=== PATIENT | male | born 1990 | race African-American/Black ===

== ENCOUNTER 2024-12-24 14:32 | Emergency (ER) | payer SELFPAY ==
[2024-12-24] VITALS (13 sets, daily range): BP systolic 88–130; BP diastolic 58–103; PULSE 69–94; RESP 14–25; TEMP 31.3–33.4; O2SAT 86–100; BMI 26.5
--- NOTE | 2024-12-24 14:42 | CT_ITS ---
PROCEDURE: BRAIN/HEAD WITHOUT CONTRAST 12/24/2024 REASON FOR EXAM: MENTAL STATUS CHANGE TECHNIQUE: Head CT without intravenous contrast. Coronal and Sagittal reconstruction series were provided. One or more dose reduction techniques were used (e.g., Automated exposure control, adjustment of the mA and/or kV according to patient size, use of iterative reconstruction technique. FINDINGS: Brain: Within normal limits for age CSF Spaces: Normal Sinuses/Mastoids: Clear at visualized levels Bones: Unremarkable. CT/Brain/Head without Contrast IMPRESSION: NORMAL NONCONTRAST HEAD CT. Reading Location: [id number]
--- NOTE | 2024-12-24 14:44 | EKG12_ITS ---
Test Reason : OD/POST ARREST Blood Pressure : */* mmHG Vent. Rate : 90 BPM Atrial Rate : 90 BPM P-R Int : 150 ms QRS Dur : 134 ms QT Int : 470 ms P-R-T Axes : 89 49 39 degrees QTcB Int : 574 ms Critical Test Result: Long QTc Normal sinus rhythm Non-specific intra-ventricular conduction block Abnormal ECG Baselie artifact affects QT measurement Confirmed by Jamey Porter ([id number]), assistant production editor MORIAH DAHL ([id number]) on 12/30/2024 12:59:32 PM Referred By: Confirmed By: Jamey Porter
--- NOTE | 2024-12-24 14:45 | EX.ED.CRITCA ---
HPI History of Present Illness Chief Complaint: Overdose Narrative Narrative: History and physical limited secondary to patient condition, intubation. According to EMS and to police, patient had a significant other who awoke and noticed that he was unresponsive. Police report that patient has history of heavy alcohol use, but no drug use. Upon EMS arrival, bystanders stated that he had a pulse, but when they checked he was pulseless. He was found to be in ventricular fibrillation so he was defibrillated at 120 J into asystole. EMS reports drooling IO, as well as obtaining IV access. They performed CPR for 12 minutes and 2 rounds of epinephrine were given prior to return of spontaneous circulation. They did note that he had a low blood pressure afterwards, as well as low blood sugar. They administered D10, and had intubated the patient. According to police, significant other stated that he has a history of heart problems that had not necessarily been addressed. PFSH PFSH Allergy/AdvReac Type Severity Reaction Status Date / Time barium sulfate Allergy Unknown Unknown Verified 12/24/24 14:45 Penicillins Allergy Unknown unknown Verified 12/24/24 14:45 Social History Smoking Status: Current every day smoker ROS ROS ED ROS Narrative Unable to obtain from patient secondary to patient condition. Review of Systems ROS Unobtainable: due to endotracheal tube EXAM Physical Exam Narrative Exam Narrative: GCS 3 T. Unresponsive to pain. Pupils fixed and dilated with no corneal reflex. Positive agonal respirations. Cardiovascular examination regular rate and rhythm. Palpable radial pulse. Abdomen soft and nontender without rigidity. No response to pain. Const Vital Signs: 12/24/24 14:32 12/24/24 14:34 12/24/24 14:59 Temperature 88.4 F L 89.2 F L Temperature Source Core Core Pulse Rate 69 94 Respiratory Rate 14 17 Respiratory Pattern Blood Pressure 94/58 L 98/58 L 130/103 H Blood Pressure Mean 70 71 112 Pulse Ox 100 100 Oxygen Delivery Method Mechanical Ventilator Mechanical Ventilator Fraction of Inspired Oxygen (FIO2) 12/24/24 15:05 12/24/24 15:30 12/24/24 15:30 Temperature 89.6 F L Temperature Source Core Pulse Rate 73 91 Respiratory Rate 25 H 20 H Respiratory Pattern Normal Blood Pressure 113/75 Blood Pressure Mean 87 Pulse Ox 100 86 Oxygen Delivery Method Mechanical Ventilator Fraction of Inspired Oxygen (FIO2) 100 50 12/24/24 16:00 Temperature Temperature Source Pulse Rate Respiratory Rate Respiratory Pattern Blood Pressure 94/70 Blood Pressure Mean 78 Pulse Ox 93 Oxygen Delivery Method Mechanical Ventilator Fraction of Inspired Oxygen (FIO2) MDM MDM MDM Narrative Medical decision making narrative: Concern is for cardiac arrest and brain status post arrest. Patient is hypothermic. Although he has spontaneous return of circulation, comprehensive for workup will be pursued. After IV fluid bolus, patient is maintaining his blood pressure. Patient started on Sun hugger. Warmed fluids were also administered. I reviewed his laboratory work and he has elevated white count at 13.5 with hemoglobin 13.8, hematocrit 41.6, platelet count 181. Potassium low at 2.9 which will be replaced. BUN of 23 with creatinine 3.06 consistent with acute kidney injury. ALT is elevated at 355, AST elevated at 324 with AST pending. This may be from shock liver. High-sensitivity troponin also elevated at 662 which I think is most likely from his cardiac arrest. Urine for drugs of abuse is negative. Alcohol level is negative as well. ABG was obtained and in review he has a pH of 6.87 with PCO2 of 89 and PO2 of 280. His rate was increased from 16 to [address] of the brain was obtained and results pending. On my independent review, I see no evidence of acute hemorrhage. In discussion with the patient's family, they would like him transferred to a tertiary care center. Additionally, critical care medicine is not available here currently, only through telemedicine. I discussed patient with [facility] And they currently have a waiting list. I then contacted [facility]. EKG was obtained and interpreted by myself independently as normal sinus rhythm at 90 bpm with QTc of 574. No acute ST changes. No STEMI. Patient admitted and bated in the field by EMS. On review/independent interpretation of his chest x-ray in 1 view, he has right mainstem intubation with whiteout of the left lung. His ET tube will be pulled back to 24 as respiratory therapy states that is currently at 28. Repeat chest x-ray will be performed afterwards. I discussed the patient with Dr. Ibarra with coronary care critical medicine. He would like to discuss the patient with medical ICU and Dr. Ortez with cardiology as well. There are available beds, and in discussion with the patient's family, they would like him transferred via [facility]. If air transport is available at that time, patient will be transferred in critical condition. History & Record Review Discussion w/independent historian: Family Lab Data Attestation: I reviewed the patient's lab results. Labs: Laboratory Results - last 24 hr 12/24/24 12/24/24 14:37 14:50 WBC 13.5 H RBC 4.53 L Hgb 13.8 Hct 41.6 MCV 91.8 MCH 30.5 MCHC 33.2 RDW Std Deviation 42.9 RDW Coeff of Brooks 12.8 Plt Count 181 MPV 8.8 Immature Gran % (Auto) 1.500 H Neut % (Auto) 76.3 H Lymph % (Auto) 13.9 L Freeborn % (Auto) 7.9 Eos % (Auto) 0.0 Baso % (Auto) 0.4 Absolute Neuts (auto) 10.3 H Absolute Lymphs (auto) 1.88 Nucleated RBC % 0.4 Sodium 141 Potassium 2.9 L Chloride 100 Carbon Dioxide 14.7 L Anion Gap 26 H BUN 23 H Creatinine 3.06 H Estim Creat Clear Calc 34.79 L Est GFR (MDRD) Non-Af 26 L BUN/Creatinine Ratio 7.4 L Glucose 96 Calcium 9.1 Total Bilirubin < 0.15 AST 324 H ALT 355 H Alkaline Phosphatase 58 Troponin T High Sens 662 H* Total Protein 7.1 Albumin 4.5 Globulin 2.6 Albumin/Globulin Ratio 1.7 Urine Opiates Screen NEGATIVE U Buprenorphine Qual NEGATIVE Ur Oxycodone Screen NEGATIVE Urine Methadone Screen PRESUMPTIVE POSITIVE Urine Fentanyl Screen NEGATIVE Ur Barbiturates Screen NEGATIVE Ur Phencyclidine Scrn NEGATIVE Ur Amphetamines Screen NEGATIVE U Benzodiazepines Scrn NEGATIVE Urine Cocaine Screen NEGATIVE U Cannabinoids Screen NEGATIVE Ethyl Alcohol < 10.1 ABG Data ABG results: ABG 12/24/24 15:09 Specimen Type ART Sample Site L Radial pH 6.88 L* Bicarbonate Actual 16.7 L Total CO2 19 Base Excess -17 L O2 Saturation 100 H O2 % 100.0 ABG pCO2 89.5 H* ABG pO2 281 H Junior Test Positive Respiration Rate 16 O2 Delivery Device Adult Vent Vent Mode AC Tidal Volume 450.0 POC PEEP 5 Crit Call To/Read Back Yes Blood Gas Notified Whom AR Blood Gas Notified Time 15:11:25 Radiography Chest X-Ray - ED: 1 View, Read by ED Physician, Read by Radiologist and - (Right mainstem bronchus intubation with a whiteout of left lung) Diagnostic Testing: Clinical Impression(s) from Imaging Studies Brain CT 12/24/24 14:42 IMPRESSION: NORMAL NONCONTRAST HEAD CT. Reading Location: [id number] Chest X-Ray 12/24/24 15:34 IMPRESSION: Endotracheal tube with the tip approximately 3 cm past the claire likely in the right mainstem bronchus with left lung collapse. Nasogastric tube with the tip below the diaphragm. Reading Location: [facility] Management Discussion w/another healthcare provider: Automatic Lump Making Machine Tender Critical Care Time Critical Care Time: Yes Critical care time (excluding procedures): 30-74 minutes (32), Including time spent:, Discussing w/Patient &/or Family/Nurse Practitioner Physicians Assistant, Discussing w/Consultants, Arranging Admission or Transfer and Performing Direct Patient Care at Bedside Discharge Plan Triage Chief Complaint: Overdose ED Provider: Lamine Hoffman Dx/Rx/DC Orders Clinical Impression: Cardiopulmonary arrest, Signs of return of spontaneous circulation, Respiratory failure, Hypothermia, Hypokalemia, Elevated troponin Primary Care Provider: Care Physician,No Primary Referrals: Care Physician,No Primary [Primary Care Provider] - Print Language: Guatemalan Disposition Disposition: Acute Care Hospital
[2024-12-24 14:51] LABS: Absolute Lymphocyte Count 1.88 X10^3/uL (0.83-4.51); Absolute Neutrophil Count 10.3 X10^3/uL (2.0-7.7); Basophil# 0.05 X10^3/uL; Basophil% 0.4 % (0-1); Hematocrit 41.6 % (40-54); Hemoglobin 13.8 g/dL (13.0-16.5); Lymphocyte # 1.88 X10^3/ul (0.83-4.51); Lymphocyte % 13.9 % (19-41); Mean Corp Hgb Conc 33.2 g/dL (32-36); Mean Corpuscular Hgb 30.5 pg (27.0-32.0); Mean Corpuscular Volume 91.8 fL (80-94); Mean Platelet Vol. 8.8 fl (6.2-12.0); Monocyte# 1.07 X10^3/uL; Monocyte% 7.9 % (0-10); NRBC Flagged by Analyzer 0.4 % (0-5); Neutrophil # 10.28 X10^3/uL (2.7-7.7); Neutrophil % 76.3 % (47-70); Platelet Count 181 K/mm3 (150-450); RBC Distribution Width CV 12.8 % (11.6-14.6); RBC Distribution Width SD 42.9 fl (35.1-43.9); Red Blood Count 4.53 M/mm3 (4.6-6.2); White Blood Count 13.5 K/mm3 (4.4-11.0)
[2024-12-24] MEDS: Rocuronium Bromide 50 MG/5 ML Vial IV (14:53)
[2024-12-24] MEDS: 0.9% Normal Saline (1000mL) 1,000 ML 1000 ML IV ×2 (15:00→15:49)
--- NOTE | 2024-12-24 15:07 | CPS ---
Pt was intubated by EMS on scene. Pt came to ER with 7.5 ETT, 28cm at lip and bilateral breath sounds noted.
[2024-12-24 15:08] LABS: Alcohol, Blood (Medical)-Serum < 10.1 mg/dL (<=10.0)
--- NOTE | 2024-12-24 15:11 | ED.RN ---
Per EMS they gave 4 narcans initially on scene. Pt then coded and per EMS they did CPR for 12 minutes and gave epi twice plus a push dose of epi. They intubated and gave D10 d/t blood glucose of 42. Pt arrived at ED intubated and with pulse but unresponsive. Blood Glucose on arrival was 84.
[2024-12-24 15:12] LABS: Amphetamine Urine NEGATIVE (<1000 ng/mL); Barbiturate Urine NEGATIVE (< 200 ng/mL); Benzodiazepine Urine NEGATIVE (< 200 ng/mL); Buprenorphine Urine NEGATIVE (< 200 ng/mL); Cocaine Urine NEGATIVE (< 300 ng/mL); Fentanyl, Urine NEGATIVE; Opiates Urine NEGATIVE (< 300 ng/mL); Oxycodone, Urine NEGATIVE (< 100 ng/mL); PCP Urine NEGATIVE (< 25 ng/mL); THC Urine NEGATIVE (< 50 ng/mL)
[2024-12-24 15:12] LABS: ALB/GLOB Ratio 1.7 RATIO (0.9-2.4); Alanine Aminotransfer ALT/SGPT 355 U/L (<=46); Albumin, Serum 4.5 g/dL (3.5-5.0); Alkaline Phosphatase 58 U/L (40-129); Anion Gap 26 (5-15); BUN 23 mg/dL (4-19); BUN/Creat Ratio 7.4 RATIO (10-20); Calcium,Total 9.1 mg/dL (7.6-11.0); Carbon Dioxide 14.7 mmol/L (21.0-32.0); Chloride 100 mmol/L (98-108); Creatinine, Serum 3.06 mg/dL (0.70-1.20); EST Glomerular Filtration Rate 26 (>60); Estimated Creatinine Clearance 34.79 ml/min (50-250); Globulin 2.6 g/dL (2.2-4.2); Glucose 96 mg/dL (70-99); Potassium 2.9 mmol/L (3.3-5.1); Protein, Total 7.1 g/dL (5.9-8.4); Sodium Level 141 mmol/L (133-145); Total Bilirubin < 0.15 mg/dL (0.00-1.30)
[2024-12-24 15:14] LABS: Allen Test Positive; Base Excess -17 mmol/L (-2 to +2); Bicarbonate 16.7 mmol/L (22-26); Blood Gas Specimen Type ART; Mode AC; O2 Delivery Device Adult Vent; PEEP 5; PO2 281 mmHG (75-100); RR 16; SITE L Radial; SO2 100 % (95-99); Time Given 15:11:25; Total Carbon Dioxide 19 mmol/L; pCO2 89.5 mmHg (35-45); pH 6.88 (7.35-7.45)
[2024-12-24 15:18] LABS: Troponin T High Sensitivity 662 ng/L (<=22)
[2024-12-24 15:30] LABS: Methadone Urine PRESUMPTIVE POSITIVE (< 300 ng/mL)
--- NOTE | 2024-12-24 15:34 | RAD_ITS ---
PROCEDURE: CHEST 1 VIEW (PORTABLE) 12/24/2024 REASON FOR EXAM: POSTINTUBATION BY EMS TECHNIQUE: Frontal view of the chest. FINDINGS: Hardware: Endotracheal tube with the tip 3 cm beyond the claire in the right mainstem bronchus. Nasogastric tube with the tip below the diaphragm. Heart: Cardiac and mediastinal contours are stable. Lungs: Opacification of the left hemithorax consistent with left lung collapse. Bones: The bones are unremarkable. Other: RAD/Chest 1 View (Portable) IMPRESSION: Endotracheal tube with the tip approximately 3 cm past the claire likely in the right mainstem bronchus with left lung collapse. Nasogastric tube with the tip below the diaphragm. Reading Location: [facility]
--- NOTE | 2024-12-24 15:41 | ED.RN ---
THIS QUALITY CONTROL CLERK FIRST CALLED [facility] TO TRANSFER PT, PER FAMILY REQUEST. TRANSFER WAS STARTED. [facility] CALLED BACK FOR DR AMARAL, AND ACCEPTED PT. PT IS WAITING ON AN ICU BED AT [facility]. PER [facility] WAITLIST FOR ICU BED IS TEN PTS LONG. [facility] ASKED THIS QUALITY CONTROL CLERK TO BEGIN TRANSFER TO [facility]. TRANSFER WAS STARTED AND NOW ([id number]) WAITING FOR A DR CALL BACK FROM [facility].
[2024-12-24 15:45] LABS: AST(SGOT) 324 U/L (<=37)
[2024-12-24] MEDS: KCL 40mEq in 0.9% NS 40 MEQ/1,000 ML IV.SOLN 250 MEQ IV (15:48)
--- NOTE | 2024-12-24 16:15 | RAD_ITS ---
PROCEDURE: CHEST 1 VIEW (PORTABLE) 12/24/2024 REASON FOR EXAM: ET TUBE PLACEMENT TECHNIQUE: Frontal view of the chest. COMPARISON: 12/24/2024 FINDINGS: Hardware: Interval retraction endotracheal tube, with the tip now 2.7 cm from the claire. Stable feeding tube. Heart: Heart size is mildly enlarged. Lungs: Significant interval improvement left bridger thorax aeration, with atelectasis in the lower lobe. Stable to slightly worsened airspace opacities in the right lower lobe. No pneumothorax. Bones: The bones are unremarkable. Other: RAD/Chest 1 View (Portable) IMPRESSION: See above Reading Location: [facility]
--- NOTE | 2024-12-24 17:30 | CM.ED ---
Social work Reason for referral: possible overdose with intubation This SW responded to patient's room to provide support to patient's family members present. Multiple family members and friends (about 20) were present in between patient's room and waiting room. Due to lack of other patient family needing it, the waiting room was opened up for this patient's friends and family as a private space (with warehouse freight handler permission). Over the next few hours, this SW responded to patient family needs as necessary (offering supportive presence, getting water, providing updates, actively listening, etc). Patient's toxicology screens came back negative for drugs of abuse and alcohol and this was expressed to patient's mother who was wondering. Per Dr. Hoffman's note, patient did have history of heart problems that had reportedly not necessarily been addressed. SW provided support to family and friends as needed until patient was transferred to [facility]. Karine Davidson, STEM ROLLER OR CRUSHER OPERATOR, RN CRITICAL CARE
--- NOTE | 2024-12-24 17:42 | ED.RN ---
Report called to Ernesto at [facility].
--- NOTE | 2024-12-24 17:50 | ED.RN ---
[facility] CALLED BACK WITH A BED AND THIS KNOWLEDGE ANALYST SET UP A RIDE. [facility] WAS CALLED REQUESTING A HELICOPTER FOR TRANSPORT. THEY WEREN'T FLYING. [facility] WAS CALLED AND THE ETA GIVEN WAS [phone].
[2024-12-24 18:18] LABS: Troponin T High Sens 2 HR 455 ng/L (<=22)
--- NOTE | 2024-12-24 18:19 | ED.RN ---
Critical Troponin of 455 received from lab. Landis, primary RN, and Dr. Zavaleta notified.
--- NOTE | 2024-12-24 18:26 | ED.RN ---
Care transfered to [facility].
== END 2024-12-24 18:41 | disposition short-term general hospital (02) ==
PROVIDERS: Emergency Provider Emergency Medicine; Visit Provider Emergency Medicine
DX: I46.9 Cardiac arrest, cause unspecified (principal); J96.90 Respiratory failure, unspecified, unspecified whether with hypoxia or hypercapnia; E87.6 Hypokalemia; R79.89 Other specified abnormal findings of blood chemistry; F17.200 Nicotine dependence, unspecified, uncomplicated
CPT/HCPCS: 31500; 31720; 36600; 51702; 70450; 71045; 80053; 80307; 82077; 82803; 84484; 85025; 87070; 87205; 93005; 94002; 96365; 96366; 96375; 99285; A4216

== ENCOUNTER → 2025-01-23 | Outpatient (CLI) | payer SELFPAY ==
[2025-01-23 15:27] LABS: Absolute Lymphocyte Count 2.06 X10^3/uL (0.83-4.51); Absolute Neutrophil Count 2.9 X10^3/uL (2.0-7.7); Basophil# 0.03 X10^3/uL; Basophil% 0.5 % (0-1); Eosinophil# 0.14 X10^3/uL; Eosinophils% 2.5 % (0-5); Hematocrit 36.8 % (40-54); Hemoglobin 12.8 g/dL (13.0-16.5); Lymphocyte # 2.06 X10^3/ul (0.83-4.51); Lymphocyte % 36.9 % (19-41); Mean Corp Hgb Conc 34.8 g/dL (32-36); Mean Corpuscular Hgb 30.2 pg (27.0-32.0); Mean Corpuscular Volume 86.8 fL (80-94); Monocyte# 0.45 X10^3/uL; Monocyte% 8.1 % (0-10); NRBC Flagged by Analyzer 0 % (0-5); Neutrophil # 2.87 X10^3/uL (2.7-7.7); Neutrophil % 51.3 % (47-70); Platelet Count 437 K/mm3 (150-450); RBC Distribution Width CV 13.2 % (11.6-14.6); Red Blood Count 4.24 M/mm3 (4.6-6.2); White Blood Count 5.6 K/mm3 (4.4-11.0)
[2025-01-23 15:37] LABS: ALB/GLOB Ratio 1.3 RATIO (0.9-2.4); AST(SGOT) 33 U/L (<=37); Alanine Aminotransfer ALT/SGPT 64 U/L (<=46); Albumin, Serum 4.5 g/dL (3.5-5.0); Alkaline Phosphatase 92 U/L (40-129); Anion Gap 14 (5-15); BUN 8 mg/dL (4-19); BUN/Creat Ratio 10.7 RATIO (10-20); CPK Total, Creatine Kinase 68 U/L (24-195); Calcium,Total 10.2 mg/dL (7.6-11.0); Carbon Dioxide 25.9 mmol/L (21.0-32.0); Chloride 98 mmol/L (98-108); Cholesterol 212 mg/dL (<=200); Creatinine, Serum 0.79 mg/dL (0.70-1.20); EST Glomerular Filtration Rate 118 (>60); Globulin 3.5 g/dL (2.2-4.2); Glucose 86 mg/dL (70-99); High Density Lipoprotein 45 mg/dL; Low Density Lipoprotein Calc. 145 mg/dL; Potassium 4.3 mmol/L (3.3-5.1); Sodium Level 138 mmol/L (133-145); Total Bilirubin 0.33 mg/dL (0.00-1.30); Triglycerides 111 mg/dL; Very Low Density Lipoprotein 22 mg/dL (5-40); cholesterol:hdl ratio screen 4.69
== END | disposition home or self-care (01) ==
PROVIDERS: PCP Family Medicine; Referring Provider Family Medicine; Visit Provider Family Medicine
DX: Z86.74 Personal history of sudden cardiac arrest (principal); Z87.39 Personal history of other diseases of the musculoskeletal system and connective tissue
CPT/HCPCS: 36415; 80053; 80061; 82550; 85025

== ENCOUNTER 2025-07-12 22:17 | Emergency (ER) | payer MEDICAID, SELFPAY ==
[2025-07-12 22:18] VITALS: BP 130/99; PULSE 88; RESP 18; TEMP 36.7; O2SAT 99; BMI 24.4
--- OUTSIDE RECORDS SUMMARY | 2025-07-12 22:46 | XMS RPT_ITS | CCD ---
Author Organization [facility] Care Team Providers Care Cpr Instructor Name Role Phone Vera Gagnon Attending Unavailable Vera Gagnon Consulting Unavailable Vera Gagnon Unavailable Tabitha Galaviz Unavailable Unavailable Marsha Prajapati Unavailable Unavailable Unavailable Unavailable Breanna Roman Primary Care Provider [phone] Care Physician, No Primary Primary Care Provider Unavailable Hector Amaral MD Attending Provider Hector Amaral MD Emergency Provider Dr. Roman Rubio MD Primary Care Provider [phone] Dr. Roman Rubio MD Attending Provider [phone] Roman Rubio MD Referring Provider Breanna Roman Primary Care Provider [phone] Hector Amaral Attending Unavailable Care Physician, No Primary Primary Care Unava ilable Roman Rubio Referring Unavailable Roman Rubio Attending Unavailable Roman Rubio Primary Care Unavailable LUAN WILSON Attending [facility] Primary Care Unavailable BEBO JONES Admitting Unavailable HECTOR AMARAL Referring Unavailable BREANNA ROMAN Primary Care Unavailable STEFAN STREET Referring Unavailabl e DARIAN, [place] Primary Care Unavailable RY ALTAMIRANO Attending Unavailable EVELIA, RY Referring Unavailable DARIAN, [place] Primary Care Unavailable ASSRY BELTRAN Attending Unavailable ASSAALee, RY Referring Unavailable DARIAN, [place] Primary Care Unavailable RY ALTAMIRANO Attending Unavailable DARIAN, [place] Primary Care Unavailable STEFAN STREET Referring Unavailabl e RANERIN, [place] Primary Care Unavailable MATRSTEFAN PETERSON Referring Unavailabl e Allergies Allergy Classification Reported Allergen(s) Allergy Type Date of Onset Reaction(s) Facility (1 source) Barium Sulfate Drug Allergy 12-24-2024 Unknown [facility] (1 source) Penicillins Allergy to substance 12-24-2024 unknown [facility] (1 source) Barium sulfate Drug allergy (disorder) 12-24-2024 [facility] Repository (1 source) Penicillins Drug allergy (disorder) 12-24-2024 [facility] Repository (4 sources) Barium sulfate Allergy to substance 12-24-2024 Unknown [facility] (4 sources) Penicillins Drug Allergy 12-24-2024 Unknown [facility] Medications Current Medications Medication Drug Class(es) Dates Sig (Normalized) Sig (Original) [id number] 200 actuat albuterol 0.09 mg/actuat metered dose inhaler (12 sources) beta2-Adrenergic Agonist Start: 04-10-2025 take 4 puff(s) by inhalation once 4 puff, Inhalation, Once, On Thu04/10/25 at 1215, For 1 dose, Administer using an inhaler spacer. 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 8.5 g 11 02/03/2025 02/03/2026 Active apixaban 5 mg oral tablet (20 sources) Factor Xa Inhibitor Start: 01-09-2025 End: 07-09-2025 take 1 tablet by mouth twice daily apixaban (Eliquis) 5 MG tablet Indications: Other acute pulmonary embolism without acute cor pulmonale (HCC) Take 1 tablet (5 mg) by mouth 2 times daily. Can start after starter pack finishes 312 tablet 02/03/2025 07/09/2025 Active Start: 01-09-2025 60 actuat budesonide 0.08 mg/actuat / formoterol fumarate 0.0045 mg/actuat metered dose inhaler (3 sources) Corticosteroid, beta2-Adrenergic Agonist Start: 05-26-2025 End: 11-22-2025 take 2 puff(s) by mouth twice daily budesonide-formoterol (Symbicort) 80-4.5 MCG/ACT inhaler Indications: 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 Inhale 2 puffs 2 times daily. Rinse mouth with water after use to reduce aftertaste and incidence of candidiasis. Do not swallow. 10.2 g 3 05/26/2025 11/22/2025 Active folic acid 1 mg oral tablet (17 sources) Start: 01-03-2025 End: 01-10-2026 take 1 tablet by mouth once daily in the evening folic acid (Folvite) 1 MG tablet Take 1 tablet (1 mg) by mouth daily. 30 tablet 11 01/09/2025 2:00 PM EDT 01/10/2025 01/10/2026 Active Start: 12-28-2024 End: 01-02-2025 (4 sources) Start: 01-10-2025 End: 02-08-2025 Start: 01-09-2025 End: 01-09-2025 Completed/Discontinued Medications Medication Drug Class(es) Dates Sig (Normalized) Sig (Original) acetaminophen 32 mg/ml oral solution (2 sources) Start: 12-27-2024 End: 12-28-2024 take 1000 mg by mouth every eight hours albuterol 0.833 mg/ml / ipratropium bromide 0.167 mg/ml inhalation solution (2 sources) Anticholinergic, beta2-Adrenergic Agonist Start: 12-28-2024 End: 01-09-2025 amoxicillin 875 mg / clavulanate 125 mg oral tablet (6 sources) Penicillin-class Antibacterial Start: 01-09-2025 End: 02-03-2025 take 1 tablet by mouth every twelve hours in the evening amoxicillin-clavul anate (Augmentin) 875-125 MG tablet Take 1 tablet by mouth every 12 hours for 42 doses. 42 tablet 01/09/2025 2:00 PM EDT 01/09/2025 02/03/2025 Discontinued Start: 01-08-2025 End: 01-30-2025 asenapine 5 mg sublingual ta blet (4 sources) Atypical Antipsychotic Start: 01-02-2025 End: 01-03-2025 calcium chloride 0.0014 meq/ ml / potassium chloride 0.004 meq/ml / sodium chloride 0.103 meq/ml / sodium lactate 0.028 meq/ml injectable solution (12 sources) Start: 01-02-2025 End: 01-03-2025 Start: 12-27-2024 End: 12-27-2024 Start: 12-24-2024 End: 12-26-2024 100 ml calcium gluconate 20 mg/ml injection (4 sources) Start: 12-29-2024 End: 12-30-2024 cholecalciferol 9.52 unt/ml / glucose 357 mg/ml oral gel (2 sources) Vitamin D Start: 12-25-2024 End: 01-09-2025 100 ml dexmedetomidine 0.004 mg/ml injection (6 sources) Central alpha-2 Adrenergic Agonist Start: 12-27-2024 End: 01-03-2025 docusate sodium 10 mg/ml ora l suspension (2 sources) Start: 12-31-2024 End: 01-02-2025 0.6 ml enoxaparin sodium 100 mg/ml prefilled syringe (4 sources) Low Molecular Weight Heparin Start: 2025 End: 01-08-2025 Start: 01-02-2025 End: 2025 escitalopram 10 mg oral tablet (2 sources) Serotonin Reuptake Inhibitor Start: 11-17-2018 take 1 tablet by mouth once daily at bedtime Lexapro 10 MG Oral Tablet 1 (one) Tablet qhs for 0 days Quantity: 30 {Tablet} Refills: 3 Ordered: 17-Nov-2018 Vera Gagnon DO, DO, Kathleen Start : 17-Nov-2018 Active 20 ml etomidate 2 mg/ml injection (2 sources) General Anesthetic Start: 12-28-2024 End: 12-28-2024 2 ml fentaNYL 0.05 mg/ml injection (4 sources) Opioid Agonist Start: 12-28-2024 End: 12-28-2024 Start: 12-28-2024 End: 12-28-2024 Start: 12-24-2024 End: 12-24-2024 2 ml furosemide 10 mg/ml inj ection (20 sources) Loop Diuretic Start: 01-08-2025 End: 01-08-2025 Start: 12-28-2024 End: 01-04-2025 Start: 12-27-2024 End: 12-27-2024 glucagon (rdna) 1 mg injecti on (2 sources) Antihypoglycemic Agent Start: 12-25-2024 End: 01-09-2025 50 ml glucose 50 mg/ml injec tion (2 sources) Start: 12-25-2024 End: 01-09-2025 1 ml haloperidol 5 mg/ml pre filled syringe (4 sources) Typical Antipsychotic Start: 12-30-2024 End: 01-09-2025 Start: 12-28-2024 End: 12-28-2024 Start: 12-28-2024 End: 12-28-2024 0.5 ml heparin sodium, porcine 56679 unt/ml prefilled syringe (2 sources) Unfractionated Heparin, Anti-coagulant Start: 12-24-2024 End: 01-02-2025 1 ml hydrALAZINE hydrochloride 20 mg/ml injection (2 sources) Arteriolar Vasodilator Start: 12-30-2024 End: 01-09-2025 take 20 mg intravenously every four hours as needed for hypertension hydrocortisone 10 mg oral tablet (14 sources) Corticosteroid Start: 01-03-2025 End: 01-03-2025 Start: 01-02-2025 End: 01-03-2025 Start: 12-31-2024 End: 01-02-2025 Start: 12-31-2024 End: 01-02-2025 Start: 12-25-2024 End: 12-31-2024 take 50 mg intravenously every eight hours 1 ml HYDROmorphone hydrochloride 1 mg/ml cartridge (4 sources) Opioid Agonist Start: 12-28-2024 End: 12-28-2024 insulin isophane, human 100 unt/ml injectable suspension (2 sources) Start: 12-26-2024 End: 01-02-2025 inject 5 [IU] by subcutaneous injection every twelve hours insulin, regular, human 100 unt/ml injectable solution (2 sources) Insulin Start: 12-26-2024 End: 01-04-2025 ketamine 10 mg/ml injectable solution (2 sources) General Anesthetic Start: 12-30-2024 End: 12-30-2024 1 ml ketorolac tromethamine 15 mg/ml cartridge (2 sources) Nonsteroidal Anti-inflammatory Drug, Cyclooxygenase Inhibitor Start: 12-28-2024 End: 12-28-2024 Start: 12-28-2024 End: 12-28-2024 labetalol hydrochloride 5 mg/ml injectable solution (2 sources) beta-Adrenergic Blessing Start: 12-30-2024 End: 01-09-2025 take 10 mg intravenously every four hours as needed for hypertension Lactobacillus (2 sources) Start: 01-10-2025 End: 02-08-2025 take 4 tablets by mouth once daily in the evening Lactobacillus 0.05-0.05 MG tablet Take 4 tablets by mouth daily for 29 doses. 116 tablet 01/09/2025 2:00 PM EDT 01/10/2025 02/08/2025 Start: 01-10-2025 End: 02-08-2025 take 4 tablets by mouth once daily in the evening Lactobacillus 0.05-0.05 MG tablet Take 4 tablets by mouth daily for 29 doses. 116 tablet 01/09/2025 2:00 PM EDT 01/10/2025 02/08/2025 Active lidocaine 0.04 mg/mg medicated patch (4 sources) Antiarrhythmic, Amide Local Anesthetic Start: 12-28-2024 End: 01-09-2025 1 ml LORazepam 2 mg/ml injection (8 sources) Benzodiazepine Start: 12-28-2024 End: 12-28-2024 Start: 12-28-2024 End: 12-28-2024 Start: 12-28-2024 End: 12-28-2024 Start: 12-28-2024 End: 12-29-2024 take 2 mg intravenously every six hours as needed for anxiety 100 ml magnesium sulfate 40 mg/ml injection (2 sources) Start: 12-25-2024 End: 12-25-2024 5 ml metoprolol tartrate 1 m g/ml injection (8 sources) beta-Adrenergic Blessing Start: 2025 End: 01-09-2025 Start: 2025 End: 2025 Start: 2025 End: 2025 Start: 2025 End: 2025 Start: 01-05-2025 End: 2025 2 ml midazolam 1 mg/ml injec tion (10 sources) Benzodiazepine Start: 12-28-2024 End: 01-02-2025 Start: 12-24-2024 End: 12-24-2024 Start: 12-24-2024 End: 12-27-2024 mupirocin 0.02 mg/mg topical ointment (2 sources) RNA Synthetase Inhibitor Antibacterial Start: 12-24-2024 End: 12-29-2024 1 ml naloxone hydrochloride 0.4 mg/ml injection (2 sources) Opioid Antagonist Start: 12-24-2024 End: 01-09-2025 polyethylene glycol 3350 62771 mg powder for oral solution (2 sources) Osmotic Laxative Start: 12-28-2024 End: 01-09-2025 take 17 g by mouth every twenty-four hours as needed for constipation microencapsulated potassium chloride 10 meq extended release oral tablet (20 sources) Start: 01-05-2025 End: 2025 take 40 mEq by mouth every four hours Start: 01-03-2025 End: 01-03-2025 Start: 01-01-2025 End: 01-01-2025 Start: 12-28-2024 End: 01-02-2025 potassium phosphate 155 mg / sodium phosphate, dibasic 852 mg / sodium phosphate, monobasic 130 mg oral tablet (2 sources) Start: 12-30-2024 End: 12-30-2024 100 ml propofol 10 mg/ml inj ection (6 sources) General Anesthetic Start: 12-28-2024 End: 01-02-2025 Start: 12-25-2024 End: 12-27-2024 QUEtiapine 25 mg oral tablet (12 sources) Atypical Antipsychotic Start: 01-03-2025 End: 01-09-2025 Start: 12-31-2024 End: 01-02-2025 Start: 12-31-2024 End: 01-02-2025 Start: 12-30-2024 End: 12-31-2024 Start: 12-29-2024 End: 12-30-2024 rocuronium bromide 10 mg/ml injectable solution (2 sources) Nondepolarizing Neuromuscular Blessing Start: 12-28-2024 End: 12-28-2024 sennosides, intermediate 1.76 mg/ml oral solution (2 sources) Start: 12-31-2024 End: 01-02-2025 simethicone 80 mg chewable tablet (2 sources) Start: 01-03-2025 End: 01-09-2025 10 ml sodium bicarbonate 84 mg/ml injection (2 sources) Start: 12-25-2024 End: 12-25-2024 sodium chloride 30 mg/ml inhalation solution (8 sources) Start: 01-02-2025 End: 01-09-2025 Start: 12-27-2024 End: 01-07-2025 take 5-40 mL intraluminal route every eight hours Start: 12-24-2024 End: 01-09-2025 sodium zirconium cyclosilicate 30093 mg powder for oral suspension (4 sources) Start: 12-25-2024 End: 12-25-2024 thiamine 100 mg oral tablet (6 sources) Start: 12-31-2024 End: 03-10-2025 take 1 tablet by mouth once daily in the evening thiamine (Vitamin B1) 100 MG tablet Take 1 tablet (100 mg) by mouth daily. 60 tablet 01/09/2025 2:00 PM EDT 01/09/2025 03/10/2025 varenicline 1 mg oral tablet (3 sources) Partial Cholinergic Nicotinic Agonist Start: 12-20-2018 take 1 tablet by mouth once daily Chantix Continuing Month [place] 1 MG Oral Tablet 1 (one) Tablet qd for 0 days Quantity: 1 {Package} Refills: 3 Ordered: 20-Dec-2018 Marsha Prajapati LPN Start : 20-Dec-2018 Active Start: 11-17-2018 take 1 tablet by ifrah twice daily Chantix Starting Month [place] 0.5 MG X 11 & 1 MG X 42 Oral Tablet 1 (one) Tablet bid for 0 days Quantity: 1 {Package} Refills: 0 Ordered: 17-Nov-2018 Vera Gagnon DO, DO, Kathleen Start : 17-Nov-2018 Active (20 sources) Start: 01-08-2025 End: 01-09-2025 [Order 1 Start] Name: apixab an (Eliquis) tablet 10 mg Signed Summary: 10 mg, Oral, 2 times daily, First dose on 01/08/25 at 2100, For 7 days, Anticoagulant [Order 1 End] [Order 2 Start] Name: apixaban (Eliquis) tablet 5 mg Signed Summary: 5 mg, Oral, 2 times daily, First dose on [place] 01/15/25 at 2100, Anticoagulant [Order 2 End] Start: 01-07-2025 End: 01-08-2025 take 3000 mg intravenously every six hours Start: 01-05-2025 End: 01-09-2025 take 2.5 mg by mouth every four hours as needed for pain [Order 1 Start] Name: oxyCODONE (Roxicodone) immediate release tablet 2.5 mg Signed Summary: 2.5 mg, Oral, Every 4 hours PRN, moderate pain (4-6), Starting on [facility] 01/05/25 at 1943 [Order 1 End] [Order 2 Start] Name: oxyCODONE (Roxicodone) immediate release tablet 5 mg Signed Summary: 5 mg, Oral, Every 4 hours PRN, severe pain (7-10), Starting on [facility] 01/05/25 at 1943 [Order 2 End] Start: 01-01-2025 End: 01-01-2025 Start: 01-01-2025 End: 01-01-2025 Start: 12-31-2024 End: 01-02-2025 Start: 12-31-2024 End: 01-01-2025 take 500 mg intravenously every twelve hours Start: 12-28-2024 End: 12-28-2024 Start: 12-28-2024 End: 12-28-2024 Start: 12-26-2024 End: 12-31-2024 take 4500 mg intravenously every six hours Start: 12-26-2024 End: 12-26-2024 take 2000 mg intravenously every eight hours Start: 12-26-2024 End: 12-26-2024 Start: 12-26-2024 End: 12-26-2024 Start: 12-25-2024 End: 01-09-2025 [Order 1 Start] Name: pantop razole (ProtoNix) EC tablet 40 mg Signed Summary: 40 mg, Oral, Nightly, First dose on [place] 12/25/24 at 2100, Do not crush, chew, or split. [Order 1 End] [Order 2 Start] Name: pantoprazole (ProtoNix) 40 mg in sodium chloride (PF) 0.9 % 10 mL injection Signed Summary: 40 mg, IntraVENous, Administer over 2 Minutes, Nightly, First dose on Sun 5/25 at 2100, Give only if unable to tolerate po. [Order 2 End] Start: 12-25-2024 End: 12-27-2024 Start: 12-25-2024 End: 12-25-2024 Start: 12-25-2024 End: 12-25-2024 Start: 12-24-2024 End: 12-26-2024 take 2000 mg intravenously every twelve hours Start: 12-24-2024 End: 12-27-2024 Start: 12-24-2024 End: 12-25-2024 Start: 12-24-2024 End: 01-09-2025 take 4 mg by mouth every eight hours as needed for nausea and vomiting [Order 1 Start] Name: ondansetron ODT (Zofran-ODT) disintegrating tablet 4 mg Signed Summary: 4 mg, Oral, Every 8 hours PRN, nausea, vomiting, Starting on 5/3/25 at 1956, 1st Line. If inadequate response within 60 minutes, proceed to next-line agent or contact provider if no further options ordered. Patient should allow tablet to dissolve on tongue. Do not remove from blister pack until just before administering. [Order 1 End] [Order 2 Start] Name: ondansetron (Zofran) injection 4 mg Signed Summary: 4 mg, IntraVENous, Every 6 hours PRN, nausea, vomiting, Starting on 5/3/25 at 1956, 1st Line. Give IV if patient is unable to take orally. If inadequate response within 60 minutes, proceed to next-line agent or contact provider if no further options ordered. [Order 2 End] (4 sources) Start: 2025 End: 2025 Start: 2025 End: 2025 (2 sources) Start: 2025 End: 2025 (16 sources) Start: 01-03-2025 End: 01-03-2025 Start: 01-02-2025 End: 01-02-2025 Start: 12-30-2024 End: 12-30-2024 Start: 12-29-2024 End: 12-29-2024 Start: 12-28-2024 End: 12-29-2024 Start: 12-28-2024 End: 12-28-2024 Start: 12-28-2024 End: 12-28-2024 Start: 12-27-2024 End: 12-27-2024 (10 sources) Start: 12-30-2024 End: 01-02-2025 Start: 12-28-2024 End: 12-30-2024 Start: 12-27-2024 End: 12-28-2024 Start: 12-25-2024 End: 12-27-2024 Start: 12-24-2024 End: 12-25-2024 (2 sources) Start: 12-28-2024 End: 01-03-2025 take 1000 mg intravenously every eight hours (2 sources) Start: 12-28-2024 End: 01-07-2025 (6 sources) Start: 12-26-2024 End: 12-26-2024 Start: 12-25-2024 End: 12-26-2024 Start: 12-24-2024 End: 12-24-2024 (2 sources) Start: 12-26-2024 End: 12-27-2024 (2 sources) Start: 12-25-2024 End: 01-09-2025 (2 sources) Start: 12-25-2024 End: 12-27-2024 (2 sources) Start: 12-25-2024 End: 12-27-2024 (2 sources) Start: 12-24-2024 End: 12-25-2024 Problems Active Problems Problem Classification Problem Date Documented Date Episodic/Chronic Administrative/social admission (2 sources) Counseling procedure with explicit context; Translations: [Tobacco abuse counseling] 11-17-2018 Episodic Anxiety disorders (4 sources) Anxiety; Translations: [Anxiety] 11-17-2018 Chronic Asthma (5 sources) Uncomplicated moderate persistent asthma; Translations: [Moderate persistent asthma, uncomplicated] Onset: 02-03-2025 02-03-2025 Chronic Cardiac arrest and ventricular fibrillation (20 sources) Cardiac arrest; Translations: [Cardiac arrest, cause unspecified] Onset: 12-24-2024 12-28-2024 Chronic Fluid and electrolyte disorders (1 source) Hypokalemia; Translations: [Hypokalemia] 01-01-2025 Episodic Other circulatory disease (1 source) Signs of return of spontaneous circulation; Translations: [Other specified symptoms and signs involving the circulatory and respiratory systems] 01-01-2025 Episodic Other circulatory disease (1 source) Personal history of sudden cardiac arrest; Translations: [Personal history of sudden cardiac arrest] Onset: 03-01-2025 Episodic Other injuries and conditions due to external causes (2 sources) Mucoid impaction of bronchi; Translations: [Unspecified foreign body in bronchus causing asphyxiation, initial encounter] 12-28-2024 Episodic Other injuries and conditions due to external causes (1 source) Hypothermia; Translations: [Hypothermia, initial encounter] 01-01-2025 Episodic Other liver diseases (4 sources) Enzyme level - finding; Translations: [Transaminitis] 01-09-2025 Episodic Other lower respiratory disease (4 sources) Nodule of lung; Translations: [Solitary pulmonary nodule] 05-26-2025 Episodic Pneumonia (except that caused by tuberculosis or sexually transmitted disease) (13 sources) Abscess of lung with pneumonia ; Translations: [Abscess of lung with pneumonia] Onset: 04-10-2025 02-03-2025 Episodic Pulmonary heart disease (9 sources) Acute pulmonary embolism; Translations: [Other pulmonary embolism without acute cor pulmonale] Onset: 02-03-2025 02-03-2025 Episodic Residual codes; unclassified (1 source) Body mass index (BMI) 23.0-23.9, adult; Translations: [BMI 23.0-23.9, adult] 11-17-2018 Episodic Residual codes; unclassified (2 sources) Edema of lower extremity; Translations: [Localized edema] 12-25-2024 Episodic Residual codes; unclassified (2 sources) Other specified conditions influencing health status; Translations: [Alcohol use disorder] 01-09-2025 Episodic Respiratory failure; insufficiency; arrest (adult) (1 source) Respiratory failure; Translations: [Respiratory failure, unspecified, unspecified whether with hypoxia or hypercapnia] 01-01-2025 Episodic Substance-related disorders (2 sources) Smoker; Translations: [Current smoker] 12-20-2018 Chronic Unclassified (1 source) Elevation of levels of liver transaminase levels; Translations: [Elevation of levels of liver transaminase levels] Onset: 12-24-2024 Unclassified (1 source) Alcohol use, unspecified, uncomplicated; Translations: [Alcohol use, unspecified, uncomplicated] Onset: 12-24-2024 Past or Other Problems Problem Classification Problem Date Documented Date Episodic/Chronic Other injuries and conditions due to external causes (2 sources) Unspecified foreign body in bronchus causing asphyxiation, initial encounter; Translations: [Unspecified foreign body in bronchus causing asphyxiation, initial encounter] Onset: 12-24-2024 Episodic Other screening for suspected conditions (not mental disorders or infectious disease) (7 sources) Ultrasonography of liver abnormal; Translations: [Abnormal findings on diagnostic imaging of liver and biliary tract] Onset: 12-24-2024 01-09-2025 Episodic Residual codes; unclassified (2 sources) Localized edema; Translations: [Localized edema] Onset: 12-24-2024 Episodic Unclassified (2 sources) Unclassified (4 sources) Encounter for screening for lipid disorder; Translations: [Screening status] 11-17-2018 Unclassified (2 sources) Tobacco abuse counseling Unclassified (3 sources) Current smoker Unclassified (3 sources) BMI 23.0-23.9, adult; Translations: [Body mass index 20-24 - normal] 11-17-2018 Unclassified (1 source) Elevation of levels of liver transaminase levels; Translations: [Elevation of levels of liver transaminase levels] Onset: 12-24-2024 Unclassified (1 source) Alcohol use, unspecified, uncomplicated; Translations: [Alcohol use, unspecified, uncomplicated] Onset: 12-24-2024 Results Test Name Value Interpretation Reference Range Facility 36on 04-20-2025 36 Called to RS 04/[address] Comer Normal [facility] CT CHEST WO IV CONTRASTon CT CHEST WO IV CONTRAST Normal [facility] 36on 04-11-2025 36 Normal [facility] No Panel Informationon 04-10 [facility] 37on 02-03-2025 37 Normal [facility] Progress Noteon 02-03-2025 Progress Note Normal [facility] Absolute lymphocyte countOrd ered By: Roman Rubio on 01-23-2025 Lymphocytes Auto (Unsp spec) [#/Vol] 2.06 10*3/uL 0.83-4.51 [facility] Absolute neutrophil countOrd ered By: Roman Rubio on 01-23-2025 Neutrophils (Bld) [#/Vol] 2.9 10*3/uL 2.0-7.7 [facility] Anion gap in Serum or Plasma Ordered By: Roman Rubio on 01-23-2025 Anion gap [Moles/Vol] 14 mmol/L 5-15 [facility] Automated lymphocyte count a s percentage of total leukocytesOrdered By: Roman Rubio on 01-23-2025 Lymphocytes/100 WBC Auto (Unsp spec) 36.9 % - [facility] BUN/creatinine ratioOrdered By: Roman Rubio on 01-23-2025 Urea nitrogen/Creatinine [Mass ratio] 10.7 mg/mg 10- [facility] Basophil percentageOrdered B y: Roman Rubio on 01-23-2025 Basophils/100 WBC (Bld) 0.5 % 0-1 [facility] Bilirubin, totalOrdered By: Roman Rubio on 01-23-2025 Bilirubin [Mass/Vol] 0.33 mg/dL 0.00-1.30 [facility] CBC W/Diff, Automatedon Absolute Lymph 2.06 X10 3/uL Normal 0.83-4.51 [facility] Comment on above: Performed By: #### M 100.240, #### [facility] [address] [place], [address] Absolute Neut 2.9 X10 3/uL Normal 2.0-7.7 [facility] Comment on above: Performed By: #### M 100.240, #### [facility] [address] [place], [address] Basophils/100 WBC (Bld) 0.5 % Normal 0-1 [facility] Comment on above: Performed By: #### M 100.240, #### [facility] [address] [place], [address] Eosinophils/100 WBC (Bld) 2.5 % Normal 0-5 [facility] Comment on above: Performed By: #### M 100.2400, #### [facility] [address] [place], [address] Erythrocyte distribution width (RBC) [Ratio] 13.2 % Normal 11.6-14.6 [facility] Comment on above: Performed By: #### M 100.2400, #### [facility] [address] [place], [address] Hematocrit (Bld) [Volume fraction] 36.8 % Low 40-54 [facility] Comment on above: Performed By: #### M 100.240, #### [facility] [address] [place], [address] Hemoglobin (Bld) [Mass/Vol] 12.8 g/dL Low 13.0-16.5 [facility] Comment on above: Performed By: #### .240, #### [facility] [address] [place], [address] IG% 0.700 Normal 0.0-0.9 [facility] Comment on above: Result Comment: IG% - Immature Granulocytes (promyelocytes, myelocytes and metamyelocytes) > 1% indicates that a LEFT SHIFT is Present. Performed By: #### M 100.240, #### [facility] [address] [place], [address] Lymphocytes/100 WBC (Bld) 36.9 % Normal 19-41 [facility] Comment on above: Performed By: #### M 100.2400, #### [facility] [address] [place], [address] MCH (RBC) [Entitic mass] 30.2 pg Normal 27.0-32.0 [facility] Comment on above: Performed By: #### M 100.240, #### [facility] [address] [place], [address] MCHC (RBC) [Mass/Vol] 34.8 g/dL Normal 32-36 [facility] Comment on above: Performed By: #### M 100.2400, #### [facility] [address] [place], [address] MCV (RBC) [Entitic vol] 86.8 fL Normal 80-94 [facility] Comment on above: Performed By: #### M 100.240, #### [facility] [address] [place], [address] Monocytes/100 WBC (Bld) 8.1 % Normal 0-10 [facility] Comment on above: Performed By: #### M 100.240, #### [facility] [address] [place], [address] Neutrophils/100 WBC (Bld) 51.3 % Normal 47-70 [facility] Comment on above: Performed By: #### M 100.240, #### [facility] [address] [place], [address] Nucleated RBC (Bld) [#/Vol] 0 10*3/uL Normal 0-5 [facility] Comment on above: Performed By: #### M 100.240, #### [facility] [address] [place], [address] Platelet mean volume (Bld) [Entitic vol] 9.0 fL Normal 6.2-12.0 [facility] Comment on above: Performed By: #### M 100.240, #### [facility] [address] [place], [address] Platelets (Bld) [#/Vol] 437 10*3/uL Normal 150-450 [facility] Comment on above: Performed By: #### M 100.2400, M100.1999 #### [facility] [address] [place], [address] RBC (Bld) [#/Vol] 4.24 10*6/uL Low 4.6-6.2 [facility] Comment on above: Performed By: #### M 100.2400, M100.1999 #### [facility] [address] [place], [address] RDW SD 41.0 fl Normal 35.1-43.9 [facility] Comment on above: Performed By: #### M 100.2400, M1.1999 #### [facility] [address] [place], [address] WBC (Bld) [#/Vol] 5.6 10*3/uL Normal 4.4-11.0 [facility] Comment on above: Performed By: #### M 100.2400, .1999 #### [facility] [address] [place], [address] CPK Total, Creatine Kinaseon 01-23-2025 CPK TOTAL 68 U/L Normal 24-195 [facility] Comment on above: Performed By: #### M 100.2400, M1 #### [facility] [address] [place], [address] Calculated very low density lipoprotein (VLDL) cholesterol measurementOrdered By: Roman Rubio on 01-23-2025 Calculated very low density lipoprotein (VLDL) cholesterol measurement 22 mg/dL 5-40 [facility] Carbon dioxide, total [Moles /volume] in Central venous bloodOrdered By: Roman Rubio on 01-23-2025 CO2 [Moles/Vol] 25.9 mmol/L 21.0-32.0 [facility] Chloride assayOrdered By: Sony Rubio on 01-23-2025 Chloride [Moles/Vol] 98 mmol/L 98-108 [facility] Comprehensive Metabolic Prof ilon 01-23-2025 Albumin [Mass/Vol] 4.5 g/dL Normal 3.5-5.0 [facility] Comment on above: Performed By: #### M 100.2400, #### [facility] [address] [place], [address] Albumin/Globulin [Mass ratio] 1.3 {ratio} Normal 0.9-2.4 [facility] Comment on above: Performed By: #### M 100.240, #### [facility] [address] [place], [address] ALK PHOS 92 U/L Normal 40-129 [facility] Comment on above: Performed By: #### M 100.240, #### [facility] [address] [place], [address] ALT [Catalytic activity/Vol] 64 U/L High <=46 [facility] Comment on above: Performed By: #### M 100.2400, #### [facility] [address] [place], [address] AST [Catalytic activity/Vol] 33 U/L Normal <=37 [facility] Comment on above: Performed By: #### M 100.2400, #### [facility] [address] [place], [address] Bilirubin [Mass/Vol] 0.33 mg/dL Normal 0.00-1.30 [facility] Comment on above: Performed By: #### M 100.2400, #### [facility] [address] [place], [address] BUN/CRE 10.7 RATIO Normal 10-20 [facility] Comment on above: Performed By: #### M 100.2400, #### [facility] [address] [place], [address] Calcium [Mass/Vol] 10.2 mg/dL Normal 7.6-11.0 [facility] Comment on above: Performed By: #### M 100.2400, #### [facility] [address] [place], [address] Chloride [Moles/Vol] 98 mmol/L Normal 98-108 [facility] Comment on above: Performed By: #### M 100.2400, #### [facility] [address] [place], [address] CO2 [Moles/Vol] 25.9 mmol/L Normal 21.0-32.0 [facility] Comment on above: Performed By: #### M 100.2400, #### [facility] [address] [place], [address] Creatinine [Mass/Vol] 0.79 mg/dL Normal 0.70-1.20 [facility] Comment on above: Performed By: #### M 100.2400, #### [facility] [address] [place], [address] GAP 14 Normal 5-15 [facility] Comment on above: Performed By: #### M 100.2400, #### [facility] [address] [place], [address] GFR/1.73 sq M.predicted among non-blacks MDRD (S/P/Bld) [Vol rate/Area] 118 mL/min/{1.73_m2} Normal >60 [facility] Comment on above: Result Comment: mL/m in/1.73m2 CKD-EPI Creatinine Equation (2020) Performed By: #### M 100.2400, #### [facility] [address] [place], [address] Globulin (S) [Mass/Vol] 3.5 g/dL Normal 2.2-4.2 [facility] Comment on above: Performed By: #### M 100.2400, M1.1999 #### [facility] [address] [place], [address] Glucose [Mass/Vol] 86 mg/dL Normal 70-99 [facility] Comment on above: Performed By: #### M 100.2400, .1999 #### [facility] [address] [place], [address] Potassium [Moles/Vol] 4.3 mmol/L Normal 3.3-5.1 [facility] Comment on above: Performed By: #### M 100.2400, .1999 #### [facility] [address] [place], [address] Sodium [Moles/Vol] 138 mmol/L Normal 133-145 [facility] Comment on above: Performed By: #### M 100.2400, #### [facility] [address] [place], [address] T PROT 8.0 g/dL Normal 5.9-8.4 [facility] Comment on above: Performed By: #### M 100.2400, M1 #### [facility] [address] [place], [address] Urea nitrogen [Mass/Vol] 8 mg/dL Normal 4-19 [facility] Comment on above: Performed By: #### M 100.2400, M1 #### [facility] [address] [place], [address] Eosinophil percentageOrdered By: Roman Rubio on 01-23-2025 Eosinophils/100 WBC (Bld) 2.5 % 0-5 [facility] Erythrocyte distribution wid th ratioOrdered By: Roman Rubio on 01-23-2025 Erythrocyte distribution width (RBC) [Ratio] 13.2 % 11.6-14.6 [facility] Erythrocyte distribution wid th standard deviationOrdered By: Roman Rubio on 01-23-2025 Erythrocyte distribution width (RBC) [Ratio] 41.0 fl 35.1-43.9 [facility] Glomerular filtration rate ( GFR) estimation/1.73 sq m using serum, plasma, or whole bOrdered By: Roman Rubio on 01-23-2025 GFR/1.73 sq M.predicted among non-blacks MDRD (S/P/Bld) [Vol rate/Area] 118 mL/min/{1.73_m2} >60 [facility] Comment on above: mL/min/1.73m2 CKD-EP I Creatinine Equation (2020) Hematocrit Auto (Bld) [Volum e fraction]Ordered By: Roman Rubio on 01-23-2025 Hematocrit (Bld) [Volume fraction] 36.8 % Low 40-54 [facility] Hemoglobin measurementOrdere d By: Roman Rubio on 01-23-2025 Hemoglobin (Bld) [Mass/Vol] 12.8 g/dL Low 13.0-16.5 [facility] Immature granulocytes/100 WB C Auto (Bld)Ordered By: Roman Rubio on 01-23-2025 Immature granulocytes/100 WBC (Bld) 0.700 % 0.0-0.9 [facility] Comment on above: IG% - Immature Granu locytes (promyelocytes, myelocytes and metamyelocytes) > 1% indicates that a LEFT SHIFT is Present. LDL calc ser/plasOrdered By: Roman Rubio on 01-23-2025 Cholesterol in LDL [Mass/Vol] 145 mg/dL [facility] Comment on above: Djcriappni=741-006 m g/dL & Higher Mnxb=564 mg/dL or greater Laboratory - Chemistry and C hemistry - challengeOrdered By: Roman Rubio on 01-23-2025 AST [Catalytic activity/Vol] 33 U/L <38 [facility] Lipid Profileon 01-23-2025 CHOL:HDL 4.69 Normal [facility] Comment on above: Performed By: #### M 100.2400, M100.2000 #### [facility] [address] [place], [address] Cholesterol [Mass/Vol] 212 mg/dL High <=200 [facility] Comment on above: Result Comment: Chol esterol level, Desirable <200 mg/dL Borderline high cholesterol 200-239 mg/dL High cholesterol >=240 mg/dL Recommendations of the NCEP Adult Treatment Panel for the following risk-cutoff thresholds for the [place] population. Performed By: #### M 100.2400, M100.1999 #### [facility] [address] [place], [address] Cholesterol in HDL [Mass/Vol] 45 mg/dL Normal [facility] Comment on above: Result Comment: Libra onal Cholesterol Education Program (NCEP) guidelines: <40 mg/dL: Low HDL-cholesterol (major risk factor for CHD) >= 60 mg/dL: High HDL-cholesterol (negative risk factor for CHD) HDL-cholesterol is affected by a number of factors, e.g. smoking, exercise, hormones, sex and age. Performed By: #### M 100.2400, M1 #### [facility] [address] [place], [address] Cholesterol in LDL [Mass/Vol] 145 mg/dL Normal [facility] Comment on above: Result Comment: Bord kpxbpn=766-500 mg/dL Higher Etrg=702 mg/dL or greater Performed By: #### M 100.2400, M100.1999 #### [facility] [address] [place], [address] Cholesterol in VLDL [Mass/Vol] 22 mg/dL Normal 5-40 [facility] Comment on above: Performed By: #### M 100.2400, M100 #### [facility] [address] [place], [address] Triglyceride [Mass/Vol] 111 mg/dL Normal [facility] Comment on above: Result Comment: The drugs N-Acetylcysteine and Metamizole may falsely depress this assay. Normal range: <150 mg/dL Borderline High: 150-199 mg/dL High: 200-499 mg/dL Very High: >500 mg/dL Performed By: #### M 100.2400, M100.2000 #### [facility] [address] [place], [address] MCV (mean corpuscular volume ) determinationOrdered By: Roman Rubio on 01-23-2025 MCV (RBC) [Entitic vol] 86.8 fL 80-94 [facility] Mean corpuscular hemoglobin (MCH) determinationOrdered By: Roman Rubio on 01-23-2025 MCH (RBC) [Entitic mass] 30.2 pg 27.0-32.0 [facility] Mean corpuscular hemoglobin concentration (MCHC) determinationOrdered By: Roman Rubio on 01-23-2025 MCHC (RBC) [Mass/Vol] 34.8 g/dL 32-36 [facility] Mean platelet volume determi nationOrdered By: Roman Rubio on 01-23-2025 Platelet mean volume (Bld) [Entitic vol] 9.0 fL 6.2-12.0 [facility] Monocyte percentageOrdered B y: Roman Rubio on 01-23-2025 Monocytes/100 WBC (Bld) 8.1 % 0-10 [facility] Neutrophil percentageOrdered By: Roman Rubio on 01-23-2025 Neutrophils/100 WBC (Bld) 51.3 % 47-70 [facility] Nucleated red blood cell per centageOrdered By: Roman Rubio on 01-23-2025 Nucleated RBC/100 WBC (Bld) [Ratio] 0 % 0-5 [facility] Platelet countOrdered By: Sony Rubio on 01-23-2025 Platelets (Bld) [#/Vol] 437 10*3/uL 150-450 [facility] Potassium measurement (mass/ volume)Ordered By: Roman Rubio on 01-23-2025 Potassium (Unsp spec) [Mass/Vol] 4.3 mmol/L 3.3-5.1 [facility] RBC Auto (Bld) [#/Vol]Ordere d By: Roman Rubio on 01-23-2025 RBC (Bld) [#/Vol] 4.24 10*6/uL Low 4.6-6.2 [facility] Screening total cholesterol/ high density lipoprotein (HDL) cholesterol ratioOrdered By: Roman Rubio on 01-23-2025 Cholesterol.total/Chol esterol in HDL [Mass ratio] 4.69 {ratio} [facility] Serum creatinine measurement (mass/volume)Ordered By: Roman Rubio on 01-23-2025 Creatinine [Mass/Vol] 0.79 mg/dL 0.70-1.20 [facility] Serum globulin measurementOr dered By: Roman Rubio on 01-23-2025 Globulin (S) [Mass/Vol] 3.5 g/dL 2.2-4.2 [facility] Serum glucose measurement (m ass/volume)Ordered By: Roman Rubio on 01-23-2025 Glucose [Mass/Vol] 86 mg/dL 70-99 [facility] Serum or plasma alanine nichole otransferase (ALT) measurementOrdered By: Roman Rubio on 01-23-2025 ALT [Catalytic activity/Vol] 64 U/L High <47 [facility] Serum or plasma albumin anisha urement (mass/volume)Ordered By: Roman Rubio on 01-23-2025 Albumin [Mass/Vol] 4.5 g/dL 3.5-5.0 [facility] Serum or plasma albumin/glob ulin mass ratioOrdered By: Roman Rubio on 01-23-2025 Albumin/Globulin [Mass ratio] 1.3 {ratio} 0.9-2.4 [facility] Serum or plasma alkaline tess sphatase measurementOrdered By: Roman Rubio on 01-23-2025 ALP [Catalytic activity/Vol] 92 U/L 40-129 [facility] Serum or plasma calcium anisha urement (mass/volume)Ordered By: Roman Rubio on 01-23-2025 Calcium [Mass/Vol] 10.2 mg/dL 7.6-11.0 [facility] Serum or plasma cholesterol in HDL measurement (mass/volume)Ordered By: Roman Rubio on 01-23-2025 Cholesterol in HDL [Mass/Vol] 45 mg/dL >40 [facility] Comment on above: National Cholesterol Education Program (NCEP) guidelines:<40 mg/dL: Low HDL-cholesterol (major risk factor for CHD)>= 60 mg/dL: High HDL-cholesterol (negative risk factor for CHD)HDL-cholesterol is affected by a number of factors, e.g. smoking, exercise, hormones, sex and age. Serum or plasma cholesterol measurement (mass/volume)Ordered By: Roman Rubio on 01-23-2025 Cholesterol [Mass/Vol] 212 mg/dL High <201 [facility] Comment on above: Cholesterol level, D esirable <200 mg/dLBorderline high cholesterol 200-239 mg/dLHigh cholesterol >=240 mg/dLRecommendations of the NCEP Adult Treatment Panel for the following risk-cutoff thresholds for the [place] population. Serum or plasma creatine kin ase activityOrdered By: Roman Rubio on 01-23-2025 CK [Catalytic activity/Vol] 68 U/L 24-195 [facility] Serum or plasma urea nitroge n measurement (mass/volume)Ordered By: Roman Rubio on 01-23-2025 Urea nitrogen [Mass/Vol] 8 mg/dL 4-19 [facility] Sodium levelOrdered By: Roman Rubio on 01-23-2025 Sodium [Moles/Vol] 138 mmol/L 133-145 [facility] Total proteinOrdered By: Marcelle Rubio on 01-23-2025 Protein [Mass/Vol] 8.0 g/dL 5.9-8.4 [facility] Triglycerides measurementOrd ered By: Roman Rubio on 01-23-2025 Triglyceride [Mass/Vol] 111 mg/dL <199 [facility] Comment on above: The drugs N-Acetylcy steine and Metamizole may falsely depress this assay. Normal range: <150 mg/dLBorderline High: 150-199 mg/dLHigh: 200-499 mg/dLVery High: >500 mg/dL White blood cell (WBC) count Ordered By: Roman Rubio on 01-23-2025 WBC (Bld) [#/Vol] 5.6 10*3/uL 4.4-11.0 [facility] 36on 01-11-2025 36 Patient scheduled fr o [facility] hospital follow up on 02/03 in [facility] location with Dr. Altamirano. [facility] 36 Please arrange hosp fu for this patient with any available [facility] physician at preferred location. [facility] 30on 01-09-2025 30 Normal [facility] 30 Normal [facility] [id number] 01-09-2025 [id number] Normal [facility] [id number] 01-09-2025 [id number] SW met with pt. Confirmed mom is working on getting an apt with Dr Roman for PCP. No other needs at this time. [facility] [phone] Discussed PT recommendations, with patient and family. Agreed to home care. youth liaison officer aware. [facility] [phone] Normal [facility] 36on 01-09-2025 36 Normal [facility] CBC W Auto Differential pane l (Bld)on 01-09-2025 Basophils (Bld) [#/Vol] 0.1 10*3/uL 0.0 - 0.2 10*3/uL [facility] Basophils/100 WBC (Bld) 0.7 % 0.0 - 2.0 % [facility] Eosinophils (Bld) [#/Vol] 0.1 10*3/uL 0.0 - 0.5 10*3/uL [facility] Eosinophils/100 WBC (Bld) 1.3 % 0.0 - 6.0 % [facility] Erythrocyte distribution width (RBC) [Ratio] 12.5 % 11.5 - 15.0 % [facility] Hematocrit (Bld) [Volume fraction] 36 % Low 40.0 - 52.0 % [facility] Hemoglobin (Bld) [Mass/Vol] 12.4 g/dL Low 13.0 - 18.0 g/dL [facility] Immature granulocytes (Bld) [#/Vol] 0.1 10*3/uL High NINF - 0.1 10*3/uL [facility] [employer] Immature granulocytes/100 WBC (Bld) 1.7 % 0.0 - 2.0 % [facility] Interpretation and review of laboratory results Abnormal [facility] Lymphocytes (Bld) [#/Vol] 2 10*3/uL 1.0 - 4.3 10*3/uL [facility] Lymphocytes/100 WBC (Bld) 28.3 % 15.0 - 45.0 % [facility] MCH (RBC) [Entitic mass] 30 pg 26.0 - 34.0 pg [facility] MCHC (RBC) [Mass/Vol] 34.4 % 30.5 - 36.0 % [facility] MCV (RBC) [Entitic vol] 87.2 fL 77.0 - 99.0 fL [facility] Monocytes (Bld) [#/Vol] 0.7 10*3/uL 0.0 - 0.9 10*3/uL [facility] Monocytes/100 WBC (Bld) 10.2 % 5.0 - 13.0 % [facility] Neutrophils (Bld) [#/Vol] 4.1 10*3/uL 1.8 - 7.5 10*3/uL [facility] Neutrophils/100 WBC (Bld) 57.8 % 38.0 - 82.0 % [facility] Nucleated RBC/100 WBC (Bld) [Ratio] 0 % [facility] Platelet mean volume (Bld) [Entitic vol] 9.9 fL 9.0 - 12.7 fL [facility] Platelets (Bld) [#/Vol] 577 10*3/uL High 140 - 440 10*3/uL [facility] RBC (Bld) [#/Vol] 4.13 10*6/uL Low 4.40 - 5.9 0 10*6/uL [facility] WBC (Bld) [#/Vol] 7.1 10*3/uL 3.6 - 10.7 10*3/uL [facility] CBC WITH AUTO DIFFERENTIALon 01-09-2025 Basophils (Bld) [#/Vol] 0.1 10*3/uL Normal 0.0-0.2 [facility] Comment on above: Performed By: #### L [id number] ####Director Consumer: SHAHLA WARREN ([phone])[address] Basophils/100 WBC (Bld) 0.7 % Normal 0.0-2.0 [facility] Comment on above: Performed By: #### L [id number] ####Director Consumer: SHHALA [phone])[facility])[address] [place] [address] Eosinophils (Bld) [#/Vol] 0.1 10*3/uL Normal 0.0-0.5 [facility] Comment on above: Performed By: #### L [id number] ####Director Consumer: SHAHLA WARREN ([phone])[facility])[address] [place] [address] Eosinophils/100 WBC (Bld) 1.3 % Normal 0.0-6.0 [facility] Comment on above: Performed By: #### L [id number] ####Director Consumer: SHAHLA WARREN ([phone])[address] Erythrocyte distribution width (RBC) [Ratio] 12.5 % Normal 11.5-15.0 [facility] Comment on above: Performed By: #### L [id number] ####Director Consumer: SHAHLA WARREN ([phone])[facility])[address] [place] [address] Hematocrit (Bld) [Volume fraction] 36.0 % Low 40.0-52.0 [facility] Comment on above: Performed By: #### L [id number] ####Director Consumer: SHAHLA WARREN ([phone])[address] Hemoglobin (Bld) [Mass/Vol] 12.4 g/dL Low 13.0-18.0 [facility] Comment on above: Performed By: #### L [id number] ####Director Consumer: SHAHLA WARREN ([phone])[facility])[address] [place] [address] IMMATURE GRANS % 1.7 % Normal 0.0-2.0 [facility] Comment on above: Performed By: #### L [id number] ####Director Consumer: SHAHLA WARREN ([phone])[address] IMMATURE GRANS ABSOLUTE 0.1 10*3/uL High <0.1 [facility] Comment on above: Performed By: #### L [id number] ####Director Consumer: SHAHLA WARREN ([phone])[facility])[address] [place] [address] Lymphocytes (Bld) [#/Vol] 2.0 10*3/uL Normal 1.0-4.3 [facility] Comment on above: Performed By: #### L [id number] ####Director Consumer: SHAHLA WARREN ([phone])[facility])[address] [place] [address] Lymphocytes/100 WBC (Bld) 28.3 % Normal 15.0-45.0 [facility] Comment on above: Performed By: #### L [id number] ####Director Consumer: SHAHLA WARREN ([phone])[facility])[address] [place] [address] MCH (RBC) [Entitic mass] 30.0 pg Normal 26.0-34.0 [facility] Comment on above: Performed By: #### L [id number] ####Director Consumer: SHAHLA WARREN ([phone])[facility])[address] [place] [address] MCHC 34.4 % Normal 30.5-36.0 [facility] Comment on above: Performed By: #### L [id number] ####Director Consumer: SHAHLA WARREN ([phone])[facility])[address] [place] [address] MCV (RBC) [Entitic vol] 87.2 fL Normal 77.0-99.0 [facility] Comment on above: Performed By: #### L [id number] ####Director Consumer: SHAHLA WARREN ([phone])[facility])[address] [place] [address] Monocytes (Bld) [#/Vol] 0.7 10*3/uL Normal 0.0-0.9 [facility] Comment on above: Performed By: #### L [id number] ####Director Consumer: SHAHLA WARREN ([phone])[facility] ([facility])[address] [place] [address] Monocytes/100 WBC (Bld) 10.2 % Normal 5.0-13.0 [facility] Comment on above: Performed By: #### L [id number] ####Director Consumer: SHAHLA WARREN ([phone])[facility] ([facility])[address] [place] [address] NEUTROPHILS ABSOLUTE 4.1 10*3/uL Normal 1.8-7.5 [facility] Comment on above: Performed By: #### L [id number] ####Director Consumer: SHAHLA WARREN ([phone])[facility] ([facility])[address] [place] [address] Neutrophils/100 WBC (Bld) 57.8 % Normal 38.0-82.0 [facility] Comment on above: Performed By: #### L [id number] ####Director Consumer: SHAHLA WARREN ([phone])[facility] ([facility])[address] [place] [address] NRBC 0.0 /100 WBCs Normal 0.0-2.0 [facility] Comment on above: Performed By: #### L [id number] ####Director Consumer: SHAHLA WARREN ([phone])[facility] ([facility])[address] [place] [address] Platelet mean volume (Bld) [Entitic vol] 9.9 fL Normal 9.0-12.7 [facility] Comment on above: Performed By: #### L [id number] ####Director Consumer: SHAHLA WARREN ([phone])[facility] ([facility])[address] [place] [address] [place] Platelets (Bld) [#/Vol] 577 10*3/uL High 140-440 [facility] Comment on above: Performed By: #### L [id number] ####Director Consumer: SHAHLA WARREN ([phone])[facility])[address] [place] [address] RBC (Bld) [#/Vol] 4.13 10*6/uL Low 4.40-5.90 [facility] Comment on above: Performed By: #### L [id number] ####Director Consumer: SHALHA WARREN ([phone])[facility])[address] [place] [address] WBC (Bld) [#/Vol] 7.1 10*3/uL Normal 3.6-10.7 [facility] Comment on above: Performed By: #### L [id number] ####Director Consumer: SHAHLA WARREN ([phone])[facility])[address] [place] [address] COMPREHENSIVE METABOLIC PANE Clifford 01-09-2025 Albumin [Mass/Vol] 2.9 g/dL Low 3.5-5.0 [facility] Comment on above: Performed By: #### L [id number] ####Director Consumer: SHAHLA WARREN ([phone])[facility] ([facility])[address] [place] [address] ALP [Catalytic activity/Vol] 107 U/L Normal 40-150 [facility] Comment on above: Performed By: #### L [id number] ####Director Consumer: SHAHLA WARREN ([phone])[facility])[address] [place] [address] ALT [Catalytic activity/Vol] 260 U/L High <40 [facility] Comment on above: Performed By: #### L [id number] ####Director Consumer: SHAHLA WARREN ([phone])[facility] ([facility])[address] [place] [address] Anion gap [Moles/Vol] 11 mmol/L Normal 3-13 [facility] Comment on above: Performed By: #### L [id number] ####Director Consumer: SHAHLA WARREN ([phone])[facility] ([facility])[address] [place] [address] AST [Catalytic activity/Vol] 78 U/L High <34 [facility] Comment on above: Performed By: #### L [id number] ####Director Consumer: SHAHLA WARREN ([phone])[facility])[address] [place] [address] Bilirubin [Mass/Vol] 0.4 mg/dL Normal <1.2 [facility] Comment on above: Performed By: #### L [id number] ####Director Consumer: SHAHLA WARREN ([phone])[facility])[address] [place] [address] Calcium [Mass/Vol] 9.4 mg/dL Normal 8.4-10.2 [facility] Comment on above: Performed By: #### L [id number] ####Director Consumer: SHAHLA WARREN ([phone])[facility])[address] [place] [address] Chloride [Moles/Vol] 105 mmol/L Normal 98-107 [facility] Comment on above: Performed By: #### L [id number] ####Director Consumer: SHAHLA WARREN ([phone])[facility] ([facility])[address] [place] [address] CO2 [Moles/Vol] 22 mmol/L Normal 22-29 [facility] Comment on above: Performed By: #### L [id number] ####Director Consumer: SHAHLA WARREN ([phone])[facility])[address] [place] [address] Creatinine [Mass/Vol] 0.96 mg/dL Normal 0.72-1.25 [facility] Comment on above: Performed By: #### L [id number] ####Director Consumer: SHAHLA WARREN ([phone])[facility])[address] [place] [address] GLOMERULAR FILTRATION RATE ML/MIN/1.73 SQ M.PREDICTED >90.0 Normal >60.0 [facility] Comment on above: Result Comment: Calc ulation based on the Chronic Kidney Disease Epidemiology Collaboration (CKD-EPI) equation refit without adjustment for race Performed By: #### L [id number] ####Director Consumer: SHAHLA WARREN ([phone])[facility] ([facility])[address] [place] [address] Glucose [Mass/Vol] 96 mg/dL Normal 74-100 [facility] Comment on above: Performed By: #### L [id number] ####Director Consumer: SHAHLA WARREN ([phone])[facility] ([facility])[address] [place] [address] Potassium [Moles/Vol] 3.9 mmol/L Normal 3.5-5.1 [facility] Comment on above: Result Comment: [facility] potassium values may be up to 0.5 mmol/L lower than serum values. Performed By: #### L [id number] ####Director Consumer: SHAHLA WARREN ([phone])[facility] ([facility])[address] [place] [address] Protein [Mass/Vol] 7.9 g/dL Normal 6.4-8.3 [facility] Comment on above: Performed By: #### L [id number] ####Director Consumer: SHAHLA WARREN ([phone])[facility] ([facility])[address] [place] [address] Sodium [Moles/Vol] 138 mmol/L Normal 136-145 [facility] Comment on above: Performed By: #### L [id number] ####Director Consumer: SHAHLA WARREN ([phone])[facility])[address] [place] [address] [place] Urea nitrogen [Mass/Vol] 10 mg/dL Normal 8-21 [facility] Comment on above: Performed By: #### L [id number] ####Director Consumer: SHAHLA WARREN ([phone])[facility] ([facility])[address] [place] [address] metabolic 1998 panelon 01-09-2025 Albumin [Mass/Vol] 2.9 g/dL Low 3.5 - 5.0 g/dL [facility] ALP [Catalytic activity/Vol] 107 U/L 40 - 150 U/L [facility] ALT [Catalytic activity/Vol] 260 U/L High NINF - 40 U/L [facility] Anion gap [Moles/Vol] 11 mmol/L 3 - 13 mmol/L [facility] AST [Catalytic activity/Vol] 78 U/L High [facility] - 34 U/L [facility] Bilirubin [Mass/Vol] 0.4 mg/dL NINF - 1.2 mg/dL [facility] Calcium [Mass/Vol] 9.4 mg/dL 8.4 - 10. 2 mg/dL [facility] Chloride [Moles/Vol] 105 mmol/L 98 - 10 7 mmol/L [facility] CO2 [Moles/Vol] 22 mmol/L 22 - 29 mmol/L [facility] Creatinine [Mass/Vol] 0.96 mg/dL 0.72 - 1.25 mg/dL [facility] GFR/1.73 sq M.predicted (S/P/Bld) [Vol rate/Area] - PINF [facility] Glucose [Mass/Vol] 96 mg/dL 74 - 100 mg/dL [facility] Interpretation and review of laboratory results Abnormal [facility] Potassium [Moles/Vol] 3.9 mmol/L 3.5 - 5.1 mmol/L [facility] Protein [Mass/Vol] 7.9 g/dL 6.4 - 8.3 g/dL [facility] Sodium [Moles/Vol] 138 mmol/L 136 - 145 mmol/L [facility] Urea nitrogen [Mass/Vol] 10 mg/dL 8 - 21 mg/dL [facility] - Chemistry and C hemistry - challengeon 01-09-2025 Glucose [Mass/Vol] 98 mg/dL 70 - 100 mg/dL [facility] Glucose [Mass/Vol] 97 mg/dL 70 - 100 mg/dL [facility] No Panel Informationon 01-09 [facility] RADIOLOGY SYSTEM [facility] EMERGENC[facility]PART[facility] RADIOLOGY SYSTEM [facility] Interpretation and review of laboratory results Normal [facility] Radiology Study observation (narrative) [facility] Interpretation and review of laboratory results Normal [facility] Nursing Noteon 01-09-2025 Nursing Note AVS instructions given. IV removed. Meds to beds delivered. Patient and family have no further questions or concerns at this time. Patient discharged to home via family. Normal [facility] Progress Noteon 01-09-2025 Progress Note Normal [facility] Progress Note Normal [facility] US LIVER DOPPLERon US LIVER DOPPLER Normal [facility] 30on 01-08-2025 30 Normal [facility] CBC W Auto Differential pane l (Bld)on 01-08-2025 Basophils (Bld) [#/Vol] 0.1 10*3/uL 0.0 - 0.2 10*3/uL [facility] Basophils/100 WBC (Bld) 0.6 % 0.0 - 2.0 % [facility] Eosinophils (Bld) [#/Vol] 0.1 10*3/uL 0.0 - 0.5 10*3/uL [facility] Eosinophils/100 WBC (Bld) 1.4 % 0.0 - 6.0 % [facility] Erythrocyte distribution width (RBC) [Ratio] 12.8 % 11.5 - 15.0 % [facility] Hematocrit (Bld) [Volume fraction] 32.8 % Low 40.0 - 52.0 % [facility] Hemoglobin (Bld) [Mass/Vol] 11.4 g/dL Low 13.0 - 18.0 g/dL [facility] Immature granulocytes (Bld) [#/Vol] 0.1 10*3/uL High NINF - 0.1 10*3/uL [facility] Immature granulocytes/100 WBC (Bld) 1.4 % 0.0 - 2.0 % [facility] Interpretation and review of laboratory results Abnormal [facility] Lymphocytes (Bld) [#/Vol] 1.9 10*3/uL 1.0 - 4.3 10*3/uL [facility] Lymphocytes/100 WBC (Bld) 23.5 % 15.0 - 45.0 % [facility] MCH (RBC) [Entitic mass] 30 pg 26.0 - 34.0 pg [facility] MCHC (RBC) [Mass/Vol] 34.8 % 30.5 - 36.0 % [facility] MCV (RBC) [Entitic vol] 86.3 fL 77.0 - 99.0 fL [facility] Monocytes (Bld) [#/Vol] 0.7 10*3/uL 0.0 - 0.9 10*3/uL [facility] Monocytes/100 WBC (Bld) 8.9 % 5.0 - 13.0 % [facility] Neutrophils (Bld) [#/Vol] 5.1 10*3/uL 1.8 - 7.5 10*3/uL [facility] Neutrophils/100 WBC (Bld) 64.2 % 38.0 - 82.0 % [facility] Nucleated RBC/100 WBC (Bld) [Ratio] 0 % [facility] Platelet mean volume (Bld) [Entitic vol] 10 fL 9.0 - 12.7 fL [facility] Platelets (Bld) [#/Vol] 490 10*3/uL High 140 - 440 10*3/uL [facility] RBC (Bld) [#/Vol] 3.8 10*6/uL Low 4.40 - 5.9 0 10*6/uL [facility] WBC (Bld) [#/Vol] 8 10*3/uL 3.6 - 10.7 10*3/uL [facility] CBC WITH AUTO DIFFERENTIALon 01-08-2025 Basophils (Bld) [#/Vol] 0.1 10*3/uL Normal 0.0-0.2 [facility] Comment on above: Performed By: #### L [id number] ####Director Consumer: SHAHLA WARREN ([phone])[address] Basophils/100 WBC (Bld) 0.6 % Normal 0.0-2.0 [facility] Comment on above: Performed By: #### L [id number] ####Director Consumer: SHAHLA WARREN ([phone])[facility])[address] [place] [address] Eosinophils (Bld) [#/Vol] 0.1 10*3/uL Normal 0.0-0.5 [facility] Comment on above: Performed By: #### L [id number] ####Director Consumer: SHAHLA WARREN ([phone])[facility])[address] [place] [address] Eosinophils/100 WBC (Bld) 1.4 % Normal 0.0-6.0 [facility] Comment on above: Performed By: #### L [id number] ####Director Consumer: SHAHLA WARREN ([phone])[address] Erythrocyte distribution width (RBC) [Ratio] 12.8 % Normal 11.5-15.0 [facility] Comment on above: Performed By: #### L [id number] ####Director Consumer: SHAHLA WARREN ([phone])[address] Hematocrit (Bld) [Volume fraction] 32.8 % Low 40.0-52.0 [facility] Comment on above: Performed By: #### L [id number] ####Director Consumer: SHAHLA WARREN ([phone])[address] Hemoglobin (Bld) [Mass/Vol] 11.4 g/dL Low 13.0-18.0 [facility] Comment on above: Performed By: #### L [id number] ####Director Consumer: SHAHLA WARREN ([phone])[address] IMMATURE GRANS % 1.4 % Normal 0.0-2.0 [facility] Comment on above: Performed By: #### L [id number] ####Director Consumer: SHAHLA WARREN ([phone])[address] IMMATURE GRANS ABSOLUTE 0.1 10*3/uL High <0.1 [facility] Comment on above: Performed By: #### L [id number] ####Director Consumer: SHAHLA WARREN ([phone])[address] Lymphocytes (Bld) [#/Vol] 1.9 10*3/uL Normal 1.0-4.3 [facility] Comment on above: Performed By: #### L [id number] ####Director Consumer: SHAHLA WARREN ([phone])[facility])[address] [place] [address] Lymphocytes/100 WBC (Bld) 23.5 % Normal 15.0-45.0 [facility] Comment on above: Performed By: #### L [id number] ####Director Consumer: SHAHLA WARREN ([phone])[facility])[address] [place] [address] MCH (RBC) [Entitic mass] 30.0 pg Normal 26.0-34.0 [facility] Comment on above: Performed By: #### L [id number] ####Director Consumer: SHAHLA WARREN ([phone])[facility])[address] [place] [address] MCHC 34.8 % Normal 30.5-36.0 [facility] Comment on above: Performed By: #### L [id number] ####Director Consumer: SHAHLA WARREN ([phone])[facility])[address] [place] [address] MCV (RBC) [Entitic vol] 86.3 fL Normal 77.0-99.0 [facility] Comment on above: Performed By: #### L [id number] ####Director Consumer: SHAHLA WARREN ([phone])[facility])[address] [place] [address] Monocytes (Bld) [#/Vol] 0.7 10*3/uL Normal 0.0-0.9 [facility] Comment on above: Performed By: #### L [id number] ####Director Consumer: SHAHLA WARREN ([phone])[facility])[address] [place] [address] Monocytes/100 WBC (Bld) 8.9 % Normal 5.0-13.0 [facility] Comment on above: Performed By: #### L [id number] ####Director Consumer: SHAHLA WARREN ([phone])[facility])[address] [place] [address] NEUTROPHILS ABSOLUTE 5.1 10*3/uL Normal 1.8-7.5 [facility] Comment on above: Performed By: #### L [id number] ####Director Consumer: SHAHLA WARREN ([phone])[facility] ([facility])[address] [place] [address] Neutrophils/100 WBC (Bld) 64.2 % Normal 38.0-82.0 [facility] Comment on above: Performed By: #### L [id number] ####Director Consumer: SHAHLA WARREN ([phone])[facility] ([facility])[address] [place] [address] NRBC 0.0 /100 WBCs Normal 0.0-2.0 [facility] Comment on above: Performed By: #### L [id number] ####Director Consumer: SHAHLA WARREN ([phone])[facility] ([facility])[address] [place] [address] Platelet mean volume (Bld) [Entitic vol] 10.0 fL Normal 9.0-12.7 [facility] Comment on above: Performed By: #### L [id number] ####Director Consumer: SHAHLA WARREN ([phone])[facility] ([facility])[address] [place] [address] [place] Platelets (Bld) [#/Vol] 490 10*3/uL High 140-440 [facility] Comment on above: Performed By: #### L [id number] ####Director Consumer: SHAHLA WARREN ([phone])[facility] ([facility])[address] [place] [address] [place] RBC (Bld) [#/Vol] 3.80 10*6/uL Low 4.40-5.90 [facility] Comment on above: Performed By: #### L [id number] ####Director Consumer: SHAHLA WARREN ([phone])[facility] ([facility])[address] [place] [address] [place] WBC (Bld) [#/Vol] 8.0 10*3/uL Normal 3.6-10.7 [facility] Comment on above: Performed By: #### L [id number] ####Director Consumer: SHAHLA WARREN ([phone])[facility] ([facility])[address] [place] [address] COMPREHENSIVE METABOLIC PANE Clifford 01-08-2025 Albumin [Mass/Vol] 2.8 g/dL Low 3.5-5.0 [facility] Comment on above: Performed By: #### L [id number] ####Director Consumer: SHAHLA WARREN ([phone])[facility] ([facility])[address] [place] [address] ALP [Catalytic activity/Vol] 108 U/L Normal 40-150 [facility] Comment on above: Performed By: #### L [id number] ####Director Consumer: SHAHLA AWRREN ([phone])[facility] ([facility])[address] [place] [address] ALT [Catalytic activity/Vol] 288 U/L High <40 [facility] Comment on above: Performed By: #### L [id number] ####Director Consumer: SHAHLA WARREN ([phone])[facility] ([facility])[address] [place] [address] Anion gap [Moles/Vol] 10 mmol/L Normal 3-13 [facility] Comment on above: Performed By: #### L [id number] ####Director Consumer: SHAHLA WARREN ([phone])[facility] ([facility])[address] [place] [address] AST [Catalytic activity/Vol] 105 U/L High <34 [facility] Comment on above: Result Comment: TCPo tential interference from hemolysis Performed By: #### L [id number] ####Director Consumer: SHAHLA WARREN ([phone])[facility] ([facility])[address] [place] [address] Bilirubin [Mass/Vol] 0.6 mg/dL Normal <1.2 [facility] Comment on above: Performed By: #### L [id number] ####Director Consumer: SHAHLA WARREN ([phone])[facility] ([facility])[address] [place] [address] Calcium [Mass/Vol] 9.0 mg/dL Normal 8.4-10.2 [facility] Comment on above: Performed By: #### L [id number] ####Director Consumer: SHAHLA WARREN ([phone])[facility] [place] [address] Chloride [Moles/Vol] 108 mmol/L High 98-107 [facility] Comment on above: Performed By: #### L [id number] ####Director Consumer: SHAHLA WARREN ([phone])[facility] [place] [address] CO2 [Moles/Vol] 19 mmol/L Low 22-29 [facility] Comment on above: Performed By: #### L [id number] ####Director Consumer: SHAHLA WARREN ([phone])[facility] [place] [address] Creatinine [Mass/Vol] 0.76 mg/dL Normal 0.72-1.25 [facility] Comment on above: Performed By: #### L [id number] ####Director Consumer: SHAHLA WARREN ([phone])[facility] ([facility])[address] [place] [address] GLOMERULAR FILTRATION RATE ML/MIN/1.73 SQ M.PREDICTED >90.0 Normal >60.0 [facility] Comment on above: Result Comment: Calc ulation based on the Chronic Kidney Disease Epidemiology Collaboration (CKD-EPI) equation refit without adjustment for race Performed By: #### L [id number] ####Director Consumer: SHAHLA WARREN ([phone])[facility] ([facility])[address] [place] [address] [place] Glucose [Mass/Vol] 91 mg/dL Normal 74-100 [facility] Comment on above: Performed By: #### L [id number] ####Director Consumer: SHAHLA WARREN ([phone])[facility] ([facility])[address] [place] [address] [place] Potassium [Moles/Vol] 4.2 mmol/L Normal 3.5-5.1 [facility] Comment on above: Result Comment: [facility] potassium values may be up to 0.5 mmol/L lower than serum values. Performed By: #### L [id number] ####Director Consumer: SHAHLA WARREN ([phone])[facility] ([facility])[address] [place] [address] Protein [Mass/Vol] 7.6 g/dL Normal 6.4-8.3 [facility] Comment on above: Performed By: #### L [id number] ####Director Consumer: SHAHLA WARREN ([phone])[facility] ([facility])[address] [place] [address] Sodium [Moles/Vol] 137 mmol/L Normal 136-145 [facility] Comment on above: Performed By: #### L [id number] ####Director Consumer: SHAHLA WARREN ([phone])[facility] ([facility])[address] [place] [address] Urea nitrogen [Mass/Vol] 11 mg/dL Normal 8-21 [facility] Comment on above: Performed By: #### L [id number] ####Director Consumer: SHAHLA WARREN ([phone])[facility])[address] [place] [address] Comprehensive metabolic 1998 panelon 01-08-2025 Albumin [Mass/Vol] 2.8 g/dL Low 3.5 - 5.0 g/dL [facility] ALP [Catalytic activity/Vol] 108 U/L 40 - 150 U/L [facility] ALT [Catalytic activity/Vol] 288 U/L High NINF - 40 U/L [facility] Anion gap [Moles/Vol] 10 mmol/L 3 - 13 mmol/L [facility] AST [Catalytic activity/Vol] 105 U/L High NINF - 34 U/L [facility] Bilirubin [Mass/Vol] 0.6 mg/dL NINF - 1.2 mg/dL [facility] Calcium [Mass/Vol] 9 mg/dL 8.4 - 10. 2 mg/dL [facility] Chloride [Moles/Vol] 108 mmol/L High 98 - 10 7 mmol/L [facility] CO2 [Moles/Vol] 19 mmol/L Low 22 - 29 mmol/L [facility] Creatinine [Mass/Vol] 0.76 mg/dL 0.72 - 1.25 mg/dL [facility] GFR/1.73 sq M.predicted (S/P/Bld) [Vol rate/Area] - PINF [facility] Glucose [Mass/Vol] 91 mg/dL 74 - 100 mg/dL [facility] Interpretation and review of laboratory results Abnormal [facility] Potassium [Moles/Vol] 4.2 mmol/L 3.5 - 5.1 mmol/L [facility] Protein [Mass/Vol] 7.6 g/dL 6.4 - 8.3 g/dL [facility] Sodium [Moles/Vol] 137 mmol/L 136 - 145 mmol/L [facility] Urea nitrogen [Mass/Vol] 11 mg/dL 8 - 21 mg/dL [facility] Consulton 01-08-2025 Consult Normal [facility] Progress Noteon 01-08-2025 Progress Note Normal [facility] [id number] 01-07-2025 [id number] Normal [facility] BETA HYDROXYBUTYRATEon 01-07 BETA HYDROXYBUTYRATE 0.6 mg/dL Normal <=2.8 [facility] Comment on above: Performed By: #### L [id number], [id number] ####Director Consumer: SHAHLA WARREN ([phone])[address] CBC W Auto Differential pane l (Bld)on 01-07-2025 Basophils (Bld) [#/Vol] 0.1 10*3/uL 0.0 - 0.2 10*3/uL [facility] Basophils/100 WBC (Bld) 0.6 % 0.0 - 2.0 % [facility] Eosinophils (Bld) [#/Vol] 0.1 10*3/uL 0.0 - 0.5 10*3/uL [facility] Eosinophils/100 WBC (Bld) 1.3 % 0.0 - 6.0 % [facility] Erythrocyte distribution width (RBC) [Ratio] 13.2 % 11.5 - 15.0 % [facility] Hematocrit (Bld) [Volume fraction] 37.5 % Low 40.0 - 52.0 % [facility] Hemoglobin (Bld) [Mass/Vol] 12.4 g/dL Low 13.0 - 18.0 g/dL [facility] Immature granulocytes (Bld) [#/Vol] 0.2 10*3/uL High NINF - 0.1 10*3/uL [facility] Health Immature granulocytes/100 WBC (Bld) 1.8 % 0.0 - 2.0 % [facility] Interpretation and review of laboratory results Abnormal [facility] Lymphocytes (Bld) [#/Vol] 1.8 10*3/uL 1.0 - 4.3 10*3/uL [facility] Lymphocytes/100 WBC (Bld) 19.1 % 15.0 - 45.0 % [facility] MCH (RBC) [Entitic mass] 29.7 pg 26.0 - 34.0 pg [facility] MCHC (RBC) [Mass/Vol] 33.1 % 30.5 - 36.0 % [facility] MCV (RBC) [Entitic vol] 89.7 fL 77.0 - 99.0 fL [facility] Monocytes (Bld) [#/Vol] 0.7 10*3/uL 0.0 - 0.9 10*3/uL [facility] Monocytes/100 WBC (Bld) 7 % 5.0 - 13.0 % [facility] Neutrophils (Bld) [#/Vol] 6.7 10*3/uL 1.8 - 7.5 10*3/uL [facility] Neutrophils/100 WBC (Bld) 70.2 % 38.0 - 82.0 % [facility] Nucleated RBC/100 WBC (Bld) [Ratio] 0 % [facility] Platelet mean volume (Bld) [Entitic vol] 10 fL 9.0 - 12.7 fL [facility] Platelets (Bld) [#/Vol] 474 10*3/uL High 140 - 440 10*3/uL [facility] RBC (Bld) [#/Vol] 4.18 10*6/uL Low 4.40 - 5.9 0 10*6/uL [facility] WBC (Bld) [#/Vol] 9.6 10*3/uL 3.6 - 10.7 10*3/uL [facility] CBC WITH AUTO DIFFERENTIALon 05-17-2025 Basophils (Bld) [#/Vol] 0.1 10*3/uL Normal 0.0-0.2 [facility] Comment on above: Performed By: #### L [id number] ####Director Consumer: SHAHLA WARREN ([phone])[facility])[address] [place] [address] Basophils/100 WBC (Bld) 0.6 % Normal 0.0-2.0 [facility] Comment on above: Performed By: #### L [id number] ####Director Consumer: SHAHLA WARREN ([phone])[facility])[address] [place] [address] Eosinophils (Bld) [#/Vol] 0.1 10*3/uL Normal 0.0-0.5 [facility] Comment on above: Performed By: #### L [id number] ####Director Consumer: SHAHLA WARREN ([phone])[facility])[address] [place] [address] Eosinophils/100 WBC (Bld) 1.3 % Normal 0.0-6.0 [facility] Comment on above: Performed By: #### L [id number] ####Director Consumer: SHAHLA WARREN ([phone])[facility])[address] [place] [address] Erythrocyte distribution width (RBC) [Ratio] 13.2 % Normal 11.5-15.0 [facility] Comment on above: Performed By: #### L [id number] ####Director Consumer: SHAHLA WARREN ([phone])[facility])[address] [place] [address] Hematocrit (Bld) [Volume fraction] 37.5 % Low 40.0-52.0 [facility] Comment on above: Performed By: #### L [id number] ####Director Consumer: SHAHLA WARREN ([phone])[facility])[address] [place] [address] Hemoglobin (Bld) [Mass/Vol] 12.4 g/dL Low 13.0-18.0 [facility] Comment on above: Performed By: #### L [id number] ####Director Consumer: SHAHLA WARREN ([phone])[facility])[address] [place] [address] IMMATURE GRANS % 1.8 % Normal 0.0-2.0 [facility] Comment on above: Performed By: #### L [id number] ####Director Consumer: SHAHLA WARREN ([phone])[facility])[address] [place] [address] IMMATURE GRANS ABSOLUTE 0.2 10*3/uL High <0.1 [facility] Comment on above: Performed By: #### L [id number] ####Director Consumer: SHAHLA WARREN ([phone])[address] Lymphocytes (Bld) [#/Vol] 1.8 10*3/uL Normal 1.0-4.3 [facility] Comment on above: Performed By: #### L [id number] ####Director Consumer: SHAHLA WARREN ([phone])[address] Lymphocytes/100 WBC (Bld) 19.1 % Normal 15.0-45.0 [facility] Comment on above: Performed By: #### L [id number] ####Director Consumer: SHAHLA WARREN ([phone])[facility])[address] [place] [address] MCH (RBC) [Entitic mass] 29.7 pg Normal 26.0-34.0 [facility] Comment on above: Performed By: #### L [id number] ####Director Consumer: SHAHLA WARREN ([phone])[address] MCHC 33.1 % Normal 30.5-36.0 [facility] Comment on above: Performed By: #### L [id number] ####Director Consumer: SHAHLA WARREN ([phone])[facility])[address] [place] [address] MCV (RBC) [Entitic vol] 89.7 fL Normal 77.0-99.0 [facility] Comment on above: Performed By: #### L [id number] ####Director Consumer: SHAHLA WARREN ([phone])[facility] ([facility])[address] [place] [address] Monocytes (Bld) [#/Vol] 0.7 10*3/uL Normal 0.0-0.9 [facility] Comment on above: Performed By: #### L [id number] ####Director Consumer: SHAHLA WARREN ([phone])[facility])[address] [place] [address] Monocytes/100 WBC (Bld) 7.0 % Normal 5.0-13.0 [facility] Comment on above: Performed By: #### L [id number] ####Director Consumer: SHAHLA WARREN ([phone])[facility])[address] [place] [address] NEUTROPHILS ABSOLUTE 6.7 10*3/uL Normal 1.8-7.5 [facility] Comment on above: Performed By: #### L [id number] ####Director Consumer: SHAHLA WARREN ([phone])[facility] ([facility])[address] [place] [address] [place] Neutrophils/100 WBC (Bld) 70.2 % Normal 38.0-82.0 [facility] Comment on above: Performed By: #### L [id number] ####Director Consumer: SHAHLA WARREN ([phone])[facility] ([facility])[address] [place] [address] [place] NRBC 0.0 /100 WBCs Normal 0.0-2.0 [facility] Comment on above: Performed By: #### L [id number] ####Director Consumer: SHAHLA WARREN ([phone])[facility])[address] [place] [address] Platelet mean volume (Bld) [Entitic vol] 10.0 fL Normal 9.0-12.7 [facility] Comment on above: Performed By: #### L [id number] ####Director Consumer: SHAHLA WARREN ([phone])[facility])[address] [place] [address] Platelets (Bld) [#/Vol] 474 10*3/uL High 140-440 [facility] Comment on above: Performed By: #### L [id number] ####Director Consumer: SHAHLA WARREN ([phone])[facility])[address] [place] [address] RBC (Bld) [#/Vol] 4.18 10*6/uL Low 4.40-5.90 [facility] Comment on above: Performed By: #### L [id number] ####Director Consumer: SHAHLA WARREN ([phone])[facility])[address] [place] [address] WBC (Bld) [#/Vol] 9.6 10*3/uL Normal 3.6-10.7 [facility] Comment on above: Performed By: #### L [id number] ####Director Consumer: SHAHLA WARREN ([phone])[facility] ([facility])[address] [place] [address] COMPREHENSIVE METABOLIC PANE Clifford 01-07-2025 Albumin [Mass/Vol] 2.8 g/dL Low 3.5-5.0 [facility] Comment on above: Performed By: #### L [id number] ####Director Consumer: SHAHLA WARREN ([phone])[facility])[address] [place] [address] ALP [Catalytic activity/Vol] 114 U/L Normal 40-150 [facility] Comment on above: Performed By: #### L [id number] ####Director Consumer: SHAHLA WARREN ([phone])[facility])[address] [place] [address] [place] ALT [Catalytic activity/Vol] 335 U/L High <40 [facility] Comment on above: Performed By: #### L [id number] ####Director Consumer: SHAHLA WARREN ([phone])[facility])[address] [place] [address] Anion gap [Moles/Vol] 12 mmol/L Normal 3-13 [facility] Comment on above: Performed By: #### L [id number] ####Director Consumer: SHAHLA WARREN ([phone])[facility] ([facility])[address] [place] [address] AST [Catalytic activity/Vol] 152 U/L High <34 [facility] Comment on above: Result Comment: TCPo tential interference from hemolysis Performed By: #### L [id number] ####Director Consumer: SHAHLA WARREN ([phone])[facility] ([facility])[address] [place] [address] Bilirubin [Mass/Vol] 0.4 mg/dL Normal <1.2 [facility] Comment on above: Performed By: #### L [id number] ####Director Consumer: SHAHLA WARREN ([phone])[facility])[address] [place] [address] Calcium [Mass/Vol] 9.1 mg/dL Normal 8.4-10.2 [facility] Comment on above: Performed By: #### L [id number] ####Director Consumer: SHAHLA WARREN ([phone])[facility])[address] [place] [address] [place] Chloride [Moles/Vol] 108 mmol/L High 98-107 [facility] Comment on above: Performed By: #### L [id number] ####Director Consumer: SHAHLA WARREN ([phone])[facility])[address] [place] [address] [place] CO2 [Moles/Vol] 17 mmol/L Low 22-29 [facility] Comment on above: Performed By: #### L [id number] ####Director Consumer: SHAHLA WARREN ([phone])[facility] [place] [address] Creatinine [Mass/Vol] 0.94 mg/dL Normal 0.72-1.25 [facility] Comment on above: Performed By: #### L [id number] ####Director Consumer: SHAHLA WARREN ([phone])[facility])[address] [place] [address] GLOMERULAR FILTRATION RATE ML/MIN/1.73 SQ M.PREDICTED >90.0 Normal >60.0 [facility] Comment on above: Result Comment: Calc ulation based on the Chronic Kidney Disease Epidemiology Collaboration (CKD-EPI) equation refit without adjustment for race Performed By: #### L [id number] ####Director Consumer: SHAHLA WARREN ([phone])[facility] ([facility])[address] [place] [address] Glucose [Mass/Vol] 96 mg/dL Normal 74-100 [facility] Comment on above: Performed By: #### L [id number] ####Director Consumer: SHAHLA WARREN ([phone])[facility])[address] [place] [address] Potassium [Moles/Vol] 4.5 mmol/L Normal 3.5-5.1 [facility] Comment on above: Result Comment: TCPo tential interference from hemolysis Performed By: #### L [id number] ####Director Consumer: SHAHLA WARREN ([phone])[facility])[address] [place] [address] Protein [Mass/Vol] 7.8 g/dL Normal 6.4-8.3 [facility] Comment on above: Performed By: #### L [id number] ####Director Consumer: SHAHLA WARREN ([phone])[facility])[address] [place] [address] Sodium [Moles/Vol] 137 mmol/L Normal 136-145 [facility] Comment on above: Performed By: #### L [id number] ####Director Consumer: SHAHLA [phone])[facility] ([facility])[address] [place] [address] Urea nitrogen [Mass/Vol] 15 mg/dL Normal 8-21 [facility] Comment on above: Performed By: #### L [id number] ####Director Consumer: SHAHLA WARREN ([phone])[facility] ([facility])[address] [place] [address] Comprehensive metabolic 1998 panelon 01-07-2025 Albumin [Mass/Vol] 2.8 g/dL Low 3.5 - 5.0 g/dL [facility] ALP [Catalytic activity/Vol] 114 U/L 40 - 150 U/L [facility] ALT [Catalytic activity/Vol] 335 U/L High NINF - 40 U/L [facility] Anion gap [Moles/Vol] 12 mmol/L 3 - 13 mmol/L [facility] AST [Catalytic activity/Vol] 152 U/L High NINF - 34 U/L [facility] Bilirubin [Mass/Vol] 0.4 mg/dL NINF - 1.2 mg/dL [facility] Calcium [Mass/Vol] 9.1 mg/dL 8.4 - 10. 2 mg/dL [facility] Chloride [Moles/Vol] 108 mmol/L High 98 - 10 7 mmol/L [facility] CO2 [Moles/Vol] 17 mmol/L Low 22 - 29 mmol/L [facility] Creatinine [Mass/Vol] 0.94 mg/dL 0.72 - 1.25 mg/dL [facility] GFR/1.73 sq M.predicted (S/P/Bld) [Vol rate/Area] - PINF [facility] Glucose [Mass/Vol] 96 mg/dL 74 - 100 mg/dL [facility] Interpretation and review of laboratory results Abnormal [facility] Potassium [Moles/Vol] 4.5 mmol/L 3.5 - 5.1 mmol/L [facility] Protein [Mass/Vol] 7.8 g/dL 6.4 - 8.3 g/dL [facility] Sodium [Moles/Vol] 137 mmol/L 136 - 145 mmol/L [facility] Urea nitrogen [Mass/Vol] 15 mg/dL 8 - 21 mg/dL [facility] - Chemistry and C hemistry - challengeon 01-07-2025 Glucose [Mass/Vol] 99 mg/dL 70 - 100 mg/dL [facility] Procalcitonin [Mass/Vol] 0.19 ng/mL High NINF - 0.07 ng/mL [facility] Beta hydroxybutyrate [Mass/Vol] 0.6 mg/dL NINF - 2.8 mg/dL [facility] No Panel Informationon 01-07 Interpretation and review of laboratory results Normal [facility] Interpretation and review of laboratory results Normal [facility] Nursing Noteon 01-07-2025 Nursing Note Patient is requestin g to go off the floor to cafeteria. RN stated that pt is on a heart monitor ans is not remitted to leave the floor. DR. Wilson up at the nurses station with pt and RN. Dr. Wilson stated that pt can go off the floor. Normal [facility] PROCALCITONIN TESTon 025 PROCALCITONIN 0.19 ng/mL High <0.07 [facility] Comment on above: Result Comment: DARIO Wylie COMMENTS:PCT <0.50 = Low risk of severe sepsis and/or septic shock.PCT >2.00 = High risk of severe sepsis and/or septic shock. Performed By: #### L [id number], [id number] ####Director Consumer: SHAHLA WARREN ([phone])[address] Procalcitonin [Mass/Vol]on 0 01-07-2025 Interpretation and review of laboratory results Abnormal [facility] Progress Noteon 01-07-2025 Progress Note Normal [facility] 30on 2025 30 Normal [facility] [id number] 2025 [id number] Normal [facility] [id number] Normal [facility] [id number] Normal [facility] CBC W Auto Differential pane l (Bld)on 2025 Basophils (Bld) [#/Vol] 0 10*3/uL 0.0 - 0.2 10*3/uL [facility] Basophils/100 WBC (Bld) 0.4 % 0.0 - 2.0 % [facility] Eosinophils (Bld) [#/Vol] 0.1 10*3/uL 0.0 - 0.5 10*3/uL [facility] Eosinophils/100 WBC (Bld) 1.2 % 0.0 - 6.0 % [facility] Erythrocyte distribution width (RBC) [Ratio] 13.2 % 11.5 - 15.0 % [facility] Hematocrit (Bld) [Volume fraction] 33.4 % Low 40.0 - 52.0 % [facility] Hemoglobin (Bld) [Mass/Vol] 11.3 g/dL Low 13.0 - 18.0 g/dL [facility] Immature granulocytes (Bld) [#/Vol] 0.1 10*3/uL High NINF - 0.1 10*3/uL [facility] Immature granulocytes/100 WBC (Bld) 1.2 % 0.0 - 2.0 % [facility] Interpretation and review of laboratory results Abnormal [facility] Lymphocytes (Bld) [#/Vol] 1.5 10*3/uL 1.0 - 4.3 10*3/uL [facility] Lymphocytes/100 WBC (Bld) 15 % 15.0 - 45.0 % [facility] MCH (RBC) [Entitic mass] 29.6 pg 26.0 - 34.0 pg [facility] MCHC (RBC) [Mass/Vol] 33.8 % 30.5 - 36.0 % [facility] MCV (RBC) [Entitic vol] 87.4 fL 77.0 - 99.0 fL [facility] Monocytes (Bld) [#/Vol] 0.9 10*3/uL 0.0 - 0.9 10*3/uL [facility] Monocytes/100 WBC (Bld) 8.6 % 5.0 - 13.0 % [facility] Neutrophils (Bld) [#/Vol] 7.5 10*3/uL 1.8 - 7.5 10*3/uL [facility] Neutrophils/100 WBC (Bld) 73.6 % 38.0 - 82.0 % [facility] Nucleated RBC/100 WBC (Bld) [Ratio] 0 % [facility] Platelet mean volume (Bld) [Entitic vol] 9.8 fL 9.0 - 12.7 fL [facility] Platelets (Bld) [#/Vol] 439 10*3/uL 140 - 440 10*3/uL [facility] RBC (Bld) [#/Vol] 3.82 10*6/uL Low 4.40 - 5.9 0 10*6/uL [facility] WBC (Bld) [#/Vol] 10.2 10*3/uL 3.6 - 10.7 10*3/uL [facility] CBC WITH AUTO DIFFERENTIALon 2025 Basophils (Bld) [#/Vol] 0.0 10*3/uL Normal 0.0-0.2 [facility] Comment on above: Performed By: #### L [id number] ####Director Consumer: SHAHLA WARREN ([phone])[facility])[address] [place] [address] Basophils/100 WBC (Bld) 0.4 % Normal 0.0-2.0 [facility] Comment on above: Performed By: #### L [id number] ####Director Consumer: SHAHLA WARREN ([phone])[facility])[address] [place] [address] Eosinophils (Bld) [#/Vol] 0.1 10*3/uL Normal 0.0-0.5 [facility] Comment on above: Performed By: #### L [id number] ####Director Consumer: SHAHLA WARREN ([phone])[facility])[address] [place] [address] Eosinophils/100 WBC (Bld) 1.2 % Normal 0.0-6.0 [facility] Comment on above: Performed By: #### L [id number] ####Director Consumer: SHAHLA WARREN ([phone])[facility])[address] [place] [address] Erythrocyte distribution width (RBC) [Ratio] 13.2 % Normal 11.5-15.0 [facility] Comment on above: Performed By: #### L [id number] ####Director Consumer: SHAHLA WARREN ([phone])[facility])[address] [place] [address] Hematocrit (Bld) [Volume fraction] 33.4 % Low 40.0-52.0 [facility] Comment on above: Performed By: #### L [id number] ####Director Consumer: SHAHLA WARREN ([phone])[facility])[address] [place] [address] Hemoglobin (Bld) [Mass/Vol] 11.3 g/dL Low 13.0-18.0 [facility] Comment on above: Performed By: #### L [id number] ####Director Consumer: SHAHLA WARREN ([phone])[facility])[address] [place] [address] IMMATURE GRANS % 1.2 % Normal 0.0-2.0 [facility] Comment on above: Performed By: #### L [id number] ####Director Consumer: SHAHLA WARREN ([phone])[facility])[address] [place] [address] IMMATURE GRANS ABSOLUTE 0.1 10*3/uL High <0.1 [facility] Comment on above: Performed By: #### L [id number] ####Director Consumer: SHAHLA WARREN ([phone])[facility])[address] [place] [address] Lymphocytes (Bld) [#/Vol] 1.5 10*3/uL Normal 1.0-4.3 [facility] Comment on above: Performed By: #### L [id number] ####Director Consumer: SHAHLA WARREN ([phone])[facility])[address] [place] [address] Lymphocytes/100 WBC (Bld) 15.0 % Normal 15.0-45.0 [facility] Comment on above: Performed By: #### L [id number] ####Director Consumer: SHAHLA WARREN ([phone])[facility])[address] [place] [address] MCH (RBC) [Entitic mass] 29.6 pg Normal 26.0-34.0 [facility] Comment on above: Performed By: #### L [id number] ####Director Consumer: SHAHLA WARREN ([phone])[facility])[address] [place] [address] MCHC 33.8 % Normal 30.5-36.0 [facility] Comment on above: Performed By: #### L [id number] ####Director Consumer: SHAHLA WARREN ([phone])[facility])[address] [place] [address] MCV (RBC) [Entitic vol] 87.4 fL Normal 77.0-99.0 [facility] Comment on above: Performed By: #### L [id number] ####Director Consumer: SHAHLA WARREN ([phone])[facility])[address] [place] [address] Monocytes (Bld) [#/Vol] 0.9 10*3/uL Normal 0.0-0.9 [facility] Comment on above: Performed By: #### L [id number] ####Director Consumer: SHAHLA WARREN ([phone])[facility])[address] [place] [address] Monocytes/100 WBC (Bld) 8.6 % Normal 5.0-13.0 [facility] Comment on above: Performed By: #### L [id number] ####Director Consumer: SHAHLA WARREN ([phone])[facility])[address] [place] [address] NEUTROPHILS ABSOLUTE 7.5 10*3/uL Normal 1.8-7.5 [facility] Comment on above: Performed By: #### L [id number] ####Director Consumer: SHAHLA WARREN ([phone])[facility])[address] [place] [address] Neutrophils/100 WBC (Bld) 73.6 % Normal 38.0-82.0 [facility] Comment on above: Performed By: #### L [id number] ####Director Consumer: SHAHLA WARREN ([phone])[facility])[address] [place] [address] NRBC 0.0 /100 WBCs Normal 0.0-2.0 [facility] Comment on above: Performed By: #### L [id number] ####Director Consumer: SHAHLA WARREN ([phone])[facility])[address] [place] [address] Platelet mean volume (Bld) [Entitic vol] 9.8 fL Normal 9.0-12.7 [facility] Comment on above: Performed By: #### L [id number] ####Director Consumer: SHAHLA WARREN ([phone])[facility] ([facility])[address] [place] [address] Platelets (Bld) [#/Vol] 439 10*3/uL Normal 140-440 [facility] Comment on above: Performed By: #### L [id number] ####Director Consumer: SHAHLA WARREN ([phone])[facility] ([facility])[address] [place] [address] RBC (Bld) [#/Vol] 3.82 10*6/uL Low 4.40-5.90 [facility] Comment on above: Performed By: #### L [id number] ####Director Consumer: SHAHLA WARREN ([phone])[facility])[address] [place] [address] WBC (Bld) [#/Vol] 10.2 10*3/uL Normal 3.6-10.7 [facility] Comment on above: Performed By: #### L [id number] ####Director Consumer: SHAHLA WARREN ([phone])[facility])[address] [place] [address] COMPREHENSIVE METABOLIC PANE Clifford 2025 Albumin [Mass/Vol] 2.7 g/dL Low 3.5-5.0 [facility] Comment on above: Performed By: #### L [id number] ####Director Consumer: SHAHLA WARREN ([phone])[facility])[address] [place] [address] [place] ALP [Catalytic activity/Vol] 110 U/L Normal 40-150 [facility] Comment on above: Performed By: #### L [id number] ####Director Consumer: SHAHLA WARREN ([phone])[facility] ([facility])[address] [place] [address] ALT [Catalytic activity/Vol] 358 U/L High <40 [facility] Comment on above: Performed By: #### L [id number] ####Director Consumer: SHAHLA WARREN ([phone])[facility] ([facility])[address] [place] [address] Anion gap [Moles/Vol] 8 mmol/L Normal 3-13 [facility] Comment on above: Performed By: #### L [id number] ####Director Consumer: SHAHLA WARREN ([phone])[facility] ([facility])[address] [place] [address] AST [Catalytic activity/Vol] 203 U/L High <34 [facility] Comment on above: Performed By: #### L [id number] ####Director Consumer: SHAHLA WARREN ([phone])[facility] ([facility])[address] [place] [address] Bilirubin [Mass/Vol] 0.6 mg/dL Normal <1.2 [facility] Comment on above: Performed By: #### L [id number] ####Director Consumer: SHAHLA WARREN ([phone])[facility] ([facility])[address] [place] [address] Calcium [Mass/Vol] 8.9 mg/dL Normal 8.4-10.2 [facility] Comment on above: Performed By: #### L [id number] ####Director Consumer: SHAHLA WARREN ([phone])[facility] ([facility])[address] [place] [address] Chloride [Moles/Vol] 111 mmol/L High 98-107 [facility] Comment on above: Performed By: #### L [id number] ####Director Consumer: SHAHLA WARREN ([phone])[facility])[address] [place] [address] [place] CO2 [Moles/Vol] 20 mmol/L Low 22-29 [facility] Comment on above: Performed By: #### L [id number] ####Director Consumer: SHAHLA WARREN ([phone])[facility] ([facility])[address] [place] [address] Creatinine [Mass/Vol] 0.85 mg/dL Normal 0.72-1.25 [facility] Comment on above: Performed By: #### L [id number] ####Director Consumer: SHAHLA WARREN ([phone])[facility])[address] [place] [address] GLOMERULAR FILTRATION RATE ML/MIN/1.73 SQ M.PREDICTED >90.0 Normal >60.0 [facility] Comment on above: Result Comment: Calc ulation based on the Chronic Kidney Disease Epidemiology Collaboration (CKD-EPI) equation refit without adjustment for race Performed By: #### L [id number] ####Director Consumer: SHAHLA WARREN ([phone])[facility] ([facility])[address] [place] [address] Glucose [Mass/Vol] 104 mg/dL High 74-100 [facility] Comment on above: Performed By: #### L [id number] ####Director Consumer: SHAHLA WARREN ([phone])[facility])[address] [place] [address] Potassium [Moles/Vol] 4.2 mmol/L Normal 3.5-5.1 [facility] Comment on above: Result Comment: [facility] potassium values may be up to 0.5 mmol/L lower than serum values. Performed By: #### L [id number] ####Director Consumer: SHAHLA WARREN ([phone])[facility])[address] [place] [address] Protein [Mass/Vol] 7.2 g/dL Normal 6.4-8.3 [facility] Comment on above: Performed By: #### L [id number] ####Director Consumer: SHAHLA [phone])[facility] ([facility])[address] [place] [address] Sodium [Moles/Vol] 139 mmol/L Normal 136-145 [facility] Comment on above: Performed By: #### L [id number] ####Director Consumer: SHAHLA WARREN ([phone])[facility] ([facility])[address] [place] [address] Urea nitrogen [Mass/Vol] 19 mg/dL Normal 8-21 [facility] Comment on above: Performed By: #### L [id number] ####Director Consumer: SHAHLA WARREN ([phone])[facility] [place] [address] CT CHEST ANGIOGRAM W AND/OR WO IV CONTRASTon 2025 CT CHEST ANGIOGRAM W AND/OR WO IV CONTRAST Normal [facility] CT CORONARY CTA WITH PROV FF R-CTon 2025 CT CORONARY CTA WITH PROV FFR-CT Normal [facility] CTA Chest vessels WO and W c ontrast Delia 2025 [facility] Radiology Study observation (narrative) [facility] CTA Heart and Coronary arter ies WO and W contrast Delia 2025 [facility] [place] Radiology Study observation (narrative) [facility] Comprehensive metabolic 1998 panelon 2025 Albumin [Mass/Vol] 2.7 g/dL Low 3.5 - 5.0 g/dL [facility] ALP [Catalytic activity/Vol] 110 U/L 40 - 150 U/L [facility] ALT [Catalytic activity/Vol] 358 U/L High NINF - 40 U/L [facility] Anion gap [Moles/Vol] 8 mmol/L 3 - 13 mmol/L [facility] AST [Catalytic activity/Vol] 203 U/L High NINF - 34 U/L [facility] Bilirubin [Mass/Vol] 0.6 mg/dL NINF - 1.2 mg/dL [facility] Calcium [Mass/Vol] 8.9 mg/dL 8.4 - 10. 2 mg/dL [facility] Chloride [Moles/Vol] 111 mmol/L High 98 - 10 7 mmol/L [facility] CO2 [Moles/Vol] 20 mmol/L Low 22 - 29 mmol/L [facility] Creatinine [Mass/Vol] 0.85 mg/dL 0.72 - 1.25 mg/dL [facility] GFR/1.73 sq M.predicted (S/P/Bld) [Vol rate/Area] - PINF [facility] Glucose [Mass/Vol] 104 mg/dL High 74 - 100 mg/dL [facility] Interpretation and review of laboratory results Abnormal [facility] Potassium [Moles/Vol] 4.2 mmol/L 3.5 - 5.1 mmol/L [facility] Protein [Mass/Vol] 7.2 g/dL 6.4 - 8.3 g/dL [facility] Sodium [Moles/Vol] 139 mmol/L 136 - 145 mmol/L [facility] Urea nitrogen [Mass/Vol] 19 mg/dL 8 - 21 mg/dL [facility] Consulton 2025 Consult Normal [facility] HIGH SENSITIVITY TROPONIN, S ERIAL BASELINEon 2025 TROPONIN HS SERIAL BASELINE 14 ng/L Normal <=35 [facility] Comment on above: Result Comment: In i ndividuals presenting with symptoms > 2h, a baseline troponin <= 5 ng/L suggests acutecardiac injury is unlikely and further serial testing is generally not indicated. Performed By: #### L [id number], [id number] ####Director Consumer: SHAHLA WARREN ([phone])[facility] ([address] HIGH SENSITIVITY TROPONIN, S ERIAL, SECOND TESTon 2025 2H TROPONIN HS (SERIAL 2ND TROPONIN) 13 ng/L Normal <=35 [facility] Comment on above: Result Comment: 2h t roponin (2nd troponin) samples collected between 1h 40 min and 2h and 20 min of the baseline collection time can be utilized to interpret delta troponins as per [facility] algorithms. Samples collected outside this timeframe need to be interpreted clinically.Rising or falling troponin delta below 2 ng/L as compared to baseline value suggests thatacute cardiac injury is unlikely. Performed By: #### L [id number] ####Director Consumer: SHAHLA WARREN ([phone])[facility] ([facility])[address] [place] [address] Laboratory - Coagulationon 0 2025 PT Coag (Bld) [Time] 11.4 s 9.0 - 12.0 s [facility] MR Heart WO and W contrast I Von 2025 [facility] EMERGENCY DEPARTMENT RADIOLOGY [facility] Radiology Study observation (narrative) [facility] MR Heart WO and W contrast I VOrdered By: Andrea Silveira on 2025 [facility] Work Phone: NT PRO BNPon 2025 Natriuretic peptide B (Bld) [Mass/Vol] 145 pg/mL High <125 [facility] Comment on above: Performed By: #### L [id number], [id number] ####Director Consumer: SHAHLA WARREN ([phone])[facility])[address] [place] [address] Natriuretic peptide B [Mass/ Vol]on 2025 Interpretation and review of laboratory results Abnormal [facility] Natriuretic peptide B (Bld) [Mass/Vol] 145 pg/mL High NINF - 125 pg/mL [facility] No Panel Informationon 01-06 2h Troponin HS (Serial 2nd Troponin) 13 ng/[facility] ng/L [facility] Interpretation and review of laboratory results Normal [facility] Interpretation and review of laboratory results Normal [facility] Troponin HS Serial Baseline 14 ng/L NINF - 35 ng/L [facility] Nursing Noteon 2025 Nursing Note In to draw a.m. labs , but patient refused. Said he is agreeable to having iv placed by day nurse and will allow lab draw at that time Normal [facility] PROTHROMBIN TIMEon INR Coag (PPP) [Relative time] 1.1 {INR} Normal 0.9-1.1 [facility] Comment on above: Result Comment: John mmended Anticoagulant Therapy: SEE BELOW----- INR of 2.0 - 3.0 : - Prophylaxis of Venous Thrombosis (high-risk surgery) - Treatment of Venous Thrombosis - Treatment of Pulmonary Embolism (Includes tissue heart valves, Acute Myocardial Infarction to prevent systemic embolism, Valvular Heart Disease, and Atrial Fibrillation)----- INR of 2.5 - 3.5 : - Mechanical Prosthetic Valves (high risk) - If oral anticoagulant therapy is used to prevent Myocardial Infarction Performed By: #### L [id number] ####Director Consumer: SHAHLA WARREN ([phone])[facility])[address] [place] [address] PT Coag (PPP) [Time] 11.4 s Normal 9.0-12.0 [facility] Comment on above: Performed By: #### L [id number] ####Director Consumer: SHAHLA WARREN ([phone])[facility] ([facility])[address] [place] [address] PT Coag (Bld) [Time]on 01-06 INR Coag (PPP) [Relative time] 1.1 {INR} 0.9 - 1.1 [facility] Interpretation and review of laboratory results Normal [facility] Progress Noteon 2025 Progress Note Normal [facility] Progress Note Normal [facility] Progress Note Normal [facility] Progress Note Normal [facility] 30on 01-05-2025 30 Normal [facility] [id number] 01-05-2025 [id number] Normal [facility] [id number] Normal [facility] [id number] Transfer from [facility]. Does not have insurance. Has been weaned to RA. Needs assist getting meds. SW aware. Plan is home when stable..Electronicall y signed by Denise Austin RN on 01/05/2025 at 11:15 AM Normal [facility] CALCIUM, IONIZEDon CALCIUM IONIZED 4.50 mg/dL Normal 4.30-5.20 [facility] Comment on above: Performed By: #### L [id number] ####Director Consumer: SHAHLA WARREN ([phone])[facility] ([facility])[address] [place] [address] PH, IONIZED CALCIUM 7.45 Normal 7.31-7.46 [facility] Comment on above: Performed By: #### L [id number] ####Director Consumer: SHAHLA WARREN ([phone])[facility] ([address] CBC W Auto Differential pane l (Bld)on 01-05-2025 Basophils (Bld) [#/Vol] 0 10*3/uL 0.0 - 0.2 10*3/uL [facility] Basophils/100 WBC (Bld) 0.3 % 0.0 - 2.0 % [facility] Eosinophils (Bld) [#/Vol] 0.1 10*3/uL 0.0 - 0.5 10*3/uL [facility] Eosinophils/100 WBC (Bld) 1 % 0.0 - 6.0 % [facility] Erythrocyte distribution width (RBC) [Ratio] 13.6 % 11.5 - 15.0 % [facility] Hematocrit (Bld) [Volume fraction] 38.7 % Low 40.0 - 52.0 % [facility] Hemoglobin (Bld) [Mass/Vol] 12.9 g/dL Low 13.0 - 18.0 g/dL [facility] Immature granulocytes (Bld) [#/Vol] 0.1 10*3/uL High NINF - 0.1 10*3/uL [facility] Immature granulocytes/100 WBC (Bld) 1 % 0.0 - 2.0 % [facility] Interpretation and review of laboratory results Abnormal [facility] Lymphocytes (Bld) [#/Vol] 1.4 10*3/uL 1.0 - 4.3 10*3/uL [facility] Lymphocytes/100 WBC (Bld) 13 % Low 15.0 - 45.0 % [facility] MCH (RBC) [Entitic mass] 29.4 pg 26.0 - 34.0 pg [facility] MCHC (RBC) [Mass/Vol] 33.3 % 30.5 - 36.0 % [facility] MCV (RBC) [Entitic vol] 88.2 fL 77.0 - 99.0 fL [facility] Monocytes (Bld) [#/Vol] 0.7 10*3/uL 0.0 - 0.9 10*3/uL [facility] Monocytes/100 WBC (Bld) 6.8 % 5.0 - 13.0 % [facility] Health Neutrophils (Bld) [#/Vol] 8.2 10*3/uL High 1.8 - 7.5 10*3/uL [facility] Neutrophils/100 WBC (Bld) 77.9 % 38.0 - 82.0 % [facility] Nucleated RBC/100 WBC (Bld) [Ratio] 0 % [facility] Platelet mean volume (Bld) [Entitic vol] 9.8 fL 9.0 - 12.7 fL [facility] Platelets (Bld) [#/Vol] 487 10*3/uL High 140 - 440 10*3/uL [facility] RBC (Bld) [#/Vol] 4.39 10*6/uL Low 4.40 - 5.9 0 10*6/uL [facility] WBC (Bld) [#/Vol] 10.5 10*3/uL 3.6 - 10.7 10*3/uL [facility] CBC WITH AUTO DIFFERENTIALon 01-05-2025 Basophils (Bld) [#/Vol] 0.0 10*3/uL Normal 0.0-0.2 [facility] Comment on above: Performed By: #### L [id number] ####Director Consumer: SHAHLA WARREN ([phone])[address] Basophils/100 WBC (Bld) 0.3 % Normal 0.0-2.0 [facility] Comment on above: Performed By: #### L [id number] ####Director Consumer: SHAHLA WARREN ([phone])[facility])[address] [place] [address] Eosinophils (Bld) [#/Vol] 0.1 10*3/uL Normal 0.0-0.5 [facility] Comment on above: Performed By: #### L [id number] ####Director Consumer: SHAHLA WARREN ([phone])[facility])[address] [place] [address] [place] Eosinophils/100 WBC (Bld) 1.0 % Normal 0.0-6.0 [facility] Comment on above: Performed By: #### L [id number] ####Director Consumer: SHAHLA WARREN ([phone])[facility] ([facility])[address] [place] [address] Erythrocyte distribution width (RBC) [Ratio] 13.6 % Normal 11.5-15.0 [facility] Comment on above: Performed By: #### L [id number] ####Director Consumer: SHAHLA WARREN ([phone])[facility])[address] [place] [address] Hematocrit (Bld) [Volume fraction] 38.7 % Low 40.0-52.0 [facility] Comment on above: Performed By: #### L [id number] ####Director Consumer: SHAHLA WARREN ([phone])[facility])[address] [place] [address] Hemoglobin (Bld) [Mass/Vol] 12.9 g/dL Low 13.0-18.0 [facility] Comment on above: Performed By: #### L [id number] ####Director Consumer: SHAHLA WARREN ([phone])[facility] ([facility])[address] [place] [address] IMMATURE GRANS % 1.0 % Normal 0.0-2.0 [facility] Comment on above: Performed By: #### L [id number] ####Director Consumer: SHAHLA WARREN ([phone])[facility])[address] [place] [address] IMMATURE GRANS ABSOLUTE 0.1 10*3/uL High <0.1 [facility] Comment on above: Performed By: #### L [id number] ####Director Consumer: SHAHLA WARREN ([phone])[facility])[address] [place] [address] Lymphocytes (Bld) [#/Vol] 1.4 10*3/uL Normal 1.0-4.3 [facility] Comment on above: Performed By: #### L [id number] ####Director Consumer: SHAHLA WARREN ([phone])[facility])[address] [place] [address] Lymphocytes/100 WBC (Bld) 13.0 % Low 15.0-45.0 [facility] Comment on above: Performed By: #### L [id number] ####Director Consumer: SHAHLA WARREN ([phone])[facility])[address] [place] [address] MCH (RBC) [Entitic mass] 29.4 pg Normal 26.0-34.0 [facility] Comment on above: Performed By: #### L [id number] ####Director Consumer: SHAHLA WARREN ([phone])[facility])[address] [place] [address] MCHC 33.3 % Normal 30.5-36.0 [facility] Comment on above: Performed By: #### L [id number] ####Director Consumer: SHAHLA WARREN ([phone])[facility])[address] [place] [address] MCV (RBC) [Entitic vol] 88.2 fL Normal 77.0-99.0 [facility] Comment on above: Performed By: #### L [id number] ####Director Consumer: SHAHLA WARREN ([phone])[facility])[address] [place] [address] Monocytes (Bld) [#/Vol] 0.7 10*3/uL Normal 0.0-0.9 [facility] Comment on above: Performed By: #### L [id number] ####Director Consumer: SHAHLA WARREN ([phone])[facility])[address] [place] [address] Monocytes/100 WBC (Bld) 6.8 % Normal 5.0-13.0 [facility] Comment on above: Performed By: #### L [id number] ####Director Consumer: SHAHLA WARREN ([phone])[facility])[address] [place] [address] NEUTROPHILS ABSOLUTE 8.2 10*3/uL High 1.8-7.5 [facility] Comment on above: Performed By: #### L [id number] ####Director Consumer: SHAHLA WARREN ([phone])[facility] ([facility])[address] [place] [address] Neutrophils/100 WBC (Bld) 77.9 % Normal 38.0-82.0 [facility] Comment on above: Performed By: #### L [id number] ####Director Consumer: SHAHLA WARREN ([phone])[facility] ([facility])[address] [place] [address] NRBC 0.0 /100 WBCs Normal 0.0-2.0 [facility] Comment on above: Performed By: #### L [id number] ####Director Consumer: SHAHLA AWRREN ([phone])[facility] ([facility])[address] [place] [address] Platelet mean volume (Bld) [Entitic vol] 9.8 fL Normal 9.0-12.7 [facility] Comment on above: Performed By: #### L [id number] ####Director Consumer: SHAHLA WARREN ([phone])[facility] ([facility])[address] [place] [address] Platelets (Bld) [#/Vol] 487 10*3/uL High 140-440 [facility] Comment on above: Performed By: #### L [id number] ####Director Consumer: SHAHLA WARREN ([phone])[facility] ([facility])[address] [place] [address] RBC (Bld) [#/Vol] 4.39 10*6/uL Low 4.40-5.90 [facility] Comment on above: Performed By: #### L [id number] ####Director Consumer: SHAHLA WARREN ([phone])[facility] ([facility])[address] [place] [address] WBC (Bld) [#/Vol] 10.5 10*3/uL Normal 3.6-10.7 [facility] Comment on above: Performed By: #### L [id number] ####Director Consumer: SHAHLA WARREN ([phone])[facility])[address] [place] [address] COMPREHENSIVE METABOLIC PANE Clifford 01-05-2025 Albumin [Mass/Vol] 3.0 g/dL Low 3.5-5.0 [facility] Comment on above: Performed By: #### L [id number], [id number] ####Director Consumer: SHAHLA WARREN ([phone])[facility])[address] ALP [Catalytic activity/Vol] 125 U/L Normal 40-150 [facility] Comment on above: Performed By: #### L [id number], [id number] ####Director Consumer: SHAHLA WARREN ([phone])[facility])[address] [place] [address] ALT [Catalytic activity/Vol] 294 U/L High <40 [facility] Comment on above: Performed By: #### L [id number], [id number] ####Director Consumer: SHAHLA WARREN ([phone])[facility] [place] [address] Anion gap [Moles/Vol] 11 mmol/L Normal 3-13 [facility] Comment on above: Performed By: #### L [id number], [id number] ####Director Consumer: SHAHLA WARREN ([phone])[facility])[address] [place] [address] [place] AST [Catalytic activity/Vol] 212 U/L High <34 [facility] Comment on above: Performed By: #### L [id number], [id number] ####Director Consumer: SHAHLA WARREN ([phone])[facility] ([facility])[address] [place] [address] Bilirubin [Mass/Vol] 0.7 mg/dL Normal <1.2 [facility] Comment on above: Performed By: #### L [id number], [id number] ####Director Consumer: SHAHLA WARREN ([phone])[facility] ([facility])[address] [place] [address] Calcium [Mass/Vol] 9.7 mg/dL Normal 8.4-10.2 [facility] Comment on above: Performed By: #### L [id number], [id number] ####Director Consumer: SHAHLA WARREN ([phone])[facility] ([facility])[address] [place] [address] Chloride [Moles/Vol] 110 mmol/L High 98-107 [facility] Comment on above: Performed By: #### L [id number], [id number] ####Director Consumer: SHAHLA WARREN ([phone])[facility] [place] [address] CO2 [Moles/Vol] 22 mmol/L Normal 22-29 [facility] Comment on above: Performed By: #### Prem [id number], [id number] ####Director Consumer: SHAHLA WARREN ([phone])[facility] ([facility])[address] [place] [address] Creatinine [Mass/Vol] 0.94 mg/dL Normal 0.72-1.25 [facility] Comment on above: Performed By: #### L YOEL, LAB17 ####Director Consumer: SHAHLA WARREN ([phone])[facility] ([facility])[address] [place] [address] GLOMERULAR FILTRATION RATE ML/MIN/1.73 SQ M.PREDICTED >90.0 Normal >60.0 [facility] Comment on above: Result Comment: Calc ulation based on the Chronic Kidney Disease Epidemiology Collaboration (CKD-EPI) equation refit without adjustment for race Performed By: #### L [id number], [id number] ####Director Consumer: SHAHLA WARREN ([phone])[facility] ([facility])[address] [place] [address] [place] Glucose [Mass/Vol] 135 mg/dL High 74-100 [facility] Comment on above: Performed By: #### L AB103, LAB17 ####Director Consumer: SHAHLA WARREN ([phone])[facility] ([facility])[address] [place] [address] [place] Potassium [Moles/Vol] 3.2 mmol/L Low 3.5-5.1 [facility] Comment on above: Result Comment: [facility] potassium values may be up to 0.5 mmol/L lower than serum values. Performed By: #### L AB103, LAB17 ####Director Consumer: SHAHLA WARREN ([phone])[facility])[address] [place] [address] Protein [Mass/Vol] 8.2 g/dL Normal 6.4-8.3 [facility] Comment on above: Performed By: #### L AB103, LAB17 ####Director Consumer: SHAHLA WARRNE ([phone])[facility])[address] [place] [address] Sodium [Moles/Vol] 143 mmol/L Normal 136-145 [facility] Comment on above: Performed By: #### L AB103, LAB17 ####Director Consumer: SHAHLA WARREN ([phone])[facility])[address] [place] [address] Urea nitrogen [Mass/Vol] 22 mg/dL High 8-21 [facility] Comment on above: Performed By: #### L AB103, LAB17 ####Director Consumer: SHAHLA WARREN ([phone])[facility])[address] [place] [address] Calcium.ionized [Moles/Vol]o n 01-05-2025 Calcium.ionized (Bld) [Moles/Vol] 4.5 mg/dL 4.30 - 5.20 mg/dL [facility] Interpretation and review of laboratory results Normal [facility] PH, IONIZED CALCIUM 7.45 7.31 - 7.46 [facility] Comprehensive metabolic 1998 panelon 01-05-2025 Albumin [Mass/Vol] 3 g/dL Low 3.5 - 5.0 g/dL [facility] ALP [Catalytic activity/Vol] 125 U/L 40 - 150 U/L [facility] ALT [Catalytic activity/Vol] 294 U/L High NINF - 40 U/L [facility] Anion gap [Moles/Vol] 11 mmol/L 3 - 13 mmol/L [facility] AST [Catalytic activity/Vol] 212 U/L High NINF - 34 U/L [facility] Bilirubin [Mass/Vol] 0.7 mg/dL NINF - 1.2 mg/dL [facility] Calcium [Mass/Vol] 9.7 mg/dL 8.4 - 10. 2 mg/dL [facility] Chloride [Moles/Vol] 110 mmol/L High 98 - 10 7 mmol/L [facility] CO2 [Moles/Vol] 22 mmol/L 22 - 29 mmol/L [facility] Creatinine [Mass/Vol] 0.94 mg/dL 0.72 - 1.25 mg/dL [facility] GFR/1.73 sq M.predicted (S/P/Bld) [Vol rate/Area] - PINF [facility] Glucose [Mass/Vol] 135 mg/dL High 74 - 100 mg/dL [facility] Interpretation and review of laboratory results Abnormal [facility] Potassium [Moles/Vol] 3.2 mmol/L Low 3.5 - 5.1 mmol/L [facility] Protein [Mass/Vol] 8.2 g/dL 6.4 - 8.3 g/dL [facility] Sodium [Moles/Vol] 143 mmol/L 136 - 145 mmol/L [facility] Urea nitrogen [Mass/Vol] 22 mg/dL High 8 - 21 mg/dL [facility] - Chemistry and C hemistry - challengeon 01-05-2025 Magnesium [Mass/Vol] 2.5 mg/dL 1.6 - 2 .6 mg/dL [facility] Glucose [Mass/Vol] 147 mg/dL High 70 - 100 mg/dL [facility] MAGNESIUMon 01-05-2025 Magnesium [Mass/Vol] 2.5 mg/dL Normal 1.6-2.6 [facility] Comment on above: Result Comment: ORDE R COMMENTS:Higher values can be expected in females during menses. Performed By: #### L AB103, LAB17 ####Director Consumer: SHAHLA WARREN ([phone])[facility] ([address] Magnesium [Mass/Vol]on 01-05 Interpretation and review of laboratory results Normal [facility] No Panel Informationon 01-05 Interpretation and review of laboratory results Abnormal [facility] Nursing Noteon 01-05-2025 Nursing Note Patient refusing lab s at this time. Normal [facility] Progress Noteon 01-05-2025 Progress Note Normal [facility] Progress Note Normal [facility] Laboratory - Chemistry and C hemistry - challengeon 01-04-2025 Glucose [Mass/Vol] 143 mg/dL High 70 - 100 mg/dL [facility] No Panel Informationon 01-04 Interpretation and review of laboratory results Abnormal [facility] Progress Noteon 01-04-2025 Progress Note Normal [facility] Progress Note Normal [facility] Progress Note Normal [facility] Progress Note Normal [facility] Progress Note Normal [facility] 30on 01-03-2025 30 Normal [facility] 30 Normal [facility] [id number] 01-03-2025 [id number] Normal [facility] CALCIUM, IONIZEDon CALCIUM IONIZED 4.70 mg/dL Normal 4.30-5.20 [facility] Comment on above: Performed By: #### L AB54 ####Director Consumer: SHAHLA WARREN ([phone])[address] PH, IONIZED CALCIUM 7.48 High 7.31-7.46 [facility] Comment on above: Performed By: #### L AB54 ####Director Consumer: SHAHLA WARREN ([phone])[facility] ([facility])[address] [place] [address] CBC W Auto Differential pane l (Bld)on 01-03-2025 Basophils (Bld) [#/Vol] 0 10*3/uL 0.0 - 0.2 10*3/uL [facility] Basophils/100 WBC (Bld) 0.2 % 0.0 - 2.0 % [facility] Eosinophils (Bld) [#/Vol] 0.2 10*3/uL 0.0 - 0.5 10*3/uL [facility] Eosinophils/100 WBC (Bld) 1.2 % 0.0 - 6.0 % [facility] Erythrocyte distribution width (RBC) [Ratio] 14.1 % 11.5 - 15.0 % [facility] Hematocrit (Bld) [Volume fraction] 34.6 % Low 40.0 - 52.0 % [facility] Hemoglobin (Bld) [Mass/Vol] 11.4 g/dL Low 13.0 - 18.0 g/dL [facility] Immature granulocytes (Bld) [#/Vol] 0.4 10*3/uL High NINF - 0.1 10*3/uL [facility] Immature granulocytes/100 WBC (Bld) 2.1 % High 0.0 - 2.0 % [facility] Interpretation and review of laboratory results Abnormal [facility] Lymphocytes (Bld) [#/Vol] 1.7 10*3/uL 1.0 - 4.3 10*3/uL [facility] Lymphocytes/100 WBC (Bld) 9 % Low 15.0 - 45.0 % [facility] MCH (RBC) [Entitic mass] 29.2 pg 26.0 - 34.0 pg [facility] MCHC (RBC) [Mass/Vol] 32.9 % 30.5 - 36.0 % [facility] MCV (RBC) [Entitic vol] 88.5 fL 77.0 - 99.0 fL [facility] Monocytes (Bld) [#/Vol] 0.5 10*3/uL 0.0 - 0.9 10*3/uL [facility] Monocytes/100 WBC (Bld) 2.8 % Low 5.0 - 13.0 % [facility] Neutrophils (Bld) [#/Vol] 15.7 10*3/uL High 1.8 - 7.5 10*3/uL [facility] Neutrophils/100 WBC (Bld) 84.7 % High 38.0 - 82.0 % [facility] Nucleated RBC/100 WBC (Bld) [Ratio] 0.1 % [facility] Platelet mean volume (Bld) [Entitic vol] 9.8 fL 9.0 - 12.7 fL [facility] Platelets (Bld) [#/Vol] 304 10*3/uL 140 - 440 10*3/uL [facility] RBC (Bld) [#/Vol] 3.91 10*6/uL Low 4.40 - 5.9 0 10*6/uL [facility] WBC (Bld) [#/Vol] 18.5 10*3/uL High 3.6 - 10.7 10*3/uL [facility] CBC WITH AUTO DIFFERENTIALon 01-03-2025 Basophils (Bld) [#/Vol] 0.0 10*3/uL Normal 0.0-0.2 [facility] Comment on above: Performed By: #### L [id number] ####Director Consumer: SHAHLA WARREN ([phone])[facility])[address] [place] [address] Basophils/100 WBC (Bld) 0.2 % Normal 0.0-2.0 [facility] Comment on above: Performed By: #### L [id number] ####Director Consumer: SHAHLA WARREN ([phone])[facility])[address] [place] [address] Eosinophils (Bld) [#/Vol] 0.2 10*3/uL Normal 0.0-0.5 [facility] Comment on above: Performed By: #### L [id number] ####Director Consumer: SHAHLA WARREN ([phone])[facility])[address] [place] [address] Eosinophils/100 WBC (Bld) 1.2 % Normal 0.0-6.0 [facility] Comment on above: Performed By: #### L [id number] ####Director Consumer: SHAHLA WARREN ([phone])[facility])[address] [place] [address] Erythrocyte distribution width (RBC) [Ratio] 14.1 % Normal 11.5-15.0 [facility] Comment on above: Performed By: #### L [id number] ####Director Consumer: SHAHLA WARREN ([phone])[facility])[address] [place] [address] Hematocrit (Bld) [Volume fraction] 34.6 % Low 40.0-52.0 [facility] Comment on above: Performed By: #### L [id number] ####Director Consumer: SHAHLA WARREN ([phone])[facility])[address] [place] [address] Hemoglobin (Bld) [Mass/Vol] 11.4 g/dL Low 13.0-18.0 [facility] Comment on above: Performed By: #### L [id number] ####Director Consumer: SHAHLA WARREN ([phone])[facility])[address] [place] [address] IMMATURE GRANS % 2.1 % High 0.0-2.0 [facility] Comment on above: Performed By: #### L [id number] ####Director Consumer: SHAHLA WARREN ([phone])[facility])[address] [place] [address] IMMATURE GRANS ABSOLUTE 0.4 10*3/uL High <0.1 [facility] Comment on above: Performed By: #### L [id number] ####Director Consumer: SHAHLA WARREN ([phone])[facility])[address] [place] [address] Lymphocytes (Bld) [#/Vol] 1.7 10*3/uL Normal 1.0-4.3 [facility] Comment on above: Performed By: #### L [id number] ####Director Consumer: SHAHLA WARREN ([phone])[facility])[address] [place] [address] Lymphocytes/100 WBC (Bld) 9.0 % Low 15.0-45.0 [facility] Comment on above: Performed By: #### L [id number] ####Director Consumer: SHAHLA WARREN ([phone])[facility])[address] [place] [address] MCH (RBC) [Entitic mass] 29.2 pg Normal 26.0-34.0 [facility] Comment on above: Performed By: #### L [id number] ####Director Consumer: SHAHLA WARREN ([phone])[facility] ([facility])[address] [place] [address] MCHC 32.9 % Normal 30.5-36.0 [facility] Comment on above: Performed By: #### L [id number] ####Director Consumer: SHAHLA WARREN ([phone])[facility] ([facility])[address] [place] [address] MCV (RBC) [Entitic vol] 88.5 fL Normal 77.0-99.0 [facility] Comment on above: Performed By: #### L [id number] ####Director Consumer: SAHHLA WARREN ([phone])[facility])[address] [place] [address] Monocytes (Bld) [#/Vol] 0.5 10*3/uL Normal 0.0-0.9 [facility] Comment on above: Performed By: #### L [id number] ####Director Consumer: SHAHLA WARREN ([phone])[facility] ([facility])[address] [place] [address] Monocytes/100 WBC (Bld) 2.8 % Low 5.0-13.0 [facility] Comment on above: Performed By: #### L [id number] ####Director Consumer: SHAHLA WARREN ([phone])[facility])[address] [place] [address] NEUTROPHILS ABSOLUTE 15.7 10*3/uL High 1.8-7.5 [facility] Comment on above: Performed By: #### L [id number] ####Director Consumer: SHAHLA WARREN ([phone])[facility] ([facility])[address] [place] [address] Neutrophils/100 WBC (Bld) 84.7 % High 38.0-82.0 [facility] Comment on above: Performed By: #### L [id number] ####Director Consumer: SHAHLA WARREN ([phone])[facility] ([facility])[address] [place] [address] NRBC 0.1 /100 WBCs Normal 0.0-2.0 [facility] Comment on above: Performed By: #### L [id number] ####Director Consumer: SHAHLA WARREN ([phone])[facility] ([facility])[address] [place] [address] Platelet mean volume (Bld) [Entitic vol] 9.8 fL Normal 9.0-12.7 [facility] Comment on above: Performed By: #### L [id number] ####Director Consumer: SHAHLA WARREN ([phone])[facility] ([facility])[address] [place] [address] Platelets (Bld) [#/Vol] 304 10*3/uL Normal 140-440 [facility] Comment on above: Performed By: #### L [id number] ####Director Consumer: SHAHLA WARREN ([phone])[facility] ([facility])[address] [place] [address] RBC (Bld) [#/Vol] 3.91 10*6/uL Low 4.40-5.90 [facility] Comment on above: Performed By: #### L [id number] ####Director Consumer: SHAHLA WARREN ([phone])[facility] ([facility])[address] [place] [address] WBC (Bld) [#/Vol] 18.5 10*3/uL High 3.6-10.7 [facility] Comment on above: Performed By: #### L [id number] ####Director Consumer: SHAHLA WARREN ([phone])[facility] ([facility])[address] [place] [address] COMPREHENSIVE METABOLIC PANE Clifford 01-03-2025 Albumin [Mass/Vol] 2.7 g/dL Low 3.5-5.0 [facility] Comment on above: Performed By: #### L [id number] ####Director Consumer: SHAHLA WARREN ([phone])[facility] ([facility])[address] [place] [address] ALP [Catalytic activity/Vol] 98 U/L Normal 40-150 [facility] Comment on above: Performed By: #### L [id number] ####Director Consumer: SHAHLA WARREN ([phone])[facility])[address] [place] [address] ALT [Catalytic activity/Vol] 116 U/L High <40 [facility] Comment on above: Performed By: #### L [id number] ####Director Consumer: SHAHLA WARREN ([phone])[facility] ([facility])[address] [place] [address] Anion gap [Moles/Vol] 12 mmol/L Normal 3-13 [facility] Comment on above: Performed By: #### L [id number] ####Director Consumer: SHAHLA WARREN ([phone])[facility])[address] [place] [address] AST [Catalytic activity/Vol] 65 U/L High <34 [facility] Comment on above: Performed By: #### L [id number] ####Director Consumer: SHAHLA WARREN ([phone])[facility] ([facility])[address] [place] [address] Bilirubin [Mass/Vol] 0.8 mg/dL Normal <1.2 [facility] Comment on above: Performed By: #### L [id number] ####Director Consumer: SHAHLA WARREN ([phone])[facility] ([facility])[address] [place] [address] Calcium [Mass/Vol] 9.9 mg/dL Normal 8.4-10.2 [facility] Comment on above: Performed By: #### L [id number] ####Director Consumer: SHAHLA WARREN ([phone])[facility] ([facility])[address] [place] [address] [place] Chloride [Moles/Vol] 116 mmol/L High 98-107 [facility] Comment on above: Performed By: #### L [id number] ####Director Consumer: SHAHLA WARREN ([phone])[facility] ([facility])[address] [place] [address] [place] CO2 [Moles/Vol] 19 mmol/L Low 22-29 [facility] Comment on above: Performed By: #### L [id number] ####Director Consumer: SHAHLA WARREN ([phone])[facility] ([facility])[address] [place] [address] Creatinine [Mass/Vol] 1.14 mg/dL Normal 0.72-1.25 [facility] Comment on above: Performed By: #### L [id number] ####Director Consumer: SHAHLA WARREN ([phone])[facility] ([facility])[address] [place] [address] GLOMERULAR FILTRATION RATE ML/MIN/1.73 SQ M.PREDICTED 86.0 mL/min/1.73m*2 Normal >60.0 [facility] Comment on above: Result Comment: Calc ulation based on the Chronic Kidney Disease Epidemiology Collaboration (CKD-EPI) equation refit without adjustment for race Performed By: #### L [id number] ####Director Consumer: SHAHLA WARREN ([phone])[facility] ([facility])[address] [place] [address] Glucose [Mass/Vol] 104 mg/dL High 74-100 [facility] Comment on above: Performed By: #### L [id number] ####Director Consumer: SHAHLA WARREN ([phone])[facility])[address] [place] [address] Potassium [Moles/Vol] 3.4 mmol/L Low 3.5-5.1 [facility] Comment on above: Result Comment: [facility] potassium values may be up to 0.5 mmol/L lower than serum values. Performed By: #### L [id number] ####Director Consumer: SHAHLA WARREN ([phone])[facility])[address] [place] [address] Protein [Mass/Vol] 7.5 g/dL Normal 6.4-8.3 [facility] Comment on above: Performed By: #### L [id number] ####Director Consumer: SHAHLA [phone])[facility] [place] [address] Sodium [Moles/Vol] 147 mmol/L High 136-145 [facility] Comment on above: Performed By: #### L [id number] ####Director Consumer: SHAHLA WARREN ([phone])[facility] ([facility])[address] [place] [address] Urea nitrogen [Mass/Vol] 34 mg/dL High 8-21 [facility] Comment on above: Performed By: #### L [id number] ####Director Consumer: SHAHLA WARREN ([phone])[facility] [place] [address] Calcium.ionized [Moles/Vol]o n 01-03-2025 Calcium.ionized (Bld) [Moles/Vol] 4.7 mg/dL 4.30 - 5.20 mg/dL [facility] Interpretation and review of laboratory results Abnormal [facility] PH, IONIZED CALCIUM 7.48 High 7.31 - 7.46 [facility] Comprehensive metabolic 1998 panelon 01-03-2025 Albumin [Mass/Vol] 2.7 g/dL Low 3.5 - 5.0 g/dL [facility] ALP [Catalytic activity/Vol] 98 U/L 40 - 150 U/L [facility] ALT [Catalytic activity/Vol] 116 U/L [facility]/L [facility] Anion gap [Moles/Vol] 12 mmol/L 3 - 13 mmol/L [facility] AST [Catalytic activity/Vol] 65 U/L High NINF - 34 U/L [facility] Bilirubin [Mass/Vol] 0.8 mg/dL NINF - 1.2 mg/dL [facility] Calcium [Mass/Vol] 9.9 mg/dL 8.4 - 10. 2 mg/dL [facility] Chloride [Moles/Vol] 116 mmol/L High 98 - 10 7 mmol/L [facility] CO2 [Moles/Vol] 19 mmol/L Low 22 - 29 mmol/L [facility] Creatinine [Mass/Vol] 1.14 mg/dL 0.72 - 1.25 mg/dL [facility] GFR/1.73 sq M.predicted (S/P/Bld) [Vol rate/Area] 86 mL/min - PINF [facility] Glucose [Mass/Vol] 104 mg/dL High 74 - 100 mg/dL [facility] Interpretation and review of laboratory results Abnormal [facility] Potassium [Moles/Vol] 3.4 mmol/L Low 3.5 - 5.1 mmol/L [facility] Protein [Mass/Vol] 7.5 g/dL 6.4 - 8.3 g/dL [facility] Sodium [Moles/Vol] 147 mmol/L High 136 - 145 mmol/L [facility] Urea nitrogen [Mass/Vol] 34 mg/dL High 8 - 21 mg/dL [facility] - Chemistry and C hemistry - challengeon 01-03-2025 Glucose [Mass/Vol] 118 mg/dL High 70 - 100 mg/dL [facility] Glucose [Mass/Vol] 103 mg/dL High 70 - 100 mg/dL [facility] Glucose [Mass/Vol] 111 mg/dL High 70 - 100 mg/dL [facility] Glucose [Mass/Vol] 99 mg/dL 70 - 100 mg/dL [facility] Glucose [Mass/Vol] 100 mg/dL 70 - 100 mg/dL [facility] No Panel Informationon 01-03 Interpretation and review of laboratory results Abnormal [facility] Interpretation and review of laboratory results Abnormal [facility] Interpretation and review of laboratory results Abnormal [facility] Interpretation and review of laboratory results Normal [facility] Interpretation and review of laboratory results Normal [facility] Progress Noteon 01-03-2025 Progress Note Normal [facility] Progress Note Normal [facility] XR CHEST 1 VIEWon 01-03-2025 XR CHEST 1 VIEW Normal [facility] XR Chest Single viewon 01-03 [facility] EM[facility]PART[facility] RADIOLOGY SYSTEM [facility] EMERGENC[facility]PART[facility] RADIOLOGY SYSTEM [facility] Radiology Study observation (narrative) [facility] XR Chest Single viewOrdered By: Camilo Cage on 01-03-2025 [facility] Work Phone: 30on 01-02-2025 30 Normal [facility] [id number] 01-02-2025 [id number] Normal [facility] BASIC METABOLIC PANELon 05- Anion gap [Moles/Vol] 8 mmol/L Normal 3-13 [facility] Comment on above: Performed By: #### L [id number] ####Director Consumer: SHAHLA WARREN ([phone])[facility] ([facility])[address] [place] [address] Calcium [Mass/Vol] 9.2 mg/dL Normal 8.4-10.2 [facility] Comment on above: Performed By: #### L [id number] ####Director Consumer: SHAHLA WARREN ([phone])[facility] [place] [address] Chloride [Moles/Vol] 119 mmol/L High 98-107 [facility] Comment on above: Performed By: #### L [id number] ####Director Consumer: SHAHLA WARREN ([phone])[facility] [place] [address] CO2 [Moles/Vol] 18 mmol/L Low 22-29 [facility] Comment on above: Performed By: #### L AB15 ####Director Consumer: SHAHLA WARREN ([phone])[facility] ([facility])[address] [place] [address] Creatinine [Mass/Vol] 0.84 mg/dL Normal 0.72-1.25 [facility] Comment on above: Performed By: #### L AB15 ####Director Consumer: SHAHLA WARREN ([phone])[facility] ([facility])[address] [place] [address] GLOMERULAR FILTRATION RATE ML/MIN/1.73 SQ M.PREDICTED >90.0 Normal >60.0 [facility] Comment on above: Result Comment: Calc ulation based on the Chronic Kidney Disease Epidemiology Collaboration (CKD-EPI) equation refit without adjustment for race Performed By: #### L [id number] ####Director Consumer: SHAHLA WARREN ([phone])[facility] [place] [address] Glucose [Mass/Vol] 140 mg/dL High 74-100 [facility] Comment on above: Performed By: #### L AB15 ####Director Consumer: SHAHLA WARREN ([phone])[facility])[address] [place] [address] Potassium [Moles/Vol] 3.4 mmol/L Low 3.5-5.1 [facility] Comment on above: Result Comment: [facility] potassium values may be up to 0.5 mmol/L lower than serum values. Performed By: #### L AB15 ####Director Consumer: SHAHLA WARREN ([phone])[facility] ([facility])[address] [place] [address] Sodium [Moles/Vol] 145 mmol/L Normal 136-145 [facility] Comment on above: Performed By: #### L AB15 ####Director Consumer: SHAHLA WARREN ([phone])[facility])[address] [place] [address] Urea nitrogen [Mass/Vol] 32 mg/dL High 8-21 [facility] Comment on above: Performed By: #### L AB15 ####Director Consumer: SHAHLA WARREN ([phone])[facility])[address] [place] [address] Anion gap [Moles/Vol] 11 mmol/L Normal 3-13 [facility] Comment on above: Performed By: #### L AB15 ####Director Consumer: SHAHLA WARREN ([phone])[facility])[address] [place] [address] Calcium [Mass/Vol] 9.6 mg/dL Normal 8.4-10.2 [facility] Comment on above: Performed By: #### L [id number] ####Director Consumer: SHAHLA WARREN ([phone])[facility])[address] [place] [address] [place] Chloride [Moles/Vol] 118 mmol/L High 98-107 [facility] Comment on above: Performed By: #### L [id number] ####Director Consumer: SHAHLA WARREN ([phone])[facility] ([facility])[address] [place] [address] CO2 [Moles/Vol] 19 mmol/L Low 22-29 [facility] Comment on above: Performed By: #### L AB15 ####Director Consumer: SHAHLA WARREN ([phone])[facility] ([facility])[address] [place] [address] Creatinine [Mass/Vol] 1.05 mg/dL Normal 0.72-1.25 [facility] Comment on above: Performed By: #### L AB15 ####Director Consumer: SHAHLA WARREN ([phone])[facility] ([facility])[address] [place] [address] GLOMERULAR FILTRATION RATE ML/MIN/1.73 SQ M.PREDICTED >90.0 Normal >60.0 [facility] Comment on above: Result Comment: Calc ulation based on the Chronic Kidney Disease Epidemiology Collaboration (CKD-EPI) equation refit without adjustment for race Performed By: #### L AB15 ####Director Consumer: SHAHLA WARREN ([phone])[facility])[address] [place] [address] Glucose [Mass/Vol] 127 mg/dL High 74-100 [facility] Comment on above: Performed By: #### L AB15 ####Director Consumer: SHAHLA WARREN ([phone])[facility] ([facility])[address] [place] [address] Potassium [Moles/Vol] 3.5 mmol/L Normal 3.5-5.1 [facility] Comment on above: Result Comment: [facility] potassium values may be up to 0.5 mmol/L lower than serum values. Performed By: #### L AB15 ####Director Consumer: SHAHLA WARREN ([phone])[facility] ([facility])[address] [place] [address] Sodium [Moles/Vol] 148 mmol/L High 136-145 [facility] Comment on above: Performed By: #### L AB15 ####Director Consumer: SHAHLA WARREN ([phone])[facility] ([facility])[address] [place] [address] Urea nitrogen [Mass/Vol] 29 mg/dL High 8-21 [facility] Comment on above: Performed By: #### L AB15 ####Director Consumer: SHAHLA WARREN ([phone])[facility] ([facility])[address] [place] [address] BLOOD GAS ARTERIALon 025 AMOUNT OF OXYGEN 45 Normal [facility] Comment on above: Order Comment: While on ventilator Performed By: #### L [id number] ####Director Consumer: SHAHLA WARREN ([phone])[facility] ([facility])[address] [place] [address] Base excess Calc (Bld) [Moles/Vol] -3.6000 mmol/L Low -3.0-3.0 [facility] Comment on above: Order Comment: While on ventilator Performed By: #### L [id number] ####Director Consumer: SHAHLA WARREN ([phone])[facility] ([facility])[address] [place] [address] CO2 [Moles/Vol] 20.5 mmol/L Low 23.0-27.0 [facility] Comment on above: Order Comment: While on ventilator Performed By: #### L [id number] ####Director Consumer: SHAHLA WARREN ([phone])[facility] ([facility])[address] [place] [address] HCO3 (Bld) [Moles/Vol] 19.6 mmol/L Low 21.0-25.0 [facility] Comment on above: Order Comment: While on ventilator Performed By: #### L [id number] ####Director Consumer: SHAHLA WARREN ([phone])[facility] ([facility])[address] [place] [address] Hemoglobin (Bld) [Mass/Vol] 11.5 g/dL Normal Screen only [facility] Comment on above: Order Comment: While on ventilator Performed By: #### L [id number] ####Director Consumer: SHAHLA WARREN ([phone])[facility] ([facility])[address] [place] [address] OXYGEN SATURATION (%) IN ARTERIAL BLOOD 94.2 % Low 95.0-100.0 [facility] Comment on above: Order Comment: While on ventilator Performed By: #### L [id number] ####Director Consumer: SHAHLA WARREN ([phone])[facility] ([facility])[address] [place] [address] PCO2 ARTERIAL 29.4 mm Hg Low >35.0-<45.0 [facility] Comment on above: Order Comment: While on ventilator Performed By: #### L [id number] ####Director Consumer: SHAHLA WARREN ([phone])[facility])[address] [place] [address] PH ARTERIAL 7.441 Normal 7.350-7.450 [facility] Comment on above: Order Comment: While on ventilator Performed By: #### L [id number] ####Director Consumer: SHAHLA WARREN ([phone])[facility] ([facility])[address] [place] [address] PO2 ARTERIAL 74.3 mm Hg Low 80.0-100.0 [facility] Comment on above: Order Comment: While on ventilator Performed By: #### L [id number] ####Director Consumer: SHAHLA WARREN ([phone])[facility])[address] [place] [address] SOURCE OF OXYGEN Ventilator Normal [facility] Comment on above: Order Comment: While on ventilator Performed By: #### L [id number] ####Director Consumer: SHAHLA WARREN ([phone])[facility])[address] [place] [address] [place] AMOUNT OF OXYGEN 45 Normal [facility] Comment on above: Order Comment: While on ventilator Performed By: #### L [id number] ####Director Consumer: SHAHLA WARREN ([phone])[facility] ([facility])[address] [place] [address] Base excess Calc (Bld) [Moles/Vol] -4.4000 mmol/L Low -3.0-3.0 [facility] Comment on above: Order Comment: While on ventilator Performed By: #### L [id number] ####Director Consumer: SHAHLA WARREN ([phone])[facility] ([facility])[address] [place] [address] CO2 [Moles/Vol] 20.2 mmol/L Low 23.0-27.0 [facility] Comment on above: Order Comment: While on ventilator Performed By: #### L [id number] ####Director Consumer: SHAHLA WARREN ([phone])[facility] [place] [address] HCO3 (Bld) [Moles/Vol] 19.3 mmol/L Low 21.0-25.0 [facility] Comment on above: Order Comment: While on ventilator Performed By: #### L [id number] ####Director Consumer: SHAHLA WARREN ([phone])[facility] [place] [address] Hemoglobin (Bld) [Mass/Vol] 12.7 g/dL Normal Screen only [facility] Comment on above: Order Comment: While on ventilator Performed By: #### L [id number] ####Director Consumer: SHAHLA WARREN ([phone])[facility])[address] [place] [address] OXYGEN SATURATION (%) IN ARTERIAL BLOOD 96.9 % Normal 95.0-100.0 [facility] Comment on above: Order Comment: While on ventilator Performed By: #### L [id number] ####Director Consumer: SHAHLA WARREN ([phone])[facility] [place] [address] PCO2 ARTERIAL 31.4 mm Hg Low >35.0-<45.0 [facility] Comment on above: Order Comment: While on ventilator Performed By: #### L [id number] ####Director Consumer: SHAHLA WARREN ([phone])[facility])[address] [place] [address] PH ARTERIAL 7.406 Normal 7.350-7.450 [facility] Comment on above: Order Comment: While on ventilator Performed By: #### L [id number] ####Director Consumer: SHAHLA WARREN ([phone])[facility] ([facility])[address] [place] [address] PO2 ARTERIAL 100.7 mm Hg High 80.0-100.0 [facility] Comment on above: Order Comment: While on ventilator Performed By: #### L [id number] ####Director Consumer: SHAHLA WARREN ([phone])[facility] ([facility])[address] [place] [address] SOURCE OF OXYGEN Ventilator Normal [facility] Comment on above: Order Comment: While on ventilator Performed By: #### L [id number] ####Director Consumer: SHAHLA WARREN ([phone])[facility] ([facility])[address] [place] [address] Basic metabolic 1998 panelon 01-02-2025 Anion gap [Moles/Vol] 8 mmol/L 3 - 13 mmol/L [facility] Calcium [Mass/Vol] 9.2 mg/dL 8.4 - 10. 2 mg/dL [facility] Chloride [Moles/Vol] 119 mmol/L High 98 - 10 7 mmol/L [facility] CO2 [Moles/Vol] 18 mmol/L Low 22 - 29 mmol/L [facility] Creatinine [Mass/Vol] 0.84 mg/dL 0.72 - 1.25 mg/dL [facility] GFR/1.73 sq M.predicted (S/P/Bld) [Vol rate/Area] - PINF [facility] Glucose [Mass/Vol] 140 mg/dL High 74 - 100 mg/dL [facility] Interpretation and review of laboratory results Abnormal [facility] Potassium [Moles/Vol] 3.4 mmol/L Low 3.5 - 5.1 mmol/L [facility] Sodium [Moles/Vol] 145 mmol/L 136 - 145 mmol/L [facility] Urea nitrogen [Mass/Vol] 32 mg/dL High 8 - 21 mg/dL [facility] Anion gap [Moles/Vol] 11 mmol/L 3 - 13 mmol/L [facility] Calcium [Mass/Vol] 9.6 mg/dL 8.4 - 10. 2 mg/dL [facility] Chloride [Moles/Vol] 118 mmol/L High 98 - 10 7 mmol/L [facility] CO2 [Moles/Vol] 19 mmol/L Low 22 - 29 mmol/L [facility] Creatinine [Mass/Vol] 1.05 mg/dL 0.72 - 1.25 mg/dL [facility] GFR/1.73 sq M.predicted (S/P/Bld) [Vol rate/Area] - PINF [facility] Glucose [Mass/Vol] 127 mg/dL High 74 - 100 mg/dL [facility] Interpretation and review of laboratory results Abnormal [facility] Potassium [Moles/Vol] 3.5 mmol/L 3.5 - 5.1 mmol/L [facility] Sodium [Moles/Vol] 148 mmol/L High 136 - 145 mmol/L [facility] Urea nitrogen [Mass/Vol] 29 mg/dL High 8 - 21 mg/dL [facility] CALCIUM, IONIZEDon CALCIUM IONIZED 4.80 mg/dL Normal 4.30-5.20 [facility] Comment on above: Performed By: #### L [id number] ####Director Consumer: SHAHLA WARREN ([phone])[address] PH, IONIZED CALCIUM 7.32 Normal 7.31-7.46 [facility] Comment on above: Performed By: #### L [id number] ####Director Consumer: SHAHLA WARREN ([phone])[address] CBC W Auto Differential pane l (Bld)on 01-02-2025 Erythrocyte distribution width (RBC) [Ratio] 14.7 % 11.5 - 15.0 % [facility] Hematocrit (Bld) [Volume fraction] 30.2 % Low 40.0 - 52.0 % [facility] Hemoglobin (Bld) [Mass/Vol] 9.9 g/dL Low 13.0 - 18.0 g/dL [facility] Interpretation and review of laboratory results Abnormal [facility] MCH (RBC) [Entitic mass] 29.9 pg 26.0 - 34.0 pg [facility] MCHC (RBC) [Mass/Vol] 32.8 % 30.5 - 36.0 % [facility] MCV (RBC) [Entitic vol] 91.2 fL 77.0 - 99.0 fL [facility] Platelet mean volume (Bld) [Entitic vol] 9.8 fL 9.0 - 12.7 fL [facility] Platelets (Bld) [#/Vol] 227 10*3/uL 140 - 440 10*3/uL [facility] RBC (Bld) [#/Vol] 3.31 10*6/uL Low 4.40 - 5.9 0 10*6/uL [facility] WBC (Bld) [#/Vol] 18.2 10*3/uL High 3.6 - 10.7 10*3/uL [facility] CBC WITH AUTO DIFFERENTIALon 01-02-2025 Erythrocyte distribution width (RBC) [Ratio] 14.7 % Normal 11.5-15.0 [facility] Comment on above: Performed By: #### Prem [id number], [id number] ####Director Consumer: SHAHLA WARREN ([phone])[address] Hematocrit (Bld) [Volume fraction] 30.2 % Low 40.0-52.0 [facility] Comment on above: Performed By: #### Prem [id number], [id number] ####Director Consumer: SHAHLA WARREN ([phone])[facility] ([facility])[address] [place] [address] [place] Hemoglobin (Bld) [Mass/Vol] 9.9 g/dL Low 13.0-18.0 [facility] Comment on above: Performed By: #### L [id number], [id number] ####Director Consumer: SHAHLA WARREN ([phone])[facility])[address] [place] [address] MCH (RBC) [Entitic mass] 29.9 pg Normal 26.0-34.0 [facility] Comment on above: Performed By: #### L [id number], [id number] ####Director Consumer: SHAHLA WARREN ([phone])[facility] ([facility])[address] [place] [address] MCHC 32.8 % Normal 30.5-36.0 [facility] Comment on above: Performed By: #### L [id number], [id number] ####Director Consumer: SHAHLA WARREN ([phone])[facility] ([facility])[address] [place] [address] MCV (RBC) [Entitic vol] 91.2 fL Normal 77.0-99.0 [facility] Comment on above: Performed By: #### L [id number], [id number] ####Director Consumer: SHAHLA WARREN ([phone])[facility])[address] [place] [address] Platelet mean volume (Bld) [Entitic vol] 9.8 fL Normal 9.0-12.7 [facility] Comment on above: Performed By: #### L [id number], [id number] ####Director Consumer: SHAHLA WARREN ([phone])[facility] ([facility])[address] [place] [address] Platelets (Bld) [#/Vol] 227 10*3/uL Normal 140-440 [facility] Comment on above: Performed By: #### L [id number], [id number] ####Director Consumer: SHAHLA WARREN ([phone])[facility] ([facility])[address] [place] [address] RBC (Bld) [#/Vol] 3.31 10*6/uL Low 4.40-5.90 [facility] Comment on above: Performed By: #### L [id number], [id number] ####Director Consumer: SHAHLA WARREN ([phone])[facility])[address] [place] [address] WBC (Bld) [#/Vol] 18.2 10*3/uL High 3.6-10.7 [facility] Comment on above: Performed By: #### L [id number], [id number] ####Director Consumer: SHAHLA WARREN ([phone])[facility])[address] [place] [address] Calcium.ionized [Moles/Vol]o n 01-02-2025 Calcium.ionized (Bld) [Moles/Vol] 4.8 mg/dL 4.30 - 5.20 mg/dL [facility] Interpretation and review of laboratory results Normal [facility] PH, IONIZED CALCIUM 7.32 7.31 - 7.46 [facility] HEPATIC FUNCTION PANELon Albumin [Mass/Vol] 2.6 g/dL Low 3.5-5.0 [facility] Comment on above: Performed By: #### L [id number], [id number], [id number], [id number] ####Director Consumer: SHAHLA WARREN ([phone])[facility])[address] [place] [address] ALP [Catalytic activity/Vol] 102 U/L Normal 40-150 [facility] Comment on above: Performed By: #### L [id number], [id number], [id number], [id number] ####Director Consumer: SHAHLA WARREN ([phone])[facility])[address] [place] [address] ALT [Catalytic activity/Vol] 129 U/L High <40 [facility] Comment on above: Performed By: #### L [id number], [id number], [id number], [id number] ####Director Consumer: SHAHLA WARREN ([phone])[facility])[address] [place] [address] AST [Catalytic activity/Vol] 75 U/L High <34 [facility] Comment on above: Performed By: #### L [id number], [id number], [id number], [id number] ####Director Consumer: SHAHLA WARREN ([phone])[facility])[address] [place] [address] Bilirubin [Mass/Vol] 0.5 mg/dL Normal <1.2 [facility] Comment on above: Performed By: #### L [id number], [id number], [id number], [id number] ####Director Consumer: SHAHLA WARREN ([phone])[facility])[address] [place] [address] Bilirubin.indirect [Mass/Vol] 0.2 mg/dL Normal <0.5 [facility] Comment on above: Performed By: #### L [id number], [id number], [id number], [id number] ####Director Consumer: SHAHLA WARREN ([phone])[facility])[address] [place] [address] Protein [Mass/Vol] 7.0 g/dL Normal 6.4-8.3 [facility] Comment on above: Result Comment: Seru m protein values are higher than plasma values. Samples from recumbent persons are lower by up to 0.5 g/dL as compared to ambulatory persons. After 60 years values are lower by up to 0.2 g/dL. Performed By: #### L [id number], [id number], [id number], [id number] ####Director Consumer: SHAHLA WARREN ([phone])[facility])[address] [place] [address] Hepatic function 2000 panelo n 01-02-2025 Albumin [Mass/Vol] 2.6 g/dL Low 3.5 - 5.0 g/dL [facility] ALP [Catalytic activity/Vol] 102 U/L 40 - 150 U/L [facility] ALT [Catalytic activity/Vol] 129 U/L High NINF - 40 U/L [facility] AST [Catalytic activity/Vol] 75 U/L High NINF - 34 U/L [facility] Bilirubin [Mass/Vol] 0.5 mg/dL [facility]/dL [facility] Bilirubin.conjugated [Mass/Vol] 0.2 mg/dL [facility] - 0.5 mg/dL [facility] Interpretation and review of laboratory results Abnormal [facility] Protein [Mass/Vol] 7 g/dL 6.4 - 8.3 g/dL [facility] Laboratory - Chemistry and C hemistry - challengeon 01-02-2025 Glucose [Mass/Vol] 107 mg/dL High 70 - 100 mg/dL [facility] Glucose [Mass/Vol] 115 mg/dL High 70 - 100 mg/dL [facility] Base excess Calc (Bld) [Moles/Vol] -3.6000 mmol/L Low -3.0 - 3.0 mmol/L [facility] CO2 (Bld) [Partial pressure] 29.4 mm[Hg] Low - PINF [facility] CO2 [Moles/Vol] 20.5 mmol/L Low 23.0 - 27.0 mmol/L [facility] HCO3 (Bld) [Moles/Vol] 19.6 mmol/L Low 21.0 - 25.0 mmol/L [facility] Oxygen (Bld) [Partial pressure] 74.3 mm[Hg] Low [facility] pH (Bld) 7.441 [pH] 7.350 - 7.450 [facility] Glucose [Mass/Vol] 135 mg/dL High 70 - 100 mg/dL [facility] Procalcitonin [Mass/Vol] 0.6 ng/mL High [facility] - 0.07 ng/mL [facility] Magnesium [Mass/Vol] 2.2 mg/dL 1.6 - 2 .6 mg/dL [facility] Base excess Calc (Bld) [Moles/Vol] -4.4000 mmol/L Low -3.0 - 3.0 mmol/L [facility] CO2 (Bld) [Partial pressure] 31.4 mm[Hg] Low - PINF [facility] CO2 [Moles/Vol] 20.2 mmol/L Low 23.0 - 27.0 mmol/L [facility] HCO3 (Bld) [Moles/Vol] 19.3 mmol/L Low 21.0 - 25.0 mmol/L [facility] Oxygen (Bld) [Partial pressure] 100.7 mm[Hg] High [facility] pH (Bld) 7.406 [pH] 7.350 - 7.450 [facility] [place] Glucose [Mass/Vol] 144 mg/dL High 70 - 100 mg/dL [facility] Laboratory - Hematology and Cell countson 01-02-2025 Hemoglobin (Bld) [Mass/Vol] 11.5 g/dL Screen only [facility] [place] Band form neutrophils (Bld) [#/Vol] 2.5 10*3/uL High NINF - 0.0 10*3/uL [facility] [place] Band form neutrophils/100 WBC (Bld) 14 % High NINF - 0 % [facility] [place] Lymphocytes (Bld) [#/Vol] 1.1 10*3/uL 1.0 - 4.3 10*3/uL [facility] [place] Lymphocytes/100 WBC (Bld) 6 % Low 15 - 45 % [facility] [place] Monocytes (Bld) [#/Vol] 0.5 10*3/uL 0.0 - 0.9 10*3/uL [facility] [place] Monocytes/100 WBC (Bld) 3 % Low 5 - 13 % [facility] [place] Neutrophils (Bld) [#/Vol] 16.6 10*3/uL High 1.8 - 7.5 10*3/uL [facility] [place] Poikilocytosis LM Ql (Bld) Slight Abnormal (none) [facility] [place] Polychromasia LM Ql (Bld) Slight Abnormal (none) [facility] RBC morphology finding Nom (Bld) abnormal [facility] Segmented neutrophils/100 WBC (Bld) 77 % 38 - 82 % [facility] [place] Target cells LM Ql (Bld) Slight Abnormal (none) [facility] [place] Hemoglobin (Bld) [Mass/Vol] 12.7 g/dL Screen only [facility] [place] MAGNESIUMon 01-02-2025 Magnesium [Mass/Vol] 2.2 mg/dL Normal 1.6-2.6 [facility] Comment on above: Result Comment: DARIO Wylie COMMENTS:Higher values can be expected in females during menses. Performed By: #### L [id number], [id number], [id number], [id number] ####Director Consumer: SHAHLA WARREN ([phone])[facility] ([facility])[address] [place] [address] MANUAL DIFFERENTIAL (CELLAVI ARLEEN)on 01-02-2025 BAND NEUTROPHILS TOTAL PER COUNTED LEUKOCYTES BY MANUAL COUNT 14 Normal [facility] Comment on above: Performed By: #### L [id number], [id number] ####Director Consumer: SHAHLA WARREN ([phone])[facility] ([facility])[address] [place] [address] BANDS (10*3/UL) IN BLOOD-CELLAVISION 2.5 10*3/uL High <=0.0 [facility] Comment on above: Performed By: #### L [id number], [id number] ####Director Consumer: SHAHLA WARREN ([phone])[facility] ([facility])[address] [place] [address] [place] BASOPHILS TOTAL PER COUNTED LEUKOCYTES BY MANUAL COUNT [facility] Comment on above: Performed By: #### L [id number], [id number] ####Director Consumer: SHAHLA WARREN ([phone])[facility] ([facility])[address] [place] [address] [place] BLASTS TOTAL PER COUNTED LEUKOCYTES BY MANUAL COUNT [facility] Comment on above: Performed By: #### L [id number], [id number] ####Director Consumer: SHAHLA WARREN ([phone])[facility] ([facility])[address] [place] [address] EOSINOPHILS TOTAL PER COUNTED LEUKOCYTES BY MANUAL COUNT [facility] Comment on above: Performed By: #### L [id number], [id number] ####Director Consumer: SHAHLA WARREN ([phone])[facility] ([facility])[address] [place] [address] [place] LYMPHOCYTES (10*3/UL) IN BLOOD-CELLAVISION 1.1 10*3/uL Normal 1.0-4.3 [facility] Comment on above: Performed By: #### L [id number], [id number] ####Director Consumer: SHAHLA WARREN ([phone])[facility] ([facility])[address] [place] [address] [place] LYMPHOCYTES TOTAL PER COUNTED LEUKOCYTES BY MANUAL COUNT 6 Normal [facility] Comment on above: Performed By: #### L [id number], [id number] ####Director Consumer: SHAHLA WARREN ([phone])[facility] ([facility])[address] [place] [address] [place] LYMPHOCYTES/100 LEUKOCYTES IN BLOOD-CELLAVISION 6 % Low 15-45 [facility] Comment on above: Performed By: #### L [id number], [id number] ####Director Consumer: SHAHLA WARREN ([phone])[facility] ([facility])[address] [place] [address] [place] METAMYELOCYTES TOTAL PER COUNTED LEUKOCYTES BY MANUAL COUNT Normal [facility] Comment on above: Performed By: #### L [id number], [id number] ####Director Consumer: SHAHLA WARREN ([phone])[facility] ([facility])[address] [place] [address] [place] MONOCYTES (10*3/UL) IN BLOOD-CELLAVISION 0.5 10*3/uL Normal 0.0-0.9 [facility] Comment on above: Performed By: #### L [id number], [id number] ####Director Consumer: SHAHLA WARREN ([phone])[facility] ([facility])[address] [place] [address] [place] MONOCYTES TOTAL PER COUNTED LEUKOCYTES BY MANUAL COUNT 3 Normal [facility] Comment on above: Performed By: #### L [id number], [id number] ####Director Consumer: SHAHLA WARREN ([phone])[facility] ([facility])[address] [place] [address] [place] MONOCYTES/100 LEUKOCYTES IN BLOOD-LEWIS 3 % Low 5-13 [facility] Comment on above: Performed By: #### L [id number], [id number] ####Director Consumer: SHAHLA WARREN ([phone])[facility] ([facility])[address] [place] [address] [place] MYELOCYTES COUNTED BY MANUAL COUNT Normal [facility] Comment on above: Performed By: #### L [id number], [id number] ####Director Consumer: SHAHLA WARREN ([phone])[facility] ([facility])[address] [place] [address] [place] NEUTROPHILS BAND FORM/100 LEUKOCYTES IN BLOOD-CELLAVISI 14 % High <=0 [facility] Comment on above: Performed By: #### L [id number], [id number] ####Director Consumer: SHAHLA WARREN ([phone])[facility] ([facility])[address] [place] [address] [place] NEUTROPHILS TOTAL PER COUNTED LEUKOCYTES BY MANUAL COUNT 77 Normal [facility] Comment on above: Performed By: #### L [id number], [id number] ####Director Consumer: SHAHLA WARREN ([phone])[facility] ([facility])[address] [place] [address] POIKILOCYTOSIS (PRESENCE) IN BLOOD BY LIGHT MICROSCOPY Slight Abnormal (none) [facility] Comment on above: Performed By: #### L [id number], [id number] ####Director Consumer: SHAHLA WARREN ([phone])[facility] ([facility])[address] [place] [address] POLYCHROMASIA IN BLOOD BY LIGHT MICROSCOPY Slight Abnormal (none) [facility] Comment on above: Performed By: #### L [id number], [id number] ####Director Consumer: SHAHLA WARREN ([phone])[facility] ([facility])[address] [place] [address] PROMYELOCYTES TOTAL PER COUNTED LEUKOCYTES BY MANUAL COUNT Normal [facility] Comment on above: Performed By: #### L [id number], [id number] ####Director Consumer: SHAHLA WARREN ([phone])[facility] ([facility])[address] [place] [address] RBC MORPHOLOGY IN BLOOD abnormal Normal [facility] Comment on above: Performed By: #### L [id number], [id number] ####Director Consumer: SHAHLA WARREN ([phone])[facility] ([facility])[address] [place] [address] SEGMENTED NEUTROPHILS (10*3/UL) IN BLOOD-CELLAVISION 16.6 10*3/uL High 1.8-7.5 [facility] Comment on above: Performed By: #### L [id number], [id number] ####Director Consumer: SHAHLA WARREN ([phone])[facility])[address] [place] [address] [place] SEGMENTED NEUTROPHILS/100 LEUKOCYTES-CE 77 % Normal 38-82 [facility] Comment on above: Performed By: #### L [id number], [id number] ####Director Consumer: SHAHLA WARREN ([phone])[facility] ([facility])[address] [place] [address] TARGET CELLS IN BLOOD BY LIGHT MICROSCOPY Slight Abnormal (none) [facility] Comment on above: Performed By: #### L [id number], [id number] ####Director Consumer: SHAHLA WARREN ([phone])[facility] ([facility])[address] [place] [address] UNCLASSIFIED CELLS TOTAL PER COUNTED LEUKOCYTES BY MANUAL COUNT Normal [facility] Comment on above: Performed By: #### L [id number], [id number] ####Director Consumer: SHAHLA WARREN ([phone])[facility] ([facility])[address] [place] [address] VARIANT LYMPHOCYTES TOTAL PER COUNTED LEUKOCYTES BY MANUAL COUNT Normal [facility] Comment on above: Performed By: #### L [id number], [id number] ####Director Consumer: SHAHLA WARREN ([phone])[facility] ([facility])[address] [place] [address] Magnesium [Mass/Vol]on 01-02 [facility] No Panel Informationon 01-02 Interpretation and review of laboratory results Abnormal [facility] Interpretation and review of laboratory results Abnormal [facility] Amount Of Oxygen 45 [facility] Interpretation and review of laboratory results Abnormal [facility] Source Of Oxygen Ventilator [facility] Interpretation and review of laboratory results Abnormal [facility] Interpretation and review of laboratory results Normal [facility] Bands Manual 14 [facility] Interpretation and review of laboratory results Abnormal [facility] Lymphocytes Manual 6 [facility] Monocytes Manual 3 [facility] alth Neutrophils Manual 77 [facility] Amount Of Oxygen 45 [facility] Interpretation and review of laboratory results Abnormal [facility] Source Of Oxygen Ventilator [facility] Interpretation and review of laboratory results Abnormal [facility] PHOSPHORUSon 01-02-2025 Phosphate [Mass/Vol] 3.5 mg/dL Normal 2.3-4.7 [facility] Comment on above: Performed By: #### L [id number], [id number], [id number], [id number] ####Director Consumer: SHAHLA WARREN ([phone])[facility] ([facility])[address] [place] [address] [place] PROCALCITONIN TESTon 025 PROCALCITONIN 0.60 ng/mL High <0.07 [facility] Comment on above: Result Comment: ORDE R COMMENTS:PCT <0.50 = Low risk of severe sepsis and/or septic shock.PCT >2.00 = High risk of severe sepsis and/or septic shock. Performed By: #### L [id number], [id number], [id number], [id number] ####Director Consumer: SHAHLA WARREN ([phone])[facility] ([facility])[address] [place] [address] Phosphate [Moles/Vol]on 12-22 Phosphate [Mass/Vol] 3.5 mg/dL 2.3 - 4 .7 mg/dL [facility] Procalcitonin [Mass/Vol]on 01-02-2025 Interpretation and review of laboratory results Abnormal [facility] Progress Noteon 01-02-2025 Progress Note PHYSICAL THERAPY [facility] Name/MRN: Chelsea Cole ([id number]) Date: 01/02/2025 Hold Note Pt was extubated. Per RN, pt now with increased WOB. Will hold PT, re-attempt as able. Luis Sucaldito, PT Normal [facility] Progress Note Normal [facility] Progress Note Normal [facility] XR CHEST 1 VIEWon 01-02-2025 XR CHEST 1 VIEW Normal [facility] XR Chest Single viewon 01-02 [facility] EM[facility]ENCY [facility]PART[facility] RADIOLOGY SYSTEM [facility] EMERGENCY DEPARTMENT RADIOLOGY SYSTEM [facility] Radiology Study observation (narrative) [facility] 30on 01-01-2025 30 Normal [facility] BASIC METABOLIC PANELon 12-22 Anion gap [Moles/Vol] 10 mmol/L Normal 3-13 [facility] Comment on above: Performed By: #### L [id number] ####Director Consumer: SHAHLA WARREN ([phone])[facility] ([facility])[address] [place] [address] Calcium [Mass/Vol] 8.6 mg/dL Normal 8.4-10.2 [facility] Comment on above: Performed By: #### L [id number] ####Director Consumer: SHAHLA WARREN ([phone])[facility] [place] [address] Chloride [Moles/Vol] 123 mmol/L High 98-107 [facility] Comment on above: Performed By: #### L [id number] ####Director Consumer: SHAHLA WARREN ([phone])[facility] [place] [address] CO2 [Moles/Vol] 14 mmol/L Low 22-29 [facility] Comment on above: Performed By: #### L [id number] ####Director Consumer: SHAHLA WARREN ([phone])[facility] ([facility])[address] [place] [address] Creatinine [Mass/Vol] 0.94 mg/dL Normal 0.72-1.25 [facility] Comment on above: Performed By: #### L [id number] ####Director Consumer: SHAHLA WARREN ([phone])[facility] ([facility])[address] [place] [address] GLOMERULAR FILTRATION RATE ML/MIN/1.73 SQ M.PREDICTED >90.0 Normal >60.0 [facility] Comment on above: Result Comment: Calc ulation based on the Chronic Kidney Disease Epidemiology Collaboration (CKD-EPI) equation refit without adjustment for race Performed By: #### L [id number] ####Director Consumer: SHAHLA WARREN ([phone])[facility] [place] [address] [place] Glucose [Mass/Vol] 161 mg/dL High 74-100 [facility] Comment on above: Performed By: #### L [id number] ####Director Consumer: SHAHLA WARREN ([phone])[facility] ([facility])[address] [place] [address] [place] Potassium [Moles/Vol] 4.0 mmol/L Normal 3.5-5.1 [facility] Comment on above: Result Comment: [facility] potassium values may be up to 0.5 mmol/L lower than serum values. Performed By: #### L [id number] ####Director Consumer: SHAHLA WARREN ([phone])[facility] ([facility])[address] [place] [address] Sodium [Moles/Vol] 147 mmol/L High 136-145 [facility] Comment on above: Performed By: #### L [id number] ####Director Consumer: SHAHLA WARREN ([phone])[facility] [place] [address] Urea nitrogen [Mass/Vol] 29 mg/dL High 8-21 [facility] Comment on above: Performed By: #### L [id number] ####Director Consumer: SHAHLA WARREN ([phone])[facility])[address] [place] [address] Anion gap [Moles/Vol] 12 mmol/L Normal 3-13 [facility] Comment on above: Performed By: #### L [id number], LAB15 ####Director Consumer: SHAHLA WARREN ([phone])[facility])[address] [place] [address] Calcium [Mass/Vol] 9.3 mg/dL Normal 8.4-10.2 [facility] Comment on above: Performed By: #### L AB99, LAB15 ####Director Consumer: SHAHLA WARREN ([phone])[facility] ([facility])[address] [place] [address] [place] Chloride [Moles/Vol] 121 mmol/L High 98-107 [facility] Comment on above: Performed By: #### L AB99, LAB15 ####Director Consumer: SHAHLA WARREN ([phone])[facility] ([facility])[address] [place] [address] [place] CO2 [Moles/Vol] 17 mmol/L Low 22-29 [facility] Comment on above: Performed By: #### L AB99, LAB15 ####Director Consumer: SHAHLA WARREN ([phone])[facility] ([facility])[address] [place] [address] [place] Creatinine [Mass/Vol] 1.05 mg/dL Normal 0.72-1.25 [facility] Comment on above: Performed By: #### L AB99, LAB15 ####Director Consumer: SHAHLA WARREN ([phone])[facility] ([facility])[address] [place] [address] [place] GLOMERULAR FILTRATION RATE ML/MIN/1.73 SQ M.PREDICTED >90.0 Normal >60.0 [facility] Comment on above: Result Comment: Calc ulation based on the Chronic Kidney Disease Epidemiology Collaboration (CKD-EPI) equation refit without adjustment for race Performed By: #### L AB99, LAB15 ####Director Consumer: SHAHLA WARREN ([phone])[facility] ([facility])[address] [place] [address] [place] Glucose [Mass/Vol] 134 mg/dL High 74-100 [facility] Comment on above: Performed By: #### L AB99, LAB15 ####Director Consumer: SHAHLA WARREN ([phone])[facility])[address] [place] [address] [place] Potassium [Moles/Vol] 3.5 mmol/L Normal 3.5-5.1 [facility] Comment on above: Result Comment: [facility] potassium values may be up to 0.5 mmol/L lower than serum values. Performed By: #### L AB99, LAB15 ####Director Consumer: SHAHLA WARREN ([phone])[facility] [place] [address] [place] Sodium [Moles/Vol] 150 mmol/L High 136-145 [facility] Comment on above: Performed By: #### L AB99, LAB15 ####Director Consumer: SHAHLA WARREN ([phone])[facility] [place] [address] [place] Urea nitrogen [Mass/Vol] 29 mg/dL High 8-21 [facility] Comment on above: Performed By: #### L AB99, LAB15 ####Director Consumer: SHAHLA WARREN ([phone])[facility])[address] [place] [address] Anion gap [Moles/Vol] 11 mmol/L Normal 3-13 [facility] Comment on above: Performed By: #### L AB15 ####Director Consumer: SHAHLA WARREN ([phone])[facility])[address] [place] [address] Calcium [Mass/Vol] 8.7 mg/dL Normal 8.4-10.2 [facility] Comment on above: Performed By: #### L AB15 ####Director Consumer: SHAHLA WARREN ([phone])[facility])[address] [place] [address] Chloride [Moles/Vol] 124 mmol/L High 98-107 [facility] Comment on above: Performed By: #### L AB15 ####Director Consumer: SHAHLA WARREN ([phone])[facility] ([facility])[address] [place] [address] CO2 [Moles/Vol] 18 mmol/L Low 22-29 [facility] Comment on above: Performed By: #### L AB15 ####Director Consumer: SHAHLA WARREN ([phone])[facility] ([facility])[address] [place] [address] Creatinine [Mass/Vol] 0.92 mg/dL Normal 0.72-1.25 [facility] Comment on above: Performed By: #### L AB15 ####Director Consumer: SHAHLA WARREN ([phone])[facility] ([facility])[address] [place] [address] GLOMERULAR FILTRATION RATE ML/MIN/1.73 SQ M.PREDICTED >90.0 Normal >60.0 [facility] Comment on above: Result Comment: Calc ulation based on the Chronic Kidney Disease Epidemiology Collaboration (CKD-EPI) equation refit without adjustment for race Performed By: #### L AB15 ####Director Consumer: SHAHLA WARREN ([phone])[facility] [place] [address] Glucose [Mass/Vol] 124 mg/dL High 74-100 [facility] Comment on above: Performed By: #### L AB15 ####Director Consumer: SHAHLA WARREN ([phone])[facility] ([facility])[address] [place] [address] Potassium [Moles/Vol] 3.6 mmol/L Normal 3.5-5.1 [facility] Comment on above: Result Comment: [facility] potassium values may be up to 0.5 mmol/L lower than serum values. Performed By: #### L AB15 ####Director Consumer: SHAHLA WARREN ([phone])[facility] ([facility])[address] [place] [address] Sodium [Moles/Vol] 153 mmol/L High 136-145 [facility] Comment on above: Performed By: #### L AB15 ####Director Consumer: SHAHLA WARREN ([phone])[facility] ([facility])[address] [place] [address] Urea nitrogen [Mass/Vol] 30 mg/dL High 8-21 [facility] Comment on above: Performed By: #### L AB15 ####Director Consumer: SHAHLA WARREN ([phone])[facility] ([facility])[address] [place] [address] BLOOD GAS ARTERIALon 025 AMOUNT OF OXYGEN 55 Normal [facility] Comment on above: Order Comment: While on ventilator Performed By: #### L [id number] ####Director Consumer: SHAHLA WARREN ([phone])[facility] ([facility])[address] [place] [address] Base excess Calc (Bld) [Moles/Vol] -4.8000 mmol/L Low -3.0-3.0 [facility] Comment on above: Order Comment: While on ventilator Performed By: #### L [id number] ####Director Consumer: SHAHLA WARREN ([phone])[facility] [place] [address] CO2 [Moles/Vol] 19.6 mmol/L Low 23.0-27.0 [facility] Comment on above: Order Comment: While on ventilator Performed By: #### L AB76 ####Director Consumer: SHAHLA WARREN ([phone])[facility] ([facility])[address] [place] [address] HCO3 (Bld) [Moles/Vol] 18.7 mmol/L Low 21.0-25.0 [facility] Comment on above: Order Comment: While on ventilator Performed By: #### L [id number] ####Director Consumer: SHAHLA WARREN ([phone])[facility] [place] [address] Hemoglobin (Bld) [Mass/Vol] 12.1 g/dL Normal Screen only [facility] Comment on above: Order Comment: While on ventilator Performed By: #### L AB76 ####Director Consumer: SHAHLA WARREN ([phone])[facility] ([facility])[address] [place] [address] OXYGEN SATURATION (%) IN ARTERIAL BLOOD 98.7 % Normal 95.0-100.0 [facility] Comment on above: Order Comment: While on ventilator Performed By: #### L AB76 ####Director Consumer: SHAHLA WARREN ([phone])[facility])12 [place] [address] PCO2 ARTERIAL 30.0 mm Hg Low >35.0-<45.0 [facility] Comment on above: Order Comment: While on ventilator Performed By: #### L [id number] ####Director Consumer: SHAHLA WARREN ([phone])[facility] [place] [address] PH ARTERIAL 7.412 Normal 7.350-7.450 [facility] Comment on above: Order Comment: While on ventilator Performed By: #### L [id number] ####Director Consumer: SHAHLA WARREN ([phone])[facility] ([facility])[address] [place] [address] PO2 ARTERIAL 222.8 mm Hg High 80.0-100.0 [facility] Comment on above: Order Comment: While on ventilator Performed By: #### L [id number] ####Director Consumer: SHAHLA WARREN ([phone])[facility] ([facility])[address] [place] [address] SOURCE OF OXYGEN Ventilator Normal [facility] Comment on above: Order Comment: While on ventilator Performed By: #### L [id number] ####Director Consumer: SHAHLA WARREN ([phone])[facility] [place] [address] AMOUNT OF OXYGEN 55 Normal [facility] Comment on above: Order Comment: While on ventilator Performed By: #### L [id number] ####Director Consumer: SHAHLA WARREN ([phone])[facility])[address] [place] [address] Base excess Calc (Bld) [Moles/Vol] -2.6000 mmol/L Normal -3.0-3.0 [facility] Comment on above: Order Comment: While on ventilator Performed By: #### L [id number] ####Director Consumer: SHAHLA WARREN ([phone])[facility])[address] [place] [address] CO2 [Moles/Vol] 21.3 mmol/L Low 23.0-27.0 [facility] Comment on above: Order Comment: While on ventilator Performed By: #### L [id number] ####Director Consumer: SHAHLA WARREN ([phone])[facility])[address] [place] [address] [place] HCO3 (Bld) [Moles/Vol] 20.4 mmol/L Low 21.0-25.0 [facility] Comment on above: Order Comment: While on ventilator Performed By: #### L [id number] ####Director Consumer: SHAHLA WARREN ([phone])[facility])[address] [place] [address] [place] Hemoglobin (Bld) [Mass/Vol] 11.7 g/dL Normal Screen only [facility] Comment on above: Order Comment: While on ventilator Performed By: #### L [id number] ####Director Consumer: SHAHLA WARREN ([phone])[facility] ([facility])[address] [place] [address] OXYGEN SATURATION (%) IN ARTERIAL BLOOD 96.2 % Normal 95.0-100.0 [facility] Comment on above: Order Comment: While on ventilator Performed By: #### L [id number] ####Director Consumer: SHAHLA WARREN ([phone])[facility] ([facility])[address] [place] [address] PCO2 ARTERIAL 29.8 mm Hg Low >35.0-<45.0 [facility] Comment on above: Order Comment: While on ventilator Performed By: #### L [id number] ####Director Consumer: SHAHLA WARREN ([phone])[facility] [place] [address] PH ARTERIAL 7.453 High 7.350-7.450 [facility] Comment on above: Order Comment: While on ventilator Performed By: #### L [id number] ####Director Consumer: SHAHLA WARREN ([phone])[facility] [place] [address] PO2 ARTERIAL 87.1 mm Hg Normal 80.0-100.0 [facility] Comment on above: Order Comment: While on ventilator Performed By: #### L [id number] ####Director Consumer: SHAHLA WARREN ([phone])[facility])[address] [place] [address] SOURCE OF OXYGEN Ventilator Normal [facility] Comment on above: Order Comment: While on ventilator Performed By: #### L [id number] ####Director Consumer: SHAHLA WARREN ([phone])[facility] ([facility])[address] [place] [address] AMOUNT OF OXYGEN 50 Normal [facility] Comment on above: Order Comment: While on ventilator Performed By: #### L [id number] ####Director Consumer: SHAHLA WARREN ([phone])[facility] [place] [address] Base excess Calc (Bld) [Moles/Vol] -1.3000 mmol/L Normal -3.0-3.0 [facility] Comment on above: Order Comment: While on ventilator Performed By: #### L [id number] ####Director Consumer: SHAHLA WARREN ([phone])[facility] [place] [address] CO2 [Moles/Vol] 23.2 mmol/L Normal 23.0-27.0 [facility] Comment on above: Order Comment: While on ventilator Performed By: #### L [id number] ####Director Consumer: SHAHLA WARREN ([phone])[facility])[address] [place] [address] HCO3 (Bld) [Moles/Vol] 22.2 mmol/L Normal 21.0-25.0 [facility] Comment on above: Order Comment: While on ventilator Performed By: #### L [id number] ####Director Consumer: SHAHLA WARREN ([phone])[facility])[address] [place] [address] Hemoglobin (Bld) [Mass/Vol] 10.3 g/dL Normal Screen only [facility] Comment on above: Order Comment: While on ventilator Performed By: #### L [id number] ####Director Consumer: SHAHLA WARREN ([phone])[facility])[address] [place] [address] OXYGEN SATURATION (%) IN ARTERIAL BLOOD 93.3 % Low 95.0-100.0 [facility] Comment on above: Order Comment: While on ventilator Performed By: #### L [id number] ####Director Consumer: SHAHLA WARREN ([phone])[facility])[address] [place] [address] PCO2 ARTERIAL 33.0 mm Hg Low >35.0-<45.0 [facility] Comment on above: Order Comment: While on ventilator Performed By: #### L [id number] ####Director Consumer: SHAHLA WARREN ([phone])[facility])[address] [place] [address] PH ARTERIAL 7.446 Normal 7.350-7.450 [facility] Comment on above: Order Comment: While on ventilator Performed By: #### L [id number] ####Director Consumer: SHAHLA WARREN ([phone])[facility])[address] [place] [address] PO2 ARTERIAL 72.0 mm Hg Low 80.0-100.0 [facility] Comment on above: Order Comment: While on ventilator Performed By: #### L [id number] ####Director Consumer: SHAHLA WARREN ([phone])[facility])[address] [place] [address] SOURCE OF OXYGEN Ventilator Normal [facility] Comment on above: Order Comment: While on ventilator Performed By: #### L [id number] ####Director Consumer: SHAHLA WARREN ([phone])[facility])[address] [place] [address] Basic metabolic 1998 panelon 01-01-2025 Anion gap [Moles/Vol] 10 mmol/L 3 - 13 mmol/L [facility] Calcium [Mass/Vol] 8.6 mg/dL 8.4 - 10. 2 mg/dL [facility] Chloride [Moles/Vol] 123 mmol/L High 98 - 10 7 mmol/L [facility] CO2 [Moles/Vol] 14 mmol/L Low 22 - 29 mmol/L [facility] Creatinine [Mass/Vol] 0.94 mg/dL 0.72 - 1.25 mg/dL [facility] GFR/1.73 sq M.predicted (S/P/Bld) [Vol rate/Area] - PINF [facility] Glucose [Mass/Vol] 161 mg/dL High 74 - 100 mg/dL [facility] Interpretation and review of laboratory results Abnormal [facility] Potassium [Moles/Vol] 4 mmol/L 3.5 - 5.1 mmol/L [facility] Sodium [Moles/Vol] 147 mmol/L High 136 - 145 mmol/L [facility] Urea nitrogen [Mass/Vol] 29 mg/dL High 8 - 21 mg/dL [facility] Anion gap [Moles/Vol] 12 mmol/L 3 - 13 mmol/L [facility] Calcium [Mass/Vol] 9.3 mg/dL 8.4 - 10. 2 mg/dL [facility] Chloride [Moles/Vol] 121 mmol/L High 98 - 10 7 mmol/L [facility] CO2 [Moles/Vol] 17 mmol/L Low 22 - 29 mmol/L [facility] Creatinine [Mass/Vol] 1.05 mg/dL 0.72 - 1.25 mg/dL [facility] GFR/1.73 sq M.predicted (S/P/Bld) [Vol rate/Area] - PINF [facility] Glucose [Mass/Vol] 134 mg/dL High 74 - 100 mg/dL [facility] Interpretation and review of laboratory results Abnormal [facility] Potassium [Moles/Vol] 3.5 mmol/L 3.5 - 5.1 mmol/L [facility] Sodium [Moles/Vol] 150 mmol/L High 136 - 145 mmol/L [facility] Urea nitrogen [Mass/Vol] 29 mg/dL High 8 - 21 mg/dL [facility] Anion gap [Moles/Vol] 11 mmol/L 3 - 13 mmol/L [facility] Calcium [Mass/Vol] 8.7 mg/dL 8.4 - 10. 2 mg/dL [facility] Chloride [Moles/Vol] 124 mmol/L High 98 - 10 7 mmol/L [facility] CO2 [Moles/Vol] 18 mmol/L Low 22 - 29 mmol/L [facility] Creatinine [Mass/Vol] 0.92 mg/dL 0.72 - 1.25 mg/dL [facility] GFR/1.73 sq M.predicted (S/P/Bld) [Vol rate/Area] - PINF [facility] Glucose [Mass/Vol] 124 mg/dL High 74 - 100 mg/dL [facility] Interpretation and review of laboratory results Abnormal [facility] Potassium [Moles/Vol] 3.6 mmol/L 3.5 - 5.1 mmol/L [facility] Sodium [Moles/Vol] 153 mmol/L High 136 - 145 mmol/L [facility] Urea nitrogen [Mass/Vol] 30 mg/dL High 8 - 21 mg/dL [facility] CALCIUM, IONIZEDon CALCIUM IONIZED 4.50 mg/dL Normal 4.30-5.20 [facility] Comment on above: Performed By: #### L [id number] ####Director Consumer: SHAHLA WARREN ([phone])[facility] ([facility])[address] [place] [address] PH, IONIZED CALCIUM 7.48 High 7.31-7.46 [facility] Comment on above: Performed By: #### L AB54 ####Director Consumer: SHAHLA WARREN ([phone])[facility] ([facility])[address] [place] [address] CBC W Auto Differential pane l (Bld)on 01-01-2025 Erythrocyte distribution width (RBC) [Ratio] 15.1 % High 11.5 - 15.0 % [facility] Hematocrit (Bld) [Volume fraction] 30.6 % Low 40.0 - 52.0 % [facility] Hemoglobin (Bld) [Mass/Vol] 9.8 g/dL Low 13.0 - 18.0 g/dL [facility] Interpretation and review of laboratory results Abnormal [facility] MCH (RBC) [Entitic mass] 29.8 pg 26.0 - 34.0 pg [facility] MCHC (RBC) [Mass/Vol] 32 % 30.5 - 36.0 % [facility] MCV (RBC) [Entitic vol] 93 fL 77.0 - 99.0 fL [facility] Platelet mean volume (Bld) [Entitic vol] 9.6 fL 9.0 - 12.7 fL [facility] Platelets (Bld) [#/Vol] 219 10*3/uL 140 - 440 10*3/uL [facility] RBC (Bld) [#/Vol] 3.29 10*6/uL Low 4.40 - 5.9 0 10*6/uL [facility] WBC (Bld) [#/Vol] 15 10*3/uL High 3.6 - 10.7 10*3/uL [facility] CBC WITH AUTO DIFFERENTIALon 01-01-2025 Erythrocyte distribution width (RBC) [Ratio] 15.1 % High 11.5-15.0 [facility] Comment on above: Performed By: #### L [id number], [id number] ####Director Consumer: SHAHLA WARREN ([phone])[address] Hematocrit (Bld) [Volume fraction] 30.6 % Low 40.0-52.0 [facility] Comment on above: Performed By: #### L [id number], [id number] ####Director Consumer: SHAHLA WARREN ([phone])[address] Hemoglobin (Bld) [Mass/Vol] 9.8 g/dL Low 13.0-18.0 [facility] Comment on above: Performed By: #### L [id number], [id number] ####Director Consumer: SHAHLA WARREN ([phone])[address] MCH (RBC) [Entitic mass] 29.8 pg Normal 26.0-34.0 [facility] Comment on above: Performed By: #### L [id number], [id number] ####Director Consumer: SHAHLA WARREN ([phone])[address] MCHC 32.0 % Normal 30.5-36.0 [facility] Comment on above: Performed By: #### L [id number], [id number] ####Director Consumer: SHAHLA WARREN ([phone])[address] MCV (RBC) [Entitic vol] 93.0 fL Normal 77.0-99.0 [facility] Comment on above: Performed By: #### L [id number], [id number] ####Director Consumer: SHAHLA WARREN ([phone])[address] Platelet mean volume (Bld) [Entitic vol] 9.6 fL Normal 9.0-12.7 [facility] Comment on above: Performed By: #### L [id number], [id number] ####Director Consumer: SHAHLA WARREN ([phone])[facility])[address] [place] [address] Platelets (Bld) [#/Vol] 219 10*3/uL Normal 140-440 [facility] Comment on above: Performed By: #### L [id number], [id number] ####Director Consumer: SHAHLA WARREN ([phone])[facility] ([facility])[address] [place] [address] RBC (Bld) [#/Vol] 3.29 10*6/uL Low 4.40-5.90 [facility] Comment on above: Performed By: #### L [id number], [id number] ####Director Consumer: SHAHLA WARREN ([phone])[facility])[address] [place] [address] WBC (Bld) [#/Vol] 15.0 10*3/uL High 3.6-10.7 [facility] Comment on above: Performed By: #### L [id number], [id number] ####Director Consumer: SHAHLA WARREN ([phone])[facility])[address] [place] [address] Calcium.ionized [Moles/Vol]O rdered By: Dave Barnes on 01-01-2025 Calcium.ionized (Bld) [Moles/Vol] 4.5 mg/dL 4.30 - 5.20 mg/dL [facility] Interpretation and review of laboratory results Abnormal [facility] PH, IONIZED CALCIUM 7.48 High 7.31 - 7.46 [facility] ECG 12-LEADon 01-01-2025 ECG 12-LEAD IMPRESSION: Sinus bradycardia Electronically Signed On 01-01-2025 12:18:22 EDT by Chante Robbins [facility] HEPATIC FUNCTION PANELon Albumin [Mass/Vol] 2.6 g/dL Low 3.5-5.0 [facility] Comment on above: Performed By: #### L [id number], [id number], [id number] ####Director Consumer: SHAHLA WARREN ([phone])[facility] ([facility])[address] [place] [address] ALP [Catalytic activity/Vol] 80 U/L Normal 40-150 [facility] Comment on above: Performed By: #### L AB20, [id number], [id number] ####Director Consumer: SHAHLA WARREN ([phone])[facility] ([facility])[address] [place] [address] ALT [Catalytic activity/Vol] 105 U/L High <40 [facility] Comment on above: Performed By: #### L AB20, [id number], [id number] ####Director Consumer: SHAHLA WARREN ([phone])[facility] ([facility])[address] [place] [address] AST [Catalytic activity/Vol] 87 U/L High <34 [facility] Comment on above: Performed By: #### L AB20, [id number], [id number] ####Director Consumer: SHAHLA WARREN ([phone])[facility] ([facility])[address] [place] [address] [place] Bilirubin [Mass/Vol] 0.4 mg/dL Normal <1.2 [facility] Comment on above: Performed By: #### L AB20, [id number], [id number] ####Director Consumer: SHAHLA WARREN ([phone])[facility])[address] [place] [address] [place] Bilirubin.indirect [Mass/Vol] 0.1 mg/dL Normal <0.5 [facility] Comment on above: Performed By: #### L AB20, [id number], [id number] ####Director Consumer: SHAHLA WARREN ([phone])[facility])[address] [place] [address] [place] Protein [Mass/Vol] 6.6 g/dL Normal 6.4-8.3 [facility] Comment on above: Result Comment: Seru m protein values are higher than plasma values. Samples from recumbent persons are lower by up to 0.5 g/dL as compared to ambulatory persons. After 60 years values are lower by up to 0.2 g/dL. Performed By: #### L AB20, [id number], [id number] ####Director Consumer: SHAHLA WARREN ([phone])[facility])[address] [place] [address] Hepatic function 2000 panelo n 01-01-2025 Albumin [Mass/Vol] 2.6 g/dL Low 3.5 - 5.0 g/dL [facility] ALP [Catalytic activity/Vol] 80 U/L 40 - 150 U/L [facility] ALT [Catalytic activity/Vol] 105 U/L High NINF - 40 U/L [facility] AST [Catalytic activity/Vol] 87 U/L High NINF - 34 U/L [facility] Bilirubin [Mass/Vol] 0.4 mg/[facility]/dL [facility] Bilirubin.conjugated [Mass/Vol] 0.1 mg/dL NINF - 0.5 mg/dL [facility] Protein [Mass/Vol] 6.6 g/dL 6.4 - 8.3 g/dL [facility] LIPASEon 01-01-2025 Lipase [Catalytic activity/Vol] 264 U/L High <55 [facility] Comment on above: Performed By: #### L AB99, [id number] ####Director Consumer: SHAHLA WARREN ([phone])[facility] ([facility])[address] [place] [address] Laboratory - Chemistry and C hemistry - challengeon 01-01-2025 Base excess Calc (Bld) [Moles/Vol] -4.8000 mmol/L Low -3.0 - 3.0 mmol/L [facility] CO2 (Bld) [Partial pressure] 30 mm[Hg] Low - PINF [facility] CO2 [Moles/Vol] 19.6 mmol/L Low 23.0 - 27.0 mmol/L [facility] HCO3 (Bld) [Moles/Vol] 18.7 mmol/L Low 21.0 - 25.0 mmol/L [facility] Oxygen (Bld) [Partial pressure] 222.8 mm[Hg] High [facility] pH (Bld) 7.412 [pH] 7.350 - 7.450 [facility] Glucose [Mass/Vol] 146 mg/dL High 70 - 100 mg/dL [facility] Lipase [Catalytic activity/Vol] 264 U/L High NINF - 55 U/L [facility] Glucose [Mass/Vol] 127 mg/dL High 70 - 100 mg/dL [facility] Magnesium [Mass/Vol] 2.3 mg/dL 1.6 - 2 .6 mg/dL [facility] Glucose [Mass/Vol] 115 mg/dL High 70 - 100 mg/dL [facility] Base excess Calc (Bld) [Moles/Vol] -1.3000 mmol/L -3.0 - 3.0 mmol/L [facility] CO2 (Bld) [Partial pressure] 33 mm[Hg] Low - PINF [facility] CO2 [Moles/Vol] 23.2 mmol/L 23.0 - 27.0 mmol/L [facility] HCO3 (Bld) [Moles/Vol] 22.2 mmol/L 21.0 - 25.0 mmol/L [facility] Oxygen (Bld) [Partial pressure] 72 mm[Hg] Low [facility] pH (Bld) 7.446 [pH] 7.350 - 7.450 [facility] Laboratory - Chemistry and C hemistry - challengeOrdered By: Vale Jacob on 01-01-2025 Base excess Calc (Bld) [Moles/Vol] -2.6000 mmol/L -3.0 - 3.0 mmol/L [facility] CO2 (Bld) [Partial pressure] 29.8 mm[Hg] Low - PINF [facility] CO2 [Moles/Vol] 21.3 mmol/L Low 23.0 - 27.0 mmol/L [facility] HCO3 (Bld) [Moles/Vol] 20.4 mmol/L Low 21.0 - 25.0 mmol/L [facility] Oxygen (Bld) [Partial pressure] 87.1 mm[Hg] [facility] pH (Bld) 7.453 [pH] High 7.350 - 7.450 [facility] Laboratory - Hematology and Cell countson 01-01-2025 Hemoglobin (Bld) [Mass/Vol] 12.1 g/dL Screen only [facility] Hemoglobin (Bld) [Mass/Vol] 10.3 g/dL Screen only [facility] Laboratory - Hematology and Cell countsOrdered By: Vale Jacob on 01-01-2025 Hemoglobin (Bld) [Mass/Vol] 11.7 g/dL Screen only [facility] Lipase [Catalytic activity/V ol]on 01-01-2025 Interpretation and review of laboratory results Abnormal [facility] MAGNESIUMon 01-01-2025 Magnesium [Mass/Vol] 2.3 mg/dL Normal 1.6-2.6 [facility] Comment on above: Result Comment: DARIO Wylie COMMENTS:Higher values can be expected in females during menses. Performed By: #### L AB20, [id number], [id number] ####Director Consumer: SHAHLA WARREN ([phone])[facility])[address] [place] [address] MANUAL DIFFERENTIALon 2024 BAND NEUTROPHILS TOTAL PER COUNTED LEUKOCYTES BY MANUAL COUNT 7 Normal [facility] Comment on above: Performed By: #### L [id number], [id number] ####Director Consumer: SHAHLA WARREN ([phone])[facility] ([facility])[address] [place] [address] BANDS 1.1 10*3/uL High <=0.0 [facility] Comment on above: Performed By: #### L [id number], [id number] ####Director Consumer: SHAHLA WARREN ([phone])[facility])[address] [place] [address] CELLS COUNTED TOTAL (#) IN BLOOD 100 Normal [facility] Comment on above: Performed By: #### L [id number], [id number] ####Director Consumer: SHAHLA WARREN ([phone])[facility])[address] [place] [address] DIFFERENTIAL METHOD Manual differential performed Normal [facility] Comment on above: Performed By: #### L [id number], [id number] ####Director Consumer: SHAHLA WARREN ([phone])[facility])[address] [place] [address] LEUKOCYTE MORPHOLOGY FINDING IN BLOOD Normal Normal [facility] Comment on above: Performed By: #### L [id number], [id number] ####Director Consumer: SHAHLA WARREN ([phone])[facility])[address] [place] [address] [place] LEUKOCYTES (10*3/UL) NUCLEATED ERYTHROCYTE ADJUST 15.0 10*3/uL High 3.6-10.7 [facility] Comment on above: Performed By: #### L [id number], [id number] ####Director Consumer: SAHHLA WARREN ([phone])[facility])[address] [place] [address] [place] LYMPHOCYTES (10*3/UL) IN BLOOD BY MANUAL COUNT 2.6 10*3/uL Normal 1.0-4.3 [facility] Comment on above: Performed By: #### L [id number], [id number] ####Director Consumer: SHAHLA WARREN ([phone])[facility])[address] [place] [address] LYMPHOCYTES TOTAL PER COUNTED LEUKOCYTES BY MANUAL COUNT 17 Normal [facility] Comment on above: Performed By: #### L [id number], [id number] ####Director Consumer: SHAHLA WARREN ([phone])[facility])[address] [place] [address] [place] LYMPHOCYTES/100 LEUKOCYTES IN BLOOD BY MANUAL COUNT 17 % Normal 15-45 [facility] Comment on above: Performed By: #### L [id number], [id number] ####Director Consumer: SHAHLA WARREN ([phone])[facility])[address] [place] [address] [place] METAMYELOCYTES (10*3/UL) IN BLOOD BY MANUAL COUNT 0.3 10*3/uL High <=0.0 [facility] Comment on above: Performed By: #### L [id number], [id number] ####Director Consumer: SHAHLA WARREN ([phone])[facility])[address] [place] [address] [place] METAMYELOCYTES TOTAL PER COUNTED LEUKOCYTES BY MANUAL COUNT 2 Normal [facility] Comment on above: Performed By: #### L [id number], [id number] ####Director Consumer: SHAHLA WARREN ([phone])[facility])[address] [place] [address] [place] METAMYELOCYTES/100 LEUKOCYTES IN BLOOD BY MANUAL COUNT 2 % High <=0 [facility] Comment on above: Performed By: #### L [id number], [id number] ####Director Consumer: SHAHLA WARREN ([phone])[facility])[address] [place] [address] [place] NEUTROPHILS (SEGS+BANDS) (10*3/UL) BY MANUAL COUNT 12.2 10*3/uL High 1.8-7.0 [facility] Comment on above: Performed By: #### L [id number], [id number] ####Director Consumer: SHAHLA WARREN ([phone])[facility])[address] [place] [address] NEUTROPHILS BAND FORM/100 LEUKOCYTES IN BLOOD BY MANUAL COUNT 7 % High <=0 [facility] Comment on above: Performed By: #### Prem [id number], [id number] ####Director Consumer: SHAHLA WARREN ([phone])[facility])[address] [place] [address] [place] NEUTROPHILS TOTAL PER COUNTED LEUKOCYTES BY MANUAL COUNT 74 Normal [facility] Comment on above: Performed By: #### L [id number], [id number] ####Director Consumer: SHAHLA WARREN ([phone])[facility])[address] [place] [address] [place] NUCLEATED ERYTHROCYTES/100 LEUKOCYTES IN BLOOD BY MANUAL COUNT 3 % Normal [facility] Comment on above: Performed By: #### L [id number], [id number] ####Director Consumer: SHAHLA WARREN ([phone])[facility])[address] [place] [address] OVALOCYTES PRESENCE IN BLOOD BY LIGHT MICROSCOPY Slight Abnormal (none) [facility] Comment on above: Performed By: #### L [id number], [id number] ####Director Consumer: SHAHLA WARREN ([phone])[facility] [place] [address] PLATELET MORPHOLOGY IN BLOOD Normal Normal [facility] Comment on above: Performed By: #### L [id number], [id number] ####Director Consumer: SHAHLA WARREN ([phone])[facility] ([facility])[address] [place] [address] POIKILOCYTOSIS (PRESENCE) IN BLOOD BY LIGHT MICROSCOPY Slight Abnormal (none) [facility] Comment on above: Performed By: #### L [id number], [id number] ####Director Consumer: SHAHLA WARREN ([phone])[facility])[address] [place] [address] SEGEMENTED NEUTROPHILS/100 LEUKOCYTES BY MANUAL COUNT 74 % Normal 38-82 [facility] Comment on above: Performed By: #### L [id number], [id number] ####Director Consumer: SHAHLA WARREN ([phone])[facility] ([facility])[address] [place] [address] SEGMENTED NEUTROPHILS (10*3/UL)IN BLOOD BY MANUAL COUNT 12.2 10*3/uL High 1.8-7.5 [facility] Comment on above: Performed By: #### L [id number], [id number] ####Director Consumer: SHAHLA WARREN ([phone])[facility] ([facility])[address] [place] [address] [place] Magnesium [Mass/Vol]on 01-01 Interpretation and review of laboratory results Normal [facility] Manual differential performe d Ql (Bld)on 01-01-2025 Band form neutrophils (Bld) [#/Vol] 1.1 10*3/uL High NINF - 0.0 10*3/uL [facility] Band form neutrophils/100 WBC (Bld) 7 % High NINF - 0 % [facility] Bands Manual 7 [facility] Cells Counted Total (Bld) [#] 100 {cells} [facility] Differential Method Manual differential performed [facility] Interpretation and review of laboratory results Abnormal [facility] Leukocyte morphology finding Nom (Bld) Normal [facility] Lymphocytes (Bld) [#/Vol] 2.6 10*3/uL 1.0 - 4.3 10*3/uL [facility] Lymphocytes Manual 17 [facility] Lymphocytes/100 WBC (Bld) 17 % 15 - 45 % [facility] Metamyelocytes (Bld) [#/Vol] 0.3 10*3/uL High NINF - 0.0 10*3/uL [facility] Metamyelocytes Manual 2 [facility] Metamyelocytes/100 WBC (Bld) 2 % High NINF - 0 % [facility] Neutrophils (Bld) [#/Vol] 12.2 10*3/uL High 1.8 - 7.5 10*3/uL [facility] Neutrophils Manual 74 [facility] Nucleated RBC/100 WBC (Bld) [Ratio] 3 % [facility] Ovalocytes LM Ql (Bld) Slight Abnormal (none) [facility] Platelet morphology finding Nom (Bld) Normal [facility] Poikilocytosis LM Ql (Bld) Slight Abnormal (none) [facility] Segmented neutrophils/100 WBC (Bld) 74 % 38 - 82 % [facility] WBC corrected for nucl RBC (Bld) [#/Vol] 15 10*3/uL High 3.6 - 10.7 10*3/uL [facility] No Panel Informationon 01-01 Amount Of Oxygen 55 [facility] Interpretation and review of laboratory results Abnormal [facility] Source Of Oxygen Ventilator [facility] alth [facility] Interpretation and review of laboratory results Abnormal [facility] CV EPIPHANY [facility] Interpretation and review of laboratory results Abnormal [facility] Interpretation and review of laboratory results Abnormal [facility] Interpretation and review of laboratory results Abnormal [facility] Amount Of Oxygen 50 [facility] Interpretation and review of laboratory results Abnormal [facility] Source Of Oxygen Ventilator [facility] alth [facility] No Panel InformationOrdered By: Chante Pelayo on 01-01-2025 P [place] 30 degrees [facility] Work Phone: MI Interval 138 ms [facility] Work Phone: QRS [place] 12 degrees [facility] Work Phone: QRSD Interval 92 ms [facility] Work Phone: QT Interval 451 ms [facility] [employer] Work Phone: QTC Interval 410 ms [facility] [employer] Work Phone: T Wave [place] 19 degrees [facility] [employer] Work Phone: [facility] [employer] Work Phone: No Panel InformationOrdered By: Vale Jacob on 01-01-2025 Amount Of Oxygen 55 [facility] Interpretation and review of laboratory results Abnormal [facility] Source Of Oxygen Ventilator [facility] PHOSPHORUSon 01-01-2025 Phosphate [Mass/Vol] 2.0 mg/dL Low 2.3-4.7 [facility] Comment on above: Performed By: #### L [id number], [id number], [id number] ####Director Consumer: SHAHLA WARREN ([phone])[facility] [place] [address] Phosphate [Moles/Vol]on 12-22 Phosphate [Mass/Vol] 2 mg/dL Low 2.3 - 4 .7 mg/dL [facility] Progress Noteon 01-01-2025 Progress Note Normal [facility] Progress Note Normal [facility] Progress Note Normal [facility] Vital signsOrdered By: Chante Pelayo on 01-01-2025 Heart rate 50 /min bpm [facility] [employer] Work Phone: XR CHEST 1 VIEWon 01-01-2025 XR CHEST 1 VIEW Normal [facility] XR Chest Single viewon 01-01 [facility] EM[facility] RADIOLOGY SYSTEM [facility] EMERGENC[facility]PART[facility] RADIOLOGY SYSTEM [facility] Radiology Study observation (narrative) [facility] XR Chest Single viewOrdered By: Velma Acharya on 01-01-2025 [facility] [employer] Work Phone: BASIC METABOLIC PANELon 12-22 Anion gap [Moles/Vol] 10 mmol/L Normal 3-13 [facility] Comment on above: Performed By: #### L [id number] ####Director Consumer: SHAHLA WARREN ([phone])[facility] [place] [address] Calcium [Mass/Vol] 8.5 mg/dL Normal 8.4-10.2 [facility] Comment on above: Performed By: #### L AB15 ####Director Consumer: SHAHLA WARREN ([phone])[facility] ([facility])[address] [place] [address] Chloride [Moles/Vol] 118 mmol/L High 98-107 [facility] Comment on above: Performed By: #### L AB15 ####Director Consumer: SHAHLA WARREN ([phone])[facility])[address] [place] [address] CO2 [Moles/Vol] 25 mmol/L Normal 22-29 [facility] Comment on above: Performed By: #### L AB15 ####Director Consumer: SHAHLA WARREN ([phone])[facility])[address] [place] [address] Creatinine [Mass/Vol] 0.95 mg/dL Normal 0.72-1.25 [facility] Comment on above: Performed By: #### L AB15 ####Director Consumer: SHAHLA WARREN ([phone])[facility])[address] [place] [address] GLOMERULAR FILTRATION RATE ML/MIN/1.73 SQ M.PREDICTED >90.0 Normal >60.0 [facility] Comment on above: Result Comment: Calc ulation based on the Chronic Kidney Disease Epidemiology Collaboration (CKD-EPI) equation refit without adjustment for race Performed By: #### L AB15 ####Director Consumer: SHAHLA WARREN ([phone])[facility])[address] [place] [address] [place] Glucose [Mass/Vol] 167 mg/dL High 74-100 [facility] Comment on above: Performed By: #### L AB15 ####Director Consumer: SHAHLA WARREN ([phone])[facility])[address] [place] [address] [place] Potassium [Moles/Vol] 3.1 mmol/L Low 3.5-5.1 [facility] Comment on above: Result Comment: [facility] potassium values may be up to 0.5 mmol/L lower than serum values. Performed By: #### L AB15 ####Director Consumer: SHAHLA WARREN ([phone])[facility] ([facility])[address] [place] [address] Sodium [Moles/Vol] 153 mmol/L High 136-145 [facility] Comment on above: Performed By: #### L AB15 ####Director Consumer: SHAHLA WARREN ([phone])[facility])[address] [place] [address] Urea nitrogen [Mass/Vol] 33 mg/dL High 8-21 [facility] Comment on above: Performed By: #### L AB15 ####Director Consumer: SHAHLA WARREN ([phone])[facility])[address] [place] [address] Anion gap [Moles/Vol] 9 mmol/L Normal 3-13 [facility] Comment on above: Performed By: #### L [id number], LAB62, LAB15 ####Director Consumer: SHAHLA WARREN ([phone])[facility] ([facility])[address] [place] [address] Calcium [Mass/Vol] 8.6 mg/dL Normal 8.4-10.2 [facility] Comment on above: Performed By: #### L AB134, LAB62, LAB15 ####Director Consumer: SHAHLA WARREN ([phone])[facility])[address] [place] [address] [place] Chloride [Moles/Vol] 113 mmol/L High 98-107 [facility] Comment on above: Performed By: #### L AB134, LAB62, LAB15 ####Director Consumer: SHAHLA WARREN ([phone])[facility])[address] [place] [address] [place] CO2 [Moles/Vol] 31 mmol/L High 22-29 [facility] Comment on above: Performed By: #### L AB134, LAB62, LAB15 ####Director Consumer: SHAHLA WARREN ([phone])[facility])[address] [place] [address] Creatinine [Mass/Vol] 1.02 mg/dL Normal 0.72-1.25 [facility] Comment on above: Performed By: #### L AB134, LAB62, LAB15 ####Director Consumer: SHAHLA WARREN ([phone])[facility])[address] [place] [address] GLOMERULAR FILTRATION RATE ML/MIN/1.73 SQ M.PREDICTED >90.0 Normal >60.0 [facility] Comment on above: Result Comment: Calc ulation based on the Chronic Kidney Disease Epidemiology Collaboration (CKD-EPI) equation refit without adjustment for race Performed By: #### L AB134, LAB62, LAB15 ####Director Consumer: SHAHLA WARREN ([phone])[facility])[address] [place] [address] Glucose [Mass/Vol] 179 mg/dL High 74-100 [facility] Comment on above: Performed By: #### L AB134, LAB62, LAB15 ####Director Consumer: SHAHLA WARREN ([phone])[address] Potassium [Moles/Vol] 3.1 mmol/L Low 3.5-5.1 [facility] Comment on above: Result Comment: [facility] potassium values may be up to 0.5 mmol/L lower than serum values. Performed By: #### L AB134, LAB62, LAB15 ####Director Consumer: SHAHLA WARREN ([phone])[facility])[address] [place] [address] Sodium [Moles/Vol] 153 mmol/L High 136-145 [facility] Comment on above: Performed By: #### L AB134, LAB62, LAB15 ####Director Consumer: SHAHLA WARREN ([phone])[facility])[address] [place] [address] Urea nitrogen [Mass/Vol] 35 mg/dL High 8-21 [facility] Comment on above: Performed By: #### L AB134, LAB62, LAB15 ####Director Consumer: SHAHLA WARREN ([phone])[facility] ([facility])[address] [place] [address] BLOOD GAS ARTERIALon 2 025 AMOUNT OF OXYGEN 60 Normal [facility] Comment on above: Order Comment: While on ventilator Performed By: #### L AB76 ####Director Consumer: SHAHLA WARREN ([phone])[facility])[address] [place] [address] Base excess Calc (Bld) [Moles/Vol] 4.9 mmol/L High -3.0-3.0 [facility] Comment on above: Order Comment: While on ventilator Performed By: #### L AB76 ####Director Consumer: SHAHLA WARREN ([phone])[facility])[address] [place] [address] CO2 [Moles/Vol] 30.4 mmol/L High 23.0-27.0 [facility] Comment on above: Order Comment: While on ventilator Performed By: #### L AB76 ####Director Consumer: SHAHLA WARREN ([phone])[facility] ([facility])[address] [place] [address] HCO3 (Bld) [Moles/Vol] 29.1 mmol/L High 21.0-25.0 [facility] Comment on above: Order Comment: While on ventilator Performed By: #### L AB76 ####Director Consumer: SHAHLA WARREN ([phone])[facility])[address] [place] [address] Hemoglobin (Bld) [Mass/Vol] 10.2 g/dL Normal Screen only [facility] Comment on above: Order Comment: While on ventilator Performed By: #### L AB76 ####Director Consumer: SHAHLA WARREN ([phone])[facility])[address] [place] [address] OXYGEN SATURATION (%) IN ARTERIAL BLOOD 95.1 % Normal 95.0-100.0 [facility] Comment on above: Order Comment: While on ventilator Performed By: #### L AB76 ####Director Consumer: SHAHLA WARREN ([phone])[facility] ([facility])[address] [place] [address] PCO2 ARTERIAL 41.5 mm Hg Normal >35.0-<45.0 [facility] Comment on above: Order Comment: While on ventilator Performed By: #### L AB76 ####Director Consumer: SHAHLA WARREN ([phone])[facility])[address] [place] [address] PH ARTERIAL 7.464 High 7.350-7.450 [facility] Comment on above: Order Comment: While on ventilator Performed By: #### L AB76 ####Director Consumer: SHAHLA WARREN ([phone])[facility])[address] [place] [address] PO2 ARTERIAL 80.1 mm Hg Normal 80.0-100.0 [facility] Comment on above: Order Comment: While on ventilator Performed By: #### L AB76 ####Director Consumer: SHAHLA WARREN ([phone])[facility])[address] [place] [address] SOURCE OF OXYGEN Ventilator Normal [facility] Comment on above: Order Comment: While on ventilator Performed By: #### L AB76 ####Director Consumer: SHAHLA WARREN ([phone])[facility] [place] [address] AMOUNT OF OXYGEN 60 Normal [facility] Comment on above: Order Comment: While on ventilator Performed By: #### L AB76 ####Director Consumer: SHAHLA WARREN ([phone])[facility] ([facility])[address] [place] [address] Base excess Calc (Bld) [Moles/Vol] 8.8 mmol/L High -3.0-3.0 [facility] Comment on above: Order Comment: While on ventilator Performed By: #### L AB76 ####Director Consumer: SHAHLA WARREN ([phone])[facility] ([facility])[address] CO2 [Moles/Vol] 34.7 mmol/L High 23.0-27.0 [facility] Comment on above: Order Comment: While on ventilator Performed By: #### L AB76 ####Director Consumer: SHAHLA WARREN ([phone])[facility] ([facility])[address] [place] [address] HCO3 (Bld) [Moles/Vol] 33.3 mmol/L High 21.0-25.0 [facility] Comment on above: Order Comment: While on ventilator Performed By: #### L AB76 ####Director Consumer: SHAHLA WARREN ([phone])[facility] [place] [address] Hemoglobin (Bld) [Mass/Vol] 11.1 g/dL Normal Screen only [facility] Comment on above: Order Comment: While on ventilator Performed By: #### L [id number] ####Director Consumer: SHAHLA WARREN ([phone])[facility])[address] [place] [address] OXYGEN SATURATION (%) IN ARTERIAL BLOOD 96.3 % Normal 95.0-100.0 [facility] Comment on above: Order Comment: While on ventilator Performed By: #### L [id number] ####Director Consumer: SHAHLA WARREN ([phone])[facility] ([facility])[address] [place] [address] PCO2 ARTERIAL 45.3 mm Hg High >35.0-<45.0 [facility] Comment on above: Order Comment: While on ventilator Performed By: #### L [id number] ####Director Consumer: SHAHLA WARREN ([phone])[facility] ([facility])[address] [place] [address] PH ARTERIAL 7.484 High 7.350-7.450 [facility] Comment on above: Order Comment: While on ventilator Performed By: #### L AB76 ####Director Consumer: SHAHLA WARREN ([phone])[facility] [place] [address] PO2 ARTERIAL 92.0 mm Hg Normal 80.0-100.0 [facility] Comment on above: Order Comment: While on ventilator Performed By: #### L AB76 ####Director Consumer: SHAHLA WARREN ([phone])[facility] ([facility])[address] [place] [address] SOURCE OF OXYGEN Ventilator Normal [facility] Comment on above: Order Comment: While on ventilator Performed By: #### L AB76 ####Director Consumer: SHAHLA WARREN ([phone])[facility] [place] [address] Bacteria identified Aer cx N om (Lower resp)on 12-31-2024 Gram Stain Result Many Polymorphonuclear leukocytes per low power field [facility] Gram Stain Result No epithelial cells seen [facility] Gram Stain Result No organisms seen [facility] Basic metabolic 1998 panelon 12-31-2024 Anion gap [Moles/Vol] 10 mmol/L 3 - 13 mmol/L [facility] Calcium [Mass/Vol] 8.5 mg/dL 8.4 - 10. 2 mg/dL [facility] Chloride [Moles/Vol] 118 mmol/L High 98 - 10 7 mmol/L [facility] CO2 [Moles/Vol] 25 mmol/L 22 - 29 mmol/L [facility] Creatinine [Mass/Vol] 0.95 mg/dL 0.72 - 1.25 mg/dL [facility] GFR/1.73 sq M.predicted (S/P/Bld) [Vol rate/Area] - PINF [facility] Glucose [Mass/Vol] 167 mg/dL High 74 - 100 mg/dL [facility] Interpretation and review of laboratory results Abnormal [facility] Potassium [Moles/Vol] 3.1 mmol/L Low 3.5 - 5.1 mmol/L [facility] Sodium [Moles/Vol] 153 mmol/L High 136 - 145 mmol/L [facility] Urea nitrogen [Mass/Vol] 33 mg/dL High 8 - 21 mg/dL [facility] Anion gap [Moles/Vol] 9 mmol/L 3 - 13 mmol/L [facility] Calcium [Mass/Vol] 8.6 mg/dL 8.4 - 10. 2 mg/dL [facility] Chloride [Moles/Vol] 113 mmol/L High 98 - 10 7 mmol/L [facility] CO2 [Moles/Vol] 31 mmol/L High 22 - 29 mmol/L [facility] Creatinine [Mass/Vol] 1.02 mg/dL 0.72 - 1.25 mg/dL [facility] GFR/1.73 sq M.predicted (S/P/Bld) [Vol rate/Area] - PINF [facility] Glucose [Mass/Vol] 179 mg/dL High 74 - 100 mg/dL [facility] [place] Interpretation and review of laboratory results Abnormal [facility] Potassium [Moles/Vol] 3.1 mmol/L Low 3.5 - 5.1 mmol/L [facility] Sodium [Moles/Vol] 153 mmol/L High 136 - 145 mmol/L [facility] Urea nitrogen [Mass/Vol] 35 mg/dL High 8 - 21 mg/dL [facility] Anion gap [Moles/Vol] 14 mmol/L High 3 - 13 mmol/L [facility] [place] Calcium [Mass/Vol] 9.2 mg/dL 8.4 - 10. 2 mg/dL [facility] Chloride [Moles/Vol] 110 mmol/L High 98 - 10 7 mmol/L [facility] CO2 [Moles/Vol] 30 mmol/L High 22 - 29 mmol/L [facility] Creatinine [Mass/Vol] 1.07 mg/dL 0.72 - 1.25 mg/dL [facility] GFR/1.73 sq M.predicted (S/P/Bld) [Vol rate/Area] - PINF [facility] Glucose [Mass/Vol] 184 mg/dL High 74 - 100 mg/dL [facility] [place] Interpretation and review of laboratory results Abnormal [facility] Potassium [Moles/Vol] 3.2 mmol/L Low 3.5 - 5.1 mmol/L [facility] Sodium [Moles/Vol] 154 mmol/L High 136 - 145 mmol/L [facility] Urea nitrogen [Mass/Vol] 31 mg/dL High 8 - 21 mg/dL [facility] CALCIUM, IONIZEDon CALCIUM IONIZED 4.20 mg/dL Low 4.30-5.20 [facility] Comment on above: Performed By: #### L [id number] ####Director Consumer: SHAHLA WARREN ([phone])[facility] ([facility])[address] [place] [address] PH, IONIZED CALCIUM 7.52 High 7.31-7.46 [facility] Comment on above: Performed By: #### L [id number] ####Director Consumer: SHAHLA WARREN ([phone])[facility] ([facility])[address] [place] [address] CBC W Auto Differential pane l (Bld)on 12-31-2024 Erythrocyte distribution width (RBC) [Ratio] 14.7 % 11.5 - 15.0 % [facility] Hematocrit (Bld) [Volume fraction] 29.1 % Low 40.0 - 52.0 % [facility] Hemoglobin (Bld) [Mass/Vol] 9.8 g/dL Low 13.0 - 18.0 g/dL [facility] [place] Interpretation and review of laboratory results Abnormal [facility] MCH (RBC) [Entitic mass] 30.7 pg 26.0 - 34.0 pg [facility] MCHC (RBC) [Mass/Vol] 33.7 % 30.5 - 36.0 % [facility] MCV (RBC) [Entitic vol] 91.2 fL 77.0 - 99.0 fL [facility] Platelet mean volume (Bld) [Entitic vol] 10.2 fL 9.0 - 12.7 fL [facility] Platelets (Bld) [#/Vol] 193 10*3/uL 140 - 440 10*3/uL [facility] RBC (Bld) [#/Vol] 3.19 10*6/uL Low 4.40 - 5.9 0 10*6/uL [facility] WBC (Bld) [#/Vol] 13.8 10*3/uL High 3.6 - 10.7 10*3/uL [facility] CBC WITH AUTO DIFFERENTIALon 12-31-2024 Erythrocyte distribution width (RBC) [Ratio] 14.7 % Normal 11.5-15.0 [facility] Comment on above: Performed By: #### L [id number], [id number] ####Director Consumer: SHAHLA WARREN ([phone])[address] Hematocrit (Bld) [Volume fraction] 29.1 % Low 40.0-52.0 [facility] Comment on above: Performed By: #### L [id number], [id number] ####Director Consumer: SHAHLA WARREN ([phone])[address] Hemoglobin (Bld) [Mass/Vol] 9.8 g/dL Low 13.0-18.0 [facility] Comment on above: Performed By: #### L [id number], [id number] ####Director Consumer: SHAHLA WARREN ([phone])[address] MCH (RBC) [Entitic mass] 30.7 pg Normal 26.0-34.0 [facility] Comment on above: Performed By: #### L [id number], [id number] ####Director Consumer: SHAHLA WARREN ([phone])[address] MCHC 33.7 % Normal 30.5-36.0 [facility] Comment on above: Performed By: #### L [id number], [id number] ####Director Consumer: SHAHLA WARREN ([phone])[address] MCV (RBC) [Entitic vol] 91.2 fL Normal 77.0-99.0 [facility] Comment on above: Performed By: #### L [id number], [id number] ####Director Consumer: SHAHLA WARREN ([phone])[address] Platelet mean volume (Bld) [Entitic vol] 10.2 fL Normal 9.0-12.7 [facility] Comment on above: Performed By: #### L [id number], [id number] ####Director Consumer: SHAHLA WARREN ([phone])[facility])[address] [place] [address] Platelets (Bld) [#/Vol] 193 10*3/uL Normal 140-440 [facility] Comment on above: Performed By: #### L [id number], [id number] ####Director Consumer: SHAHLA WARREN ([phone])[facility] ([facility])[address] [place] [address] RBC (Bld) [#/Vol] 3.19 10*6/uL Low 4.40-5.90 [facility] Comment on above: Performed By: #### L [id number], [id number] ####Director Consumer: SHAHLA WARREN ([phone])[facility])[address] [place] [address] WBC (Bld) [#/Vol] 13.8 10*3/uL High 3.6-10.7 [facility] Comment on above: Performed By: #### L [id number], [id number] ####Director Consumer: SHAHLA WARREN ([phone])[facility])[address] [place], [place] [address]n 12-31-2024 CK [Catalytic activity/Vol] 835 U/L High 30-185 [facility] Comment on above: Performed By: #### L [id number], LAB62, LAB15 ####Director Consumer: SHAHLA WARREN ([phone])[facility])[address] [place] [address] CK [Catalytic activity/Vol]o n 12-31-2024 Interpretation and review of laboratory results Abnormal [facility] Calcium.ionized [Moles/Vol]o n 12-31-2024 Calcium.ionized (Bld) [Moles/Vol] 4.2 mg/dL Low 4.30 - 5.20 mg/dL [facility] [place] Interpretation and review of laboratory results Abnormal [facility] PH, IONIZED CALCIUM 7.52 High 7.31 - 7.46 [facility] HEPATIC FUNCTION PANELon Albumin [Mass/Vol] 2.6 g/dL Low 3.5-5.0 [facility] Comment on above: Performed By: #### L [id number], LAB20, [id number], [id number] ####Director Consumer: SHAHLA WARREN ([phone])[facility] ([facility])[address] [place] [address] ALP [Catalytic activity/Vol] 78 U/L Normal 40-150 [facility] Comment on above: Performed By: #### L [id number], LAB20, [id number], [id number] ####Director Consumer: SHAHLA WARREN ([phone])[facility])[address] [place] [address] ALT [Catalytic activity/Vol] 106 U/L High <40 [facility] Comment on above: Performed By: #### L [id number], LAB20, [id number], [id number] ####Director Consumer: SHAHLA WARREN ([phone])[facility] ([facility])[address] [place] [address] AST [Catalytic activity/Vol] 80 U/L High <34 [facility] Comment on above: Performed By: #### L [id number], LAB20, [id number], [id number] ####Director Consumer: SHAHLA WARREN ([phone])[facility])[address] [place] [address] [place] Bilirubin [Mass/Vol] 0.6 mg/dL Normal <1.2 [facility] Comment on above: Performed By: #### L [id number], LAB20, YTL961, [id number] ####Director Consumer: SHAHLA WARREN ([phone])[facility])[address] [place] [address] [place] Bilirubin.indirect [Mass/Vol] 0.2 mg/dL Normal <0.5 [facility] Comment on above: Performed By: #### L [id number], LAB20, [id number], [id number] ####Director Consumer: SHAHLA WARREN ([phone])[facility])[address] [place] [address] Protein [Mass/Vol] 6.8 g/dL Normal 6.4-8.3 [facility] Comment on above: Result Comment: Seru m protein values are higher than plasma values. Samples from recumbent persons are lower by up to 0.5 g/dL as compared to ambulatory persons. After 60 years values are lower by up to 0.2 g/dL. Performed By: #### L [id number], LAB20, IYG586, [id number] ####Director Consumer: SHAHLA WARREN ([phone])[facility] [place] [address] Hepatic function 2000 panelo n 12-31-2024 Albumin [Mass/Vol] 2.6 g/dL Low 3.5 - 5.0 g/dL [facility] ALP [Catalytic activity/Vol] 78 U/L 40 - 150 U/L [facility] ALT [Catalytic activity/Vol] 106 U/L [facility] AST [Catalytic activity/Vol] 80 U/L High [facility] - [facility] U/L [facility] Bilirubin [Mass/Vol] 0.6 mg/dL [facility] - 1.2 mg/dL [facility] Bilirubin.conjugated [Mass/Vol] 0.2 mg/dL [facility] - 0.5 mg/dL [facility] [place] Interpretation and review of laboratory results Abnormal [facility] Protein [Mass/Vol] 6.8 g/dL 6.4 - 8.3 g/dL [facility] Laboratory - Chemistry and C hemistry - challengeon 12-31-2024 Glucose [Mass/Vol] 152 mg/dL High 70 - 100 mg/dL [facility] Base excess Calc (Bld) [Moles/Vol] 4.9 mmol/L High -3.0 - 3.0 mmol/L [facility] CO2 (Bld) [Partial pressure] 41.5 mm[Hg] - PINF [facility] CO2 [Moles/Vol] 30.4 mmol/L High 23.0 - 27.0 mmol/L [facility] HCO3 (Bld) [Moles/Vol] 29.1 mmol/L High 21.0 - 25.0 mmol/L [facility] Oxygen (Bld) [Partial pressure] 80.1 mm[Hg] [facility] pH (Bld) 7.464 [pH] High 7.350 - 7.450 [facility] Glucose [Mass/Vol] 159 mg/dL High 70 - 100 mg/dL [facility] Glucose [Mass/Vol] 164 mg/dL High 70 - 100 mg/dL [facility] Base excess Calc (Bld) [Moles/Vol] 8.8 mmol/L High -3.0 - 3.0 mmol/L [facility] CO2 (Bld) [Partial pressure] 45.3 mm[Hg] High - PINF [facility] CO2 [Moles/Vol] 34.7 mmol/L High 23.0 - 27.0 mmol/L [facility] HCO3 (Bld) [Moles/Vol] 33.3 mmol/L High 21.0 - 25.0 mmol/L [facility] Oxygen (Bld) [Partial pressure] 92 mm[Hg] [facility] pH (Bld) 7.484 [pH] High 7.350 - 7.450 [facility] Triglyceride [Mass/Vol] 806 mg/dL High NINF - 150 mg/dL [facility] CK [Catalytic activity/Vol] 835 U/L High 30 - 185 U/L [facility] Glucose [Mass/Vol] 181 mg/dL High 70 - 100 mg/dL [facility] Procalcitonin [Mass/Vol] 0.95 ng/mL High NINF - 0.07 ng/mL [facility] Magnesium [Mass/Vol] 2.3 mg/dL 1.6 - 2 .6 mg/dL [facility] Glucose [Mass/Vol] 200 mg/dL High 70 - 100 mg/dL [facility] Base excess Calc (Bld) [Moles/Vol] 11.9 mmol/L High -3.0 - 3.0 mmol/L [facility] CO2 (Bld) [Partial pressure] 43.4 mm[Hg] - PINF [facility] CO2 [Moles/Vol] 37 mmol/L High 23.0 - 27.0 mmol/L [facility] HCO3 (Bld) [Moles/Vol] 35.7 mmol/L High 21.0 - 25.0 mmol/L [facility] Oxygen (Bld) [Partial pressure] 66.5 mm[Hg] Low [facility] pH (Bld) 7.533 [pH] High 7.350 - 7.450 [facility] Laboratory - Hematology and Cell countson 12-31-2024 Hemoglobin (Bld) [Mass/Vol] 10.2 g/dL Screen only [facility] Hemoglobin (Bld) [Mass/Vol] 11.1 g/dL Screen only [facility] Hemoglobin (Bld) [Mass/Vol] 10.8 g/dL Screen only [facility] Laboratory - Microbiology an d Antimicrobial susceptibilityon 12-31-2024 Bacteria identified Aer cx Nom (Lower resp) No growth of normal respiratory samuel. [facility] MAGNESIUMon 12-31-2024 Magnesium [Mass/Vol] 2.3 mg/dL Normal 1.6-2.6 [facility] Comment on above: Result Comment: DARIO Wylie COMMENTS:Higher values can be expected in females during menses. Performed By: #### L [id number], LAB20, [id number], [id number] ####Director Consumer: SHAHLA WARREN ([phone])[address] MANUAL DIFFERENTIALon 2024 BAND NEUTROPHILS TOTAL PER COUNTED LEUKOCYTES BY MANUAL COUNT 24 Normal [facility] Comment on above: Performed By: #### L [id number], [id number] ####Director Consumer: SHAHLA WARREN ([phone])[facility])[address] [place] [address] BANDS 3.3 10*3/uL High <=0.0 [facility] Comment on above: Performed By: #### L [id number], [id number] ####Director Consumer: SHAHLA WARREN ([phone])[facility])[address] [place] [address] CELLS COUNTED TOTAL (#) IN BLOOD 100 Normal [facility] Comment on above: Performed By: #### L [id number], [id number] ####Director Consumer: SHAHLA WARREN ([phone])[facility])[address] [place] [address] DACROCYTES PRESENCE IN BLOOD BY LIGHT MICROSCOPY Rare Abnormal (none) [facility] Comment on above: Performed By: #### L [id number], [id number] ####Director Consumer: SHAHLA WARREN ([phone])[facility])[address] [place] [address] DIFFERENTIAL METHOD Manual differential performed Normal [facility] Comment on above: Performed By: #### L [id number], [id number] ####Director Consumer: SHAHLA WARREN ([phone])[facility])[address] [place] [address] LEUKOCYTE MORPHOLOGY FINDING IN BLOOD Normal Normal [facility] Comment on above: Performed By: #### L [id number], [id number] ####Director Consumer: SHAHLA WARREN ([phone])[facility])[address] [place] [address] LEUKOCYTES (10*3/UL) NUCLEATED ERYTHROCYTE ADJUST 13.8 10*3/uL High 3.6-10.7 [facility] Comment on above: Performed By: #### Prem [id number], [id number] ####Director Consumer: SHAHLA WARREN ([phone])[facility])[address] [place] [address] LYMPHOCYTES (10*3/UL) IN BLOOD BY MANUAL COUNT 0.7 10*3/uL Low 1.0-4.3 [facility] Comment on above: Performed By: #### L [id number], [id number] ####Director Consumer: SHAHLA WARREN ([phone])[facility])[address] [place] [address] [place] LYMPHOCYTES TOTAL PER COUNTED LEUKOCYTES BY MANUAL COUNT 5 Normal [facility] Comment on above: Performed By: #### L [id number], [id number] ####Director Consumer: SHAHLA WARREN ([phone])[place] [address] [place] LYMPHOCYTES/100 LEUKOCYTES IN BLOOD BY MANUAL COUNT 5 % Low 15-45 [facility] Comment on above: Performed By: #### L [id number], [id number] ####Director Consumer: SHAHLA WARREN ([phone])[facility] [place] [address] [place] METAMYELOCYTES (10*3/UL) IN BLOOD BY MANUAL COUNT 0.1 10*3/uL High <=0.0 [facility] Comment on above: Performed By: #### L [id number], [id number] ####Director Consumer: SHAHLA WARREN ([phone])[facility] ([facility])[address] [place] [address] [place] METAMYELOCYTES TOTAL PER COUNTED LEUKOCYTES BY MANUAL COUNT 1 Normal [facility] Comment on above: Performed By: #### L [id number], [id number] ####Director Consumer: SHAHLA WARREN ([phone])[facility] ([facility])[address] [place] [address] [place] METAMYELOCYTES/100 LEUKOCYTES IN BLOOD BY MANUAL COUNT 1 % High <=0 [facility] Comment on above: Performed By: #### L [id number], [id number] ####Director Consumer: SHAHLA WARREN ([phone])[facility] ([facility])[address] [place] [address] [place] MONOCYTES (10*3/UL) IN BLOOD BY MANUAL COUNT 0.3 10*3/uL Normal 0.0-0.9 [facility] Comment on above: Performed By: #### L [id number], [id number] ####Director Consumer: SHAHLA WARREN ([phone])[facility] ([facility])[address] [place] [address] [place] MONOCYTES TOTAL PER COUNTED LEUKOCYTES BY MANUAL COUNT 2 Normal [facility] Comment on above: Performed By: #### L [id number], [id number] ####Director Consumer: SHAHLA WARREN ([phone])[facility] ([facility])[address] [place] [address] [place] MONOCYTES/100 LEUKOCYTES IN BLOOD BY MANUAL COUNT 2 % Low 5-13 [facility] Comment on above: Performed By: #### L [id number], [id number] ####Director Consumer: SHAHLA WARREN ([phone])[facility] ([facility])[address] [place] [address] [place] NEUTROPHILS (SEGS+BANDS) (10*3/UL) BY MANUAL COUNT 12.7 10*3/uL High 1.8-7.0 [facility] Comment on above: Performed By: #### L [id number], [id number] ####Director Consumer: SHAHLA WARREN ([phone])[facility] ([facility])[address] [place] [address] NEUTROPHILS BAND FORM/100 LEUKOCYTES IN BLOOD BY MANUAL COUNT 24 % High <=0 [facility] Comment on above: Performed By: #### L [id number], [id number] ####Director Consumer: SHAHLA WARREN ([phone])[facility] ([facility])[address] [place] [address] NEUTROPHILS TOTAL PER COUNTED LEUKOCYTES BY MANUAL COUNT 68 Normal [facility] Comment on above: Performed By: #### Prem [id number], [id number] ####Director Consumer: SHAHLA WARREN ([phone])[facility] ([facility])[address] [place] [address] NUCLEATED ERYTHROCYTES/100 LEUKOCYTES IN BLOOD BY MANUAL COUNT 14 % Normal [facility] Comment on above: Performed By: #### Prem [id number], [id number] ####Director Consumer: SHHALA WARREN ([phone])[facility] ([facility])[address] [place] [address] PLATELET MORPHOLOGY IN BLOOD Normal Normal [facility] Comment on above: Performed By: #### L [id number], [id number] ####Director Consumer: SHAHLA WARREN ([phone])[facility] ([facility])[address] [place] [address] [place] POIKILOCYTOSIS (PRESENCE) IN BLOOD BY LIGHT MICROSCOPY Rare Abnormal (none) [facility] Comment on above: Performed By: #### L [id number], [id number] ####Director Consumer: SHAHLA WARREN ([phone])[facility])[address] [place] [address] [place] SEGEMENTED NEUTROPHILS/100 LEUKOCYTES BY MANUAL COUNT 68 % Normal 38-82 [facility] Comment on above: Performed By: #### L [id number], [id number] ####Director Consumer: SHAHLA WARREN ([phone])[facility])[address] [place] [address] SEGMENTED NEUTROPHILS (10*3/UL)IN BLOOD BY MANUAL COUNT 12.7 10*3/uL High 1.8-7.5 [facility] Comment on above: Performed By: #### L [id number], [id number] ####Director Consumer: SHAHLA WARREN ([phone])[facility])[address] [place] [address] STOMATOCYTES IN BLOOD BY LIGHT MICROSCOPY Rare Abnormal (none) [facility] Comment on above: Performed By: #### L [id number], [id number] ####Director Consumer: SHAHLA WARREN ([phone])[facility])[address] [place] [address] Magnesium [Mass/Vol]on 12-31 [facility] Manual differential performe d Ql (Bld)on 12-31-2024 Band form neutrophils (Bld) [#/Vol] 3.3 10*3/uL High NINF - 0.0 10*3/uL [facility] Band form neutrophils/100 WBC (Bld) 24 % High NINF - 0 % [facility] Bands Manual 24 [facility] Cells Counted Total (Bld) [#] 100 {cells} [facility] Dacrocytes LM Ql (Bld) Rare Abnormal (none) [facility] Differential Method Manual differential performed [facility] Interpretation and review of laboratory results Abnormal [facility] Leukocyte morphology finding Nom (Bld) Normal [facility] Lymphocytes (Bld) [#/Vol] 0.7 10*3/uL Low 1.0 - 4.3 10*3/uL [facility] Lymphocytes Manual 5 [facility] Lymphocytes/100 WBC (Bld) 5 % Low 15 - 45 % [facility] Metamyelocytes (Bld) [#/Vol] 0.1 10*3/uL High NINF - 0.0 10*3/uL [facility] Metamyelocytes Manual 1 [facility] Metamyelocytes/100 WBC (Bld) 1 % High NINF - 0 % [facility] Monocytes (Bld) [#/Vol] 0.3 10*3/uL 0.0 - 0.9 10*3/uL [facility] Monocytes Manual 2 [facility]th Monocytes/100 WBC (Bld) 2 % Low 5 - 13 % [facility] Neutrophils (Bld) [#/Vol] 12.7 10*3/uL High 1.8 - 7.5 10*3/uL [facility] Neutrophils Manual 68 [facility] Nucleated RBC/100 WBC (Bld) [Ratio] 14 % [facility] Platelet morphology finding Nom (Bld) Normal [facility] Poikilocytosis LM Ql (Bld) Rare Abnormal (none) [facility] Segmented neutrophils/100 WBC (Bld) 68 % 38 - 82 % [facility] Stomatocytes LM Ql (Bld) Rare Abnormal (none) [facility] WBC corrected for nucl RBC (Bld) [#/Vol] 13.8 10*3/uL High 3.6 - 10.7 10*3/uL [facility] No Panel Informationon 12-31 Interpretation and review of laboratory results Abnormal [facility] Amount Of Oxygen 60 [facility]th Interpretation and review of laboratory results Abnormal [facility] Source Of Oxygen Ventilator [facility] alth [facility] Interpretation and review of laboratory results Abnormal [facility] Interpretation and review of laboratory results Abnormal [facility] Amount Of Oxygen 60 [facility] Interpretation and review of laboratory results Abnormal [facility] Source Of Oxygen Ventilator [facility] alth [facility] Interpretation and review of laboratory results Abnormal [facility] Interpretation and review of laboratory results Normal [facility] Interpretation and review of laboratory results Abnormal [facility] Amount Of Oxygen 60 [facility]th Interpretation and review of laboratory results Abnormal [facility] Source Of Oxygen Ventilator [facility] alth [facility] PHOSPHORUSon 12-31-2024 Phosphate [Mass/Vol] 2.8 mg/dL Normal 2.3-4.7 [facility] Comment on above: Performed By: #### L [id number], LAB20, [id number], [id number] ####Director Consumer: SHAHLA WARREN ([phone])[facility] [address] ([address] [address] [place] PROCALCITONIN TESTon 025 PROCALCITONIN 0.95 ng/mL High <0.07 [facility] Comment on above: Result Comment: JOSEE R COMMENTS:PCT <0.50 = Low risk of severe sepsis and/or septic shock.PCT >2.00 = High risk of severe sepsis and/or septic shock. Performed By: #### L [id number], [id number], [id number], [id number] ####Director Consumer: SHAHLA WARREN ([phone])[facility] ([facility])[address] [place] [address] [place] Phosphate [Moles/Vol]on 12-22 Phosphate [Mass/Vol] 2.8 mg/dL 2.3 - 4 .7 mg/dL [facility] Procalcitonin [Mass/Vol]on 12-31-2024 Interpretation and review of laboratory results Abnormal [facility] Progress Noteon 12-31-2024 Progress Note Normal [facility] Progress Note Normal [facility] TRIGLYCERIDESon 12-31-2024 Triglyceride [Mass/Vol] 806 mg/dL High <150 [facility] Comment on above: Performed By: #### L AB134, LAB62, LAB15 ####Director Consumer: SHAHLA WARREN ([phone])[facility] ([facility])[address] [place] [address] [place] Triglyceride [Mass/Vol]on Interpretation and review of laboratory results Abnormal [facility] XR CHEST 1 VIEWon 12-31-2024 XR CHEST 1 VIEW Normal [facility] XR Chest Single viewon 12-31 [facility]PART[facility] RADIOLOGY SYSTEM [facility] EMERGENC[facility]PART[facility] RADIOLOGY SYSTEM [facility] Radiology Study observation (narrative) [facility] XR Chest Single viewOrdered By: Chin Fry on 12-31-2024 [facility] Work Phone: 30on 12-30-2024 30 Normal [facility] [id number] 12-30-2024 [id number] Normal [facility] BASIC METABOLIC PANELon Anion gap [Moles/Vol] 14 mmol/L High 3-13 [facility] Comment on above: Performed By: #### L AB15 ####Director Consumer: SHAHLA WARREN ([phone])[facility] [place] [address] Calcium [Mass/Vol] 9.2 mg/dL Normal 8.4-10.2 [facility] Comment on above: Performed By: #### L AB15 ####Director Consumer: SHAHLA WARREN ([phone])[facility] [place] [address] Chloride [Moles/Vol] 110 mmol/L High 98-107 [facility] Comment on above: Performed By: #### L AB15 ####Director Consumer: SHAHLA WARREN ([phone])[facility] [place] [address] CO2 [Moles/Vol] 30 mmol/L High 22-29 [facility] Comment on above: Performed By: #### L AB15 ####Director Consumer: SHAHLA WARREN ([phone])[facility] [place] [address] Creatinine [Mass/Vol] 1.07 mg/dL Normal 0.72-1.25 [facility] Comment on above: Performed By: #### L AB15 ####Director Consumer: SHAHLA WARREN ([phone])[facility] ([facility])[address] [place] [address] GLOMERULAR FILTRATION RATE ML/MIN/1.73 SQ M.PREDICTED >90.0 Normal >60.0 [facility] Comment on above: Result Comment: Calc ulation based on the Chronic Kidney Disease Epidemiology Collaboration (CKD-EPI) equation refit without adjustment for race Performed By: #### L AB15 ####Director Consumer: SHAHLA WARREN ([phone])[facility] [place] [address] [place] Glucose [Mass/Vol] 184 mg/dL High 74-100 [facility] Comment on above: Performed By: #### L AB15 ####Director Consumer: SHAHLA WARREN ([phone])[facility] [place] [address] Potassium [Moles/Vol] 3.2 mmol/L Low 3.5-5.1 [facility] Comment on above: Result Comment: [facility] potassium values may be up to 0.5 mmol/L lower than serum values. Performed By: #### L AB15 ####Director Consumer: SHAHLA WARREN ([phone])[facility] [place] [address] [place] Sodium [Moles/Vol] 154 mmol/L High 136-145 [facility] Comment on above: Performed By: #### L AB15 ####Director Consumer: SHAHLA WARREN ([phone])[facility] ([facility])[address] [place] [address] Urea nitrogen [Mass/Vol] 31 mg/dL High 8-21 [facility] Comment on above: Performed By: #### L AB15 ####Director Consumer: SHAHLA WARREN ([phone])[facility] [place] [address] Anion gap [Moles/Vol] 13 mmol/L Normal 3-13 [facility] Comment on above: Performed By: #### L AB15 ####Director Consumer: SHAHLA WARREN ([phone])[facility] [place] [address] [place] Calcium [Mass/Vol] 9.3 mg/dL Normal 8.4-10.2 [facility] Comment on above: Performed By: #### L AB15 ####Director Consumer: SHAHLA WARREN ([phone])[facility] ([facility])[address] [place] [address] [place] Chloride [Moles/Vol] 109 mmol/L High 98-107 [facility] Comment on above: Performed By: #### L AB15 ####Director Consumer: SHAHLA WARREN ([phone])[facility] ([facility])[address] [place] [address] CO2 [Moles/Vol] 32 mmol/L High 22-29 [facility] Comment on above: Performed By: #### L AB15 ####Director Consumer: SHAHLA WARREN ([phone])[facility] ([facility])[address] [place] [address] Creatinine [Mass/Vol] 1.11 mg/dL Normal 0.72-1.25 [facility] Comment on above: Performed By: #### L AB15 ####Director Consumer: SHAHLA WARREN ([phone])[facility] ([facility])[address] [place] [address] GLOMERULAR FILTRATION RATE ML/MIN/1.73 SQ M.PREDICTED 88.8 mL/min/1.73m*2 Normal >60.0 [facility] Comment on above: Result Comment: Calc ulation based on the Chronic Kidney Disease Epidemiology Collaboration (CKD-EPI) equation refit without adjustment for race Performed By: #### L AB15 ####Director Consumer: SHAHLA WARREN ([phone])[facility] ([facility])[address] [place] [address] [place] Glucose [Mass/Vol] 214 mg/dL High 74-100 [facility] Comment on above: Performed By: #### L AB15 ####Director Consumer: SHAHLA WARREN ([phone])[facility])[address] [place] [address] Potassium [Moles/Vol] 3.0 mmol/L Low 3.5-5.1 [facility] Comment on above: Result Comment: [facility] potassium values may be up to 0.5 mmol/L lower than serum values. Performed By: #### L AB15 ####Director Consumer: SHAHLA WARREN ([phone])[facility] ([facility])[address] [place] [address] [place] Sodium [Moles/Vol] 154 mmol/L High 136-145 [facility] Comment on above: Performed By: #### L AB15 ####Director Consumer: SHAHLA WARREN ([phone])[facility] [place] [address] [place] Urea nitrogen [Mass/Vol] 31 mg/dL High 8-21 [facility] Comment on above: Performed By: #### L AB15 ####Director Consumer: SHAHLA WARREN ([phone])[facility] ([facility])[address] [place], [place] [address] [place] [address] Anion gap [Moles/Vol] 10 mmol/L Normal 3-13 [facility] Comment on above: Performed By: #### L AB15, [id number], HBN293 ####Director Consumer: SHAHLA WARREN ([phone])[facility])[address] [place] [address] Calcium [Mass/Vol] 8.7 mg/dL Normal 8.4-10.2 [facility] Comment on above: Performed By: #### L AB15, [id number], IIG692 ####Director Consumer: SHAHLA WARREN ([phone])[facility])[address] [place] [address] [place] Chloride [Moles/Vol] 109 mmol/L High 98-107 [facility] Comment on above: Performed By: #### L AB15, [id number], LPU617 ####Director Consumer: SHAHLA WARREN ([phone])[facility] ([facility])[address] [place] [address] [place] CO2 [Moles/Vol] 34 mmol/L High 22-29 [facility] Comment on above: Performed By: #### L AB15, [id number], CEV808 ####Director Consumer: SHAHLA WARREN ([phone])[facility])[address] [place] [address] [place] Creatinine [Mass/Vol] 1.05 mg/dL Normal 0.72-1.25 [facility] Comment on above: Performed By: #### L AB15, [id number], AQE840 ####Director Consumer: SHAHLA WARREN ([phone])[facility])[address] [place] [address] [place] GLOMERULAR FILTRATION RATE ML/MIN/1.73 SQ M.PREDICTED >90.0 Normal >60.0 [facility] Comment on above: Result Comment: Calc ulation based on the Chronic Kidney Disease Epidemiology Collaboration (CKD-EPI) equation refit without adjustment for race Performed By: #### L AB15, [id number], [id number] ####Director Consumer: SHAHLA WARREN ([phone])[facility] ([facility])[address] [place] [address] Glucose [Mass/Vol] 132 mg/dL High 74-100 [facility] Comment on above: Performed By: #### L AB15, AKY977, JSA232 ####Director Consumer: SHAHLA WARREN ([phone])[facility])[address] [place] [address] Potassium [Moles/Vol] 2.8 mmol/L Low 3.5-5.1 [facility] Comment on above: Result Comment: [facility] potassium values may be up to 0.5 mmol/L lower than serum values. Performed By: #### L AB15, VJP234, TXV077 ####Director Consumer: SHAHLA WARREN ([phone])[facility] ([facility])[address] [place] [address] [place] Sodium [Moles/Vol] 153 mmol/L High 136-145 [facility] Comment on above: Performed By: #### L AB15, VMQ435, MNI713 ####Director Consumer: SHAHLA WARREN ([phone])[facility])[address] [place] [address] [place] Urea nitrogen [Mass/Vol] 27 mg/dL High 8-21 [facility] Comment on above: Performed By: #### L AB15, [id number], [id number] ####Director Consumer: SHAHLA WARREN ([phone])[facility])[address] [place] [address] Anion gap [Moles/Vol] 11 mmol/L Normal 3-13 [facility] Comment on above: Performed By: #### L AB15, GRB849, WCR623 ####Director Consumer: SHAHLA [phone])[facility] ([facility])[address] [place] [address] [place] Calcium [Mass/Vol] 8.7 mg/dL Normal 8.4-10.2 [facility] Comment on above: Performed By: #### L AB15, WFS326, VQN093 ####Director Consumer: SHAHLA WARREN ([phone])[facility])[address] [place] [address] [place] Chloride [Moles/Vol] 110 mmol/L High 98-107 [facility] Comment on above: Performed By: #### L AB15, ASX088, WHB781 ####Director Consumer: SHAHLA WARREN ([phone])[facility])[address] [place] [address] CO2 [Moles/Vol] 33 mmol/L High 22-29 [facility] Comment on above: Performed By: #### L AB15, UUZ002, QIV419 ####Director Consumer: SHAHLA WARREN ([phone])[facility] [place] [address] Creatinine [Mass/Vol] 1.16 mg/dL Normal 0.72-1.25 [facility] Comment on above: Performed By: #### L AB15, [id number], IMZ110 ####Director Consumer: SHAHLA WARREN ([phone])[facility])[address] [place] [address] [place] GLOMERULAR FILTRATION RATE ML/MIN/1.73 SQ M.PREDICTED 84.2 mL/min/1.73m*2 Normal >60.0 [facility] Comment on above: Result Comment: Calc ulation based on the Chronic Kidney Disease Epidemiology Collaboration (CKD-EPI) equation refit without adjustment for race Performed By: #### L AB15, VCB063, IIW583 ####Director Consumer: SHAHLA WARREN ([phone])[facility])[address] [place] [address] [place] Glucose [Mass/Vol] 109 mg/dL High 74-100 [facility] Comment on above: Performed By: #### L AB15, SLH283, VWQ382 ####Director Consumer: SHAHLA WARREN ([phone])[facility] ([facility])[address] [place] [address] Potassium [Moles/Vol] 3.3 mmol/L Low 3.5-5.1 [facility] Comment on above: Result Comment: [facility] potassium values may be up to 0.5 mmol/L lower than serum values. Performed By: #### L AB15, VIZ723, IAC765 ####Director Consumer: SHAHLA WARREN ([phone])[facility] ([facility])[address] [place] [address] Sodium [Moles/Vol] 154 mmol/L High 136-145 [facility] Comment on above: Performed By: #### L AB15, DBR880, QKN816 ####Director Consumer: SHAHLA WARREN ([phone])[facility])[address] [place] [address] Urea nitrogen [Mass/Vol] 25 mg/dL High 8-21 [facility] Comment on above: Performed By: #### L AB15, IQE630, [id number] ####Director Consumer: SHAHLA WARREN ([phone])[facility])[address] [place] [address] BLOOD GAS ARTERIALon 025 AMOUNT OF OXYGEN 60 Normal [facility] Comment on above: Order Comment: While on ventilator Performed By: #### L AB76 ####Director Consumer: SHAHLA WARREN ([phone])[facility])[address] [place] [address] Base excess Calc (Bld) [Moles/Vol] 11.9 mmol/L High -3.0-3.0 [facility] Comment on above: Order Comment: While on ventilator Performed By: #### L AB76 ####Director Consumer: SHAHLA WARREN ([phone])[facility] ([facility])[address] [place] [address] [place] CO2 [Moles/Vol] 37.0 mmol/L High 23.0-27.0 [facility] Comment on above: Order Comment: While on ventilator Performed By: #### L AB76 ####Director Consumer: SHAHLA WARREN ([phone])[facility])[address] [place] [address] HCO3 (Bld) [Moles/Vol] 35.7 mmol/L High 21.0-25.0 [facility] Comment on above: Order Comment: While on ventilator Performed By: #### L AB76 ####Director Consumer: SHAHLA WARREN ([phone])[facility])[address] [place] [address] Hemoglobin (Bld) [Mass/Vol] 10.8 g/dL Normal Screen only [facility] Comment on above: Order Comment: While on ventilator Performed By: #### L AB76 ####Director Consumer: SHAHLA WARREN ([phone])[facility] [place] [address] OXYGEN SATURATION (%) IN ARTERIAL BLOOD 93.1 % Low 95.0-100.0 [facility] Comment on above: Order Comment: While on ventilator Performed By: #### L AB76 ####Director Consumer: SHAHLA WARREN ([phone])[facility])[address] [place] [address] PCO2 ARTERIAL 43.4 mm Hg Normal >35.0-<45.0 [facility] Comment on above: Order Comment: While on ventilator Performed By: #### L AB76 ####Director Consumer: SHAHLA WARREN ([phone])[facility])[address] [place] [address] PH ARTERIAL 7.533 High 7.350-7.450 [facility] Comment on above: Order Comment: While on ventilator Performed By: #### L AB76 ####Director Consumer: SHAHLA WARREN ([phone])[facility])[address] [place] [address] PO2 ARTERIAL 66.5 mm Hg Low 80.0-100.0 [facility] Comment on above: Order Comment: While on ventilator Performed By: #### L AB76 ####Director Consumer: SHAHLA WARREN ([phone])[facility])[address] [place] [address] SOURCE OF OXYGEN Ventilator Normal [facility] Comment on above: Order Comment: While on ventilator Performed By: #### L AB76 ####Director Consumer: SHAHLA WARREN ([phone])[facility])[address] [place] [address] AMOUNT OF OXYGEN 50 Normal [facility] Comment on above: Order Comment: While on ventilator Performed By: #### L AB76 ####Director Consumer: SHAHLA WARREN ([phone])[facility])[address] [place] [address] Base excess Calc (Bld) [Moles/Vol] 11.9 mmol/L High -3.0-3.0 [facility] Comment on above: Order Comment: While on ventilator Performed By: #### L AB76 ####Director Consumer: SHAHLA WARREN ([phone])[facility])[address] [place] [address] CO2 [Moles/Vol] 36.4 mmol/L High 23.0-27.0 [facility] Comment on above: Order Comment: While on ventilator Performed By: #### L AB76 ####Director Consumer: SHAHLA WARREN ([phone])[facility])[address] [place] [address] HCO3 (Bld) [Moles/Vol] 35.2 mmol/L High 21.0-25.0 [facility] Comment on above: Order Comment: While on ventilator Performed By: #### L AB76 ####Director Consumer: SHAHLA WARREN ([phone])[facility])[address] [place] [address] Hemoglobin (Bld) [Mass/Vol] 10.2 g/dL Normal Screen only [facility] Comment on above: Order Comment: While on ventilator Performed By: #### L AB76 ####Director Consumer: SHAHLA WARREN ([phone])[facility])[address] [place] [address] OXYGEN SATURATION (%) IN ARTERIAL BLOOD 89.2 % Low 95.0-100.0 [facility] Comment on above: Order Comment: While on ventilator Performed By: #### L AB76 ####Director Consumer: SHAHLA WARREN ([phone])[facility])[address] [place] [address] PCO2 ARTERIAL 40.3 mm Hg Normal >35.0-<45.0 [facility] Comment on above: Order Comment: While on ventilator Performed By: #### L AB76 ####Director Consumer: SHAHLA WARREN ([phone])[facility] [place] [address] PH ARTERIAL 7.559 High 7.350-7.450 [facility] Comment on above: Order Comment: While on ventilator Performed By: #### L AB76 ####Director Consumer: SHAHLA WARREN ([phone])[facility] [place] [address] PO2 ARTERIAL 56.3 mm Hg Low 80.0-100.0 [facility] Comment on above: Order Comment: While on ventilator Performed By: #### L AB76 ####Director Consumer: SHAHLA WARREN ([phone])[facility] [place] [address] SOURCE OF OXYGEN Ventilator Normal [facility] Comment on above: Order Comment: While on ventilator Performed By: #### L AB76 ####Director Consumer: SHAHLA WARREN ([phone])[facility] [place] [address] AMOUNT OF OXYGEN 60 Normal [facility] Comment on above: Order Comment: While on ventilator Performed By: #### L AB76 ####Director Consumer: SHAHLA WARREN ([phone])[facility] [place] [address] [place] Base excess Calc (Bld) [Moles/Vol] 12.5 mmol/L High -3.0-3.0 [facility] Comment on above: Order Comment: While on ventilator Performed By: #### L AB76 ####Director Consumer: SHAHLA WARREN ([phone])[facility])[address] [place] [address] CO2 [Moles/Vol] 38.1 mmol/L High 23.0-27.0 [facility] Comment on above: Order Comment: While on ventilator Performed By: #### L AB76 ####Director Consumer: SHAHLA WARREN ([phone])[facility] [place] [address] HCO3 (Bld) [Moles/Vol] 36.7 mmol/L High 21.0-25.0 [facility] Comment on above: Order Comment: While on ventilator Performed By: #### L AB76 ####Director Consumer: SHAHLA WARREN ([phone])[facility] [place] [address] Hemoglobin (Bld) [Mass/Vol] 10.1 g/dL Normal Screen only [facility] Comment on above: Order Comment: While on ventilator Performed By: #### L AB76 ####Director Consumer: SHAHLA WARREN ([phone])[facility] [place] [address] OXYGEN SATURATION (%) IN ARTERIAL BLOOD 96.0 % Normal 95.0-100.0 [facility] Comment on above: Order Comment: While on ventilator Performed By: #### L AB76 ####Director Consumer: SHAHLA WARREN ([phone])[facility] [place] [address] [place] PCO2 ARTERIAL 45.5 mm Hg High >35.0-<45.0 [facility] Comment on above: Order Comment: While on ventilator Performed By: #### L AB76 ####Director Consumer: SHAHLA WARREN ([phone])[facility] [place] [address] PH ARTERIAL 7.524 High 7.350-7.450 [facility] Comment on above: Order Comment: While on ventilator Performed By: #### L AB76 ####Director Consumer: SHAHLA WARREN ([phone])[facility] [place] [address] PO2 ARTERIAL 89.6 mm Hg Normal 80.0-100.0 [facility] Comment on above: Order Comment: While on ventilator Performed By: #### L AB76 ####Director Consumer: SHAHLA WARREN ([phone])[facility] [place] [address] SOURCE OF OXYGEN Ventilator Normal [facility] Comment on above: Order Comment: While on ventilator Performed By: #### L AB76 ####Director Consumer: SHAHLA WARREN ([phone])[facility] [place] [address] AMOUNT OF OXYGEN 60 Normal [facility] Comment on above: Order Comment: While on ventilator Performed By: #### L [id number] ####Director Consumer: SHAHLA WARREN ([phone])[facility] ([facility])[address] [place] [address] Base excess Calc (Bld) [Moles/Vol] 12.6 mmol/L High -3.0-3.0 [facility] Comment on above: Order Comment: While on ventilator Performed By: #### L [id number] ####Director Consumer: SHAHLA WARREN ([phone])[facility])[address] [place] [address] CO2 [Moles/Vol] 37.7 mmol/L High 23.0-27.0 [facility] Comment on above: Order Comment: While on ventilator Performed By: #### L [id number] ####Director Consumer: SHAHLA WARREN ([phone])[facility] [place] [address] HCO3 (Bld) [Moles/Vol] 36.4 mmol/L High 21.0-25.0 [facility] Comment on above: Order Comment: While on ventilator Performed By: #### L [id number] ####Director Consumer: SHAHLA WARREN ([phone])[facility] ([facility])[address] [place] [address] Hemoglobin (Bld) [Mass/Vol] 10.5 g/dL Normal Screen only [facility] Comment on above: Order Comment: While on ventilator Performed By: #### L [id number] ####Director Consumer: SHAHLA WARREN ([phone])[facility] ([facility])[address] [place] [address] OXYGEN SATURATION (%) IN ARTERIAL BLOOD 90.2 % Low 95.0-100.0 [facility] Comment on above: Order Comment: While on ventilator Performed By: #### L [id number] ####Director Consumer: SHAHLA WARREN ([phone])[facility] ([facility])[address] [place] [address] PCO2 ARTERIAL 43.2 mm Hg Normal >35.0-<45.0 [facility] Comment on above: Order Comment: While on ventilator Performed By: #### L [id number] ####Director Consumer: SHAHLA WARREN ([phone])[facility] ([facility])[address] [place] [address] PH ARTERIAL 7.543 High 7.350-7.450 [facility] Comment on above: Order Comment: While on ventilator Performed By: #### L [id number] ####Director Consumer: SHAHLA WARREN ([phone])[facility] ([facility])[address] [place] [address] PO2 ARTERIAL 58.5 mm Hg Low 80.0-100.0 [facility] Comment on above: Order Comment: While on ventilator Performed By: #### L [id number] ####Director Consumer: SHAHLA WARREN ([phone])[facility] ([facility])[address] [place] [address] SOURCE OF OXYGEN Ventilator Normal [facility] Comment on above: Order Comment: While on ventilator Performed By: #### L [id number] ####Director Consumer: SHAHLA WARREN ([phone])[facility] ([facility])[address] [place] [address] AMOUNT OF OXYGEN 60 Normal [facility] Comment on above: Order Comment: While on ventilator Performed By: #### L [id number] ####Director Consumer: SHAHLA WARREN ([phone])[facility] ([facility])[address] [place] [address] Base excess Calc (Bld) [Moles/Vol] 12.4 mmol/L High -3.0-3.0 [facility] Comment on above: Order Comment: While on ventilator Performed By: #### L [id number] ####Director Consumer: SHAHLA WARREN ([phone])[facility] ([facility])[address] [place] [address] CO2 [Moles/Vol] 39.9 mmol/L High 23.0-27.0 [facility] Comment on above: Order Comment: While on ventilator Performed By: #### L [id number] ####Director Consumer: SHAHLA WARREN ([phone])[facility] ([facility])[address] [place] [address] HCO3 (Bld) [Moles/Vol] 38.3 mmol/L High 21.0-25.0 [facility] Comment on above: Order Comment: While on ventilator Performed By: #### L [id number] ####Director Consumer: SHAHLA WARREN ([phone])[facility] ([facility])[address] [place] [address] Hemoglobin (Bld) [Mass/Vol] 13.3 g/dL Normal Screen only [facility] Comment on above: Order Comment: While on ventilator Performed By: #### L [id number] ####Director Consumer: SHAHLA WARREN ([phone])[facility] ([facility])[address] [place] [address] OXYGEN SATURATION (%) IN ARTERIAL BLOOD 93.3 % Low 95.0-100.0 [facility] Comment on above: Order Comment: While on ventilator Performed By: #### L [id number] ####Director Consumer: SHAHLA WARREN ([phone])[facility] ([facility])[address] [place] [address] PCO2 ARTERIAL 54.4 mm Hg High >35.0-<45.0 [facility] Comment on above: Order Comment: While on ventilator Performed By: #### L [id number] ####Director Consumer: SHAHLA WARREN ([phone])[facility] [place] [address] PH ARTERIAL 7.465 High 7.350-7.450 [facility] Comment on above: Order Comment: While on ventilator Performed By: #### L [id number] ####Director Consumer: SHAHLA WARREN ([phone])[facility] ([facility])[address] [place] [address] PO2 ARTERIAL 70.5 mm Hg Low 80.0-100.0 [facility] Comment on above: Order Comment: While on ventilator Performed By: #### L [id number] ####Director Consumer: SHAHLA WARREN ([phone])[facility] ([facility])[address] [place] [address] SOURCE OF OXYGEN Ventilator Normal [facility] Comment on above: Order Comment: While on ventilator Performed By: #### L [id number] ####Director Consumer: SHAHLA WARREN ([phone])[facility] ([facility])[address] [place] [address] Bacteria identified Cx Nom ( Bld)on 12-30-2024 Interpretation and review of laboratory results Normal [facility] metabolic 1998 panelon 12-30-2024 Anion gap [Moles/Vol] 13 mmol/L 3 - 13 mmol/L [facility] Calcium [Mass/Vol] 9.3 mg/dL 8.4 - 10. 2 mg/dL [facility] Chloride [Moles/Vol] 109 mmol/L High 98 - 10 7 mmol/L [facility] CO2 [Moles/Vol] 32 mmol/L High 22 - 29 mmol/L [facility] Creatinine [Mass/Vol] 1.11 mg/dL 0.72 - 1.25 mg/dL [facility] GFR/1.73 sq M.predicted (S/P/Bld) [Vol rate/Area] 88.8 mL/min - PINF [facility] Glucose [Mass/Vol] 214 mg/dL High 74 - 100 mg/dL [facility] Interpretation and review of laboratory results Abnormal [facility] Potassium [Moles/Vol] 3 mmol/L Low 3.5 - 5.1 mmol/L [facility] Sodium [Moles/Vol] 154 mmol/L High 136 - 145 mmol/L [facility] Urea nitrogen [Mass/Vol] 31 mg/dL High 8 - 21 mg/dL [facility] Anion gap [Moles/Vol] 10 mmol/L 3 - 13 mmol/L [facility] Calcium [Mass/Vol] 8.7 mg/dL 8.4 - 10. 2 mg/dL [facility] Chloride [Moles/Vol] 109 mmol/L High 98 - 10 7 mmol/L [facility] CO2 [Moles/Vol] 34 mmol/L High 22 - 29 mmol/L [facility] Creatinine [Mass/Vol] 1.05 mg/dL 0.72 - 1.25 mg/dL [facility] GFR/1.73 sq M.predicted (S/P/Bld) [Vol rate/Area] - PINF [facility] Glucose [Mass/Vol] 132 mg/dL High 74 - 100 mg/dL [facility] Potassium [Moles/Vol] 2.8 mmol/L Low 3.5 - 5.1 mmol/L [facility] Sodium [Moles/Vol] 153 mmol/L High 136 - 145 mmol/L [facility] Urea nitrogen [Mass/Vol] 27 mg/dL High 8 - 21 mg/dL [facility] Anion gap [Moles/Vol] 11 mmol/L 3 - 13 mmol/L [facility] Calcium [Mass/Vol] 8.7 mg/dL 8.4 - 10. 2 mg/dL [facility] Chloride [Moles/Vol] 110 mmol/L High 98 - 10 7 mmol/L [facility] CO2 [Moles/Vol] 33 mmol/L High 22 - 29 mmol/L [facility] Creatinine [Mass/Vol] 1.16 mg/dL 0.72 - 1.25 mg/dL [facility] GFR/1.73 sq M.predicted (S/P/Bld) [Vol rate/Area] 84.2 mL/min - PINF [facility] Glucose [Mass/Vol] 109 mg/dL High 74 - 100 mg/dL [facility] Interpretation and review of laboratory results Abnormal [facility] Potassium [Moles/Vol] 3.3 mmol/L Low 3.5 - 5.1 mmol/L [facility] Sodium [Moles/Vol] 154 mmol/L High 136 - 145 mmol/L [facility] Urea nitrogen [Mass/Vol] 25 mg/dL High 8 - 21 mg/dL [facility] Bedside Glucoseon 12-30-2024 [place]ICK GLU 84 mg/dL Normal 74-106 [facility] Comment on above: Result Comment: MEMO LOPEZ OF PATIENT CARE PER NURSING PROTOCOL Performed By: #### L [id number] #### [facility] [address] [place], [place], [address] CALCIUM, IONIZEDon CALCIUM IONIZED 3.80 mg/dL Low 4.30-5.20 [facility] Comment on above: Performed By: #### L [id number] ####Director Consumer: SHAHLA WARREN ([phone])[facility] ([facility])[address] [place] [address] PH, IONIZED CALCIUM 7.64 High 7.31-7.46 [facility] Comment on above: Performed By: #### L AB54 ####Director Consumer: SHAHLA WARREN ([phone])[facility])[address] [place] [address] CBC W Auto Differential pane l (Bld)on 12-30-2024 Erythrocyte distribution width (RBC) [Ratio] 14.6 % 11.5 - 15.0 % [facility] Hematocrit (Bld) [Volume fraction] 27.3 % Low 40.0 - 52.0 % [facility] Hemoglobin (Bld) [Mass/Vol] 9.4 g/dL Low 13.0 - 18.0 g/dL [facility] Interpretation and review of laboratory results Abnormal [facility] MCH (RBC) [Entitic mass] 31.1 pg 26.0 - 34.0 pg [facility] MCHC (RBC) [Mass/Vol] 34.4 % 30.5 - 36.0 % [facility] MCV (RBC) [Entitic vol] 90.4 fL 77.0 - 99.0 fL [facility] Platelet mean volume (Bld) [Entitic vol] 10.3 fL 9.0 - 12.7 fL [facility] Platelets (Bld) [#/Vol] 168 10*3/uL 140 - 440 10*3/uL [facility] RBC (Bld) [#/Vol] 3.02 10*6/uL Low 4.40 - 5.9 0 10*6/uL [facility] WBC (Bld) [#/Vol] 13.8 10*3/uL High 3.6 - 10.7 10*3/uL [facility] CBC WITH AUTO DIFFERENTIALon 12-30-2024 Erythrocyte distribution width (RBC) [Ratio] 14.6 % Normal 11.5-15.0 [facility] Comment on above: Performed By: #### L [id number], [id number] ####Director Consumer: SHAHLA WARREN ([phone])[address] Hematocrit (Bld) [Volume fraction] 27.3 % Low 40.0-52.0 [facility] Comment on above: Performed By: #### L [id number], [id number] ####Director Consumer: SHAHLA WARREN ([phone])[address] Hemoglobin (Bld) [Mass/Vol] 9.4 g/dL Low 13.0-18.0 [facility] Comment on above: Performed By: #### L [id number], [id number] ####Director Consumer: HSAHLA WARREN ([phone])[facility])[address] [place] [address] MCH (RBC) [Entitic mass] 31.1 pg Normal 26.0-34.0 [facility] Comment on above: Performed By: #### L [id number], [id number] ####Director Consumer: SHAHLA WARREN ([phone])[facility])[address] [place] [address] MCHC 34.4 % Normal 30.5-36.0 [facility] Comment on above: Performed By: #### L [id number], [id number] ####Director Consumer: SHAHLA WARREN ([phone])[facility] ([facility])[address] [place] [address] MCV (RBC) [Entitic vol] 90.4 fL Normal 77.0-99.0 [facility] Comment on above: Performed By: #### L [id number], [id number] ####Director Consumer: SHAHLA WARREN ([phone])[facility] ([facility])[address] [place] [address] Platelet mean volume (Bld) [Entitic vol] 10.3 fL Normal 9.0-12.7 [facility] Comment on above: Performed By: #### L [id number], [id number] ####Director Consumer: SHAHLA WARREN ([phone])[facility] ([facility])[address] [place] [address] Platelets (Bld) [#/Vol] 168 10*3/uL Normal 140-440 [facility] Comment on above: Performed By: #### L [id number], [id number] ####Director Consumer: SHAHLA WARREN ([phone])[facility] ([facility])[address] [place] [address] RBC (Bld) [#/Vol] 3.02 10*6/uL Low 4.40-5.90 [facility] Comment on above: Performed By: #### L [id number], [id number] ####Director Consumer: SHAHLA WARREN ([phone])[facility] ([facility])[address] [place] [address] WBC (Bld) [#/Vol] 13.8 10*3/uL High 3.6-10.7 [facility] Comment on above: Performed By: #### L [id number], [id number] ####Director Consumer: SHAHLA WARREN ([phone])[facility] ([facility])[address] [place] [address] COMPREHENSIVE METABOLIC PANE Clifford 12-30-2024 Albumin [Mass/Vol] 2.5 g/dL Low 3.5-5.0 [facility] Comment on above: Performed By: #### Prem ABMaria Teresa, LAB17, [id number] ####Director Consumer: SHAHLA WARREN ([phone])[facility] ([facility])[address] [place] [address] ALP [Catalytic activity/Vol] 72 U/L Normal 40-150 [facility] Comment on above: Performed By: #### Prem DIALLO, LAB17, [id number] ####Director Consumer: SHAHLA WARREN ([phone])[facility] ([facility])[address] [place] [address] ALT [Catalytic activity/Vol] 118 U/L High <40 [facility] Comment on above: Performed By: #### Prem DIALLO, LAB17, [id number] ####Director Consumer: SHAHLA WARREN ([phone])[facility] ([facility])[address] [place] [address] Anion gap [Moles/Vol] 11 mmol/L Normal 3-13 [facility] Comment on above: Performed By: #### Prem DIALLO, LAB17, [id number] ####Director Consumer: SHAHLA WARREN ([phone])[facility] ([facility])[address] [place] [address] AST [Catalytic activity/Vol] 119 U/L High <34 [facility] Comment on above: Performed By: #### Prem DIALLO, LAB17, [id number] ####Director Consumer: SHAHLA WARREN ([phone])[facility] ([facility])[address] [place] [address] Bilirubin [Mass/Vol] 0.5 mg/dL Normal <1.2 [facility] Comment on above: Performed By: #### Prem ABMaria Teresa, LAB17, [id number] ####Director Consumer: SHAHLA WARREN ([phone])[facility] ([facility])[address] [place] [address] Calcium [Mass/Vol] 8.8 mg/dL Normal 8.4-10.2 [facility] Comment on above: Performed By: #### Prem DIALLO, LAB17, [id number] ####Director Consumer: SHAHLA WARREN ([phone])[facility] [place] [address] Chloride [Moles/Vol] 109 mmol/L High 98-107 [facility] Comment on above: Performed By: #### Prem DIALLO, LAB17, [id number] ####Director Consumer: SHAHLA WARREN ([phone])[facility])[address] [place] [address] CO2 [Moles/Vol] 33 mmol/L High 22-29 [facility] Comment on above: Performed By: #### Prem DIALLO, LAB17, [id number] ####Director Consumer: SHAHLA WARREN ([phone])[facility] ([facility])[address] [place] [address] Creatinine [Mass/Vol] 1.09 mg/dL Normal 0.72-1.25 [facility] Comment on above: Performed By: #### Prem DIALLO, LAB17, [id number] ####Director Consumer: SHAHLA WARREN ([phone])[facility] ([facility])[address] [place] [address] GLOMERULAR FILTRATION RATE ML/MIN/1.73 SQ M.PREDICTED >90.0 Normal >60.0 [facility] Comment on above: Result Comment: Calc ulation based on the Chronic Kidney Disease Epidemiology Collaboration (CKD-EPI) equation refit without adjustment for race Performed By: #### Prem AB103, LAB17, [id number] ####Director Consumer: SHAHLA WARREN ([phone])[facility] ([facility])[address] [place] [address] [place] Glucose [Mass/Vol] 154 mg/dL High 74-100 [facility] Comment on above: Performed By: #### Prem AB103, LAB17, [id number] ####Director Consumer: SHAHLA [phone])[facility])[address] [place] [address] [place] Potassium [Moles/Vol] 3.0 mmol/L Low 3.5-5.1 [facility] Comment on above: Result Comment: [facility] potassium values may be up to 0.5 mmol/L lower than serum values. Performed By: #### L AB103, LAB17, [id number] ####Director Consumer: SHAHLA WARREN ([phone])[facility] ([facility])[address] [place] [address] Protein [Mass/Vol] 6.7 g/dL Normal 6.4-8.3 [facility] Comment on above: Performed By: #### L AB103, LAB17, [id number] ####Director Consumer: SHAHLA WARREN ([phone])[facility] ([facility])[address] [place] [address] Sodium [Moles/Vol] 153 mmol/L High 136-145 [facility] Comment on above: Performed By: #### L AB103, LAB17, [id number] ####Director Consumer: SHAHLA WARREN ([phone])[facility] ([facility])[address] [place] [address] Urea nitrogen [Mass/Vol] 27 mg/dL High 8-21 [facility] Comment on above: Performed By: #### L AB103, LAB17, [id number] ####Director Consumer: SHAHLA WARREN ([phone])[facility])[address] [place] [address] Calcium.ionized [Moles/Vol]o n 12-30-2024 Calcium.ionized (Bld) [Moles/Vol] 3.8 mg/dL Low 4.30 - 5.20 mg/dL [facility] Interpretation and review of laboratory results Abnormal [facility] PH, IONIZED CALCIUM 7.64 High 7.31 - 7.46 [facility] Comprehensive metabolic 1998 panelon 12-30-2024 Albumin [Mass/Vol] 2.5 g/dL Low 3.5 - 5.0 g/dL [facility] ALP [Catalytic activity/Vol] 72 U/L 40 - 150 U/L [facility] ALT [Catalytic activity/Vol] 118 U/L High NINF - 40 U/L [facility] Anion gap [Moles/Vol] 11 mmol/L 3 - 13 mmol/L [facility] AST [Catalytic activity/Vol] 119 U/L High NINF - 34 U/L [facility] Bilirubin [Mass/Vol] 0.5 mg/dL NINF - 1.2 mg/dL [facility] Calcium [Mass/Vol] 8.8 mg/dL 8.4 - 10. 2 mg/dL [facility] Chloride [Moles/Vol] 109 mmol/L High 98 - 10 7 mmol/L [facility] CO2 [Moles/Vol] 33 mmol/L High 22 - 29 mmol/L [facility] Creatinine [Mass/Vol] 1.09 mg/dL 0.72 - 1.25 mg/dL [facility] GFR/1.73 sq M.predicted (S/P/Bld) [Vol rate/Area] - PINF [facility] Glucose [Mass/Vol] 154 mg/dL High 74 - 100 mg/dL [facility] Potassium [Moles/Vol] 3 mmol/L Low 3.5 - 5.1 mmol/L [facility] Protein [Mass/Vol] 6.7 g/dL 6.4 - 8.3 g/dL [facility] Sodium [Moles/Vol] 153 mmol/L High 136 - 145 mmol/L [facility] Urea nitrogen [Mass/Vol] 27 mg/dL High 8 - 21 mg/dL [facility] Laboratory - Chemistry and C hemistry - challengeon 12-30-2024 Glucose [Mass/Vol] 164 mg/dL High 70 - 100 mg/dL [facility] Base excess Calc (Bld) [Moles/Vol] 11.9 mmol/L High -3.0 - 3.0 mmol/L [facility] CO2 (Bld) [Partial pressure] 40.3 mm[Hg] - PINF [facility] CO2 [Moles/Vol] 36.4 mmol/L High 23.0 - 27.0 mmol/L [facility] HCO3 (Bld) [Moles/Vol] 35.2 mmol/L High 21.0 - 25.0 mmol/L [facility] Oxygen (Bld) [Partial pressure] 56.3 mm[Hg] Low [facility] pH (Bld) 7.559 [pH] High 7.350 - 7.450 [facility] Glucose [Mass/Vol] 218 mg/dL High 70 - 100 mg/dL [facility] Glucose [Mass/Vol] 186 mg/dL High 70 - 100 mg/dL [facility] Magnesium [Mass/Vol] 2.5 mg/dL 1.6 - 2 .6 mg/dL [facility] Base excess Calc (Bld) [Moles/Vol] 12.5 mmol/L High -3.0 - 3.0 mmol/L [facility] CO2 (Bld) [Partial pressure] 45.5 mm[Hg] High - PINF [facility] CO2 [Moles/Vol] 38.1 mmol/L High 23.0 - 27.0 mmol/L [facility] HCO3 (Bld) [Moles/Vol] 36.7 mmol/L High 21.0 - 25.0 mmol/L [facility] Oxygen (Bld) [Partial pressure] 89.6 mm[Hg] [facility] pH (Bld) 7.524 [pH] High 7.350 - 7.450 [facility] Magnesium [Mass/Vol] 2.4 mg/dL 1.6 - 2 .6 mg/dL [facility] Base excess Calc (Bld) [Moles/Vol] 12.6 mmol/L High -3.0 - 3.0 mmol/L [facility] CO2 (Bld) [Partial pressure] 43.2 mm[Hg] - PINF [facility] CO2 [Moles/Vol] 37.7 mmol/L High 23.0 - 27.0 mmol/L [facility] HCO3 (Bld) [Moles/Vol] 36.4 mmol/L High 21.0 - 25.0 mmol/L [facility] Oxygen (Bld) [Partial pressure] 58.5 mm[Hg] Low [facility] pH (Bld) 7.543 [pH] High 7.350 - 7.450 [facility] Magnesium [Mass/Vol] 2.3 mg/dL 1.6 - 2 .6 mg/dL [facility] CO2 (Bld) [Partial pressure] 54.4 mm[Hg] High - PINF [facility] [facility] CO2 [Moles/Vol] 39.9 mmol/L High 23.0 - 27.0 mmol/L [facility] HCO3 (Bld) [Moles/Vol] 38.3 mmol/L High 21.0 - 25.0 mmol/L [facility] Oxygen (Bld) [Partial pressure] 70.5 mm[Hg] Low [facility] Laboratory - Hematology and Cell countson 12-30-2024 Hemoglobin (Bld) [Mass/Vol] 10.2 g/dL Screen only [facility] Hemoglobin (Bld) [Mass/Vol] 10.1 g/dL Screen only [facility] Hemoglobin (Bld) [Mass/Vol] 10.5 g/dL Screen only [facility] Laboratory - Microbiology an d Antimicrobial susceptibilityon 12-30-2024 Bacteria identified Cx Nom (Bld) No growth at 5 days [facility] MAGNESIUMon 12-30-2024 Magnesium [Mass/Vol] 2.5 mg/dL Normal 1.6-2.6 [facility] Comment on above: Result Comment: DARIO R COMMENTS:Higher values can be expected in females during menses. Performed By: #### L AB15, [id number], [id number] ####Director Consumer: SHAHLA WARREN ([phone])[address] Magnesium [Mass/Vol] 2.4 mg/dL Normal 1.6-2.6 [facility] Comment on above: Result Comment: DARIO R COMMENTS:Higher values can be expected in females during menses. Performed By: #### L AB103, [id number], [id number] ####Director Consumer: SHAHLA WARREN ([phone])[address] Magnesium [Mass/Vol] 2.3 mg/dL Normal 1.6-2.6 [facility] Comment on above: Result Comment: DARIO R COMMENTS:Higher values can be expected in females during menses. Performed By: #### L AB15, [id number], [id number] ####Director Consumer: SHAHLA WARREN ([phone])[facility])[address] [place] [address] MANUAL DIFFERENTIALon 2024 BAND NEUTROPHILS TOTAL PER COUNTED LEUKOCYTES BY MANUAL COUNT 37 Normal [facility] Comment on above: Performed By: #### L [id number], [id number] ####Director Consumer: SHAHLA WARREN ([phone])[facility] ([facility])[address] [place] [address] [place] BANDS 5.1 10*3/uL High <=0.0 [facility] Comment on above: Performed By: #### Prem [id number], [id number] ####Director Consumer: SHAHLA WARREN ([phone])[facility])[address] [place] [address] CELLS COUNTED TOTAL (#) IN BLOOD 100 Normal [facility] Comment on above: Performed By: #### Prem PETERSON, [id number] ####Director Consumer: SHAHLA WARREN ([phone])[facility])[address] [place] [address] DIFFERENTIAL METHOD Manual differential performed Normal [facility] Comment on above: Result Comment: DARIO Wylie COMMENTS:Slide sent for pathology reviewDifferential performed on albumin slide. Performed By: #### Prem PETERSON, [id number] ####Director Consumer: SHAHLA WARREN ([phone])[facility] ([facility])[address] [place] [address] LEUKOCYTES (10*3/UL) NUCLEATED ERYTHROCYTE ADJUST 13.8 10*3/uL High 3.6-10.7 [facility] Comment on above: Performed By: #### Prem [id number], [id number] ####Director Consumer: SHAHLA WARREN ([phone])[facility])[address] [place] [address] LYMPHOCYTES (10*3/UL) IN BLOOD BY MANUAL COUNT 1.5 10*3/uL Normal 1.0-4.3 [facility] Comment on above: Performed By: #### Prem [id number], [id number] ####Director Consumer: SHAHLA WARREN ([phone])[facility])[address] [place] [address] LYMPHOCYTES TOTAL PER COUNTED LEUKOCYTES BY MANUAL COUNT 11 Normal [facility] Comment on above: Performed By: #### Prem [id number], [id number] ####Director Consumer: SHAHLA WARREN ([phone])[facility] ([facility])[address] [place] [address] [place] LYMPHOCYTES/100 LEUKOCYTES IN BLOOD BY MANUAL COUNT 11 % Low 15-45 [facility] Comment on above: Performed By: #### L [id number], [id number] ####Director Consumer: SHAHLA WARREN ([phone])[facility] [place] [address] [place] METAMYELOCYTES (10*3/UL) IN BLOOD BY MANUAL COUNT 0.4 10*3/uL High <=0.0 [facility] Comment on above: Performed By: #### L [id number], [id number] ####Director Consumer: SHAHLA WARREN ([phone])[facility])[address] [place] [address] [place] METAMYELOCYTES TOTAL PER COUNTED LEUKOCYTES BY MANUAL COUNT 3 Normal [facility] Comment on above: Performed By: #### L [id number], [id number] ####Director Consumer: SHAHLA WARREN ([phone])[facility])[address] [place] [address] [place] METAMYELOCYTES/100 LEUKOCYTES IN BLOOD BY MANUAL COUNT 3 % High <=0 [facility] Comment on above: Performed By: #### L [id number], [id number] ####Director Consumer: SHAHLA WARREN ([phone])[facility])[address] [place] [address] [place] MONOCYTES (10*3/UL) IN BLOOD BY MANUAL COUNT 0.8 10*3/uL Normal 0.0-0.9 [facility] Comment on above: Performed By: #### L [id number], [id number] ####Director Consumer: SHAHLA WARREN ([phone])[facility] ([facility])[address] [place] [address] [place] MONOCYTES TOTAL PER COUNTED LEUKOCYTES BY MANUAL COUNT 6 Normal [facility] Comment on above: Performed By: #### L [id number], [id number] ####Director Consumer: SHAHLA WARREN ([phone])[facility] ([facility])[address] [place] [address] [place] MONOCYTES/100 LEUKOCYTES IN BLOOD BY MANUAL COUNT 6 % Normal 5-13 [facility] Comment on above: Performed By: #### L [id number], [id number] ####Director Consumer: SHAHLA WARREN ([phone])[facility])[address] [place] [address] [place] MYELOCYTES (10*3/UL) IN BLOOD BY MANUAL COUNT 0.4 10*3/uL High <=0.0 [facility] Comment on above: Performed By: #### L [id number], [id number] ####Director Consumer: SHAHLA WARREN ([phone])[facility] ([facility])[address] [place] [address] [place] MYELOCYTES COUNTED BY MANUAL COUNT 3 Normal [facility] Comment on above: Performed By: #### L [id number], [id number] ####Director Consumer: SHAHLA WARREN ([phone])[facility] ([facility])[address] [place] [address] [place] MYELOCYTES/100 LEUKOCYTES IN BLOOD BY MANUAL COUNT 3 % High <=0 [facility] Comment on above: Performed By: #### L [id number], [id number] ####Director Consumer: SHAHLA WARREN ([phone])[facility])[address] [place] [address] [place] NEUTROPHILS (SEGS+BANDS) (10*3/UL) BY MANUAL COUNT 10.6 10*3/uL High 1.8-7.0 [facility] Comment on above: Performed By: #### L [id number], [id number] ####Director Consumer: SHAHLA WARREN ([phone])[facility])[address] [place] [address] [place] NEUTROPHILS BAND FORM/100 LEUKOCYTES IN BLOOD BY MANUAL COUNT 37 % High <=0 [facility] Comment on above: Performed By: #### L [id number], [id number] ####Director Consumer: SHAHLA WARREN ([phone])[facility] ([facility])[address] [place] [address] [place] NEUTROPHILS TOTAL PER COUNTED LEUKOCYTES BY MANUAL COUNT 40 Normal [facility] Comment on above: Performed By: #### L [id number], [id number] ####Director Consumer: SHAHLA WARREN ([phone])[facility] ([facility])[address] [place] [address] NUCLEATED ERYTHROCYTES/100 LEUKOCYTES IN BLOOD BY MANUAL COUNT 14 % Normal [facility] Comment on above: Performed By: #### L [id number], [id number] ####Director Consumer: SHAHLA WARREN ([phone])[facility] ([facility])[address] [place] [address] PLATELET MORPHOLOGY IN BLOOD Normal Normal [facility] Comment on above: Performed By: #### Prem [id number], [id number] ####Director Consumer: SHAHLA WARREN ([phone])[facility] ([facility])[address] [place] [address] RBC MORPHOLOGY IN BLOOD Normal Normal [facility] Comment on above: Performed By: #### Prem [id number], [id number] ####Director Consumer: SHAHLA WARREN ([phone])[facility] ([facility])[address] [place] [address] [place] SEGEMENTED NEUTROPHILS/100 LEUKOCYTES BY MANUAL COUNT 40 % Normal 38-82 [facility] Comment on above: Performed By: #### Prem [id number], [id number] ####Director Consumer: SHAHLA WARREN ([phone])[facility] ([facility])[address] [place] [address] [place] SEGMENTED NEUTROPHILS (10*3/UL)IN BLOOD BY MANUAL COUNT 10.6 10*3/uL High 1.8-7.5 [facility] Comment on above: Performed By: #### L [id number], [id number] ####Director Consumer: SHAHLA WARREN ([phone])[facility] ([facility])[address] [place] [address] [place] SMUDGE CELLS PRESENCE IN BLOOD BY LIGHT MICROSCOPY Present Abnormal (none) [facility] Comment on above: Performed By: #### L [id number], [id number] ####Director Consumer: SHAHLA [phone])[facility] ([facility])[address] [place] [address] Magnesium [Mass/Vol]on 12-30 Interpretation and review of laboratory results Normal [facility] Interpretation and review of laboratory results Normal [facility] Manual differential performe d Ql (Bld)on 12-30-2024 Band form neutrophils (Bld) [#/Vol] 5.1 10*3/uL High NINF - 0.0 10*3/uL [facility] Band form neutrophils/100 WBC (Bld) 37 % High NINF - 0 % [facility] Bands Manual 37 [facility] Cells Counted Total (Bld) [#] 100 {cells} [facility] Differential Method Manual differential performed [facility] Interpretation and review of laboratory results Abnormal [facility] Lymphocytes (Bld) [#/Vol] 1.5 10*3/uL 1.0 - 4.3 10*3/uL [facility] Lymphocytes Manual 11 [facility] Lymphocytes/100 WBC (Bld) 11 % Low 15 - 45 % [facility] Metamyelocytes (Bld) [#/Vol] 0.4 10*3/uL High NINF - 0.0 10*3/uL [facility] Metamyelocytes Manual 3 [facility] Metamyelocytes/100 WBC (Bld) 3 % High NINF - 0 % [facility] Monocytes (Bld) [#/Vol] 0.8 10*3/uL 0.0 - 0.9 10*3/uL [facility] Monocytes Manual 6 [facility] alth Monocytes/100 WBC (Bld) 6 % 5 - 13 % [facility] Myelocytes (Bld) [#/Vol] 0.4 10*3/uL High NINF - 0.0 10*3/uL [facility] Myelocytes Manual 3 [facility] ealth Myelocytes/100 WBC (Bld) 3 % High NINF - 0 % [facility] Neutrophils (Bld) [#/Vol] 10.6 10*3/uL High 1.8 - 7.5 10*3/uL [facility] Neutrophils Manual 40 [facility] Nucleated RBC/100 WBC (Bld) [Ratio] 14 % [facility] Platelet morphology finding Nom (Bld) Normal [facility] RBC morphology finding Nom (Bld) Normal [facility] Segmented neutrophils/100 WBC (Bld) 40 % 38 - 82 % [facility] Smudge cells/100 WBC (Bld) Present Abnormal (none) per 100 WBCs [facility] WBC corrected for nucl RBC (Bld) [#/Vol] 13.8 10*3/uL High 3.6 - 10.7 10*3/uL [facility] No Panel Informationon 12-30 Interpretation and review of laboratory results Abnormal [facility] Amount Of Oxygen 50 [facility] alth Interpretation and review of laboratory results Abnormal [facility] Source Of Oxygen Ventilator [facility] alth [facility] Interpretation and review of laboratory results Abnormal [facility] Interpretation and review of laboratory results Abnormal [facility] Interpretation and review of laboratory results Abnormal [facility] Amount Of Oxygen 60 [facility] Interpretation and review of laboratory results Abnormal [facility] Source Of Oxygen Ventilator [facility] alth [facility] Interpretation and review of laboratory results Abnormal [facility] Amount Of Oxygen 60 [facility] Interpretation and review of laboratory results Abnormal [facility] Source Of Oxygen Ventilator [facility] Interpretation and review of laboratory results Normal [facility] PHOSPHORUSon 12-30-2024 Phosphate [Mass/Vol] 1.6 mg/dL Low 2.3-4.7 [facility] Comment on above: Performed By: #### L AB15, [id number], [id number] ####Director Consumer: SHAHLA WARREN ([phone])[address] Phosphate [Mass/Vol] 1.6 mg/dL Low 2.3-4.7 [facility] Comment on above: Performed By: #### L AB103, LAB17, [id number] ####Director Consumer: SHAHLA WARREN ([phone])[address] Phosphate [Mass/Vol] 2.7 mg/dL Normal 2.3-4.7 [facility] Comment on above: Performed By: #### L AB15, [id number], [id number] ####Director Consumer: SHAHLA WARREN ([phone])[facility] ([facility])[address] [place] [address] [place] Phosphate [Moles/Vol]on Phosphate [Mass/Vol] 1.6 mg/dL Low 2.3 - 4 .7 mg/dL [facility] Phosphate [Mass/Vol] 1.6 mg/dL Low 2.3 - 4 .7 mg/dL [facility] Phosphate [Mass/Vol] 2.7 mg/dL 2.3 - 4 .7 mg/dL [facility] Progress Noteon 12-30-2024 Progress Note Normal [facility] Progress Note Normal [facility] Progress Note Normal [facility] Progress Note Normal [facility] Progress [facility] XR CHEST 1 VIEWon 12-30-2024 XR CHEST 1 VIEW Normal [facility] XR Chest Single viewon 12-30 [facility]PART[facility] RADIOLOGY SYSTEM [facility] EMERGENCY DEPARTMENT RADIOLOGY SYSTEM [facility] Radiology Study observation (narrative) [facility] 30on 12-29-2024 30 Normal [facility] 30 Normal [facility] BASIC METABOLIC PANELon Anion gap [Moles/Vol] 13 mmol/L Normal 3-13 [facility] Comment on above: Performed By: #### L AB15, [id number], [id number] ####Director Consumer: SHAHLA WARREN ([phone])[facility])[address] [place] [address] [place] Calcium [Mass/Vol] 9.3 mg/dL Normal 8.4-10.2 [facility] Comment on above: Performed By: #### L AB15, [id number], [id number] ####Director Consumer: SHAHLA WARREN ([phone])[facility] ([facility])[address] [place] [address] [place] Chloride [Moles/Vol] 109 mmol/L High 98-107 [facility] Comment on above: Performed By: #### L AB15, [id number], [id number] ####Director Consumer: SHAHLA WARREN ([phone])[facility])[address] [place] [address] [place] CO2 [Moles/Vol] 36 mmol/L High 22-29 [facility] Comment on above: Performed By: #### L AB15, [id number], [id number] ####Director Consumer: SHAHLA WARREN ([phone])[facility])[address] [place] [address] Creatinine [Mass/Vol] 1.37 mg/dL High 0.72-1.25 [facility] Comment on above: Performed By: #### L AB15, [id number], WKJ125 ####Director Consumer: SHAHLA WARREN ([phone])[facility])[address] [place] [address] GLOMERULAR FILTRATION RATE ML/MIN/1.73 SQ M.PREDICTED 69.0 mL/min/1.73m*2 Normal >60.0 [facility] Comment on above: Result Comment: Calc ulation based on the Chronic Kidney Disease Epidemiology Collaboration (CKD-EPI) equation refit without adjustment for race Performed By: #### L AB15, OGK205, [id number] ####Director Consumer: SHAHLA WARREN ([phone])[facility] ([facility])[address] [place] [address] Glucose [Mass/Vol] 72 mg/dL Low 74-100 [facility] Comment on above: Performed By: #### L AB15, BXC432, [id number] ####Director Consumer: SHAHLA WARREN ([phone])[facility])[address] [place] [address] Potassium [Moles/Vol] 3.4 mmol/L Low 3.5-5.1 [facility] Comment on above: Result Comment: [facility] potassium values may be up to 0.5 mmol/L lower than serum values. Performed By: #### L AB15, [id number], [id number] ####Director Consumer: SHAHLA WARREN ([phone])[facility] ([facility])[address] [place] [address] Sodium [Moles/Vol] 158 mmol/L High 136-145 [facility] Comment on above: Performed By: #### L AB15, [id number], TZK914 ####Director Consumer: SHAHLA WARREN ([phone])[facility])[address] [place] [address] Urea nitrogen [Mass/Vol] 24 mg/dL High 8-21 [facility] Comment on above: Performed By: #### L AB15, [id number], [id number] ####Director Consumer: SHAHLA WARREN ([phone])[facility] ([facility])[address] [place] [address] Anion gap [Moles/Vol] 11 mmol/L Normal 3-13 [facility] Comment on above: Performed By: #### L AB15, WXQ201, VDY016 ####Director Consumer: SHAHLA WARREN ([phone])[facility])[address] [place] [address] Calcium [Mass/Vol] 8.9 mg/dL Normal 8.4-10.2 [facility] Comment on above: Performed By: #### L AB15, ZMW129, IGU244 ####Director Consumer: SHAHLA WARREN ([phone])[facility] ([facility])[address] [place] [address] [place] Chloride [Moles/Vol] 111 mmol/L High 98-107 [facility] Comment on above: Performed By: #### L AB15, [id number], [id number] ####Director Consumer: SHAHLA WARREN ([phone])[facility] ([facility])[address] [place] [address] [place] CO2 [Moles/Vol] 33 mmol/L High 22-29 [facility] Comment on above: Performed By: #### L AB15, [id number], OXC582 ####Director Consumer: SHAHLA WARREN ([phone])[facility])[address] [place] [address] [place] Creatinine [Mass/Vol] 1.26 mg/dL High 0.72-1.25 [facility] Comment on above: Performed By: #### L AB15, XRK517, WOS753 ####Director Consumer: SHAHLA WARREN ([phone])[facility])[address] [place] [address] GLOMERULAR FILTRATION RATE ML/MIN/1.73 SQ M.PREDICTED 76.3 mL/min/1.73m*2 Normal >60.0 [facility] Comment on above: Result Comment: Calc ulation based on the Chronic Kidney Disease Epidemiology Collaboration (CKD-EPI) equation refit without adjustment for race Performed By: #### L AB15, [id number], YSG366 ####Director Consumer: SHAHLA WARREN ([phone])[facility])[address] [place] [address] Glucose [Mass/Vol] 111 mg/dL High 74-100 [facility] Comment on above: Performed By: #### L AB15, SZM348, REG105 ####Director Consumer: SHAHLA WARREN ([phone])[facility])[address] [place] [address] Potassium [Moles/Vol] 3.8 mmol/L Normal 3.5-5.1 [facility] Comment on above: Result Comment: [facility] potassium values may be up to 0.5 mmol/L lower than serum values. Performed By: #### L AB15, [id number], [id number] ####Director Consumer: SHAHLA WARREN ([phone])[facility])[address] [place] [address] Sodium [Moles/Vol] 155 mmol/L High 136-145 [facility] Comment on above: Performed By: #### L AB15, RPA443, ZXA033 ####Director Consumer: SHAHLA WARREN ([phone])[facility])[address] [place] [address] [place] Urea nitrogen [Mass/Vol] 24 mg/dL High 8-21 [facility] Comment on above: Performed By: #### L AB15, FKM153, AZN234 ####Director Consumer: SHAHLA WARREN ([phone])[facility])[address] [place] [address] [place] Anion gap [Moles/Vol] 9 mmol/L Normal 3-13 [facility] Comment on above: Performed By: #### L AB15, NOD160, FEO290 ####Director Consumer: SHAHLA WARREN ([phone])[facility])[address] [place] [address] Calcium [Mass/Vol] 9.0 mg/dL Normal 8.4-10.2 [facility] Comment on above: Performed By: #### L AB15, XDH523, AEQ457 ####Director Consumer: SHAHLA WARREN ([phone])[facility] ([facility])[address] [place] [address] Chloride [Moles/Vol] 109 mmol/L High 98-107 [facility] Comment on above: Performed By: #### Prem ABPastora, ROC653, BKV011 ####Director Consumer: SHAHLA WARREN ([phone])[facility] ([facility])[address] [place] [address] CO2 [Moles/Vol] 36 mmol/L High 22-29 [facility] Comment on above: Performed By: #### Prem ABPastora, [id number], NDN750 ####Director Consumer: SHAHLA WARREN ([phone])[facility] ([facility])[address] [place] [address] Creatinine [Mass/Vol] 1.20 mg/dL Normal 0.72-1.25 [facility] Comment on above: Performed By: #### Prem AB15, EOZ004, JAB009 ####Director Consumer: SHAHLA WARREN ([phone])[facility])[address] [place] [address] GLOMERULAR FILTRATION RATE ML/MIN/1.73 SQ M.PREDICTED 80.9 mL/min/1.73m*2 Normal >60.0 [facility] Comment on above: Result Comment: Calc ulation based on the Chronic Kidney Disease Epidemiology Collaboration (CKD-EPI) equation refit without adjustment for race Performed By: #### L AB15, LDU149, JMD535 ####Director Consumer: SHAHLA WARREN ([phone])[facility] [place] [address] Glucose [Mass/Vol] 96 mg/dL Normal 74-100 [facility] Comment on above: Performed By: #### L AB15, FJA137, GBB094 ####Director Consumer: SHAHLA WARREN ([phone])[facility] [place] [address] Potassium [Moles/Vol] 3.6 mmol/L Normal 3.5-5.1 [facility] Comment on above: Result Comment: [facility] potassium values may be up to 0.5 mmol/L lower than serum values. Performed By: #### L AB15, CNF140, [id number] ####Director Consumer: SHAHLA WARREN ([phone])[facility] [facility] [place] [address] Sodium [Moles/Vol] 154 mmol/L High 136-145 [facility] Comment on above: Performed By: #### L AB15, [id number], [id number] ####Director Consumer: SHAHLA WARREN ([phone])[facility])[address] [place] [address] [place] Urea nitrogen [Mass/Vol] 22 mg/dL High 8-21 [facility] Comment on above: Performed By: #### L AB15, [id number], [id number] ####Director Consumer: SHAHLA WARREN ([phone])[facility] [place] [address] [place] Anion gap [Moles/Vol] 9 mmol/L Normal 3-13 [facility] Comment on above: Performed By: #### L AB96, LAB15, DQL033, DEG546 ####Director Consumer: SHAHLA WARREN ([phone])[facility] ([facility])[address] [place] [address] [place] Calcium [Mass/Vol] 8.5 mg/dL Normal 8.4-10.2 [facility] Comment on above: Performed By: #### L AB96, LAB15, UVM707, BGO393 ####Director Consumer: SHAHLA WARREN ([phone])[facility] ([facility])[address] [place] [address] [place] Chloride [Moles/Vol] 113 mmol/L High 98-107 [facility] Comment on above: Performed By: #### L AB96, LAB15, [id number], OCJ756 ####Director Consumer: SHAHLA WARREN ([phone])[facility] [place] [address] [place] CO2 [Moles/Vol] 34 mmol/L High 22-29 [facility] Comment on above: Performed By: #### L AB96, LAB15, TEX629, NVR271 ####Director Consumer: SHAHLA WARREN ([phone])[facility] ([facility])[address] [place] [address] Creatinine [Mass/Vol] 1.16 mg/dL Normal 0.72-1.25 [facility] Comment on above: Performed By: #### L AB96, LAB15, UQA906, UJL445 ####Director Consumer: SHAHLA WARREN ([phone])[facility] ([facility])[address] [place] [address] GLOMERULAR FILTRATION RATE ML/MIN/1.73 SQ M.PREDICTED 84.2 mL/min/1.73m*2 Normal >60.0 [facility] Comment on above: Result Comment: Calc ulation based on the Chronic Kidney Disease Epidemiology Collaboration (CKD-EPI) equation refit without adjustment for race Performed By: #### L AB96, LAB15, PMQ919, ZGW677 ####Director Consumer: SHAHLA WARREN ([phone])[facility] [place] [address] [place] Glucose [Mass/Vol] 98 mg/dL Normal 74-100 [facility] Comment on above: Performed By: #### L AB96, LAB15, IJX775, CUC031 ####Director Consumer: SHAHLA WARREN ([phone])[facility] [place] [address] [place] Potassium [Moles/Vol] 4.0 mmol/L Normal 3.5-5.1 [facility] Comment on above: Result Comment: [facility] potassium values may be up to 0.5 mmol/L lower than serum values. Performed By: #### L AB96, LAB15, LAM183, LTQ652 ####Director Consumer: SHAHLA WARREN ([phone])[facility] ([facility])[address] [place] [address] Sodium [Moles/Vol] 156 mmol/L High 136-145 [facility] Comment on above: Performed By: #### L AB96, LAB15, GEO781, GUR245 ####Director Consumer: SHAHLA WARREN ([phone])[facility] ([facility])[address] [place] [address] Urea nitrogen [Mass/Vol] 21 mg/dL Normal 8-21 [facility] Comment on above: Performed By: #### L AB96, LAB15, ERJ416, [id number] ####Director Consumer: SHAHLA WARREN ([phone])[facility] ([facility])[address] [place] [address] Anion gap [Moles/Vol] 10 mmol/L Normal 3-13 [facility] Comment on above: Performed By: #### L AB15, IZJ550, WCX223 ####Director Consumer: SHAHLA WARREN ([phone])[facility] ([facility])[address] [place] [address] Calcium [Mass/Vol] 8.4 mg/dL Normal 8.4-10.2 [facility] Comment on above: Performed By: #### L AB15, WIG558, KIF302 ####Director Consumer: SHAHLA WARREN ([phone])[facility] ([facility])[address] [place] [address] [place] Chloride [Moles/Vol] 115 mmol/L High 98-107 [facility] Comment on above: Performed By: #### L AB15, VSJ434, QDG523 ####Director Consumer: SHAHLA WARREN ([phone])[facility] ([facility])[address] [place] [address] [place] CO2 [Moles/Vol] 31 mmol/L High 22-29 [facility] Comment on above: Performed By: #### L AB15, ORE010, JEX993 ####Director Consumer: SHAHLA WARREN ([phone])[facility] ([facility])[address] [place] [address] Creatinine [Mass/Vol] 1.02 mg/dL Normal 0.72-1.25 [facility] Comment on above: Performed By: #### L AB15, IHA853, MOL305 ####Director Consumer: SHAHLA WARREN ([phone])[facility])[address] [place] [address] GLOMERULAR FILTRATION RATE ML/MIN/1.73 SQ M.PREDICTED >90.0 Normal >60.0 [facility] Comment on above: Result Comment: Calc ulation based on the Chronic Kidney Disease Epidemiology Collaboration (CKD-EPI) equation refit without adjustment for race Performed By: #### Prem WOLFF, LBM926, TEK239 ####Director Consumer: SHAHLA WARREN ([phone])[facility] ([facility])[address] [place] [address] Glucose [Mass/Vol] 101 mg/dL High 74-100 [facility] Comment on above: Performed By: #### Prem AB15, KXF545, LQD433 ####Director Consumer: SHAHLA WARREN ([phone])[facility])[address] [place] [address] Potassium [Moles/Vol] 3.4 mmol/L Low 3.5-5.1 [facility] Comment on above: Result Comment: [facility] potassium values may be up to 0.5 mmol/L lower than serum values. Performed By: #### L AB15, YCL595, OKY018 ####Director Consumer: SHAHLA WARREN ([phone])[facility] ([facility])[address] [place] [address] [place] Sodium [Moles/Vol] 156 mmol/L High 136-145 [facility] Comment on above: Performed By: #### L AB15, FTL526, RTW149 ####Director Consumer: SHAHLA WARREN ([phone])[facility] ([facility])[address] [place] [address] Urea nitrogen [Mass/Vol] 21 mg/dL Normal 8-21 [facility] Comment on above: Performed By: #### L AB15, MXG981, HAV215 ####Director Consumer: SHAHLA WARREN ([phone])[facility] ([facility])[address] [place] [address] BLOOD GAS ARTERIALon 025 AMOUNT OF OXYGEN 60 Normal [facility] Comment on above: Order Comment: While on ventilator Performed By: #### L AB76 ####Director Consumer: SHAHLA WARREN ([phone])[facility] ([facility])[address] [place] [address] Base excess Calc (Bld) [Moles/Vol] 15.3 mmol/L High -3.0-3.0 [facility] Comment on above: Order Comment: While on ventilator Performed By: #### L AB76 ####Director Consumer: SHAHLA WARREN ([phone])[facility] ([facility])[address] [place] [address] CO2 [Moles/Vol] 42.0 mmol/L High 23.0-27.0 [facility] Comment on above: Order Comment: While on ventilator Performed By: #### L AB76 ####Director Consumer: SHAHLA WARREN ([phone])[facility] ([facility])[address] [place] [address] HCO3 (Bld) [Moles/Vol] 40.4 mmol/L High 21.0-25.0 [facility] Comment on above: Order Comment: While on ventilator Performed By: #### L AB76 ####Director Consumer: SHAHLA WARREN ([phone])[facility])[address] [place] [address] Hemoglobin (Bld) [Mass/Vol] 10.0 g/dL Normal Screen only [facility] Comment on above: Order Comment: While on ventilator Performed By: #### L AB76 ####Director Consumer: SHAHLA WARREN ([phone])[facility] ([facility])[address] [place] [address] OXYGEN SATURATION (%) IN ARTERIAL BLOOD 94.6 % Low 95.0-100.0 [facility] Comment on above: Order Comment: While on ventilator Performed By: #### L AB76 ####Director Consumer: SHAHLA WARREN ([phone])[facility] ([facility])[address] [place] [address] PCO2 ARTERIAL 53.1 mm Hg High >35.0-<45.0 [facility] Comment on above: Order Comment: While on ventilator Performed By: #### L AB76 ####Director Consumer: SHAHLA WARREN ([phone])[facility] [place] [address] PH ARTERIAL 7.499 High 7.350-7.450 [facility] Comment on above: Order Comment: While on ventilator Performed By: #### L AB76 ####Director Consumer: SHAHLA WARREN ([phone])[facility] [place] [address] PO2 ARTERIAL 74.3 mm Hg Low 80.0-100.0 [facility] Comment on above: Order Comment: While on ventilator Performed By: #### L AB76 ####Director Consumer: SHAHLA WARREN ([phone])[facility])[address] [place] [address] SOURCE OF OXYGEN Ventilator Normal [facility] Comment on above: Order Comment: While on ventilator Performed By: #### L AB76 ####Director Consumer: SHAHLA WARREN ([phone])[facility] [place] [address] AMOUNT OF OXYGEN 50 Normal [facility] Comment on above: Order Comment: While on ventilator Performed By: #### L AB76 ####Director Consumer: SHAHLA WARREN ([phone])[facility] ([facility])[address] [place] [address] Base excess Calc (Bld) [Moles/Vol] 13.6 mmol/L High -3.0-3.0 [facility] Comment on above: Order Comment: While on ventilator Performed By: #### L AB76 ####Director Consumer: SHAHLA WARREN ([phone])[facility] ([facility])[address] [place] [address] CO2 [Moles/Vol] 39.9 mmol/L High 23.0-27.0 [facility] Comment on above: Order Comment: While on ventilator Performed By: #### L AB76 ####Director Consumer: SHAHLA WARREN ([phone])[facility])[address] [place] [address] HCO3 (Bld) [Moles/Vol] 38.4 mmol/L High 21.0-25.0 [facility] Comment on above: Order Comment: While on ventilator Performed By: #### L AB76 ####Director Consumer: SHAHLA WARREN ([phone])[facility])[address] [place] [address] Hemoglobin (Bld) [Mass/Vol] 10.0 g/dL Normal Screen only [facility] Comment on above: Order Comment: While on ventilator Performed By: #### L AB76 ####Director Consumer: SHAHLA WARREN ([phone])[facility] ([facility])[address] [place] [address] OXYGEN SATURATION (%) IN ARTERIAL BLOOD 87.9 % Low 95.0-100.0 [facility] Comment on above: Order Comment: While on ventilator Performed By: #### L AB76 ####Director Consumer: SHAHLA WARREN ([phone])[facility] [place] [address] PCO2 ARTERIAL 50.0 mm Hg High >35.0-<45.0 [facility] Comment on above: Order Comment: While on ventilator Performed By: #### L AB76 ####Director Consumer: SHAHLA WARREN ([phone])[facility] [place] [address] PH ARTERIAL 7.503 High 7.350-7.450 [facility] Comment on above: Order Comment: While on ventilator Performed By: #### L AB76 ####Director Consumer: SHAHLA WARREN ([phone])[facility] [place] [address] PO2 ARTERIAL 53.3 mm Hg Low 80.0-100.0 [facility] Comment on above: Order Comment: While on ventilator Performed By: #### L AB76 ####Director Consumer: SHAHLA WARREN ([phone])[facility] [place] [address] SOURCE OF OXYGEN Ventilator Normal [facility] Comment on above: Order Comment: While on ventilator Performed By: #### L AB76 ####Director Consumer: SHAHLA WARREN ([phone])[facility])[address] [place] [address] AMOUNT OF OXYGEN 80 Normal [facility] Comment on above: Order Comment: While on ventilator Performed By: #### L AB76 ####Director Consumer: SHAHLA WARREN ([phone])[facility] ([facility])[address] [place] [address] Base excess Calc (Bld) [Moles/Vol] 12.6 mmol/L High -3.0-3.0 [facility] Comment on above: Order Comment: While on ventilator Performed By: #### L AB76 ####Director Consumer: SHAHLA WARREN ([phone])[facility])[address] [place] [address] [place] CO2 [Moles/Vol] 38.9 mmol/L High 23.0-27.0 [facility] Comment on above: Order Comment: While on ventilator Performed By: #### L AB76 ####Director Consumer: SHAHLA WARREN ([phone])[facility] [place] [address] [place] HCO3 (Bld) [Moles/Vol] 37.3 mmol/L High 21.0-25.0 [facility] Comment on above: Order Comment: While on ventilator Performed By: #### L AB76 ####Director Consumer: SHAHLA WARREN ([phone])[facility] ([facility])[address] [place] [address] Hemoglobin (Bld) [Mass/Vol] 9.3 g/dL Normal Screen only [facility] Comment on above: Order Comment: While on ventilator Performed By: #### L AB76 ####Director Consumer: SHAHLA WARREN ([phone])[facility] ([facility])[address] [place] [address] OXYGEN SATURATION (%) IN ARTERIAL BLOOD 98.2 % Normal 95.0-100.0 [facility] Comment on above: Order Comment: While on ventilator Performed By: #### L AB76 ####Director Consumer: SHAHLA WARREN ([phone])[facility])[address] [place] [address] PCO2 ARTERIAL 50.0 mm Hg High >35.0-<45.0 [facility] Comment on above: Order Comment: While on ventilator Performed By: #### L AB76 ####Director Consumer: SHAHLA WARREN ([phone])[facility] ([facility])[address] [place] [address] PH ARTERIAL 7.491 High 7.350-7.450 [facility] Comment on above: Order Comment: While on ventilator Performed By: #### L AB76 ####Director Consumer: SHAHLA WARREN ([phone])[facility] ([facility])[address] [place] [address] PO2 ARTERIAL 155.9 mm Hg High 80.0-100.0 [facility] Comment on above: Order Comment: While on ventilator Performed By: #### L AB76 ####Director Consumer: SHAHLA WARREN ([phone])[facility] ([facility])[address] [place] [address] SOURCE OF OXYGEN Ventilator Normal [facility] Comment on above: Order Comment: While on ventilator Performed By: #### L AB76 ####Director Consumer: SHAHLA WARREN ([phone])[facility] [place] [address] AMOUNT OF OXYGEN 80 Normal [facility] Comment on above: Order Comment: While on ventilator Performed By: #### L AB76 ####Director Consumer: SHAHLA WARREN ([phone])[facility] [place] [address] Base excess Calc (Bld) [Moles/Vol] 11.3 mmol/L High -3.0-3.0 [facility] Comment on above: Order Comment: While on ventilator Performed By: #### L AB76 ####Director Consumer: SHAHLA WARREN ([phone])[facility])[address] [place] [address] CO2 [Moles/Vol] 38.7 mmol/L High 23.0-27.0 [facility] Comment on above: Order Comment: While on ventilator Performed By: #### L AB76 ####Director Consumer: SHAHLA WARREN ([phone])[facility])[address] [place] [address] HCO3 (Bld) [Moles/Vol] 37.0 mmol/L High 21.0-25.0 [facility] Comment on above: Order Comment: While on ventilator Performed By: #### L AB76 ####Director Consumer: SHAHLA WARREN ([phone])[facility])[address] [place] [address] Hemoglobin (Bld) [Mass/Vol] 9.4 g/dL Normal Screen only [facility] Comment on above: Order Comment: While on ventilator Performed By: #### L AB76 ####Director Consumer: SHAHLA WARREN ([phone])[facility])[address] [place] [address] OXYGEN SATURATION (%) IN ARTERIAL BLOOD 94.8 % Low 95.0-100.0 [facility] Comment on above: Order Comment: While on ventilator Performed By: #### L AB76 ####Director Consumer: SHAHLA WARREN ([phone])[facility] [place] [address] PCO2 ARTERIAL 56.0 mm Hg High >35.0-<45.0 [facility] Comment on above: Order Comment: While on ventilator Performed By: #### L AB76 ####Director Consumer: SHAHLA WARREN ([phone])[facility])[address] [place] [address] PH ARTERIAL 7.438 Normal 7.350-7.450 [facility] Comment on above: Order Comment: While on ventilator Performed By: #### L AB76 ####Director Consumer: SHAHLA WARREN ([phone])[facility])[address] [place] [address] PO2 ARTERIAL 82.8 mm Hg Normal 80.0-100.0 [facility] Comment on above: Order Comment: While on ventilator Performed By: #### L AB76 ####Director Consumer: SHAHLA WARREN ([phone])[facility])[address] [place] [address] SOURCE OF OXYGEN Ventilator Normal [facility] Comment on above: Order Comment: While on ventilator Performed By: #### L AB76 ####Director Consumer: SHAHLA WARREN ([phone])[facility])[address] [place] [address] AMOUNT OF OXYGEN 100 Normal [facility] Comment on above: Order Comment: While on ventilator Performed By: #### L AB76 ####Director Consumer: SHAHLA WARREN ([phone])[facility] ([facility])[address] [place] [address] Base excess Calc (Bld) [Moles/Vol] 10.6 mmol/L High -3.0-3.0 [facility] Comment on above: Order Comment: While on ventilator Performed By: #### L AB76 ####Director Consumer: SHAHLA WARREN ([phone])[facility] ([facility])[address] [place] [address] [place] CO2 [Moles/Vol] 37.8 mmol/L High 23.0-27.0 [facility] Comment on above: Order Comment: While on ventilator Performed By: #### L AB76 ####Director Consumer: SHAHLA WARREN ([phone])[facility])[address] [place] [address] HCO3 (Bld) [Moles/Vol] 36.1 mmol/L High 21.0-25.0 [facility] Comment on above: Order Comment: While on ventilator Performed By: #### L AB76 ####Director Consumer: SHAHLA WARREN ([phone])[facility] ([facility])[address] [place] [address] Hemoglobin (Bld) [Mass/Vol] 9.4 g/dL Normal Screen only [facility] Comment on above: Order Comment: While on ventilator Performed By: #### L AB76 ####Director Consumer: SHAHLA WARREN ([phone])[facility] ([facility])[address] [place] [address] OXYGEN SATURATION (%) IN ARTERIAL BLOOD 96.2 % Normal 95.0-100.0 [facility] Comment on above: Order Comment: While on ventilator Performed By: #### L AB76 ####Director Consumer: SHAHLA WARREN ([phone])[facility] ([facility])[address] [place] [address] PCO2 ARTERIAL 54.0 mm Hg High >35.0-<45.0 [facility] Comment on above: Order Comment: While on ventilator Performed By: #### L AB76 ####Director Consumer: SHAHLA WARREN ([phone])[facility] ([facility])[address] [place] [address] PH ARTERIAL 7.443 Normal 7.350-7.450 [facility] Comment on above: Order Comment: While on ventilator Performed By: #### L AB76 ####Director Consumer: SHAHLA WARREN ([phone])[facility] ([facility])[address] [place] [address] PO2 ARTERIAL 88.7 mm Hg Normal 80.0-100.0 [facility] Comment on above: Order Comment: While on ventilator Performed By: #### L AB76 ####Director Consumer: SHAHLA WARREN ([phone])[facility])[address] [place] [address] SOURCE OF OXYGEN Ventilator Normal [facility] Comment on above: Order Comment: While on ventilator Performed By: #### L AB76 ####Director Consumer: SHAHLA WARREN ([phone])[facility])[address] [place] [address] AMOUNT OF OXYGEN 100 Normal [facility] Comment on above: Order Comment: While on ventilator Performed By: #### L AB76 ####Director Consumer: SHAHLA WARREN ([phone])[facility] ([facility])[address] [place] [address] Base excess Calc (Bld) [Moles/Vol] 8.5 mmol/L High -3.0-3.0 [facility] Comment on above: Order Comment: While on ventilator Performed By: #### L AB76 ####Director Consumer: SHAHLA WARREN ([phone])[facility] ([facility])[address] [place] [address] CO2 [Moles/Vol] 36.3 mmol/L High 23.0-27.0 [facility] Comment on above: Order Comment: While on ventilator Performed By: #### L AB76 ####Director Consumer: SHAHLA WARREN ([phone])[facility])[address] [place] [address] HCO3 (Bld) [Moles/Vol] 34.6 mmol/L High 21.0-25.0 [facility] Comment on above: Order Comment: While on ventilator Performed By: #### L [id number] ####Director Consumer: SHAHLA WARREN ([phone])[facility] ([facility])[address] [place] [address] Hemoglobin (Bld) [Mass/Vol] 9.1 g/dL Normal Screen only [facility] Comment on above: Order Comment: While on ventilator Performed By: #### L AB76 ####Director Consumer: SHAHLA WARREN ([phone])[facility] ([facility])[address] [place] [address] OXYGEN SATURATION (%) IN ARTERIAL BLOOD 95.4 % Normal 95.0-100.0 [facility] Comment on above: Order Comment: While on ventilator Performed By: #### L AB76 ####Director Consumer: SHAHLA WARREN ([phone])[facility] ([facility])[address] [place] [address] PCO2 ARTERIAL 56.8 mm Hg High >35.0-<45.0 [facility] Comment on above: Order Comment: While on ventilator Performed By: #### L [id number] ####Director Consumer: SHAHLA WARREN ([phone])[facility] ([facility])[address] [place] [address] PH ARTERIAL 7.402 Normal 7.350-7.450 [facility] Comment on above: Order Comment: While on ventilator Performed By: #### L [id number] ####Director Consumer: SHAHLA WARREN ([phone])[facility] ([facility])[address] [place] [address] PO2 ARTERIAL 85.2 mm Hg Normal 80.0-100.0 [facility] Comment on above: Order Comment: While on ventilator Performed By: #### L AB76 ####Director Consumer: SHAHLA WARREN ([phone])[facility] ([facility])[address] [place] [address] SOURCE OF OXYGEN Ventilator Normal [facility] Comment on above: Order Comment: While on ventilator Performed By: #### L AB76 ####Director Consumer: SHAHLA WARREN ([phone])[facility] ([facility])[address] [place] [address] CALCIUM, IONIZEDon 5 CALCIUM IONIZED 3.80 mg/dL Low 4.30-5.20 [facility] Comment on above: Performed By: #### L AB54 ####Director Consumer: SHAHLA WARREN ([phone])[facility])[address] [place] [address] PH, IONIZED CALCIUM 7.49 High 7.31-7.46 [facility] Comment on above: Performed By: #### L AB54 ####Director Consumer: SHAHLA WARREN ([phone])[facility])[address] [place] [address] CBC WITH AUTO DIFFERENTIALon 12-29-2024 Erythrocyte distribution width (RBC) [Ratio] 14.2 % Normal 11.5-15.0 [facility] Comment on above: Performed By: #### L [id number], [id number] ####Director Consumer: SHAHLA WARREN ([phone])[facility])[address] [place] [address] Hematocrit (Bld) [Volume fraction] 25.7 % Low 40.0-52.0 [facility] Comment on above: Performed By: #### L [id number], [id number] ####Director Consumer: SHAHLA WARREN ([phone])[address] Hemoglobin (Bld) [Mass/Vol] 8.8 g/dL Low 13.0-18.0 [facility] Comment on above: Performed By: #### L [id number], [id number] ####Director Consumer: SHAHLA WARREN ([phone])[facility])[address] [place] [address] MCH (RBC) [Entitic mass] 30.6 pg Normal 26.0-34.0 [facility] Comment on above: Performed By: #### L [id number], [id number] ####Director Consumer: SHAHLA WARREN ([phone])[address] MCHC 34.2 % Normal 30.5-36.0 [facility] Comment on above: Performed By: #### L [id number], [id number] ####Director Consumer: SHAHLA WARREN ([phone])[facility] ([facility])[address] [place] [address] MCV (RBC) [Entitic vol] 89.2 fL Normal 77.0-99.0 [facility] Comment on above: Performed By: #### L [id number], [id number] ####Director Consumer: SHAHLA WARREN ([phone])[facility])[address] [place] [address] Platelet mean volume (Bld) [Entitic vol] 9.9 fL Normal 9.0-12.7 [facility] Comment on above: Performed By: #### L [id number], NJQ0497 ####Director Consumer: SHAHLA WARREN ([phone])[facility])[address] [place] [address] Platelets (Bld) [#/Vol] 142 10*3/uL Normal 140-440 [facility] Comment on above: Performed By: #### L [id number], [id number] ####Director Consumer: SHAHLA WARREN ([phone])[facility])[address] [place] [address] RBC (Bld) [#/Vol] 2.88 10*6/uL Low 4.40-5.90 [facility] Comment on above: Performed By: #### L [id number], [id number] ####Director Consumer: SHAHLA WARREN ([phone])[facility])[address] [place] [address] WBC (Bld) [#/Vol] 13.9 10*3/uL High 3.6-10.7 [facility] Comment on above: Performed By: #### L [id number], [id number] ####Director Consumer: SHAHLA WARREN ([phone])[facility])[address] [place] [address] COMPREHENSIVE METABOLIC PANE Clifford 12-29-2024 Albumin [Mass/Vol] 2.5 g/dL Low 3.5-5.0 [facility] Comment on above: Performed By: #### L AB17, [id number], GCC346 ####Director Consumer: SHAHLA WARREN ([phone])[facility] ([facility])[address] [place] [address] ALP [Catalytic activity/Vol] 59 U/L Normal 40-150 [facility] Comment on above: Performed By: #### L AB17, HMC455, DFM926 ####Director Consumer: SHAHLA WARREN ([phone])[facility] ([facility])[address] [place] [address] ALT [Catalytic activity/Vol] 145 U/L High <40 [facility] Comment on above: Performed By: #### L AB17, EYZ871, GFG349 ####Director Consumer: SHAHLA WARREN ([phone])[facility] ([facility])[address] [place] [address] Anion gap [Moles/Vol] 9 mmol/L Normal 3-13 [facility] Comment on above: Performed By: #### L AB17, MHP625, MYV409 ####Director Consumer: SHAHLA WARREN ([phone])[facility] ([facility])[address] [place] [address] AST [Catalytic activity/Vol] 193 U/L High <34 [facility] Comment on above: Performed By: #### L AB17, LJA722, MFY800 ####Director Consumer: SHAHLA WARREN ([phone])[facility] ([facility])[address] [place] [address] Bilirubin [Mass/Vol] 0.4 mg/dL Normal <1.2 [facility] Comment on above: Performed By: #### L AB17, QEZ222, EIT245 ####Director Consumer: SHAHLA WARREN ([phone])[facility])[address] [place] [address] Calcium [Mass/Vol] 8.4 mg/dL Normal 8.4-10.2 [facility] Comment on above: Performed By: #### L AB17, ILG255, XZX770 ####Director Consumer: SHAHLA WARREN ([phone])[facility] ([facility])[address] [place] [address] [place] Chloride [Moles/Vol] 113 mmol/L High 98-107 [facility] Comment on above: Performed By: #### L AB17, OJW946, NEB919 ####Director Consumer: SHAHLA WARREN ([phone])[facility])[address] [place] [address] [place] CO2 [Moles/Vol] 33 mmol/L High 22-29 [facility] Comment on above: Performed By: #### L AB17, YGQ912, CUR436 ####Director Consumer: SHAHLA WARREN ([phone])[facility] ([facility])[address] [place] [address] Creatinine [Mass/Vol] 1.16 mg/dL Normal 0.72-1.25 [facility] Comment on above: Performed By: #### L AB17, NWK365, PXL475 ####Director Consumer: SHAHLA WARREN ([phone])[facility] ([facility])[address] [place] [address] [place] GLOMERULAR FILTRATION RATE ML/MIN/1.73 SQ M.PREDICTED 84.2 mL/min/1.73m*2 Normal >60.0 [facility] Comment on above: Result Comment: Calc ulation based on the Chronic Kidney Disease Epidemiology Collaboration (CKD-EPI) equation refit without adjustment for race Performed By: #### L AB17, TXL656, QXF619 ####Director Consumer: SHAHLA WARREN ([phone])[facility] ([facility])[address] [place] [address] [place] Glucose [Mass/Vol] 97 mg/dL Normal 74-100 [facility] Comment on above: Performed By: #### L AB17, TIJ057, YNI790 ####Director Consumer: SHAHLA WARREN ([phone])[facility])[address] [place] [address] [place] Potassium [Moles/Vol] 4.1 mmol/L Normal 3.5-5.1 [facility] Comment on above: Result Comment: Plas ma potassium values may be up to 0.5 mmol/L lower than serum values. Performed By: #### L AB17, URJ158, SHX279 ####Director Consumer: SHAHLA WARREN ([phone])[facility])[address] [place] [address] Protein [Mass/Vol] 6.1 g/dL Low 6.4-8.3 [facility] Comment on above: Performed By: #### L AB17, VCH275, FYE406 ####Director Consumer: SHAHLA WARREN ([phone])[facility] ([facility])[address] [place] [address] Sodium [Moles/Vol] 155 mmol/L High 136-145 [facility] Comment on above: Performed By: #### L AB17, CPZ438, IVA234 ####Director Consumer: SHAHLA WARREN ([phone])[facility])[address] [place] [address] Urea nitrogen [Mass/Vol] 20 mg/dL Normal 8- [facility] Comment on above: Performed By: #### L AB17, LFT131, SKL602 ####Director Consumer: SHAHLA WARREN ([phone])[facility])[address] [place] [address] ECG 12-LEADon 12-29-2024 ECG 12-LEAD IMPRESSION: Sinus bradycardia Electronically Signed On 12-29-2024 13:09:03 [facility] 12-LEAD IMPRESSION: Sinus bradycardia ST elev, probable normal early repol pattern Electronically Signed On 12-29-2024 12:50:09 EDT by [facility] LACTATE DEHYDROGENASEon 05 LDH [Catalytic activity/Vol] 591 U/L High 125-220 [facility] Comment on above: Performed By: #### L AB96, LAB15, KRD397, EGS973 ####Director Consumer: SHAHLA WARREN ([phone])[facility])[address] [place] [address] MAGNESIUMon 12-29-2024 Magnesium [Mass/Vol] 2.4 mg/dL Normal 1.6-2.6 [facility] Comment on above: Result Comment: ORDE R COMMENTS:Higher values can be expected in females during menses. Performed By: #### L AB15, JYG251, ZRS939 ####Director Consumer: SHAHLA WARREN ([phone])[facility])[address] [place] [address] Magnesium [Mass/Vol] 2.4 mg/dL Normal 1.6-2.6 [facility] Comment on above: Result Comment: ORDE R COMMENTS:Higher values can be expected in females during menses. Performed By: #### L AB15, HKG736, YNO508 ####Director Consumer: SHAHLA WARREN ([phone])[address] Magnesium [Mass/Vol] 2.3 mg/dL Normal 1.6-2.6 [facility] Comment on above: Result Comment: ORDE R COMMENTS:Higher values can be expected in females during menses. Performed By: #### L AB15, QGL909, UCN690 ####Director Consumer: SHAHLA WARREN ([phone])[address] Magnesium [Mass/Vol] 2.3 mg/dL Normal 1.6-2.6 [facility] Comment on above: Result Comment: ORDE R COMMENTS:Higher values can be expected in females during menses. Performed By: #### L AB96, LAB15, DRB885, CQN800 ####Director Consumer: SHAHLA WARREN ([phone])[address] Magnesium [Mass/Vol] 2.3 mg/dL Normal 1.6-2.6 [facility] Comment on above: Result Comment: ORDE R COMMENTS:Higher values can be expected in females during menses. Performed By: #### L AB17, UQA317, WIZ334 ####Director Consumer: SHAHLA WARREN ([phone])[facility])[address] [place] [address] Magnesium [Mass/Vol] 2.4 mg/dL Normal 1.6-2.6 [facility] Comment on above: Result Comment: DARIO R COMMENTS:Higher values can be expected in females during menses. Performed By: #### L AB15, ZBY808, TMC587 ####Director Consumer: SHAHLA WARREN ([phone])[facility] ([facility])[address] [place] [address] MANUAL DIFFERENTIALon 2024 BAND NEUTROPHILS TOTAL PER COUNTED LEUKOCYTES BY MANUAL COUNT 5 Normal [facility] Comment on above: Performed By: #### L [id number], FYK3753 ####Director Consumer: SHAHLA WARREN ([phone])[facility] ([facility])[address] [place] [address] BANDS 0.7 10*3/uL High <=0.0 [facility] Comment on above: Performed By: #### L [id number], SOE7251 ####Director Consumer: SHAHLA WARREN ([phone])[facility] ([facility])[address] [place] [address] CELLS COUNTED TOTAL (#) IN BLOOD 100 Normal [facility] Comment on above: Performed By: #### L IV2750, DRS4888 ####Director Consumer: SHAHLA WARREN ([phone])[facility] ([facility])[address] [place] [address] DIFFERENTIAL METHOD Manual differential performed Normal [facility] Comment on above: Performed By: #### L [id number], TBA9956 ####Director Consumer: SHAHLA WARREN ([phone])[facility])[address] [place] [address] LEUKOCYTE MORPHOLOGY FINDING IN BLOOD Normal Normal [facility] Comment on above: Performed By: #### L HU5596, [id number] ####Director Consumer: SHAHLA WARREN ([phone])[facility] ([facility])[address] [place] [address] LEUKOCYTES (10*3/UL) NUCLEATED ERYTHROCYTE ADJUST 13.9 10*3/uL High 3.6-10.7 [facility] Comment on above: Performed By: #### L [id number], [id number] ####Director Consumer: SHAHLA WARREN ([phone])[facility] ([facility])[address] [place] [address] [place] LYMPHOCYTES (10*3/UL) IN BLOOD BY MANUAL COUNT 1.1 10*3/uL Normal 1.0-4.3 [facility] Comment on above: Performed By: #### L TV2556, SJO8962 ####Director Consumer: SHAHLA WARREN ([phone])[facility] ([facility])[address] [place] [address] [place] LYMPHOCYTES TOTAL PER COUNTED LEUKOCYTES BY MANUAL COUNT 8 Normal [facility] Comment on above: Performed By: #### Prem [id number], ZBV0830 ####Director Consumer: SHAHLA WARREN ([phone])[facility] ([facility])[address] [place] [address] [place] LYMPHOCYTES/100 LEUKOCYTES IN BLOOD BY MANUAL COUNT 8 % Low 15-45 [facility] Comment on above: Performed By: #### Prem QA8956, ISX2825 ####Director Consumer: SHAHLA WARREN ([phone])[facility])[address] [place] [address] [place] METAMYELOCYTES (10*3/UL) IN BLOOD BY MANUAL COUNT 0.1 10*3/uL High <=0.0 [facility] Comment on above: Performed By: #### L [id number], [id number] ####Director Consumer: SHAHLA WARREN ([phone])[facility] ([facility])[address] [place] [address] [place] METAMYELOCYTES TOTAL PER COUNTED LEUKOCYTES BY MANUAL COUNT 1 Normal [facility] Comment on above: Performed By: #### L [id number], [id number] ####Director Consumer: SHAHLA WARREN ([phone])[facility] ([facility])[address] [place] [address] [place] METAMYELOCYTES/100 LEUKOCYTES IN BLOOD BY MANUAL COUNT 1 % High <=0 [facility] Comment on above: Performed By: #### L [id number], YQT0172 ####Director Consumer: SHAHLA WARREN ([phone])[facility] ([facility])[address] [place] [address] [place] MONOCYTES (10*3/UL) IN BLOOD BY MANUAL COUNT 0.6 10*3/uL Normal 0.0-0.9 [facility] Comment on above: Performed By: #### L [id number], OYM5444 ####Director Consumer: SHAHLA WARREN ([phone])[facility])[address] [place] [address] [place] MONOCYTES TOTAL PER COUNTED LEUKOCYTES BY MANUAL COUNT 4 Normal [facility] Comment on above: Performed By: #### L [id number], [id number] ####Director Consumer: SHAHLA WARREN ([phone])[facility] ([facility])[address] [place] [address] [place] MONOCYTES/100 LEUKOCYTES IN BLOOD BY MANUAL COUNT 4 % Low 5-13 [facility] Comment on above: Performed By: #### L [id number], [id number] ####Director Consumer: SHAHLA WARREN ([phone])[facility] ([facility])[address] [place] [address] [place] MYELOCYTES (10*3/UL) IN BLOOD BY MANUAL COUNT 0.1 10*3/uL High <=0.0 [facility] Comment on above: Performed By: #### L [id number], OWE1758 ####Director Consumer: SHAHLA WARREN ([phone])[facility] ([facility])[address] [place] [address] [place] MYELOCYTES COUNTED BY MANUAL COUNT 1 Normal [facility] Comment on above: Performed By: #### L [id number], KCE8232 ####Director Consumer: SHAHLA WARREN ([phone])[facility] ([facility])[address] [place] [address] [place] MYELOCYTES/100 LEUKOCYTES IN BLOOD BY MANUAL COUNT 1 % High <=0 [facility] Comment on above: Performed By: #### L [id number], [id number] ####Director Consumer: SHAHLA WRAREN ([phone])[facility])[address] [place] [address] [place] NEUTROPHILS (SEGS+BANDS) (10*3/UL) BY MANUAL COUNT 12.0 10*3/uL High 1.8-7.0 [facility] Comment on above: Performed By: #### L [id number], [id number] ####Director Consumer: SHAHLA WARREN ([phone])[facility])[address] [place] [address] [place] NEUTROPHILS BAND FORM/100 LEUKOCYTES IN BLOOD BY MANUAL COUNT 5 % High <=0 [facility] Comment on above: Performed By: #### L [id number], [id number] ####Director Consumer: SHAHLA WARREN ([phone])[facility] ([facility])[address] [place] [address] [place] NEUTROPHILS TOTAL PER COUNTED LEUKOCYTES BY MANUAL COUNT 81 Normal [facility] Comment on above: Performed By: #### L [id number], [id number] ####Director Consumer: SHAHLA WARREN ([phone])[facility] ([facility])[address] [place] [address] [place] NUCLEATED ERYTHROCYTES/100 LEUKOCYTES IN BLOOD BY MANUAL COUNT 3 % Normal [facility] Comment on above: Performed By: #### L [id number], OGU0436 ####Director Consumer: SHAHLA WARREN ([phone])[facility] ([facility])[address] [place] [address] [place] PLATELET MORPHOLOGY IN BLOOD Normal Normal [facility] Comment on above: Performed By: #### L GQ1214, [id number] ####Director Consumer: SHAHLA WARREN ([phone])[facility] ([facility])[address] [place] [address] [place] ROULEAUX PRESENCE IN BLOOD BY LIGHT MICROSCOPY Slight Abnormal (none) [facility] Comment on above: Performed By: #### L [id number], [id number] ####Director Consumer: SHAHLA WARREN ([phone])[facility] ([facility])[address] [place] [address] SEGEMENTED NEUTROPHILS/100 LEUKOCYTES BY MANUAL COUNT 81 % Normal 38-82 [facility] Comment on above: Performed By: #### L [id number], ZCY4514 ####Director Consumer: SHAHLA WARREN ([phone])[facility])[address] [place] [address] SEGMENTED NEUTROPHILS (10*3/UL)IN BLOOD BY MANUAL COUNT 12.0 10*3/uL High 1.8-7.5 [facility] Comment on above: Performed By: #### L [id number], [id number] ####Director Consumer: SHAHLA WARREN ([phone])[facility] ([facility])[address] [place] [address] Nursing Noteon 12-29-2024 Nursing Note Normal [facility] PHOSPHORUSon 12-29-2024 Phosphate [Mass/Vol] 2.8 mg/dL Normal 2.3-4.7 [facility] Comment on above: Performed By: #### L AB15, WHC857, TRU913 ####Director Consumer: SHAHLA WARREN ([phone])[facility] ([facility])[address] [place] [address] Phosphate [Mass/Vol] 2.8 mg/dL Normal 2.3-4.7 [facility] Comment on above: Performed By: #### L AB15, IOZ590, MPI551 ####Director Consumer: SHAHLA WARREN ([phone])[facility] ([facility])[address] [place] [address] Phosphate [Mass/Vol] 3.6 mg/dL Normal 2.3-4.7 [facility] Comment on above: Performed By: #### L AB15, NFK168, YEF023 ####Director Consumer: SHAHLA WARREN ([phone])[facility])[address] [place] [address] Phosphate [Mass/Vol] 3.3 mg/dL Normal 2.3-4.7 [facility] Comment on above: Performed By: #### L AB96, LAB15, CZW809, HJY630 ####Director Consumer: SHAHLA WARREN ([phone])[facility] ([facility])[address] [place] [address] Phosphate [Mass/Vol] 3.8 mg/dL Normal 2.3-4.7 [facility] Comment on above: Performed By: #### L AB17, PXY817, PRH681 ####Director Consumer: SHAHLA WARREN ([phone])[facility] [place] [address] Phosphate [Mass/Vol] 3.0 mg/dL Normal 2.3-4.7 [facility] Comment on above: Performed By: #### L AB15, FIO568, GOE831 ####Director Consumer: SHAHLA WARREN ([phone])[facility] ([facility])[address] [place] [address] Progress Noteon 12-29-2024 Progress Note Normal [facility] Progress Note Normal [facility] Progress Note Normal [facility] Progress Note OCCUPATIONAL THERAPY [facility] Name/MRN: Chelsea Cole ([id number]) Date: 12/29/2024 Pt currently on vent and sedated and unable to follow commands. Will hold and follow; re-attempt as appropriate. Mamie Ocampo OTR/L Normal [facility] Progress Note PHYSICAL THERAPY [facility] Name/MRN: Chelsea Cole ([id number]) Date: 12/29/2024 Screen Pt on vent and sedated. Not following commands. Will hold PT, to follow with screens. Luis Sucaldito, PT Normal [facility] Progress Note Normal [facility] XR CHEST 1 VIEWon 12-29-2024 XR CHEST 1 VIEW Normal [facility] [id number] 12-28-2024 [id number] Normal [facility] BASIC METABOLIC PANELon 05-0 Anion gap [Moles/Vol] 7 mmol/L Normal 3-13 [facility] Comment on above: Performed By: #### L [id number], [id number], [id number] ####Director Consumer: SHAHLA WARREN ([phone])[facility] [place] [address] [place] Calcium [Mass/Vol] 8.7 mg/dL Normal 8.4-10.2 [facility] Comment on above: Performed By: #### L [id number], [id number], LAB15 ####Director Consumer: SHAHLA WARREN ([phone])[facility])[address] [place] [address] [place] Chloride [Moles/Vol] 115 mmol/L High 98-107 [facility] Comment on above: Performed By: #### L [id number], [id number], LAB15 ####Director Consumer: SHAHLA WARREN ([phone])[facility])[address] [place] [address] [place] CO2 [Moles/Vol] 32 mmol/L High 22-29 [facility] Comment on above: Performed By: #### Prem AB103, [id number], LAB15 ####Director Consumer: SHAHLA WARREN ([phone])[facility])[address] [place] [address] Creatinine [Mass/Vol] 1.07 mg/dL Normal 0.72-1.25 [facility] Comment on above: Performed By: #### L AB103, [id number], LAB15 ####Director Consumer: SHAHLA WARREN ([phone])[facility] ([facility])[address] [place] [address] GLOMERULAR FILTRATION RATE ML/MIN/1.73 SQ M.PREDICTED >90.0 Normal >60.0 [facility] Comment on above: Result Comment: Calc ulation based on the Chronic Kidney Disease Epidemiology Collaboration (CKD-EPI) equation refit without adjustment for race Performed By: #### L AB103, [id number], LAB15 ####Director Consumer: SHAHLA WARREN ([phone])[facility])[address] [place] [address] [place] Glucose [Mass/Vol] 115 mg/dL High 74-100 [facility] Comment on above: Performed By: #### L AB103, [id number], LAB15 ####Director Consumer: SHAHLA WARREN ([phone])[facility])[address] [place] [address] [place] Potassium [Moles/Vol] 2.5 mmol/L Critically low 3.5-5.1 [facility] Comment on above: Result Comment: [facility] potassium values may be up to 0.5 mmol/L lower than serum values. Performed By: #### L AB103, [id number], LAB15 ####Director Consumer: SHAHLA WARREN ([phone])[facility] [place] [address] Sodium [Moles/Vol] 154 mmol/L High 136-145 [facility] Comment on above: Performed By: #### L AB103, [id number], LAB15 ####Director Consumer: SHAHLA WARREN ([phone])[facility])[address] [place] [address] Urea nitrogen [Mass/Vol] 22 mg/dL High 8-21 [facility] Comment on above: Performed By: #### L AB103, [id number], LAB15 ####Director Consumer: SHAHLA WARREN ([phone])[facility] [place] [address] Anion gap [Moles/Vol] 7 mmol/L Normal 3-13 [facility] Comment on above: Performed By: #### L AB103, LAB15, [id number] ####Director Consumer: SHAHLA WARREN ([phone])[facility] [place] [address] Calcium [Mass/Vol] 8.8 mg/dL Normal 8.4-10.2 [facility] Comment on above: Performed By: #### L AB103, LAB15, [id number] ####Director Consumer: SHAHLA WARREN ([phone])[facility] ([facility])[address] [place] [address] [place] Chloride [Moles/Vol] 115 mmol/L High 98-107 [facility] Comment on above: Performed By: #### L AB103, LAB15, [id number] ####Director Consumer: SHAHLA WARREN ([phone])[facility] ([facility])[address] [place] [address] [place] CO2 [Moles/Vol] 31 mmol/L High 22-29 [facility] Comment on above: Performed By: #### L AB103, LAB15, [id number] ####Director Consumer: SHAHLA WARREN ([phone])[facility])[address] [place] [address] Creatinine [Mass/Vol] 1.11 mg/dL Normal 0.72-1.25 [facility] Comment on above: Performed By: #### Prem AB103, LAB15, [id number] ####Director Consumer: SHAHLA WARREN ([phone])[facility])[address] [place] [address] GLOMERULAR FILTRATION RATE ML/MIN/1.73 SQ M.PREDICTED 88.8 mL/min/1.73m*2 Normal >60.0 [facility] Comment on above: Result Comment: Calc ulation based on the Chronic Kidney Disease Epidemiology Collaboration (CKD-EPI) equation refit without adjustment for race Performed By: #### Prem AB103, LAB15, [id number] ####Director Consumer: SHAHLA WARREN ([phone])[facility])[address] [place] [address] Glucose [Mass/Vol] 135 mg/dL High 74-100 [facility] Comment on above: Performed By: #### L AB103, LAB15, [id number] ####Director Consumer: SHAHLA WARREN ([phone])[facility] ([facility])[address] [place] [address] [place] Potassium [Moles/Vol] 2.3 mmol/L Critically low 3.5-5.1 [facility] Comment on above: Result Comment: [facility] potassium values may be up to 0.5 mmol/L lower than serum values. Performed By: #### L AB103, LAB15, [id number] ####Director Consumer: SHAHLA WARREN ([phone])[facility] [place] [address] Sodium [Moles/Vol] 153 mmol/L High 136-145 [facility] Comment on above: Performed By: #### L AB103, LAB15, [id number] ####Director Consumer: SHAHLA WARREN ([phone])[facility] ([facility])[address] [place] [address] Urea nitrogen [Mass/Vol] 22 mg/dL High 8-21 [facility] Comment on above: Performed By: #### L AB103, LAB15, NLH118 ####Director Consumer: SHAHLA WARREN ([phone])[facility] ([facility])[address] [place] [address] BLOOD GAS ARTERIALon 025 AMOUNT OF OXYGEN 100 Normal [facility] Comment on above: Order Comment: 30 mi n after vent changes Performed By: #### L [id number] ####Director Consumer: SHAHLA WARREN ([phone])[facility] ([facility])[address] [place] [address] Base excess Calc (Bld) [Moles/Vol] 8.0 mmol/L High -3.0-3.0 [facility] Comment on above: Order Comment: 30 mi n after vent changes Performed By: #### L AB76 ####Director Consumer: SHAHLA WARREN ([phone])[facility] ([facility])[address] [place] [address] CO2 [Moles/Vol] 36.1 mmol/L High 23.0-27.0 [facility] Comment on above: Order Comment: 30 mi n after vent changes Performed By: #### L AB76 ####Director Consumer: SHAHLA WARREN ([phone])[facility] ([facility])[address] [place] [address] HCO3 (Bld) [Moles/Vol] 34.3 mmol/L High 21.0-25.0 [facility] Comment on above: Order Comment: 30 mi n after vent changes Performed By: #### L [id number] ####Director Consumer: SHAHLA WARREN ([phone])[facility] [place] [address] Hemoglobin (Bld) [Mass/Vol] 10.3 g/dL Normal Screen only [facility] Comment on above: Order Comment: 30 mi n after vent changes Performed By: #### L AB76 ####Director Consumer: SHAHLA WARREN ([phone])[facility])[address] [place] [address] OXYGEN SATURATION (%) IN ARTERIAL BLOOD 91.9 % Low 95.0-100.0 [facility] Comment on above: Order Comment: 30 mi n after vent changes Performed By: #### L [id number] ####Director Consumer: SHAHLA WARREN ([phone])[facility])[address] [place] [address] PCO2 ARTERIAL 57.6 mm Hg High >35.0-<45.0 [facility] Comment on above: Order Comment: 30 mi n after vent changes Performed By: #### L [id number] ####Director Consumer: SHAHLA WARREN ([phone])[facility])[address] [place] [address] PH ARTERIAL 7.393 Normal 7.350-7.450 [facility] Comment on above: Order Comment: 30 mi n after vent changes Performed By: #### L AB76 ####Director Consumer: SHAHLA WARREN ([phone])[facility])[address] [place] [address] PO2 ARTERIAL 70.0 mm Hg Low 80.0-100.0 [facility] Comment on above: Order Comment: 30 mi n after vent changes Performed By: #### L [id number] ####Director Consumer: SHAHLA WARREN ([phone])[facility] ([facility])[address] [place] [address] SOURCE OF OXYGEN Ventilator Normal [facility] Comment on above: Order Comment: 30 mi n after vent changes Performed By: #### L AB76 ####Director Consumer: SHAHLA WARREN ([phone])[facility] [place] [address] AMOUNT OF OXYGEN 100 Normal [facility] Comment on above: Order Comment: While on ventilator Performed By: #### L AB76 ####Director Consumer: SHAHLA WARREN ([phone])[facility])[address] [place] [address] Base excess Calc (Bld) [Moles/Vol] 8.0 mmol/L High -3.0-3.0 [facility] Comment on above: Order Comment: While on ventilator Performed By: #### L [id number] ####Director Consumer: SHAHLA WARREN ([phone])[facility])[address] [place] [address] CO2 [Moles/Vol] 35.7 mmol/L High 23.0-27.0 [facility] Comment on above: Order Comment: While on ventilator Performed By: #### L [id number] ####Director Consumer: SHAHLA WARREN ([phone])[facility])[address] [place] [address] HCO3 (Bld) [Moles/Vol] 34.0 mmol/L High 21.0-25.0 [facility] Comment on above: Order Comment: While on ventilator Performed By: #### L [id number] ####Director Consumer: SHAHLA WARREN ([phone])[facility] ([facility])[address] [place] [address] Hemoglobin (Bld) [Mass/Vol] 9.4 g/dL Normal Screen only [facility] Comment on above: Order Comment: While on ventilator Performed By: #### L [id number] ####Director Consumer: SHAHLA WARREN ([phone])[facility])[address] [place] [address] OXYGEN SATURATION (%) IN ARTERIAL BLOOD 96.2 % Normal 95.0-100.0 [facility] Comment on above: Order Comment: While on ventilator Performed By: #### L [id number] ####Director Consumer: SHAHLA WARREN ([phone])[facility] ([facility])[address] [place] [address] PCO2 ARTERIAL 55.6 mm Hg High >35.0-<45.0 [facility] Comment on above: Order Comment: While on ventilator Performed By: #### L [id number] ####Director Consumer: SHAHLA WARREN ([phone])[facility] ([facility])[address] [place] [address] PH ARTERIAL 7.404 Normal 7.350-7.450 [facility] Comment on above: Order Comment: While on ventilator Performed By: #### L AB76 ####Director Consumer: SHAHLA WARREN ([phone])[facility] ([facility])[address] [place] [address] PO2 ARTERIAL 94.0 mm Hg Normal 80.0-100.0 [facility] Comment on above: Order Comment: While on ventilator Performed By: #### L AB76 ####Director Consumer: SHAHLA WARREN ([phone])[facility] ([facility])[address] [place] [address] SOURCE OF OXYGEN Ventilator Normal [facility] Comment on above: Order Comment: While on ventilator Performed By: #### L AB76 ####Director Consumer: SHAHLA WARREN ([phone])[facility] ([facility])[address] [place] [address] AMOUNT OF OXYGEN 80 Normal [facility] Comment on above: Performed By: #### L AB76 ####Director Consumer: SHAHLA WARREN ([phone])[facility] ([facility])[address] [place] [address] Base excess Calc (Bld) [Moles/Vol] 7.6 mmol/L High -3.0-3.0 [facility] Comment on above: Performed By: #### L AB76 ####Director Consumer: SHAHLA WARREN ([phone])[facility] ([facility])[address] [place] [address] CO2 [Moles/Vol] 35.7 mmol/L High 23.0-27.0 [facility] Comment on above: Performed By: #### L [id number] ####Director Consumer: SHAHLA WARREN ([phone])[facility])[address] [place] [address] HCO3 (Bld) [Moles/Vol] 33.9 mmol/L High 21.0-25.0 [facility] Comment on above: Performed By: #### L AB76 ####Director Consumer: SHAHLA WARREN ([phone])[facility] ([facility])[address] [place] [address] Hemoglobin (Bld) [Mass/Vol] 9.8 g/dL Normal Screen only [facility] Comment on above: Performed By: #### L [id number] ####Director Consumer: SHAHLA WARREN ([phone])[facility])[address] [place] [address] OXYGEN SATURATION (%) IN ARTERIAL BLOOD 94.5 % Low 95.0-100.0 [facility] Comment on above: Performed By: #### L [id number] ####Director Consumer: SHAHLA WARREN ([phone])[facility] ([facility])[address] [place] [address] PCO2 ARTERIAL 57.9 mm Hg High >35.0-<45.0 [facility] Comment on above: Performed By: #### L [id number] ####Director Consumer: SHAHLA WARREN ([phone])[facility] ([facility])[address] [place] [address] PH ARTERIAL 7.386 Normal 7.350-7.450 [facility] Comment on above: Performed By: #### L AB76 ####Director Consumer: SHAHLA WARREN ([phone])[facility] ([facility])[address] [place] [address] PO2 ARTERIAL 78.6 mm Hg Low 80.0-100.0 [facility] Comment on above: Performed By: #### L [id number] ####Director Consumer: SHAHLA WARREN ([phone])[facility] ([facility])[address] [place] [address] SOURCE OF OXYGEN Non-Invasive Ventilator Normal [facility] Comment on above: Performed By: #### L AB76 ####Director Consumer: SHAHLA WARREN ([phone])[facility])[address] [place] [address] AMOUNT OF OXYGEN 75 Normal [facility] Comment on above: Performed By: #### L AB76 ####Director Consumer: SHAHLA WARREN ([phone])[facility])[address] [place] [address] Base excess Calc (Bld) [Moles/Vol] 7.0 mmol/L High -3.0-3.0 [facility] Comment on above: Performed By: #### L AB76 ####Director Consumer: SHAHLA WARREN ([phone])[facility])[address] [place] [address] CO2 [Moles/Vol] 35.7 mmol/L High 23.0-27.0 [facility] Comment on above: Performed By: #### L AB76 ####Director Consumer: SHAHLA WARREN ([phone])[facility] ([facility])[address] [place] [address] HCO3 (Bld) [Moles/Vol] 33.8 mmol/L High 21.0-25.0 [facility] Comment on above: Performed By: #### L AB76 ####Director Consumer: SHAHLA WARREN ([phone])[facility])[address] [place] [address] Hemoglobin (Bld) [Mass/Vol] 10.2 g/dL Normal Screen only [facility] Comment on above: Performed By: #### L AB76 ####Director Consumer: SHAHLA WARREN ([phone])[facility])[address] [place] [address] OXYGEN SATURATION (%) IN ARTERIAL BLOOD 83.0 % Low 95.0-100.0 [facility] Comment on above: Performed By: #### L AB76 ####Director Consumer: SHAHLA [phone])[facility] [place] [address] PCO2 ARTERIAL 61.1 mm Hg High >35.0-<45.0 [facility] Comment on above: Performed By: #### L AB76 ####Director Consumer: SHAHLA WARREN ([phone])[facility])[address] [place] [address] PH ARTERIAL 7.361 Normal 7.350-7.450 [facility] Comment on above: Performed By: #### L AB76 ####Director Consumer: SHAHLA WARREN ([phone])[facility] ([facility])[address] [place] [address] PO2 ARTERIAL 53.4 mm Hg Low 80.0-100.0 [facility] Comment on above: Performed By: #### L AB76 ####Director Consumer: SHAHLA WARREN ([phone])[facility])[address] [place] [address] SOURCE OF OXYGEN High Flow Oxygen Therapy (FiO2) Normal [facility] Comment on above: Performed By: #### L AB76 ####Director Consumer: SHAHLA WARREN ([phone])[facility])[address] [place] [address] AMOUNT OF OXYGEN 35% Normal [facility] Comment on above: Performed By: #### L AB76 ####Director Consumer: SHAHLA WARREN ([phone])[facility] ([facility])[address] [place] [address] Base excess Calc (Bld) [Moles/Vol] 9.5 mmol/L High -3.0-3.0 [facility] Comment on above: Performed By: #### L AB76 ####Director Consumer: SHAHLA WARREN ([phone])[facility])[address] [place] [address] CO2 [Moles/Vol] 35.6 mmol/L High 23.0-27.0 [facility] Comment on above: Performed By: #### L [id number] ####Director Consumer: SHAHLA WARREN ([phone])[facility] ([facility])[address] [place] [address] HCO3 (Bld) [Moles/Vol] 34.1 mmol/L High 21.0-25.0 [facility] Comment on above: Performed By: #### L [id number] ####Director Consumer: SHAHLA WARREN ([phone])[facility] [place] [address] Hemoglobin (Bld) [Mass/Vol] 10.1 g/dL Normal Screen only [facility] Comment on above: Performed By: #### L [id number] ####Director Consumer: SHAHLA WARREN ([phone])[facility] ([facility])[address] [place] [address] OXYGEN SATURATION (%) IN ARTERIAL BLOOD 96.6 % Normal 95.0-100.0 [facility] Comment on above: Performed By: #### L [id number] ####Director Consumer: SHAHLA WARREN ([phone])[facility] [place] [address] PCO2 ARTERIAL 47.1 mm Hg High >35.0-<45.0 [facility] Comment on above: Performed By: #### L [id number] ####Director Consumer: SHAHLA WARREN ([phone])[facility] ([facility])[address] [place] [address] PH ARTERIAL 7.478 High 7.350-7.450 [facility] Comment on above: Performed By: #### L AB76 ####Director Consumer: SHAHLA WARREN ([phone])[facility] ([facility])[address] [place] [address] PO2 ARTERIAL 95.1 mm Hg Normal 80.0-100.0 [facility] Comment on above: Performed By: #### L AB76 ####Director Consumer: SHAHLA WARREN ([phone])[facility] ([facility])[address] [place] [address] SOURCE OF OXYGEN Ventilator Normal [facility] Comment on above: Performed By: #### L [id number] ####Director Consumer: SHAHLA WARREN ([phone])[facility] [place] [address] BODY FLUID CELL COUNT WITH R EFLEX DIFFon 12-28-2024 RBC, BODY FLUID (MANUAL) 5463 RBC/uL Normal [facility] Comment on above: Performed By: #### L [id number], [id number] ####Director Consumer: SHAHLA WARREN ([phone])[facility] [place] [address] TYPE OF BODY FLUID Other (See Comment) Normal [facility] Comment on above: Result Comment: BAL RUL Performed By: #### L [id number], [id number] ####Director Consumer: SHAHLA WARREN ([phone])[facility] [place] [address] WBC, BODY FLUID (MANUAL) 438 cells/uL High <=5 [facility] Comment on above: Performed By: #### L [id number], [id number] ####Director Consumer: SHAHLA WARREN ([phone])[facility])[address] [place] [address] BODY FLUID DIFFERENTIALon CELLS COUNTED TOTAL (#) IN BODY FLUID 200 Normal [facility] Comment on above: Performed By: #### L [id number], [id number] ####Director Consumer: SHAHLA WARREN ([phone])[facility] ([facility])[address] [place] [address] [place] LYMPHOCYTES/100 LEUKOCYTES IN BODY FLUID BY MAN CT 4 % Normal [facility] Comment on above: Performed By: #### L [id number], [id number] ####Director Consumer: SHAHLA WARREN ([phone])[facility] ([facility])[address] [place] [address] [place] MESOTHELIAL CELLS/100 LEUKOCYTES IN BODY FLUID BY MANUAL COUNT 1 % Normal [facility] Comment on above: Performed By: #### L [id number], [id number] ####Director Consumer: SHAHLA WARREN ([phone])[facility] [place] [address] [place] MONOCYTES+MACROPHAGES/ 100 WBC IN BODY FLUID BY MAN CT 10 % Normal [facility] Comment on above: Performed By: #### L [id number], [id number] ####Director Consumer: SHAHLA WARREN ([phone])[facility] ([facility])[address] [place] [address] Neutrophils/100 WBC (Bld) 75 % Normal [facility] Comment on above: Performed By: #### L [id number], [id number] ####Director Consumer: SHAHLA WARREN ([phone])[facility] ([facility])[address] [place] [address] OTHER/100 LEUKOCYTES IN BODY FLUID BY MANUAL COUNT 11 % Normal [facility] Comment on above: Result Comment: DARIO Wylie COMMENTS:Slide sent for pathology review Performed By: #### L [id number], [id number] ####Director Consumer: SHAHLA WARREN ([phone])[facility] ([facility])[address] [place] [address] CALCIUM, IONIZEDon CALCIUM IONIZED 4.60 mg/dL Normal 4.30-5.20 [facility] Comment on above: Performed By: #### L [id number] ####Director Consumer: SHAHLA WARREN ([phone])[facility] ([facility])[address] [place] [address] PH, IONIZED CALCIUM 7.47 High 7.31-7.46 [facility] Comment on above: Performed By: #### L [id number] ####Director Consumer: SHAHLA WARREN ([phone])[facility] ([facility])[address] [place] [address] CBC WITH AUTO DIFFERENTIALon 12-28-2024 Erythrocyte distribution width (RBC) [Ratio] 13.3 % Normal 11.5-15.0 [facility] Comment on above: Performed By: #### L [id number], [id number] ####Director Consumer: SHAHLA WARREN ([phone])[facility] [address] Hematocrit (Bld) [Volume fraction] 26.9 % Low 40.0-52.0 [facility] Comment on above: Performed By: #### L [id number], [id number] ####Director Consumer: SHAHLA WARREN ([phone])[address] Hemoglobin (Bld) [Mass/Vol] 9.3 g/dL Low 13.0-18.0 [facility] Comment on above: Performed By: #### L [id number], [id number] ####Director Consumer: SHAHLA WARREN ([phone])[address] MCH (RBC) [Entitic mass] 30.2 pg Normal 26.0-34.0 [facility] Comment on above: Performed By: #### L [id number], [id number] ####Director Consumer: SHAHLA WARREN ([phone])[facility] ([facility])[address] [place] [address] MCHC 34.6 % Normal 30.5-36.0 [facility] Comment on above: Performed By: #### L [id number], [id number] ####Director Consumer: SHAHLA WARREN ([phone])[address] MCV (RBC) [Entitic vol] 87.3 fL Normal 77.0-99.0 [facility] Comment on above: Performed By: #### L [id number], [id number] ####Director Consumer: SHAHLA WARREN ([phone])[address] Platelet mean volume (Bld) [Entitic vol] 10.2 fL Normal 9.0-12.7 [facility] Comment on above: Performed By: #### L [id number], [id number] ####Director Consumer: SHAHLA WARREN ([phone])[facility])[address] [place] [address] Platelets (Bld) [#/Vol] 146 10*3/uL Normal 140-440 [facility] Comment on above: Performed By: #### Prem [id number], [id number] ####Director Consumer: SHAHLA WARREN ([phone])[facility] ([facility])[address] [place] [address] RBC (Bld) [#/Vol] 3.08 10*6/uL Low 4.40-5.90 [facility] Comment on above: Performed By: #### Prem [id number], [id number] ####Director Consumer: SHAHLA WARREN ([phone])[facility] ([facility])[address] [place] [address] WBC (Bld) [#/Vol] 13.5 10*3/uL High 3.6-10.7 [facility] Comment on above: Performed By: #### Prem [id number], [id number] ####Director Consumer: SHAHLA WARREN ([phone])[facility] ([facility])[address] [place] [address] CKon 12-28-2024 CK [Catalytic activity/Vol] 4747 U/L High 30-185 [facility] Comment on above: Performed By: #### L AB17, [id number], LAB62, [id number] ####Director Consumer: SHAHLA WARREN ([phone])[facility] ([facility])[address] [place] [address] COMPREHENSIVE METABOLIC PANE Clifford 12-28-2024 Albumin [Mass/Vol] 2.4 g/dL Low 3.5-5.0 [facility] Comment on above: Performed By: #### L AB17, [id number], LAB62, JLO070 ####Director Consumer: SHAHLA WARREN ([phone])[facility])[address] [place] [address] ALP [Catalytic activity/Vol] 44 U/L Normal 40-150 [facility] Comment on above: Performed By: #### L AB17, [id number], LAB62, WHW223 ####Director Consumer: SHAHLA WARREN ([phone])[facility] ([facility])[address] [place] [address] ALT [Catalytic activity/Vol] 156 U/L High <40 [facility] Comment on above: Performed By: #### L AB17, [id number], LAB62, INH890 ####Director Consumer: SHAHLA WARREN ([phone])[facility] ([facility])[address] [place] [address] Anion gap [Moles/Vol] 9 mmol/L Normal 3-13 [facility] Comment on above: Performed By: #### L AB17, [id number], LAB62, KWF269 ####Director Consumer: SHAHLA WARREN ([phone])[facility] ([facility])[address] [place] [address] AST [Catalytic activity/Vol] 198 U/L High <34 [facility] Comment on above: Performed By: #### L AB17, [id number], LAB62, FLF561 ####Director Consumer: SHAHLA WARREN ([phone])[facility] ([facility])[address] [place] [address] Bilirubin [Mass/Vol] 0.4 mg/dL Normal <1.2 [facility] Comment on above: Performed By: #### L AB17, KVH237, LAB62, GWV108 ####Director Consumer: SHAHLA WARREN ([phone])[facility] ([facility])[address] [place] [address] Calcium [Mass/Vol] 9.0 mg/dL Normal 8.4-10.2 [facility] Comment on above: Performed By: #### L AB17, [id number], LAB62, RBZ671 ####Director Consumer: SHAHLA WARREN ([phone])[facility])[address] [place] [address] Chloride [Moles/Vol] 109 mmol/L High 98-107 [facility] Comment on above: Performed By: #### L AB17, CYX545, LAB62, AGI387 ####Director Consumer: SHAHLA WARREN ([phone])[facility])[address] [place] [address] [place] CO2 [Moles/Vol] 31 mmol/L High 22-29 [facility] Comment on above: Performed By: #### L AB17, MLC857, LAB62, PIB363 ####Director Consumer: SHAHLA WARREN ([phone])[facility])[address] [place] [address] Creatinine [Mass/Vol] 1.23 mg/dL Normal 0.72-1.25 [facility] Comment on above: Performed By: #### L AB17, VQS322, LAB62, YAG982 ####Director Consumer: SHAHLA WARREN ([phone])[facility])[address] [place] [address] [place] GLOMERULAR FILTRATION RATE ML/MIN/1.73 SQ M.PREDICTED 78.5 mL/min/1.73m*2 Normal >60.0 [facility] Comment on above: Result Comment: Calc ulation based on the Chronic Kidney Disease Epidemiology Collaboration (CKD-EPI) equation refit without adjustment for race Performed By: #### L AB17, [id number], LAB62, DRC597 ####Director Consumer: SHAHLA WARREN ([phone])[address] Glucose [Mass/Vol] 122 mg/dL High 74-100 [facility] Comment on above: Performed By: #### L AB17, CVI422, LAB62, CVQ480 ####Director Consumer: SHAHLA WARREN ([phone])[facility])[address] [place] [address] [place] Potassium [Moles/Vol] 3.1 mmol/L Low 3.5-5.1 [facility] Comment on above: Result Comment: [facility] potassium values may be up to 0.5 mmol/L lower than serum values. Performed By: #### L AB17, [id number], LAB62, ETD100 ####Director Consumer: SHAHLA WARREN ([phone])[facility])[address] [place] [address] Protein [Mass/Vol] 5.8 g/dL Low 6.4-8.3 [facility] Comment on above: Performed By: #### L AB17, FLQ789, LAB62, HUW786 ####Director Consumer: SHAHLA WARREN ([phone])[facility])[address] [place] [address] Sodium [Moles/Vol] 149 mmol/L High 136-145 [facility] Comment on above: Performed By: #### L AB17, ECS159, LAB62, ZTQ280 ####Director Consumer: SHAHLA WARREN ([phone])[facility])[address] [place] [address] Urea nitrogen [Mass/Vol] 20 mg/dL Normal 8-21 [facility] Comment on above: Performed By: #### L AB17, [id number], LAB62, OOA506 ####Director Consumer: SHAHLA WARREN ([phone])[facility])[address] [place] [address] FUNGAL CULTUREon 12-28-2024 FUNGAL CULTURE Normal [facility] Comment on above: Performed By: #### L [id number] ####Director Consumer: SHAHLA WARREN ([phone])[facility])[address] [place] [address] MAGNESIUMon 12-28-2024 Magnesium [Mass/Vol] 2.5 mg/dL Normal 1.6-2.6 [facility] Comment on above: Result Comment: DARIO R COMMENTS:Higher values can be expected in females during menses. Performed By: #### L AB103, [id number], LAB15 ####Director Consumer: SHAHLA WARREN ([phone])[facility])[address] [place] [address] Magnesium [Mass/Vol] 2.8 mg/dL High 1.6-2.6 [facility] Comment on above: Result Comment: ORDE R COMMENTS:Higher values can be expected in females during menses. Performed By: #### L AB103, LAB15, BUP099 ####Director Consumer: SHAHLA WARREN ([phone])[facility] ([facility])[address] [place] [address] Magnesium [Mass/Vol] 2.6 mg/dL Normal 1.6-2.6 [facility] Comment on above: Result Comment: ORDE R COMMENTS:Higher values can be expected in females during menses. Performed By: #### L AB17, [id number], LAB62, XMA612 ####Director Consumer: SHAHLA WARREN ([phone])[facility] [place] [address] MANUAL DIFFERENTIAL (CELLAVI ARLEEN)on 12-28-2024 BAND NEUTROPHILS TOTAL PER COUNTED LEUKOCYTES BY MANUAL COUNT 1 [facility] Comment on above: Performed By: #### L [id number], [id number] ####Director Consumer: SHAHLA WARREN ([phone])[facility] ([facility])[address] [place] [address] BANDS (10*3/UL) IN BLOOD-CELLAVISION 0.1 10*3/uL High <=0.0 [facility] Comment on above: Performed By: #### L [id number], [id number] ####Director Consumer: SHAHLA WARREN ([phone])[facility] ([facility])[address] [place] [address] BASOPHILS TOTAL PER COUNTED LEUKOCYTES BY MANUAL COUNT [facility] Comment on above: Performed By: #### L [id number], [id number] ####Director Consumer: SHAHLA WARREN ([phone])[facility] ([facility])[address] [place] [address] BLASTS TOTAL PER COUNTED LEUKOCYTES BY MANUAL COUNT [facility] Comment on above: Performed By: #### L [id number], [id number] ####Director Consumer: SHAHLA WARREN ([phone])[facility] ([facility])[address] [place] [address] EOSINOPHILS TOTAL PER COUNTED LEUKOCYTES BY MANUAL COUNT [facility] Comment on above: Performed By: #### L [id number], [id number] ####Director Consumer: SHAHLA WARREN ([phone])[facility] ([facility])[address] [place] [address] LYMPHOCYTES (10*3/UL) IN BLOOD-CELLAVISION 1.4 10*3/uL Normal 1.0-4.3 [facility] Comment on above: Performed By: #### L [id number], [id number] ####Director Consumer: SHAHLA WARREN ([phone])[facility] ([facility])[address] [place] [address] LYMPHOCYTES TOTAL PER COUNTED LEUKOCYTES BY MANUAL COUNT 10 [facility] Comment on above: Performed By: #### L [id number], [id number] ####Director Consumer: SHAHLA WARREN ([phone])[facility] ([facility])[address] [place] [address] LYMPHOCYTES/100 LEUKOCYTES IN BLOOD-CELLAVISION 10 % Low 15-45 [facility] Comment on above: Performed By: #### L [id number], [id number] ####Director Consumer: SHAHLA WARREN ([phone])[facility] ([facility])[address] [place] [address] METAMYELOCYTES TOTAL PER COUNTED LEUKOCYTES BY MANUAL COUNT [facility] Comment on above: Performed By: #### L [id number], [id number] ####Director Consumer: SHAHLA WARREN ([phone])[facility] ([facility])[address] [place] [address] MONOCYTES (10*3/UL) IN BLOOD-CELLAVISION 0.7 10*3/uL Normal 0.0-0.9 [facility] Comment on above: Performed By: #### L [id number], [id number] ####Director Consumer: SHAHLA WARREN ([phone])[facility])[address] [place] [address] MONOCYTES TOTAL PER COUNTED LEUKOCYTES BY MANUAL COUNT 5 [facility] Comment on above: Performed By: #### L [id number], [id number] ####Director Consumer: SHAHLA WARREN ([phone])[facility] ([facility])[address] [place] [address] [place] MONOCYTES/100 LEUKOCYTES IN BLOOD-LEWIS 5 % Normal 5-13 [facility] Comment on above: Performed By: #### L [id number], [id number] ####Director Consumer: SHAHLA WARREN ([phone])[facility] [place] [address] [place] MYELOCYTES (10*3/UL) IN BLOOD-CELLAVISION 0.1 10*3/uL High <=0.0 [facility] Comment on above: Performed By: #### L [id number], [id number] ####Director Consumer: SHAHLA WARREN ([phone])[facility] [place] [address] [place] MYELOCYTES COUNTED BY MANUAL COUNT 1 Normal [facility] Comment on above: Performed By: #### L [id number], [id number] ####Director Consumer: SHAHLA WARREN ([phone])[facility] [place] [address] [place] MYELOCYTES/100 LEUKOCYTES IN BLOOD-CELLAVISION 1 % High <=0 [facility] Comment on above: Performed By: #### L [id number], [id number] ####Director Consumer: SHAHLA WARREN ([phone])[facility])[address] [place] [address] [place] NEUTROPHILS BAND FORM/100 LEUKOCYTES IN BLOOD-CELLAVISI 1 % High <=0 [facility] Comment on above: Performed By: #### L [id number], [id number] ####Director Consumer: SHAHLA WARREN ([phone])[facility] ([facility])[address] [place] [address] [place] NEUTROPHILS TOTAL PER COUNTED LEUKOCYTES BY MANUAL COUNT 83 Normal [facility] Comment on above: Performed By: #### L [id number], [id number] ####Director Consumer: SHAHLA WARREN ([phone])[facility] ([facility])[address] [place] [address] [place] NUCLEATED ERYTHROCYTES/100 LEUKOCTES IN BLOOD-CELLAVISION 3 % High 0-2 [facility] Comment on above: Performed By: #### L [id number], [id number] ####Director Consumer: SHAHLA WARREN ([phone])[facility] ([facility])[address] [place] [address] [place] POIKILOCYTOSIS (PRESENCE) IN BLOOD BY LIGHT MICROSCOPY Slight Abnormal (none) [facility] Comment on above: Performed By: #### L [id number], [id number] ####Director Consumer: SHAHLA WARREN ([phone])[facility] ([facility])[address] [place] [address] [place] POLYCHROMASIA IN BLOOD BY LIGHT MICROSCOPY Slight Abnormal (none) [facility] Comment on above: Performed By: #### L [id number], [id number] ####Director Consumer: SHAHLA WARREN ([phone])[facility])[address] [place] [address] [place] PROMYELOCYTES TOTAL PER COUNTED LEUKOCYTES BY MANUAL COUNT Normal [facility] Comment on above: Performed By: #### L [id number], [id number] ####Director Consumer: SHAHLA WARREN ([phone])[facility] ([facility])[address] [place] [address] [place] RBC MORPHOLOGY IN BLOOD abnormal Normal [facility] Comment on above: Performed By: #### L [id number], [id number] ####Director Consumer: SHAHLA WARREN ([phone])[facility] [place] [address] [place] SEGMENTED NEUTROPHILS (10*3/UL) IN BLOOD-CELLAVISION 11.3 10*3/uL High 1.8-7.5 [facility] Comment on above: Performed By: #### L [id number], [id number] ####Director Consumer: SHAHLA WARREN ([phone])[facility] ([facility])[address] [place] [address] [place] SEGMENTED NEUTROPHILS/100 LEUKOCYTES-CE 83 % High 38-82 [facility] Comment on above: Performed By: #### L [id number], [id number] ####Director Consumer: SHAHLA WARREN ([phone])[facility] ([facility])[address] [place] [address] [place] STOMATOCYTES IN BLOOD BY LIGHT MICROSCOPY Slight Abnormal (none) [facility] Comment on above: Performed By: #### L [id number], [id number] ####Director Consumer: SHAHLA WARREN ([phone])[facility] ([facility])[address] [place] [address] UNCLASSIFIED CELLS TOTAL PER COUNTED LEUKOCYTES BY MANUAL COUNT Normal [facility] Comment on above: Performed By: #### L [id number], [id number] ####Director Consumer: SHAHLA WARREN ([phone])[facility] ([facility])[address] [place] [address] VARIANT LYMPHOCYTES TOTAL PER COUNTED LEUKOCYTES BY MANUAL COUNT Normal [facility] Comment on above: Performed By: #### L [id number], [id number] ####Director Consumer: SHAHLA WARREN ([phone])[facility] ([facility])[address] [place] [address] [place] PHOSPHORUSon 12-28-2024 Phosphate [Mass/Vol] 2.4 mg/dL Normal 2.3-4.7 [facility] Comment on above: Performed By: #### Prem AB103, [id number], LAB15 ####Director Consumer: SHAHLA WARREN ([phone])[facility] ([facility])[address] [place] [address] [place] Phosphate [Mass/Vol] 1.8 mg/dL Low 2.3-4.7 [facility] Comment on above: Performed By: #### L AB103, LAB15, AZR247 ####Director Consumer: SHAHLA WARREN ([phone])[facility] ([facility])[address] [place] [address] [place] Phosphate [Mass/Vol] 1.2 mg/dL Low 2.3-4.7 [facility] Comment on above: Performed By: #### L AB17, [id number], LAB62, [id number] ####Director Consumer: SHAHLA WARREN ([phone])[address] Progress Noteon 12-28-2024 Progress Note Normal [facility] Progress Note Normal [facility] Progress Note OCCUPATIONAL THERAPY [facility] Name/MRN: Chelsea Cole ([id number]) Date: 12/28/2024 OT eval orders received. Pt currently with active bedrest orders. Will follow and attempt as able. Mamie Ocampo, OTR/L Normal [facility] Progress Note Normal [facility] Progress Note Normal [facility] RESPIRATORY CULTURE AND STAI Non 12-28-2024 RESPIRATORY CULTURE AND STAIN Normal [facility] Comment on above: Performed By: #### L [id number] ####Director Consumer: SHAHLA WARREN ([phone])[address] XR CHEST 1 VIEWon 12-28-2024 XR CHEST 1 VIEW Normal [facility] XR CHEST 1 VIEW Normal [facility] XR CHEST 1 VIEW Normal [facility] XR RIBS 4 VIEWS BILATERAL WI TH POSTERANTERIOR CHESTon 12-28-2024 XR RIBS 4 VIEWS BILATERAL WITH POSTERANTERIOR CHEST Normal [facility] [id number] 12-27-2024 [id number] Normal [facility] BLOOD GAS ARTERIALon 025 AMOUNT OF OXYGEN 35%, 8 peep Normal [facility] Comment on above: Performed By: #### L AB76 ####Director Consumer: SHAHLA WARREN ([phone])[address] Base excess Calc (Bld) [Moles/Vol] 6.1 mmol/L High -3.0-3.0 [facility] Comment on above: Performed By: #### L AB76 ####Director Consumer: SHAHLA WARREN ([phone])[facility] ([facility])[address] [place] [address] [place] CO2 [Moles/Vol] 32.2 mmol/L High 23.0-27.0 [facility] Comment on above: Performed By: #### L AB76 ####Director Consumer: SHAHLA WARREN ([phone])[facility])[address] [place] [address] HCO3 (Bld) [Moles/Vol] 30.8 mmol/L High 21.0-25.0 [facility] Comment on above: Performed By: #### L AB76 ####Director Consumer: SHAHLA WARREN ([phone])[facility] [place] [address] Hemoglobin (Bld) [Mass/Vol] 9.6 g/dL Normal Screen only [facility] Comment on above: Performed By: #### L AB76 ####Director Consumer: SHAHLA WARREN ([phone])[facility] [place] [address] OXYGEN SATURATION (%) IN ARTERIAL BLOOD 96.4 % Normal 95.0-100.0 [facility] Comment on above: Performed By: #### L AB76 ####Director Consumer: SHAHLA WARREN ([phone])[facility] [place] [address] PCO2 ARTERIAL 45.3 mm Hg High >35.0-<45.0 [facility] Comment on above: Performed By: #### L AB76 ####Director Consumer: SHAHLA WARREN ([phone])[facility] [place] [address] PH ARTERIAL 7.450 Normal 7.350-7.450 [facility] Comment on above: Performed By: #### L AB76 ####Director Consumer: SHAHLA WARREN ([phone])[facility] [place] [address] [place] PO2 ARTERIAL 100.9 mm Hg High 80.0-100.0 [facility] Comment on above: Performed By: #### L AB76 ####Director Consumer: SHAHLA WARREN ([phone])[facility])[address] [place] [address] SOURCE OF OXYGEN Ventilator Normal [facility] Comment on above: Result Comment: 35%, 8 peep Performed By: #### L AB76 ####Director Consumer: SHAHLA WARREN ([phone])[facility] ([facility])[address] [place] [address] AMOUNT OF OXYGEN 40 Normal [facility] Comment on above: Performed By: #### L [id number] ####Director Consumer: SHAHLA WARREN ([phone])[facility])[address] [place] [address] Base excess Calc (Bld) [Moles/Vol] 6.8 mmol/L High -3.0-3.0 [facility] Comment on above: Performed By: #### L [id number] ####Director Consumer: SHAHLA WARREN ([phone])[facility] ([facility])[address] [place] [address] CO2 [Moles/Vol] 31.1 mmol/L High 23.0-27.0 [facility] Comment on above: Performed By: #### L [id number] ####Director Consumer: SHAHLA WARREN ([phone])[facility])[address] [place] [address] HCO3 (Bld) [Moles/Vol] 29.9 mmol/L High 21.0-25.0 [facility] Comment on above: Performed By: #### L [id number] ####Director Consumer: SHAHLA WARREN ([phone])[facility])[address] [place] [address] Hemoglobin (Bld) [Mass/Vol] 12.0 g/dL Normal Screen only [facility] Comment on above: Performed By: #### L [id number] ####Director Consumer: SHAHLA [phone])[facility])[address] [place] [address] OXYGEN SATURATION (%) IN ARTERIAL BLOOD 98.1 % Normal 95.0-100.0 [facility] Comment on above: Performed By: #### L [id number] ####Director Consumer: SHAHLA WARREN ([phone])[facility])[address] [place] [address] PCO2 ARTERIAL 37.4 mm Hg Normal >35.0-<45.0 [facility] Comment on above: Performed By: #### L [id number] ####Director Consumer: SHAHLA WARREN ([phone])[facility])[address] [place] [address] PH ARTERIAL 7.521 High 7.350-7.450 [facility] Comment on above: Performed By: #### L [id number] ####Director Consumer: SHAHLA WARREN ([phone])[facility])[address] [place] [address] PO2 ARTERIAL 144.9 mm Hg High 80.0-100.0 [facility] Comment on above: Performed By: #### L [id number] ####Director Consumer: SHAHLA WARREN ([phone])[facility])[address] [place] [address] SOURCE OF OXYGEN Ventilator Normal [facility] Comment on above: Performed By: #### L [id number] ####Director Consumer: SHAHLA WARREN ([phone])[facility])[address] [place] [address] CALCIUM, IONIZEDon 5 CALCIUM IONIZED 3.80 mg/dL Low 4.30-5.20 [facility] Comment on above: Performed By: #### L AB54 ####Director Consumer: SHAHLA WARREN ([phone])[facility])[address] [place] [address] PH, IONIZED CALCIUM 7.58 High 7.31-7.46 [facility] Comment on above: Performed By: #### L AB54 ####Director Consumer: SHAHLA [phone])[facility])[address] [place] [address] CBC WITH AUTO DIFFERENTIALon 12-27-2024 Erythrocyte distribution width (RBC) [Ratio] 13.2 % Normal 11.5-15.0 [facility] Comment on above: Performed By: #### L [id number], [id number] ####Director Consumer: SHAHLA WARREN ([phone])[facility])[address] [place] [address] Hematocrit (Bld) [Volume fraction] 26.4 % Low 40.0-52.0 [facility] Comment on above: Performed By: #### L [id number], [id number] ####Director Consumer: SHAHLA WARREN ([phone])[address] Hemoglobin (Bld) [Mass/Vol] 9.6 g/dL Low 13.0-18.0 [facility] Comment on above: Performed By: #### L [id number], [id number] ####Director Consumer: SHAHLA WARREN ([phone])[address] IPF 4 Normal [facility] Comment on above: Performed By: #### L [id number], [id number] ####Director Consumer: SHAHLA WARREN ([phone])[address] MCH (RBC) [Entitic mass] 31.2 pg Normal 26.0-34.0 [facility] Comment on above: Performed By: #### L [id number], [id number] ####Director Consumer: SHAHLA WARREN ([phone])[address] MCHC 36.4 % High 30.5-36.0 [facility] Comment on above: Performed By: #### L [id number], [id number] ####Director Consumer: SHAHLA WARREN ([phone])[facility])[address] [place] [address] MCV (RBC) [Entitic vol] 85.7 fL Normal 77.0-99.0 [facility] Comment on above: Performed By: #### L [id number], [id number] ####Director Consumer: SHAHLA WARREN ([phone])[facility])[address] [place] [address] Platelet mean volume (Bld) [Entitic vol] 10.1 fL Normal 9.0-12.7 [facility] Comment on above: Performed By: #### L [id number], [id number] ####Director Consumer: SHAHLA WARREN ([phone])[facility])[address] [place] [address] Platelets (Bld) [#/Vol] 130 10*3/uL Low 140-440 [facility] Comment on above: Performed By: #### L [id number], [id number] ####Director Consumer: SHAHLA WARREN ([phone])[facility])[address] [place] [address] RBC (Bld) [#/Vol] 3.08 10*6/uL Low 4.40-5.90 [facility] Comment on above: Performed By: #### L [id number], [id number] ####Director Consumer: SHAHLA WARREN ([phone])[facility])[address] [place] [address] WBC (Bld) [#/Vol] 10.5 10*3/uL Normal 3.6-10.7 [facility] Comment on above: Performed By: #### L [id number], [id number] ####Director Consumer: SHAHLA WARREN ([phone])[facility])[address] [place], [place] [address] 12-27-2024 CK [Catalytic activity/Vol] 5171 U/L High 30-185 [facility] Comment on above: Performed By: #### L AB62, LAB17, MVZ908, TAO572 ####Director Consumer: SHAHLA WARREN ([phone])[facility])[address] [place] [address] COMPREHENSIVE METABOLIC PANE Clifford 12-27-2024 Albumin [Mass/Vol] 2.2 g/dL Low 3.5-5.0 [facility] Comment on above: Performed By: #### L AB62, LAB17, GIP300, QYW507 ####Director Consumer: SHAHLA WARREN ([phone])[facility])[address] [place] [address] ALP [Catalytic activity/Vol] 28 U/L Low 40-150 [facility] Comment on above: Performed By: #### L AB62, LAB17, PSB707, HUN836 ####Director Consumer: SHAHLA WARREN ([phone])[facility])[address] [place] [address] ALT [Catalytic activity/Vol] 181 U/L High <40 [facility] Comment on above: Performed By: #### L AB62, LAB17, UNB779, RNV312 ####Director Consumer: SHAHLA WARREN ([phone])[facility])[address] [place] [address] Anion gap [Moles/Vol] 9 mmol/L Normal 3-13 [facility] Comment on above: Performed By: #### L AB62, LAB17, AYZ520, WZS770 ####Director Consumer: SHAHLA WARREN ([phone])[facility])[address] [place] [address] AST [Catalytic activity/Vol] 212 U/L High <34 [facility] Comment on above: Performed By: #### L AB62, LAB17, FOR079, FAE565 ####Director Consumer: SHAHLA WARREN ([phone])[facility])[address] [place] [address] Bilirubin [Mass/Vol] 0.5 mg/dL Normal <1.2 [facility] Comment on above: Performed By: #### L AB62, LAB17, SXY482, EQB920 ####Director Consumer: SHAHLA WARREN ([phone])[facility])[address] [place] [address] Calcium [Mass/Vol] 8.4 mg/dL Normal 8.4-10.2 [facility] Comment on above: Performed By: #### L AB62, LAB17, BSQ574, AAF092 ####Director Consumer: SHAHLA WARREN ([phone])[facility])[address] [place] [address] Chloride [Moles/Vol] 97 mmol/L Low 98-107 [facility] Comment on above: Performed By: #### L AB62, LAB17, HOV454, PNI251 ####Director Consumer: SHAHLA WARREN ([phone])[facility])[address] [place] [address] CO2 [Moles/Vol] 27 mmol/L Normal 22-29 [facility] Comment on above: Performed By: #### L AB62, LAB17, XWW932, XBY783 ####Director Consumer: SHAHLA WARREN ([phone])[facility])[address] [place] [address] Creatinine [Mass/Vol] 1.20 mg/dL Normal 0.72-1.25 [facility] Comment on above: Performed By: #### L AB62, LAB17, SLR843, UKG806 ####Director Consumer: SHAHLA WARREN ([phone])[facility])[address] [place] [address] GLOMERULAR FILTRATION RATE ML/MIN/1.73 SQ M.PREDICTED 80.9 mL/min/1.73m*2 Normal >60.0 [facility] Comment on above: Result Comment: Calc ulation based on the Chronic Kidney Disease Epidemiology Collaboration (CKD-EPI) equation refit without adjustment for race Performed By: #### L AB62, LAB17, OYJ982, VDS719 ####Director Consumer: SHAHLA WARREN ([phone])[facility])[address] [place] [address] Glucose [Mass/Vol] 153 mg/dL High 74-100 [facility] Comment on above: Performed By: #### L AB62, LAB17, AMZ235, PXR891 ####Director Consumer: SHAHLA WARREN ([phone])[facility])[address] [place] [address] Potassium [Moles/Vol] 3.0 mmol/L Low 3.5-5.1 [facility] Comment on above: Result Comment: [facility] potassium values may be up to 0.5 mmol/L lower than serum values. Performed By: #### L AB62, LAB17, TZK665, OWS585 ####Director Consumer: SHAHLA WARREN ([phone])[facility])[address] [place] [address] Protein [Mass/Vol] 5.3 g/dL Low 6.4-8.3 [facility] Comment on above: Performed By: #### L AB62, LAB17, WXW866, LNC466 ####Director Consumer: SHAHLA WARREN ([phone])[facility])[address] [place] [address] Sodium [Moles/Vol] 133 mmol/L Low 136-145 [facility] Comment on above: Performed By: #### L AB62, LAB17, LWB508, MTV221 ####Director Consumer: SHAHLA WARREN ([phone])[facility])[address] [place] [address] Urea nitrogen [Mass/Vol] 26 mg/dL High 8-21 [facility] Comment on above: Performed By: #### L AB62, LAB17, INZ847, UAZ787 ####Director Consumer: SHAHLA WARREN ([phone])[facility])[address] [place] [address] HEAD WO IV CONTRASTon CT HEAD WO IV CONTRAST Normal [facility] Consulton 12-27-2024 Consult Normal [facility] Consult Normal [facility] Consult Normal [facility] ECG 12-LEADon 12-27-2024 ECG 12-LEAD IMPRESSION: Sinus rhythm ST elev, probable normal early repol pattern Borderline prolonged QT interval Electronically Signed On 12-27-2024 10:24:06 EDT by Wing Welch [facility] ECG 12-LEAD IMPRESSION: Sinus rhythm ST elev, probable normal early repol pattern Electronically Signed On 12-27-2024 09:45:14 EDT by Wing Welch [facility] MAGNESIUMon 12-27-2024 Magnesium [Mass/Vol] 2.3 mg/dL Normal 1.6-2.6 [facility] Comment on above: Result Comment: DARIO Wylie COMMENTS:Higher values can be expected in females during menses. Performed By: #### L AB62, LAB17, ZTY446, FLM054 ####Director Consumer: SHAHLA WARREN ([phone])[facility])[address] [place] [address] MANUAL DIFFERENTIALon 2024 BAND NEUTROPHILS TOTAL PER COUNTED LEUKOCYTES BY MANUAL COUNT 23 Normal [facility] Comment on above: Performed By: #### L [id number], ABI0465 ####Director Consumer: SHAHLA WARREN ([phone])[facility])[address] [place] [address] BANDS 2.4 10*3/uL High <=0.0 [facility] Comment on above: Performed By: #### L [id number], QDE9336 ####Director Consumer: SHAHLA WARREN ([phone])[address] CELLS COUNTED TOTAL (#) IN BLOOD 100 Normal [facility] Comment on above: Performed By: #### L PV2654, [id number] ####Director Consumer: SHAHLA WARREN ([phone])[address] DACROCYTES PRESENCE IN BLOOD BY LIGHT MICROSCOPY Slight Abnormal (none) [facility] Comment on above: Performed By: #### L GH8841, VHH9104 ####Director Consumer: SHAHLA WARREN ([phone])[address] [place] [address] [place] DIFFERENTIAL METHOD Manual differential performed Normal [facility] Comment on above: Result Comment: DARIO R COMMENTS:Differential performed on albumin slide. Performed By: #### L [id number], [id number] ####Director Consumer: SHAHLA WARREN ([phone])[facility])[address] [place] [address] EOSINOPHILS (10*3/UL) IN BLOOD BY MANUAL COUNT 0.1 10*3/uL Normal 0.0-0.5 [facility] Comment on above: Performed By: #### L [id number], [id number] ####Director Consumer: SHAHLA WARREN ([phone])[facility])[address] [place] [address] EOSINOPHILS TOTAL PER COUNTED LEUKOCYTES BY MANUAL COUNT 1 Normal 0-1 [facility] Comment on above: Performed By: #### L [id number], [id number] ####Director Consumer: SHAHLA WARREN ([phone])[facility])[address] [place] [address] [place] EOSINOPHILS/100 LEUKOCYTES IN BLOOD BY MANUAL COUNT 1 % Normal 0-6 [facility] Comment on above: Performed By: #### L [id number], ZKK3435 ####Director Consumer: SHAHLA WARREN ([phone])[facility])[address] [place] [address] [place] LEUKOCYTES (10*3/UL) NUCLEATED ERYTHROCYTE ADJUST 10.5 10*3/uL Normal 3.6-10.7 [facility] Comment on above: Performed By: #### L [id number], ELU6309 ####Director Consumer: SHAHLA WARREN ([phone])[facility])[address] [place] [address] [place] LYMPHOCYTES (10*3/UL) IN BLOOD BY MANUAL COUNT 0.8 10*3/uL Low 1.0-4.3 [facility] Comment on above: Performed By: #### L [id number], [id number] ####Director Consumer: SHAHLA WARREN ([phone])[facility])[address] [place] [address] [place] LYMPHOCYTES TOTAL PER COUNTED LEUKOCYTES BY MANUAL COUNT 8 Normal [facility] Comment on above: Performed By: #### L [id number], [id number] ####Director Consumer: SHAHLA WARREN ([phone])[facility])[address] [place] [address] [place] LYMPHOCYTES/100 LEUKOCYTES IN BLOOD BY MANUAL COUNT 8 % Low 15-45 [facility] Comment on above: Performed By: #### L [id number], HWP8881 ####Director Consumer: SHAHLA WARREN ([phone])[facility])[address] [place] [address] [place] METAMYELOCYTES (10*3/UL) IN BLOOD BY MANUAL COUNT 0.2 10*3/uL High <=0.0 [facility] Comment on above: Performed By: #### Prem [id number], [id number] ####Director Consumer: SHAHLA WARREN ([phone])[facility])[address] [place] [address] [place] METAMYELOCYTES TOTAL PER COUNTED LEUKOCYTES BY MANUAL COUNT 2 Normal [facility] Comment on above: Performed By: #### L [id number], [id number] ####Director Consumer: SHAHLA WARREN ([phone])[facility])[address] [place] [address] [place] METAMYELOCYTES/100 LEUKOCYTES IN BLOOD BY MANUAL COUNT 2 % High <=0 [facility] Comment on above: Performed By: #### L [id number], [id number] ####Director Consumer: SHAHLA WARREN ([phone])[facility])[address] [place] [address] [place] MONOCYTES (10*3/UL) IN BLOOD BY MANUAL COUNT 0.6 10*3/uL Normal 0.0-0.9 [facility] Comment on above: Performed By: #### L [id number], [id number] ####Director Consumer: SHAHLA WARREN ([phone])[facility])[address] [place] [address] [place] MONOCYTES TOTAL PER COUNTED LEUKOCYTES BY MANUAL COUNT 6 Normal [facility] Comment on above: Performed By: #### L [id number], [id number] ####Director Consumer: SHAHLA WARREN ([phone])[facility])[address] [place] [address] [place] MONOCYTES/100 LEUKOCYTES IN BLOOD BY MANUAL COUNT 6 % Normal 5-13 [facility] Comment on above: Performed By: #### L [id number], [id number] ####Director Consumer: SHAHLA WARREN ([phone])[facility])[address] [place] [address] [place] NEUTROPHILS (SEGS+BANDS) (10*3/UL) BY MANUAL COUNT 8.7 10*3/uL High 1.8-7.0 [facility] Comment on above: Performed By: #### Prem [id number], [id number] ####Director Consumer: SHAHLA WARREN ([phone])[facility])[address] [place] [address] NEUTROPHILS BAND FORM/100 LEUKOCYTES IN BLOOD BY MANUAL COUNT 23 % High <=0 [facility] Comment on above: Performed By: #### Prem [id number], [id number] ####Director Consumer: SHAHLA WARREN ([phone])[facility])[address] [place] [address] NEUTROPHILS TOTAL PER COUNTED LEUKOCYTES BY MANUAL COUNT 60 Normal [facility] Comment on above: Performed By: #### Prem [id number], [id number] ####Director Consumer: SHAHLA WARREN ([phone])[facility])[address] [place] [address] [place] PLATELET MORPHOLOGY IN BLOOD Normal Normal [facility] Comment on above: Performed By: #### L [id number], [id number] ####Director Consumer: SHAHLA WARREN ([phone])[facility])[address] [place] [address] [place] POIKILOCYTOSIS (PRESENCE) IN BLOOD BY LIGHT MICROSCOPY Slight Abnormal (none) [facility] Comment on above: Performed By: #### L [id number], [id number] ####Director Consumer: SHAHLA WARREN ([phone])[facility])[address] [place] [address] SEGEMENTED NEUTROPHILS/100 LEUKOCYTES BY MANUAL COUNT 60 % Normal 38-82 [facility] Comment on above: Performed By: #### L [id number], [id number] ####Director Consumer: SHAHLA WARREN ([phone])[facility])[address] [place] [address] SEGMENTED NEUTROPHILS (10*3/UL)IN BLOOD BY MANUAL COUNT 8.7 10*3/uL High 1.8-7.5 [facility] Comment on above: Performed By: #### L [id number], [id number] ####Director Consumer: SHAHLA WARREN ([phone])[facility])[address] [place] [address] SMUDGE CELLS PRESENCE IN BLOOD BY LIGHT MICROSCOPY Present Abnormal (none) [facility] Comment on above: Performed By: #### L [id number], [id number] ####Director Consumer: SHAHLA WARREN ([phone])[facility])[address] [place] [address] OSMOLALITY, URINEon 12-28-19 25 OSMOLALITY, URINE 903 mOsm/kg Normal 300-1000 [facility] Comment on above: Performed By: #### L AB444, VRJ566 ####Director Consumer: SHAHLA WARREN ([phone])[facility])[address] [place] [address] PHOSPHORUSon 12-27-2024 Phosphate [Mass/Vol] 3.2 mg/dL Normal 2.3-4.7 [facility] Comment on above: Performed By: #### L AB62, LAB17, XIT413, HZZ925 ####Director Consumer: SHAHLA WARREN ([phone])[facility])[address] [place] [address] Progress Noteon 12-27-2024 Progress Note Normal [facility] Progress Note Normal [facility] Progress Note Normal [facility] Progress Note Normal [facility] Progress Note Normal [facility] Progress Note Normal [facility] SODIUM, URINE, RANDOMon CREATININE, URINE 157.1 mg/dL Normal 63.0-166.0 [facility] Comment on above: Performed By: #### L AB444, [id number] ####Director Consumer: SHAHLA WARREN ([phone])[facility])[address] [place] [address] Sodium (U) [Moles/Vol] 64 mmol/L Normal [facility] Comment on above: Performed By: #### L AB444, QCU659 ####Director Consumer: SHAHLA WARREN ([phone])[facility])[address] [place] [address] SODIUM, URINE, FRACTIONAL EXCRETION 0.4 Normal [facility] Comment on above: Performed By: #### L AB444, [id number] ####Director Consumer: SHAHLA WARREN ([phone])[facility])[address] [place] [address] SODIUM, URINE, TUBULAR REABSORPTION 1.0 Normal [facility] Comment on above: Performed By: #### L AB444, [id number] ####Director Consumer: SHAHLA WARREN ([phone])[facility])[address] [place] [address] XR CHEST 1 VIEWon 12-27-2024 XR CHEST 1 VIEW Normal [facility] [id number] 12-26-2024 [id number] Normal [facility] BLOOD GAS ARTERIALon 025 AMOUNT OF OXYGEN 40% 12 peep Normal [facility] Comment on above: Performed By: #### L AB76 ####Director Consumer: SHAHLA WARREN ([phone])[facility])[address] [place] [address] Base excess Calc (Bld) [Moles/Vol] 5.7 mmol/L High -3.0-3.0 [facility] Comment on above: Performed By: #### L AB76 ####Director Consumer: SHAHLA WARREN ([phone])[facility])[address] [place] [address] CO2 [Moles/Vol] 30.5 mmol/L High 23.0-27.0 [facility] Comment on above: Performed By: #### L AB76 ####Director Consumer: SHAHLA WARREN ([phone])[facility])[address] [place] [address] HCO3 (Bld) [Moles/Vol] 29.3 mmol/L High 21.0-25.0 [facility] Comment on above: Performed By: #### L AB76 ####Director Consumer: SHAHLA WARREN ([phone])[facility])[address] [place] [address] Hemoglobin (Bld) [Mass/Vol] 10.2 g/dL Normal Screen only [facility] Comment on above: Performed By: #### L AB76 ####Director Consumer: SHAHLA WARREN ([phone])[facility])[address] [place] [address] OXYGEN SATURATION (%) IN ARTERIAL BLOOD 97.8 % Normal 95.0-100.0 [facility] Comment on above: Performed By: #### L AB76 ####Director Consumer: SHAHLA WARREN ([phone])[facility] ([facility])[address] [place] [address] PCO2 ARTERIAL 38.7 mm Hg Normal >35.0-<45.0 [facility] Comment on above: Performed By: #### L [id number] ####Director Consumer: SHAHLA WARREN ([phone])[facility])[address] [place] [address] PH ARTERIAL 7.497 High 7.350-7.450 [facility] Comment on above: Performed By: #### L [id number] ####Director Consumer: SHAHLA WARREN ([phone])[facility])[address] [place] [address] PO2 ARTERIAL 137.8 mm Hg High 80.0-100.0 [facility] Comment on above: Performed By: #### L [id number] ####Director Consumer: SHAHLA WARREN ([phone])[facility] ([facility])[address] [place] [address] SOURCE OF OXYGEN Ventilator Normal [facility] Comment on above: Performed By: #### L [id number] ####Director Consumer: SHAHLA WARREN ([phone])[facility] ([facility])[address] [place] [address] AMOUNT OF OXYGEN 40% Normal [facility] Comment on above: Result Comment: 40% FiO2 12 PEEP Performed By: #### L [id number] ####Director Consumer: SHAHLA WARREN ([phone])[facility] [facility] [place] [address] Base excess Calc (Bld) [Moles/Vol] 3.5 mmol/L High -3.0-3.0 [facility] Comment on above: Performed By: #### L [id number] ####Director Consumer: SHAHLA WARREN ([phone])[facility] ([facility])[address] [place] [address] CO2 [Moles/Vol] 29.2 mmol/L High 23.0-27.0 [facility] Comment on above: Performed By: #### L [id number] ####Director Consumer: SHAHLA WARREN ([phone])[facility] ([facility])[address] [place] [address] [place] HCO3 (Bld) [Moles/Vol] 28.0 mmol/L High 21.0-25.0 [facility] Comment on above: Performed By: #### L [id number] ####Director Consumer: SHAHLA WARREN ([phone])[facility] ([facility])[address] [place] [address] Hemoglobin (Bld) [Mass/Vol] 11.6 g/dL Normal Screen only [facility] Comment on above: Performed By: #### L [id number] ####Director Consumer: SHAHLA WARREN ([phone])[facility] ([facility])[address] [place] [address] OXYGEN SATURATION (%) IN ARTERIAL BLOOD 95.7 % Normal 95.0-100.0 [facility] Comment on above: Performed By: #### L [id number] ####Director Consumer: SHAHLA WARREN ([phone])[facility] ([facility])[address] [place] [address] PCO2 ARTERIAL 42.0 mm Hg Normal >35.0-<45.0 [facility] Comment on above: Performed By: #### L [id number] ####Director Consumer: SHAHLA WARREN ([phone])[facility] ([facility])[address] [place] [address] PH ARTERIAL 7.441 Normal 7.350-7.450 [facility] Comment on above: Performed By: #### L AB76 ####Director Consumer: SHAHLA WARREN ([phone])[facility] ([facility])[address] [place] [address] PO2 ARTERIAL 90.7 mm Hg Normal 80.0-100.0 [facility] Comment on above: Performed By: #### L AB76 ####Director Consumer: SHAHLA WARREN ([phone])[facility])[address] [place] [address] SOURCE OF OXYGEN Ventilator Normal [facility] Comment on above: Performed By: #### L AB76 ####Director Consumer: SHAHLA WARREN ([phone])[facility] ([facility])[address] [place] [address] BLOOD GAS, VENOUSon 12-27-19 25 AMOUNT OF OXYGEN Normal [facility] Comment on above: Result Comment: DARIO Wylie COMMENTS:Assessment of oxygenation is best done with an arterial blood gas determination. Reference ranges for pO2, bicarbonate, and base excess are for mixed venous blood. Specimens drawn from a peripheral vein will often have higher values. Performed By: #### L AB79 ####Director Consumer: SHAHLA [phone])[facility] [place] [address] Base excess Calc (BldV) [Moles/Vol] 8.1 mmol/L High -3.0-3.0 [facility] Comment on above: Performed By: #### L AB79 ####Director Consumer: SHAHLA WARREN ([phone])[facility] ([facility])[address] [place] [address] [place] CO2 [Moles/Vol] 34.3 mmol/L High 24.0-28.0 [facility] Comment on above: Performed By: #### L AB79 ####Director Consumer: SHAHLA WARREN ([phone])[facility] ([facility])[address] [place] [address] HCO3 (Bld) [Moles/Vol] 32.9 mmol/L High 23.0-27.0 [facility] Comment on above: Performed By: #### L AB79 ####Director Consumer: SHAHLA WARREN ([phone])[facility] ([facility])[address] [place] [address] Hemoglobin (Bld) [Mass/Vol] 10.1 g/dL Normal Screen only [facility] Comment on above: Performed By: #### L AB79 ####Director Consumer: SHAHLA WARREN ([phone])[facility] ([facility])[address] [place] [address] OXYGEN (MM HG) IN VENOUS BLOOD 33.6 mm Hg Normal [facility] Comment on above: Performed By: #### L AB79 ####Director Consumer: SHAHLA WARREN ([phone])[facility])[address] [place] [address] OXYGEN SATURATION (%) IN VENOUS BLOOD 58.7 % Normal [facility] Comment on above: Performed By: #### L AB79 ####Director Consumer: SHAHLA WARREN ([phone])[facility] ([facility])[address] [place] [address] [place] PCO2, ANDREW 47.2 mm Hg Normal 40.0-55.0 [facility] Comment on above: Performed By: #### L AB79 ####Director Consumer: SHAHLA WARREN ([phone])[facility])[address] [place] [address] PH VENOUS 7.461 High 7.330-7.430 [facility] Comment on above: Performed By: #### L AB79 ####Director Consumer: SHAHLA WARREN ([phone])[facility])[address] [place] [address] SOURCE OF OXYGEN Ventilator Normal [facility] Comment on above: Performed By: #### L AB79 ####Director Consumer: SHAHLA WARREN ([phone])[facility])[address] [place] [address] CALCIUM, IONIZEDon CALCIUM IONIZED 3.70 mg/dL Low 4.30-5.20 [facility] Comment on above: Performed By: #### L AB54 ####Director Consumer: SHAHLA WARREN ([phone])[facility])[address] [place] [address] PH, IONIZED CALCIUM 7.52 High 7.31-7.46 [facility] Comment on above: Performed By: #### L AB54 ####Director Consumer: SHAHLA WARREN ([phone])[facility])[address] [place] [address] CBC WITH AUTO DIFFERENTIALon 12-26-2024 Erythrocyte distribution width (RBC) [Ratio] 13.0 % Normal 11.5-15.0 [facility] Comment on above: Performed By: #### L [id number], [id number] ####Director Consumer: SHAHLA WARREN ([phone])[facility])[address] [place] [address] Hematocrit (Bld) [Volume fraction] 29.8 % Low 40.0-52.0 [facility] Comment on above: Performed By: #### L [id number], [id number] ####Director Consumer: SHAHLA WARREN ([phone])[facility] ([facility])[address] [place] [address] Hemoglobin (Bld) [Mass/Vol] 11.0 g/dL Low 13.0-18.0 [facility] Comment on above: Performed By: #### L [id number], [id number] ####Director Consumer: SHAHLA WARREN ([phone])[facility] ([facility])[address] [place] [address] MCH (RBC) [Entitic mass] 30.6 pg Normal 26.0-34.0 [facility] Comment on above: Performed By: #### Prem [id number], [id number] ####Director Consumer: SHAHLA WARREN ([phone])[facility])[address] [place] [address] MCHC 36.9 % High 30.5-36.0 [facility] Comment on above: Performed By: #### Prem [id number], [id number] ####Director Consumer: SHAHLA WARREN ([phone])[facility] ([facility])[address] [place] [address] MCV (RBC) [Entitic vol] 83.0 fL Normal 77.0-99.0 [facility] Comment on above: Performed By: #### Prem [id number], [id number] ####Director Consumer: SHAHLA WARREN ([phone])[facility] ([facility])[address] [place] [address] NRBC 0.3 /100 WBCs Normal 0.0-2.0 [facility] Comment on above: Performed By: #### L [id number], [id number] ####Director Consumer: SHAHLA WARREN ([phone])[facility])[address] [place] [address] Platelet mean volume (Bld) [Entitic vol] 10.1 fL Normal 9.0-12.7 [facility] Comment on above: Performed By: #### L [id number], [id number] ####Director Consumer: SHAHLA WARREN ([phone])[facility] ([facility])[address] [place] [address] Platelets (Bld) [#/Vol] 117 10*3/uL Low 140-440 [facility] Comment on above: Performed By: #### L [id number], [id number] ####Director Consumer: SHAHLA WARREN ([phone])[facility] ([facility])[address] [place] [address] RBC (Bld) [#/Vol] 3.59 10*6/uL Low 4.40-5.90 [facility] Comment on above: Performed By: #### L [id number], [id number] ####Director Consumer: SHAHLA WARREN ([phone])[facility] ([facility])[address] [place] [address] WBC (Bld) [#/Vol] 8.8 10*3/uL Normal 3.6-10.7 [facility] Comment on above: Performed By: #### L [id number], [id number] ####Director Consumer: SHAHLA WARREN ([phone])[facility] ([facility])[address] [place], [place] [address]n 12-26-2024 CK [Catalytic activity/Vol] 7535 U/L High 30-185 [facility] Comment on above: Performed By: #### L AB62, LAB17 ####Director Consumer: SHAHLA WARREN ([phone])[facility])[address] [place] [address] CK [Catalytic activity/Vol] 9201 U/L High 30-185 [facility] Comment on above: Performed By: #### L AB62 ####Director Consumer: SHAHLA WARREN ([phone])[facility])[address] [place] [address] COMPREHENSIVE METABOLIC PANE Clifford 12-26-2024 Albumin [Mass/Vol] 2.1 g/dL Low 3.5-5.0 [facility] Comment on above: Performed By: #### L AB62, LAB17 ####Director Consumer: SHAHLA WARREN ([phone])[facility] ([facility])[address] [place] [address] [place] ALP [Catalytic activity/Vol] 27 U/L Low 40-150 [facility] Comment on above: Performed By: #### L ALYX, LAB17 ####Director Consumer: SHAHLA WARREN ([phone])[facility] ([facility])[address] [place] [address] [place] ALT [Catalytic activity/Vol] 195 U/L High <40 [facility] Comment on above: Performed By: #### L ALYX, LAB17 ####Director Consumer: SHAHLA WARREN ([phone])[facility] ([facility])[address] [place] [address] Anion gap [Moles/Vol] 12 mmol/L Normal 3-13 [facility] Comment on above: Performed By: #### Prem WISDOM, LAB17 ####Director Consumer: SHAHLA WARREN ([phone])[facility] ([facility])[address] [place] [address] [place] AST [Catalytic activity/Vol] 241 U/L High <34 [facility] Comment on above: Performed By: #### L ALYX, LAB17 ####Director Consumer: SHAHLA WARREN ([phone])[facility] ([facility])[address] [place] [address] [place] Bilirubin [Mass/Vol] 0.4 mg/dL Normal <1.2 [facility] Comment on above: Performed By: #### L ALYX, LAB17 ####Director Consumer: SHAHLA WARREN ([phone])[facility])[address] [place] [address] [place] Calcium [Mass/Vol] 8.3 mg/dL Low 8.4-10.2 [facility] Comment on above: Performed By: #### L ALYX, LAB17 ####Director Consumer: SHAHLA WARREN ([phone])[facility] ([facility])[address] [place] [address] [place] Chloride [Moles/Vol] 97 mmol/L Low 98-107 [facility] Comment on above: Performed By: #### Prem WISDOM, LAB17 ####Director Consumer: SHAHLA WARREN ([phone])[facility])[address] [place] [address] CO2 [Moles/Vol] 24 mmol/L Normal 22-29 [facility] Comment on above: Performed By: #### Prem WISDOM, LAB17 ####Director Consumer: SHAHLA WARREN ([phone])[facility])[address] [place] [address] Creatinine [Mass/Vol] 1.39 mg/dL High 0.72-1.25 [facility] Comment on above: Performed By: #### Prem WISDOM, LAB17 ####Director Consumer: SHAHLA WARREN ([phone])[facility])[address] [place] [address] GLOMERULAR FILTRATION RATE ML/MIN/1.73 SQ M.PREDICTED 67.8 mL/min/1.73m*2 Normal >60.0 [facility] Comment on above: Result Comment: Calc ulation based on the Chronic Kidney Disease Epidemiology Collaboration (CKD-EPI) equation refit without adjustment for race Performed By: #### Prem WISDOM, LAB17 ####Director Consumer: SHAHLA WARREN ([phone])[facility])[address] [place] [address] Glucose [Mass/Vol] 185 mg/dL High 74-100 [facility] Comment on above: Performed By: #### Prem WISDOM, LAB17 ####Director Consumer: SHAHLA WARREN ([phone])[facility])[address] [place] [address] Potassium [Moles/Vol] 3.7 mmol/L Normal 3.5-5.1 [facility] Comment on above: Result Comment: [facility] potassium values may be up to 0.5 mmol/L lower than serum values. Performed By: #### Prem WISDOM, LAB17 ####Director Consumer: SHAHLA WARREN ([phone])[facility] [place] [address] Protein [Mass/Vol] 4.7 g/dL Low 6.4-8.3 [facility] Comment on above: Performed By: #### L AB62, LAB17 ####Director Consumer: SHAHLA WARREN ([phone])[facility] ([facility])[address] [place] [address] Sodium [Moles/Vol] 133 mmol/L Low 136-145 [facility] Comment on above: Performed By: #### L AB62, LAB17 ####Director Consumer: SHAHLA WARREN ([phone])[facility])[address] [place] [address] Urea nitrogen [Mass/Vol] 26 mg/dL High 8-21 [facility] Comment on above: Performed By: #### L AB62, LAB17 ####Director Consumer: SHAHLA WARREN ([phone])[facility])[address] [place] [address] Albumin [Mass/Vol] 2.3 g/dL Low 3.5-5.0 [facility] Comment on above: Performed By: #### L AB17 ####Director Consumer: SHAHLA WARREN ([phone])[facility])[address] [place] [address] ALP [Catalytic activity/Vol] 25 U/L Low 40-150 [facility] Comment on above: Performed By: #### L AB17 ####Director Consumer: SHAHLA WARREN ([phone])[facility] ([facility])[address] [place] [address] [place] ALT [Catalytic activity/Vol] 211 U/L High <40 [facility] Comment on above: Performed By: #### L AB17 ####Director Consumer: SHAHLA WARREN ([phone])[facility])[address] [place] [address] Anion gap [Moles/Vol] 13 mmol/L Normal 3-13 [facility] Comment on above: Performed By: #### L AB17 ####Director Consumer: SHAHLA WARREN ([phone])[facility] ([facility])[address] [place] [address] [place] AST [Catalytic activity/Vol] 273 U/L High <34 [facility] Comment on above: Performed By: #### L AB17 ####Director Consumer: SHAHLA WARREN ([phone])[facility])[address] [place] [address] Bilirubin [Mass/Vol] 0.4 mg/dL Normal <1.2 [facility] Comment on above: Performed By: #### L AB17 ####Director Consumer: SHAHLA WARREN ([phone])[facility])[address] [place] [address] Calcium [Mass/Vol] 7.8 mg/dL Low 8.4-10.2 [facility] Comment on above: Performed By: #### L AB17 ####Director Consumer: SHAHLA WARREN ([phone])[facility] [place] [address] [place] Chloride [Moles/Vol] 96 mmol/L Low 98-107 [facility] Comment on above: Performed By: #### L AB17 ####Director Consumer: SHAHLA WARREN ([phone])[facility])[address] [place] [address] [place] CO2 [Moles/Vol] 25 mmol/L Normal 22-29 [facility] Comment on above: Performed By: #### L AB17 ####Director Consumer: SHAHLA WARREN ([phone])[facility] ([facility])[address] [place] [address] [place] Creatinine [Mass/Vol] 1.49 mg/dL High 0.72-1.25 [facility] Comment on above: Performed By: #### L AB17 ####Director Consumer: SHAHLA WARREN ([phone])[facility] ([facility])[address] [place] [address] [place] GLOMERULAR FILTRATION RATE ML/MIN/1.73 SQ M.PREDICTED 62.4 mL/min/1.73m*2 Normal >60.0 [facility] Comment on above: Result Comment: Calc ulation based on the Chronic Kidney Disease Epidemiology Collaboration (CKD-EPI) equation refit without adjustment for race Performed By: #### L AB17 ####Director Consumer: SHAHLA WARREN ([phone])[facility])[address] [place] [address] Glucose [Mass/Vol] 223 mg/dL High 74-100 [facility] Comment on above: Performed By: #### L AB17 ####Director Consumer: SHAHLA WARREN ([phone])[facility])[address] [place] [address] Potassium [Moles/Vol] 3.9 mmol/L Normal 3.5-5.1 [facility] Comment on above: Result Comment: [facility] potassium values may be up to 0.5 mmol/L lower than serum values. Performed By: #### L AB17 ####Director Consumer: SHAHLA WARREN ([phone])[facility])[address] [place] [address] Protein [Mass/Vol] 4.9 g/dL Low 6.4-8.3 [facility] Comment on above: Performed By: #### L AB17 ####Director Consumer: SHAHLA WARREN ([phone])[facility])[address] [place] [address] [place] Sodium [Moles/Vol] 134 mmol/L Low 136-145 [facility] Comment on above: Performed By: #### L AB17 ####Director Consumer: SHAHLA WARREN ([phone])[facility])[address] [place] [address] [place] Urea nitrogen [Mass/Vol] 26 mg/dL High 8-21 [facility] Comment on above: Performed By: #### L AB17 ####Director Consumer: SHAHLA WARREN ([phone])[facility])[address] [place] [address] [place] Albumin [Mass/Vol] 2.4 g/dL Low 3.5-5.0 [facility] Comment on above: Performed By: #### L AB17, [id number], [id number] ####Director Consumer: SHAHLA WARREN ([phone])[facility])[address] [place] [address] ALP [Catalytic activity/Vol] 25 U/L Low 40-150 [facility] Comment on above: Performed By: #### L AB17, [id number], [id number] ####Director Consumer: SHAHLA WARREN ([phone])[facility] ([facility])[address] [place] [address] ALT [Catalytic activity/Vol] 235 U/L High <40 [facility] Comment on above: Performed By: #### Prem AB17, [id number], [id number] ####Director Consumer: SHAHLA WARREN ([phone])[facility] ([facility])[address] [place] [address] Anion gap [Moles/Vol] 12 mmol/L Normal 3-13 [facility] Comment on above: Performed By: #### L AB17, [id number], [id number] ####Director Consumer: SHAHLA WARREN ([phone])[facility] ([facility])[address] [place] [address] AST [Catalytic activity/Vol] 319 U/L High <34 [facility] Comment on above: Performed By: #### L AB17, [id number], [id number] ####Director Consumer: SHAHLA WARREN ([phone])[facility])[address] [place] [address] Bilirubin [Mass/Vol] 0.4 mg/dL Normal <1.2 [facility] Comment on above: Performed By: #### L AB17, [id number], [id number] ####Director Consumer: SHAHLA WARREN ([phone])[facility])[address] [place] [address] Calcium [Mass/Vol] 8.0 mg/dL Low 8.4-10.2 [facility] Comment on above: Performed By: #### L AB17, [id number], [id number] ####Director Consumer: SHAHLA WARREN ([phone])[facility] ([facility])[address] [place] [address] [place] Chloride [Moles/Vol] 98 mmol/L Normal 98-107 [facility] Comment on above: Performed By: #### L AB17, [id number], [id number] ####Director Consumer: SHAHLA WARREN ([phone])[facility] [place] [address] [place] CO2 [Moles/Vol] 23 mmol/L Normal 22-29 [facility] Comment on above: Performed By: #### L AB17, [id number], [id number] ####Director Consumer: SHAHLA WARREN ([phone])[facility] ([facility])[address] [place] [address] Creatinine [Mass/Vol] 1.63 mg/dL High 0.72-1.25 [facility] Comment on above: Performed By: #### L AB17, [id number], [id number] ####Director Consumer: SHAHLA WARREN ([phone])[facility] ([facility])[address] [place] [address] GLOMERULAR FILTRATION RATE ML/MIN/1.73 SQ M.PREDICTED 56.0 mL/min/1.73m*2 Low >60.0 [facility] Comment on above: Result Comment: Calc ulation based on the Chronic Kidney Disease Epidemiology Collaboration (CKD-EPI) equation refit without adjustment for race Performed By: #### L AB17, [id number], [id number] ####Director Consumer: SHAHLA WARREN ([phone])[facility] ([facility])[address] [place] [address] [place] Glucose [Mass/Vol] 202 mg/dL High 74-100 [facility] Comment on above: Performed By: #### L AB17, [id number], [id number] ####Director Consumer: SHAHLA WARREN ([phone])[facility])[address] [place] [address] [place] Potassium [Moles/Vol] 4.3 mmol/L Normal 3.5-5.1 [facility] Comment on above: Result Comment: [facility] potassium values may be up to 0.5 mmol/L lower than serum values. Performed By: #### L AB17, [id number], [id number] ####Director Consumer: SHAHLA WARREN ([phone])[facility])[address] [place] [address] Protein [Mass/Vol] 5.0 g/dL Low 6.4-8.3 [facility] Comment on above: Performed By: #### L AB17, [id number], [id number] ####Director Consumer: SHAHLA WARREN ([phone])[address] Sodium [Moles/Vol] 133 mmol/L Low 136-145 [facility] Comment on above: Performed By: #### L AB17, [id number], [id number] ####Director Consumer: SHAHLA WARREN ([phone])[address] Urea nitrogen [Mass/Vol] 27 mg/dL High 8-21 [facility] Comment on above: Performed By: #### L AB17, [id number], [id number] ####Director Consumer: SHAHLA WARREN ([phone])[address] Consulton 12-26-2024 Consult [facility] Consult Normal [facility] ECG 12-LEADon 12-26-2024 ECG 12-LEAD IMPRESSION: Sinus rhythm Borderline T wave abnormalities Electronically Signed On 12-26-2024 16:01:37 EDT by Jamey Shah [facility] HEMOGLOBIN A1Con 12-26-2024 Glucose [Mass/Vol] 105 mg/dL Normal [facility] Comment on above: Result Comment: DARIO R COMMENTS:If not done within the last 3 [id number] values of 5.7-6.4 percent indicate an increased risk for developing diabetes mellitus. HbA1c values greater than or equal to 6.5 percent are diagnostic of diabetes mellitus. For diagnosis of diabetes in individuals without unequivocal hyperglycemia, results should be confirmed by repeat testing. Performed By: #### L [id number] ####Director Consumer: SHAHLA WARREN ([phone])[facility])[address] [place] [address] HEMOGLOBIN A1C 5.3 %HbA1C Normal <5.7 [facility] Comment on above: Result Comment: Norm al less than 5.7%Prediabetes 5.7% to 6.4%Diabetes 6.5% or higher--HgbA1C levels may not be accurate in patients who have renal disease, received recent blood transfusions, are anemic, or who have dyshemoglobinemia. Performed By: #### L [id number] ####Director Consumer: SHAHLA WRAREN ([phone])[facility])[address] [place] [address] MAGNESIUMon 12-26-2024 Magnesium [Mass/Vol] 2.3 mg/dL Normal 1.6-2.6 [facility] Comment on above: Result Comment: DARIO Wylie COMMENTS:Higher values can be expected in females during menses. Performed By: #### L [id number], [id number], [id number] ####Director Consumer: SHAHLA WARREN ([phone])[address] MANUAL DIFFERENTIALon 2024 BAND NEUTROPHILS TOTAL PER COUNTED LEUKOCYTES BY MANUAL COUNT 30 Normal [facility] Comment on above: Performed By: #### L [id number], [id number] ####Director Consumer: SHAHLA WARREN ([phone])[address] BANDS 2.6 10*3/uL High <=0.0 [facility] Comment on above: Performed By: #### L [id number], [id number] ####Director Consumer: SHAHLA WARREN ([phone])[address] CELLS COUNTED TOTAL (#) IN BLOOD 100 Normal [facility] Comment on above: Performed By: #### L [id number], [id number] ####Director Consumer: SHAHLA WARREN ([phone])[facility] ([facility])[address] [place] [address] DACROCYTES PRESENCE IN BLOOD BY LIGHT MICROSCOPY Moderate Abnormal (none) [facility] Comment on above: Performed By: #### L [id number], [id number] ####Director Consumer: SHAHLA WARREN ([phone])[facility])[address] [place] [address] DIFFERENTIAL METHOD Manual differential performed Normal [facility] Comment on above: Result Comment: DARIO Wylie COMMENTS:Differential performed on albumin slide Performed By: #### L [id number], [id number] ####Director Consumer: SHAHLA WARREN ([phone])[facility])[address] [place] [address] LEUKOCYTES (10*3/UL) NUCLEATED ERYTHROCYTE ADJUST 8.8 10*3/uL Normal 3.6-10.7 [facility] Comment on above: Performed By: #### L [id number], [id number] ####Director Consumer: SHAHLA WARREN ([phone])[facility])[address] [place] [address] LYMPHOCYTES (10*3/UL) IN BLOOD BY MANUAL COUNT 1.6 10*3/uL Normal 1.0-4.3 [facility] Comment on above: Performed By: #### L [id number], [id number] ####Director Consumer: SHAHLA WARREN ([phone])[facility])[address] [place] [address] LYMPHOCYTES TOTAL PER COUNTED LEUKOCYTES BY MANUAL COUNT 18 Normal [facility] Comment on above: Performed By: #### L [id number], [id number] ####Director Consumer: SHAHLA WARREN ([phone])[facility])[address] [place] [address] LYMPHOCYTES/100 LEUKOCYTES IN BLOOD BY MANUAL COUNT 18 % Normal 15-45 [facility] Comment on above: Performed By: #### L [id number], [id number] ####Director Consumer: SHAHLA WARREN ([phone])[facility] ([facility])[address] [place] [address] [place] METAMYELOCYTES (10*3/UL) IN BLOOD BY MANUAL COUNT 0.3 10*3/uL High <=0.0 [facility] Comment on above: Performed By: #### L [id number], [id number] ####Director Consumer: SHAHLA WARREN ([phone])[facility] ([facility])[address] [place] [address] [place] METAMYELOCYTES TOTAL PER COUNTED LEUKOCYTES BY MANUAL COUNT 3 Normal [facility] Comment on above: Performed By: #### L [id number], [id number] ####Director Consumer: SHAHLA WARREN ([phone])[facility] ([facility])[address] [place] [address] [place] METAMYELOCYTES/100 LEUKOCYTES IN BLOOD BY MANUAL COUNT 3 % High <=0 [facility] Comment on above: Performed By: #### L [id number], [id number] ####Director Consumer: SHAHLA WARREN ([phone])[facility])[address] [place] [address] [place] MONOCYTES (10*3/UL) IN BLOOD BY MANUAL COUNT 0.5 10*3/uL Normal 0.0-0.9 [facility] Comment on above: Performed By: #### L [id number], [id number] ####Director Consumer: SHAHLA WARREN ([phone])[facility])[address] [place] [address] [place] MONOCYTES TOTAL PER COUNTED LEUKOCYTES BY MANUAL COUNT 6 Normal [facility] Comment on above: Performed By: #### L [id number], [id number] ####Director Consumer: SHAHLA WARREN ([phone])[facility] ([facility])[address] [place] [address] [place] MONOCYTES/100 LEUKOCYTES IN BLOOD BY MANUAL COUNT 6 % Normal 5-13 [facility] Comment on above: Performed By: #### L [id number], [id number] ####Director Consumer: SHAHLA WARREN ([phone])[facility] ([facility])[address] [place], [place] [id number] [place] MYELOCYTES (10*3/UL) IN BLOOD BY MANUAL COUNT 0.2 10*3/uL High <=0.0 [facility] Comment on above: Performed By: #### L [id number], [id number] ####Director Consumer: SHAHLA WARREN ([phone])[facility])[address] [place] [address] [place] MYELOCYTES COUNTED BY MANUAL COUNT 2 Normal [facility] Comment on above: Performed By: #### L [id number], [id number] ####Director Consumer: SHAHLA WARREN ([phone])[facility] ([facility])[address] [place] [address] [place] MYELOCYTES/100 LEUKOCYTES IN BLOOD BY MANUAL COUNT 2 % High <=0 [facility] Comment on above: Performed By: #### Prem [id number], [id number] ####Director Consumer: SHAHLA WARREN ([phone])[facility] ([facility])[address] [place] [address] [place] NEUTROPHILS (SEGS+BANDS) (10*3/UL) BY MANUAL COUNT 6.2 10*3/uL Normal 1.8-7.0 [facility] Comment on above: Performed By: #### L [id number], [id number] ####Director Consumer: SHAHLA WARREN ([phone])[facility] ([facility])[address] [place] [address] [place] NEUTROPHILS BAND FORM/100 LEUKOCYTES IN BLOOD BY MANUAL COUNT 30 % High <=0 [facility] Comment on above: Performed By: #### L [id number], [id number] ####Director Consumer: SHAHLA WARREN ([phone])[facility] ([facility])[address] [place] [address] [place] NEUTROPHILS TOTAL PER COUNTED LEUKOCYTES BY MANUAL COUNT 41 Normal [facility] Comment on above: Performed By: #### L [id number], [id number] ####Director Consumer: SHAHLA WARREN ([phone])[facility] ([facility])[address] [place] [address] [place] PLATELET MORPHOLOGY IN BLOOD Normal Normal [facility] Comment on above: Performed By: #### L [id number], [id number] ####Director Consumer: SHAHLA WARREN ([phone])[address] POIKILOCYTOSIS (PRESENCE) IN BLOOD BY LIGHT MICROSCOPY Moderate Abnormal (none) [facility] Comment on above: Performed By: #### L [id number], [id number] ####Director Consumer: SHAHLA WARREN ([phone])[facility])[address] [place] [address] SEGEMENTED NEUTROPHILS/100 LEUKOCYTES BY MANUAL COUNT 41 % Normal 38-82 [facility] Comment on above: Performed By: #### L [id number], [id number] ####Director Consumer: SHAHLA WARREN ([phone])[address] SEGMENTED NEUTROPHILS (10*3/UL)IN BLOOD BY MANUAL COUNT 6.2 10*3/uL Normal 1.8-7.5 [facility] Comment on above: Performed By: #### L [id number], [id number] ####Director Consumer: SHAHLA WARREN ([phone])[address] SMUDGE CELLS PRESENCE IN BLOOD BY LIGHT MICROSCOPY Present Abnormal (none) [facility] Comment on above: Performed By: #### L [id number], [id number] ####Director Consumer: SHAHLA WARREN ([phone])[facility])[address] [place] [address] PHOSPHORUSon 12-26-2024 Phosphate [Mass/Vol] 4.2 mg/dL Normal 2.3-4.7 [facility] Comment on above: Performed By: #### L AB17, [id number], [id number] ####Director Consumer: SHAHLA WARREN ([phone])[facility])[address] [place] [address] Progress Noteon 12-26-2024 Progress Note Vancomycin therapy has been discontinued by Dr. Maverick Miramontes on 12/26/24. Thank you for the consult. Pharmacy signing off for vancomycin dosing. Maria Luisa Peralta PharmD Date: 12/26/24 Time: 5:45 PM Normal [facility] Progress Note Pt supined Normal [facility] Progress Note Normal [facility] Progress Note Normal [facility] Progress Note PHYSICAL THERAPY [facility] Name/MRN: Chelsea Cole ([id number]) Date: 12/26/2024 PT orders received, chart review performed. Patient currently with strict bedrest orders. Will hold PT eval and await updated activity orders. Renetta Jesus, PT Normal [facility] Progress Note Normal [facility] Progress Note Normal [facility] VANCOMYCIN, AUC TIMED DOSING on 12-26-2024 VANCOMYCIN, AUC 14.4 ug/mL Normal [facility] Comment on above: Result Comment: DARIO Wylie COMMENTS:Please draw random level at least >2 hours after the end of the last vancomycin infusion, or 30-minutes before next infusion.Toxicity is seen at concentrations >80-100 ug/mLTherapeutic (Peak) range: 20-40Therapeutic (Trough) range: 5-10 Performed By: #### L [id number] ####Director Consumer: SHAHLA WARREN ([phone])[facility] ([facility])[address] [place] [address] [place] BETA HYDROXYBUTYRATEon 12-25 BETA HYDROXYBUTYRATE 1.8 mg/dL Normal <=2.8 [facility] Comment on above: Performed By: #### L AB62, [id number], [id number] ####Director Consumer: SHAHLA WARREN ([phone])[facility] ([facility])[address] [place] [address] BLOOD CULTUREon 12-25-2024 Bacteria identified Cx Nom (Bld) Normal [facility] Comment on above: Performed By: #### L [id number] ####Director Consumer: SHAHLA WARREN ([phone])[facility])[address] [place] [address] BLOOD GAS ARTERIALon 025 AMOUNT OF OXYGEN 50% Normal [facility] Comment on above: Result Comment: FiO2 50%, PEEP 12 Performed By: #### L [id number] ####Director Consumer: SHAHLA WARREN ([phone])[facility] ([facility])[address] [place] [address] Base excess Calc (Bld) [Moles/Vol] 1.4 mmol/L Normal -3.0-3.0 [facility] Comment on above: Performed By: #### L [id number] ####Director Consumer: SHAHLA WARREN ([phone])[facility] ([facility])[address] [place] [address] CO2 [Moles/Vol] 25.7 mmol/L Normal 23.0-27.0 [facility] Comment on above: Performed By: #### L [id number] ####Director Consumer: SHAHLA WARREN ([phone])[facility] ([facility])[address] [place] [address] HCO3 (Bld) [Moles/Vol] 24.7 mmol/L Normal 21.0-25.0 [facility] Comment on above: Performed By: #### L [id number] ####Director Consumer: SHAHLA WARREN ([phone])[facility] ([facility])[address] [place] [address] Hemoglobin (Bld) [Mass/Vol] 12.2 g/dL Normal Screen only [facility] Comment on above: Performed By: #### L [id number] ####Director Consumer: SHAHLA WARREN ([phone])[facility] ([facility])[address] [place] [address] OXYGEN SATURATION (%) IN ARTERIAL BLOOD 97.8 % Normal 95.0-100.0 [facility] Comment on above: Performed By: #### L [id number] ####Director Consumer: SHAHLA WARREN ([phone])[facility] ([facility])[address] [place] [address] PCO2 ARTERIAL 34.5 mm Hg Low >35.0-<45.0 [facility] Comment on above: Performed By: #### L [id number] ####Director Consumer: SHAHLA WARREN ([phone])[facility])[address] [place] [address] PH ARTERIAL 7.472 High 7.350-7.450 [facility] Comment on above: Performed By: #### L [id number] ####Director Consumer: SHAHLA WARREN ([phone])[facility])[address] [place] [address] PO2 ARTERIAL 136.2 mm Hg High 80.0-100.0 [facility] Comment on above: Performed By: #### L [id number] ####Director Consumer: SHAHLA WARREN ([phone])[facility])[address] [place] [address] SOURCE OF OXYGEN Ventilator Normal [facility] Comment on above: Performed By: #### L [id number] ####Director Consumer: SHAHLA WARREN ([phone])[facility])[address] [place] [address] AMOUNT OF OXYGEN 80% Normal [facility] Comment on above: Result Comment: FiO2 80%, PEEP 12 Performed By: #### L [id number] ####Director Consumer: SHAHLA WARREN ([phone])[facility])[address] [place] [address] Base excess Calc (Bld) [Moles/Vol] 4.8 mmol/L High -3.0-3.0 [facility] Comment on above: Performed By: #### L [id number] ####Director Consumer: SHAHLA WARREN ([phone])[facility] ([facility])[address] [place] [address] CO2 [Moles/Vol] 27.3 mmol/L High 23.0-27.0 [facility] Comment on above: Performed By: #### L [id number] ####Director Consumer: SHAHLA WARREN ([phone])[facility])[address] [place] [address] HCO3 (Bld) [Moles/Vol] 26.4 mmol/L High 21.0-25.0 [facility] Comment on above: Performed By: #### L [id number] ####Director Consumer: SHAHLA WARREN ([phone])[facility] ([facility])[address] [place] [address] Hemoglobin (Bld) [Mass/Vol] 12.5 g/dL Normal Screen only [facility] Comment on above: Performed By: #### L [id number] ####Director Consumer: SHAHLA WARREN ([phone])[facility] ([facility])[address] [place] [address] OXYGEN SATURATION (%) IN ARTERIAL BLOOD 99.0 % Normal 95.0-100.0 [facility] Comment on above: Performed By: #### L [id number] ####Director Consumer: SHAHLA WARREN ([phone])[facility] ([facility])[address] [place] [address] PCO2 ARTERIAL 29.8 mm Hg Low >35.0-<45.0 [facility] Comment on above: Performed By: #### L [id number] ####Director Consumer: SHAHLA WARREN ([phone])[facility] ([facility])[address] [place] [address] PH ARTERIAL 7.565 High 7.350-7.450 [facility] Comment on above: Performed By: #### L [id number] ####Director Consumer: SHAHLA WARREN ([phone])[facility] ([facility])[address] [place] [address] PO2 ARTERIAL 283.2 mm Hg High 80.0-100.0 [facility] Comment on above: Performed By: #### L [id number] ####Director Consumer: SHAHLA WARREN ([phone])[facility])[address] [place] [address] SOURCE OF OXYGEN Ventilator Normal [facility] Comment on above: Performed By: #### L [id number] ####Director Consumer: SHAHLA WARREN ([phone])[facility] [place] [address] AMOUNT OF OXYGEN 80% 12 peep Normal [facility] Comment on above: Performed By: #### L [id number] ####Director Consumer: SHAHLA WARREN ([phone])[facility])[address] [place] [address] Base excess Calc (Bld) [Moles/Vol] -0.6000 mmol/L Normal -3.0-3.0 [facility] Comment on above: Performed By: #### L [id number] ####Director Consumer: SHAHLA WARREN ([phone])[facility])[address] [place] [address] CO2 [Moles/Vol] 23.3 mmol/L Normal 23.0-27.0 [facility] Comment on above: Performed By: #### L [id number] ####Director Consumer: SHAHLA WARREN ([phone])[facility])[address] [place] [address] HCO3 (Bld) [Moles/Vol] 22.4 mmol/L Normal 21.0-25.0 [facility] Comment on above: Performed By: #### L [id number] ####Director Consumer: SHAHLA WARREN ([phone])[facility])[address] [place] [address] Hemoglobin (Bld) [Mass/Vol] 12.5 g/dL Normal Screen only [facility] Comment on above: Performed By: #### L [id number] ####Director Consumer: SHAHLA WARREN ([phone])[facility])[address] [place] [address] OXYGEN SATURATION (%) IN ARTERIAL BLOOD 98.4 % Normal 95.0-100.0 [facility] Comment on above: Performed By: #### L [id number] ####Director Consumer: SHAHLA WARREN ([phone])[facility])[address] [place] [address] PCO2 ARTERIAL 31.5 mm Hg Low >35.0-<45.0 [facility] Comment on above: Performed By: #### L [id number] ####Director Consumer: SHAHLA WARREN ([phone])[facility])[address] [place] [address] PH ARTERIAL 7.469 High 7.350-7.450 [facility] Comment on above: Performed By: #### L [id number] ####Director Consumer: SHAHLA WARREN ([phone])[facility])[address] [place] [address] PO2 ARTERIAL 206.2 mm Hg High 80.0-100.0 [facility] Comment on above: Performed By: #### L [id number] ####Director Consumer: SHAHLA WARREN ([phone])[facility])[address] [place] [address] SOURCE OF OXYGEN Ventilator Normal [facility] Comment on above: Performed By: #### L [id number] ####Director Consumer: SHAHLA WARREN ([phone])[facility])[address] [place] [address] AMOUNT OF OXYGEN 80% 12 peep Normal [facility] Comment on above: Performed By: #### L [id number] ####Director Consumer: SHAHLA WARREN ([phone])[facility])[address] [place] [address] Base excess Calc (Bld) [Moles/Vol] -2.7000 mmol/L Normal -3.0-3.0 [facility] Comment on above: Performed By: #### L [id number] ####Director Consumer: SHAHLA WARREN ([phone])[facility])[address] [place] [address] CO2 [Moles/Vol] 24.7 mmol/L Normal 23.0-27.0 [facility] Comment on above: Performed By: #### L [id number] ####Director Consumer: SHAHLA WARREN ([phone])[facility])[address] [place] [address] HCO3 (Bld) [Moles/Vol] 23.3 mmol/L Normal 21.0-25.0 [facility] Comment on above: Performed By: #### L [id number] ####Director Consumer: SHAHLA WARREN ([phone])[facility])[address] [place] [address] Hemoglobin (Bld) [Mass/Vol] 12.4 g/dL Normal Screen only [facility] Comment on above: Performed By: #### L [id number] ####Director Consumer: SHAHLA WARREN ([phone])[facility])[address] [place] [address] OXYGEN SATURATION (%) IN ARTERIAL BLOOD 88.3 % Low 95.0-100.0 [facility] Comment on above: Performed By: #### L [id number] ####Director Consumer: SHAHLA WARREN ([phone])[facility])[address] [place] [address] PCO2 ARTERIAL 45.3 mm Hg High >35.0-<45.0 [facility] Comment on above: Performed By: #### L [id number] ####Director Consumer: SHAHLA WARREN ([phone])[facility])[address] [place] [address] PH ARTERIAL 7.329 Low 7.350-7.450 [facility] Comment on above: Performed By: #### L [id number] ####Director Consumer: SHAHLA WARREN ([phone])[facility])[address] [place] [address] PO2 ARTERIAL 60.7 mm Hg Low 80.0-100.0 [facility] Comment on above: Performed By: #### L [id number] ####Director Consumer: SHAHLA WARREN ([phone])[facility])[address] [place] [address] SOURCE OF OXYGEN Ventilator Normal [facility] Comment on above: Performed By: #### L [id number] ####Director Consumer: SHAHLA WARREN ([phone])[facility] [place] [address] [place] AMOUNT OF OXYGEN 80 Normal [facility] Comment on above: Performed By: #### L [id number] ####Director Consumer: SHAHLA WARREN ([phone])[facility])[address] [place] [address] Base excess Calc (Bld) [Moles/Vol] -6.5000 mmol/L Low -3.0-3.0 [facility] Comment on above: Performed By: #### L [id number] ####Director Consumer: SHAHLA WARREN ([phone])[facility])[address] [place] [address] CO2 [Moles/Vol] 21.9 mmol/L Low 23.0-27.0 [facility] Comment on above: Performed By: #### L [id number] ####Director Consumer: SHAHLA WARREN ([phone])[facility])[address] [place] [address] HCO3 (Bld) [Moles/Vol] 20.5 mmol/L Low 21.0-25.0 [facility] Comment on above: Performed By: #### L [id number] ####Director Consumer: SHAHLA WARREN ([phone])[facility])[address] [place] [address] Hemoglobin (Bld) [Mass/Vol] 13.8 g/dL Normal Screen only [facility] Comment on above: Performed By: #### L [id number] ####Director Consumer: SHAHLA WARREN ([phone])[facility] ([facility])[address] [place] [address] [place] OXYGEN SATURATION (%) IN ARTERIAL BLOOD 87.0 % Low 95.0-100.0 [facility] Comment on above: Performed By: #### L [id number] ####Director Consumer: SHAHLA WARREN ([phone])[facility] ([facility])[address] [place] [address] PCO2 ARTERIAL 46.3 mm Hg High >35.0-<45.0 [facility] Comment on above: Performed By: #### L [id number] ####Director Consumer: SHAHLA WARREN ([phone])[facility] ([facility])[address] [place] [address] PH ARTERIAL 7.264 Low 7.350-7.450 [facility] Comment on above: Performed By: #### L AB76 ####Director Consumer: SHAHLA WARREN ([phone])[facility] ([facility])[address] [place] [address] PO2 ARTERIAL 57.6 mm Hg Low 80.0-100.0 [facility] Comment on above: Performed By: #### L AB76 ####Director Consumer: SHAHLA WARREN ([phone])[facility])[address] [place] [address] SOURCE OF OXYGEN Ventilator Normal [facility] Comment on above: Performed By: #### L AB76 ####Director Consumer: SHAHLA WARREN ([phone])[facility] ([facility])[address] [place] [address] CALCIUM, IONIZEDon CALCIUM IONIZED 4.20 mg/dL Low 4.30-5.20 [facility] Comment on above: Performed By: #### L AB54 ####Director Consumer: SHAHLA WARREN ([phone])[facility])[address] [place] [address] PH, IONIZED CALCIUM 7.33 Normal 7.31-7.46 [facility] Comment on above: Performed By: #### L AB54 ####Director Consumer: SHAHLA WARREN ([phone])[facility])[address] [place] [address] CBC WITH AUTO DIFFERENTIALon 12-25-2024 Erythrocyte distribution width (RBC) [Ratio] 12.7 % Normal 11.5-15.0 [facility] Comment on above: Performed By: #### L [id number], [id number] ####Director Consumer: SHAHLA WARREN ([phone])[facility] Hematocrit (Bld) [Volume fraction] 38.0 % Low 40.0-52.0 [facility] Comment on above: Performed By: #### L [id number], [id number] ####Director Consumer: SHAHLA WARREN ([phone])[address] Hemoglobin (Bld) [Mass/Vol] 13.2 g/dL Normal 13.0-18.0 [facility] Comment on above: Performed By: #### L [id number], [id number] ####Director Consumer: SHAHLA WARREN ([phone])[address] MCH (RBC) [Entitic mass] 29.9 pg Normal 26.0-34.0 [facility] Comment on above: Performed By: #### L [id number], [id number] ####Director Consumer: SHAHLA WARREN ([phone])[address] MCHC 34.7 % Normal 30.5-36.0 [facility] Comment on above: Performed By: #### L [id number], [id number] ####Director Consumer: SHAHLA WARREN ([phone])[address] MCV (RBC) [Entitic vol] 86.2 fL Normal 77.0-99.0 [facility] Comment on above: Performed By: #### L [id number], [id number] ####Director Consumer: SHAHLA WARREN ([phone])[address] Platelet mean volume (Bld) [Entitic vol] 9.1 fL Normal 9.0-12.7 [facility] Comment on above: Performed By: #### L [id number], [id number] ####Director Consumer: SHAHLA [phone])[address] [place] [address] [place] Platelets (Bld) [#/Vol] 165 10*3/uL Normal 140-440 [facility] Comment on above: Performed By: #### L [id number], [id number] ####Director Consumer: SHAHLA WARREN ([phone])[facility] ([facility])[address] [place] [address] RBC (Bld) [#/Vol] 4.41 10*6/uL Normal 4.40-5.90 [facility] Comment on above: Performed By: #### L [id number], [id number] ####Director Consumer: SHAHLA WARRNE ([phone])[facility] ([facility])[address] [place] [address] WBC (Bld) [#/Vol] 3.3 10*3/uL Low 3.6-10.7 [facility] Comment on above: Performed By: #### L [id number], [id number] ####Director Consumer: SHAHLA WARREN ([phone])[facility] ([facility])[address] [place] [address] 12-25-2024 CK [Catalytic activity/Vol] 73447 U/L High 30-185 [facility] Comment on above: Performed By: #### L AB62, LAB17, [id number] ####Director Consumer: SHAHLA WARREN ([phone])[facility] ([facility])[address] [place] [address] CK [Catalytic activity/Vol] 65742 U/L High 30-185 [facility] Comment on above: Performed By: #### L AB17, LAB62 ####Director Consumer: SHAHLA WARREN ([phone])[facility])[address] [place] [address] CK [Catalytic activity/Vol] 54369 U/L High 30-185 [facility] Comment on above: Performed By: #### L AB103, [id number], LAB62, LAB17 ####Director Consumer: SHAHLA WARREN ([phone])[facility] ([facility])[address] [place] [address] CK [Catalytic activity/Vol] 04486 U/L High 30-185 [facility] Comment on above: Performed By: #### L AB62 ####Director Consumer: SHAHLA WARREN ([phone])[facility])[address] [place] [address] COMPLETE URINALYSIS WITH REF EMA TO CULTUREon 12-25-2024 BACTERIA (#/HPF) IN URINE Negative Normal Negative [facility] Comment on above: Performed By: #### L [id number], [id number] ####Director Consumer: SHAHLA WARREN ([phone])[facility])[address] [place] [address] BILIRUBIN, TOTAL PRESENCE IN URINE Negative Normal Negative [facility] Comment on above: Performed By: #### L [id number], [id number] ####Director Consumer: SHAHLA WARREN ([phone])[facility])[address] [place] [address] Clarity (U) Extra Turbid Abnormal Clear [facility] Comment on above: Performed By: #### L [id number], [id number] ####Director Consumer: SHAHLA WARREN ([phone])[facility])[address] [place] [address] Color (U) Yellow Normal Lt. Yellow [facility] Comment on above: Performed By: #### L [id number], [id number] ####Director Consumer: SHAHLA WARREN ([phone])[facility])[address] [place] [address] Glucose (U) [Mass/Vol] 50 mg/dL Normal Normal (<70) [facility] Comment on above: Performed By: #### L [id number], [id number] ####Director Consumer: SHAHLA WARREN ([phone])[facility])[address] [place] [address] HEMOGLOBIN PRESENCE IN URINE >1.0 Abnormal Negative [facility] Comment on above: Performed By: #### L [id number], [id number] ####Director Consumer: SHAHLA WARREN ([phone])[facility] [place] [address] HYALINE CASTS (#/LPF) IN URINE SEDIMENT BY MICROSCOPY Negative Normal Negative [facility] Comment on above: Performed By: #### L [id number], [id number] ####Director Consumer: SHAHLA WARREN ([phone])[facility])[address] [place] [address] Ketones Ql (U) Negative Normal Negative [facility] Comment on above: Performed By: #### L [id number], [id number] ####Director Consumer: SHAHLA WARREN ([phone])[facility] ([facility])[address] [place] [address] LEUKOCYTE ESTERASE PRESENCE IN URINE BY TEST STRIP Negative Normal Negative [facility] Comment on above: Performed By: #### L [id number], [id number] ####Director Consumer: SHAHLA WARREN ([phone])[facility])[address] [place] [address] [place] MUCUS (#/LPF) IN URINE SEDIMENT Few Normal Negative [facility] Comment on above: Performed By: #### L [id number], [id number] ####Director Consumer: SHAHLA WARREN ([phone])[facility] ([facility])[address] [place] [address] NITRITE PRESENCE IN URINE Negative Normal Negative [facility] Comment on above: Performed By: #### L [id number], [id number] ####Director Consumer: SHAHLA WARREN ([phone])[facility] ([facility])[address] [place] [address] pH (U) 5.5 [pH] Normal 5.0-8.0 [facility] Comment on above: Performed By: #### L [id number], [id number] ####Director Consumer: SHAHLA WARREN ([phone])[facility] ([facility])[address] [place] [address] Protein (U) [Mass/Vol] 50 mg/dL Abnormal Negative [facility] Comment on above: Performed By: #### L [id number], [id number] ####Director Consumer: SHAHLA WARREN ([phone])[facility])[address] [place] [address] RBC (#/HPF) IN URINE SEDIMENT 51-100 Abnormal 0-2 [facility] Comment on above: Performed By: #### L [id number], [id number] ####Director Consumer: SHAHLA WARREN ([phone])[facility])[address] [place] [address] Specific gravity (U) [Rel density] 1.017 Normal 1.005-1.030 [facility] Comment on above: Result Comment: DARIO Wylie COMMENTS:This specimen has been reflexed to urine culture. Performed By: #### L [id number], [id number] ####Director Consumer: SHAHLA WARREN ([phone])[facility])[address] [place] [address] SQUAMOUS EPITHELIAL CELLS (#/HPF) IN URINE SEDIMENT 3-5 Normal 3-5 [facility] Comment on above: Performed By: #### L [id number], [id number] ####Director Consumer: SHAHLA WARREN ([phone])[facility])[address] [place] [address] UROBILINOGEN (MG/DL) IN URINE Normal Normal Normal (0-1) [facility] Comment on above: Performed By: #### L [id number], [id number] ####Director Consumer: SHAHLA WARREN ([phone])[facility])[address] [place] [address] WBC (LEUKOCYTE) (#/HPF) IN URINE SEDIMENT 26-50 Abnormal 0-5 [facility] Comment on above: Performed By: #### L [id number], [id number] ####Director Consumer: SHAHLA WARREN ([phone])[facility])[address] [place] [address] COMPREHENSIVE METABOLIC PANE Clifford 12-25-2024 Albumin [Mass/Vol] 2.5 g/dL Low 3.5-5.0 [facility] Comment on above: Performed By: #### Prem WISDOM LAB17, [id number] ####Director Consumer: SHAHLA WARREN ([phone])[facility] ([facility])[address] [place] [address] ALP [Catalytic activity/Vol] 24 U/L Low 40-150 [facility] Comment on above: Performed By: #### Perm WISDOM LAB17, [id number] ####Director Consumer: SHAHLA WARREN ([phone])[facility] ([facility])[address] [place] [address] ALT [Catalytic activity/Vol] 253 U/L High <40 [facility] Comment on above: Performed By: #### Prem WISDOM LAB17, [id number] ####Director Consumer: SHAHLA WARREN ([phone])[facility] ([facility])[address] [place] [address] Anion gap [Moles/Vol] 14 mmol/L High 3-13 [facility] Comment on above: Performed By: #### Prem WISDOM LAB17, [id number] ####Director Consumer: SHAHLA WARREN ([phone])[facility] ([facility])[address] [place] [address] [place] AST [Catalytic activity/Vol] 374 U/L High <34 [facility] Comment on above: Performed By: #### Prem WISDOM LAB17, [id number] ####Director Consumer: SHAHLA WARREN ([phone])[facility] ([facility])[address] [place] [address] Bilirubin [Mass/Vol] 0.4 mg/dL Normal <1.2 [facility] Comment on above: Performed By: #### Prem WISDOM LAB17, [id number] ####Director Consumer: SHAHLA WARREN ([phone])[facility] ([facility])[address] [place] [address] Calcium [Mass/Vol] 7.9 mg/dL Low 8.4-10.2 [facility] Comment on above: Performed By: #### Prem ABAidan, LAB17, [id number] ####Director Consumer: SHAHLA WARREN ([phone])[facility])[address] [place] [address] Chloride [Moles/Vol] 98 mmol/L Normal 98-107 [facility] Comment on above: Performed By: #### Prem ABAidan, LAB17, [id number] ####Director Consumer: SHAHLA WARREN ([phone])[facility] ([facility])[address] [place] [address] CO2 [Moles/Vol] 21 mmol/L Low 22-29 [facility] Comment on above: Performed By: #### Prem WISDOM, LAB17, [id number] ####Director Consumer: SHAHLA WARREN ([phone])[facility])[address] [place] [address] Creatinine [Mass/Vol] 1.79 mg/dL High 0.72-1.25 [facility] Comment on above: Performed By: #### Prem WISDOM, LAB17, [id number] ####Director Consumer: SHAHLA WARREN ([phone])[facility])[address] [place] [address] GLOMERULAR FILTRATION RATE ML/MIN/1.73 SQ M.PREDICTED 50.1 mL/min/1.73m*2 Low >60.0 [facility] Comment on above: Result Comment: Calc ulation based on the Chronic Kidney Disease Epidemiology Collaboration (CKD-EPI) equation refit without adjustment for race Performed By: #### rPem AB62, LAB17, [id number] ####Director Consumer: SHAHLA WARREN ([phone])[facility] ([facility])[address] [place] [address] [place] Glucose [Mass/Vol] 257 mg/dL High 74-100 [facility] Comment on above: Performed By: #### Prem AB62, LAB17, [id number] ####Director Consumer: SHAHLA [phone])[facility] ([facility] Potassium [Moles/Vol] 4.7 mmol/L Normal 3.5-5.1 [facility] Comment on above: Result Comment: [facility] potassium values may be up to 0.5 mmol/L lower than serum values. Performed By: #### L AB62, LAB17, [id number] ####Director Consumer: SHAHLA WARREN ([phone])[facility])[address] [place] [address] Protein [Mass/Vol] 4.9 g/dL Low 6.4-8.3 [facility] Comment on above: Performed By: #### L AB62, LAB17, [id number] ####Director Consumer: SHAHLA WARREN ([phone])[facility])[address] [place] [address] Sodium [Moles/Vol] 133 mmol/L Low 136-145 [facility] Comment on above: Performed By: #### Prem AB62, LAB17, [id number] ####Director Consumer: SHAHLA WARREN ([phone])[facility] ([facility])[address] [place] [address] Urea nitrogen [Mass/Vol] 30 mg/dL High 8-21 [facility] Comment on above: Performed By: #### L AB62, LAB17, [id number] ####Director Consumer: SHAHLA WARREN ([phone])[facility])[address] [place] [address] Albumin [Mass/Vol] 2.6 g/dL Low 3.5-5.0 [facility] Comment on above: Performed By: #### L AB17 ####Director Consumer: SHAHLA WARREN ([phone])[facility])[address] [place] [address] ALP [Catalytic activity/Vol] 24 U/L Low 40-150 [facility] Comment on above: Performed By: #### L AB17 ####Director Consumer: SHAHLA WARREN ([phone])[facility])[address] [place] [address] [place] ALT [Catalytic activity/Vol] 261 U/L High <40 [facility] Comment on above: Performed By: #### L AB17 ####Director Consumer: SHAHLA WARREN ([phone])[facility] ([facility])[address] [place] [address] Anion gap [Moles/Vol] 14 mmol/L High 3-13 [facility] Comment on above: Performed By: #### L AB17 ####Director Consumer: SHAHLA WARREN ([phone])[facility] ([facility])[address] [place] [address] AST [Catalytic activity/Vol] 418 U/L High <34 [facility] Comment on above: Performed By: #### L AB17 ####Director Consumer: SHAHLA WARREN ([phone])[facility])[address] [place] [address] Bilirubin [Mass/Vol] 0.4 mg/dL Normal <1.2 [facility] Comment on above: Performed By: #### L AB17 ####Director Consumer: SHAHLA WARREN ([phone])[facility])[address] [place] [address] Calcium [Mass/Vol] 7.9 mg/dL Low 8.4-10.2 [facility] Comment on above: Performed By: #### L AB17 ####Director Consumer: SHAHLA WARREN ([phone])[facility])[address] [place] [address] [place] Chloride [Moles/Vol] 96 mmol/L Low 98-107 [facility] Comment on above: Performed By: #### L AB17 ####Director Consumer: SHAHLA WARREN ([phone])[facility])[address] [place] [address] [place] CO2 [Moles/Vol] 22 mmol/L Normal 22-29 [facility] Comment on above: Performed By: #### L AB17 ####Director Consumer: SHAHLA WARREN ([phone])[facility])[address] [place] [address] Creatinine [Mass/Vol] 1.89 mg/dL High 0.72-1.25 [facility] Comment on above: Performed By: #### L AB17 ####Director Consumer: SHAHLA WARREN ([phone])[facility])[address] [place] [address] [place] GLOMERULAR FILTRATION RATE ML/MIN/1.73 SQ M.PREDICTED 46.9 mL/min/1.73m*2 Low >60.0 [facility] Comment on above: Result Comment: Calc ulation based on the Chronic Kidney Disease Epidemiology Collaboration (CKD-EPI) equation refit without adjustment for race Performed By: #### L AB17 ####Director Consumer: SHAHLA WARREN ([phone])[facility])[address] [place] [address] Glucose [Mass/Vol] 282 mg/dL High 74-100 [facility] Comment on above: Performed By: #### L AB17 ####Director Consumer: SHAHLA WARREN ([phone])[facility])[address] [place] [address] Potassium [Moles/Vol] 5.1 mmol/L Normal 3.5-5.1 [facility] Comment on above: Result Comment: [facility] potassium values may be up to 0.5 mmol/L lower than serum values. Performed By: #### L AB17 ####Director Consumer: SHAHLA WARREN ([phone])[facility])[address] [place] [address] Protein [Mass/Vol] 5.0 g/dL Low 6.4-8.3 [facility] Comment on above: Performed By: #### L AB17 ####Director Consumer: SHAHLA WARREN ([phone])[facility])[address] [place] [address] Sodium [Moles/Vol] 132 mmol/L Low 136-145 [facility] Comment on above: Performed By: #### L AB17 ####Director Consumer: SHAHLA [phone])[facility] ([facility])[address] [place] [address] Urea nitrogen [Mass/Vol] 29 mg/dL High 8-21 [facility] Comment on above: Performed By: #### L AB17 ####Director Consumer: SHAHLA WARREN ([phone])[facility] ([facility])[address] [place] [address] Albumin [Mass/Vol] 2.6 g/dL Low 3.5-5.0 [facility] Comment on above: Performed By: #### L AB17, LAB62 ####Director Consumer: SHAHLA WARREN ([phone])[facility] ([facility])[address] [place] [address] ALP [Catalytic activity/Vol] 21 U/L Low 40-150 [facility] Comment on above: Performed By: #### L AB17, LAB62 ####Director Consumer: SHAHLA WARREN ([phone])[facility] ([facility])[address] [place] [address] ALT [Catalytic activity/Vol] 278 U/L High <40 [facility] Comment on above: Performed By: #### L AB17, LAB62 ####Director Consumer: SHAHLA WARREN ([phone])[facility])[address] [place] [address] Anion gap [Moles/Vol] 11 mmol/L Normal 3-13 [facility] Comment on above: Performed By: #### L AB17, LAB62 ####Director Consumer: SHAHLA WARREN ([phone])[facility] ([facility])[address] [place] [address] [place] AST [Catalytic activity/Vol] 495 U/L High <34 [facility] Comment on above: Performed By: #### L AB17, LAB62 ####Director Consumer: SHAHLA WARREN ([phone])[facility] ([facility])[address] [place] [address] Bilirubin [Mass/Vol] 0.4 mg/dL Normal <1.2 [facility] Comment on above: Performed By: #### L AB17, LAB62 ####Director Consumer: SHAHLA WARREN ([phone])[facility])[address] [place] [address] Calcium [Mass/Vol] 8.2 mg/dL Low 8.4-10.2 [facility] Comment on above: Performed By: #### L AB17, LAB62 ####Director Consumer: SHAHLA WARREN ([phone])[facility])[address] [place] [address] Chloride [Moles/Vol] 100 mmol/L Normal 98-107 [facility] Comment on above: Performed By: #### Prem WEBER17, LAB62 ####Director Consumer: SHAHLA WARREN ([phone])[facility])[address] [place] [address] CO2 [Moles/Vol] 21 mmol/L Low 22-29 [facility] Comment on above: Performed By: #### Prem WEBER17, LAB62 ####Director Consumer: SHAHLA WARREN ([phone])[facility] ([facility])[address] [place] [address] Creatinine [Mass/Vol] 1.95 mg/dL High 0.72-1.25 [facility] Comment on above: Performed By: #### L AB17, LAB62 ####Director Consumer: SHAHLA WARREN ([phone])[facility])[address] [place] [address] [place] GLOMERULAR FILTRATION RATE ML/MIN/1.73 SQ M.PREDICTED 45.2 mL/min/1.73m*2 Low >60.0 [facility] Comment on above: Result Comment: Calc ulation based on the Chronic Kidney Disease Epidemiology Collaboration (CKD-EPI) equation refit without adjustment for race Performed By: #### L AB17, LAB62 ####Director Consumer: SHAHLA WARREN ([phone])[facility])[address] [place] [address] Glucose [Mass/Vol] 271 mg/dL High 74-100 [facility] Comment on above: Performed By: #### L AB17, LAB62 ####Director Consumer: SHAHLA WARREN ([phone])[facility])[address] [place] [address] Potassium [Moles/Vol] 5.6 mmol/L High 3.5-5.1 [facility] Comment on above: Result Comment: [facility] potassium values may be up to 0.5 mmol/L lower than serum values. Performed By: #### L AB17, LAB62 ####Director Consumer: SHAHLA WARREN ([phone])[facility] ([facility])[address] [place] [address] Protein [Mass/Vol] 4.8 g/dL Low 6.4-8.3 [facility] Comment on above: Performed By: #### L AB17, LAB62 ####Director Consumer: SHAHLA WARERN ([phone])[facility])[address] [place] [address] [place] Sodium [Moles/Vol] 132 mmol/L Low 136-145 [facility] Comment on above: Performed By: #### L AB17, LAB62 ####Director Consumer: SHAHLA WARREN ([phone])[facility])[address] [place] [address] [place] Urea nitrogen [Mass/Vol] 29 mg/dL High 8-21 [facility] Comment on above: Performed By: #### L AB17, LAB62 ####Director Consumer: SHAHLA WARREN ([phone])[facility])[address] [place] [address] [place] Albumin [Mass/Vol] 2.6 g/dL Low 3.5-5.0 [facility] Comment on above: Performed By: #### L AB103, [id number], LAB62, LAB17 ####Director Consumer: SHAHLA WARREN ([phone])[facility])[address] [place] [address] [place] ALP [Catalytic activity/Vol] 19 U/L Low 40-150 [facility] Comment on above: Performed By: #### L AB103, [id number], LAB62, LAB17 ####Director Consumer: SHAHLA WARREN ([phone])[facility])[address] [place] [address] [place] [Catalytic activity/Vol] 276 U/L High <40 [facility] Comment on above: Performed By: #### L AB103, [id number], LAB62, LAB17 ####Director Consumer: SHAHLA WARREN ([phone])[facility] ([facility])[address] [place] [address] Anion gap [Moles/Vol] 11 mmol/L Normal 3-13 [facility] Comment on above: Performed By: #### L AB103, [id number], LAB62, LAB17 ####Director Consumer: SHAHLA WARREN ([phone])[facility])[address] [place] [address] AST [Catalytic activity/Vol] 582 U/L High <34 [facility] Comment on above: Performed By: #### L AB103, [id number], LAB62, LAB17 ####Director Consumer: SHAHLA WARREN ([phone])[facility] ([facility])[address] [place] [address] Bilirubin [Mass/Vol] 0.3 mg/dL Normal <1.2 [facility] Comment on above: Performed By: #### L AB103, [id number], LAB62, LAB17 ####Director Consumer: SHAHLA WARREN ([phone])[facility])[address] [place] [address] Calcium [Mass/Vol] 7.2 mg/dL Low 8.4-10.2 [facility] Comment on above: Performed By: #### L AB103, [id number], LAB62, LAB17 ####Director Consumer: SHAHLA WARREN ([phone])[facility])[address] [place] [address] Chloride [Moles/Vol] 104 mmol/L Normal 98-107 [facility] Comment on above: Performed By: #### L AB103, [id number], LAB62, LAB17 ####Director Consumer: SHHALA WARREN ([phone])[facility])[address] [place] [address] CO2 [Moles/Vol] 22 mmol/L Normal 22-29 [facility] Comment on above: Performed By: #### L AB103, [id number], LAB62, LAB17 ####Director Consumer: SHAHLA WARREN ([phone])[facility] ([facility])[address] [place] [address] Creatinine [Mass/Vol] 2.04 mg/dL High 0.72-1.25 [facility] Comment on above: Performed By: #### L AB103, VVL198, LAB62, LAB17 ####Director Consumer: SHAHLA WARREN ([phone])[facility])[address] [place] [address] GLOMERULAR FILTRATION RATE ML/MIN/1.73 SQ M.PREDICTED 42.8 mL/min/1.73m*2 Low >60.0 [facility] Comment on above: Result Comment: Calc ulation based on the Chronic Kidney Disease Epidemiology Collaboration (CKD-EPI) equation refit without adjustment for race Performed By: #### L AB103, [id number], LAB62, LAB17 ####Director Consumer: SHAHLA WARREN ([phone])[facility] ([facility])[address] [place] [address] Glucose [Mass/Vol] 221 mg/dL High 74-100 [facility] Comment on above: Performed By: #### L AB103, GEX677, LAB62, LAB17 ####Director Consumer: SHAHLA WARREN ([phone])[facility])[address] [place] [address] Potassium [Moles/Vol] 4.5 mmol/L Normal 3.5-5.1 [facility] Comment on above: Performed By: #### L AB103, [id number], LAB62, LAB17 ####Director Consumer: SHAHLA WARREN ([phone])[facility])[address] [place] [address] Protein [Mass/Vol] 4.4 g/dL Low 6.4-8.3 [facility] Comment on above: Performed By: #### L AB103, BIN905, LAB62, LAB17 ####Director Consumer: SHAHLA WARREN ([phone])[facility])[address] [place] [address] Sodium [Moles/Vol] 137 mmol/L Normal 136-145 [facility] Comment on above: Performed By: #### L AB103, [id number], LAB62, LAB17 ####Director Consumer: SHAHLA WARREN ([phone])[facility])[address] [place] [address] Urea nitrogen [Mass/Vol] 28 mg/dL High 8-21 [facility] Comment on above: Performed By: #### L AB103, [id number], LAB62, LAB17 ####Director Consumer: SHAHLA WARREN ([phone])[facility] ([facility])[address] [place] [address] Albumin [Mass/Vol] 3.0 g/dL Low 3.5-5.0 [facility] Comment on above: Performed By: #### L AB17 ####Director Consumer: SHAHLA WARREN ([phone])[facility] ([facility])[address] [place] [address] [place] ALP [Catalytic activity/Vol] 23 U/L Low 40-150 [facility] Comment on above: Performed By: #### L AB17 ####Director Consumer: SHAHLA WARREN ([phone])[facility])[address] [place] [address] [place] ALT [Catalytic activity/Vol] 325 U/L High <40 [facility] Comment on above: Performed By: #### L AB17 ####Director Consumer: SHAHLA WARREN ([phone])[facility])[address] [place] [address] [place] Anion gap [Moles/Vol] 7 mmol/L Normal 3-13 [facility] Comment on above: Performed By: #### L AB17 ####Director Consumer: SHAHLA WARREN ([phone])[facility] ([facility])[address] [place] [address] AST [Catalytic activity/Vol] 696 U/L High <34 [facility] Comment on above: Performed By: #### L AB17 ####Director Consumer: SHAHLA WARREN ([phone])[facility] ([facility])[address] [place] [address] Bilirubin [Mass/Vol] 0.3 mg/dL Normal <1.2 [facility] Comment on above: Performed By: #### L AB17 ####Director Consumer: SHAHLA WARREN ([phone])[facility] ([facility])[address] [place] [address] Calcium [Mass/Vol] 7.5 mg/dL Low 8.4-10.2 [facility] Comment on above: Performed By: #### L AB17 ####Director Consumer: SHAHLA WARREN ([phone])[facility] [place] [address] [place] Chloride [Moles/Vol] 107 mmol/L Normal 98-107 [facility] Comment on above: Performed By: #### L AB17 ####Director Consumer: SHAHLA WARREN ([phone])[facility] ([facility])[address] [place] [address] [place] CO2 [Moles/Vol] 20 mmol/L Low 22-29 [facility] Comment on above: Performed By: #### L AB17 ####Director Consumer: SHAHLA WARREN ([phone])[facility] ([facility])[address] [place] [address] [place] Creatinine [Mass/Vol] 2.12 mg/dL High 0.72-1.25 [facility] Comment on above: Performed By: #### L AB17 ####Director Consumer: SHAHLA WARREN ([phone])[facility] ([facility])[address] GLOMERULAR FILTRATION RATE ML/MIN/1.73 SQ M.PREDICTED 40.9 mL/min/1.73m*2 Low >60.0 [facility] Comment on above: Result Comment: Calc ulation based on the Chronic Kidney Disease Epidemiology Collaboration (CKD-EPI) equation refit without adjustment for race Performed By: #### L AB17 ####Director Consumer: SHAHLA WARREN ([phone])[facility])[address] [place] [address] [place] Glucose [Mass/Vol] 184 mg/dL High 74-100 [facility] Comment on above: Performed By: #### L AB17 ####Director Consumer: SHAHLA WARREN ([phone])[facility])[address] [place] [address] Potassium [Moles/Vol] 6.2 mmol/L Critically high 3.5-5.1 [facility] Comment on above: Performed By: #### L AB17 ####Director Consumer: SHAHLA WARREN ([phone])[facility])[address] [place] [address] [place] Protein [Mass/Vol] 5.1 g/dL Low 6.4-8.3 [facility] Comment on above: Performed By: #### L AB17 ####Director Consumer: SHAHLA WARREN ([phone])[facility])[address] [place] [address] [place] Sodium [Moles/Vol] 134 mmol/L Low 136-145 [facility] Comment on above: Performed By: #### L AB17 ####Director Consumer: SHAHLA AWRREN ([phone])[facility])[address] [place] [address] [place] Urea nitrogen [Mass/Vol] 28 mg/dL High 8-21 [facility] Comment on above: Performed By: #### L AB17 ####Director Consumer: SHAHLA WARREN ([phone])[facility] ([facility])[address] [place] [address] [place] Albumin [Mass/Vol] 3.0 g/dL Low 3.5-5.0 [facility] Comment on above: Performed By: #### L AB17 ####Director Consumer: SHAHLA WARREN ([phone])[facility] ([facility])[address] [place] [address] ALP [Catalytic activity/Vol] 25 U/L Low 40-150 [facility] Comment on above: Performed By: #### L AB17 ####Director Consumer: SHAHLA WARREN ([phone])[facility] ([facility])[address] [place] [address] ALT [Catalytic activity/Vol] 348 U/L High <40 [facility] Comment on above: Performed By: #### L AB17 ####Director Consumer: SHAHLA WARREN ([phone])[facility] ([facility])[address] [place] [address] Anion gap [Moles/Vol] 10 mmol/L Normal 3-13 [facility] Comment on above: Performed By: #### L AB17 ####Director Consumer: SHAHLA WARREN ([phone])[facility] ([facility])[address] [place] [address] AST [Catalytic activity/Vol] 793 U/L High <34 [facility] Comment on above: Performed By: #### L AB17 ####Director Consumer: SHAHLA WARREN ([phone])[facility] ([facility])[address] [place] [address] Bilirubin [Mass/Vol] 0.3 mg/dL Normal <1.2 [facility] Comment on above: Performed By: #### L AB17 ####Director Consumer: SHAHLA WARREN ([phone])[facility] ([facility])[address] [place] [address] Calcium [Mass/Vol] 8.1 mg/dL Low 8.4-10.2 [facility] Comment on above: Performed By: #### L AB17 ####Director Consumer: SHAHLA WARREN ([phone])[facility] ([facility])[address] [place] [address] Chloride [Moles/Vol] 109 mmol/L High 98-107 [facility] Comment on above: Performed By: #### L AB17 ####Director Consumer: SHAHLA WARREN ([phone])[facility] ([facility])[address] [place] [address] CO2 [Moles/Vol] 17 mmol/L Low 22-29 [facility] Comment on above: Performed By: #### L AB17 ####Director Consumer: SHAHLA WARREN ([phone])[facility])[address] [place] [address] Creatinine [Mass/Vol] 1.95 mg/dL High 0.72-1.25 [facility] Comment on above: Performed By: #### L AB17 ####Director Consumer: SHAHLA WARREN ([phone])[facility] ([facility])[address] [place] [address] GLOMERULAR FILTRATION RATE ML/MIN/1.73 SQ M.PREDICTED 45.2 mL/min/1.73m*2 Low >60.0 [facility] Comment on above: Result Comment: Calc ulation based on the Chronic Kidney Disease Epidemiology Collaboration (CKD-EPI) equation refit without adjustment for race Performed By: #### L AB17 ####Director Consumer: SHAHLA WARREN ([phone])[facility] ([facility])[address] [place] [address] Glucose [Mass/Vol] 126 mg/dL High 74-100 [facility] Comment on above: Performed By: #### L AB17 ####Director Consumer: SHAHLA WARREN ([phone])[facility] ([facility])[address] [place] [address] Potassium [Moles/Vol] 4.4 mmol/L Normal 3.5-5.1 [facility] Comment on above: Result Comment: [facility] potassium values may be up to 0.5 mmol/L lower than serum values. Performed By: #### L AB17 ####Director Consumer: SHAHLA [phone])[facility])[address] [place] [address] Protein [Mass/Vol] 5.0 g/dL Low 6.4-8.3 [facility] Comment on above: Performed By: #### L AB17 ####Director Consumer: SHAHLA WARREN ([phone])[facility])[address] [place] [address] Sodium [Moles/Vol] 136 mmol/L Normal 136-145 [facility] Comment on above: Performed By: #### L AB17 ####Director Consumer: SHAHLA WARREN ([phone])[facility])[address] [place] [address] Urea nitrogen [Mass/Vol] 25 mg/dL High 8-21 [facility] Comment on above: Performed By: #### L AB17 ####Director Consumer: SHAHLA WARREN ([phone])[facility])[address] [place] [address] Consulton 12-25-2024 Consult Normal [facility] ETHYL GLUCURONIDE SCREEN, UR INEon 12-25-2024 ETHYL GLUCURONIDE, URINE Positive Normal Negative [facility] Comment on above: Result Comment: DARIO Wylie COMMENTS:Ethyl Glucuronide has been screened by Immunoassay at a 500 ng/mL threshold. POSITIVE results are not confirmed by a more specific alternative method unless requested. If confirmation is needed, request confirmation under separate order.NOTE: These results are for medical treatment only. Analysis performed using non-forensic procedures.This test has not been cleared by the [place] Food and Drug Administration (FDA). The FDA has determined that such clearance or approval is not necessary. The performance characteristics have been determined by the clinical laboratories of [facility]. Performed By: #### L [id number], [id number], [id number] ####Director Consumer: SHAHLA WARREN ([phone])[facility])[address] [place] [address] LACTIC ACID WITH REFLEXon Lactate [Moles/Vol] 1.8 mmol/L Normal 0.5-2.2 [facility] Comment on above: Performed By: #### L [id number] ####Director Consumer: SHAHLA WARREN ([phone])[facility])[address] [place] [address] LEGIONELLA AND STREPTOCOCCUS URINE ANTIGENon 12-25-2024 LEGIONELLA AND STREPTOCOCCUS URINE ANTIGEN Normal [facility] Comment on above: Performed By: #### L [id number] ####Director Consumer: SHAHLA WARREN ([phone])[facility])[address] [place] [address] MAGNESIUMon 12-25-2024 Magnesium [Mass/Vol] 1.2 mg/dL Low 1.6-2.6 [facility] Comment on above: Result Comment: DARIO Wylie COMMENTS:Higher values can be expected in females during menses. Performed By: #### L [id number], [id number], LAB62, LAB17 ####Director Consumer: SHAHLA WARREN ([phone])[facility])[address] [place] [address] MANUAL DIFFERENTIALon 2024 BAND NEUTROPHILS TOTAL PER COUNTED LEUKOCYTES BY MANUAL COUNT 37 Normal [facility] Comment on above: Performed By: #### L [id number], [id number] ####Director Consumer: SHAHLA WARREN ([phone])[facility])[address] [place] [address] BANDS 1.2 10*3/uL High <=0.0 [facility] Comment on above: Performed By: #### L [id number], [id number] ####Director Consumer: SHAHLA WARREN ([phone])[facility])[address] [place] [address] CELLS COUNTED TOTAL (#) IN BLOOD 100 Normal [facility] Comment on above: Performed By: #### L [id number], [id number] ####Director Consumer: SHAHLA WARREN ([phone])[facility])[address] [place] [address] DIFFERENTIAL METHOD Manual differential performed Normal [facility] Comment on above: Performed By: #### L [id number], [id number] ####Director Consumer: SHAHLA WARREN ([phone])[facility] ([facility])[address] [place] [address] [place] LEUKOCYTE MORPHOLOGY FINDING IN BLOOD Normal Normal [facility] Comment on above: Performed By: #### L [id number], [id number] ####Director Consumer: SHAHLA WARREN ([phone])[facility])[address] [place] [address] [place] LEUKOCYTES (10*3/UL) NUCLEATED ERYTHROCYTE ADJUST 3.3 10*3/uL Low 3.6-10.7 [facility] Comment on above: Performed By: #### L [id number], [id number] ####Director Consumer: SHAHLA WARREN ([phone])[facility])[address] [place] [address] [place] LYMPHOCYTES (10*3/UL) IN BLOOD BY MANUAL COUNT 0.4 10*3/uL Low 1.0-4.3 [facility] Comment on above: Performed By: #### L [id number], [id number] ####Director Consumer: SHAHLA WARREN ([phone])[facility] ([facility])[address] [place] [address] [place] LYMPHOCYTES TOTAL PER COUNTED LEUKOCYTES BY MANUAL COUNT 11 Normal [facility] Comment on above: Performed By: #### L [id number], [id number] ####Director Consumer: SHAHLA WARREN ([phone])[facility])[address] [place] [address] [place] LYMPHOCYTES VARIANT/100 LEUKOCYTES IN BLOOD 2 % High <=0 [facility] Comment on above: Performed By: #### L [id number], [id number] ####Director Consumer: SHAHLA WARREN ([phone])[facility])[address] [place] [address] [place] LYMPHOCYTES/100 LEUKOCYTES IN BLOOD BY MANUAL COUNT 11 % Low 15-45 [facility] Comment on above: Performed By: #### L [id number], [id number] ####Director Consumer: SHAHLA WARREN ([phone])[facility])[address] [place] [address] [place] METAMYELOCYTES (10*3/UL) IN BLOOD BY MANUAL COUNT 0.1 10*3/uL High <=0.0 [facility] Comment on above: Performed By: #### L [id number], [id number] ####Director Consumer: SHAHLA WARREN ([phone])[facility] [place] [address] [place] METAMYELOCYTES TOTAL PER COUNTED LEUKOCYTES BY MANUAL COUNT 4 Normal [facility] Comment on above: Performed By: #### L [id number], [id number] ####Director Consumer: SHAHLA WARREN ([phone])[facility] ([facility])[address] [place] [address] [place] METAMYELOCYTES/100 LEUKOCYTES IN BLOOD BY MANUAL COUNT 4 % High <=0 [facility] Comment on above: Performed By: #### L [id number], [id number] ####Director Consumer: SHAHLA WARREN ([phone])[facility])[address] [place] [address] [place] MONOCYTES (10*3/UL) IN BLOOD BY MANUAL COUNT 0.3 10*3/uL Normal 0.0-0.9 [facility] Comment on above: Performed By: #### L [id number], [id number] ####Director Consumer: SHAHLA WARREN ([phone])[facility])[address] [place] [address] [place] MONOCYTES TOTAL PER COUNTED LEUKOCYTES BY MANUAL COUNT 8 Normal [facility] Comment on above: Performed By: #### L [id number], [id number] ####Director Consumer: SHAHLA WARREN ([phone])[facility] [place] [address] [place] MONOCYTES/100 LEUKOCYTES IN BLOOD BY MANUAL COUNT 8 % Normal 5-13 [facility] Comment on above: Performed By: #### L [id number], [id number] ####Director Consumer: SHAHLA WARREN ([phone])[facility])[address] [place] [address] [place] MYELOCYTES (10*3/UL) IN BLOOD BY MANUAL COUNT 0.0 10*3/uL Normal <=0.0 [facility] Comment on above: Performed By: #### L [id number], [id number] ####Director Consumer: SHAHLA WARREN ([phone])[facility] ([facility])[address] [place] [address] [place] MYELOCYTES COUNTED BY MANUAL COUNT 1 Normal [facility] Comment on above: Performed By: #### Prem [id number], [id number] ####Director Consumer: SHAHLA WARREN ([phone])[facility] ([facility])[address] [place] [address] [place] MYELOCYTES/100 LEUKOCYTES IN BLOOD BY MANUAL COUNT 1 % High <=0 [facility] Comment on above: Performed By: #### Prem [id number], [id number] ####Director Consumer: SHAHLA WARREN ([phone])[facility] ([facility])[address] [place] [address] [place] NEUTROPHILS (SEGS+BANDS) (10*3/UL) BY MANUAL COUNT 2.4 10*3/uL Normal 1.8-7.0 [facility] Comment on above: Performed By: #### Prem DOAN, [id number] ####Director Consumer: SHAHLA WARREN ([phone])[facility] ([facility])[address] [place] [address] [place] NEUTROPHILS BAND FORM/100 LEUKOCYTES IN BLOOD BY MANUAL COUNT 37 % High <=0 [facility] Comment on above: Performed By: #### Prem [id number], [id number] ####Director Consumer: SHAHLA WARREN ([phone])[facility])[address] [place] [address] [place] NEUTROPHILS TOTAL PER COUNTED LEUKOCYTES BY MANUAL COUNT 37 Normal [facility] Comment on above: Performed By: #### L [id number], [id number] ####Director Consumer: SHAHLA WARREN ([phone])[facility] ([facility])[address] [place] [address] [place] PLATELET MORPHOLOGY IN BLOOD Normal Normal [facility] Comment on above: Performed By: #### L [id number], [id number] ####Director Consumer: SHAHLA WARREN ([phone])[facility])[address] [place] [address] RBC MORPHOLOGY IN BLOOD Normal Normal [facility] Comment on above: Performed By: #### L [id number], [id number] ####Director Consumer: SHAHLA WARREN ([phone])[facility])[address] [place] [address] SEGEMENTED NEUTROPHILS/100 LEUKOCYTES BY MANUAL COUNT 37 % Low 38-82 [facility] Comment on above: Performed By: #### L [id number], [id number] ####Director Consumer: SHAHLA WARREN ([phone])[facility])[address] [place] [address] SEGMENTED NEUTROPHILS (10*3/UL)IN BLOOD BY MANUAL COUNT 2.4 10*3/uL Normal 1.8-7.5 [facility] Comment on above: Performed By: #### L [id number], [id number] ####Director Consumer: SHAHLA WARREN ([phone])[facility])[address] [place] [address] VARIANT LYMPHOCYTES (10*3/UL) IN BLOOD BY MANUAL COUNT 0.1 10*3/uL High <=0.0 [facility] Comment on above: Performed By: #### L [id number], [id number] ####Director Consumer: SHAHLA WARREN ([phone])[address] VARIANT LYMPHOCYTES TOTAL PER COUNTED LEUKOCYTES BY MANUAL COUNT 2 Normal [facility] Comment on above: Performed By: #### L [id number], [id number] ####Director Consumer: SHAHLA WARREN ([phone])[facility])[address] [place] [address] MEDICATION ASSISTED TREATMEN T PANELon 12-25-2024 Amphetamines Ql (U) Negative Normal Negative [facility] Comment on above: Performed By: #### L [id number], [id number], [id number] ####Director Consumer: SHAHLA WARREN ([phone])[facility] ([facility])[address] [place] [address] BARBITURATES Negative Normal Negative [facility] Comment on above: Performed By: #### L [id number], [id number], [id number] ####Director Consumer: SHAHLA WARREN ([phone])[facility] ([facility])[address] [place] [address] Benzodiazepines Ql (U) Positive Abnormal Negative [facility] Comment on above: Performed By: #### L [id number], [id number], [id number] ####Director Consumer: SHAHLA WARREN ([phone])[facility] ([facility])[address] [place] [address] BUPRENORPHINE SCREEN Negative Normal Negative [facility] Comment on above: Performed By: #### L [id number], [id number], [id number] ####Director Consumer: SHAHLA WARREN ([phone])[facility] ([facility])[address] [place] [address] Cocaine Ql (U) Negative Normal Negative [facility] Comment on above: Performed By: #### L [id number], [id number], [id number] ####Director Consumer: SHAHLA WARREN ([phone])[facility] ([facility])[address] [place] [address] ETHANOL-ETOHO Negative Normal Negative [facility] Comment on above: Result Comment: DARIO R COMMENTS:The expected value for the drugs listed above is Negative.The following drugs or drug groups have been screened for by Immunoassay at the following thresholds:Amphetamine class(1000ng/mL)Barbituates(200ng/mL)Benzodiazepines(200ng/mL)C ocaine(300ng/mL)Ethanol (50 ng/mL)Methadone(300ng/mL)Opiates(300ng/mL)Oxycodone(100ng/mL)PC P(25ng/mL)Buprenorphine(5ng/mL)THC(50ng/mL)Fentanyl(1ng/mL)Posi tive results are NOT confirmed by a more specific alternative method unless requested. If confirmation is needed, request confirmation under separate order.NOTE: These results are for medical treatment only. Analysis performed using non-forensic procedures. Performed By: #### L [id number], [id number], [id number] ####Director Consumer: SHAHLA WARREN ([phone])[facility] [place] [address] FENTANYL Positive Abnormal Negative [facility] Comment on above: Performed By: #### L [id number], [id number], [id number] ####Director Consumer: SHAHLA WARREN ([phone])[facility] [place] [address] Methadone Ql (U) Positive Abnormal Negative [facility] Comment on above: Performed By: #### L [id number], [id number], [id number] ####Director Consumer: SHAHLA WARREN ([phone])[facility] [place] [address] Opiates Ql (U) Negative Normal Negative [facility] Comment on above: Performed By: #### L [id number], [id number], [id number] ####Director Consumer: SHAHLA WARREN ([phone])[facility] [place] [address] OXYCODONE/OXYMORPHONE Negative Normal Negative [facility] Comment on above: Performed By: #### L [id number], [id number], [id number] ####Director Consumer: SHAHLA WARREN ([phone])[facility] [place] [address] PCP Negative Normal Negative [facility] Comment on above: Performed By: #### L [id number], [id number], [id number] ####Director Consumer: SHAHLA WARREN ([phone])[facility] ([facility])[address] [place] [address] THC-MTTHC Negative Normal Negative [facility] Comment on above: Performed By: #### L [id number], [id number], [id number] ####Director Consumer: SHAHLA WARREN ([phone])[facility])[address] [place] [address] METHADONE CONFIRMATIONon METHADONE CONFIRMATION Detected Normal Not Detected [facility] Comment on above: Performed By: #### L [id number], [id number], [id number] ####Director Consumer: SHAHLA WARREN ([phone])[facility])[address] [place] [address] REVIEWED BY Dewayne Salazar Tech I [facility] Comment on above: Result Comment: DARIO Wylie COMMENTS:Use 12/25 urineThe following were tested for in the urine specimen submitted:METHADONEUrine specimen confirmed by Gas Chromatography/Mass Spectrometry.NOTE: These results are for medical treatment only. Analysis performed using non-forensic procedures.This test has not been cleared by the [place] Food and Drug Administration (FDA). The FDA has determined that such clearance or approval is not necessary. The performance chararcteristics have been determined by the clinical laboratories of [facility]. Performed By: #### L [id number], [id number], [id number] ####Director Consumer: SHAHLA WARREN ([phone])[address] OSMOLALITY, URINEon 12-26-19 25 OSMOLALITY, URINE 486 mOsm/kg Normal 300-1000 [facility] Comment on above: Performed By: #### L [id number], [id number], [id number] ####Director Consumer: SHAHLA WARREN ([phone])[facility])[address] [place] [address] PHOSPHORUSon 12-25-2024 Phosphate [Mass/Vol] 3.8 mg/dL Normal 2.3-4.7 [facility] Comment on above: Performed By: #### L [id number], [id number], [id number], [id number] ####Director Consumer: SHAHLA WARREN ([phone])[address] Progress Noteon 12-25-2024 Progress Note Normal [facility] Progress Note Pt proned @ 17:45 Normal [facility] Progress Note Normal [facility] Progress Note Normal [facility] Progress Note Normal [facility] Progress Note Normal [facility] Respiratory Cultureon 2024 RESPC Mixed normal respiratory samuel. No Streptococcus pneumoniae, beta-hemolytic Streptococcus or Staphylococcus aureus isolated. Normal [facility] Comment on above: Performed By: #### M 100.2400, M100.1999 #### [facility] [address] [place], [place], [address] SODIUM, URINE, RANDOMon CREATININE, URINE 179.3 mg/dL High 63.0-166.0 [facility] Comment on above: Performed By: #### L [id number], [id number], [id number] ####Director Consumer: SHAHLA WARREN ([phone])[address] Result Comment: ORDE R COMMENTS:Concentration is based on a daily urine output of 1.5 L. Sodium (U) [Moles/Vol] 20 mmol/L Normal [facility] Comment on above: Performed By: #### L [id number], [id number], [id number] ####Director Consumer: SHAHLA WARREN ([phone])[address] SODIUM, URINE, FRACTIONAL EXCRETION 0.1 Normal [facility] Comment on above: Performed By: #### L [id number], [id number], [id number] ####Director Consumer: SHAHLA WARREN ([phone])[address] SODIUM, URINE, TUBULAR REABSORPTION 1.0 Normal [facility] Comment on above: Performed By: #### L [id number], [id number], [id number] ####Director Consumer: SHAHLA [phone])[facility])[address] [place] [address] URINE CULTUREon 12-25-2024 Bacteria identified Cx Nom (U) Normal [facility] Comment on above: Performed By: #### L [id number], [id number] ####Director Consumer: SHAHLA WARREN ([phone])[facility] ([facility])[address] [place] [address] US ABDOMEN COMPLETEon 2024 US ABDOMEN COMPLETE Normal [facility] VANCOMYCIN, AUC TIMED DOSING on 12-25-2024 VANCOMYCIN, AUC 17.6 ug/mL Normal [facility] Comment on above: Result Comment: ORDE R COMMENTS:Please draw random level at least >2 hours after the end of the last vancomycin infusion, or 30-minutes before next infusion.Toxicity is seen at concentrations >80-100 ug/mLTherapeutic (Peak) range: 20-40Therapeutic (Trough) range: 5-10 Performed By: #### L AB39 ####Director Consumer: SHAHLA WARREN ([phone])[facility])[address] [place] [address] XR CHEST 1 VIEWon 12-25-2024 XR CHEST 1 VIEW Normal [facility] 12 Lead EKGon 12-24-2024 12 Lead EKG [facility] Cardiovascular Services [address] [place] [address] 12 Lead EKG 12/24/24 1517 MR#: [id number] Acct: [id number] Name: VIOLETTA COLE Rep #: [id number] : 1990 34 From: Jamey Porter MD Attending Dr: Dr. Hector Amaral MD Status: DEP ER Ordering Dr: Hector Amaral MD Date: 12/24/24 Location: ED Sex: M AA Admitted: Test Reason : OD/POST ARREST Blood Pressure : */* mmHG Vent. Rate : 90 BPM Atrial Rate : 90 BPM P-R Int : 150 ms QRS Dur : 134 ms QT Int : 470 ms P-R-T Axes : 89 49 39 degrees QTcB Int : 574 ms Critical Test Result: Long QTc Normal sinus rhythm Non-specific intra-ventricular conduction block Abnormal ECG Baselie artifact affects QT measurement Confirmed by Jamey Porter ([id number]), acquisition editor OLGA DAHL ([id number]) on 12/30/2024 12:59:32 PM Referred By: Confirmed By: Jamey Porter 12/30/24 1259 Date Jamey Porter MD CC: Dr. Hector Amaral MD; No Primary Care Physician Signed Normal [facility] Absolute lymphocyte countOrd ered By: Hector Amaral on 12-24-2024 Lymphocytes Auto (Unsp spec) [#/Vol] 1.88 10*3/uL 0.83-4.51 [facility] Absolute neutrophil countOrd ered By: Hector Amaral on 12-24-2024 Neutrophils (Bld) [#/Vol] 10.3 10*3/uL High 2.0-7.7 [facility] Alcohol, Blood (Medical)-Ser umon 12-24-2024 SERUM ETOH < 10.1 Normal <=10.0 [facility] Comment on above: Result Comment: This test is for medical purposes only. The legal definition of intoxication varies according to local law. Performed By: #### L 501.9100, L505.5000, L500.4050, L100.0100 #### [facility] [address] [place] [address], [id number] Amphetamine detection with 1 000 ng/mL as cutoffOrdered By: Hector Amaral on 12-24-2024 Amphetamines Screen method >1000 ng/mL Ql (U) Negative < 200 ng/mL [facility] Anion gap in Serum or Plasma Ordered By: Hector Amaral on 12-24-2024 Anion gap [Moles/Vol] 26 mmol/L High 5-15 [facility] Assessment of wrist artery p atency prior to arterial punctureOrdered By: Hector Amaral on 12-24-2024 Arterial patency Wrist artery --pre arterial puncture Positive [facility] Automated lymphocyte count a s percentage of total leukocytesOrdered By: Hector Amaral on 12-24-2024 Lymphocytes/100 WBC Auto (Unsp spec) 13.9 % Low 19-41 [facility] BLOOD GAS ARTERIALon 025 AMOUNT OF OXYGEN 80% Normal [facility] Comment on above: Performed By: #### L [id number] ####Director Consumer: SHAHLA WARREN ([phone])[facility])[address] [place] [address] Base excess Calc (Bld) [Moles/Vol] -8.3000 mmol/L Low -3.0-3.0 [facility] Comment on above: Performed By: #### L [id number] ####Director Consumer: SHAHLA WARREN ([phone])[facility])[address] [place] [address] CO2 [Moles/Vol] 19.8 mmol/L Low 23.0-27.0 [facility] Comment on above: Performed By: #### L AB76 ####Director Consumer: SHAHLA WARREN ([phone])[facility])[address] [place] [address] HCO3 (Bld) [Moles/Vol] 18.5 mmol/L Low 21.0-25.0 [facility] Comment on above: Performed By: #### L AB76 ####Director Consumer: SHAHLA WARREN ([phone])[facility])[address] [place] [address] Hemoglobin (Bld) [Mass/Vol] 15.9 g/dL Normal Screen only [facility] Comment on above: Performed By: #### L [id number] ####Director Consumer: SHAHLA WARREN ([phone])[facility])[address] [place] [address] OXYGEN SATURATION (%) IN ARTERIAL BLOOD 87.6 % Low 95.0-100.0 [facility] Comment on above: Performed By: #### L AB76 ####Director Consumer: SHAHLA WARREN ([phone])[facility])[address] [place] [address] PCO2 ARTERIAL 42.7 mm Hg Normal >35.0-<45.0 [facility] Comment on above: Performed By: #### L AB76 ####Director Consumer: SHAHLA WARREN ([phone])[facility] ([facility])[address] [place] [address] PH ARTERIAL 7.255 Low 7.350-7.450 [facility] Comment on above: Performed By: #### L AB76 ####Director Consumer: SHAHLA WARREN ([phone])[facility] ([facility])[address] [place] [address] PO2 ARTERIAL 57.9 mm Hg Low 80.0-100.0 [facility] Comment on above: Performed By: #### L AB76 ####Director Consumer: SHAHLA WARREN ([phone])[facility])[address] [place] [address] SOURCE OF OXYGEN Ventilator Normal [facility] Comment on above: Performed By: #### L AB76 ####Director Consumer: SHAHLA WARREN ([phone])[facility])[address] [place] [address] BUN/creatinine ratioOrdered By: Hector Amaral on 12-24-2024 Urea nitrogen/Creatinine [Mass ratio] 7.4 mg/mg Low 10-20 [facility] Basophil percentageOrdered B y: Hector Amaral on 12-24-2024 Basophils/100 WBC (Bld) 0.4 % 0-1 [facility] Bilirubin, totalOrdered By: Hector Amaral on 12-24-2024 Bilirubin [Mass/Vol] mg/dL 0.00-1.30 [facility] Blood Gases by CPSon 025 LINNEA TEST Positive Normal [facility] Comment on above: Performed By: #### M 100.2400, M100.2000 #### [facility] [address] [place], [address] Base excess Calc (Bld) [Moles/Vol] -17 mmol/L Low -2 to +2 [facility] Comment on above: Performed By: #### M 100.2400, #### [facility] [address] [place], [address] Blood Gas Type ART Normal [facility] Comment on above: Performed By: #### M 100.2400, #### [facility] [address] [place], [address] CO2 [Moles/Vol] 19 mmol/L Normal [facility] Comment on above: Performed By: #### M 100.2400, #### [facility] [address] [place], [address] FI02 100.0 Normal [facility] Comment on above: Performed By: #### M 100.2400, #### [facility] [address] [place], [address] HCO3 (Bld) [Moles/Vol] 16.7 mmol/L Low 22-26 [facility] Comment on above: Performed By: #### M 100.240, #### [facility] [address] [place], [address] Mode AC Normal [facility] Comment on above: Performed By: #### M 100.2400, #### [facility] [address] [place], [address] O2 Delivery Dev Adult Vent Normal [facility] Comment on above: Performed By: #### M 100.2400, #### [facility] [address] [place], [address] pCO2 89.5 mmHg Invalid Interpretation Code 35-45 [facility] Comment on above: Performed By: #### M 100.2400, #### [facility] [address] [place], [address] PEEP 5 Normal [facility] Comment on above: Performed By: #### M 100.2400, M1.1999 #### [facility] [address] [place], [address] pH (Bld) 6.88 [pH] Invalid Interpretation Code 7.35-7.45 [facility] Comment on above: Performed By: #### M 100.2400, .1999 #### [facility] [address] [place], [address] PO2 281 mmHG High 75-100 [facility] Comment on above: Performed By: #### M 100.2400, #### [facility] [address] [place], [address] Read Back By Yes Normal [facility] Comment on above: Performed By: #### M 100.2400, #### [facility] [address] [place], [address] Results To AR Normal [facility] Comment on above: Performed By: #### M 100.2400, #### [facility] [address] [place], [address] RR 16 Normal [facility] Comment on above: Performed By: #### M 100.2400, .1999 #### [facility] [address] [place], [address] SITE L Radial Normal [facility] Comment on above: Performed By: #### M 100.2400, #### [facility] [address] [place], [address] SO2 100 High 95-99 [facility] Comment on above: Performed By: #### M 100.2400, #### [facility] [address] [place], [address] Time Given 15:11:25 Normal [facility] Comment on above: Performed By: #### M 100.2400, M100.1999 #### [facility] [address] [place], [place], [address] Vt 450.0 mL Normal [facility] Comment on above: Performed By: #### M 100.2400, M100.1999 #### [facility] [address] [place], [place], [address] Blood base excess determinat ionOrdered By: Hector Amaral on 12-24-2024 Base excess Calc (BldV) [Moles/Vol] -17 mmol/L Low -2-2 [facility] Blood bicarbonate measuremen tOrdered By: Hector Amaral on 12-24-2024 HCO3 (Bld) [Moles/Vol] 16.7 mmol/L Low 22-26 [facility] Brain/Head without Contrasto n 12-24-2024 Brain/Head without Contrast [facility] Imaging Services [address] [place], [place] [address] Brain/Head without Contrast MR#: [id number] Acct: [id number] Name: CHELSEA COLE Rep #: [id number] : 1990 M 34 From: Ricki Victor MD PCP: Care Physician,No Primary Status: REG ER Study: Brain/Head without Contrast Date of Exam: 11/15 Exam# [id number] Ordering Dr: Hector Amaral MD PROCEDURE: BRAIN/HEAD WITHOUT CONTRAST 12/24/2024 REASON FOR EXAM: MENTAL STATUS CHANGE TECHNIQUE: Head CT without intravenous contrast. Coronal and Sagittal reconstruction series were provided. One or more dose reduction techniques were used (e.g., Automated exposure control, adjustment of the mA and/or kV according to patient size, use of iterative reconstruction technique. FINDINGS: Brain: Within normal limits for age CSF Spaces: Normal Sinuses/Mastoids: Clear at visualized levels Bones: Unremarkable. CT/Brain/Head without Contrast IMPRESSION: NORMAL NONCONTRAST HEAD CT. Reading Location: [id number] CC: Dr. Hector Amaral MD; No Primary Care Physician Nca Certified Concierge: Signed Normal [facility] CALCIUM, IONIZEDon CALCIUM IONIZED 3.90 mg/dL Low 4.30-5.20 [facility] Comment on above: Performed By: #### L AB54 ####Director Consumer: SHAHLA WARREN ([phone])[facility] ([facility])[address] [place] [address] PH, IONIZED CALCIUM 7.18 Low 7.31-7.46 [facility] Comment on above: Performed By: #### L AB54 ####Director Consumer: SHAHLA WARREN ([phone])[facility] ([facility])[address] [place] [address] CBC W/Diff, Automatedon Absolute Lymph 1.88 X10 3/uL Normal 0.83-4.51 [facility] Comment on above: Performed By: #### L 501.9100, L505.5000, L500.4050, L100.0100 #### [facility] [address] [place], [address] Absolute Neut 10.3 X10 3/uL High 2.0-7.7 [facility] Comment on above: Performed By: #### L 501.9100, L505.5000, L500.4050, L100.0100 #### [facility] [address] [place], [address] Basophils/100 WBC (Bld) 0.4 % Normal 0-1 [facility] Comment on above: Performed By: #### L 501.9100, L505.5000, L500.4050, L100.0100 #### [facility] [address] [place], [address] Eosinophils/100 WBC (Bld) 0.0 % Normal 0-5 [facility] Comment on above: Performed By: #### L 501.9100, L505.5000, L500.4050, L100.0100 #### [facility] [address] [place], [address] Erythrocyte distribution width (RBC) [Ratio] 12.8 % Normal 11.6-14.6 [facility] Comment on above: Performed By: #### L 501.9100, L505.5000, L500.4050, L100.0100 #### [facility] [address] [place], [address] Hematocrit (Bld) [Volume fraction] 41.6 % Normal 40-54 [facility] Comment on above: Performed By: #### L 501.9100, L505.5000, L500.4050, L100.0100 #### [facility] [address] [place], [address] Hemoglobin (Bld) [Mass/Vol] 13.8 g/dL Normal 13.0-16.5 [facility] Comment on above: Performed By: #### L 501.9100, L505.5000, L500.4050, L100.0100 #### [facility] [address] [place], [address] IG% 1.500 High 0.0-0.9 [facility] Comment on above: Result Comment: IG% - Immature Granulocytes (promyelocytes, myelocytes and metamyelocytes) > 1% indicates that a LEFT SHIFT is Present. Performed By: #### L 501.9100, L505.5000, L500.4050, L100.0100 #### [facility] [address] [place], [address] Lymphocytes/100 WBC (Bld) 13.9 % Low 19-41 [facility] Comment on above: Performed By: #### L 501.9100, L505.5000, L500.4050, L100.0100 #### [facility] [address] [place], [address] MCH (RBC) [Entitic mass] 30.5 pg Normal 27.0-32.0 [facility] Comment on above: Performed By: #### L 501.9100, L505.5000, L500.4050, L100.0100 #### [facility] [address] [place], [address] MCHC (RBC) [Mass/Vol] 33.2 g/dL Normal 32-36 [facility] Comment on above: Performed By: #### L 501.9100, L505.5000, L500.4050, L100.0100 #### [facility] [address] [place], [address] MCV (RBC) [Entitic vol] 91.8 fL Normal 80-94 [facility] Comment on above: Performed By: #### L 501.9100, L505.5000, L500.4050, L100.0100 #### [facility] [address] [place], [address] Monocytes/100 WBC (Bld) 7.9 % Normal 0-10 [facility] Comment on above: Performed By: #### L 501.9100, L505.5000, L500.4050, L100.0100 #### [facility] [address] [place], [address] Neutrophils/100 WBC (Bld) 76.3 % High 47-70 [facility] Comment on above: Performed By: #### L 501.9100, L505.5000, L500.4050, L100.0100 #### [facility] [address] [place], [address] Nucleated RBC (Bld) [#/Vol] 0.4 10*3/uL Normal 0-5 [facility] Comment on above: Performed By: #### L 501.9100, L505.5000, L500.4050, L100.0100 #### [facility] [address] [place], [address] Platelet mean volume (Bld) [Entitic vol] 8.8 fL Normal 6.2-12.0 [facility] Comment on above: Performed By: #### L 501.9100, L505.5000, L500.4050, L100.0100 #### [facility] [address] [place], [address] Platelets (Bld) [#/Vol] 181 10*3/uL Normal 150-450 [facility] Comment on above: Performed By: #### L 501.9100, L505.5000, L500.4050, L100.0100 #### [facility] [address] [place], [address] RBC (Bld) [#/Vol] 4.53 10*6/uL Low 4.6-6.2 [facility] Comment on above: Performed By: #### L 501.9100, L505.5000, L500.4050, L100.0100 #### [facility] [address] [place], [address] RDW SD 42.9 fl Normal 35.1-43.9 [facility] Comment on above: Performed By: #### L 501.9100, L505.5000, L500.4050, L100.0100 #### [facility] [address] [place], [address] WBC (Bld) [#/Vol] 13.5 10*3/uL High 4.4-11.0 [facility] Comment on above: Performed By: #### L 501.9100, L505.5000, L500.4050, L100.0100 #### [facility] [address] [place], [address] CBC WITH AUTO DIFFERENTIALon 12-24-2024 Basophils (Bld) [#/Vol] 0.0 10*3/uL Normal 0.0-0.2 [facility] Comment on above: Performed By: #### L [id number] ####Director Consumer: SHAHLA WARREN ([phone])[facility] ([facility])[address] [place] [address] Basophils/100 WBC (Bld) 0.4 % Normal 0.0-2.0 [facility] Comment on above: Performed By: #### L [id number] ####Director Consumer: SHAHLA WARREN ([phone])[facility])[address] [place] [address] Eosinophils (Bld) [#/Vol] 0.0 10*3/uL Normal 0.0-0.5 [facility] Comment on above: Performed By: #### L [id number] ####Director Consumer: SHAHLA WARREN ([phone])[facility])[address] [place] [address] Eosinophils/100 WBC (Bld) 0.0 % Normal 0.0-6.0 [facility] Comment on above: Performed By: #### L [id number] ####Director Consumer: SHAHLA WARREN ([phone])[facility])[address] [place] [address] Erythrocyte distribution width (RBC) [Ratio] 12.7 % Normal 11.5-15.0 [facility] Comment on above: Performed By: #### L [id number] ####Director Consumer: SHAHLA WARREN ([phone])[facility])[address] [place] [address] Hematocrit (Bld) [Volume fraction] 43.9 % Normal 40.0-52.0 [facility] Comment on above: Performed By: #### L [id number] ####Director Consumer: SHAHLA WARREN ([phone])[facility])[address] [place] [address] Hemoglobin (Bld) [Mass/Vol] 15.1 g/dL Normal 13.0-18.0 [facility] Comment on above: Performed By: #### L [id number] ####Director Consumer: SHAHLA WARREN ([phone])[facility])[address] [place] [address] IMMATURE GRANS % 1.7 % Normal 0.0-2.0 [facility] Comment on above: Performed By: #### L [id number] ####Director Consumer: SHAHLA WARREN ([phone])[facility])[address] [place] [address] IMMATURE GRANS ABSOLUTE 0.0 10*3/uL Normal <0.1 [facility] Comment on above: Performed By: #### L [id number] ####Director Consumer: SHAHLA WARREN ([phone])[address] IPF 2 Normal [facility] Comment on above: Performed By: #### L [id number] ####Director Consumer: SHAHLA WARREN ([phone])[facility])[address] [place] [address] Lymphocytes (Bld) [#/Vol] 0.5 10*3/uL Low 1.0-4.3 [facility] Comment on above: Performed By: #### L [id number] ####Director Consumer: SHAHLA WARREN ([phone])[facility])[address] [place] [address] Lymphocytes/100 WBC (Bld) 21.7 % Normal 15.0-45.0 [facility] Comment on above: Performed By: #### L [id number] ####Director Consumer: SHAHLA WARREN ([phone])[address] MCH (RBC) [Entitic mass] 30.4 pg Normal 26.0-34.0 [facility] Comment on above: Performed By: #### L [id number] ####Director Consumer: SHAHLA WARREN ([phone])[facility])[address] [place] [address] MCHC 34.4 % Normal 30.5-36.0 [facility] Comment on above: Performed By: #### L [id number] ####Director Consumer: SHAHLA WARREN ([phone])[facility] ([facility])[address] [place] [address] MCV (RBC) [Entitic vol] 88.3 fL Normal 77.0-99.0 [facility] Comment on above: Performed By: #### L [id number] ####Director Consumer: SHAHLA WARREN ([phone])[facility] ([facility])[address] [place] [address] Monocytes (Bld) [#/Vol] 0.1 10*3/uL Normal 0.0-0.9 [facility] Comment on above: Performed By: #### L [id number] ####Director Consumer: SHAHLA WARREN ([phone])[facility] ([facility])[address] [place] [address] Monocytes/100 WBC (Bld) 4.2 % Low 5.0-13.0 [facility] Comment on above: Performed By: #### L [id number] ####Director Consumer: SHAHLA WARREN ([phone])[facility] ([facility])[address] [place] [address] NEUTROPHILS ABSOLUTE 1.7 10*3/uL Low 1.8-7.5 [facility] Comment on above: Performed By: #### L [id number] ####Director Consumer: SHAHLA WARREN ([phone])[facility] ([facility])[address] [place] [address] Neutrophils/100 WBC (Bld) 72.0 % Normal 38.0-82.0 [facility] Comment on above: Performed By: #### L [id number] ####Director Consumer: SHAHLA WARREN ([phone])[facility] ([facility])[address] [place] [address] NRBC 0.8 /100 WBCs Normal 0.0-2.0 [facility] Comment on above: Performed By: #### L [id number] ####Director Consumer: SHAHLA WARREN ([phone])[facility])[address] [place] [address] Platelet mean volume (Bld) [Entitic vol] 9.1 fL Normal 9.0-12.7 [facility] Comment on above: Performed By: #### L [id number] ####Director Consumer: SHAHLA WARREN ([phone])[facility] ([facility])[address] [place] [address] Platelets (Bld) [#/Vol] 229 10*3/uL Normal 140-440 [facility] Comment on above: Performed By: #### L [id number] ####Director Consumer: SHAHLA WARREN ([phone])[facility])[address] [place] [address] RBC (Bld) [#/Vol] 4.97 10*6/uL Normal 4.40-5.90 [facility] Comment on above: Performed By: #### L [id number] ####Director Consumer: SHAHLA WARREN ([phone])[facility])[address] [place] [address] WBC (Bld) [#/Vol] 2.4 10*3/uL Low 3.6-10.7 [facility] Comment on above: Performed By: #### L [id number] ####Director Consumer: SHAHLA WARREN ([phone])[facility])[address] [place] [address] CKon 12-24-2024 CK [Catalytic activity/Vol] 56186 U/L High 30-185 [facility] Comment on above: Performed By: #### L AB62, LAB18, LAB17 ####Director Consumer: SHAHLA WARREN ([phone])[facility])[address] [place] [address] COMPREHENSIVE METABOLIC PANE Clifford 12-24-2024 Albumin [Mass/Vol] 3.3 g/dL Low 3.5-5.0 [facility] Comment on above: Performed By: #### Prem WISDOM, LAB18, LAB17 ####Director Consumer: SHAHLA WARREN ([phone])[facility])[address] [place] [address] ALP [Catalytic activity/Vol] 33 U/L Low 40-150 [facility] Comment on above: Performed By: #### Prem WISDOM, LAB18, LAB17 ####Director Consumer: SHAHLA WARREN ([phone])[facility] ([facility])[address] [place] [address] ALT [Catalytic activity/Vol] 414 U/L High <40 [facility] Comment on above: Performed By: #### Prem WISDOM, LAB18, LAB17 ####Director Consumer: SHAHLA WARREN ([phone])[facility] ([facility])[address] [place] [address] Anion gap [Moles/Vol] 8 mmol/L Normal 3-13 [facility] Comment on above: Performed By: #### Prem WISDOM, LAB18, LAB17 ####Director Consumer: SHAHLA WARREN ([phone])[facility] ([facility])[address] [place] [address] AST [Catalytic activity/Vol] 659 U/L High <34 [facility] Comment on above: Performed By: #### Prem WISDOM, LAB18, LAB17 ####Director Consumer: SHAHLA WARREN ([phone])[facility] ([facility])[address] [place] [address] Bilirubin [Mass/Vol] 0.3 mg/dL Normal <1.2 [facility] Comment on above: Performed By: #### Prem WISDOM, LAB18, LAB17 ####Director Consumer: SHAHLA WARREN ([phone])[facility])[address] [place] [address] Calcium [Mass/Vol] 7.2 mg/dL Low 8.4-10.2 [facility] Comment on above: Performed By: #### L AB62, LAB18, LAB17 ####Director Consumer: SHAHLA WARREN ([phone])[facility] [place] [address] Chloride [Moles/Vol] 112 mmol/L High 98-107 [facility] Comment on above: Performed By: #### Prem ABAidan, LAB18, LAB17 ####Director Consumer: SHAHLA WARREN ([phone])[facility] [place] [address] CO2 [Moles/Vol] 16 mmol/L Low 22-29 [facility] Comment on above: Performed By: #### Prem WISDOM, LAB18, LAB17 ####Director Consumer: SHAHLA WARREN ([phone])[facility] ([facility])[address] [place] [address] Creatinine [Mass/Vol] 1.80 mg/dL High 0.72-1.25 [facility] Comment on above: Performed By: #### Prem WISDOM, LAB18, LAB17 ####Director Consumer: SHAHLA WARREN ([phone])[facility] ([facility])[address] [place] [address] GLOMERULAR FILTRATION RATE ML/MIN/1.73 SQ M.PREDICTED 49.7 mL/min/1.73m*2 Low >60.0 [facility] Comment on above: Result Comment: Calc ulation based on the Chronic Kidney Disease Epidemiology Collaboration (CKD-EPI) equation refit without adjustment for race Performed By: #### Prem WISDOM, LAB18, LAB17 ####Director Consumer: SHAHLA WARREN ([phone])[facility] ([facility])[address] [place] [address] Glucose [Mass/Vol] 82 mg/dL Normal 74-100 [facility] Comment on above: Performed By: #### Prem AB62, LAB18, LAB17 ####Director Consumer: SHAHLA WARREN ([phone])[facility])[address] [place] [address] Potassium [Moles/Vol] 5.6 mmol/L High 3.5-5.1 [facility] Comment on above: Result Comment: [facility] potassium values may be up to 0.5 mmol/L lower than serum values. Performed By: #### L AB62, LAB18, LAB17 ####Director Consumer: SHAHLA WARREN ([phone])[facility])[address] [place] [address] Protein [Mass/Vol] 5.6 g/dL Low 6.4-8.3 [facility] Comment on above: Performed By: #### L AB62, LAB18, LAB17 ####Director Consumer: SHAHLA WARREN ([phone])[facility])[address] [place] [address] Sodium [Moles/Vol] 136 mmol/L Normal 136-145 [facility] Comment on above: Performed By: #### Prem WEBER62, LAB18, LAB17 ####Director Consumer: SHAHLA WARREN ([phone])[facility] ([facility])[address] [place] [address] Urea nitrogen [Mass/Vol] 24 mg/dL High 8-21 [facility] Comment on above: Performed By: #### Prem AB62, LAB18, LAB17 ####Director Consumer: SHAHLA WARREN ([phone])[facility])[address] [place] [address] Albumin [Mass/Vol] 3.9 g/dL Normal 3.5-5.0 [facility] Comment on above: Performed By: #### L AB113, BDW688, EVA96969, GLY137, [id number], NSJ578, LAB17, LAB46 ####Director Consumer: SHAHLA WARREN ([phone])[facility])[address] [place] [address] ALP [Catalytic activity/Vol] 44 U/L Normal 40-150 [facility] Comment on above: Performed By: #### L AB113, TFG242, BHZ91641, JQD097, [id number], HMH776, LAB17, LAB46 ####Director Consumer: SHAHLA WARREN ([phone])[facility] ([facility])[address] [place] [address] ALT [Catalytic activity/Vol] 499 U/L High <40 [facility] Comment on above: Performed By: #### L AB113, YTD676, IXG85568, ZPR034, [id number], DAW910, LAB17, LAB46 ####Director Consumer: SHAHAL WARREN ([phone])[facility] ([facility])[address] [place] [address] Anion gap [Moles/Vol] 10 mmol/L Normal 3-13 [facility] Comment on above: Performed By: #### L AB113, TXE989, KRT52369, BXM822, [id number], AFR985, LAB17, LAB46 ####Director Consumer: SHAHLA WARREN ([phone])[facility])[address] [place] [address] AST [Catalytic activity/Vol] 645 U/L High <34 [facility] Comment on above: Performed By: #### L AB113, KLS918, YQQ88142, OKP581, [id number], LJI953, LAB17, LAB46 ####Director Consumer: SHAHLA WARREN ([phone])[facility] ([facility])[address] [place] [address] Bilirubin [Mass/Vol] 0.3 mg/dL Normal <1.2 [facility] Comment on above: Performed By: #### L AB113, YYJ925, TBD93391, EGH873, [id number], QLM579, LAB17, LAB46 ####Director Consumer: SHAHLA WARREN ([phone])[facility] ([facility])[address] [place] [address] Calcium [Mass/Vol] 7.8 mg/dL Low 8.4-10.2 [facility] Comment on above: Performed By: #### L AB113, APC389, DJW00549, JMV204, [id number], NHM951, LAB17, LAB46 ####Director Consumer: SHAHLA WARREN ([phone])[facility] [place] [address] [place] Chloride [Moles/Vol] 108 mmol/L High 98-107 [facility] Comment on above: Performed By: #### L AB113, JFV892, UPW35133, OWA809, [id number], DSD358, LAB17, LAB46 ####Director Consumer: SHAHLA WARREN ([phone])[facility])[address] [place] [address] CO2 [Moles/Vol] 18 mmol/L Low 22-29 [facility] Comment on above: Performed By: #### L AB113, VOQ061, DEL04138, VVX063, [id number], SRQ021, LAB17, LAB46 ####Director Consumer: SHAHLA WARREN ([phone])[facility] ([facility])[address] [place] [address] Creatinine [Mass/Vol] 2.14 mg/dL High 0.72-1.25 [facility] Comment on above: Performed By: #### L AB113, CGN957, NKG91619, UHE965, [id number], JXL257, LAB17, LAB46 ####Director Consumer: SHAHLA WARREN ([phone])[facility])[address] [place] [address] GLOMERULAR FILTRATION RATE ML/MIN/1.73 SQ M.PREDICTED 40.4 mL/min/1.73m*2 Low >60.0 [facility] Comment on above: Result Comment: Calc ulation based on the Chronic Kidney Disease Epidemiology Collaboration (CKD-EPI) equation refit without adjustment for race Performed By: #### L AB113, TKW379, TZU98770, PBX306, [id number], PUK648, LAB17, LAB46 ####Director Consumer: SHAHLA WARREN ([phone])[facility])[address] [place] [address] [place] Glucose [Mass/Vol] 73 mg/dL Low 74-100 [facility] Comment on above: Performed By: #### L AB113, ILM986, FUY83914, YPH837, [id number], IDC191, LAB17, LAB46 ####Director Consumer: SHAHLA WARREN ([phone])[facility])[address] [place] [address] Potassium [Moles/Vol] 6.5 mmol/L Critically high 3.5-5.1 [facility] Comment on above: Result Comment: [facility] potassium values may be up to 0.5 mmol/L lower than serum values. Performed By: #### L AB113, YCU035, PAH30531, XPB339, [id number], DBY308, LAB17, LAB46 ####Director Consumer: SHAHLA WARREN ([phone])[facility])[address] [place] [address] Protein [Mass/Vol] 6.7 g/dL Normal 6.4-8.3 [facility] Comment on above: Performed By: #### L AB113, MJQ838, CEL36558, ASC977, OYQ4144278, ITP770, LAB17, LAB46 ####Director Consumer: SHAHLA WARREN ([phone])[facility] ([facility])[address] [place] [address] Sodium [Moles/Vol] 136 mmol/L Normal 136-145 [facility] Comment on above: Performed By: #### L AB113, SWJ154, CSZ04620, ZRN169, [id number], BAZ629, LAB17, LAB46 ####Director Consumer: SHAHLA WARREN ([phone])[facility])[address] [place] [address] [place] Urea nitrogen [Mass/Vol] 23 mg/dL High 8-21 [facility] Comment on above: Performed By: #### L AB113, WME081, ZTH86583, YMF277, [id number], POM338, LAB17, LAB46 ####Director Consumer: SHAHLA WARREN ([phone])[facility])[address] [place] [address] Carbon dioxide, total [Moles /volume] in Central venous bloodOrdered By: Hector Amaral on 12-24-2024 CO2 [Moles/Vol] 14.7 mmol/L Low 21.0-32.0 [facility] Chest 1 View (Portable)on Chest 1 View (Portable) [facility] Imaging Services [address] [place], [place] [address] Chest 1 View (Portable) MR#: [id number] Acct: [id number] Name: CHELSEA COLE Rep #: [id number] : 1990 M 34 From: Boni spencer MD PCP: Care Physician,No Primary Status: REG ER Study: Chest 1 View (Portable) Date of Exam: 12/24/24 Exam# [id number] Ordering Dr: Hector Amaral MD PROCEDURE: CHEST 1 VIEW (PORTABLE) 12/24/2024 REASON FOR EXAM: ET TUBE PLACEMENT TECHNIQUE: Frontal view of the chest. COMPARISON: 12/24/2024 FINDINGS: Hardware: Interval retraction endotracheal tube, with the tip now 2.7 cm from the claire. Stable feeding tube. Heart: Heart size is mildly enlarged. Lungs: Significant interval improvement left bridger thorax aeration, with atelectasis in the lower lobe. Stable to slightly worsened airspace opacities in the right lower lobe. No pneumothorax. Bones: The bones are unremarkable. Other: RAD/Chest 1 View (Portable) IMPRESSION: See above Reading Location: [facility] CC: Dr. Hector Amaral MD; No Primary Care Physician Nca Certified Concierge: Signed Normal [facility] Chest 1 View (Portable) [facility] Services [address] [place], [place] [address] Chest 1 View (Portable) MR#: [id number] Acct: [id number] Name: CHELSEA COLE Rep #: [id number] : 1990 M 34 From: Ricki Victor MD PCP: Care Physician,No Primary Status: REG ER Study: Chest 1 View (Portable) Date of Exam: 12/24/24 Exam# [id number] Ordering Dr: Hector Amaral MD PROCEDURE: CHEST 1 VIEW (PORTABLE) 12/24/2024 REASON FOR EXAM: POSTINTUBATION BY EMS TECHNIQUE: Frontal view of the chest. FINDINGS: Hardware: Endotracheal tube with the tip 3 cm beyond the claire in the right mainstem bronchus. Nasogastric tube with the tip below the diaphragm. Heart: Cardiac and mediastinal contours are stable. Lungs: Opacification of the left hemithorax consistent with left lung collapse. Bones: The bones are unremarkable. Other: RAD/Chest 1 View (Portable) IMPRESSION: Endotracheal tube with the tip approximately 3 cm past the claire likely in the right mainstem bronchus with left lung collapse. Nasogastric tube with the tip below the diaphragm. Reading Location: [id number] CC: Dr. Hector Amaral MD; No Primary Care Physician Nca Certified Concierge: Signed Normal [facility] Chloride assayOrdered By: Jamel Amaral on 12-24-2024 Chloride [Moles/Vol] 100 mmol/L 98-108 [facility] Comprehensive Metabolic Prof ilon 12-24-2024 AST [Catalytic activity/Vol] 324 U/L High <=37 [facility] Comment on above: Performed By: #### L 501.9100, L505.5000, L500.4050, L100.0100 #### [facility] [address] [facility] [place], [address] ETHANOLon 12-24-2024 ETHANOL IN SER/PLAS <10 Normal <10 [facility] Comment on above: Result Comment: DARIO Wylie COMMENTS:PLASTICS REPAIRER depression is seen >100 mg/dL.NOTE: This result is for medical treatment only. Analysis performed using non-forensic procedures. Performed By: #### L AB113, FBO836, QVT36863, NVC063, [id number], TVX252, LAB17, LAB46 ####Director Consumer: SHAHLA WARREN ([phone])[facility] ([facility] Emergency Department Summary on 12-24-2024 Emergency Department Summary [facility] Medical Records Department [address] [place] [address] Emergency Department Summary 12/24/24 MR#: [id number] Acct: [id number] Name: CHELSEA COLE Rep #: [id number] : 1990 34 From: Hector Amaral MD PCP: Care Physician,No Primary Status:REG ER Location: ED HPI History of Present Illness Chief Complaint: Overdose Narrative Narrative: History and physical limited secondary to patient condition, intubation. According to EMS and to police, patient had a significant other who awoke and noticed that he was unresponsive. Police report that patient has history of heavy alcohol use, but no drug use. Upon EMS arrival, bystanders stated that he had a pulse, but when they checked he was pulseless. He was found to be in ventricular fibrillation so he was defibrillated at 120 J into asystole. EMS reports drooling IO, as well as obtaining IV access. They performed CPR for 12 minutes and 2 rounds of epinephrine were given prior to return of spontaneous circulation. They did note that he had a low blood pressure afterwards, as well as low blood sugar. They administered D10, and had intubated the patient. According to police, significant other stated that he has a history of heart problems that had not necessarily been addressed. PFSH PFSH Allergy/AdvReac Type Severity Reaction Status Date / Time barium sulfate Allergy Unknown Unknown Verified 12/24/24 14:45 Penicillins Allergy Unknown unknown Verified 12/24/24 14:45 Social History Smoking Status: Current every day smoker ROS ROS ED ROS Narrative Unable to obtain from patient secondary to patient condition. Review of Systems ROS Unobtainable: due to endotracheal tube EXAM Physical Exam Narrative Exam Narrative: GCS 3 T. Unresponsive to pain. Pupils fixed and dilated with no corneal reflex. Positive agonal respirations. Cardiovascular examination regular rate and rhythm. Palpable radial pulse. Abdomen soft and nontender without rigidity. No response to pain. Const Vital Signs: 12/24/24 14:32 12/24/24 14:34 12/24/24 14:59 Temperature 88.4 F L 89.2 F L Temperature Source Core Core Pulse Rate 69 94 Respiratory Rate 14 17 Respiratory Pattern Blood Pressure 94/58 L 98/58 L 130/103 H Blood Pressure Mean 70 71 112 Pulse Ox 100 100 Oxygen Delivery Method Mechanical Ventilator Mechanical Ventilator Fraction of Inspired Oxygen (FIO2) 12/24/24 15:05 12/24/24 15:30 12/24/24 15:30 Temperature 89.6 F L Temperature Source Core Pulse Rate 73 91 Respiratory Rate 25 H 20 H Respiratory Pattern Normal Blood Pressure 113/75 Blood Pressure Mean 87 Pulse Ox 100 86 Oxygen Delivery Method Mechanical Ventilator Fraction of Inspired Oxygen (FIO2) 100 50 12/24/24 16:00 Temperature Temperature Source Pulse Rate Respiratory Rate Respiratory Pattern Blood Pressure 94/70 Blood Pressure Mean 78 Pulse Ox 93 Oxygen Delivery Method Mechanical Ventilator Fraction of Inspired Oxygen (FIO2) MDM MDM MDM Narrative Medical decision making narrative: Concern is for cardiac arrest and brain status post arrest. Patient is hypothermic. Although he has spontaneous return of circulation, comprehensive for workup will be pursued. After IV fluid bolus, patient is maintaining his blood pressure. Patient started on Sun hugger. Warmed fluids were also administered. I reviewed his laboratory work and he has elevated white count at 13.5 with hemoglobin 13.8, hematocrit 41.6, platelet count 181. Potassium low at 2.9 which will be replaced. BUN of 23 with creatinine 3.06 consistent with acute kidney injury. ALT is elevated at 355, AST elevated at 324 with AST pending. This may be from shock liver. High-sensitivity troponin also elevated at 662 which I think is most likely from his cardiac arrest. Urine for drugs of abuse is negative. Alcohol level is negative as well. ABG was obtained and in review he has a pH of 6.87 with PCO2 of 89 and PO2 of 280. His rate was increased from 16 to [address] of the brain was obtained and results pending. On my independent review, I see no evidence of acute hemorrhage. In discussion with the patient's family, they would like him transferred to a tertiary care center. Additionally, critical care medicine is not available here currently, only through telemedicine. I discussed patient with [facility] And they currently have a waiting list. I then contacted [employer]. EKG was obtained and interpreted by myself independently as normal sinus rhythm at 90 bpm with QTc of 574. No acute ST changes. No STEMI. Patient admitted and bated in the field by EMS. On review/independent interpretation of (more content not included)... Normal [facility] Eosinophil percentageOrdered By: Hector Amaral on 12-24-2024 Eosinophils/100 WBC (Bld) 0.0 % 0-5 [facility] Erythrocyte distribution wid th ratioOrdered By: Hector Amaral on 12-24-2024 Erythrocyte distribution width (RBC) [Ratio] 12.8 % 11.6-14.6 [facility] Erythrocyte distribution wid th standard deviationOrdered By: Hector Amaral on 12-24-2024 Erythrocyte distribution width (RBC) [Ratio] 42.9 fl 35.1-43.9 [facility] Glomerular filtration rate ( GFR) estimation/1.73 sq m using serum, plasma, or whole bOrdered By: Hector Amaral on 12-24-2024 GFR/1.73 sq M.predicted among non-blacks MDRD (S/P/Bld) [Vol rate/Area] 26 mL/min/{1.73_m2} Low >60 [facility] Comment on above: mL/min/1.73m2 CKD-EP I Creatinine Equation (2020) [facility] deOrdered By: Hector Amaral on 12-24-2024 Glucose [Mass/Vol] 84 mg/dL 74-106 [facility] Comment on above: MANAGEMENT OF PATIEN T CARE PER NURSING PROTOCOL Gram stainOrdered By: Hector delgado on 12-24-2024 Microscopic observation Gram stain Nom (Unsp spec) [facility] HEPATITIS PANEL, ACUTEon HCV Ab IA Ql Not detected Normal Not Detected [facility] Comment on above: Result Comment: Bebe ents with DETECTED Hepatitis C Ab results should have a new specimen submitted for supplemental testing with a Hepatitis C Quantitative RNA assay (viral load), if clinically indicated. Performed By: #### L AB551, [id number] ####Director Consumer: SHAHLA WARREN ([phone])[facility] ([facility])[address] [place] [address] HEPATITIS A VIRUS AB, IGM Not detected Normal Not Detected [facility] Comment on above: Performed By: #### L AB551, [id number] ####Director Consumer: SHAHLA WARREN ([phone])[facility] ([facility])[address] [place] [address] HEPATITIS B VIRUS CORE IGM AB Not detected Normal Not Detected [facility] Comment on above: Performed By: #### L AB551, [id number] ####Director Consumer: SHAHLA WARREN ([phone])[facility])[address] [place] [address] HEPATITIS B VIRUS SURFACE AG Not detected Normal Not Detected [facility] Comment on above: Performed By: #### L AB551, [id number] ####Director Consumer: SHAHLA WARREN ([phone])[facility])[address] [place] [address] HIGH SENSITIVITY TROPONIN, S ERIAL BASELINEon 12-24-2024 TROPONIN HS SERIAL BASELINE 1053 ng/L Critically high <=35 [facility] Comment on above: Result Comment: In i ndividuals presenting with symptoms > 2h, a baseline troponin <= 5 ng/L suggests acutecardiac injury is unlikely and further serial testing is generally not indicated. Performed By: #### L AB113, [id number], [id number], [id number], [id number], UPZ555, LAB17, LAB46 ####Director Consumer: SHAHLA WARREN ([phone])[facility])[address] [place] [address] HIGH SENSITIVITY TROPONIN, S ERIAL, SECOND TESTon 12-24-2024 2H TROPONIN HS (SERIAL 2ND TROPONIN) 1633 ng/L Critically high <=35 [facility] Comment on above: Result Comment: Risi ng or falling troponin delta greater than 15 ng/L as compared to baseline value issignificant for acute cardiac injury. Performed By: #### L [id number] ####Director Consumer: SHAHLA WARREN ([phone])[facility])[address] [place] [address] HIV1,2 COMBO ANTIGEN-ANTIBOD Y SCREENon 12-24-2024 HIV 1,2 COMBO ANTIGEN/ANTIBODY Non-Reactive Normal Nonreactive [facility] Comment on above: Result Comment: The specimen was non-reactive for HIV-1 and HIV-2 antibodies and p24 antigen using an FDA-cleared 4th generation HIV test. Based on this non-reactive screen result, further reflexive testing was not indicated and was, therefore, not performed. Performed By: #### L AB551, [id number] ####Director Consumer: SHAHLA WARREN ([phone])[facility] ([facility] Hematocrit Auto (Bld) [Volum e fraction]Ordered By: Hector Amaral on 12-24-2024 Hematocrit (Bld) [Volume fraction] 41.6 % 40-54 [facility] Hemoglobin measurementOrdere d By: Hector Amaral on 12-24-2024 Hemoglobin (Bld) [Mass/Vol] 13.8 g/dL 13.0-16.5 [facility] Immature granulocytes/100 WB C Auto (Bld)Ordered By: Hector Amaral on 12-24-2024 Immature granulocytes/100 WBC (Bld) 1.500 % High 0.0-0.9 [facility] Comment on above: IG% - Immature Granu locytes (promyelocytes, myelocytes and metamyelocytes) > 1% indicates that a LEFT SHIFT is Present. L499.0042on 12-24-2024 Trop T High Sen 455 ng/L Invalid Interpretation Code <=22 [facility] Comment on above: Result Comment: Crit ical Result(s) Called at: 1818 by: JOHN REYES TO TIFFANY KIMBLE??Results read back by same. Performed By: #### M 100.2400, M1.1999 #### [facility] [address] [place], [address] L499.0043on 12-24-2024 Trop T High Sen Normal <=22 [facility] Comment on above: Result Comment: Canc elled via OM: Order cancelled - Patient discharged Performed By: #### M 100.2400, M100.1999 #### [facility] [address] [place], [address] L501.4021on 12-24-2024 Trop T High Sen 662 ng/L Invalid Interpretation Code <=22 [facility] Comment on above: Result Comment: Crit ical Result(s) Called at 12/24/2024-15:17 by: Thee Day to Deonna Silveira??Results read back by same. Performed By: #### M 100.2400, M100.1999 #### [facility] [place], [address] LACTIC ACID WITH REFLEXon Lactate [Moles/Vol] 3.6 mmol/L High 0.5-2.2 [facility] Comment on above: Performed By: #### L [id number] ####Director Consumer: SHAHLA WARREN ([phone])[facility] ([facility])[address] [place] [address] LIPID PANELon 12-24-2024 Cholesterol [Mass/Vol] 166 mg/dL Normal <200 [facility] Comment on above: Order Comment: If no t done in the last six months. Performed By: #### L AB62, LAB18, LAB17 ####Director Consumer: SHAHLA WARREN ([phone])[facility] ([facility])[address] [place] [address] Cholesterol in HDL [Mass/Vol] 40 mg/dL Low >=60 [facility] Comment on above: Order Comment: If no t done in the last six months. Performed By: #### L AB62, LAB18, LAB17 ####Director Consumer: SHAHLA WARREN ([phone])[facility] ([facility])[address] [place] [address] Cholesterol.total/Chol esterol in HDL [Mass ratio] 4 {ratio} Normal [facility] Comment on above: Order Comment: If no t done in the last six months. Result Comment: Ref Range:< 3 Low Risk for CHD3-6 Mod Risk for CHD> 6 High Risk for CHD Performed By: #### L AB62, LAB18, LAB17 ####Director Consumer: SHAHLA WARRNE ([phone])[facility])[address] [place] [address] LOW DENSITY LIPOPROTEIN 103 mg/dL High 0-<100 [facility] Comment on above: Order Comment: If no t done in the last six months. Performed By: #### L AB62, LAB18, LAB17 ####Director Consumer: SHAHLA WARREN ([phone])[facility])[address] [place] [address] NON-HDL CHOLESTEROL, CALCULATED 126 Normal <130 [facility] Comment on above: Order Comment: If no t done in the last six months. Performed By: #### L AB62, LAB18, LAB17 ####Director Consumer: SHAHLA WARREN ([phone])[facility])[address] [place] [address] Triglyceride [Mass/Vol] 113 mg/dL Normal <150 [facility] Comment on above: Order Comment: If no t done in the last six months. Performed By: #### L AB62, LAB18, LAB17 ####Director Consumer: SHAHLA WARREN ([phone])[facility])[address] [place] [address] VERY LOW DENSITY LIPOPROTEIN, CALCULATED 23 mg/dL Normal <=30 [facility] Comment on above: Order Comment: If no t done in the last six months. Performed By: #### L AB62, LAB18, LAB17 ####Director Consumer: SHAHLA WARREN ([phone])[facility])[address] [place] [address] Laboratory - Chemistry and C hemistry - challengeOrdered By: Hector Amaral on 12-24-2024 AST [Catalytic activity/Vol] 324 U/L High <38 [facility] MAGNESIUMon 12-24-2024 Magnesium [Mass/Vol] 2.1 mg/dL Normal 1.6-2.6 [facility] Comment on above: Result Comment: ORDE R COMMENTS:Higher values can be expected in females during menses. Performed By: #### L AB113, QBD583, [id number], DDR213, [id number], IRD348, LAB17, LAB46 ####Director Consumer: SHAHLA WARREN ([phone])[facility])[address] [place] [address] MCV (mean corpuscular volume ) determinationOrdered By: Hector Amaral on 12-24-2024 MCV (RBC) [Entitic vol] 91.8 fL 80-94 [facility] MRSA BY PCRon 12-24-2024 MRSA BY PCR Normal [facility] Comment on above: Performed By: #### L [id number] ####Director Consumer: SHAHLA WARREN ([phone])[facility])[address] [place] [address] Mean corpuscular hemoglobin (MCH) determinationOrdered By: Hector Galavizodicharpreet on 12-24-2024 MCH (RBC) [Entitic mass] 30.5 pg 27.0-32.0 [facility] Mean corpuscular hemoglobin concentration (MCHC) determinationOrdered By: Hector Reodica on 12-24-2024 MCHC (RBC) [Mass/Vol] 33.2 g/dL 32-36 [facility] Mean platelet volume determi nationOrdered By: Hector Reodica on 12-24-2024 Platelet mean volume (Bld) [Entitic vol] 8.8 fL 6.2-12.0 [facility] Measurement, pHOrdered By: A ema Dalton on 12-24-2024 pH (Unsp spec) 6.88 [pH] Low 7.35-7.45 [facility] Microbial respiratory cultur eOrdered By: Hector Galavizodica on 12-24-2024 Microorganism identified Cx Nom (Unsp spec) or Staphylococcus aureus isolated. [facility] Monocyte percentageOrdered B y: Hector Galavizodica on 12-24-2024 Monocytes/100 WBC (Bld) 7.9 % 0-10 [facility] NT PRO BNPon 12-24-2024 Natriuretic peptide B (Bld) [Mass/Vol] 466 pg/mL High <125 [facility] Comment on above: Performed By: #### L AB113, [id number], [id number], LAP988, [id number], ZWA065, LAB17, LAB46 ####Director Consumer: SHAHLA WARREN ([phone])[facility])[address] [place] [address] Neutrophil percentageOrdered By: Hector Galavizodica on 12-24-2024 Neutrophils/100 WBC (Bld) 76.3 % High 47-70 [facility] No Panel InformationOrdered By: Hector Amaral on 12-24-2024 Bedside Blood Gas PEEP 5 [facility] Bld Gas Crit Called To/Read Back By Yes [facility] Blood Gas Notified Time 15:11:25 [facility] Blood Gas Notified Whom AR [facility] Blood Gas Respiration Rate 16 [facility] Blood Gas Sample Site L Radial [facility] Blood Gas Specimen Type ART [facility] Blood Gas Tidal Volume 450.0 mL [facility] Blood Gas Vent Mode AC Woost er [facility] Oxygen Delivery Device Adult Vent [facility] Urine Buprenorphine Qualitative Negative < 200 ng/mL [facility] Urine Oxycodone Screen Negative < 100 ng/mL [facility] Nucleated red blood cell per centageOrdered By: Hector Amaral on 12-24-2024 Nucleated RBC/100 WBC (Bld) [Ratio] 0.4 % 0-5 [facility] OSMOLALITY, SERUMon 12-25-19 25 OSMOLALITY, SERUM 300 mOsm/kg Normal 280-300 [facility] Comment on above: Performed By: #### L [id number] ####Director Consumer: SHAHLA WARREN ([phone])[place] [address] [place] PHOSPHORUSon 12-24-2024 Phosphate [Mass/Vol] 3.9 mg/dL Normal 2.3-4.7 [facility] Comment on above: Performed By: #### L AB113, OQX320, [id number], GLE342, [id number], QBO103, LAB17, LAB46 ####Director Consumer: SHAHLA WARREN ([phone])[facility])[address] [place] [address] [place] PNEUMONIA PCR PANELon 2024 PNEUMONIA PCR PANEL Normal [facility] Comment on above: Performed By: #### L [id number] ####Director Consumer: SHAHLA WARREN ([phone])[facility])[address] [place] [address] PROCALCITONIN TESTon 05-03-2 025 PROCALCITONIN 3.32 ng/mL High <0.07 [facility] Comment on above: Result Comment: DARIO Wylie COMMENTS:PCT <0.50 = Low risk of severe sepsis and/or septic shock.PCT >2.00 = High risk of severe sepsis and/or septic shock. Performed By: #### L AB113, DKG817, [id number], FDA964, [id number], FKN023, LAB17, LAB46 ####Director Consumer: SHAHLA WARREN ([phone])[facility] [place] [address] PROTIME AND APTTon aPTT Coag (Bld) [Time] 22.8 s Normal 20.0-30.5 [facility] Comment on above: Performed By: #### L [id number] ####Director Consumer: SHAHLA WARREN ([phone])[facility])[address] [place] [address] INR Coag (PPP) [Relative time] 1.2 {INR} High 0.9-1.1 [facility] Comment on above: Result Comment: John mmended Anticoagulant Therapy: SEE BELOW----- INR of 2.0 - 3.0 : - Prophylaxis of Venous Thrombosis (high-risk surgery) - Treatment of Venous Thrombosis - Treatment of Pulmonary Embolism (Includes tissue heart valves, Acute Myocardial Infarction to prevent systemic embolism, Valvular Heart Disease, and Atrial Fibrillation)----- INR of 2.5 - 3.5 : - Mechanical Prosthetic Valves (high risk) - If oral anticoagulant therapy is used to prevent Myocardial Infarction Performed By: #### L [id number] ####Director Consumer: SHAHLA WARREN ([phone])[facility] ([facility])[address] [place] [address] PT Coag (PPP) [Time] 12.4 s High 9.0-12.0 [facility] Comment on above: Performed By: #### L [id number] ####Director Consumer: SHAHLA WARREN ([phone])[facility])[address] [place] [address] Platelet countOrdered By: Jamel Amaral on 12-24-2024 Platelets (Bld) [#/Vol] 181 10*3/uL 150-450 [facility] Potassium measurement (mass/ volume)Ordered By: Hector Amaral on 12-24-2024 Potassium (Unsp spec) [Mass/Vol] 2.9 mmol/L Low 3.3-5.1 [facility] Progress Noteon 12-24-2024 Progress Note Normal [facility] Normal [facility] Progress Note Normal [facility] Progress Note Normal [facility] Quantitative urine opiates m easurementOrdered By: Hector Amaral on 12-24-2024 Opiates Ql (U) Negative < 300 ng/mL [facility] RBC Auto (Bld) [#/Vol]Ordere d By: Hector Amaral on 12-24-2024 RBC (Bld) [#/Vol] 4.53 10*6/uL Low 4.6-6.2 [facility] RESPIRATORY CULTURE AND STAI Non 12-24-2024 RESPIRATORY CULTURE AND STAIN Normal [facility] Comment on above: Performed By: #### L [id number] ####Director Consumer: SHAHLA WARREN ([phone])[facility])[address] [place] [address] RESPIRATORY PATHOGENS PANEL BY PCRon 12-24-2024 RESPIRATORY PATHOGENS PANEL BY PCR Normal [facility] Comment on above: Performed By: #### L [id number] ####Director Consumer: SHAHLA WARREN ([phone])[facility])[address] [place] [address] Screening urine fentanyl kris surementOrdered By: Hector Amaral on 12-24-2024 fentaNYL Screen Ql (U) Negative [facility] Serum creatinine measurement (mass/volume)Ordered By: Hector Amaral on 12-24-2024 Creatinine [Mass/Vol] 3.06 mg/dL High 0.70-1.20 [facility] Serum globulin measurementOr dered By: Hector Amaral on 12-24-2024 Globulin (S) [Mass/Vol] 2.6 g/dL 2.2-4.2 [facility] Serum glucose measurement (m ass/volume)Ordered By: Hector Amaral on 12-24-2024 Glucose [Mass/Vol] 96 mg/dL 70-99 [facility] Serum or plasma alanine nichole otransferase (ALT) measurementOrdered By: Hector Amaral on 12-24-2024 ALT [Catalytic activity/Vol] 355 U/L High <47 [facility] Serum or plasma albumin anisha urement (mass/volume)Ordered By: Hector Amaral on 12-24-2024 Albumin [Mass/Vol] 4.5 g/dL 3.5-5.0 [facility] Serum or plasma albumin/glob ulin mass ratioOrdered By: Hector Amaral on 12-24-2024 Albumin/Globulin [Mass ratio] 1.7 {ratio} 0.9-2.4 [facility] Serum or plasma alkaline tess sphatase measurementOrdered By: Hector Amaral on 12-24-2024 ALP [Catalytic activity/Vol] 58 U/L 40-129 [facility] Serum or plasma calcium anisha urement (mass/volume)Ordered By: Hector Amaral on 12-24-2024 Calcium [Mass/Vol] 9.1 mg/dL 7.6-11.0 [facility] Serum or plasma ethanol anisha urement (mass/volume)Ordered By: Hector Amaral on 12-24-2024 Ethanol [Mass/Vol] mg/dL <10.1 [facility] Comment on above: This test is for med ical purposes only. The legal definition of intoxication varies according to local law. Serum or plasma urea nitroge n measurement (mass/volume)Ordered By: Hector Amaral on 12-24-2024 Urea nitrogen [Mass/Vol] 23 mg/dL High 4-19 [facility] Sodium levelOrdered By: Hector Amaral on 12-24-2024 Sodium [Moles/Vol] 141 mmol/L 133-145 [facility] THYROID STIMULATING HORMONEo n 12-24-2024 THYROID STIMULATING HORMONE 1.89 uIU/mL Normal 0.35-4.94 [facility] Comment on above: Performed By: #### L AB113, QGR370, [id number], UXU900, [id number], QKM214, LAB17, LAB46 ####Director Consumer: SHAHLA WARREN ([phone])[address] Total carbon dioxide measure mentOrdered By: Hector Amaral on 12-24-2024 CO2 [Moles/Vol] 19 mmol/L [facility] Total proteinOrdered By: Rissa Amaral on 12-24-2024 Protein [Mass/Vol] 7.1 g/dL 5.9-8.4 [facility] Troponin T.cardiac [Mass/vol ume] in Serum or Plasma by High sensitivity methodOrdered By: Hector Amaral on 12-24-2024 Troponin T.cardiac High sensitivity method [Mass/Vol] 455 ng/L High <22 [facility] Comment on above: Critical Result(s) C alled at: 1818 by: JOHN KIMBLE Results read back by same. Troponin T.cardiac High sensitivity method [Mass/Vol] 662 ng/L High < [facility] Comment on above: Critical Result(s) C alled at 12/24/2024-15:17 by: Thee Day to Deonna Silveira Results read back by same. Urine Drug Screen (VISTA)on 12-24-2024 METHADONE Positive Normal < 300 ng/mL [facility] Comment on above: Result Comment: If c onfirmation testing is needed, a separate order will be required to send out testing to the reference laboratory. Performed By: #### L 501.9100, L505.5000, L500.4050, L100.0100 #### [facility] [address] [place], [address] Urine benzodiazepine levelOr dered By: Hector Amaral on 12-24-2024 Benzodiazepines Ql (U) Negative < 200 ng/mL [facility] Urine cocaine levelOrdered B y: Hector Amaral on 12-24-2024 Cocaine Ql (U) Negative < 300 ng/mL [facility] Urine iicph-3-zyzyzvktyqbefg abinol (THC) measurementOrdered By: Hector Amaral on 12-24-2024 Cannabinoids Screen Ql (U) Negative < 50 ng/mL [facility] Urine phencyclidine (PCP) de tectionOrdered By: Hector Amaral on 12-24-2024 Phencyclidine Ql (U) Negative < 25 ng/mL [facility] White blood cell (WBC) count Ordered By: Hector Amaral on 12-24-2024 WBC (Bld) [#/Vol] 13.5 10*3/uL High 4.4-11.0 [facility] XR CHEST 1 VIEWon 12-24-2024 XR CHEST 1 VIEW Normal [facility] LIPID PANEL ([id number])Ordered B y: Hoop Punch Operator Helper on 12-20-2018 Cholesterol in HDL mass conc 72 mg/dL Normal [facility] Work Phone: Comment on above: PATIENT WAS FASTINGP ERFORMED BY: [facility] [id number] Cholesterol in LDL mass conc 94 mg/dL Normal 0-99 [facility] Work Phone: Comment on above: PATIENT WAS FASTINGP ERFORMED BY: [facility] [id number] Cholesterol in LDL/Cholesterol in HDL mass ratio 1.3 {ratio} Normal 0.0-3.6 [facility] Work Phone: Comment on above: LDL/HDL Ratio Men Wo men 1/2 Avg.Risk 1.0 1.5 Avg.Risk 3.6 3.2 2X Avg.Risk 6.2 5.0 3X Avg.Risk 8.0 6.1 PATIENT WAS FASTINGP ERFORMED BY: [facility] [id number] Cholesterol in VLDL mass conc 26 mg/dL Normal 5-40 [facility] Work Phone: Comment on above: PATIENT WAS FASTINGP ERFORMED BY: [facility] [id number] Cholesterol mass conc 192 mg/dL Normal 100-199 [facility] Work Phone: Comment on above: PATIENT WAS FASTINGP ERFORMED BY: ARELI [place] [id number] Triglyceride mass conc 132 mg/dL Normal 0-149 [facility] Work Phone: Comment on above: PATIENT WAS FASTINGP ERFORMED BY: ARELI [facility]CoR[facility] [id number] [facility] [id number] TSH ([id number])Ordered By: Tuan m Television Anchor on 12-20-2018 Thyrotropin Qn 1.270 {uIU/mL} Normal 0.450-4.500 [facility] Comment on above: PATIENT WAS FASTINGP ERFORMED BY: [facility] [employer] [id number] [place] [facility] [id number] Vital Signs Date Time Vital Sign Value Performing Clinician [facility] 05-26-2025 13:29-0400 Body height 170.2 cm Enio Comer MD Work Phone: [facility] 05-26-2025 13:29-0400 Body mass index (BMI) [Ratio] 23.46 kg/m2 Enio Comer MD Work Phone: [employer] [facility] 05-26-2025 13:29-0400 Body weight 67.95 kg Enio Comer MD Work Phone: [facility] 05-26-2025 13:29-0400 Diastolic blood pressure 83 mm[Hg] Eino Comer MD Work Phone: [facility] 05-26-2025 13:29-0400 Heart rate 70 /min Enio Comer MD Work Phone: [employer] 05-26-2025 13:29-0400 Respiratory rate 14 /min Enio Comer MD Work Phone: [facility] 05-26-2025 13:29-0400 SaO2% (BldA) [Mass fraction] 96 % Enio Comer MD Work Phone: [facility] Comment on above: 05-26-2025 13:29-0400 Systolic blood pressure 124 mm[Hg] Enio Comer MD Work Phone: [employer] 02-03-2025 10:57-0400 Body height 167.6 cm Ry Altamirano MD Work Phone: [facility] 02-03-2025 10:57-0400 Body mass index (BMI) [Ratio] 23.73 kg/m2 Ry Altamirano MD Work Phone: [facility] 02-03-2025 10:57-0400 Body weight 66.68 kg Ry Altamirano MD Work Phone: [facility] 02-03-2025 10:57-0400 Diastolic blood pressure 85 mm[Hg] Ry Altamirano MD Work Phone: [facility] 02-03-2025 10:57-0400 Heart rate 88 /min Ry Altamirano MD Work Phone: [facility] 02-03-2025 10:57-0400 Respiratory rate 14 /min Ry Altamirano MD Work Phone: [facility] 02-03-2025 10:57-0400 SaO2% (BldA) [Mass fraction] 98 % Ry Altamirano MD Work Phone: [facility] Comment on above: 02-03-2025 10:57-0400 Systolic blood pressure 128 mm[Hg] Ry Altamirano MD Work Phone: [facility] 01-09-2025 11:54-0400 Body temperature 97.2 [degF] Bebo Jones MD Work Phone: [facility] 01-09-2025 11:54-0400 Diastolic blood pressure 90 mm[Hg] Bebo Jones MD Work Phone: [facility] 01-09-2025 11:54-0400 Heart rate 96 /min Bebo Jones MD Work Phone: [facility] 01-09-2025 11:54-0400 Respiratory rate 18 /min Bebo Jones MD Work Phone: [facility] 01-09-2025 11:54-0400 SaO2% (BldA) [Mass fraction] 97 % Bebo Jones MD Work Phone: [facility] 01-09-2025 11:54-0400 Systolic blood pressure 110 mm[Hg] Bebo Jones MD Work Phone: [facility] 01-09-2025 03:37-0400 Body mass index (BMI) [Ratio] 21.89 kg/m2 Bebo Jones MD Work Phone: [facility] 01-09-2025 03:37-0400 Body weight 61.51 kg Bebo Jones MD Work Phone: [facility] 01-04-2025 10:57-0400 Body height 167.6 cm Bebo Jones MD Work Phone: [facility] 01-02-2025 08:07-0400 SaO2% (BldA) [Mass fraction] 94.2 % Bebo Jones MD Work Phone: [facility] 01-02-2025 04:33-0400 SaO2% (BldA) [Mass fraction] 96.9 % Bebo Jones MD Work Phone: [facility] 01-01-2025 15:50-0400 SaO2% (BldA) [Mass fraction] 98.7 % Bebo Jones MD Work Phone: [facility] 01-01-2025 09:13-0400 SaO2% (BldA) [Mass fraction] 96.2 % Bebo Jones MD Work Phone: [facility] 01-01-2025 00:39-0400 SaO2% (BldA) [Mass fraction] 93.3 % Bebo Jones MD Work Phone: [facility] 12-31-2024 17:08-0400 SaO2% (BldA) [Mass fraction] 95.1 % Bebo Jones MD Work Phone: [facility] 12-31-2024 10:35-0400 SaO2% (BldA) [Mass fraction] 96.3 % Bebo Jones MD Work Phone: [facility] 12-31-2024 00:19-0400 SaO2% (BldA) [Mass fraction] 93.1 % Bebo Jones MD Work Phone: [facility] 12-30-2024 16:29-0400 SaO2% (BldA) [Mass fraction] 89.2 % Bebo Jones MD Work Phone: [facility] 12-30-2024 08:57-0400 SaO2% (BldA) [Mass fraction] 96 % Bebo Jones MD Work Phone: [facility] 12-30-2024 05:08-0400 SaO2% (BldA) [Mass fraction] 90.2 % Bebo Jones MD Work Phone: [facility] 12-24-2024 18:40-0400 Body temperature 92.1 [degF] No Primary Care Physician [facility] 12-24-2024 18:40-0400 Diastolic blood pressure 83 mm[Hg] No Primary Care Physician [facility] 12-24-2024 18:40-0400 Heart rate 86 /min No Primary Care Physician [facility] 12-24-2024 18:40-0400 Respiratory rate 20 /min No Primary Care Physician [facility] 12-24-2024 18:40-0400 SaO2% (BldA) [Mass fraction] 90 % No Primary Care Physician [facility] 12-24-2024 18:40-0400 Systolic blood pressure 117 mm[Hg] No Primary Care Physician [facility] 12-24-2024 17:13-0400 Inhaled oxygen concentration 100 % No Primary Care Physician [facility] 12-24-2024 14:34-0400 Body height 177.8 cm No Primary Care Physician [facility] 12-24-2024 14:34-0400 Body mass index (BMI) [Ratio] 26.5 kg/m2 No Primary Care Physician [facility] 12-24-2024 14:34-0400 Body weight 83.8 kg No Primary Care Physician [facility] 11-17-2018 15:53-0400 BMI (Body Mass Index) 23.02 kg/m2 Vera wang [facility] Work Phone: 11-17-2018 15:53-0400 Body Temperature 96.9 [degF] [facility] Work Phone: Comment on above: Method: Temporal 11-17-2018 15:53-0400 Body weight 66.68 kg Vera Sapmson [facility] Work Phone: 11-17-2018 15:53-0400 BP Diastolic 80 mm[Hg] [facility] Work Phone: Comment on above: Patient Position: Sitting; Cuff Location : Left Arm; Cuff Size: Standard 11-17-2018 15:53-0400 BP Systolic 110 mm[Hg] [facility] Work Phone: Comment on above: Patient Position: Sitting; Cuff Location : Left Arm; Cuff Size: Standard 11-17-2018 15:53-0400 BSA (Body Surface Area) 1.77 m2 [facility] Work Phone: 11-17-2018 15:53-0400 Height 170.18 cm [facility] Work Phone: 11-17-2018 15:53-0400 Pulse (Heart Rate) 72 /min [facility] Work Phone: Comment on above: Pattern: Regular 11-17-2018 15:53-0400 Pulse Oximetry 95 % [facility] Work Phone: Comment on above: Room air 11-17-2018 15:53-0400 Respiratory Rate 16 /min [facility] Work Phone: Comment on above: Pattern: Unlabored 11-17-2018 15:53-0400 Weight 66.68 kg [facility] Work Phone: Encounters Encounter Date Encounter Type Care Provider Facility Start: 05-26-2025 End: 05-26-2025 Telephone encounter Enio Comer MD Work Phone: [facility] [place] Start: 05-26-2025 End: 05-26-2025 Office outpatient visit 25 minutes Enio Comer MD Work Phone: [facility] Comment on above: Lung nodule seen on imaging study (Primary Dx); 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; Cardiac arrest (HCC); Other pulmonary embolism without acute cor pulmonale, unspecified chronicity (HCC); Other acute pulmonary embolism without acute cor pulmonale (HCC) Start: 04-20-2025 End: 04-20-2025 Telephone encounter Enio Comer MD Work Phone: [facility] Comment on above: Reschedule Start: 04-11-2025 End: 06-11-2025 Follow-up encounter Ry Altamirano MD Work Phone: [facility] Comment on above: Complete PFT pre and post bronchodilator, CT chest wo IV contrast Start: 04-10-2025 End: 04-10-2025 ambulatory [facility] Start: 04-10-2025 End: 04-10-2025 Subsequent hospital visit by physician Ry Altamirano MD Work Phone: 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 Roman Rubio MD -[facility] Work Phone: Start: 01-23-2025 End: 01-23-2025 ambulatory Roman Rubio Facility:[facility] Start: 01-09-2025 End: 04-18-2025 Telephone encounter Amarilis Danielle RN [facility] [place] Comment on above: Care Coordination (N uance Search for Lung Nodule /) Start: 12-28-2024 End: 12-28-2024 ambulatory [facility] [address] [facility] Start: 12-27-2024 End: 12-27-2024 ambulatory [facility] Start: 12-26-2024 End: 12-26-2024 ambulatory [facility] Start: 12-24-2024 End: 01-09-2025 Evaluation and management of inpatient Bebo Jones MD Work Phone: [facility] Cardiac Progressive Care Unit PCU 5W Start: 12-24-2024 End: 12-24-2024 Emergency department patient visit Dr. Hector Amaral MD -Emergency Department Work Phone: Start: 12-20-2018 End: 12-20-2018 Phone Encounter [facility] [employer] [facility] Start: 11-17-2018 Patient encounter procedure [facility] Start: 11-17-2018 End: 11-17-2018 Office outpatient new 20 minutes [facility] Procedures Date Procedure Procedure Detail Performing Clinician Start: 04-10-2025 Brncdilat rspse spmt ry pre&post-brncdilat admn Ry Altamirano MD Work Phone: Start: 02-03-2025 Follow-up visit LUAN BEE Start: 01-09-2025 Glucose quantitative blood xcpt reagent strip Luan Wilson MD Work Phone: Start: 01-09-2025 Dup-scan artl arely abdl/pel/scrot&/rpr orgn lmt Luan Wilson MD Work Phone: Start: 01-09-2025 Glucose quantitative blood xcpt reagent strip Luan Wilson MD Work Phone: Start: 01-09-2025 Comprehensive metabo lic panel Maverick Miramontes MD Work Phone: Start: 01-08-2025 Comprehensive metabo lic panel Maverick Miramontes MD Work Phone: Start: 01-07-2025 Glucose quantitative blood xcpt reagent strip Luan Wilson MD Work Phone: Start: 01-07-2025 Procalcitonin (pct) Chiqui Dinero MD Work Phone: Start: 01-07-2025 Comprehensive metabo lic panel Maverick Miramontes MD Work Phone: Start: 2025 Assay of troponin quantitative Inez Brooks Jaharpreet [employer] Work Phone: Start: 2025 Ct angiography chest w/contrast/noncontrast Enio Comer MD Work Phone: Start: 2025 Natriuretic peptide Dale Wislon MD Work Phone: Start: 2025 Cta hrt cornry art/b ypass grfts contrst 3d post Fritz Fiore MD Work Phone: Start: 2025 Cardiac mri w/wo con trast & further seq Fritz Fiore MD Work Phone: Start: 2025 Comprehensive metabo lic panel Maverick Miramontes MD Work Phone: Start: 01-05-2025 Glucose quantitative blood xcpt reagent strip Luan Wilson MD Work Phone: Start: 01-05-2025 Comprehensive metabo lic panel Maverick Miramontes MD Work Phone: Start: 01-04-2025 Glucose quantitative blood xcpt reagent strip Marquez Melo MD Work Phone: Start: 01-03-2025 Glucose quantitative blood xcpt reagent strip Marquez Melo MD Work Phone: Start: 01-03-2025 Glucose quantitative blood xcpt reagent strip Marquez Melo MD Work Phone: Start: 01-03-2025 Radiologic exam ches t single view Maverick Miramontes MD Work Phone: Start: 01-03-2025 Glucose quantitative blood xcpt reagent strip Marquez Melo MD Work Phone: Start: 01-03-2025 End: 01-03-2025 Comprehensive metabolic panel Maverick Miramontes MD Work Phone: Start: 01-03-2025 Glucose quantitative blood xcpt reagent strip Marquez Melo MD Work Phone: Start: 01-02-2025 Glucose quantitative blood xcpt reagent strip Marquez Melo MD Work Phone: Start: 01-02-2025 OXYGEN THERAPY Maverick Miramontes MD Work Phone: Start: 01-02-2025 Glucose quantitative blood xcpt reagent strip Marquez Melo MD Work Phone: Start: 01-02-2025 OXYGEN THERAPY Maverick Miramontes MD Work Phone: Start: 01-02-2025 EXTUBATION Maverick Miramontes MD Work Phone: Start: 01-02-2025 End: 01-02-2025 Basic metabolic panel calcium total Aryan [employer] Work Phone: Start: 01-02-2025 Blood gases any comb ination ph pco2 po2 co2 hco3 Aryan [employer] Work Phone: Start: 01-02-2025 Radiologic exam ches t single view Aryan [employer] Work Phone: Start: 01-02-2025 Blood gases any comb ination ph pco2 po2 co2 hco3 Aryan [employer] Work Phone: Start: 01-02-2025 End: 01-02-2025 Bilirubin direct Aryan Wilkinson [employer] Work Phone: Start: 01-02-2025 Manual Differential panel - Blood Devi Hutson MD Work Phone: Start: 01-02-2025 Comprehensive metabo lic panel Aryan [employer] Work Phone: Start: 01-01-2025 Basic metabolic pane l calcium total Aryan Wilkinson DO Work Phone: Start: 01-01-2025 Blood gases any comb ination ph pco2 po2 co2 hco3 Aryan Wilkinson DO Work Phone: Start: 01-01-2025 Glucose quantitative blood xcpt reagent strip Jamey Ellis MD Work Phone: Start: 01-01-2025 End: 01-01-2025 Basic metabolic panel calcium total Aryan Wilkinson DO Work Phone: Start: 01-01-2025 Blood gases any comb ination ph pco2 po2 co2 hco3 Aryan Wilkinson DO Work Phone: Start: 01-01-2025 Radiologic exam ches t single view Aryan Wilkinson DO Work Phone: Start: 01-01-2025 End: 01-01-2025 Bilirubin direct Aryan Wilkinson DO Work Phone: Start: 01-01-2025 Manual differential performed [Presence] in Blood Devi Hutson MD Work Phone: Start: 01-01-2025 Blood gases any comb ination ph pco2 po2 co2 hco3 Aryan Wilkinson DO Work Phone: Start: 01-01-2025 Comprehensive metabo lic panel Aryan Wilkinson DO Work Phone: Start: 12-31-2024 Glucose quantitative blood xcpt reagent strip Jamey Ellis MD Work Phone: Start: 12-31-2024 Blood gases any comb ination ph pco2 po2 co2 hco3 Aryan Wilkinson DO Work Phone: Start: 12-31-2024 Glucose quantitative blood xcpt reagent strip Jamey Ellis MD Work Phone: Start: 12-31-2024 Glucose quantitative blood xcpt reagent strip Jamey Ellis MD Work Phone: Start: 12-31-2024 Blood gases any comb ination ph pco2 po2 co2 hco3 Aryan Wilkinson DO Work Phone: Start: 1 End: 12-31-2024 Basic metabolic panel calcium total Aryan Wilkinson DO Work Phone: Start: 12-31-2024 Radiologic exam ches t single view Aryan Wilkinson DO Work Phone: Start: 12-31-2024 End: 12-31-2024 Bilirubin direct Aryan Wilkinson DO Work Phone: Start: 12-31-2024 Manual differential performed [Presence] in Blood Devi Hutson MD Work Phone: Start: 12-30-2024 Basic metabolic pane l calcium total Aryan Wilkinson DO Work Phone: Start: 12-30-2024 Blood gases any comb ination ph pco2 po2 co2 hco3 Aryan Wilkinson DO Work Phone: Start: 12-30-2024 Glucose quantitative blood xcpt reagent strip Jamey Ellis MD Work Phone: Start: 12-30-2024 End: 12-30-2024 Basic metabolic panel calcium total Aryan Wilkinson DO Work Phone: Start: 12-30-2024 Blood gases any comb ination ph pco2 po2 co2 hco3 Aryan Wilkinson DO Work Phone: Start: 12-30-2024 Ecg routine ecg w/le ast 12 lds trcg only w/o i&r Maverick Miramontes MD Work Phone: Start: 12-30-2024 Glucose quantitative blood xcpt reagent strip Jamey Ellis MD Work Phone: Start: 12-30-2024 Blood gases any comb ination ph pco2 po2 co2 hco3 Adama Nash DO Work Phone: Start: 12-30-2024 Basic metabolic pane l calcium total Adama Nash DO Work Phone: Start: 12-30-2024 Radiologic exam ches t single view Aryan Wilkinson DO Work Phone: Start: 12-30-2024 Basic metabolic pane l calcium total Aryan Wilkinson DO Work Phone: Start: 12-30-2024 Blood gases any comb ination ph pco2 po2 co2 hco3 Travis Anaya MD Work Phone: Start: 12-30-2024 Manual differential performed [Presence] in Blood Devi Hutson MD Work Phone: Start: 12-30-2024 Blood gases any comb ination ph pco2 po2 co2 hco3 Travis Anaya MD Work Phone: Start: 12-30-2024 Comprehensive metabo lic panel Travis Anaya MD Work Phone: Start: 12-29-2024 Basic metabolic pane l calcium total Travis Anaya MD Work Phone: Start: 12-29-2024 Blood gases any comb ination ph pco2 po2 co2 hco3 Travis Anaya MD Work Phone: Start: 12-29-2024 Basic metabolic pane l calcium total Travis Anaya MD Work Phone: Start: 12-29-2024 Blood gases any comb ination ph pco2 po2 co2 hco3 Travis Anaya MD Work Phone: Start: 12-29-2024 Basic metabolic pane l calcium total Travis Anaya MD Work Phone: Start: 12-29-2024 Blood gases any comb ination ph pco2 po2 co2 hco3 Travis Anaya MD Work Phone: Start: 12-29-2024 Basic metabolic pane l calcium total Traivs Anaya MD Work Phone: Start: 12-29-2024 Blood gases any comb ination ph pco2 po2 co2 hco3 Travis Anaya MD Work Phone: Start: 12-29-2024 Radiologic exam ches t single view [facility] DO Work Phone: Start: 12-29-2024 Basic metabolic pane l calcium total [facility] DO Work Phone: Start: 12-29-2024 Blood gases any comb ination ph pco2 po2 co2 hco3 Travis Anaya MD Work Phone: Start: 12-29-2024 Manual differential performed [Presence] in Blood Devi Hutson MD Work Phone: Start: 12-29-2024 Blood gases any comb ination ph pco2 po2 co2 hco3 Travis Anaya MD Work Phone: Start: 12-29-2024 Comprehensive metabo lic panel Travis Anaya MD Work Phone: Start: 12-28-2024 Brnchsc w/brncl alve olar lavage Travis Anaya MD Work Phone: Start: 12-28-2024 End: 12-28-2024 Smr prim src gram/giemsa stain bct fungi/cell Travis Anaya MD Work Phone: Start: 12-28-2024 BODY FLUID DIFFERENTIAL Travis Anaya MD Work Phone: Start: 12-28-2024 Cell count misc body fluids w/differential count Travis Anaya MD Work Phone: Start: 12-28-2024 Cytp slctv cell enha ncement interpj xcpt c/v Travis Anaya MD Work Phone: Start: 12-28-2024 Blood gases any comb ination ph pco2 po2 co2 hco3 Attgita Miramontes MD Work Phone: Start: 12-28-2024 Ecg routine ecg w/le ast 12 lds trcg only w/o i&r Travis Anaya MD Work Phone: Start: 12-28-2024 End: 12-28-2024 Basic metabolic panel calcium total Marsha Negritattmann DO Work Phone: Start: 12-28-2024 Radiologic exam ches t single view Travis Anaya MD Work Phone: Start: 12-28-2024 Blood gases any comb ination ph pco2 po2 co2 hco3 Attgita Miramontes MD Work Phone: Start: 12-28-2024 Radiologic exam ches t single view Aryan Wilkinson DO Work Phone: Start: 12-28-2024 Intubation endotrach eal emergency procedure Atteh Lucio Kulwinder MD Work Phone: Start: 12-28-2024 End: 12-28-2024 Basic metabolic panel calcium total Aryan Wilkinson DO Work Phone: Start: 12-28-2024 Blood gases any comb ination ph pco2 po2 co2 hco3 Jamey Ellis MD Work Phone: Start: 12-28-2024 Ecg routine ecg w/le ast 12 lds trcg only w/o i&r Aryan Wilkinson DO Work Phone: Start: 12-28-2024 Radex ribs bi w/post eroant ch minimum 4 views Aryan Wilkinson DO Work Phone: Start: 12-28-2024 Blood gases any comb ination ph pco2 po2 co2 hco3 Jamey Ellis MD Work Phone: Start: 12-28-2024 Echo transthorc r-t 2d w/wo m-mode rec f-up/lmtd Elzbieta B Puliafico [employer] Work Phone: Start: 12-28-2024 Glucose quantitative blood xcpt reagent strip Jamey Ellis MD Work Phone: Start: 12-28-2024 OXYGEN THERAPY Maverick Miramontes MD Work Phone: Start: 12-28-2024 EXTUBATION Maverick Miramontes MD Work Phone: Start: 12-28-2024 Radiologic exam ches t single view Aryan Wilkinson DO Work Phone: Start: 12-28-2024 Glucose quantitative blood xcpt reagent strip Jamey Ellis MD Work Phone: Start: 12-28-2024 Blood gases any comb ination ph pco2 po2 co2 hco3 Aryan Wilkinson DO Work Phone: Start: 12-28-2024 Comprehensive metabo lic panel rAyan Wilkinson DO Work Phone: Start: 12-28-2024 Manual Differential panel - Blood Devi Hutson MD Work Phone: Start: 12-27-2024 Glucose quantitative blood xcpt reagent strip Jamey Ellis MD Work Phone: Start: 12-27-2024 Blood gases any comb ination ph pco2 po2 co2 hco3 Jamey Ellis MD Work Phone: Start: 12-27-2024 Ct head/brain w/o co ntrast material Jazmine Lal [employer] Work Phone: Start: 12-27-2024 Radiologic exam ches t single view Aryan Wilkinson DO Work Phone: Start: 12-27-2024 Glucose quantitative blood xcpt reagent strip Jamey Ellis MD Work Phone: Start: 12-27-2024 Assay of osmolality urine Travis Anaya MD Work Phone: Start: 12-27-2024 End: 12-27-2024 Comprehensive metabolic panel [facility] DO Work Phone: Start: 12-27-2024 Manual differential performed [Presence] in Blood Devi Hutson MD Work Phone: Start: 12-27-2024 Blood gases any comb ination ph pco2 po2 co2 hco3 Aryan [facility] DO Work Phone: Start: 12-26-2024 Blood gases any comb ination ph pco2 po2 co2 hco3 Aryan [facility] DO Work Phone: Start: 12-26-2024 Glucose quantitative blood xcpt reagent strip Jamey Ellis MD Work Phone: Start: 12-26-2024 Ecg routine ecg w/le ast 12 lds trcg only w/o i&r Harjeet Schwab MD Work Phone: Start: 12-26-2024 Blood gases any comb ination ph pco2 po2 co2 hco3 [address] MD Work Phone: Start: 12-26-2024 Comprehensive metabo lic panel Radha Myers DO Work Phone: Start: 12-26-2024 Dup-scan xtr veins c omplete bilateral study Adamaloco Nash DO Work Phone: Start: 12-26-2024 Ecg routine ecg w/le ast 12 lds trcg only w/o i&r Chante Pelayo MD Work Phone: Start: 12-26-2024 End: 12-26-2024 Comprehensive metabolic panel Jodi Riggs DO Work Phone: Start: 12-26-2024 Blood gases any comb ination ph pco2 po2 co2 hco3 [address] MD Work Phone: Start: 12-26-2024 Creatine kinase total A naomy Riggs DO Work Phone: Start: 12-26-2024 Drug screen quantita tive vancomycin Jodi Riggs DO Work Phone: Start: 12-26-2024 End: 12-26-2024 Comprehensive metabolic panel Devi Hutson MD Work Phone: Start: 12-26-2024 Manual differential performed [Presence] in Blood Devi Hutson MD Work Phone: Start: 12-25-2024 Blood gases any comb ination ph pco2 po2 co2 hco3 Stefan Street MD Work Phone: Start: 12-25-2024 Comprehensive metabo lic panel Devi Hutson MD Work Phone: Start: 12-25-2024 EEG CONTINUOUS MONITORING Stefan Street MD Work Phone: Start: 12-25-2024 Blood gases any comb ination ph pco2 po2 co2 hco3 Stefan [address] MD Work Phone: Start: 12-25-2024 Comprehensive metabo lic panel Devi Hutson MD Work Phone: Start: 12-25-2024 Blood gases any comb ination ph pco2 po2 co2 hco3 [address] MD Work Phone: Start: 12-25-2024 Comprehensive metabo lic panel Devi Hutson MD Work Phone: Start: 12-25-2024 Echo tthrc r-t 2d w/wom-mode compl spec&colr d Jodi Riggs DO Work Phone: Start: 12-25-2024 Blood gases any comb ination ph pco2 po2 co2 hco3 Stefan Street MD Work Phone: Start: 12-25-2024 End: 12-25-2024 Comprehensive metabolic panel Devi Hutson MD Work Phone: Start: 12-25-2024 ETHYL GLUCURONIDE SC REEN, URINE Jodi Riggs DO Work Phone: Start: 12-25-2024 MEDICATION ASSISTED TREATMENT PANEL Jodi Riggs DO Work Phone: Start: 12-25-2024 METHADONE CONFIRMATION Aryan Wilkinson DO Work Phone: Start: 12-25-2024 Comprehensive metabo lic panel Devi Hutsno MD Work Phone: Start: 12-25-2024 Us abdominal real ti me w/image documentation Jodi Riggs DO Work Phone: Start: 12-25-2024 Glucose quantitative blood xcpt reagent strip Bebo Jones MD Work Phone: Start: 12-25-2024 Calcium ionized Atteh C seng Miramontes MD Work Phone: Start: 12-25-2024 Drug screen quantita tive vancomycin Jodi Riggs DO Work Phone: Start: 12-25-2024 Comprehensive metabo lic panel Devi Hutson MD Work Phone: Start: 12-25-2024 Manual differential performed [Presence] in Blood Devi Hutson MD Work Phone: Start: 12-25-2024 Blood gases any comb ination ph pco2 po2 co2 hco3 Rex Ellis MD Work Phone: Start: 12-25-2024 End: 12-25-2024 Creatinine other source Jodi Riggs DO Work Phone: Start: 12-25-2024 Culture bacterial quanttative colony count urine Jodi Riggs DO Work Phone: Start: 12-25-2024 LEGIONELLA AND STREPTOCOCCUS URINE ANTIGEN, ORDERABLE Jodi Riggs DO Work Phone: Start: 12-25-2024 URINE HOLD CUP Jodi Riggs DO Work Phone: Start: 12-25-2024 Radiologic exam ches t single view Jenifer Fernandez MD Work Phone: Start: 12-25-2024 Bacteria identified in Blood by Culture Jodi Riggs DO Work Phone: Start: 12-25-2024 Insj non-tunneled ce ntral venous cath age 5 yr/> Jenifer Fernandez MD Work Phone: Start: 12-24-2024 End: 12-24-2024 Comprehensive metabolic panel Devi Hutson MD Work Phone: Start: 12-24-2024 Lipid panel Devi zepeda MD Work Phone: Start: 12-24-2024 Artl cathj/cannulj mntr/transfusion spx prq Javi Waldrop DO Work Phone: Start: 12-24-2024 Radiologic exam ches t single view Jodi Riggs DO Work Phone: Start: 12-24-2024 Respiratory pathogen s DNA and RNA panel - Lower respiratory specimen by KARIME with non-probe detection Jodi Riggs DO Work Phone: Start: 12-24-2024 Respiratory pathogen s DNA and RNA panel - Nasopharynx by KARIME with non-probe detection Jodi Riggs DO Work Phone: Start: 12-24-2024 End: 12-24-2024 Smr prim src gram/giemsa stain bct fungi/cell Jodi Riggs DO Work Phone: Start: 12-24-2024 Ecg routine ecg w/le ast 12 lds trcg only w/o i&r Jodi Rgigs DO Work Phone: Start: 12-24-2024 Blood gases any comb ination ph pco2 po2 co2 hco3 Jodi Riggs DO Work Phone: Start: 12-24-2024 Comprehensive metabo lic panel Jodi Riggs DO Work Phone: Start: 12-24-2024 Drug test def 1-7 classes Jodi Riggs DO Work Phone: Start: 12-24-2024 End: 12-24-2024 Plain chest X-ray No Primary Care Physician Start: 12-24-2024 Carbon dioxide measu rement, partial pressure No Primary Care Physician Start: 12-24-2024 Gases blood o2 satur ation only direct anisha No Primary Care Physician Start: 12-24-2024 Measurement of parti al pressure of oxygen in blood No Primary Care Physician Start: 12-24-2024 Oxygen measurement No P rimary Care Physician Start: 12-24-2024 Methadone measuremen t, urine No Primary Care Physician Comment on above: If confirmation test ing is needed, a separate order will be required to send out testing to the reference laboratory. Start: 12-24-2024 CT of head without contrast No Primary Care Physician Start: 12-24-2024 Estimated creatinine clearance No Primary Care Physician Start: 12-24-2024 Gram stain microscopy N o Primary Care Physician Start: 12-24-2024 Respiratory microbia l culture No Primary Care Physician Start: 12-24-2024 Lipid 1996 panel - S tyler or Plasma Ry Altamirano MD Work Phone: Tonsillectomy Tabitha Galaviz Comment on above: and removal of adnoi ds 12years ago aprox. Plan of Treatment Date Care Activity Detail Author Start: 01-07-2064 RSV Immunization for Adults (1 - 1-dose 75+ series) RSV Immunization for Adults (1 - 1-dose 75+ series) [facility] Start: 01-07-2064 [facility] Start: 2039 Zoster Vaccines (1 o f 2) Zoster Vaccines (1 of 2) [facility] Start: 2039 [facility] Start: 01-09-2026 [facility] Start: 12-26-2025 Hemoglobin A1c measurement [facility] Start: 12-24-2025 Lipid panel [facility] Start: 07-11-2025 End: 05-26-2026 CT Chest WO contrast CT chest wo IV contrast Imaging Routine Lung nodule seen on imaging study Expected: 07/11/2025, Expires: 05/26/2026 [facility] Work Phone: Comment on above: Expected: 07/11/2025 , Expires: 05/26/2026 Start: 05-26-2025 End: 05-26-2025 Patient encounter procedure 05/26/2025 1:30 PM EDT Office Visit [facility] Lung Nodule [facility] [place] [address] [place] [address] [phone] Enio Comer MD [address] [place] [address] [facility] Lung Nodule [facility] Start: 04-24-2025 COVID-19 Vaccine ( season) COVID-19 Vaccine ( season) [facility] Start: 04-24-2025 Influenza vaccination [facility] Start: 04-24-2025 [facility] Start: 04-14-2025 End: 04-14-2025 Patient encounter procedure 04/14/2025 1:30 PM EDT Office Visit [facility] Lung Nodule [facility] [address] [place] [address] [phone] Enio Comer MD [address] [place] [address] [facility] Lung Nodule [facility] Start: 04-10-2025 End: 04-10-2025 Patient encounter procedure 04/10/2025 1:30 PM EDT Appointment [facility] CT Imaging [address] [place] [phone] Ry Altamirano MD [address] [place] [phone] [facility] CT Imaging Start: 04-10-2025 End: 04-10-2025 Patient encounter procedure 04/10/2025 12:15 PM EDT Appointment [facility] Pulm Function Test [address] [place] [phone] Ry Altamirano MD [address] [place] [phone] [facility] Pulm Function Test Start: 03-08-2025 End: 02-03-[address] CT Chest WO contrast CT chest wo IV contrast Imaging Routine Abscess of lower lobe of left lung with pneumonia (HCC) Expected: 03/08/2025 (Approximate), Expires: 02/03/2026 [facility] Work Phone: Comment on above: Expected: 03/08/2025 (Approximate), Expires: 02/03/2026 Start: 02-03-2025 End: 02-03-2026 Complete PFT pre and post bronchodilator Complete PFT pre and post bronchodilator PFT Routine Abscess of lower lobe of left lung with pneumonia (HCC) Expected: 02/03/2025 (Approximate), Expires: 02/03/2026 [facility] Comment on above: Expected: 02/03/2025 (Approximate), Expires: 02/03/2026 Start: 12-24-2024 Airway suction technique [facility] Start: 12-24-2024 [facility] Start: 12-24-2024 [facility] Start: 04-24-2024 COVID-19 Vaccine ( season) COVID-19 Vaccine ( season) [facility] Start: 04-24-2024 [facility] Start: 11-17-2018 TSH Qn TSH (42228) [facility] Work Phone: Start: 11-17-2018 Lipid panel LIPID PANEL (31633) [facility] Work Phone: Start: 11-17-2018 Procedure Education Eprescribe d prescriptions (G8553) [facility] Work Phone: Start: 11-17-2018 Provider Instruction s for Treatment [facility] Work Phone: Start: 01-07-2008 DTaP/Tdap/Td Vaccine s (1 - Tdap) DTaP/Tdap/Td Vaccines (1 - Tdap) [facility] Start: 01-07-2008 Hepatitis B Vaccines (1 of 3 - 19+ 3-dose series) Hepatitis B Vaccines (1 of 3 - 19+ 3-dose series) [facility] Start: 01-07-2008 Pneumococcal Vaccine : Pediatrics (0 to 5 Years) and At-Risk Patients (6 to 49 Years) (1 of 2 - PCV) Pneumococcal Vaccine: Pediatrics (0 to 5 Years) and At-Risk Patients (6 to 49 Years) (1 of 2 - PCV) [facility] Start: 01-07-2008 [facility] Start: 2007 [facility] Start: 2002 Varicella vaccination [facility] Start: 2001 Depression Screening Depression Scre ening [facility] Start: 2001 [facility] Start: 1999 Diabetic foot examination [facility] Start: 1999 Glaucoma screening [facility] Start: 1999 Preventive dental service [facility] Start: 1990 MMR Vaccines (1 of 1 - Standard series) MMR Vaccines (1 of 1 - Standard series) [facility] Start: 1990 [facility] End: 04-10-2025 CT Chest WO contrast [facility] Work Phone: Comment on above: Once for 1 Occurrenc es starting 04/10/2025 until 04/10/2025 EEG continuous monitoring [facility] Work Phone: EEG continuous monitoring [facility] Fungus identified in Unspecified specimen by Culture [facility] End: 12-29-2024 Pathology Review [facility] Work Phone: End: 12-30-2024 Pathology Review [facility] Work Phone: Pathology Review [facility] Work Phone: [facility] Work Phone: [facility] Work Phone: Current smoker : Eprescribed prescriptions (G8553) [facility] Work Phone: Payers Date Payer Category Payer Self-pay 2023 [employer] [facility] Care - [facility] [id number] 2023 Unknown [id number] 2018 Unknown [id number] 1990 Unknown [id number] Unknown [facility] [place] [facility] [place] Unknown ANTHEM [id number] Unknown [employer] [place] [id number] Unknown [id number] Unknown [id number] Social History Date Type Detail Facility Start: 02-03-2025 End: 05-26-2025 Alcohol Use Tobacco smoking consumption unknown [facility] Work Phone: Comment on above: 2 packs per week Start: 1990 Sex assigned at [facility] Start: 12-24-2024 Sex Male (finding) [facility] Start: 12-24-2024 Tobacco smoking status WIIS Smokes tobacco daily (finding) [facility] Start: 1990 Sex Assigned At Male [facility] Start: 02-03-2025 Tobacco smoking status WIIS Ex-smoker [facility] Start: 03-04-2023 History of tobacco use Current smoker [facility] Start: 03-04-2023 History of tobacco use Cigarette Smoker [facility] Start: 02-03-2025 End: 05-26-2025 Tobacco use and exposure Former smokeless tobacco user [facility] Start: 02-03-2025 End: 05-26-2025 Alcoholic beverage intake Current drinker of alcohol (finding) [facility] Start: 02-03-2025 End: 05-26-2025 Tobacco use panel [facility] Start: 02-03-2025 Tobacco Comment Vape [facility] ealt Tobacco smoking status WIIS Tobacco smoking consumption unknown [facility] Start: 03-04-2023 Tobacco smoking status NHIS Occasional tobacco smoker [facility] Clinical Notes 12-24-2024 to 05-29-2025 Telephone Encounter - Erik Morillo RN - 05/29/2025 1:06 PM EDTTelephone Encounter - Erik Morillo RN - 05/29/2025 1:06 PM EDTTelephone Encounter - Erik Morillo RN - 05/26/2025 2:57 PM EDT Note Date & Type Note Facility 05-29-2025 Telephone encounter Note Eliquis application approved, fax received and scanned into patient chart. [facility] 05-29-2025 Miscellaneous Notes Eliquis application approved, fax received and scanned into patient chart. [employer] financial assistance application signed and filled out during office visit. Faxed to [employer]. documented in this encounter [facility] 05-26-2025 Telephone encounter Note [employer] financial assistance application signed and filled out during office visit. Faxed to [employer]. [facility] 05-26-2025 History of Presen t illness Narrative [facility]- PUL[facility]ARY AND SLEEP MEDICINE ESTABLISHED PATIENT VISIT CHIEF COMPLAINT/REASON FOR REFERRAL: Chief Complaint Patient presents with Follow-up Assessment and Plan: 1. Lung nodule seen on imaging study (Primary) - previous multifocal infiltrates on CT chest, all but 12mm nodule in LLL resolved - discussed screening/follow up recommendations for 12mm nodule in low-risk patient, will pursue 3-month follow up CT chest and plan further evaluation from there if nodule is growing and not resolving - CT chest wo IV contrast; Future 2. 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 - patient reports childhood history of asthma, has not had asthmatic symptoms in some time - PFTs with mid-expiratory flow limitation, suggesting some component of reactive airways disease - has albuterol inhaler that was provided on hospital discharge, uses infrequently - will provide moderate dose budesonide-formoterol inhaler for PRN use (SMART therapy) 3. Cardiac arrest (HCC) - out of hospital, VT vs PEA, has family history of sudden cardiac - was recommended for OP ischemic evaluation +/- ICD placement, has yet to follow up with cardiology - placed referral at office visit today, recommended close follow up wit cardiology - Ambulatory referral to Cardiology; Future 4. Other pulmonary embolism without acute cor pulmonale, unspecified chronicity (HCC) - presence of modifiable risk factor for PE unclear; treating provisionally as unprovoked event - no known personal or family history of VTE, BLLE US was negative during admission - completed [employer] patient assistance program paperwork for patient to receive apixaban now that insurance has lapsed and he is without a job - recommend indefinite anticoagulation at this point, unclear circumstances around PE and recent cardiac arrest - recommended patient establish care with hematology office to further investigate possible hypercoagulable state and assist with long-term planning for anticoagulation, if indicated - [facility] Oncology Consult; Future Enio Comer MD Fellow, Pulmonary and Critical Care Medicine 05/26/25 1:37 PM History of Present Illness: Chelsea Cole is a 35yo male with PMH including prior tobacco and vape product use, childhood asthma, aspiration leading to ARDS and lung abscess, and a PE (currently on apixaban) who presents to pulmonology office today for interval follow up and review of PFTs and recent CT Chest. Today, Chelsea reports he is feeling generally well, but has some persistent chest wall discomfort and intermittent GERD-type pain. We discussed his recent testing, as below, and also his recent hospital stay. He said he has been BID compliant with apixaban, but recently lost his job and health insurance, and therefore ran out of his blood thinner in the last couple days. Discussed with office staff, and completed [employer] patient assistance program application for apixaban. He denies personal or family history of VTE, but did have a grandfather who of a heart attack in his 40s. The presence of PE and cardiac arrest (PEA vs VT, documentation unclear) raises concern of unprovoked event which may require indefinite anticoagulation. Also discussed hematology referral for hypercoagulable testing and further AC recommendations, which the patient accepts. Placed referral to cardiology as well, it was recommended on discharge from hospital but the patient has yet to see cardiology for ischemic evaluation and possible ICD for secondary prevention. PFTs show mild restriction without bronchodilator response and moderate decrease in DLCO. CT Chest revealed resolved multifocal consolidation, but a residual 12mm nodule at the base of the left lung. The radiologist interpretation suggests possible resolving airspace disease, but given size, would err on the side of caution and complete 3-month short follow up CT to evaluate if continuing to resolve vs needs further investigation. Vape sometimes, previously used tobacco but quit ~5 years ago. Menthol cigarettes, ~1 pack per week AIRQ Score AIRQ Score: 0 AIRQ Score: 0 In the past 2 weeks has coughing, wheezing, shortness of breath, or chest tightness: Bothered you during the day on more than 4 days?: 0 No Woke you up from sleep more than 1 time?: 0 No Limited the activities you want to do everyday?: 0 No Caused you to use your rescue inhaler or nebulizer everyday?: 0 No In the past 2 weeks: Did you have to limit your social activities (such as visiting with friends/relatives or playing with pets/children) because of your asthma?: 0 No Did coughing, wheezing, shortness of breath, or chest tightness limit your ability to exercise?: 0 No Did you feel that it was difficult to control your asthma?: 0 No In the past 12 months has coughing, wheezing, shortness of breath, or chest tightness: Caused you to take steroid pills or shots, such as prednisone or Medrol?: 0 No Caused you to go to the emergency room or have unplanned visits to a health care provider?: 0 No Caused you to stay in the hospital overnight?: 0 No PFT's & Sleep studies: PFT (04/10/2025) Absolute Value % Predicted Z-score FEV1/FVC 78% -0.66 FEV1 2.90 74 -2.08 FVC 3.70 77 -1.89 TLC 4.51 70 -2.59 RV/TLC 15 (ULN 32) 68 DLCO 16.40 56 -3.64 My personal interpretation: No obstruction or significant bronchodilator response. Mild restriction suggested by spirometry and volumes by nitrogen washout. Moderate limitation of diffusing capacity. PastMedical History Medical History[1] Past Surgical History Surgical History[2] Allergies Allergies[3] Medications Current Medications[4] Social History Social History Socioeconomic History Marital status: Single Spouse name: Not on file Number of children: Not on file Years of education: Not on file Highest education level: Not on file Occupational History Not on file Tobacco Use Smoking status: Some Days Current packs/day: 1.50 Average packs/day: 1.5 packs/day for 2.2 years (3.3 ttl pk-yrs) Types: Cigarettes Start date: 03/04/2023 Smokeless tobacco: Former Tobacco comments: Vape Substance and Sexual Activity Alcohol use: Yes Drug use: Never Sexual activity: Not on file Other Topics Concern Not on file Social History Narrative Not on file Social Drivers of Health Financial Resource Strain: Not on file Food Insecurity: Not on file Transportation Needs: Not on file Physical Activity: Not on file Stress: Not on file Social Connections: Not on file Intimate Partner Violence: Not on file Housing Stability: Not on file FamilyHistory Family History[5] Review of Systems Review of Systems Constitutional: Negative for activity change, chills, diaphoresis, fatigue and fever. HENT: Negative. Respiratory: Negative for cough, chest tightness, shortness of breath and wheezing. Cardiovascular: Positive for chest pain (chest wall discomfort, sounds MSK in nature). Negative for palpitations and leg swelling. Gastrointestinal: Negative. Musculoskeletal: Negative for arthralgias and myalgias. Neurological: Negative for dizziness, syncope, speech difficulty and light-headedness. Physical Exam Vitals: 05/26/25 1329 BP: 124/83 BP Location: Left arm Patient Position: Sitting BP Cuff Size: Adult Pulse: 70 Resp: 14 SpO2: 96% Weight: 149 lb 12.8 oz (67.9 kg) Height: 5' 7" (1.702 m) Physical Exam Vitals reviewed. Constitutional: General: He is not in acute distress. Appearance: Normal appearance. He is not ill-appearing. HENT: Mouth/Throat: Mouth: Mucous membranes are moist. Eyes: Extraocular Movements: Extraocular movements intact. Cardiovascular: Rate and Rhythm: Normal rate. Pulses: Normal pulses. Pulmonary: Effort: No respiratory distress. Breath sounds: No stridor. No wheezing, rhonchi or rales. Abdominal: General: There is no distension. Palpations: Abdomen is soft. Musculoskeletal: Right lower leg: No edema. Left lower leg: No edema. Skin: General: Skin is warm and dry. Capillary Refill: Capillary refill takes less than 2 seconds. Neurological: General: No focal deficit present. Mental Status: He is alert and oriented to person, place, and time. LABS and Studies: Available studies were personally reviewed. Salient findings summarized in HPI & A/P Imaging: CXR portable: Results for orders placed during the hospital encounter of 12/24/24 XR chest 1 view Narrative Patient Name: CHELSEA COLE : 1990 Exam Date/Time: 01/03/2025 07:45 Procedure: XR CHEST 1 VIEW Ordering Provider: MELO CALEB Reason For Exam: pulmonary edema AP CHEST X-RAY CLINICAL INDICATION: pulmonary edema TECHNIQUE: AP portable x-ray of the chest. COMPARISON: 01/02/2025 FINDINGS: Limitations: None. Support devices: Interval extubation Heart/Mediastinum: Within normal limits Lungs: Lung volumes are reduced. Diffuse airspace opacity with air bronchograms is similar to the prior study when allowing for differences in lung volumes. No substantial pleural effusion. No pneumothorax. Bones: Unremarkable Impression Interval extubation. Diffuse pulmonary edema is similar to the prior study when allowing for reduced lung volumes. Report Dictated on Electronically Signed By: Camilo Cage MD Electronically Signed Date/Time: 01/03/2025 8:31 AM EDT CXR (2V): No results found for this or any previous visit. CT Chest: Results for orders placed during the hospital encounter of 04/10/25 CT chest wo IV contrast Narrative Patient Name: CHELSEA COLE : 1990 Exam Date/Time: 04/10/2025 13:09 Procedure: CT CHEST WO IV CONTRAST Ordering Provider: ALTAMIRANO MANSUR Reason For Exam: Pneumonia, complication suspected, xray done; short term follow-up ARDS, pneumonia, lung abscess EXAMINATION: CT CHEST WO IV CONTRAST CLINICAL HISTORY: Pneumonia, complication suspected, xray done; short term follow-up ARDS, pneumonia, lung abscess COMPARISON: 2025 TECHNIQUE: Contiguous axial images of the chest without contrast were obtained from above the lung apices through the level of the adrenal glands. Dose reduction was employed with automated exposure control. FINDINGS: Cardiovasculature: Heart and aorta appear normal. No evidence of coronary artery calcification. Mediastinum/Pericardium: Unremarkable Lymph Nodes: No thoracic lymphadenopathy is evident. Pleura: Unremarkable Central Airways: No endobronchial nodules. Mild bronchiectasis bilaterally. Lungs: Multifocal lung consolidation has resolved and there are now mild irregular linear subpleural opacities throughout. A 1.2 cm juxtapleural nodular opacity posteriorly in the left lower lobe (3:225) corresponds to the prior area of peripheral consolidation which previously measured 4.6 cm. The previously noted cavitary lesion in the left lower lobe has resolved. Nodules: No nodules are present that require follow up. Included images of the upper abdomen: Unremarkable Visualized musculoskeletal structures: No acute fracture or destructive osseous lesion is identified. Impression 1. Multifocal lung consolidation has resolved except for a 12 mm nodular area of resolving airspace disease in the posterior aspect of the left lower lobe. 2. Mild bronchiectasis and mild linear fibrotic opacities bilaterally. Report Dictated on Electronically Signed By: Camilo Cage MD Electronically Signed Date/Time: 04/13/2025 10:38 AM EDT CTA Chest: Results for orders placed during the hospital encounter of 12/24/24 CT chest angiogram w and/or wo IV contrast Narrative Patient Name: CHELSEA COLE : 1990 [facility]#: [id number] Exam Date/Time: 2025 15:49 Procedure: CT CHEST ANGIOGRAM W AND/OR WO IV CONTRAST Ordering Provider: WILSON DENI Reason For Exam: RML PE, LLL cavitary lesion CTA CHEST WITH CONTRAST CLINICAL INDICATION: Right middle lobe pulmonary nodules, left lower lobe cavitary lesion, cardiac arrest Serial axial CT images were obtained from the lung apices through the upper abdomen after a bolus tracked intravenous contrast injection over the pulmonary arteries. 75 cc of Isovue 370 contrast was given intravenously. Dose reduction was employed with automated exposure control. Three-dimensional and surface-shaded reconstructions were performed by myself on a separate workstation at the time of dictation. COMPARISON: Coronary CTA performed earlier the same day. FINDINGS: Images are limited by respiratory motion artifact. There is a segmental filling defect within a branch of the right middle lobe pulmonary artery, as seen on the coronary CTA performed earlier the same day. There are also a couple of smaller filling defects within branches of the left upper lobe pulmonary artery. Thick-walled cavitary lesion is present within the left lung base measuring up to 3.8 cm in greatest diameter. Several smaller cavitary areas are present within dense consolidation within the superior segment of the right lower lobe. Coarse reticular and groundglass infiltrate is present within the lungs in a predominantly central distribution. A small area of streaky consolidation is present within the medial aspect of the right middle lobe. No pleural effusion or pneumothorax is seen. No axillary lymphadenopathy is identified. There is a borderline enlarged aorticopulmonary window lymph node and borderline enlarged left lower paratracheal and subcarinal lymph nodes. Heart size is within normal limits. There is no pericardial effusion. The thoracic aorta is normal in caliber. The visualized portion of the upper abdomen is unremarkable. Impression Limited examination due to motion artifact. Right middle lobe and left upper lobe pulmonary emboli. RV/LV ratio is 1.2, which is mildly abnormal. 3.7 cm cavitary area within the posterior aspect of the left lower lobe. Dense consolidation within the superior segment of the right lower lobe also demonstrates multiple smaller cystic or cavitary areas. Coarse reticular and groundglass infiltrates within the lungs bilaterally in a predominantly central distribution, nonspecific in appearance. Report Dictated on Electronically Signed By: Fabrizio Winkler MD Electronically Signed Date/Time: 2025 4:25 PM EDT Other Studies: Reviewed and as per electronic record. CxR/CT images personally reviewed by me when available; salient findings summarized in A/P. [1] Past Medical History: Diagnosis Date Pneumonia 12/24/24 Pulmonary embolism (HCC) 12/24/24 [2] Past Surgical History: Procedure Laterality Date IMGHX FOOT EXAM PERFORMED [3] Allergies Allergen Reactions Barium Sulfate Unknown Penicillins Unknown [4] Current Outpatient Medications: albuterol (ProAir HFA) 108 (90 Base) MCG/ACT inhaler, Inhale 2 puffs every 6 hours as needed for wheezing or shortness of breath., Disp: 8.5 g, Rfl: 11 apixaban (Eliquis) 5 MG tablet, Take 1 tablet (5 mg) by mouth 2 times daily. Can start after starter pack finishes, Disp: 312 tablet, Rfl: 0 Apixaban Starter Pack (Eliquis DVT/PE Starter Pack) 5 MG tablet therapy pack, Take by mouth 2 times daily. Take 10mg (2 tablets) twice daily for 6 days then 5 mg (1 tablet) twice daily., Disp: 74 each, Rfl: 0 folic acid (Folvite) 1 MG tablet, Take 1 tablet (1 mg) by mouth daily. (Patient not taking: Reported on 05/26/2025), Disp: 30 tablet, Rfl: 11 [5] No family history on file. Cosigned by Deepa Kaminski DO at 05/26/2025 5:14 PM EDT Associated attestation - Deepa Kaminski DO - 05/26/2025 5:14 PM EDT I saw and evaluated the patient, participating in the pérez portions of the service. I reviewed the resident s note. I agree with the resident s findings and plan. 35 yo with recent diffuse pneumonia, pulmonary nodule. , vfib arrest. Pw evaluation follow up Pfts moderate restriction on spirometry with diffusion limitation. Family hx of cad in grandfather in his 40's Pneumonia, resolving infiltreats. On room air . Clear. Residual: Pulmonary nodule 12mm lll . Resolving. Repeat CT 3 months to ensure improvement Asthma since childhood. Prn symbicort. Pfts with rvd, diffusion impr, mid expiratory ovd Hx of Vfib arrest. ? Pe provocation/pneumonia/ lung abscess. Cardiology follow up and risk stratificaiton recommended PE with RV strain, with complicated arrest. Unclear initial event but high risk pe with arrest/- favor lifelong AC. Will refer to hematology. Recnetly lost insurance . Rx benefit eval assistance. Short term fup Deepa Kaminski DO I saw and evaluated the patient, participating in the pérez portions of the service. I reviewed the resident s note. I agree with the resident s findings and plan. 35 yo with recent diffuse pneumonia, pulmonary nodule. , vfib arrest. Pw evaluation follow up Pfts moderate restriction on spirometry with diffusion limitation. Family hx of cad in grandfather in his 40's Pneumonia, resolving Pulmonary nodule 12mm lll . Resolving. Repeat CT 3 months to ensure improvement Asthma since childhood. Prn symbicort Hx of Vfib arrest. ? Pe provocation/pneumonia/ lung abscess. Cardiology follow up and risk stratificaiton recommended PE with RV strain, with complicated arrest. Unclear initial event but high risk pe with arrest/- favor lifelong AC. Will refer to hematology. Recnetly lost insurance . Rx benefit eval assistance. Deepa Kaminski DO documented in this encounter [facility] 05-26-2025 Instructions Leah Coffman MA - 05/26/2025 1:30 PM EDT YOUR APPOINTMENT TODAY WAS WITH THE [email or web address] LUNG NODULE CLINIC, COPD CLINIC, PULMONARY AND SLEEP MEDICINE OFFICE. PLEASE CALL OUR OFFICE AT [phone] IF YOU HAVE NOT RECEIVED YOUR TEST RESULTS 7 DAYS AFTER TESTING IS COMPLETED. PLEASE REMEMBER TO REQUEST REFILLS AT YOUR OFFICE VISITS. PHONE/FAX REQUESTS REQUIRE 48-72 HOURS FOR RESPONSE. A FRIENDLY REMINDER COPAYS ARE DUE AT TIME OF SERVICE. THANK YOU. Our Patients Are Important! We want to improve and you can help. After your visit we want you to feel: Listened to, Respected and have your health care explained. You may receive a survey asking you about your visit. Please complete the survey. We will use your feedback to make improvements. COVID-19 VACCINATION INFORMATION: PH. [phone] [email or web address] [facility] Central Scheduling [phone] [facility] Sleep Scheduling [phone] documented in this encounter [facility] 04-20-2025 Telephone encounter Note Called LM to RS 04/[address] Comer [facility] 04-20-2025 Miscellaneous Notes Called LM to RS 04/[address] Comer documented in this encounter [facility] 04-11-2025 Telephone encounter Note PFT (04/10/25) Absolute Value % Predicted Z-score FEV1/FVC 83% FEV1 3.02 77 -1.84 FVC 3.64 76 -1.99 TLC 4.51 70 -2.59 RV/TLC 15 (ULN 32) 68 DLCO 16.40 56 -3.64 My personal interpretation: Spirometry shows no overt airflow obstruction. Lung volumes show moderate restriction. Gas transfer is moderately reduced. No evidence of obstructive lung disease. Restriction and reduction in DLCO consistent with small areas of residual scar seen on corresponding CT chest, which overall appears significantly improved compared to prior imaging. Follow-up is scheduled to discuss. [facility] 04-11-2025 Miscellaneous Notes PFT (04/10/25) Absolute Value % Predicted Z-score FEV1/FVC 83% FEV1 3.02 77 -1.84 FVC 3.64 76 -1.99 TLC 4.51 70 -2.59 RV/TLC 15 (ULN 32) 68 DLCO 16.40 56 -3.64 My personal interpretation: Spirometry shows no overt airflow obstruction. Lung volumes show moderate restriction. Gas transfer is moderately reduced. No evidence of obstructive lung disease. Restriction and reduction in DLCO consistent with small areas of residual scar seen on corresponding CT chest, which overall appears significantly improved compared to prior imaging. Follow-up is scheduled to discuss. documented in this encounter [facility] 02-03-2025 History of Presen t illness Narrative Images from the original note were not included. [facility] Pulmonary Medicine Lung Nodule Clinic [address] [place] [address] Name: Chelsea Cole : 1990 Age: 35 y.o. Visit Date: 02/03/25 Reason for Visit: hospital follow-up ARDS, lung abscess History of Present Illness: Chelsea Cole is a 35 y.o. male presenting for evaluation for hospital follow-up. 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 He has a history of childhood asthma, was on albuterol at one point but states he "grew out of it" as he got older. He was recently admitted to [facility] from 12/24/24-01/09/25 for out of hospital vfib arrest likely related to aspiration pneumonia leading to ARDS. The night of the event, patient's significant other found him on the cough with vomit on his shirt, was reportedly drinking alcohol and smoking marijuana that night but did have some chest pain/palpitations earlier that day. He received about 12 minutes of ACLS, initially taken to [facility] then subsequently transferred to [facility] ICU for further management. Sputum pneumonia PCR was positive for MSSA, Streptococcus pneumoniae, Haemophilus influenzae. TTE showed mildly reduced LVEF which eventually recovered to normal 67% on follow-up TTE. Cardiac MRI showed no significant findings. CTA coronary showed no concerning atherosclerotic changes but did show an incidental RML PE. Subsequent dedicated CTA chest confirmed RML and CHARMAINE pulmonary emboli but also showed bilateral cavitary consolidations in RLL and LLL along with patchy bilateral ground-glass consolidations. Pulmonary was consulted, he was started on Eliquis for anticoagulation, antibiotics switched to Augmentin, which he completed (overall received close to 6 weeks of antibiotics). Patient presents with mother today. He feels notably improved overall. He has notable amnesia regarding his stay in ICU. He endorses persistent cough since discharge, mainly dry/non-productive. He has notable dyspnea with exertion (getting mail, using stairs) that improves with rest. He denies fever, chills, chest pain, wheezing, orthopnea, hemoptysis, abdominal pain, nausea, vomiting, diarrhea, constipation, lightheadedness, dizziness, dysuria, hematuria, melena, hematochezia, leg pain, leg swelling. He is tolerating the Eliquis without issue. He is hemodynamically stable and in no acute distress. 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 Social History: reports that he has quit smoking. His smoking use included cigarettes. He started smoking about 23 months ago. He has a 2.9 pack-year smoking history. He has quit using smokeless tobacco. He reports current alcohol use. He reports that he does not use drugs. Current Outpatient Medications Medication Instructions albuterol (ProAir HFA) 108 (90 Base) MCG/ACT inhaler 2 puffs, Inhalation, Every 6 hours PRN apixaban (ELIQUIS) 5 mg, Oral, 2 times daily, Can start after starter pack finishes Apixaban Starter Pack (Eliquis DVT/PE Starter Pack) 5 MG tablet therapy pack Oral, 2 times daily, Take 10mg (2 tablets) twice daily for 6 days then 5 mg (1 tablet) twice daily. folic acid (FOLVITE) 1 mg, Oral, Daily Lactobacillus 0.05-0.05 MG tablet 4 tablets, Oral, Daily thiamine (VITAMIN B-1) 100 mg, Oral, Daily Allergies[4] Physical Exam: Vitals: Blood pressure 128/85, pulse 88, resp. rate 14, height 5' 6" (1.676 m), weight 147 lb (66.7 kg), SpO2 98%. General: AAOx3, NAD, pt is comfortable HEENT: normocephalic, no obvious trauma, moist oral and nasal mucosa, conjunctivae/corneas clear RESPIRATORY: clear to auscultation bilaterally, no wheezing, no crackles CARDIOVASCULAR: +S1/S2, RRR, no murmurs, no rubs, no gallops, no obvious JVD, peripheral pulses palpable in UE and LE GASTROINTESTINAL: soft, nondistended, nontender, normal bowel sounds MUSCULOSKELETAL: no obvious deformities noted, no edema in b/l LE SKIN: warm and dry, intact, without obvious lesions NEUROLOGICAL: no gross motor deficits PSYCHIATRIC: appropriate to circumstances LYMPHATIC: no palpable lymphadenopathy Data Review: Labs No results for input(s): "WBC", "HGB", "HCT" in the last 72 hours. No lab exists for component: PLAT No results for input(s): "NA", "K", "CL", "CO2", "GLUCOSE", "BUN", "CREATININE", "EGFR", "CALCIUM", "ALBUMIN", "ALK", "AST", "ALT", "PTT", "INR" in the last 72 hours. No lab exists for component: "TP", "TBILI" No PFT on file CTA chest (01/06/25) IMPRESSION: Limited examination due to motion artifact. Right middle lobe and left upper lobe pulmonary emboli. RV/LV ratio is 1.2, which is mildly abnormal. 3.7 cm cavitary area within the posterior aspect of the left lower lobe. Dense consolidation within the superior segment of the right lower lobe also demonstrates multiple smaller cystic or cavitary areas. Coarse reticular and groundglass infiltrates within the lungs bilaterally in a predominantly central distribution, nonspecific in appearance. I have personally reviewed all pertinent labs and imaging. Assessment & Plan: Hospital follow-up: Vifb arrest Polymicrobial pneumonia ARDS Lung abscess PE, ?unprovoked Childhood asthma - patient was admitted to [facility] from 12/24/24-01/09/25 for out of hospital vfib arrest likely related to aspiration pneumonia leading to ARDS - the night of the event, patient's significant other found him on the cough with vomit on his shirt, was reportedly drinking alcohol and smoking marijuana that night but did have some chest pain/palpitations earlier that day - he received about 12 minutes of ACLS, initially taken to [facility] then subsequently transferred to [facility] ICU for further management - sputum pneumonia PCR was positive for MSSA, Streptococcus pneumoniae, Haemophilus influenzae, he was started on appropriate antibiotics on admission - TTE showed mildly reduced LVEF which eventually recovered to normal 67% on follow-up TTE, cardiac MRI showed no significant findings, CTA coronary showed no concerning atherosclerotic changes but did show an incidental RML PE - subsequent dedicated CTA chest confirmed RML and CHARMAINE pulmonary emboli but also showed bilateral cavitary consolidations in RLL and LLL along with patchy bilateral ground-glass consolidations - inpatient pulmonary service was consulted, patient was started on Eliquis for anticoagulation - patient feels notably improved since discharge but still has dyspnea with exertion and chronic cough, which is not surprising given extent of initial insult - cavitary consolidations in both lower lobes likely represent abscess formation, patient completed an appropriate course of antibiotics (roughly 6 weeks total) - for now, I recommend obtaining a short-term follow-up CT chest in February, order placed - suspect his respiratory symptoms will slowly improve as his lungs recover, obtain PFT's to evaluate for new/worsening airflow obstruction, prescribed PRN albuterol, counseled on proper inhaler technique, encouraged patient to use and make note if it helps symptoms (or doesn't help symptoms) - with regards to the PE, suspect this developed as a result of the cardiac arrest and pneumonia, suspect initial event was largely due to aspiration pneumonia; recommend at least 3 months of treatment but would be reasonable to extend treatment duration to 6 months given the uncertainty surrounding the events leading to this; discussed risks/benefits of extended duration of anticoagulation, patient agreeable, additional Eliquis prescription provided, plan to complete Eliquis around 07/09/25, patient expressed understanding - follow-up after PFT and CT chest to review results and symptoms Ry Altamirano MD Pulmonary & Critical Care Medicine [facility] Lung Nodule [facility] [1] No past medical history on file. [2] Past Surgical History: Procedure Laterality Date IMGHX FOOT EXAM PERFORMED [3] No family history on file. [4] No Known Allergies documented in this encounter [facility] 02-03-2025 Instructions Florinda Al MA - 02/03/2025 11:00 AM EDT YOUR APPOINTMENT TODAY WAS WITH THE [facility] [[email or web address]] LUNG NODULE CLINIC, COPD CLINIC, PULMONARY AND SLEEP MEDICINE OFFICE. PLEASE CALL OUR OFFICE AT [phone] IF YOU HAVE NOT RECEIVED YOUR TEST RESULTS 7 DAYS AFTER TESTING IS COMPLETED. PLEASE REMEMBER TO REQUEST REFILLS AT YOUR OFFICE VISITS. PHONE/FAX REQUESTS REQUIRE 48-72 HOURS FOR RESPONSE. A FRIENDLY REMINDER COPAYS ARE DUE AT TIME OF SERVICE. THANK YOU. Our Patients Are Important! We want to improve and you can help. After your visit we want you to feel: Listened to, Respected and have your health care explained. You may receive a survey asking you about your visit. Please complete the survey. We will use your feedback to make improvements. COVID-19 VACCINATION INFORMATION: PH. [phone] [email or web address] [facility] Central Scheduling [phone] [facility] Sleep Scheduling [phone] documented in this encounter [facility] 01-11-2025 Telephone encounter Note Patient scheduled [facility] follow up on 02/03 in [facility] location with Dr. Altamirano. [facility] 01-11-2025 Miscellaneous Notes Patient scheduled [facility] follow up on 02/03 in [facility] location with Dr. Altamirano. Please arrange hosp fu for this patient with any available [facility] physician at preferred location. Pt appeared on [employer] search for Lung nodules after CTA chest 01/06/25; revealed the following: IMPRESSION: Limited examination due to motion artifact. Right middle lobe and left upper lobe pulmonary emboli. RV/LV ratio is 1.2, which is mildly abnormal. 3.7 cm cavitary area within the posterior aspect of the left lower lobe. Dense consolidation within the superior segment of the right lower lobe also demonstrates multiple smaller cystic or cavitary areas. Coarse reticular and groundglass infiltrates within the lungs bilaterally in a predominantly central distribution, nonspecific in appearance. Referral: pulm; cards [facility] imaging: na Pt is documented as: former smoker Additional Risk Factors: cardiac arrest, ARDS, + pathogens, MSSA, strep PNA, H Flu, Pulm consulted for LLL cavitary mass. Planning extended course of Atb and Ct chest in 4-6 weeks. Lung Navigators to follow. Respiratory consult for lung nodule also received. Same as above. documented in this encounter [facility] 01-11-2025 Telephone encounter Note Please arrange hosp fu for this patient with any available [facility] physician at preferred location. [facility] 01-09-2025 Miscellaneous Notes Notified this AM by [facility] that pt was interested in home care. Pt is not appropriate for home care services at this time, message left to update pt and contact info given if patient has any questions. Problem: Knowledge Deficit Goal: Patient/family/caregiver demonstrates understanding of disease process, treatment plan, medications, and discharge instructions 01/09/2025 1407 by Jazlyn Rogers RN Outcome: Progressing 01/09/2025 1030 by Jazlyn Rogers RN Outcome: Progressing Problem: Potential for Compromised Skin Integrity Goal: Skin Integrity is Maintained or Improved 01/09/2025 1407 by Jazlyn Rogers RN Outcome: Progressing 01/09/2025 1030 by Jazlyn Rogers RN Outcome: Progressing Goal: Nutritional status is improving 01/09/2025 1407 by Jazlyn Rogers RN Outcome: Progressing 01/09/2025 1030 by Jazlyn Rogers RN Outcome: Progressing Problem: Urinary Incontinence Goal: Perineal skin integrity is maintained or improved 01/09/2025 1407 by Jazlyn Rogers RN Outcome: Progressing 01/09/2025 1030 by Jazlyn Rogers RN Outcome: Progressing Problem: Problem Interventions Goal: Assess Nutritional Intake 01/09/2025 1407 by Jazlyn Rogers RN Outcome: Progressing 01/09/2025 1030 by Jazlyn Rogers RN Outcome: Progressing Problem: Inadequate Airway Clearance Goal: Patient will maintain patent airway 01/09/2025 1407 by Jazlyn Rogers RN Outcome: Progressing 01/09/2025 1030 by Jazlyn Rogers RN Outcome: Progressing Goal: Patient will achieve/maintain normal respiratory rate/effort 01/09/2025 1407 by Jazlyn Rogers RN Outcome: Progressing 01/09/2025 1030 by Jazlyn Rogers RN Outcome: Progressing Problem: Inadequate Breathing Pattern Goal: Patient will maintain effective ventilation 01/09/2025 1407 by Jazlyn Rogers RN Outcome: Progressing 01/09/2025 1030 by Jazlyn Rogers RN Outcome: Progressing Problem: Excessive Fluid Volume Goal: Fluid and electrolyte balance are achieved/maintained 01/09/2025 1407 by Jazlyn Rogers RN Outcome: Progressing 01/09/2025 1030 by Jazlyn Rogers RN Outcome: Progressing Problem: Safety - Non-violent/Interference with Medical Treatment Restraint Goal: Remains free of injury from restraints (Restraint for Interference with [facility]) 01/09/2025 1407 by Jazlyn Rogers RN Outcome: Progressing 01/09/2025 1030 by Jazlyn Rogers RN Outcome: Progressing Goal: Free from restraint(s) (Restraint for Interference with [facility]) 01/09/2025 1407 by Jazlyn Rogers RN Outcome: Progressing 01/09/2025 1030 by Jazlyn Rogers RN Outcome: Progressing SW met with pt. Confirmed mom is working on getting an apt with Dr Roman for PCP. No other needs at this time. Problem: Knowledge Deficit Goal: Patient/family/caregiver demonstrates understanding of disease process, treatment plan, medications, and discharge instructions Outcome: Progressing Problem: Potential for Compromised Skin Integrity Goal: Skin Integrity is Maintained or Improved Outcome: Progressing Goal: Nutritional status is improving Outcome: Progressing Problem: Urinary Incontinence Goal: Perineal skin integrity is maintained or improved Outcome: Progressing Problem: Problem Interventions Goal: Assess Nutritional Intake Outcome: Progressing Problem: Inadequate Airway Clearance Goal: Patient will maintain patent airway Outcome: Progressing Goal: Patient will achieve/maintain normal respiratory rate/effort Outcome: Progressing Problem: Inadequate Breathing Pattern Goal: Patient will maintain effective ventilation Outcome: Progressing Problem: Excessive Fluid Volume Goal: Fluid and electrolyte balance are achieved/maintained Outcome: Progressing Problem: Safety - Non-violent/Interference with Medical Treatment Restraint Goal: Remains free of injury from restraints (Restraint for Interference with [facility]) Outcome: Progressing Goal: Free from restraint(s) (Restraint for Interference with [facility]) Outcome: Progressing Discussed PT recommendations, with patient and family. Agreed to home care. youth liaison officer aware. Care Management Progress Note Pulmonology, addiction med, and Cardiology following. 2 liters NC. PO antibiotics.US Liver ordered. PT recommends home with assist. Plan to go home when medically stable. Length of Stay (Days): 16 GMLOS: 12.8 Problem: Knowledge Deficit Goal: Patient/family/caregiver demonstrates understanding of disease process, treatment plan, medications, and discharge instructions Outcome: Progressing Flowsheets (Taken 01/08/2025 0606) Patient/family/caregiver demonstrates understanding of disease process, treatment plan, medications, and discharge instructions: Complete learning assessment and assess knowledge base Provide teaching via preferred learning methods Provide teaching at level of understanding Problem: Potential for Compromised Skin Integrity Goal: Skin Integrity is Maintained or Improved Outcome: Progressing Flowsheets (Taken 01/08/2025 0606) Skin integrity is maintained or improved: Assess and monitor skin integrity Turn patient Avoid shearing Identify patients at risk for skin breakdown on admission and per policy Attempted to evaluate patient today, but he was off the floor. Reviewed chart and CT images. Findings are concerning for lung abscess with additional evidence of resolving ARDS. Polymicrobial infection noted previously. No longer on antibiotics. Communicated with primary service- but would consider long course of antibiotics (IV vs PO depending on clinical stability). Probably will need 2-4 weeks of antibiotics. If stable, could use Augmentin. Will need repeat CT in 4-6 weeks. Problem: Knowledge Deficit Goal: Patient/family/caregiver demonstrates understanding of disease process, treatment plan, medications, and discharge instructions Outcome: Progressing Problem: Potential for Compromised Skin Integrity Goal: Skin Integrity is Maintained or Improved Outcome: Progressing Goal: Nutritional status is improving Outcome: Progressing Problem: Urinary Incontinence Goal: Perineal skin integrity is maintained or improved Outcome: Progressing Pulmonary Quick Note Pulmonary consult acknowledged, discussed with Dr. Dinero. Noted new LLL ?cavitary lesion on coronary CTA, as well as incidental RML PE. Will obtain dedicated CTA imaging of chest to assess extent of pulmonary embolic disease and lung parenchyma. Full consult note to follow. Enio Comer MD Fellow, Pulmonary and Critical Care Medicine 01/06/25 2:34 PM Images from the original note were not included. PE Response Team Triage Brief HPI: 35M PMH recent cardiac arrest. Underwent coranary CT today and noted to have incidental RML segmental PE. PERT team contacted. Hemodynamic instability: No Notable vital signs: None noted RV Strain: No Positive troponin: Yes (hs-cTn ref. range: Males>35, Females>14) Troponin HS Serial Baseline Date Value Ref Range Status 12/24/2024 1,053 (HH) <=35 ng/L Final Comment: In individuals presenting with symptoms > 2h, a baseline troponin <= 5 ng/L suggests acute cardiac injury is unlikely and further serial testing is generally not indicated. 2h Troponin HS (Serial 2nd Troponin) Date Value Ref Range Status 12/24/2024 1,633 (HH) <=35 ng/L Final Comment: Rising or falling troponin delta greater than 15 ng/L as compared to baseline value is significant for acute cardiac injury. Risk Factors No [] Saddle embolism or occlusive main PA emboli [] High flow oxygen need or respiratory distress [] Syncope [] Altered mental status (disorientation, lethargy, stupor, coma) Notable Comorbidities No [] Cancer (previous or active) [] Heart failure [] Chronic lung disease [] Concomitant DVT [] Recurrent VTE [] VTE already on anticoagulation Contraindication to Anticoagulation (AC) Contraindication to Thrombolytics No apparent contraindications noted No apparent contraindications noted [] Active, clinically significant bleeding [] Severe uncontrolled hypertension [] Anticipated or recent neuraxial anesthesia [] Invasive procedure or OB delivery Consult Neurocritical Care on-call attending before initiating anticoagulation if: [] Ischemic stroke or intracranial hemorrhage within 30 days *If ischemic stroke or ICH within 30 days, will need baseline CTH prior to starting anticoagulation* [] Structural cerebrovascular lesion or intracranial neoplasm Relative contraindications for anticoagulation -- if any of the below, consult on-call Trauma attending prior to initiating anticoagulation: [] Traumatic brain injury, including head trauma with facial fractures and negative head CT [] Spinal fractures and/or spinal cord injury [] Solid organ injuries [] Trauma-induced coagulopathy [] Geriatric trauma [] Hemothorax [] Cardiac injuries [] Pelvic fracture(s) [] Multiple extremity fractures [] Active bleeding (excluding menses) [] Severe uncontrolled hypertension [] Significant head injury or facial trauma within the last 3 months [] Recent intracranial or spinal surgery [] Possible aortic dissection Consult Neurocritical Care on-call attending before initiating thrombolysis if: [] Ischemic stroke within 3 months [] Recent intracranial hemorrhage [] Structural cerebrovascular lesion or intracranial neoplasm considerations: [] Patient is , tenecteplase is contraindicated Assessment/Recommendation: Low-Intermediate Risk PE Anticoagulation Recommendations: Eliquis 10mg BID x 7 days followed by 5mg BID Some discussion about possible procedure by cards or pulm - could utilize lovenox until then. Care Plan Recommendations: LOW-INTERMEDIATE RISK PE: Systemic anticoagulation with specialist consult Disposition Recommendations: Hospitalization for further management with Pulmonary consult - pulm already following. PE protocol orders placed by PERT [x] Serial hs-cTn q2h x 2 [x] STAT BNP and again in AM [] Formal 2D Echo [] Lower extremity duplex -- symptomatic DVT only [] Interventional Cardiology consult [] Pulmonary consult [] Consider Pulmonary consult for unrelated to PE (I.e., lung nodule, acute respiratory failure, etc) [] PE Clinic Referral -- follow-up appointment on AVS This consultation was completed remotely. The above information is based on the HPI and information provided by the primary service. Recommendations for PE treatment reflect this information and final treatment decisions and disposition are deferred to the clinical judgment of the primary service. Care Management Progress Note Needs CTA of coronary arteries. MR of heart needed. Possible home 02 eval. Cardiology following. Anticipate home when stable.. Length of Stay (Days): 13 GMLOS: 12.8 Problem: Knowledge Deficit Goal: Patient/family/caregiver demonstrates understanding of disease process, treatment plan, medications, and discharge instructions Outcome: Progressing Problem: Potential for Compromised Skin Integrity Goal: Skin Integrity is Maintained or Improved Outcome: Progressing Goal: Nutritional status is improving Outcome: Progressing Problem: Urinary Incontinence Goal: Perineal skin integrity is maintained or improved Outcome: Progressing Problem: Safety - Non-violent/Interference with Medical Treatment Restraint Goal: Remains free of injury from restraints (Restraint for Interference with Him Specialists) Outcome: Progressing Goal: Free from restraint(s) (Restraint for Interference with Him Specialists) Outcome: Progressing Problem: Problem Interventions Goal: Assess Nutritional Intake Outcome: Progressing Problem: Inadequate Airway Clearance Goal: Patient will maintain patent airway Outcome: Progressing Goal: Patient will achieve/maintain normal respiratory rate/effort Outcome: Progressing Problem: Inadequate Breathing Pattern Goal: Patient will maintain effective ventilation Outcome: Progressing Problem: Excessive Fluid Volume Goal: Fluid and electrolyte balance are achieved/maintained Outcome: Progressing SW met with pt and family. Family had photo of insurance on her phone. It appears pt has blue cross- credence. [id number] group [id number] Pt denies any current needs form [employer] at this time. SW provided info to [facility] and financial counselors about insurance. Pt transferred to . SW reviewed chart. Pt listed as self pay. SW sent email to [facility]. Per [facility], she has spoken with family. Family believes pt has insurance. Family gave [facility] info for insurance which is not medical. Per family, brother works at same company and maybe they brother can say who the insurance is thru. SW will follow. Transfer from 2. Does not have insurance. Has been weaned to RA. Needs assist getting meds. SW aware. Plan is home when stable.. Problem: Knowledge Deficit Goal: Patient/family/caregiver demonstrates understanding of disease process, treatment plan, medications, and discharge instructions Outcome: Progressing Problem: Potential for Compromised Skin Integrity Goal: Skin Integrity is Maintained or Improved Outcome: Progressing Goal: Nutritional status is improving Outcome: Progressing Problem: Urinary Incontinence Goal: Perineal skin integrity is maintained or improved Outcome: Progressing Problem: Problem Interventions Goal: Assess Nutritional Intake Outcome: Progressing Problem: Inadequate Airway Clearance Goal: Patient will maintain patent airway Outcome: Progressing Goal: Patient will achieve/maintain normal respiratory rate/effort Outcome: Progressing Problem: Inadequate Breathing Pattern Goal: Patient will maintain effective ventilation Outcome: Progressing Intervention: Oxygen therapy Recent Flowsheet Documentation Taken 01/03/2025 1000 by Javan Villa RN SpO2: 89 % ! Taken 01/03/2025 0900 by Javan Villa RN SpO2: 89 % ! Taken 01/03/2025 0800 by Javan Villa RN SpO2: 96 % Oxygen Therapy: Supplemental oxygen O2 Delivery Method: Heated high flow nasal cannula Taken 01/03/2025 0700 by Javan Villa RN SpO2: 95 % Taken 01/03/2025 0600 by Javan Villa RN SpO2: 97 % Problem: Excessive Fluid Volume Goal: Fluid and electrolyte balance are achieved/maintained Outcome: Progressing Problem: Safety - Non-violent/Interference with Medical Treatment Restraint Goal: Remains free of injury from restraints (Restraint for Interference with Him Specialists) Outcome: Progressing Goal: Free from restraint(s) (Restraint for Interference with Him Specialists) Outcome: Progressing ICU TRANSFER CHECKLIST Transfer Med Reconciliation (resume home meds if able, convert to PO if able) Complete Antibiotics (name, indication, duration, convert to PO if able) None Steroid (indication, duration, convert to PO if able) Yes, addressed in today's progress note Anticipated [place] Medications (ICU initiated) or Dose Changes and Indication No Permanently Discontinued Home Medications and Reason for medication contraindication No Alfaro Catheter (please remove if able) No Central Line (please remove if able) No Transfer Discussed with: Dr. Slade Fitzgerald If additional questions for ICU team within 24 hours of ICU transfer, page Maverick Miramontes MD for clarifications. Problem: Knowledge Deficit Goal: Patient/family/caregiver demonstrates understanding of disease process, treatment plan, medications, and discharge instructions Outcome: Progressing Problem: Potential for Compromised Skin Integrity Goal: Skin Integrity is Maintained or Improved Outcome: Progressing Goal: Nutritional status is improving Outcome: Progressing Problem: Potential for Compromised Skin Integrity Goal: Nutritional status is improving Outcome: Progressing Problem: Urinary Incontinence Goal: Perineal skin integrity is maintained or improved Outcome: Progressing Problem: Problem Interventions Goal: Assess Nutritional Intake Outcome: Progressing Problem: Inadequate Airway Clearance Goal: Patient will maintain patent airway Outcome: Progressing Goal: Patient will achieve/maintain normal respiratory rate/effort Outcome: Progressing Problem: Inadequate Breathing Pattern Goal: Patient will maintain effective ventilation Outcome: Progressing Intervention: Oxygen therapy Recent Flowsheet Documentation Taken 01/03/2025 0400 by Yisel Mendoza RN SpO2: 97 % Oxygen Therapy: Supplemental oxygen O2 Delivery Method: Heated high flow nasal cannula Taken 01/03/2025 0300 by Yisel Mendoza RN SpO2: 96 % Taken 01/03/2025 0200 by Yisel Mendoza RN SpO2: 97 % Taken 01/03/2025 0100 by Yisel Mendoza RN SpO2: 97 % Taken 01/03/2025 0000 by Yisel Mendoza RN SpO2: 95 % Oxygen Therapy: Supplemental oxygen O2 Delivery Method: Heated high flow nasal cannula Taken 01/02/2025 2300 by Yisel Mendoza RN SpO2: 96 % Taken 01/02/2025 2000 by Yisel Mendoza RN Oxygen Therapy: Supplemental oxygen O2 Delivery Method: Heated high flow nasal cannula Problem: Excessive Fluid Volume Goal: Fluid and electrolyte balance are achieved/maintained Outcome: Progressing 01/02/25 1044 Rapid Rounds Attendance Spinning Frame Cleaner Planned Discharge Disposition (TBD) Today we still await Administering IV medications;Clinical stability;Symptomatic control;Post-discharge arrangement completion (comment);Bus Escort recommendations (comment) Extubated this AM. O2 via HFNC 50% 50L. Precedex drip, IV lasix and IV steroids ongoing. PT/OT/Speech therapy evals pending. Patient does not have insurance. Referral to for possible Medicaid application. DC plan TBD. CM will continue to follow. Problem: Knowledge Deficit Goal: Patient/family/caregiver demonstrates understanding of disease process, treatment plan, medications, and discharge instructions Outcome: Progressing Problem: Potential for Compromised Skin Integrity Goal: Skin Integrity is Maintained or Improved Outcome: Progressing Goal: Nutritional status is improving Outcome: Progressing Problem: Urinary Incontinence Goal: Perineal skin integrity is maintained or improved Outcome: Progressing Problem: Safety - Non-violent/Interference with Medical Treatment Restraint Goal: Remains free of injury from restraints (Restraint for Interference with Him Specialists) Outcome: Progressing Goal: Free from restraint(s) (Restraint for Interference with Him Specialists) Outcome: Progressing Problem: Knowledge Deficit Goal: Patient/family/caregiver demonstrates understanding of disease process, treatment plan, medications, and discharge instructions Outcome: Progressing Problem: Potential for Compromised Skin Integrity Goal: Skin Integrity is Maintained or Improved Outcome: Progressing Goal: Nutritional status is improving Outcome: Progressing Problem: Urinary Incontinence Goal: Perineal skin integrity is maintained or improved Outcome: Progressing Problem: Problem Interventions Goal: Assess Nutritional Intake Outcome: Progressing Problem: Inadequate Airway Clearance Goal: Patient will maintain patent airway Outcome: Progressing Goal: Patient will achieve/maintain normal respiratory rate/effort Outcome: Progressing Problem: Inadequate Breathing Pattern Goal: Patient will maintain effective ventilation Outcome: Progressing Intervention: Oxygen therapy Recent Flowsheet Documentation Taken 01/01/2025 0000 by Darline Figueredo RN SpO2: 93 % Oxygen Therapy: Supplemental oxygen O2 Delivery Method: Ventilator Taken 12/31/2024 2300 by Darline Figueredo RN SpO2: 92 % Taken 12/31/20242199 by Darline Figueredo RN SpO2: 96 % Taken 12/31/20242099 by Darline Figueredo RN SpO2: 100 % Taken 12/31/20241999 by Darline Figueredo RN SpO2: 92 % Oxygen Therapy: Supplemental oxygen O2 Delivery Method: Ventilator Problem: Excessive Fluid Volume Goal: Fluid and electrolyte balance are achieved/maintained Outcome: Progressing Problem: Safety - Non-violent/Interference with Medical Treatment Restraint Goal: Remains free of injury from restraints (Restraint for Interference with Him Specialists) Outcome: Progressing Flowsheets (Taken 12/31/20241999) Remains free of injury from restraints (restraint for interference with medical dosimetrist): Every 2 hours: Monitor safety, psychosocial status, comfort, nutrition and hydration Goal: Free from restraint(s) (Restraint for Interference with Him Specialists) Outcome: Progressing Flowsheets (Taken 12/31/20241999) Free from restraint(s) (restraint for interference with medical dosimetrist): Assess and document the continuing need for restraints Palliative Care Interdisciplinary Team Note: Diagnosis: Principal Problem: Cardiac arrest (HCC) Chief Complaint: Chelsea Cole is a 34 y.o. 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 Patient S/P cardiac arrest. Extubated 12/28 but required reintubation later that day. This AM patient remains intubated/sedated. IV lasix. IVAB. IV steroids. CM met with visitors at bedside. They provided PW before discussion. CM introduced self and role. Contact information updated in EMR. DC plan TBD. CM will continue to follow. Problem: Knowledge Deficit Goal: Patient/family/caregiver demonstrates understanding of disease process, treatment plan, medications, and discharge instructions 12/30/2024 0516 by Chiqui Kirkland RN Outcome: Progressing 12/30/2024 0513 by Chiqui Kirkland RN Outcome: Progressing Problem: Potential for Compromised Skin Integrity Goal: Skin Integrity is Maintained or Improved 12/30/2024 05 by Chiqui Kirkland RN Outcome: Progressing 12/30/2024 05 by Chiqui Kirkland RN Outcome: Progressing Goal: Nutritional status is improving 12/30/2024 0516 by Chiqui Kirkland RN Outcome: Progressing 12/30/2024 05 by Chiqui Kirkland RN Outcome: Progressing Problem: Urinary Incontinence Goal: Perineal skin integrity is maintained or improved 12/30/2024 0516 by Chiqui Kirkalnd RN Outcome: Progressing 12/30/2024 05 by Chiqui Kirkland RN Outcome: Progressing Problem: Problem Interventions Goal: Assess Nutritional Intake 12/30/2024 0516 by Chiqui Kirkland RN Outcome: Progressing 12/30/2024 05 by Chiqui Kirkland RN Outcome: Progressing Problem: Inadequate Airway Clearance Goal: Patient will maintain patent airway Outcome: Progressing Goal: Patient will achieve/maintain normal respiratory rate/effort Outcome: Progressing Problem: Inadequate Breathing Pattern Goal: Patient will maintain effective ventilation Outcome: Progressing Intervention: Oxygen therapy Recent Flowsheet Documentation Taken 12/29/20242199 by Chiqui Kirkland RN SpO2: 93 % Taken 12/29/20242099 by Chiqui Kirkland RN SpO2: 93 % Taken 12/29/20241999 by Chiqui Kirkland RN SpO2: 94 % Oxygen Therapy: Supplemental oxygen Problem: Excessive Fluid Volume Goal: Fluid and electrolyte balance are achieved/maintained Outcome: Progressing Problem: Knowledge Deficit Goal: Patient/family/caregiver demonstrates understanding of disease process, treatment plan, medications, and discharge instructions Outcome: Progressing Problem: Potential for Compromised Skin Integrity Goal: Skin Integrity is Maintained or Improved Outcome: Progressing Goal: Nutritional status is improving Outcome: Progressing Problem: Urinary Incontinence Goal: Perineal skin integrity is maintained or improved Outcome: Progressing Problem: Problem Interventions Goal: Assess Nutritional Intake Outcome: Progressing Problem: Knowledge Deficit Goal: Patient/family/caregiver demonstrates understanding of disease process, treatment plan, medications, and discharge instructions Outcome: Progressing Problem: Potential for Compromised Skin Integrity Goal: Skin Integrity is Maintained or Improved Outcome: Progressing Goal: Nutritional status is improving Outcome: Progressing Problem: Urinary Incontinence Goal: Perineal skin integrity is maintained or improved Outcome: Progressing Problem: Problem Interventions Goal: Assess Nutritional Intake Outcome: Progressing Care Management Progress Note Extubated this morning. Speech eval pending. IV Solucortef 50mg Q8 and Zosyn 4,5gm Q6, Precedex gtt. EEG continuous. Echo completed with results pending. CXR showed Diffuse bilateral infiltrate or edema worse on the right. There is mildly worsening aeration within the right mid and upper lung when compared to the study from the day prior. CK continuing to trend down, 4747 today. EP following for need for ICD. MRI brain cancelled to increased responsiveness since extubated. Length of Stay (Days): 4 GMLOS: 4.9 Palliative Care Interdisciplinary Team Note: Diagnosis: Principal Problem: Cardiac arrest (HCC) Chief Complaint: Chelsea Cole is a 34 y.o. male with chief complaint of: cardiac arrest Reason Palliative Following:Goals of Care and Support Plan:Ongoing Goals of Care Discussions Code Status: Full Code Medications: Palliative Care Not Managing Any Medications Nursing: Symptom Monitoring Social Work: No Unmet Needs Spiritual Care: Community Clergy [facility] [place] requested Pharmacy: No Unmet Needs Psychology/Psychiatry: No Unmet Needs Images from the original note were not included. [facility] Palliative Care Transitions of Care Note Patient clinically improving, goals of care established. Palliative care signing off at this time, please call with questions Chelsea Cole has been seen in consultation by [facility] Palliative [facility] during their admission to [facility]. They currently have established goals of care and we have signed off of their case. The patient has established follow-up with PCP. Susu Ren MD Care Management Progress Note Patient admitted to [facility] from [facility], V-Fib arrest, sedated/intubated, Levophed/Vasopressing gtts, IV Abx and IV steroids. Discharge plan TBD. Length of Stay (Days): 2 GMLOS: No GMLOS Documented documented in this encounter [facility] 01-09-2025 Nurse Note AVS instructions given. IV removed. Meds to beds delivered. Patient and family have no further questions or concerns at this time. Patient discharged to home via family. Patient is requesting to go off the floor to cafeteria. RN stated that pt is on a heart monitor ans is not remitted to leave the floor. DR. Wilson up at the nurses station with pt and RN. Dr. Wilson stated that pt can go off the floor. In to draw a.m. labs, but patient refused. Said he is agreeable to having iv placed by day nurse and will allow lab draw at that time MRI screening form reviewed with patient, patient agreeable to IV insertion tomorrow morning before procedure. Patient agreeable to metoprolol for procedure. Patient refusing labs at this time. Wound Care consulted for Pressure Injury Prevention. Pt's Steve score= 10 on 12/29 Pt's pressure points assessed. Pt intubated and sedated. Pt's Heels, Buttocks/coccyx, Back, Elbows, Occiput and ears all intact. Prevention Measures in place, including: [place] sheet with pillows/wedges, Foam heel protectors (in place), Heels elevated off bed on pillows, Sacral foam (in place), Zinc/Moisture Barrier ointment, Waffle chair cushion (obtained for pt). Skin Care precaution order set in place. Dietitian consult in place. PT/OT consult in place. D/W nursing staff. Will continue to follow pt. Please Voicera for any questions or concerns. Padmini Wyatt RN, BSN, CWCN documented in this encounter [facility] 01-09-2025 History of Presen t illness Narrative [id number][[id number]] Respiratory Therapy Home O2 Progress Note O2 saturation at rest on room air: 99% If saturation is 88% or less O2 saturation on O2 at NA LPM while at rest: NA O2 saturation on exertion must be checked if patient is able regardless of O2 saturation at rest O2 saturation with exertion on room air: 95% (NA if patient needs O2 at rest) O2 saturation on O2 at 3 LPM with exertion: 100% Patient meets criteria for home O2 Y/N = N Patient mobile at home Y/N = Y DME Notified N Images from the original note were not included. PHYSICAL THERAPY [facility] Treatment Note Name/MRN: Chelsea Cole ([id number]) Date of : 1990 Age: 35 y.o. Room/Bed: [facility] Discharge Recommendation: Home with assist PRN (pt would benefit from outpatient cardio/pulmonary rehab for endurance) Equipment Needed: No Other: tbd Assessment The pt met his goals and has no additional acute care therapy needs at this time. Home with assist as needed and outpatient/cardiac therapy is recommended at discharge. No LOB or unsafe behavior was observed this date. SOB was reported post stair ascent and the pt reported that his legs felt heavy. Subjective Pt in bed and agreed to PT. Overall improvement is reported. Pain: Pt denies any current pain. Medical Precautions: No active isolations Proper PPE donned/doffed in accordance with facility standards. Fall Risk: Hassan Fall Risk Score: 0 (Low Risk) Precautions/Restrictions: Lines/Drains/Airways: O2 Overall Cognitive Status: WFL Overall Orientation Status: Oriented x4 Family/Caregiver Present: significant other Objective Bed Mobility Supine to sit: Modified Independent Sit to supine: Modified Independent Scooting: Modified Independent Use of bed rail(s) Transfers/Mobility Sit to stand: Independent Stand to sit: Independent From EOB Device(s) used: None Ambulation Ambulation 1 Assistive device(s) used: None Assist level: Independent Distance (ft): 200 Quality of gait: reciprocal stepping Stairs Stairs 1 Assistive device(s) used: None Assist level: Supervision # of steps: 8 Rails: right Additional factors: reciprocal going up, reciprocal going down, pt did have one episode of unsteadiness when he did not step high enough to clear the step but self corrected. No LOB. SOB reported on steps and standing breaks needed. Plan Discharge pt from acute PT. Safety/Education Safety Safety Devices in place: call light within reach, left in bed, and no alarms engaged upon entry Restraints: No Education Education Given To: patient Education Provided: PT Role, Plan of Care, and Discharge Recommendations Education Method: Verbal Barriers to Learning: None Education Outcome: Verbalized Understanding Outcome Measures AM-PAC AM-PAC Inpatient Mobility Raw Score : 24 AM-PAC Inpatient Mobility Raw Score (No Stairs) : 20 JH-HLM JH-HLM Score: Walked 25 ft or more (i.e. walked outside of room) Goals Patient Stated Goal: to get stronger Encounter Problems Encounter Problems (Active) Balance Patient will maintain dynamic standing balance for 3 minutes with modified independence in order to demonstrate decreased risk of falling. (Adequate for Discharge) Start: 01/04/25 Expected End: 02/01/25 Mobility Patient will ambulate 250 feet with modified independence and no assistive device in order to improve safety and independence with mobility. (Adequate for Discharge) Start: 01/04/25 Expected End: 02/01/25 Patient will ascend and descend 1 flight stairs with one railing and supervision in order to safely negotiate home. (Adequate for Discharge) Start: 01/04/25 Expected End: 02/01/25 Encounter Problems (Resolved) Transfers Patient will perform bed mobility with modified independence in order to improve independence and prepare for out of bed mobility. (Completed) Start: 01/04/25 Expected End: 02/01/25 Resolved: 01/09/25 Patient will complete functional transfer with no assistive device with modified independence in order to prepare for ambulation. (Completed) Start: 01/04/25 Expected End: 02/01/25 Resolved: 01/09/25 Therapy Time Individual Co-treatment Time In 1012 Time Out 1020 Minutes 8 Timed Code Treatment Minutes: 8 Minutes (one FA) Jamey Reyes PT Hospitalist Progress Note - [facility] - [employer] ([facility]) 01/08/2025 9:24 AM [phone]: Please page me for patient care issues. [phone]: Please page [facility] Hospitalist - [facility] [place] for any issues. Subjective and Objective: Admit Date: 12/24/2024 PCP: Breanna Roman No chief complaint on file. Hospital course: ICU course per note 01/04: "34 yo M presented as tx from [place] in vfib cardiac arrest. Received 12 minutes of CPR and intubated prior to tx. Initially admitted under CCU and tx to MICU as patient also with severe PNA, ARDS. Proned 12/25-12/27, stabilized, and extubated 12/28. Unfortunately re-intubated same day d/t severe delirium (though neurologically intact.. following all commands, verbal, etc) and worsened noncardiogenic edema from ARDS. Extubated to [facility]." Pt transferred to [facility] 01/05. Cardiology following, completed CMR and CT coronary, significant for lung abscess and PE. Without evidence of ischemia or myocardial scarring, per cardiology notes "will defer secondary prevention ICD at this time as his initial arrest was likely pulmonary given the findings on his CT scan, lack of scarring on cMRI, initial RV dysfunction on his presentation ECHO, and lack of EKG changes or abnormalities on his telemetry" Suspect initial arrest was Likely PEA and hypoxia given finding of large PE and RV dysfunction noted on admission ECHO" Pulmonary embolism team consulted for incidental RML PE. Dedicated CTPE 01/06 redemonstrated segmental PE in RML, but also revealed some smaller filling defects within branches of CHARMAINE. Pt clinically stable with pBNP 145 (improved since admission), normal HST. Started and therapeutic lovenox and transitioned to PO eliquis on discharge. Pulmonology consulted for incidental findings of LLL cavitary lesion. CT chest w/ contrast revealed "a 3.7 cm cavitary area within the posterior aspect of the left lower lobe. Dense consolidation within the superior segment of the right lower lobe also demonstrates multiple smaller cystic or cavitary areas. Coarse reticular and groundglass infiltrates within the lungs bilaterally in a predominantly central distribution, nonspecific in appearance." Per pulm, findings consistent with focal lung abscess and resolving ARDS. Recommend minimum of 3 additional weeks of antibiotics with repeat CT chest in 4-6 weeks as outpatient. Discharged with 3 week course augmentin. Pt discharged with home O2. Seen by addiction medicine for alcohol use disorder and sequale including ultrasound findings with coarsened liver appearance suggesting possible cirrhosis. Pt referred to GI on discharge. Interval Updates (addendum): 01/08/25 -Per pulm, findings consistent with focal lung abscess and resolving ARDS. Recommend minimum of 3 additional weeks of antibiotics with repeat CT chest in 4-6 weeks as outpatient. Discharged with 3 week course augmentin. Pt discharged with home O2. -Transition to eliquis tonight -Transition to augmentin tonight -Liver doppler tomorrow AM r/o debra sndyer NPO midnight Adult diet Regular Dietary Orders (From admission, onward) Start Ordered 01/03/25 1013 Adult diet Regular Diet effective now Question: Diet type Answer: Regular 01/03/25 1013 No intake/output data recorded. @[email or web address]@ @[email or web address]@ Medications: Continuous Meds[1] Scheduled Meds[2] Recent Labs 01/06/25 0753 01/07/25 0613 01/08/25 0246 WBC 10.2 9.6 8.0 HGB 11.3* 12.4* 11.4* PLT 439 474* 490* Recent Labs 01/06/25 0753 01/07/25 0613 01/08/25 0246 NA 139 137 137 K 4.2 4.5 4.2 CL 111* 108* 108* CO2 20* 17* 19* BUN 19 15 11 CREATININE 0.85 0.94 0.76 GLUCOSE 104* 96 91 Recent Labs 01/06/25 0753 01/07/25 0613 01/08/25 0246 AST 203* 152* 105* ALT 358* 335* 288* BILITOT 0.6 0.4 0.6 ALKPHOS 110 114 108 No results found for: "TRIG", "HDL", "LDLCALC", "CHOL" No results found for: "PHART", "PO2ART", "YUR0RGG" Recent Labs 01/06/25 0753 INR 1.1 No results for input(s): "CKTOTAL", "CKMB", "TROPONINI" in the last 72 hours. No results for input(s): "DDIMER" in the last 72 hours. No results found for: "HGBA1C" No results found for: "TSH" Urine Culture: Results for orders placed or performed during the hospital encounter of 12/24/24 Urine culture Collection Time: 12/25/24 1:18 AM Specimen: Urine, Clean Catch Result Value Ref Range Urine Culture No growth (<1,000 CFU/mL) Objective: Vitals: BP 121/87 (BP Location: Right arm, Patient Position: Lying) Pulse 94 Temp 36.6 C (97.8 F) (Temporal) Resp 22 Ht 5' 6" (1.676 m) Wt 136 lb 1.6 oz (61.7 kg) SpO2 98% BMI 21.97 kg/m Pulse Ox: SpO2 Av % Min: 94 % Max: 98 % Physical Exam Vitals reviewed. HENT: Mouth/Throat: Mouth: Mucous membranes are moist. Eyes: Extraocular Movements: Extraocular movements intact. Cardiovascular: Rate and Rhythm: Normal rate. Pulses: Normal pulses. Pulmonary: Effort: No respiratory distress. Breath sounds: No stridor. Rhonchi present. No wheezing or rales. Abdominal: General: There is no distension. Palpations: Abdomen is soft. Musculoskeletal: Right lower leg: No edema. Left lower leg: No edema. Skin: General: Skin is warm and dry. Neurological: Mental Status: He is alert. Psychiatric: Mood and Affect: Affect is flat. ANATOMY/TUBES/LINES: N/A Running Summary, Assessment, and Plan Acute, acute on chronic, unstable/uncontrolled chronic problems/diagnoses: Acute hypoxic respiratory failure requiring intubation 2/2 ARDS, Bilateral strep pneumo, H. Flu CAP, pulmonary edema, improved Concern for LLL lung abscess- tx 2-4 week abx, started unasyn with plan to transition to augmentin on discharge, follow up OP and reimage in 4-6 weeks Septic shock, resolved V fib arrest, suspect PEA Potential methadone and alcohol withdrawal Tobacco abuse Delirium (resolved) Hypernatremia - resolved ABRIL - resolved Rhabdomyolysis, resolved Transaminitis Abd US 12/25: 1. Gallbladder wall thickening. No cholelithiasis. Correlate clinically. 2. Coarsened appearance the liver, which may suggest cirrhosis. Correlate clinically. 3. Decreased flow within the splenic vein on color Doppler evaluation, which may be technical. There is flow noted on spectral Doppler evaluation. Dedicated duplex ultrasound of the liver could be performed for further evaluation. 4. Heterogeneous appearance of the pancreas, which is nonspecific. -Refer for GI follow up on discharge -liver doppler ordered Hyperglycemia Hypokalemia AUD - 8 beers daily "for a long time" - addiction medicine consulted, appreciated recs Pulmonary embolism - unclear if provoked, started on AC (therapeutic lovenox, transition to eliquis) Stable chronic problems affecting care, new non-acute diagnoses: N/a As a result of the above findings & factors, the following mgmt was pursued: - Appreciated pulm recs: min 3 week augmentin + 4-6 week repeat imaging, outpatient follow up. Rec outpatient follow up to determine length of treatment as unclear if provoked or unprovoked. Min 3 month tx. -DC Am seroquel, cont nightly on d/c -Glucose stable, stopped monitoring -Folate and thiamine supplementation - am labs, replace lytes prn - PT/OT/CM/SW as appropriate - delirium precautions: limit night-time awakening - DVT prophylaxis: lovenox Complexity: Acute illness or injury posing a threat to life or body function (HIGH). Risk: Admission to hospital-level care was considered or occurred (HIGH). Anticipated Discharge - Date - likely 01/09 - Location - home - Pending the following - walking Pox, chang check eliquis Total time spent (which include face to face and non face to face encounters) in minutes: 51 Extended Emergency Contact Information Primary Emergency Contact: Olga Gibbons Mobile Relation: Significant Other Preferred language: Turkmen Secondary Emergency Contact: Maria L Novoa Mobile Relation: Mother Preferred language: Turkmen Luan Wilson MD Division of Hospitalist Medicine Inpatient Medical Services/[facility] [1] [2] [START ON 01/09/2025] amoxicillin-clavulanate, 875 mg, Oral, 2 times per day ampicillin-sulbactam, 3,000 mg, IntraVENous, q6h enoxaparin, 1 mg/kg, SubCUTAneous, q12h folic acid, 1 mg, Oral, Daily Lidocaine, 1 patch, TransDERmal, Daily Lidocaine, 1 patch, TransDERmal, Daily pantoprazole, 40 mg, Oral, Nightly Or pantoprazole (ProtoNix) 40 mg in sodium chloride (PF) 0.9 % 10 mL injection, 40 mg, IntraVENous, Nightly QUEtiapine, 100 mg, Oral, Nightly QUEtiapine, 50 mg, Oral, q AM thiamine, 100 mg, Oral, Daily Hospitalist Progress Note - [facility] - [employer] ([facility]) 01/07/2025 11:22 AM [phone]: Please page me for patient care issues. [phone]: Please page [facility] Hospitalist - [facility] for any issues. Subjective and Objective: Admit Date: 12/24/2024 PCP: Breanna Roman No chief complaint on file. Hospital course: ICU course per note 01/04: "34 yo M presented as tx from [place] in vfib cardiac arrest. Received 12 minutes of CPR and intubated prior to tx. Initially admitted under CCU and tx to MICU as patient also with severe PNA, ARDS. Proned 12/25-12/27, stabilized, and extubated 12/28. Unfortunately re-intubated same day d/t severe delirium (though neurologically intact.. following all commands, verbal, etc) and worsened noncardiogenic edema from ARDS. Extubated to [facility]." Pt transferred to [facility] 01/05. Interval Updates (addendum): 01/07/25 -Labs relatively stable, bicarb 17 (20) with borderline gap, BHB added. Leuks ok. -Still on 4L NC, work on weaning as tolerated. Tachypneic per chart review, borderline tachycardic. Cont aggressive BPH. -Discussed case with pulm (pt not in room when they stopped by) - recommended starting abx tx for suspected lung abscess, follow up repeat imaging in 4-6 weeks. Pt started on iv unasyn with plan to transition to PO augmentin for anticipated discharge Thursday. -Needs transition to DOAC prior to dc, consider tomorrow if remains clinically stable and no intervention planned Adult diet Regular Dietary Orders (From admission, onward) Start Ordered 01/03/25 1013 Adult diet Regular Diet effective now Question: Diet type Answer: Regular 01/03/25 1013 I/O last 3 completed shifts: In: 1200 (19.1 mL/kg) [P.O.:1200] Out: 0 (0 mL/kg) Weight: 62.9 kg @IODETAILS@ @[email or web address]@ Medications: Continuous Meds[1] Scheduled Meds[2] Recent Labs 01/05/25 12501/06/25 07501/07/25 0613 WBC 10.5 10.2 9.6 HGB 12.9* 11.3* 12.4* PLT 487* 439 474* Recent Labs 01/05/25 12501/06/25 0753 01/07/25 0613 NA 143 139 137 K 3.2* 4.2 4.5 CL 110* 111* 108* CO2 22 20* 17* BUN 22* 19 15 CREATININE 0.94 0.85 0.94 GLUCOSE 135* 104* 96 Recent Labs 01/05/25 12501/06/2575201/07/25 0613 AST 212* 203* 152* ALT 294* 358* 335* BILITOT 0.7 0.6 0.4 ALKPHOS 125 110 114 No results found for: "TRIG", "HDL", "LDLCALC", "CHOL" No results found for: "PHART", "PO2ART", "TPT0XLC" Recent Labs 01/06/25 0753 INR 1.1 No results for input(s): "CKTOTAL", "CKMB", "TROPONINI" in the last 72 hours. No results for input(s): "DDIMER" in the last 72 hours. No results found for: "HGBA1C" No results found for: "TSH" Urine Culture: Results for orders placed or performed during the hospital encounter of 12/24/24 Urine culture Collection Time: 12/25/24 1:18 AM Specimen: Urine, Clean Catch Result Value Ref Range Urine Culture No growth (<1,000 CFU/mL) Objective: Vitals: BP 130/83 (BP Location: Left arm, Patient Position: Lying) Pulse 100 Temp 36.2 C (97.2 F) (Temporal) Resp 24 Ht 5' 6" (1.676 m) Wt 138 lb 9.6 oz (62.9 kg) SpO2 96% BMI 22.37 kg/m Pulse Ox: SpO2 Av.8 % Min: 93 % Max: 98 % Physical Exam Vitals reviewed. HENT: Mouth/Throat: Mouth: Mucous membranes are moist. Eyes: Extraocular Movements: Extraocular movements intact. Cardiovascular: Rate and Rhythm: Normal rate. Pulses: Normal pulses. Pulmonary: Effort: No respiratory distress. Breath sounds: No stridor. Rales present. No wheezing or rhonchi. Abdominal: General: There is no distension. Palpations: Abdomen is soft. Musculoskeletal: Right lower leg: No edema. Left lower leg: No edema. Skin: General: Skin is warm and dry. Neurological: Mental Status: He is alert. Psychiatric: Mood and Affect: Affect is flat. ANATOMY/TUBES/LINES: N/A Running Summary, Assessment, and Plan Acute, acute on chronic, unstable/uncontrolled chronic problems/diagnoses: Acute hypoxic respiratory failure requiring intubation 2/2 ARDS, Bilateral strep pneumo, H. Flu CAP, pulmonary edema, improved Concern for LLL lung abscess- tx 2-4 week abx, started unasyn with plan to transition to augmentin on discharge, follow up OP and reimage in 4-6 weeks Septic shock, resolved V fib arrest, suspect PEA Potential methadone and alcohol withdrawal Tobacco abuse Delirium (resolved) Hypernatremia - resolved ABRIL Rhabdomyolysis, resolved Transaminitis Abd US 12/25: 1. Gallbladder wall thickening. No cholelithiasis. Correlate clinically. 2. Coarsened appearance the liver, which may suggest cirrhosis. Correlate clinically. 3. Decreased flow within the splenic vein on color Doppler evaluation, which may be technical. There is flow noted on spectral Doppler evaluation. Dedicated duplex ultrasound of the liver could be performed for further evaluation. 4. Heterogeneous appearance of the pancreas, which is nonspecific. -Refer for GI follow up on discharge Hyperglycemia Hypokalemia AUD - 8 beers daily "for a long time" - addiction medicine consulted, appreciated recs Pulmonary embolism - started on AC (therapeutic lovenox, transition to eliquis) Stable chronic problems affecting care, new non-acute diagnoses: N/a As a result of the above findings & factors, the following mgmt was pursued: - Wean oxygen as tolerated. Educated on IS. Home O2 eval prior to discharge. -Pending CT coronary and CMR for ICD need without evidence of ischemia or myocardial scarring, will defer ICD placement. "will defer secondary prevention ICD at this time as his initial arrest was likely pulmonary given the findings on his CT scan, lack of scarring on cMRI, initial RV dysfunction on his presentation ECHO, and lack of EKG changes or abnormalities on his telemetry" Suspect initial arrest was Likely PEA and hypoxia given finding of large PE and RV dysfunction noted on admission ECHO" Incidental findings of LLL cavitary lesion -> pulm consulted, appreciated prelim recs, follow up formal. Incidental findings of RML PE, PERT consulted and agree with medical mgmt with OAC given clinical stability (pBNP 145, improved; HST wnl). Started on therapeutic lovenox for now. Dedicated CTPE 01/06 redemonstrated segmental PE in RML, but also revealed some smaller filling defects within branches of CHARMAINE. CT chest w/ contrast also revealed "a 3.7 cm cavitary area within the posterior aspect of the left lower lobe. Dense consolidation within the superior segment of the right lower lobe also demonstrates multiple smaller cystic or cavitary areas. Coarse reticular and groundglass infiltrates within the lungs bilaterally in a predominantly central distribution, nonspecific in appearance." -Addiction medicine consult for tomorrow for AUD Seen by addiction 01/06, reported pt minimizing consumption and declined pharm or social support. -Aggressive pulmonary hygiene -Diuresis discontinued, monitor volume status -Continue seroquel 50 mg qAM, 100 mg at bedtime. Haldol PRN -Glucose stable, stopped monitoring -Folate and thiamine supplementation - am labs, replace lytes prn - PT/OT/CM/SW as appropriate - delirium precautions: limit night-time awakening - DVT prophylaxis: lovenox Complexity: Acute illness or injury posing a threat to life or body function (HIGH). Risk: Admission to hospital-level care was considered or occurred (HIGH). Anticipated Discharge - Date - likely 01/09 - Location - home - Pending the following - wean O2, transition to DOAC Total time spent (which include face to face and non face to face encounters) in minutes: 51 Extended Emergency Contact Information Primary Emergency Contact: Olga Gibbons Mobile Relation: Significant Other Preferred language: Turkmen Secondary Emergency Contact: Maria L Novoa Mobile Relation: Mother Preferred language: Turkmen Luan Wilson MD Division of Hospitalist Medicine Inpatient Medical Services/[facility] [1] [2] chlorhexidine, , Topical, Daily enoxaparin, 1 mg/kg, SubCUTAneous, q12h folic acid, 1 mg, Oral, Daily Lidocaine, 1 patch, TransDERmal, Daily Lidocaine, 1 patch, TransDERmal, Daily pantoprazole, 40 mg, Oral, Nightly Or pantoprazole (ProtoNix) 40 mg in sodium chloride (PF) 0.9 % 10 mL injection, 40 mg, IntraVENous, Nightly QUEtiapine, 100 mg, Oral, Nightly QUEtiapine, 50 mg, Oral, q AM sodium chloride 0.9%, 5-40 mL, IntraCATHeter, q8h thiamine, 100 mg, Oral, Daily Images from the original note were not included. PHYSICAL THERAPY [facility] Treatment Note Name/MRN: Chelsea Cole ([id number]) Date of : 1990 Age: 35 y.o. Room[facility]: [facility] Discharge Recommendation: Home with assist PRN (pt may benefit from cardiac rehab) Other: tbd Assessment The pt is making good progress towards his goals and will continue to benefit from therapy for the listed impairments and to improve his overall functional capacity. Home with assist as needed and cardiac therapy is recommended at discharge. No LOB or unsafe behavior was observed this date. Minimal dizziness and SOB was reported with activity. Overall endurance remains below baseline. Subjective Pt in bed and agreed to PT. Pt does feel like he is making progress. Pain: Pt denies any current pain. Medical Precautions: No active isolations Proper PPE donned/doffed in accordance with facility standards. Fall Risk: Hassan Fall Risk Score: 35 (Medium Risk) Precautions/Restrictions: Lines/Drains/Airways: O2 Overall Cognitive Status: WFL Overall Orientation Status: Oriented x4 Family/Caregiver Present: friend Objective Bed Mobility Supine to sit: Supervision Sit to supine: Supervision HOB Elevated Use of bed rail(s) Transfers/Mobility Sit to stand: Supervision Stand to sit: Supervision From EOB Device(s) used: None Ambulation Ambulation 1 Assistive device(s) used: O2 tank roller Assist level: Supervision Distance (ft): 310 Quality of gait: reciprocal with decreased velocity, Balance During Session: Posture: good Sitting - Static: Independent Sitting - Dynamic: Supervision Standing - Static: Supervision Standing - Dynamic: Supervision Pt able to stand at commode and void with distant supervision and wash hands at the sink with distant supervision. Plan Continue acute PT per plan of care. Safety/Education Safety Safety Devices in place: call light within reach, left in bed, and no alarms engaged upon entry Restraints: No Education Education Given To: patient Education Provided: PT Role and Plan of Care Education Method: Verbal Barriers to Learning: None Education Outcome: Verbalized Understanding Outcome Measures AM-PAC AM-PAC Inpatient Mobility Raw Score (No Stairs) : 18 JH-HLM JH-HLM Score: Walked 250 ft or more (i.e. several laps on unit) Goals Patient Stated Goal: to get stronger Encounter Problems Encounter Problems (Active) Balance Patient will maintain dynamic standing balance for 3 minutes with modified independence in order to demonstrate decreased risk of falling. (Progressing) Start: 01/04/25 Expected End: 02/01/25 Mobility Patient will ambulate 250 feet with modified independence and no assistive device in order to improve safety and independence with mobility. (Progressing) Start: 01/04/25 Expected End: 02/01/25 Patient will ascend and descend 1 flight stairs with one railing and supervision in order to safely negotiate home. (Not Addressed) Start: 01/04/25 Expected End: 02/01/25 Transfers Patient will perform bed mobility with modified independence in order to improve independence and prepare for out of bed mobility. (Progressing) Start: 01/04/25 Expected End: 02/01/25 Patient will complete functional transfer with no assistive device with modified independence in order to prepare for ambulation. (Progressing) Start: 01/04/25 Expected End: 02/01/25 Therapy Time Individual Co-treatment Time In 1153 Time Out 1201 Minutes 8 Timed Code Treatment Minutes: 8 Minutes (one gait) Jamey Reyes PT Hospitalist Progress Note - [facility] - [employer] ([facility] [place] [facility]) 2025 11:35 AM [phone]: Please page me for patient care issues. [phone]: Please page [facility] Hospitalist - [facility] for any issues. Subjective and Objective: Admit Date: 12/24/2024 PCP: Breanna Roman No chief complaint on file. Hospital course: ICU course per note 01/04: "34 yo M presented as tx from [place] in vfib cardiac arrest. Received 12 minutes of CPR and intubated prior to tx. Initially admitted under CCU and tx to MICU as patient also with severe PNA, ARDS. Proned 12/25-12/27, stabilized, and extubated 12/28. Unfortunately re-intubated same day d/t severe delirium (though neurologically intact.. following all commands, verbal, etc) and worsened noncardiogenic edema from ARDS. Extubated to [facility]." Pt transferred to [facility] 01/05. Interval Updates: 01/06/25 (addendum) -Toprol increased to 100mg last night. Pt with relatively stable labs, vitals today. Was feeling SOB when seen, discussed IS use - pt said he'll start using it today. Transaminitis stable, discussed recent image findings concerning for cirrhosis and need for OP follow up. -Pending CT coronary and CMR, follow up cards recs -> without evidence of ischemia or myocardial scarring, will defer ICD placement. "will defer secondary prevention ICD at this time as his initial arrest was likely pulmonary given the findings on his CT scan, lack of scarring on cMRI, initial RV dysfunction on his presentation ECHO, and lack of EKG changes or abnormalities on his telemetry" Suspect initial arrest was Likely PEA and hypoxia given finding of large PE and RV dysfunction noted on admission ECHO" Incidental findings of LLL cavitary lesion -> pulm consulted, appreciated prelim recs, follow up formal. Incidental findings of RML PE, PERT consulted and agree with medical mgmt with OAC given clinical stability (pBNP 145, improved; HST wnl). Started on therapeutic lovenox for now. Dedicated CTPE 01/06 redemonstrated segmental PE in RML, but also revealed some smaller filling defects within branches of CHARMAINE. CT chest w/ contrast also revealed "a 3.7 cm cavitary area within the posterior aspect of the left lower lobe. Dense consolidation within the superior segment of the right lower lobe also demonstrates multiple smaller cystic or cavitary areas. Coarse reticular and groundglass infiltrates within the lungs bilaterally in a predominantly central distribution, nonspecific in appearance." Seen by addiction, reported pt minimizing consumption and declined pharm or social support. 01/05 -No labs discussed with pt and nursing, pt refused again - will obtain, follow up later today ->K+ 3.2, repleted 80meq PO. Transaminitis without obstructive pattern, trend for now. Metop ordered for planned CTA and MRI tomorrow. -Pt reports still with some SOB, educated on IS use. Wean O2 as tolerated. No new sx including chest pain, palpitations, cough, syncope/presyncope. -Appreciated cards recs: cardiac MRI to assess for ICD need, tele ordered Adult diet Regular Dietary Orders (From admission, onward) Start Ordered 01/03/25 1013 Adult diet Regular Diet effective now Question: Diet type Answer: Regular 01/03/25 1013 I/O last 3 completed shifts: In: 1380 (22 mL/kg) [P.O.:1380] Out: 0 (0 mL/kg) Weight: 62.8 kg @IODETAILS@ @[id number]@ Medications: Continuous Meds[1] Scheduled Meds[2] Recent Labs 01/05/25 1251 01/06/25 0753 WBC 10.5 10.2 HGB 12.9* 11.3* PLT 487* 439 Recent Labs 01/05/25 1251 01/06/25 0753 NA 143 139 K 3.2* 4.2 CL 110* 111* CO2 22 20* BUN 22* 19 CREATININE 0.94 0.85 GLUCOSE 135* 104* Recent Labs 01/05/25 1251 01/06/25 0753 AST 212* 203* ALT 294* 358* BILITOT 0.7 0.6 ALKPHOS 125 110 No results found for: "TRIG", "HDL", "LDLCALC", "CHOL" No results found for: "PHART", "PO2ART", "[id number]" Recent Labs 01/06/25 0753 INR 1.1 No results for input(s): "CKTOTAL", "CKMB", "TROPONINI" in the last 72 hours. No results for input(s): "DDIMER" in the last 72 hours. No results found for: "HGBA1C" No results found for: "TSH" Urine Culture: Results for orders placed or performed during the hospital encounter of 12/24/24 Urine culture Collection Time: 12/25/24 1:18 AM Specimen: Urine, Clean Catch Result Value Ref Range Urine Culture No growth (<1,000 CFU/mL) Objective: Vitals: BP 107/66 Pulse 72 Temp 36.6 C (97.8 F) (Temporal) Resp 18 Ht 5' 6" (1.676 m) Wt 138 lb 6.4 oz (62.8 kg) SpO2 94% BMI 22.34 kg/m Pulse Ox: SpO2 Av % Min: 93 % Max: 96 % Physical Exam Vitals reviewed. HENT: Mouth/Throat: Mouth: Mucous membranes are moist. Eyes: Extraocular Movements: Extraocular movements intact. Cardiovascular: Rate and Rhythm: Normal rate. Pulses: Normal pulses. Pulmonary: Effort: No respiratory distress. Breath sounds: No stridor. Rales present. No wheezing or rhonchi. Abdominal: General: There is no distension. Palpations: Abdomen is soft. Musculoskeletal: Right lower leg: No edema. Left lower leg: No edema. Skin: General: Skin is warm and dry. Neurological: Mental Status: He is alert. Psychiatric: Mood and Affect: Affect is flat. ANATOMY/TUBES/LINES: N/A Running Summary, Assessment, and Plan Acute, acute on chronic, unstable/uncontrolled chronic problems/diagnoses: Acute hypoxic respiratory failure requiring intubation 2/2 ARDS, Bilateral strep pneumo, H. Flu CAP, pulmonary edema, improved Septic shock, resolved V fib arrest Potential methadone and alcohol withdrawal Tobacco abuse Delirium Hypernatremia - resolved ABRIL Rhabdomyolysis, resolved Transaminitis Abd US 12/25: 1. Gallbladder wall thickening. No cholelithiasis. Correlate clinically. 2. Coarsened appearance the liver, which may suggest cirrhosis. Correlate clinically. 3. Decreased flow within the splenic vein on color Doppler evaluation, which may be technical. There is flow noted on spectral Doppler evaluation. Dedicated duplex ultrasound of the liver could be performed for further evaluation. 4. Heterogeneous appearance of the pancreas, which is nonspecific. Hyperglycemia Hypokalemia AUD - 8 beers daily "for a long time" - addiction medicine consulted Stable chronic problems affecting care, new non-acute diagnoses: N/a As a result of the above findings & factors, the following mgmt was pursued: - Wean oxygen as tolerated. Educated on IS. Home O2 eval prior to discharge. -Pending CT coronary and CMR for ICD need -Addiction medicine consult for tomorrow for AUD -Aggressive pulmonary hygiene -Diuresis discontinued, monitor volume status -Continue seroquel 50 mg qAM, 100 mg at bedtime. Haldol PRN -Glucose stable, stopped monitoring -Folate and thiamine supplementation - am labs, replace lytes prn - PT/OT/CM/SW as appropriate - delirium precautions: limit night-time awakening - DVT prophylaxis: lovenox Complexity: Acute illness or injury posing a threat to life or body function (HIGH). Risk: Admission to hospital-level care was considered or occurred (HIGH). Anticipated Discharge - Date - tbd 01/07+ - Location - home - Pending the following - ICD assessment, addiction recs, wean o2 Total time spent (which include face to face and non face to face encounters) in minutes: 51 Extended Emergency Contact Information Primary Emergency Contact: Olga Gibbons Mobile Relation: Significant Other Preferred language: Turkmen Secondary Emergency Contact: Maria L Novoa Mobile Relation: Mother Preferred language: Turkmen Luan Wilson MD Division of Hospitalist Medicine Inpatient Medical Services/[facility] [place] [1] [2] chlorhexidine, , Topical, Daily enoxaparin, 40 mg, SubCUTAneous, q24h folic acid, 1 mg, Oral, Daily Lidocaine, 1 patch, TransDERmal, Daily Lidocaine, 1 patch, TransDERmal, Daily pantoprazole, 40 mg, Oral, Nightly Or pantoprazole (ProtoNix) 40 mg in sodium chloride (PF) 0.9 % 10 mL injection, 40 mg, IntraVENous, Nightly QUEtiapine, 100 mg, Oral, Nightly QUEtiapine, 50 mg, Oral, q AM sodium chloride 0.9%, 5-40 mL, IntraCATHeter, q8h thiamine, 100 mg, Oral, Daily Images from the original note were not included. OCCUPATIONAL THERAPY [facility] Initial Evaluation Name/MRN: Chelsea Cole ([id number]) Evaluation Date: 2025 Date of : 1990 Admission Date: 12/24/2024 4:30 PM Age: 35 y.o. Room[facility]: [facility] Discharge Recommendation: IP Rehab (May progress to home with acute therapy) Assessment IMPRESSION: Pt presented after being found unresponsive- cardiac arrest. 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 Pt currently moving well but extremely limited by SOB and limited endurance. Unsafe to return at this time, OT recommending IPR- may progress to home with acute therapy. Admitting Diagnosis: cardiac arrest Performance Deficits /Impairments: Decreased Endurance Prognosis: Good Decision Making: Low Complexity Subjective Pt supine in bed, pleasant and agreeable to OT eval. SO present and it is pt birthday. Pain: Yost-Rodriguez Pain Ratin = Hurts little more Pain Location: soreness in low back Past Medical History: Medical History[1] Past Surgical History: Surgical History[2] Admission Diagnosis: Patient Active Problem List Diagnosis Date Noted Cardiac arrest (HCC) 12/24/2024 Medical Precautions: No active isolations Proper PPE donned/doffed in accordance with facility standards. Fall Risk: Hassan Fall Risk Score: 35 (Medium Risk) Precautions/Restrictions: Lines/Drains/Airways: O2 Family/Caregiver Present: significant other Overall Cognitive Status: WNL Overall Orientation Status: Oriented x4 Social/Functional History Patient admitted from home. 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 Unable to ambulate to bathroom d/t fatigue and low endurance. Device(s) used: None AM-PAC AM-PAC Inpatient Daily Activity Raw Score: 22 ADL Inpatient CMS G-Code Modifier: CJ Plan Pt would benefit from skilled acute OT services to address Endurance Training. Frequency: 4x/week for 4 weeks Barriers: Decreased endurance Safety/Education Safety Safety Devices in place: All fall risk precautions in place, call light within reach, and left in bed Restraints: No Education Education Given To: patient Education Provided: OT Role, Plan of Care, and Discharge Recommendations Education Method: Verbal Barriers to Learning: Education Outcome: Goals Patient Stated Goal: rehab to get stronger and better endurance Encounter Problems Encounter Problems (Active) Balance Patient will maintain static standing balance for 3 minutes with independence in order to demonstrate decreased risk of falling. Start: 01/06/25 Expected End: 02/03/25 Dressings Lower Extremities Patient will dress lower body independently Start: 01/06/25 Expected End: 02/03/25 Mobility Patient will demonstrate functional ambulation independently Start: 01/06/25 Expected End: 02/03/25 Toileting Patient will complete toileting tasks at standard toilet with independence. Start: 01/06/25 Expected End: 02/03/25 Transfers Patient will complete functional transfer with no assistive device with independence in order to prepare for ambulation. Start: 01/06/25 Expected End: 02/03/25 Patient will perform bed mobility with independence in order to improve independence and prepare for out of bed mobility. Start: 01/06/25 Expected End: 02/03/25 Therapy Time Individual Co-Treatment Co-Evaluation Time In 0826 Time Out 0835 Minutes 9 Arabella Elkins OT Patient's Occupational Therapy Plan of Care supervision is transferred to a [facility] Therapy Services Occupational Therapist. Goals and/or treatment plan was established in collaboration with patient/family/other representatives. [1] No past medical history on file. [2] No past surgical history on file. [facility] [place] [facility] Cardiology /Electrophysiology Progress Note HPI / Interval History: Patient underwent coronary CTA and cardiac MRI today. Cornary CTA showed a right middle lobe PE and LLL cavitary lesion. MRI did not have any signs of scarring or fibrosis, but showed decreased RV function. Seen at bedside this afternoon. Spoke with patient regarding findings and with these, it is unlikely that he had a VF arrest to initiate his prolonged course. Telemetry has showing sinus rhythm without ventricular ectopy. Assessment/Plan 1. Cardiac Arrest: Although the circumstances around the event are unclear, it is most likely that his event was initially a PEA arrest related to aspiration/hypoxia from vomiting and intoxication. It is also possible that he may have had a pulmonary embolus to initiate the event based on the chest CT results from today (though the PE could have developed while in the hospital) I do not believe he needs a secondary prevention ICD, as his arrest was likely bradycardic rather than related to ventricular fibrillation. He has no risk factors for that and no family history, and his LV is normal by MRI. 2. Pulmonary embolus: Management per primary team and pulmonary. He will need oral anticoagulation for 3 to 6 months at least 3. Left lower lobe cavitary lesion: This may be an abscess related to his aspiration. Management per primary team and pulmonary. We will sign off. Please call with further questions Medications: Scheduled Meds[1] Infusion Medications: Continuous Meds[2] Physical Examination: Vitals: 01/05/25 2247 01/06/25 0309 01/06/25 0405 01/06/25 0740 BP: 118/83 109/75 120/78 BP Location: Right arm Right arm Right arm Patient Position: Lying Lying Lying Pulse: 80 87 84 Resp: 18 20 18 Temp: 36.4 C (97.5 F) 36.8 C (98.3 F) 36.6 C (97.8 F) TempSrc: Temporal Temporal Temporal SpO2: 96% 93% 94% Weight: 138 lb 6.4 oz (62.8 kg) Height: Intake/Output Summary (Last 24 hours) at 2025 0835 Last data filed at 2025 0421 Gross per 24 hour Intake 1080 ml Output 0 ml Net 1080 ml Patient Vitals for the past 168 hrs: Weight Weight Method 01/06/25 0405 138 lb 6.4 oz (62.8 kg) Standing scale 01/05/25 0459 134 lb 12.8 oz (61.1 kg) Standing scale 01/04/25 0539 158 lb 15.2 oz (72.1 kg) -- 01/03/25 0500 158 lb 11.7 oz (72 kg) Bed scale 12/31/24 0500 172 lb 13.5 oz (78.4 kg) Bed scale Physical Exam Constitutional: NAD Psychiatric: Alert. Medical insight intact Neck: No JVD Respiratory: Lungs are clear Heart: regular ; Nl S1 and S2, no murmur, norub, gallop Abdomen: NABS; soft, non-tender, non-distended Extremities: no LE edema Skin: Warm to touch and well perfused Laboratory Tests: TROPONIN I, CONVENTIONAL SENSITIVITY CK Date Value Ref Range Status 12/31/2024 835 (H) 30 - 185 U/L Final 12/28/2024 4,747 (H) 30 - 185 U/L Final 12/27/2024 5,171 (H) 30 - 185 U/L Final 12/26/2024 7,535 (H) 30 - 185 U/L Final 12/26/2024 9,201 (H) 30 - 185 U/L Final TROPONIN I, HIGH SENSITIVITY Troponin HS Serial Baseline Date Value Ref Range Status 12/24/2024 1,053 (HH) <=35 ng/L Final Comment: In individuals presenting with symptoms > 2h, a baseline troponin <= 5 ng/L suggests acute cardiac injury is unlikely and further serial testing is generally not indicated. 2h Troponin HS (Serial 2nd Troponin) Date Value Ref Range Status 12/24/2024 1,633 (HH) <=35 ng/L Final Comment: Rising or falling troponin delta greater than 15 ng/L as compared to baseline value is significant for acute cardiac injury. Recent Labs 01/05/25 1251 01/06/25 0753 NA 143 139 K 3.2* 4.2 CL 110* 111* CO2 22 20* BUN 22* 19 CREATININE 0.94 0.85 Recent Labs 01/05/25 1251 01/06/25 0753 WBC 10.5 10.2 HGB 12.9* 11.3* HCT 38.7* 33.4* MCV 88.2 87.4 PLT 487* 439 Lab Results Component Value Date TSH 1.89 12/24/2024 EF BP Date Value Ref Range Status 12/28/2024 67 55 - 100 % Final 12/24/24 TRANSTHORACIC ECHOCARDIOGRAM (TTE) LIMITED (CONTRAST/BUBBLE/3D PRN) 12/28/2024 3:08 PM (Final) Interpretation Summary Left Ventricle: Left ventricle size is normal. Normal wall thickness. Normal left ventricular systolic function. EF by 2D Simpsons Biplane is 67%. Global longitudinal strain is normal with a value of -19.2%. Normal wall motion. Diastolic function not assessed. Right Ventricle: Right ventricle size is normal. Normal systolic function. Signed by: Willy Mtz MD on 12/28/2024 3:08 PM Cardiac Tests: ECG: sinus bradycardia Tracing reviewed. Telemetry findings reviewed: n/a EF BP Date Value Ref Range Status 12/28/2024 67 55 - 100 % Final Fritz Fiore MD Date Of Service 2025 I, Rani Allan MD, saw and evaluated the patient. I personally obtained the pérez and critical portions of the history and physical exam. I reviewed the chart, the fellow's documentation, and discussed the patient with the fellow. I agree with the fellow's medical decision making and have edited the note to reflect my clinical findings and my assessment and plan. Rani Allan MD No edited on 01/08 for DOS 2025 [1] chlorhexidine, , Topical, Daily enoxaparin, 40 mg, SubCUTAneous, q24h folic acid, 1 mg, Oral, Daily Lidocaine, 1 patch, TransDERmal, Daily Lidocaine, 1 patch, TransDERmal, Daily pantoprazole, 40 mg, Oral, Nightly Or pantoprazole (ProtoNix) 40 mg in sodium chloride (PF) 0.9 % 10 mL injection, 40 mg, IntraVENous, Nightly QUEtiapine, 100 mg, Oral, Nightly QUEtiapine, 50 mg, Oral, q AM sodium chloride 0.9%, 5-40 mL, IntraCATHeter, q8h thiamine, 100 mg, Oral, Daily [2] Hospitalist Progress Note - [facility] [employer] ([facility] [place]) 01/05/2025 10:43 AM [id number]: Please page me for patient care issues. [phone]: Please page [facility] Hospitalist - [facility] [place] [facility] for any issues. Subjective and Objective: Admit Date: 12/24/2024 PCP: Breanna Roman No chief complaint on file. Hospital course: ICU course per note 01/04: "34 yo M presented as tx from [place] in vfib cardiac arrest. Received 12 minutes of CPR and intubated prior to tx. Initially admitted under CCU and tx to MICU as patient also with severe PNA, ARDS. Proned 12/25-12/27, stabilized, and extubated 12/28. Unfortunately re-intubated same day d/t severe delirium (though neurologically intact.. following all commands, verbal, etc) and worsened noncardiogenic edema from ARDS. Extubated to [facility]." Pt transferred to [facility] 01/05. Interval Updates: 01/05/25 (addendum) -No labs discussed with pt and nursing, pt refused again - will obtain, follow up later today ->K+ 3.2, repleted 80meq PO. Transaminitis without obstructive pattern, trend for now. Metop ordered for planned CTA and MRI tomorrow. -Pt reports still with some SOB, educated on IS use. Wean O2 as tolerated. No new sx including chest pain, palpitations, cough, syncope/presyncope. -Appreciated cards recs: cardiac MRI to assess for ICD need, tele ordered Adult diet Regular Dietary Orders (From admission, onward) Start Ordered 01/03/25 1013 Adult diet Regular Diet effective now Question: Diet type Answer: Regular 01/03/25 1013 I/O last 3 completed shifts: In: 450 (7.4 mL/kg) [P.O.:450] Out: 301 (4.9 mL/kg) [Urine:300 (0.1 mL/kg/hr); Stool:1] Weight: 61.1 kg @IODETAILS@ @[id number]@ Medications: Continuous Meds[1] Scheduled Meds[2] Recent Labs 01/03/25 0331 WBC 18.5* HGB 11.4* PLT 304 Recent Labs 01/03/25 0331 NA 147* K 3.4* CL 116* CO2 19* BUN 34* CREATININE 1.14 GLUCOSE 104* Recent Labs 01/03/25 0331 AST 65* ALT 116* BILITOT 0.8 ALKPHOS 98 No results found for: "TRIG", "HDL", "LDLCALC", "CHOL" No results found for: "PHART", "PO2ART", "[id number]" No results for input(s): "INR" in the last 72 hours. No results for input(s): "CKTOTAL", "CKMB", "TROPONINI" in the last 72 hours. No results for input(s): "DDIMER" in the last 72 hours. No results found for: "HGBA1C" No results found for: "TSH" Urine Culture: Results for orders placed or performed during the hospital encounter of 12/24/24 Urine culture Collection Time: 12/25/24 1:18 AM Specimen: Urine, Clean Catch Result Value Ref Range Urine Culture No growth (<1,000 CFU/mL) Objective: Vitals: BP 128/88 (BP Location: Left arm, Patient Position: Lying) Pulse 99 Temp 36.8 C (98.3 F) (Temporal) Resp 18 Ht 5' 6" (1.676 m) Wt 134 lb 12.8 oz (61.1 kg) SpO2 93% BMI 21.76 kg/m Pulse Ox: SpO2 Av.8 % Min: 72 % Max: 99 % Physical Exam Vitals reviewed. HENT: Mouth/Throat: Mouth: Mucous membranes are moist. Eyes: Extraocular Movements: Extraocular movements intact. Cardiovascular: Rate and Rhythm: Normal rate. Pulses: Normal pulses. Pulmonary: Effort: No respiratory distress. Breath sounds: No stridor. Rales present. No wheezing or rhonchi. Abdominal: General: There is no distension. Palpations: Abdomen is soft. Musculoskeletal: Right lower leg: No edema. Left lower leg: No edema. Skin: General: Skin is warm and dry. Neurological: Mental Status: He is alert. Psychiatric: Mood and Affect: Affect is flat. ANATOMY/TUBES/LINES: N/A Running Summary, Assessment, and Plan Acute, acute on chronic, unstable/uncontrolled chronic problems/diagnoses: Acute hypoxic respiratory failure requiring intubation 2/2 ARDS, Bilateral strep pneumo, H. Flu CAP, pulmonary edema, improved Septic shock, resolved V fib arrest Potential methadone and alcohol withdrawal Tobacco abuse Delirium Hypernatremia - resolved ABRIL Rhabdomyolysis, resolved Transaminitis Abd US 12/25: 1. Gallbladder wall thickening. No cholelithiasis. Correlate clinically. 2. Coarsened appearance the liver, which may suggest cirrhosis. Correlate clinically. 3. Decreased flow within the splenic vein on color Doppler evaluation, which may be technical. There is flow noted on spectral Doppler evaluation. Dedicated duplex ultrasound of the liver could be performed for further evaluation. 4. Heterogeneous appearance of the pancreas, which is nonspecific. Hyperglycemia Hypokalemia Stable chronic problems affecting care, new non-acute diagnoses: N/a As a result of the above findings & factors, the following mgmt was pursued: - Wean oxygen as tolerated. Educated on IS. Home O2 eval prior to discharge. -Pending CMR for ICD need -> metop tonight for imaging tomorrow -Aggressive pulmonary hygiene -Diuresis discontinued, monitor volume status -Continue seroquel 50 mg qAM, 100 mg at bedtime. Haldol PRN -Glucose stable, stopped monitoring -Folate and thiamine supplementation - am labs, replace lytes prn - PT/OT/CM/SW as appropriate - delirium precautions: limit night-time awakening - DVT prophylaxis: lovenox Complexity: Acute illness or injury posing a threat to life or body function (HIGH). Risk: Admission to hospital-level care was considered or occurred (HIGH). Anticipated Discharge - Date - tbd, possibly 01/06 - Location - home - Pending the following - ICD assessment, labs Total time spent (which include face to face and non face to face encounters) in minutes: 51 Extended Emergency Contact Information Primary Emergency Contact: Olga Gibbons Mobile Relation: Significant Other Preferred language: Turkmen Secondary Emergency Contact: Maria L Novoa Mobile Relation: Mother Preferred language: Turkmen Luan Wilson MD Division of Hospitalist Medicine Inpatient Medical Services/[facility] [place] [1] [2] chlorhexidine, , Topical, Daily enoxaparin, 40 mg, SubCUTAneous, q24h folic acid, 1 mg, Oral, Daily Lidocaine, 1 patch, TransDERmal, Daily Lidocaine, 1 patch, TransDERmal, Daily pantoprazole, 40 mg, Oral, Nightly Or pantoprazole (ProtoNix) 40 mg in sodium chloride (PF) 0.9 % 10 mL injection, 40 mg, IntraVENous, Nightly QUEtiapine, 100 mg, Oral, Nightly QUEtiapine, 50 mg, Oral, q AM sodium chloride 0.9%, 5-40 mL, IntraCATHeter, q8h thiamine, 100 mg, Oral, Daily [facility] and [facility] Cardiology /Electrophysiology Progress Note HPI / Interval History: Patient initially presented for out of hospital arrest on 12/24 at OSH transfer. Unclear exactly what transpired but was found with vomit on his chest and pulseless. EMS was called and had both PEA and VT per chart (no records available for viewing). He has had a prolonged course while here including ARDS and altered mental status. He was transferred from the ICU yesterday. Patient reports that the last thing he remembers was the day around noon before his arrest. He was battling a "double PNA". He now feels significantly better, but still very weak. He denies chest pain, shortness of breath, palpitation, dizziness, or syncope prior to the event. He is fairly active. 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 His mother was at bedside and reports no sudden cardiac at young ages. His maternal grandfather passed aware suddenly from a large AL. His ECHO on 12/28 shows normal ejection fraction and no significant abnormalities. It was mildly reduced upon admission, likely in the setting of his recent arrest. His tele over the past two weeks has been unremarkable, although he is currently not on telemetry. EKG since arrival have shown sinus bradycardia with rates in the 50s. Assessment/Plan Cardiac Arrest Unclear if patient was intially PEA or VF Plan: -a cardiac MRI would help delineate any late gadolinium enhancement and scar. If there is no uptake his arrest was more likely a PEA arrest in the setting of acute hypoxic respiratory failure from vomiting. If positive would recommend a subcutaneous device given his age. -coronary CTA for coronary assessment -would recommend telemetry monitoring while in the hospital Medications: Scheduled Meds[1] Infusion Medications: Continuous Meds[2] Physical Examination: Vitals: 01/04/25 1714 01/05/25 0229 01/05/25 0459 01/05/25 0739 BP: 127/75 127/87 128/88 BP Location: Left arm Patient Position: Lying Pulse: 102 107 99 Resp: 17 18 Temp: 37.2 C (98.9 F) 37.3 C (99.1 F) 36.8 C (98.3 F) TempSrc: Temporal Temporal SpO2: 96% 92% 93% Weight: 134 lb 12.8 oz (61.1 kg) Height: Intake/Output Summary (Last 24 hours) at 01/05/2025 1102 Last data filed at 01/05/2025 0624 Gross per 24 hour Intake 450 ml Output -- Net 450 ml Patient Vitals for the past 168 hrs: Weight Weight Method 01/05/25 0459 134 lb 12.8 oz (61.1 kg) Standing scale 01/04/25 0539 158 lb 15.2 oz (72.1 kg) -- 01/03/25 0500 158 lb 11.7 oz (72 kg) Bed scale 12/31/24 0500 172 lb 13.5 oz (78.4 kg) Bed scale 12/30/24 0615 177 lb 14.6 oz (80.7 kg) Bed scale Physical Exam Constitutional: NAD Psychiatric: Alert. Medical insight intact Neck: No JVD Respiratory: Lungs are clear Heart: regular ; Nl S1 and S2, no murmur, norub, gallop Abdomen: NABS; soft, non-tender, non-distended Extremities: no LE edema Skin: Warm to touch and well perfused Laboratory Tests: TROPONIN I, CONVENTIONAL SENSITIVITY CK Date Value Ref Range Status 12/31/2024 835 (H) 30 - 185 U/L Final 12/28/2024 4,747 (H) 30 - 185 U/L Final 12/27/2024 5,171 (H) 30 - 185 U/L Final 12/26/2024 7,535 (H) 30 - 185 U/L Final 12/26/2024 9,201 (H) 30 - 185 U/L Final TROPONIN I, HIGH SENSITIVITY Troponin HS Serial Baseline Date Value Ref Range Status 12/24/2024 1,053 (HH) <=35 ng/L Final Comment: In individuals presenting with symptoms > 2h, a baseline troponin <= 5 ng/L suggests acute cardiac injury is unlikely and further serial testing is generally not indicated. 2h Troponin HS (Serial 2nd Troponin) Date Value Ref Range Status 12/24/2024 1,633 (HH) <=35 ng/L Final Comment: Rising or falling troponin delta greater than 15 ng/L as compared to baseline value is significant for acute cardiac injury. Recent Labs 01/03/25 0331 NA 147* K 3.4* CL 116* CO2 19* BUN 34* CREATININE 1.14 Recent Labs 01/03/25 0331 WBC 18.5* HGB 11.4* HCT 34.6* MCV 88.5 PLT 304 Lab Results Component Value Date TSH 1.89 12/24/2024 EF BP Date Value Ref Range Status 12/28/2024 67 55 - 100 % Final 12/24/24 TRANSTHORACIC ECHOCARDIOGRAM (TTE) LIMITED (CONTRAST/BUBBLE/3D PRN) 12/28/2024 3:08 PM (Final) Interpretation Summary Left Ventricle: Left ventricle size is normal. Normal wall thickness. Normal left ventricular systolic function. EF by 2D [employer]ons Biplane is 67%. Global longitudinal strain is normal with a value of -19.2%. Normal wall motion. Diastolic function not assessed. Right Ventricle: Right ventricle size is normal. Normal systolic function. Signed by: Willy Mtz MD on 12/28/2024 3:08 PM Cardiac Tests: ECG: sinus bradycardia Tracing reviewed. Telemetry findings reviewed: n/a EF BP Date Value Ref Range Status 12/28/2024 67 55 - 100 % Final Fritz Fiore MD Date Of Service 01/05/2025 I, Rani Allan MD, saw and evaluated the patient. I personally obtained the pérez and critical portions of the history and physical exam. I reviewed the chart, the fellow's documentation, and discussed the patient with the fellow. I agree with the fellow's medical decision making and have edited the note to reflect my clinical findings and my assessment and plan. Rani Allan MD [1] chlorhexidine, , Topical, Daily enoxaparin, 40 mg, SubCUTAneous, q24h folic acid, 1 mg, Oral, Daily Lidocaine, 1 patch, TransDERmal, Daily Lidocaine, 1 patch, TransDERmal, Daily pantoprazole, 40 mg, Oral, Nightly Or pantoprazole (ProtoNix) 40 mg in sodium chloride (PF) 0.9 % 10 mL injection, 40 mg, IntraVENous, Nightly QUEtiapine, 100 mg, Oral, Nightly QUEtiapine, 50 mg, Oral, q AM sodium chloride 0.9%, 5-40 mL, IntraCATHeter, q8h thiamine, 100 mg, Oral, Daily [2] Nutrition Assessment Type and Reason for Visit: Reassess Nutrition Recommendations/Plan: Pt is currently ordered a Regular Diet which is appropriate. Will continue to monitor PO intake for adequacy as better established, pt with complaints of ongoing poor appetite, refused lunch/dinner yesterday and reluctantly accepting of cheerios with milk with OIL WELL LOGGER this AM for assessment. Pt declined ONS offer before RD could even finish explaining options. Will continue to monitor weight changes, labs and overall nutrition status Pt and multiple family members at bedside decline having questions/concerns for RD at this time. 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) Context: Acute Illness Findings of the 6 clinical characteristics of malnutrition: Energy Intake: Mild decrease in energy intake (Comment) (NPO 12/24, Vital 1.5 @ goal rate of 20mls/hr 12/26, changed to Vital HP @ 50mls/hr 12/27, NPO 12/28, 12/29 Vital HP @ 50mls/hr resumed which ran until 01/02 when pt was extubated, when intubated received propofol, Regular Diet 01/03- poor appetite/PO, refusing ONS) Weight Loss: No significant weight loss (CBW 158# no method on 01/04, was 153# bedscale on 12/24 presentation, there is no recent weights in chart to assess, pt subjectively declines weight changes PRECISION ASSEMBLER BENCH) Body Fat Loss: No significant body fat loss Muscle Mass Loss: No significant muscle mass loss Fluid Accumulation: No significant fluid accumulation (per flowsheets) (generalized, BLE and facial non-pitting, BUE mild) Procurement Clerk Strength: Not Performed Nutrition Assessment: pt with previously reviewed PMH who remains admitted to the ICU after he presented directly to [facility] on 12/24/24 from [facility] as an out of hospital arrest, pt was in VFib and defibrillated at 120 J into asystole, CPR x 12 minutes, 2 rounds or epinephrine with return of spontaneous circulation, pt was subsequently intubated, family members reported that pt was drinking alcohol and smoking marijuana the evening before, pt was noted to have vomit on his shirt and was not waking up so EMS was called, family also stated that he had complained of palpitations and chest pain the day prior, pt transferred to [facility] for further management, pt found to have bilateral pneumonia, strep pneumonia & haemophilus, due to ARDS pt was paralyzed/proned 12/25-12/27, NCC was following however MRI brain was cancelled as deemed not needed due to improvement in neurological exam and NCC signed off 12/28, Cardiology/EP following- noted 12/25 echo with EF 45% mild global hypokinesis, noted will likely need an ischemic eval once clinically improved, EP also consulted to determine need for ICD- plans to reach out to EP today for ischemic eval and/or ICD eval, pt was successfully extubated morning of 12/28 however re-intubated in the evening for airway protection and respiratory failure and severe delirium, bronch completed following re-intubation which showed diffiusely irritated airways with CHARMAINE significantly worse that right side, pink, thin frotty secretions diffusely, pt was then successfully extubated to [facility] on 01/02, OIL WELL LOGGER worked with pt yesterday with regular/thin liquids recs and worked with pt again this AM- pt stated that he is not hungry- did not eat dinner yesterday and did not order breakfast this AM, pt was willing to eat Cheerios in milk for OIL WELL LOGGER evaluation this AM, RN offered ONS and pt declined, OIL WELL LOGGER signed off with recs for continuation of regular diet/thin liquids. At time of RD presentation to room pt is resting in bed, family members at bedside, pt minimally conversant, in terms of nutrition throughout admit NPO /, Vital 1.5 @ goal rate of 20mls/hr 12/26, changed to Vital HP @ 50mls/hr 12/27, NPO 12/28, 12/29 Vital HP @ 50mls/hr resumed which ran until 01/02 when pt was extubated, Regular Diet initiated 01/03 and remains ordered, pt states that his appetite is poor, pt states that he didnt eat yesterday, RD began to state 'would you like me to send...' and before RD could finish statement pt states 'no', RD clarified that pt was stating he did not want to receive ONS and pt confirms he does not wish to receive, pt CBW 158# no method on 01/04, was 153# bedscale on 12/24 presentation, there is no recently documented weights per chart review- pt declines weight changes PRECISION ASSEMBLER BENCH, denies having questions/concerns for RD at this time, will continue to monitor clinical course. Nutrition Related Findings: Pt is from home with family PRECISION ASSEMBLER BENCH Orientation Level: Oriented to place, Oriented to time, Oriented to situation, Disoriented to person, Cognition: Appropriate judgement, Follows commands, Best Verbal Response: Confused, Patient Behaviors/Mood: Anxious, Cooperative Teeth: Intact Swallow: Able to swallow solids and liquids without difficulty Steve Scale Score: 16. Wound Type: None Net IO Since Admission: 7,446.91 mL [01/04/25 1201] Gastrointestinal (WDL): Exceptions to WDL Bowel Sounds (All Quadrants): Active Abdomen Inspection: Soft, Nondistended Last BM Date: 01/03/25, Stool Appearance: Watery, Loose, Stool Color: Brown, Yellow Edema: Generalized Edema: Non-pitting, RUE Edema: None, LUE Edema: None, RLE Edema: None, LLE Edema: None Oxygen Therapy: Supplemental oxygen, O2 Delivery Method: Nasal cannula, O2 Flow Rate (L/min): 3 L/min Labs and meds reviewed: Scheduled: Scheduled Meds[1] Continuous: Continuous Meds[2] Current Nutrition Therapies: Adult diet Regular Current Oral Intake Average Meal Intake: 0%, Refusing to eat Average Supplements Intake: None Ordered, Refusing to take Additional Calorie Sources Additional Calorie Sources: Propofol at 20.9 ml/hr = 552 kcal/day Anthropometric Measures: Height: 167.6 cm (5' 6") Current Body Weight: 71.7 kg (158 lb) (no method 01/04) Weight Source: Not Specified Admission Body Weight: 69.4 kg (153 lb) ([facility] Usual Body Weight: (no recent docuemnted weights) [place] Body Weight (lbs) (Calculated): 142 lbs [place] Body Weight (Kg) (Calculated): 65 kg % [place] Body Weight (Calculated): 111.3 % BMI (kg/m2) (Calculated): 25.5 Weight Adjustment For: No Adjustment BMI Categories: Overweight (BMI 25.0-29.9) Nutrition Interventions: Nutrition Education/Counseling: No recommendation at this time Coordination of Nutrition Care: Continue to monitor while inpatient Plan of Care discussed with: pt and multiple family members at bedside Goals: Previous Goal Met: No Progress toward Goal(s) Goals: PO intake 75% or greater, by next RD assessment Nutrition Monitoring and Evaluation: Behavioral-Environmental Outcomes: None Identified Food/Nutrient Intake Outcomes: Food and Nutrient Intake Physical Signs/Symptoms Outcomes: Biochemical Data, GI Status, Fluid Status or Edema, Hemodynamic Status, Meal Time Behavior, Weight, Nutrition Focused Physical Findings, Skin Discharge Planning: Too soon to determine Sherie Marte RD Contact: available via [employer] or *[phone] [1] chlorhexidine, , Topical, Daily enoxaparin, 40 mg, SubCUTAneous, q24h folic acid, 1 mg, Oral, Daily Lidocaine, 1 patch, TransDERmal, Daily pantoprazole, 40 mg, Oral, Nightly Or pantoprazole (ProtoNix) 40 mg in sodium chloride (PF) 0.9 % 10 mL injection, 40 mg, IntraVENous, Nightly QUEtiapine, 100 mg, Oral, Nightly QUEtiapine, 50 mg, Oral, q AM sodium chloride 0.9%, 5-40 mL, IntraCATHeter, q8h thiamine, 100 mg, Oral, Daily [2] [facility] Respiratory Care Department Progress Note As part of the Respiratory Assessment Program (RAP), the following Respiratory Therapist evaluation has been completed, including a chart review and clinical/physical assessment. Respiratory Therapist RAP Evaluation Guideline Points 0 1 2 3 4 Points Strongly Consider History Factor No Pulmonary conditions Stable Pulmonary condition(s) Surgery or Intervention that may impact Pulmonary system (at risk) Surgery or Intervention that is impacting Pulmonary system Active Exacerbation of Pulmonary Condition 0 Respiratory Pattern Regular, RR= 12-18 CHASE or Increased RR= 19-24 Irregular, or RR= 25-30 SOB, talk in short sentences, or RR= 31-35 Severe SOB, accessory muscle use, one word answers, or RR>35 0 Aerosol Med(s), High Flow O2 Breath Sounds Clear Diminished in 1 lobe Diminished in <= 2 lobes Adventitious breath sounds Coarse crackles, Wheezes, or Diminished in >2 lobes 0 Aerosol Med(s), Bronchial Hygiene, Hyperinflation Cough & Sputum Strong cough, no secretion retention or production Weak cough, no secretion retention or production Weak cough, w/ production (less often than Q2hr), or secretion retention No cough, w/ secretion retention or production (less often than Q2hr) Significant secretion production (more often than Q2hr) or mucus plug 0 Aerosol Med(s), Bronchial Hygiene, Hyperinflation Level of Activity Ambulatory Ambulatory with Assist Up in chair or edge of bed (dangle) Non-ambulatory, bedridden with active ROM Completely paralyzed or without active ROM 0 Triage 5 0-2 Triage 4 3-5 Triage 3 6-10 Triage 2 11-14 Triage 1 >=15 Total 0 Triage Score = 5 TRIAGE SCORING - SUGGESTED FREQUENCIES Aerosol Therapy Bronchial Hygiene Hyperinflation Triage Score Q4h & PRN 1 Q4hWA (QID) & PRN 2 TID & PRN 3 BID & PRN 4 PRN 5 Therapy(s) Indicated Yes/No Aerosol Medication no Hyperinflation no Bronchial Hygiene no High Flow Oxygen no Based on this RAP evaluation the following therapy is being initiated: Hts At the following frequency: prn Comments: Thank you for involving Respiratory in the care of this patient, Images from the original note were not included. Speech-Language Pathology SPEECH LANGUAGE PATHOLOGY [facility] Dysphagia Treatment Note Patient Name: Chelsea Cole Evaluation Date: 01/04/2025 Date of : 1990 Admission Date: 12/24/2024 4:30 PM Age: 34 y.o. Room/Bed: T3319/[facility] A Subjective Patient alert and cooperative. Seen upright in bedside chair. Answers all basic questions with clear vocal quality. Follows most basic commands. No visitors at bedside. Spoke with RN who cleared pt for treatment and is present. Current Diet: Dietary Orders (From admission, onward) Start Ordered 01/03/25 1013 Adult diet Regular Diet effective now Question: Diet type Answer: Regular 01/03/25 1013 Aspiration Precautions: - Upright positioning for all PO intake - Slow rate of intake Oxygen: now on 7 liters Oxygen Therapy: Supplemental oxygen O2 Delivery Method: High flow nasal cannula O2 Flow Rate (L/min): 11 L/min Pain: Pt denies any current pain. PPE Worn: gloves Objective & Assessment Dysphagia Treatment # of Activities: 1 Dysphagia Activity 1: Assess tolerance of current diet Patient states that he is not hungry - did not eat supper and did not order breakfast this AM. Patient is willing to eat Cheerios in milk. Patient requires assistance with feeding. Mastication, bolus formation and AP transit are prompt and complete. There is no oral residue. Hyolaryngeal excursion remains intact. Patient able to drink water via large bore straw. There is no audible quality to the swallow. There is no wet vocal quality or cough. SpO2 remains at 94% throughout. Encouraged more PO intake. RN offered nutritional supplements - patient declined. Plan & Recommendations Plan: Recommend Regular solids and Thin liquids and meds as tolerated and the following precautions: - Upright positioning for all PO intake - Assist with feeding Patient has achieved all acute care OIL WELL LOGGER goals. Speech therapy to sign off at this time. D/C Recommendations: No follow up therapy recommended post discharge Education Education Given: role of therapy, swallowing strategies Given To: patient and RN Response: verbalizes understanding Goals Patient Stated Goal: "I'm just waiting on my girl to arrive." Encounter Problems Encounter Problems (Resolved) Swallowing Patient will tolerate the least restrictive diet consistency to allow for safe consumption of daily meals (Completed) Start: 01/03/25 Expected End: 01/10/25 Resolved: 01/04/25 Therapy Time OIL WELL LOGGER Individual Minutes Time In: 914 Time Out: 924 Minutes: 10 MONICA Varela Images from the original note were not included. PHYSICAL THERAPY [facility] Initial Evaluation Name/MRN: Chelsea Cole ([id number]) Evaluation Date: 01/04/2025 Date of : 1990 Admission Date: 12/24/2024 4:30 PM Age: 34 y.o. Room/Bed: T3-319/T3-319 A Discharge Recommendation: Home with assist PRN, Continue to assess pending progress Other: tbd Assessment IMPRESSION: Pt presents with impaired mobility. Noted generalized weakness and decreased activity tolerance. Impaired balance during standing and gait. Ambulated short distance with mod assist. SpO2 <88%, recovers after 2-3 minute rest on 7 L/min HFNC. Pt currently requires assist with all functional mobility. Anticipate pt will continue to progress as pt progresses medically. Encourage pt to increase out of bed activity. Anticipate discharge to home with assist as needed. Admitting Diagnosis: Cardiac Arrest Prognosis: fair Performance Deficits /Impairments: Decreased Functional Mobility, Decreased ADL status, Decreased Strength, Decreased Safety Awareness, Decreased Endurance, and Decreased Balance Decision Making: Medium Complexity Subjective Pt in bed. Agree with PT treatment. RN cleared for PT. Pain: Yost-Rodriguez Pain Ratin = Hurts little more Pain Location: right post rib cage Past Medical History: Medical History[1] Past Surgical History: Surgical History[2] Admission Diagnosis: Patient Active Problem List Diagnosis Date Noted Cardiac arrest (HCC) 12/24/2024 Medical Precautions: No active isolations Proper PPE donned/doffed in accordance with facility standards. Fall Risk: Hassan Fall Risk Score: 30 (Medium Risk) Precautions/Restrictions: Lines/Drains/Airways: tele, 7 L/min HFNC Fall Precautions Family/Caregiver Present: none Overall Cognitive Status: Exceptions - Initiation: requires cues for some - Sequencing: requires cues for some Overall Orientation Status: Oriented to Place and Oriented to Person Vision: Not Assessed Hearing: normal Social/Functional History Patient admitted from home. 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: N/A Prior Level of Function Prior Level of ADL Function: Independent Prior Level of Mobility: Independent; Device: None Prior Level of Transfers: Independent Objective Lower Extremity Assessment AROM: WFL PROM: WFL Strength: Lower Extremity Strength Right Left Hip Flexion 4- 4- Hip Abduction Hip Extension Hip External Rotation (ER) Hip Internal Rotation (IR) Knee Extension 4 4 Knee Flexion Ankle Dorsiflexion (DF) Ankle Plantarflexion (PF) 3+ 3+ Inversion Eversion Sensation: WFL Balance: Balance During Session: Posture: fair Sitting - Static: SBA Sitting - Dynamic: Contact Guard Standing - Static: Min Assist Standing - Dynamic: Min Assist Bed Mobility: Supine to sit: Min Assist Scooting: SBA Transfers Sit to stand: Min Assist Stand to sit: Min Assist Stand pivot: Min Assist Ambulation Ambulation 1 Assistive device(s) used: Used therapist for support Assist level: Min Assist Distance (ft): 3, 12 Quality of gait: step to pattern, uneven step length, wide KEVEN, slow rocio, postural sway, path deviations, instability through all phases, LOB-min assist to correct Ambulation 2 Assistive device(s) used: Front wheeled walker Assist level: Min Assist Distance (ft): 12 Quality of gait: uneven step length, wide KEVEN, slow rocio, postural sway, path deviations, instability through all phases, assist with managing fww Sitting at EOB x 5 minutes, close supervision for safety, reported minimal dizziness. Functional reaching. Standing with hand held assist, cues to improve posture. Weight shifting for pre-gait. Cues to to improve posture. Sit to stand from EOB, from chair 2x. IS x 5 < 500ml Outcome Measures AM-PAC How much HELP from another person do you currently need Turning from your back to your side while in a flat bed without using bedrails?: A Little Moving from lying on your back to sitting on the side of a flat bed without using bedrails?: A Little Standing up from a chair using your arms (wheelchair or bedside chair)?: A Little Walking in a hospital room?: A Lot Stair climbing assessed?: No JH-HLM JH-HLM Score: Walked 10 steps or more (i.e. walked to restroom) Plan Pt would benefit from skilled acute PT services to address Strengthening, Gait Training, Balance Training, Functional Mobility Training, Endurance Training, and Stair Training. Frequency: 3x/week for 4 weeks Barriers: Pain, Impaired balance, Lower extremity weakness, Upper extremity weakness, Decreased endurance, and Stairs at home Safety/Education Safety Safety Devices in place: call light within reach, left in chair, nurse notified, no alarms engaged upon entry, and HFNC Restraints: No Education Education Given To: patient Education Provided: PT Role, PT Goals, and Plan of Care Education Method: Verbal Barriers to Learning: Education Outcome: Verbalized Understanding and Continued Education Needed Goals Patient Stated Goal: To go home. Encounter Problems Encounter Problems (Active) Balance Patient will maintain dynamic standing balance for 3 minutes with modified independence in order to demonstrate decreased risk of falling. Start: 01/04/25 Expected End: 02/01/25 Mobility Patient will ambulate 250 feet with modified independence and no assistive device in order to improve safety and independence with mobility. Start: 01/04/25 Expected End: 02/01/25 Patient will ascend and descend 1 flight stairs with one railing and supervision in order to safely negotiate home. Start: 01/04/25 Expected End: 02/01/25 Transfers Patient will perform bed mobility with modified independence in order to improve independence and prepare for out of bed mobility. Start: 01/04/25 Expected End: 02/01/25 Patient will complete functional transfer with no assistive device with modified independence in order to prepare for ambulation. Start: 01/04/25 Expected End: 02/01/25 Therapy Time Individual Co-Treatment Co-Evaluation Time In 0825 Time Out 0848 Minutes 23 Timed Code Treatment Minutes: 8 Minutes (FA) Luis Geronimo PT Patient's Physical Therapy Plan of Care supervision is transferred to a [facility] Services Physical Therapist. Goals and/or treatment plan was established in collaboration with patient/family/other representatives. [1] No past medical history on file. [2] No past surgical history on file. ICU Progress Note Name: Chelsea Cole : 1990(34 y.o.) Date: 01/04/25 Team: MICU Attending: Irineo Subjective: Hospital Summary: 34 yo M presented as tx from [place] in vfib cardiac arrest. Received 12 minutes of CPR and intubated prior to tx. Initially admitted under CCU and tx to MICU as patient also with severe PNA, ARDS. Proned 12/25-12/27, stabilized, and extubated 12/28. Unfortunately re-intubated same day d/t severe delirium (though neurologically intact.. following all commands, verbal, etc) and worsened noncardiogenic edema from ARDS. Extubated to HFNC. Interval Events: Mentation improved yesterday afternoon. HHFNC weaned down to salter with flow 6 L this morning. Tolerating diet No concerns this morning Denies even knowing what methadone is and does not know how it got in his system Wants to leave to be home to take care of his kids. Refusing blood draw Scheduled Meds:Scheduled Meds[1] Continuous Infusions:Continuous Meds[2] Objective: Last Vitals: BP MAP 128/79 (01/03/252099) 93 (01/03/252099) Arterial BP MAP 127/115 (01/02/25799) 121 mmHg (01/02/25799) Temp 36.7 C (98.1 F) (01/03/252099) Pulse (!) 122 (01/04/25333) Resp 20 (01/04/25333) SpO2 96 % (01/04/25333) Weight 72.1 kg (158 lb 15.2 oz) (01/04/25538) BMI Body mass index is 25.66 kg/m . I/O: 01/03 07 - 01/04 659 In: - Out: 250 [Urine:250] Ventilator: Resp Rate (Set): 8 Vt (Set, mL): 360 mL IP Set (cm H2O): 12 cm H2O FiO2 (%): 50 % PEEP/CPAP (cm H2O): 8 cm H20 Inspiratory Time (sec): 0.9 sec Oxygen Delivery: O2 Flow Rate (L/min): 11 L/min Invasive Lines / Tubes / Drains: Peripheral IV 12/27/24 Anterior;Distal;Right;Upper Arm (Active) Number of days: 7 Central Line Indication: NA - patient does not have a central line Alfaro Indications: NA - patient does not have a Alfaro catheter Restraints: Restraints Non-Violent Or Non-Self Destructive December 28, 2024 5:35 Pm Edt NA - patient is not restrained. Wounds: Constitutional: General Appearance [x]WDWN []Obese []Cachectic []Thin []Ill Eyes: Inspection of Pupils/Irises Pupils round and react: [x]Yes []No Sclera: []Icteric [x]Non-Icteric Inspection of Conjunctiva/Lids Conjunctiva: []Injected [x]Non-Injected Lids: [x]Intact []Lesion Present ENT/Mouth: External Inspection of ears/nose [x] Normal [] Scar/Lesion/Mass Inspection of teeth/lips/gums Dentition: [x][place] Teeth []Dentures Lips/Gums: [x]Intact []Lesion Present Mucosa: [x][place] [x]Moist []Dry Neck: External Appearance Overall Appearance: [x]Normal []Lesion/Mass/Crepitus Present Trachea midline: [x]Yes []No Thyroid [x]Normal []Enlarged []Tender []Mass []Absent Respiratory: Respiratory effort []Labored [x]Non-Labored [] Mechanically-Ventilated Auscultation [x]Clear []Crackles []Wheezes []Rhonchi Cardiovascular: Auscultation Rate: [x]Regular []Irregular []Tachycardia []Bradycardia Rhythm: [x]Regular []Irregular Murmur: []Present [x]Absent Extremities Peripheral Edema: []Present [x]Absent Varicosities: []Present [x]Absent Gastrointestinal: Abdomen Palpation: [x]Soft []Firm []Tender [x]Non-Tender []Distended [x]Non-distended Mass: []Present [x]Absent Bowel Sounds: []Present []Absent Hernia: []Present [x]Absent Liver/Spleen: []Hepatosplenomegaly [x]Organomegaly Absent Musculoskeletal: Inspection of Digits and Nails Cyanosis: []Present [x]Absent Clubbing: []Present [x]Absent Ischemia: []Present [x]Absent Infection: []Present [x]Absent Extremities MILLS Equally: Except ([]RUE []RLE []LUE []LLE) Strength/Tone: Intact and Normal ([]RUE []RLE []LUE []LLE) Skin: Inspection [x]Normal []Rash []Lesion []Ulcer Palpation [x]Warm []Cool [x]Dry []Clammy []Nodules []Induration []Skin-tightening Cap-Refill: [] <3 sec [] >3 seconds (delayed) Neurologic: GCS EYE: 4 - Opens spontaneously GCS MOTOR: 6 - Obeys commands for movement GCS VERBAL: 5 - Oriented to person, place, time Total GCS: 15 [x] Sensation grossly intact Psych: Mental Status Alert: [x]Yes [] No Oriented: []x0 []X1 []X2 [x]x3 Mood/Affect [x]Normal []Flat []Agitated []Depressed []Anxious [x]Calm []Sedated [x]NAD Select Labs within last 24 hours- BMP: Recent Labs 01/02/25 00401/02/25 04001/02/25 0747 01/03/25 0331 NA 148* -- 145 147* K 3.5 -- 3.4* 3.4* CL 118* -- 119* 116* CO2 19* -- 18* 19* BUN 29* -- 32* 34* CREATININE 1.05 -- 0.84 1.14 CALCIUM 9.6 -- 9.2 9.9 MG -- 2.2 -- -- PHOS -- 3.5 -- -- LFTs: Recent Labs 01/01/25 0901/02/25 0409 01/03/25 0331 AST -- 75* 65* ALT -- 129* 116* PROT -- 7.0 7.5 ALBUMIN -- 2.6* 2.7* BILITOT -- 0.5 0.8 ALKPHOS -- 102 98 LIPASE 264* -- -- Glucose: Recent Labs 01/01/25 0905 01/01/25 1533 01/01/25 1704 01/02/25 0047 01/02/25 0404 01/02/25 0747 01/02/25 0753 01/02/25 1623 01/02/25 2037 01/03/25 0046 01/03/25 0325 01/03/25 0331 01/03/25 0808 01/03/25 1517 01/03/25205701/04/25 0412 GLUCOSE 134* -- 161* 127* -- 140* -- -- -- -- -- 104* -- -- -- -- POCGLU -- < > -- -- < > -- < > 115* 107* 100 99 -- 111* 103* 118* 143* < > = values in this interval not displayed. Procal: Recent Labs 01/02/25 040 PROCAL 0.60* CBC: Recent Labs 01/02/25 0409 01/02/25 0410 01/02/25 0747 01/03/25 0331 WBC 18.2* -- -- 18.5* HGB 9.9* 12.7 11.5 11.4* HCT 30.2* -- -- 34.6* PLT 227 -- -- 304 MCV 91.2 -- -- 88.5 RDW 14.7 -- -- 14.1 ABGs: Recent Labs 01/01/25 1536 01/02/250 01/02/25 0747 PHART 7.412 7.406 7.441 [id number] 30.0* 31.4* 29.4* PO2ART 222.8* 100.7* 74.3* [id number] 18.7* 19.3* 19.6* [id number] Ventilator Ventilator Ventilator Lactic Acid: No results for input(s): "LACTATE" in the last 72 hours. INR: No results for input(s): "INR" in the last 72 hours. Cardiac Injury Profile: No results for input(s): "CKTOTAL", "CKMB", "TROPONINI" in the last 72 hours. Labs in Last 3 months: Lab Results Component Value Date TSH 1.89 12/24/2024 INR 1.2 (H) 12/24/2024 Microbiology- Urine Cx: Lab Results Component Value Date URINECX No growth (<1,000 CFU/mL) 12/25/2024 Blood Cx: Lab Results Component Value Date BLOODCX No growth at 5 days 12/25/2024 BLOODCX No growth at 5 days 12/25/2024 Sputum Cx: Lab Results Component Value Date RESPCULT No growth of normal respiratory samuel. 12/28/2024 Gram Stain: Lab Results Component Value Date LABGRAM 12/28/2024 Many Polymorphonuclear leukocytes per low power field LABGRAM No epithelial cells seen 12/28/2024 LABGRAM No organisms seen 12/28/2024 PNA PCR: Lab Results Component Value Date HUMANMETAPNE Not Detected 12/24/2024 HUMANMETAPNE Not Detected 12/24/2024 COVID19: No results found for: COVID19 Legionella Ag: Lab Results Component Value Date LEGIONELLAPN Not Detected 12/24/2024 Strep Ag: No results for input(s): "STREPPNEUMO" in the last 72 hours. Imaging- No new imaging Assessment and Plan: Principal Problem: Cardiac arrest (HCC) Assessment: Acute hypoxic respiratory failure requiring intubation 2/2 ARDS, Bilateral strep pneumo, H. Flu CAP, pulmonary edema, improved Septic shock, resolved V fib arrest Potential methadone and alcohol withdrawal Tobacco abuse Delirium Hypernatremia ABRIL Rhabdomyolysis, resolved Transaminitis, improving Hyperglycemia Hypokalemia Plan: Wean oxygen as tolerated. Will need oxygen to go home with if plans to leave today Reach out to cardiology about ischemic eval and/or ICD eval Aggressive pulmonary hygiene Discontinue Lasix BID. Replete electrolytes as needed Continue seroquel 50 mg qAM, 100 mg at bedtime. Haldol PRN Monitor sugars on SSI Folate and thiamine supplementation GI Prophylaxis: Pantoprazole PO DVT Prophylaxis: Lovenox 40 q 24hr - creatinine clearance >30 Disposition: Transfer to [facility] [1] chlorhexidine, , Topical, Daily enoxaparin, 40 mg, SubCUTAneous, q24h folic acid, 1 mg, Oral, Daily furosemide, 40 mg, IntraVENous, BID insulin regular, 0-12 Units, SubCUTAneous, q6h Lidocaine, 1 patch, TransDERmal, Daily pantoprazole, 40 mg, Oral, Nightly Or pantoprazole (ProtoNix) 40 mg in sodium chloride (PF) 0.9 % 10 mL injection, 40 mg, IntraVENous, Nightly QUEtiapine, 100 mg, Oral, Nightly QUEtiapine, 50 mg, Oral, q AM sodium chloride 0.9%, 5-40 mL, IntraCATHeter, q8h sodium chloride, 4 mL, Nebulization, BID thiamine, 100 mg, Oral, Daily [2] Cosigned by Tristan Cabello DO at 01/04/2025 5:55 PM EDT Associated attestation - Tristan Cabello DO - 01/04/2025 5:55 PM EDT I have personally performed a [id number] diagnostic evaluation on this patient on date of service 01/04/25. History, labs, imaging studies, and electronic medical record have been reviewed by me. This note documented by the [x]greenhouse manager []JORGE reflects my history, exam, and medical decision making. I have reviewed and agree with the care plan. Changes were made in the orders as necessary. ROS documentation was reviewed and negative unless otherwise stated in HPI. Additional pertinent interval history, ROS, and physical exam findings: No complaints this AM but remains confused, off precedex. Downtitrated to 40% 40LPM HFNC, tolerating well with sats above 90% and no respiratory distress. Assessment: HyperNa ICU delirium ARDS Post cardiac arrest Plan: ARDS improving, remains on nasal O2 but no respiratory distress at rest Asking to go home, but is amenable to staying tonight as he is in need of O2 to maintain sats. EPS eval for potential AICD OK for transfer to floors pending bed Images from the original note were not included. Speech-Language Pathology SPEECH LANGUAGE PATHOLOGY [facility] Bedside Swallow Evaluation Patient Name: Chelsea Cole Evaluation Date: 01/03/2025 Date of : 1990 Admission Date: 12/24/2024 4:30 PM Age: 34 y.o. Room/Bed: T3-319/T3-319 A IMPRESSION: No s/s oropharyngeal dysphagia. No overt clinical s/s pulmonary compromise with PO. Risk factors for aspiration include recent extubation and current oxygen requirements. RECOMMENDATION: Recommend Regular solids and Thin liquids and meds as tolerated and the following precautions: - Upright positioning for all PO intake - Slow rate of intake Dysphagia NOMS: Level 6: Swallowing is safe, and individual eats and drinks independently and requires no more than minimal cueing. Individual usually self-cues when difficulty occurs. May need to avoid specific food items (e.g., popcorn) or require additional time (due to difficulty with mastication). Pt would benefit from skilled acute OIL WELL LOGGER services to ensure patient tolerance of the recommended diet. Frequency: 2 days/wk for 1 week Barriers: None Prognosis: excellent D/C Recommendations: to be determined Subjective Patient alert and cooperative. Seen upright in bed. Answers all basic questions with strong vocal quality. Follows all basic commands. Visitors at bedside - spouse. Spoke with MIRANDA Edouard who cleared pt to be evaluated. Dysphagia History: No history of OIL WELL LOGGER services in EMR with retrospective chart review Baseline Diet: Regular Current Diet: Dietary Orders (From admission, onward) Start Ordered 01/02/25 0834 NPO diet without enteral medications Diet effective now Question: Medications? Answer: without enteral medications 01/02/25 0846 Tube Feeding: no Tracheostomy: no Recent Chest Xray/CT of Chest: XR chest 1 view 01/03/2025 Impression Interval extubation. Diffuse pulmonary edema is similar to the prior study when allowing for reduced lung volumes. Report Dictated on Electronically Signed By: Camilo Cage MD Electronically Signed Date/Time: 01/03/2025 8:31 AM EDT Oxygen: Oxygen Therapy: Supplemental oxygen O2 Delivery Method: Heated high flow nasal cannula O2 Flow Rate (L/min): 50 L/min Past Medical History: Medical History[1] Past Surgical History: Surgical History[2] Admission Diagnosis: Patient Active Problem List Diagnosis Date Noted Cardiac arrest (HCC) 12/24/2024 History of Present Illness: Hospital Summary: 34 yo M presented as tx from [place] in vfib cardiac arrest. Received 12 minutes of CPR and intubated prior to tx. Initially admitted under CCU and tx to MICU as patient also with severe PNA, ARDS. Proned 12/25-12/27, stabilized, and extubated 12/28. Unfortunately re-intubated same day d/t severe delirium (though neurologically intact.. following all commands, verbal, etc) and worsened noncardiogenic edema from ARDS. Principal Problem: Cardiac arrest (HCC) Assessment: Acute hypoxic respiratory failure requiring intubation 2/2 ARDS, Bilateral strep pneumo, H. Flu CAP, pulmonary edema Septic shock, resolved V fib arrest Potential methadone and alcohol withdrawal Tobacco abuse Delirium Hypernatremia ABRIL, resolved Rhabdomyolysis, resolved Transaminitis, improving Hyperglycemia Hypokalemia Patient Complaint: None Pain: Pt denies any current pain. PPE Worn: gloves Objective Bedside swallow eval completed. Oral Motor Mechanism Patient has natural dentition. The oral cavity is dry and there is mild dried secretions coating the posterior pharyngeal wall. There is full lingual and labial ROM / strength. Swallowing Examination PO Trials - thin liquid, (straw pipette, straw, sequential swallows) - puree, (teaspoon) - easy to chew solids - regular solids - lemon ice Oral Phase Patient presents with adequate oral receipt of each bolus. There is no anterior bolus loss. There is appropriate bolus containment for each tested texture in the oral cavity. Mastication appeared complete, organized, and timely. Oral transit time appears WFL. There is mild oral residue after the cracker boli for which the patient is aware and clears with a lemon ice chaser bolus. Pharyngeal Phase Hyolaryngeal excursion clinically appears adequate and timely per palpation. 1-2 swallows palpated per bolus, likely indicative of adequate pharyngeal clearance. No overt clinical s/s airway penetration as evidenced by no cough, no throat clear, and no change in vocal quality. Patient swallow is not audible. Patient denies any pharyngeal globus. SpO2 does drop to 85% and RR jumps briefly to 40 x1. Patient and spouse were instructed to use a slow rate of consumption to accommodate current respiratory status. Education Education Given: swallowing strategies, diet recommendations Given To: patient, spouse, and RN Response: verbalizes understanding Goals Patient Stated Goal: To resume a PO menu Encounter Problems Encounter Problems (Active) Swallowing Patient will tolerate the least restrictive diet consistency to allow for safe consumption of daily meals Start: 01/03/25 Expected End: 01/10/25 Therapy Time OIL WELL LOGGER Individual Minutes Time In: 904 Time Out: 924 Minutes: 20 MONICA Varela [1] No past medical history on file. [2] No past surgical history on file. ICU Progress Note Name: Chelsea Cole : 1990(34 y.o.) Date: 01/03/25 Team: MICU Attending: Irineo Subjective: Hospital Summary: 34 yo M presented as tx from [place] in vfib cardiac arrest. Received 12 minutes of CPR and intubated prior to tx. Initially admitted under CCU and tx to MICU as patient also with severe PNA, ARDS. Proned 12/25-12/27, stabilized, and extubated 12/28. Unfortunately re-intubated same day d/t severe delirium (though neurologically intact.. following all commands, verbal, etc) and worsened noncardiogenic edema from ARDS. Interval Events: Successfully extubated to [facility] yesterday morning. Mentation waxed and waned and patient did not sleep overnight despite saphris Continues to complain about wanting water, but denies other complaints, though tachypneic Scheduled Meds:Scheduled Meds[1] Continuous Infusions:Continuous Meds[2] Objective: Last Vitals: BP MAP 133/90 (01/03/25 0800) 103 (01/03/25 08) Arterial BP MAP 127/115 (01/02/25 0800) 121 mmHg (01/02/25 08) Temp 36.7 C (98 F) (01/03/25 08) Pulse 61 (01/03/25 08) Resp (!) 28 (01/03/25 08) SpO2 96 % (01/03/25 08) Weight 72 kg (158 lb 11.7 oz) (01/03/25 0500) BMI Body mass index is 25.62 kg/m . I/O: 01/02 700 - 01/03 659 In: 2433 [I.V.:2433] Out: 2350 [Urine:2350] Ventilator: Resp Rate (Set): 8 Vt (Set, mL): 360 mL IP Set (cm H2O): 12 cm H2O FiO2 (%): 60 % PEEP/CPAP (cm H2O): 8 cm H20 Inspiratory Time (sec): 0.9 sec Oxygen Delivery: O2 Flow Rate (L/min): 60 L/min Invasive Lines / Tubes / Drains: Peripheral IV 12/27/24 Anterior;Distal;Right;Upper Arm (Active) Number of days: 6 Peripheral IV 12/28/24 Anterior;Left Forearm (Active) Number of days: 5 External Urinary Catheter (Active) Number of days: 0 Central Line Indication: NA - patient does not have a central line Alfaro Indications: NA - patient does not have a Alfaro catheter Restraints: Restraints Non-Violent Or Non-Self Destructive December 28, 2024 5:35 Pm Edt NA - patient is not restrained. Wounds: Constitutional: General Appearance [x]WDWN []Obese []Cachectic []Thin []Ill Eyes: Inspection of Pupils/Irises Pupils round and react: [x]Yes []No Sclera: []Icteric [x]Non-Icteric Inspection of Conjunctiva/Lids Conjunctiva: []Injected [x]Non-Injected Lids: [x]Intact []Lesion Present ENT/Mouth: External Inspection of ears/nose [x] Normal [] Scar/Lesion/Mass Inspection of teeth/lips/gums Dentition: [x][place] Teeth []Dentures Lips/Gums: [x]Intact []Lesion Present Mucosa: [x][place] [x]Moist []Dry Neck: External Appearance Overall Appearance: [x]Normal []Lesion/Mass/Crepitus Present Trachea midline: [x]Yes []No Thyroid [x]Normal []Enlarged []Tender []Mass []Absent Respiratory: Respiratory effort []Labored [x]Non-Labored [] Mechanically-Ventilated Auscultation [x]Clear []Crackles []Wheezes []Rhonchi Cardiovascular: Auscultation Rate: [x]Regular []Irregular []Tachycardia []Bradycardia Rhythm: [x]Regular []Irregular Murmur: []Present [x]Absent Extremities Peripheral Edema: []Present []Absent Varicosities: []Present []Absent Gastrointestinal: Abdomen Palpation: [x]Soft []Firm []Tender [x]Non-Tender []Distended [x]Non-distended Mass: []Present [x]Absent Bowel Sounds: []Present []Absent Hernia: []Present [x]Absent Liver/Spleen: []Hepatosplenomegaly [x]Organomegaly Absent Musculoskeletal: Inspection of Digits and Nails Cyanosis: []Present [x]Absent Clubbing: []Present [x]Absent Ischemia: []Present [x]Absent Infection: []Present [x]Absent Extremities MILLS Equally: Except ([]RUE []RLE []LUE []LLE) Strength/Tone: Intact and Normal ([]RUE []RLE []LUE []LLE) Skin: Inspection [x]Normal []Rash []Lesion []Ulcer Palpation [x]Warm []Cool [x]Dry []Clammy []Nodules []Induration []Skin-tightening Cap-Refill: [x] <3 sec [] >3 seconds (delayed) Neurologic: GCS EYE: 4 - Opens spontaneously GCS MOTOR: 6 - Obeys commands for movement GCS VERBAL: 4 - Confused Total GCS: 14 [x] Sensation grossly intact Psych: Mental Status Alert: [x]Yes [] No Oriented: []x0 []X1 [x]X2 []x3 Mood/Affect []Normal []Flat []Agitated []Depressed [x]Anxious []Calm []Sedated []NAD Select Labs within last 24 hours- BMP: Recent Labs 01/01/2530501/01/2590401/02/25 0047 01/02/2540801/02/25 0747 01/03/25330 NA -- < > 148* -- 145 147* K -- < > 3.5 -- 3.4* 3.4* CL -- < > 118* -- 119* 116* CO2 -- < > 19* -- 18* 19* BUN -- < > 29* -- 32* 34* CREATININE -- < > 1.05 -- 0.84 1.14 CALCIUM -- < > 9.6 -- 9.2 9.9 MG 2.3 -- -- 2.2 -- -- PHOS 2.0* -- -- 3.5 -- -- < > = values in this interval not displayed. LFTs: Recent Labs 01/01/2530501/01/2590401/02/2540801/03/25 033 AST 87* -- 75* 65* ALT 105* -- 129* 116* PROT 6.6 -- 7.0 7.5 ALBUMIN 2.6* -- 2.6* 2.7* BILITOT 0.4 -- 0.5 0.8 ALKPHOS 80 -- 102 98 LIPASE -- 264* -- -- Glucose: Recent Labs 12/31/24 0826 12/31/24 0829 12/31/24 1600 12/31/24 1605 01/01/25 0012 01/01/25 0310 01/01/25 0905 01/01/25 1533 01/01/25 1704 01/02/25 0047 01/02/25 0404 01/02/25 0747 01/02/25 0753 01/02/25 1623 01/02/25 2037 01/03/25 0046 01/03/25 0325 01/03/25 0331 01/03/25 0808 GLUCOSE 179* -- 167* -- 124* -- 134* -- 161* 127* -- 140* -- -- -- -- -- 104* -- POCGLU -- < > -- < > -- < > -- 146* -- -- 144* -- 135* 115* 107* 100 99 -- 111* < > = values in this interval not displayed. Procal: Recent Labs 01/02/25408 PROCAL 0.60* CBC: Recent Labs 01/01/25 0306 01/01/25 0901/02/25 0409 01/02/25 0410 01/02/2547 01/03/25 0331 WBC 15.0* -- 18.2* -- -- 18.5* HGB 9.8* < > 9.9* 12.7 11.5 11.4* HCT 30.6* -- 30.2* -- -- 34.6* PLT 219 -- 227 -- -- 304 MCV 93.0 -- 91.2 -- -- 88.5 RDW 15.1* -- 14.7 -- -- 14.1 < > = values in this interval not displayed. ABGs: Recent Labs 01/01/25 1536 01/02/25 0410 01/02/25 0747 PHART 7.412 7.406 7.441 [id number] 30.0* 31.4* 29.4* PO2ART 222.8* 100.7* 74.3* [id number] 18.7* 19.3* 19.6* [id number] Ventilator Ventilator Ventilator Lactic Acid: No results for input(s): "LACTATE" in the last 72 hours. INR: No results for input(s): "INR" in the last 72 hours. Cardiac Injury Profile: Recent Labs 12/31/24 0826 CKTOTAL 835* Labs in Last 3 months: Lab Results Component Value Date TSH 1.89 12/24/2024 INR 1.2 (H) 12/24/2024 Microbiology- Urine Cx: Lab Results Component Value Date URINECX No growth (<1,000 CFU/mL) 12/25/2024 Blood Cx: Lab Results Component Value Date BLOODCX No growth at 5 days 12/25/2024 BLOODCX No growth at 5 days 12/25/2024 Sputum Cx: Lab Results Component Value Date RESPCULT No growth of normal respiratory samuel. 12/28/2024 Gram Stain: Lab Results Component Value Date LABGRAM 12/28/2024 Many Polymorphonuclear leukocytes per low power field LABGRAM No epithelial cells seen 12/28/2024 LABGRAM No organisms seen 12/28/2024 PNA PCR: Lab Results Component Value Date HUMANMETAPNE Not Detected 12/24/2024 HUMANMETAPNE Not Detected 12/24/2024 COVID19: No results found for: COVID19 Legionella Ag: Lab Results Component Value Date LEGIONELLAPN Not Detected 12/24/2024 Strep Ag: No results for input(s): "STREPPNEUMO" in the last 72 hours. Imaging- pending Assessment and Plan: Principal Problem: Cardiac arrest (HCC) Assessment: Acute hypoxic respiratory failure requiring intubation 2/2 ARDS, Bilateral strep pneumo, H. Flu CAP, pulmonary edema, improved Septic shock, resolved V fib arrest Potential methadone and alcohol withdrawal Tobacco abuse Delirium Hypernatremia ABRIL Rhabdomyolysis, resolved Transaminitis, improving Hyperglycemia Hypokalemia Plan: Wean HFNC as tolerated Aggressive pulmonary hygiene Finish steroid course today Replete electrolytes as needed Hold seroquel 50 mg qAM, 100 mg at bedtime while NPO. Precedex and Haldol PRN. Wean off Saphris x1 this morning Monitor sugars on SSI Folate and thiamine supplementation GI Prophylaxis: Pantoprazole IV DVT Prophylaxis: Lovenox 40 q 24hr - creatinine clearance >30 Disposition: Transfer to [facility] [1] acetaminophen, 1,000 mg, IntraVENous, q8h asenapine, 5 mg, SubLINGual, Once chlorhexidine, , Topical, Daily enoxaparin, 40 mg, SubCUTAneous, q24h folic acid, 1 mg, Oral, Daily furosemide, 40 mg, IntraVENous, BID Hydrocortisone Sod Suc (PF), 16 mg, IntraVENous, Daily insulin regular, 0-12 Units, SubCUTAneous, q6h Lidocaine, 1 patch, TransDERmal, Daily pantoprazole, 40 mg, Oral, Nightly Or pantoprazole (ProtoNix) 40 mg in sodium chloride (PF) 0.9 % 10 mL injection, 40 mg, IntraVENous, Nightly potassium chloride, 40 mEq, IntraVENous, Once QUEtiapine, 100 mg, Oral, Nightly QUEtiapine, 50 mg, Oral, q AM sodium chloride 0.9%, 5-40 mL, IntraCATHeter, q8h sodium chloride, 4 mL, Nebulization, BID thiamine, 100 mg, Oral, Daily [2] dexmedeTOMIDine, 0.1-1.5 mcg/kg/hr, Last Rate: 1.5 mcg/kg/hr (01/03/25 0700) Cosigned by Tristan Cabello DO at 01/03/2025 10:52 AM EDT Associated attestation - Tristan Cabello DO - 01/03/2025 10:52 AM EDT I have personally performed a [id number] diagnostic evaluation on this patient on date of service 01/03/25. History, labs, imaging studies, and electronic medical record have been reviewed by me. This note documented by the [x]greenhouse manager []JORGE reflects my history, exam, and medical decision making. I have reviewed and agree with the care plan. Changes were made in the orders as necessary. ROS documentation was reviewed and negative unless otherwise stated in HPI. Additional pertinent interval history, ROS, and physical exam findings: No complaints this AM but remains confused, off precedex. Downtitrated to 40% 40LPM HFNC, tolerating well with sats above 90% and no respiratory distress. Assessment: HyperNa ICU delirium ARDS Plan: HyperNa is mild, now able to take PO water should correct but will repeat BMP tomorrow Delirium improving, off precedex. Maintain delirium precautions, add melatonin at night, remove lines/tubes as much as able and encourage ambulation as tolerated ARDS improving, now 40/40 HFNC and stable for transfer out of ICU Images from the original note were not included. PHYSICAL THERAPY [facility] Name/MRN: Chelsea Cole ([id number]) Date: 01/02/2025 Hold Note Pt was extubated. Per RN, pt now with increased WOB. Will hold PT, re-attempt as able. Luis Geronimo PT ICU Progress Note Name: Chelsea Cole : 1990(34 y.o.) Date: 01/02/25 Team: MICU Attending: Lorie Subjective: Hospital Summary: 34 yo M presented as tx from [place] in vfib cardiac arrest. Received 12 minutes of CPR and intubated prior to tx. Initially admitted under CCU and tx to MICU as patient also with severe PNA, ARDS. Proned 12/25-12/27, stabilized, and extubated 12/28. Unfortunately re-intubated same day d/t severe delirium (though neurologically intact.. following all commands, verbal, etc) and worsened noncardiogenic edema from ARDS. Interval Events: Diuresed well over the weekend. NAEON Awake and following commands off sedation and on spontaneous trial since around 0600. Intermittently tachypneic but redirectable Scheduled Meds:acetaminophen, 1,000 mg, IntraVENous, q8h cefTRIAXone, 2,000 mg, IntraVENous, q24h chlorhexidine, , Topical, Daily [START ON 01/03/2025] folic acid, 1 mg, Oral, Daily furosemide, 40 mg, IntraVENous, BID heparin, 5,000 Units, SubCUTAneous, 2 times per day Hydrocortisone Sod Suc (PF), 16 mg, IntraVENous, Daily insulin regular, 0-12 Units, SubCUTAneous, q6h Lidocaine, 1 patch, TransDERmal, Daily pantoprazole, 40 mg, Oral, Nightly Or pantoprazole (ProtoNix) 40 mg in sodium chloride (PF) 0.9 % 10 mL injection, 40 mg, IntraVENous, Nightly potassium chloride, 40 mEq, IntraVENous, Once QUEtiapine, 100 mg, Oral, Nightly [START ON 01/03/2025] QUEtiapine, 50 mg, Oral, q AM sodium chloride 0.9%, 5-40 mL, IntraCATHeter, q8h thiamine, 100 mg, Oral, Daily Continuous Infusions:dexmedeTOMIDine, 0.1-1.5 mcg/kg/hr, Last Rate: 1.5 mcg/kg/hr (01/02/25 0503) lactated Ringer's, 75 mL/hr Objective: Last Vitals: BP MAP (!) 136/111 (01/02/25 09) 120 (01/02/25899) Arterial BP MAP 127/115 (01/02/25 0800) 121 mmHg (01/02/25 08) Temp 37.4 C (99.3 F) (01/02/25899) Pulse 68 (01/02/25899) Resp (!) 32 (01/02/25899) SpO2 91 % (01/02/25899) Weight 78.4 kg (172 lb 13.5 oz) (12/31/24 0500) BMI Body mass index is 27.9 kg/m . I/O: 01/01 700 - 01/02 659 In: 8634.9 [I.V.:4846.9] Out: 7575 [Urine:7575] Ventilator: Resp Rate (Set): 8 Vt (Set, mL): 360 mL IP Set (cm H2O): 12 cm H2O FiO2 (%): 50 % PEEP/CPAP (cm H2O): 8 cm H20 Inspiratory Time (sec): 0.9 sec Oxygen Delivery: O2 Flow Rate (L/min): 60 L/min Invasive Lines / Tubes / Drains: Peripheral IV 12/24/24 Left Antecubital (Active) Number of days: 9 Peripheral IV 12/27/24 Anterior;Distal;Right;Upper Arm (Active) Number of days: 5 Peripheral IV 12/28/24 Anterior;Left Forearm (Active) Number of days: 4 External Urinary Catheter (Active) Number of days: 0 Arterial Line 12/24/24 Right Radial (Active) Number of days: 8 Central Line Indication: NA - patient does not have a central line Alfaro Indications: Patient no longer meets indications for a Alfaro catheter. Will place order to discontinue. Restraints: Restraints Non-Violent Or Non-Self Destructive December 28, 2024 5:35 Pm Edt Restraint order already placed. Order is valid for duration of episode. Wounds: Constitutional: General Appearance [x]WDWN []Obese []Cachectic []Thin []Ill Eyes: Inspection of Pupils/Irises Pupils round and react: [x]Yes []No Sclera: []Icteric [x]Non-Icteric Inspection of Conjunctiva/Lids Conjunctiva: []Injected [x]Non-Injected Lids: [x]Intact []Lesion Present ENT/Mouth: External Inspection of ears/nose [x] Normal [] Scar/Lesion/Mass Inspection of teeth/lips/gums Dentition: [x][place] Teeth []Dentures Lips/Gums: [x]Intact []Lesion Present Mucosa: [x][place] [x]Moist []Dry Neck: External Appearance Overall Appearance: [x]Normal []Lesion/Mass/Crepitus Present Trachea midline: [x]Yes []No Thyroid [x]Normal []Enlarged []Tender []Mass []Absent Respiratory: Respiratory effort []Labored [x]Non-Labored [x] Mechanically-Ventilated Auscultation [x]Clear []Crackles []Wheezes []Rhonchi Cardiovascular: Auscultation Rate: [x]Regular []Irregular []Tachycardia []Bradycardia Rhythm: [x]Regular []Irregular Murmur: []Present [x]Absent Extremities Peripheral Edema: []Present [x]Absent Varicosities: []Present [x]Absent Gastrointestinal: Abdomen Palpation: [x]Soft []Firm []Tender [x]Non-Tender []Distended [x]Non-distended Mass: []Present [x]Absent Bowel Sounds: []Present []Absent Hernia: []Present [x]Absent Liver/Spleen: []Hepatosplenomegaly []Organomegaly Absent Musculoskeletal: Inspection of Digits and Nails Cyanosis: []Present [x]Absent Clubbing: []Present [x]Absent Ischemia: []Present [x]Absent Infection: []Present [x]Absent Extremities MILLS Equally: Except ([]RUE []RLE []LUE []LLE) Strength/Tone: Intact and Normal ([]RUE []RLE []LUE []LLE) Skin: Inspection [x]Normal []Rash []Lesion []Ulcer Palpation [x]Warm []Cool [x]Dry []Clammy []Nodules []Induration []Skin-tightening Cap-Refill: [x] <3 sec [] >3 seconds (delayed) Neurologic: GCS EYE: 4 - Opens spontaneously GCS MOTOR: 6 - Obeys commands for movement GCS VERBAL: 4 - Confused Total GCS: 14 [x] Sensation grossly intact Psych: Mental Status Alert: [x]Yes [] No Oriented: []x0 []X1 [x]X2 []x3 Mood/Affect [x]Normal []Flat []Agitated []Depressed []Anxious [x]Calm []Sedated []NAD Select Labs within last 24 hours- BMP: Recent Labs 12/31/24 0342 12/31/24 0826 01/01/25 0306 01/01/25 0905 01/01/25 1704 01/02/25 0047 01/02/25 0409 01/02/25 0747 NA -- < > -- < > 147* 148* -- 145 K -- < > -- < > 4.0 3.5 -- 3.4* CL -- < > -- < > 123* 118* -- 119* CO2 -- < > -- < > 14* 19* -- 18* BUN -- < > -- < > 29* 29* -- 32* CREATININE -- < > -- < > 0.94 1.05 -- 0.84 CALCIUM -- < > -- < > 8.6 9.6 -- 9.2 MG 2.3 -- 2.3 -- -- -- 2.2 -- PHOS 2.8 -- 2.0* -- -- -- 3.5 -- < > = values in this interval not displayed. LFTs: Recent Labs 12/31/2434101/01/2530501/01/25 0901/02/25 040 AST 80* 87* -- 75* ALT 106* 105* -- 129* PROT 6.8 6.6 -- 7.0 ALBUMIN 2.6* 2.6* -- 2.6* BILITOT 0.6 0.4 -- 0.5 ALKPHOS 78 80 -- 102 LIPASE -- -- 264* -- Glucose: Recent Labs 12/30/24 2355 12/31/24 0323 12/31/24 0826 12/31/24 0829 12/31/24 1351 12/31/24 1600 12/31/24 1605 12/31/24 2050 01/01/25 0012 01/01/25 0310 01/01/25 0904 01/01/25 0905 01/01/25 1533 01/01/25 1704 01/02/25 0047 01/02/25 0404 01/02/25 0747 01/02/25 0753 GLUCOSE 184* -- 179* -- -- 167* -- -- 124* -- -- 134* -- 161* 127* -- 140* -- POCGLU -- < > -- < > 164* -- 159* 152* -- 115* 127* -- 146* -- -- 144* -- 135* < > = values in this interval not displayed. Procal: Recent Labs 12/31/2434101/02/25408 PROCAL 0.95* 0.60* CBC: Recent Labs 12/31/2434112/31/24 1020 01/01/25 0306 01/01/25 0905 01/02/25 0409 01/02/25 0410 01/02/25 0747 WBC 13.8* -- 15.0* -- 18.2* -- -- HGB 9.8* < > 9.8* < > 9.9* 12.7 11.5 HCT 29.1* -- 30.6* -- 30.2* -- -- PLT 193 -- 219 -- 227 -- -- MCV 91.2 -- 93.0 -- 91.2 -- -- RDW 14.7 -- 15.1* -- 14.7 -- -- < > = values in this interval not displayed. ABGs: Recent Labs 01/01/25 1536 01/02/25 0410 01/02/25 0747 PHART 7.412 7.406 7.441 [id number] 30.0* 31.4* 29.4* PO2ART 222.8* 100.7* 74.3* [id number] 18.7* 19.3* 19.6* [id number] Ventilator Ventilator Ventilator Lactic Acid: No results for input(s): "LACTATE" in the last 72 hours. INR: No results for input(s): "INR" in the last 72 hours. Cardiac Injury Profile: Recent Labs 12/31/24 0826 CKTOTAL 835* Labs in Last 3 months: Lab Results Component Value Date TSH 1.89 12/24/2024 INR 1.2 (H) 12/24/2024 Microbiology- Urine Cx: Lab Results Component Value Date URINECX No growth (<1,000 CFU/mL) 12/25/2024 Blood Cx: Lab Results Component Value Date BLOODCX No growth at 5 days 12/25/2024 BLOODCX No growth at 5 days 12/25/2024 Sputum Cx: Lab Results Component Value Date RESPCULT No growth of normal respiratory samuel. 12/28/2024 Gram Stain: Lab Results Component Value Date LABGRAM 12/28/2024 Many Polymorphonuclear leukocytes per low power field LABGRAM No epithelial cells seen 12/28/2024 LABGRAM No organisms seen 12/28/2024 PNA PCR: Lab Results Component Value Date HUMANMETAPNE Not Detected 12/24/2024 HUMANMETAPNE Not Detected 12/24/2024 COVID19: No results found for: COVID19 Legionella Ag: Lab Results Component Value Date LEGIONELLAPN Not Detected 12/24/2024 Strep Ag: No results for input(s): "STREPPNEUMO" in the last 72 hours. Imaging- improved from prior studies Assessment and Plan: Principal Problem: Cardiac arrest (HCC) Assessment: Acute hypoxic respiratory failure requiring intubation 2/2 ARDS, Bilateral strep pneumo, H. Flu CAP, pulmonary edema Septic shock, resolved V fib arrest Potential methadone and alcohol withdrawal Tobacco abuse Delirium Hypernatremia ABRIL, resolved Rhabdomyolysis, resolved Transaminitis, improving Hyperglycemia Hypokalemia Plan: Extubate and keep NPO until OIL WELL LOGGER eval tomorrow Finish rocephin for 10 day course today Transition cortisone back to hydrocortisone for now. Continue to wean. Likely dc tomorrow Replete electrolytes as needed Hold seroquel 50 mg qAM, 100 mg at bedtime while NPO. Precedex and Haldol PRN. Consider saphris LR maintenance. Discontinue NPH and monitor sugars on SSI Folate and thiamine supplementation GI Prophylaxis: Pantoprazole IV DVT Prophylaxis: Lovenox 40 q 24hr - creatinine clearance >30 Disposition: Remain in ICU Status Cosigned by Marquez Melo MD at 01/02/2025 8:14 PM EDT Associated attestation - Marquez Melo MD - 01/02/2025 8:14 PM EDT I have personally seen the patient and examined along with the JORGE/resident team. I personally obtained the pérez and relevent portions of the history and performed physical exam. I reviewed the chart including MAR , labs and radiology and discussed the patient's plan of action with the resident/JORGE. This note reflects my plan of care as I have edited the note to reflect my findings and my assessment and plan. Date of service: 01/02/25 Discussed with: [x]Residents [x]Patient/Family [x]RN [x]Consultants []SW/TCC []Other []JORGE Personally Reviewed: [x]Epic notes [x]Radiology studies [x]Labs []EKG []Other In addition to resident/JORGE documentation pertinent History, ROS, and/or Physical Exam findings include: No acute events overnight. Extubated without issue this morning. Delirious, but redirectable. Assessment: -OHCA - VF/VT, likely hypoxemic driven . -ARDS 2/2 massive aspiration -Septic shock - resolved -ICU delirium -Hypernatremia -Hypokalemia -ABRIL -Hypertransaminasemia - improved Plan: -Initiate aggressive pulmonary hygiene measures, IS, Acapella, hypertonic nebs -Continue precedex, especially nocturnally. Trial nightly Saphris -ICU delirium bundle, lights on/OOB daily, limit nightly disturbances -Continue abx -Wean stress dose steroids, likely stop tomorrow -Replete potassium -Continue celeste diuresis through today, approaching euvolemia -NPO pending OIL WELL LOGGER eval tomorrow am -Family updated at bedside -Remainder as per resident documentation Excluding procedures, the total critical care time invested in the care of this patient with life threatening/unstable organ failure today is at least 35 minutes. This includes direct patient contact, review of medical record, management of life support systems, review of data including imaging and labs, discussions with other team members, patient's family and physicians. [facility] Respiratory Care Department Progress Note Spontaneous Awakening Trial Safety Screen Spontaneous Awakening Trial (SAT - RN) : Current RASS greater than +2 (01/01/25 0500) Wean Screen SpO2>/=88%: Yes (01/02/25236) FiO2</=50%: Yes (01/02/25236) PEEP </=8cmH2O: Yes (01/02/25236) HR <140 BPM: Yes (01/02/25236) RR </= 35 breaths/min: Yes (01/02/25236) MAP >/= 65mmHg: Yes (01/02/25236) Arterial pH >7.30: Yes (01/02/25236) Safety Screen Spontaneous Breathing Trial (SBT - RT) : Proceed with SBT - No exclusion criteria met (01/02/25236) Spontaneous Breathing Trial Weaning Start Time: 0640 (01/02/25819) Weaning Tidal Volume: 380 mL (01/02/25819) Weaning Respiratory Rate: 26 (01/02/25819) Spontaneous Minute Volume (MV): 13 (01/02/25819) Total RSBI: 68 (01/02/25819) Weaning Tolerance: Good (01/02/25819) Weaning Stop Time: 0820 (01/02/25819) Weaning Duration (min): 80 (01/02/25819) Spontaneous Breathing Trial (SBT - RT) Outcome: SBT Passed (01/02/25819) Vent Settings Vent Mode: Spontaneous (01/02/25819) Mandatory Type: Pressure Control (01/02/25 0500) Resp Rate (Set): 8 (01/01/251530) Vt (Set, mL): 360 mL (12/26/24 1625) IP Set (cm H2O): 12 cm H2O (01/01/251530) FiO2 (%): 50 % (01/02/25 1000) PEEP/CPAP (cm H2O): 8 cm H20 (01/02/25819) Inspiratory Time (sec): 0.9 sec (01/01/251530) Vitals MAP (mmHg): 112 (01/02/25 1000) Heart Rate: 80 (01/02/25 1000) Resp: 21 (01/02/25 1000) SpO2: 94 % (01/02/25 1000) Suctioning/Secretions Secretion Amount: Small (01/01/251530) Secretion Color: White, Yellow (01/01/251530) Secretion Consistency: Thick (01/01/251530) ABG results Recent Labs 01/01/25 1536 01/02/25 0410 01/02/25 0747 PHART 7.412 7.406 7.441 [id number] 30.0* 31.4* 29.4* PO2ART 222.8* 100.7* 74.3* [id number] 18.7* 19.3* 19.6* [id number] Ventilator Ventilator Ventilator Does this patient meet criteria for termination of mechanical ventilation Yes- Notified physician below Name of physician notified via secure chat or in person : Dr. Miramontes (NA if patient did not meet criteria) Comments: Extubated to HHFNC 50% 50lpm Thank you for involving Respiratory in the care of this patient, [facility] Respiratory Care Department Progress Note Spontaneous Awakening Trial Safety Screen Spontaneous Awakening Trial (SAT - RN) : Current RASS greater than +2 (01/01/25 0500) Wean Screen SpO2>/=88%: Yes (01/01/25600) FiO2</=50%: Yes (01/01/25600) PEEP </=8cmH2O: Yes (01/01/25600) HR <140 BPM: Yes (01/01/25600) RR </= 35 breaths/min: Yes (01/01/25600) MAP >/= 65mmHg: Yes (01/01/25600) Arterial pH >7.30: Yes (01/01/25600) Safety Screen Spontaneous Breathing Trial (SBT - RT) : Proceed with SBT - No exclusion criteria met (01/01/25600) Spontaneous Breathing Trial Weaning Start Time: 1350 (01/01/251354) Weaning Tidal Volume: 338 mL (01/01/251354) Weaning Respiratory Rate: 38 (01/01/251354) Spontaneous Minute Volume (MV): 11.8 (01/01/251354) Total RSBI: 112 (01/01/251354) Weaning Tolerance: Poor (01/01/251354) Weaning Stop Time: 1355 (01/01/251354) Weaning Duration (min): 5 (01/01/251354) Spontaneous Breathing Trial (SBT - RT) Outcome: RSBI>105 - SBT failure (RR 35-40) (01/01/251354) Vent Settings Vent Mode: Assist control (01/01/251354) Mandatory Type: Pressure Control (01/01/251354) Resp Rate (Set): 8 (01/01/251354) Vt (Set, mL): 360 mL (12/26/241624) IP Set (cm H2O): 12 cm H2O (01/01/251354) FiO2 (%): 55 % (01/01/251354) PEEP/CPAP (cm H2O): 8 cm H20 (01/01/251354) Inspiratory Time (sec): 0.9 sec (01/01/251354) Vitals MAP (mmHg): 114 (12/30/24 1245) Heart Rate: 56 (01/01/25 1355) Resp: (!) 27 (01/01/25 1355) SpO2: 99 % (01/01/25 1355) Suctioning/Secretions Secretion Amount: Small (01/01/25 1222) Secretion Color: White, Yellow (01/01/25 1222) Secretion Consistency: Thick (01/01/25 1222) ABG results Recent Labs 12/31/24 1624 01/01/25 0012 01/01/25 0905 PHART 7.464* 7.446 7.453* [id number] 41.5 33.0* 29.8* PO2ART 80.1 72.0* 87.1 [id number] 29.1* 22.2 20.4* [id number] Ventilator Ventilator Ventilator Does this patient meet criteria for termination of mechanical ventilation No - Failed SBT Name of physician notified via secure chat or in person : NA (NA if patient did not meet criteria) Comments: Thank you for involving Respiratory in the care of this patient, ICU Progress Note Name: Chelsea Cole : 1990(34 y.o.) Date: 01/01/25 Team: MICU Attending: Spencer Ellis Subjective: Hospital Summary: 34 yo M presented as tx from [place] in vfib cardiac arrest. Received 12 minutes of CPR and intubated prior to tx. Initially admitted under CCU and tx to MICU as patient also with severe PNA, ARDS. Proned 12/25-12/27, stabilized, and extubated 12/28. Unfortunately re-intubated same day d/t severe delirium (though neurologically intact.. following all commands, verbal, etc) and worsened noncardiogenic edema from ARDS. Interval Events: P/F 93 --> 111 --> 158 -->exam and CXR markedly improved Seroquel helpful, precedex too but bradycardia -->much less restless. Still purposeful, follows commands Fever this AM -->lipase added (TG has been high from prop) -->procal down-trending yesterday, repeat ordered for Thursday Scheduled Meds :acetaminophen, 1,000 mg, IntraVENous, q8h acetaZOLAMIDE (Diamox) 500 mg in sterile water (PF) 5 mL injection, 500 mg, IntraVENous, q12h cefTRIAXone, 2,000 mg, IntraVENous, q24h chlorhexidine, , Topical, Daily docusate, 50 mg, Per NG/OG Tube, Daily folic acid, 1 mg, Per NG/OG Tube, Daily heparin, 5,000 Units, SubCUTAneous, 2 times per day hydrocortisone, 10 mg, Oral, q24h hydrocortisone, 20 mg, Oral, q AM insulin NPH, 5 Units, SubCUTAneous, q12h insulin regular, 0-12 Units, SubCUTAneous, q6h Lidocaine, 1 patch, TransDERmal, Daily pantoprazole, 40 mg, Oral, Nightly Or pantoprazole (ProtoNix) 40 mg in sodium chloride (PF) 0.9 % 10 mL injection, 40 mg, IntraVENous, Nightly potassium chloride, 40 mEq, Oral, BID QUEtiapine, 100 mg, Per NG/OG Tube, Nightly QUEtiapine, 50 mg, Per NG/OG Tube, q AM Senna, 5 mL, Per NG/OG Tube, Nightly sodium chloride 0.9%, 5-40 mL, IntraCATHeter, q8h thiamine, 100 mg, Oral, Daily Continuous Infusions:dexmedeTOMIDine, 0.1-1.5 mcg/kg/hr, Last Rate: 0.8 mcg/kg/hr (01/01/25 0743) fentaNYL, 25-200 mcg/hr, Last Rate: 150 mcg/hr (01/01/25799) propofol, 5-50 mcg/kg/min, Last Rate: 30 mcg/kg/min (01/01/25 07) Objective: Last Vitals: BP MAP 148/99 (12/30/24 1245) 114 (12/30/24 1245) Arterial BP MAP 142/93 (01/01/25899) 110 mmHg (01/01/25899) Temp (!) 38.4 C (101.1 F) (01/01/25899) Pulse 73 (01/01/25899) Resp (!) 37 (01/01/25899) SpO2 95 % (01/01/25 09) Weight 78.4 kg (172 lb 13.5 oz) (12/31/24 0500) BMI Body mass index is 27.9 kg/m . I/O: 12/31 07 - 01/01 659 In: 2339 [I.V.:1139] Out: 3350 [Urine:3350] Ventilator: Resp Rate (Set): 8 Vt (Set, mL): 360 mL IP Set (cm H2O): 12 cm H2O FiO2 (%): 55 % PEEP/CPAP (cm H2O): 8 cm H20 Inspiratory Time (sec): 0.9 sec Oxygen Delivery: O2 Flow Rate (L/min): 60 L/min Invasive Lines / Tubes / Drains: Peripheral IV 12/24/24 Left Antecubital (Active) Number of days: 7 Peripheral IV 12/27/24 Anterior;Distal;Right;Upper Arm (Active) Number of days: 3 Peripheral IV 12/27/24 Anterior;Proximal;Right Forearm (Active) Number of days: 3 Peripheral IV 12/28/24 Anterior;Left Forearm (Active) Number of days: 2 NG/OG Tube Orogastric Center mouth (Active) Number of days: 2 Urethral Catheter Temperature probe (Active) Number of days: 7 ETT 7.5 mm (Active) Number of days: 2 Arterial Line 12/24/24 Right Radial (Active) Number of days: 6 Central Line Indication: Vesicant infusions/medications at high risk of causing extravasation Alfaro Indications: Hourly I&Os (Critical Care ONLY) Restraints: Restraints Non-Violent Or Non-Self Destructive December 28, 2024 5:35 Pm Edt Restraint order already placed. Order is valid for duration of episode. Wounds: Constitutional: General Appearance [x]WDWN []Obese []Cachectic []Thin []Ill Eyes: Inspection of Pupils/Irises Pupils round and react: [x]Yes []No Sclera: []Icteric [x]Non-Icteric Inspection of Conjunctiva/Lids Conjunctiva: []Injected [x]Non-Injected Lids: []Intact []Lesion Present ENT/Mouth: External Inspection of ears/nose [x] Normal [] Scar/Lesion/Mass Inspection of teeth/lips/gums Dentition: [x][place] Teeth []Dentures Lips/Gums: []Intact []Lesion Present Mucosa: [][place] [x]Moist []Dry Neck: External Appearance Overall Appearance: [x]Normal []Lesion/Mass/Crepitus Present Trachea midline: [x]Yes []No Thyroid [x]Normal []Enlarged []Tender []Mass []Absent Respiratory: Respiratory effort []Labored [x]Non-Labored [] Mechanically-Ventilated Auscultation []Clear [x]Crackles (much reduced) []Wheezes []Rhonchi Cardiovascular: Auscultation Rate: [x]Regular []Irregular []Tachycardia []Bradycardia Rhythm: [x]Regular []Irregular Murmur: []Present []Absent Extremities Peripheral Edema: []Present [x]Absent Varicosities: []Present []Absent Gastrointestinal: Abdomen Palpation: [x]Soft []Firm []Tender [x]Non-Tender []Distended [x]Non-distended Mass: []Present []Absent Bowel Sounds: []Present []Absent Hernia: []Present []Absent Liver/Spleen: []Hepatosplenomegaly []Organomegaly Absent Musculoskeletal: Inspection of Digits and Nails Cyanosis: []Present [x]Absent Clubbing: []Present []Absent Ischemia: []Present []Absent Infection: []Present []Absent Extremities MILLS Equally: Except ([]RUE []RLE []LUE []LLE) Strength/Tone: Intact and Normal ([x]RUE [x]RLE [x]LUE [x]LLE) Skin: Inspection [x]Normal []Rash []Lesion []Ulcer Palpation [x]Warm []Cool []Dry []Clammy []Nodules []Induration []Skin-tightening Cap-Refill: [x] <3 sec [] >3 seconds (delayed) Neurologic: GCS EYE: 4 - Opens spontaneously GCS MOTOR: 4 - Withdraws from pain GCS VERBAL: 1 - No response Total GCS: 9T (on sedation) [x] Sensation grossly intact Psych: Mental Status Alert: []Yes [x] No Oriented: [x]x0 []X1 []X2 []x3 Mood/Affect []Normal []Flat []Agitated []Depressed []Anxious []Calm [x]Sedated [x]NAD Select Labs within last 24 hours- BMP: Recent Labs 12/30/24 0812/30/24 16112/31/24 03412/31/24 0812/31/24 1600 01/01/25 0012 01/01/25 0306 01/01/25 0905 NA 153* < > -- < > 153* 153* -- 150* K 2.8* < > -- < > 3.1* 3.6 -- 3.5 CL 109* < > -- < > 118* 124* -- 121* CO2 34* < > -- < > 25 18* -- 17* BUN 27* < > -- < > 33* 30* -- 29* CREATININE 1.05 < > -- < > 0.95 0.92 -- 1.05 CALCIUM 8.7 < > -- < > 8.5 8.7 -- 9.3 MG 2.5 -- 2.3 -- -- -- 2.3 -- PHOS 1.6* -- 2.8 -- -- -- 2.0* -- < > = values in this interval not displayed. LFTs: Recent Labs 12/30/2443712/31/2434101/01/25 0306 AST 119* 80* 87* ALT 118* 106* 105* PROT 6.7 6.8 6.6 ALBUMIN 2.5* 2.6* 2.6* BILITOT 0.5 0.6 0.4 ALKPHOS 72 78 80 Glucose: Recent Labs 12/30/24 0438 12/30/24 0828 12/30/24 1005 12/30/24 1615 12/30/24 2125 12/30/24 2355 12/31/24 0323 12/31/24 0826 12/31/24 0829 12/31/24 1351 12/31/24 1600 12/31/24 1605 12/31/24 2050 01/01/25 0012 01/01/25 0310 01/01/25 0904 01/01/25 0905 GLUCOSE 154* 132* -- 214* -- 184* -- 179* -- -- 167* -- -- 124* -- -- 134* POCGLU -- -- < > -- 164* -- 200* -- 181* 164* -- 159* 152* -- 115* 127* -- < > = values in this interval not displayed. Procal: Recent Labs 12/31/24 034 PROCAL 0.95* CBC: Recent Labs 12/30/24 0438 12/30/24 0829 12/31/24 0342 12/31/24 1020 01/01/25 0012 01/01/25 0306 01/01/25 0905 WBC 13.8* -- 13.8* -- -- 15.0* -- HGB 10.5 9.4* < > 9.8* < > 10.3 9.8* 11.7 HCT 27.3* -- 29.1* -- -- 30.6* -- PLT 168 -- 193 -- -- 219 -- MCV 90.4 -- 91.2 -- -- 93.0 -- RDW 14.6 -- 14.7 -- -- 15.1* -- < > = values in this interval not displayed. ABGs: Recent Labs 12/31/24 1624 01/01/25 0012 01/01/25 0905 PHART 7.464* 7.446 7.453* [id number] 41.5 33.0* 29.8* PO2ART 80.1 72.0* 87.1 [id number] 29.1* 22.2 20.4* [id number] Ventilator Ventilator Ventilator Lactic Acid: No results for input(s): "LACTATE" in the last 72 hours. INR: No results for input(s): "INR" in the last 72 hours. Cardiac Injury Profile: Recent Labs 12/31/24 0826 CKTOTAL 835* Labs in Last 3 months: Lab Results Component Value Date TSH 1.89 12/24/2024 INR 1.2 (H) 12/24/2024 Microbiology- Urine Cx: Lab Results Component Value Date URINECX No growth (<1,000 CFU/mL) 12/25/2024 Blood Cx: Lab Results Component Value Date BLOODCX No growth at 5 days 12/25/2024 BLOODCX No growth at 5 days 12/25/2024 Sputum Cx: Lab Results Component Value Date RESPCULT No growth of normal respiratory samuel. 12/28/2024 Gram Stain: Lab Results Component Value Date LABGRAM 12/28/2024 Many Polymorphonuclear leukocytes per low power field LABGRAM No epithelial cells seen 12/28/2024 LABGRAM No organisms seen 12/28/2024 PNA PCR: Lab Results Component Value Date HUMANMETAPNE Not Detected 12/24/2024 HUMANMETAPNE Not Detected 12/24/2024 COVID19: No results found for: COVID19 Legionella Ag: Lab Results Component Value Date LEGIONELLAPN Not Detected 12/24/2024 Strep Ag: No results for input(s): "STREPPNEUMO" in the last 72 hours. Imaging- Tubes OK, ARDS edema markedly reduced Assessment and Plan: Acute hypoxic respiratory failure ARDS d/t severe CAP (S pneumo, H flu) Septic shock (resolved) VFA (w/ neurologic recovery) Methadone abuse, mild alcohol withdrawal ICU delirium Hypernatremia ABRIL (including rhabdo) Transaminitis (resolving) Electrolyte dyscrasias Forward progress -->P/F 93 --> 111 --> 158 -->exam and CXR improved -->extubation possible at >150, probable at >200 -->has a real shot of extubation to [facility] this afternoon Rotated zosyn to [facility] yesterday.. No cx results/ suscep yet... -->don't need PSA coverage -->Procal still bit elevated but decreasing -->though ABRIL -->bandemia downtrending -->of note, 5/7 BAL NGTD Contraction alkalosis resolved w/ diamox, resume lasix Continue potassium supplementation Hydrocort (for severe CAP) to po -->minimizing iv meds Seroquel very helpful -->risperdal or zyprexa dissolve tabs if extubate Increase enteral free H2O helping sodium Updated family at bedside Overall, improving -->anticipate successful extubation soon.. maybe today -->statistically extubate by Thursday but think will edge that out Critical care time spent reviewing labs/films, examining patient, collaborating with other physicians but excluding procedures for life threatening organ failure is 33 minutes. [facility] Respiratory Care Department Progress Note Spontaneous Awakening Trial Safety Screen Spontaneous Awakening Trial (SAT - RN) : Current RASS greater than +2 (increased need of sedation) (12/30/24499) Wean Screen SpO2>/=88%: Yes (01/01/25232) FiO2</=50%: No (01/01/25232) PEEP </=8cmH2O: Yes (01/01/25232) HR <140 BPM: Yes (01/01/25232) RR </= 35 breaths/min: Yes (01/01/25232) MAP >/= 65mmHg: Yes (01/01/25232) Arterial pH >7.30: Yes (01/01/25232) Safety Screen Spontaneous Breathing Trial (SBT - RT) : FiO2 is greater than 50% (01/01/25232) Spontaneous Breathing Trial Weaning Start Time: 075 (12/28/24829) Weaning Tidal Volume: 470 mL (12/28/24829) Weaning Respiratory Rate: 17 (12/28/24829) Spontaneous Minute Volume (MV): 10.1 (12/28/24829) Total RSBI: 36 (12/28/24829) Weaning Tolerance: Good (12/28/24829) Weaning Stop Time: 08 (12/28/24829) Weaning Duration (min): 30 (12/28/24829) Spontaneous Breathing Trial (SBT - RT) Outcome: SBT Passed (12/28/24829) Vent Settings Vent Mode: Assist control (01/01/25) Mandatory Type: Pressure Control (01/01/25) Resp Rate (Set): 12 (12/31/241534) Vt (Set, mL): 360 mL (12/26/241624) IP Set (cm H2O): 12 cm H2O (12/31/241534) FiO2 (%): 50 % (01/01/25) PEEP/CPAP (cm H2O): 8 cm H20 (12/31/241534) Inspiratory Time (sec): 0.9 sec (05/10/25 1535) Vitals MAP (mmHg): 114 (12/30/24 1245) Heart Rate: 51 (01/01/25 0000) Resp: 22 (01/01/25 0000) SpO2: 93 % (01/01/25 0000) Suctioning/Secretions Secretion Amount: Small (12/31/24 1535) Secretion Color: White, Yellow (12/31/24 1535) Secretion Consistency: Thick (12/31/24 153) ABG results Recent Labs 12/31/24 1020 12/31/24 1624 01/01/25 0012 PHART 7.484* 7.464* 7.446 [id number] 45.3* 41.5 33.0* PO2ART 92.0 80.1 72.0* [id number] 33.3* 29.1* 22.2 [id number] Ventilator Ventilator Ventilator Does this patient meet criteria for termination of mechanical ventilation No - Failed SBT Name of physician notified via secure chat or in person : na (NA if patient did not meet criteria) Comments: Respiratory rate in the upper 30s despite going up on pressure support Thank you for involving Respiratory in the care of this patient, ICU Progress Note Name: Chelsea Cole : 1990(34 y.o.) Date: 12/31/24 Team: MICU Attending: Spencer Ellis Subjective: Hospital Summary: 34 yo M presented as tx from [place] in vfib cardiac arrest. Received 12 minutes of CPR and intubated prior to tx. Initially admitted under CCU and tx to MICU as patient also with severe PNA, ARDS. Proned 12/25-12/27, stabilized, and extubated 12/28. Unfortunately re-intubated same day d/t severe delirium (though neurologically intact.. following all commands, verbal, etc) and worsened noncardiogenic edema from ARDS. Interval Events: Aggressive potassium supplementation to get K to 3.2 -->supplementation continues Diuresis per FACCT Seroquel helpful w/ restlessness and agitation Scheduled Meds :acetaminophen, 1,000 mg, IntraVENous, q8h acetaZOLAMIDE (Diamox) 500 mg in sterile water (PF) 5 mL injection, 500 mg, IntraVENous, q12h chlorhexidine, , Topical, Daily folic acid, 1 mg, Per NG/OG Tube, Daily furosemide, 40 mg, IntraVENous, Once heparin, 5,000 Units, SubCUTAneous, 2 times per day Hydrocortisone Sod Suc (PF), 100 mg, IntraVENous, q8h insulin NPH, 5 Units, SubCUTAneous, q12h insulin regular, 0-12 Units, SubCUTAneous, q6h Lidocaine, 1 patch, TransDERmal, Daily pantoprazole, 40 mg, Oral, Nightly Or pantoprazole (ProtoNix) 40 mg in sodium chloride (PF) 0.9 % 10 mL injection, 40 mg, IntraVENous, Nightly piperacillin-tazobactam, 4,500 mg, IntraVENous, q6h potassium chloride, 40 mEq, Oral, BID potassium chloride, 80 mEq, Oral, Once QUEtiapine, 100 mg, Per NG/OG Tube, Nightly QUEtiapine, 50 mg, Per NG/OG Tube, q AM sodium chloride 0.9%, 5-40 mL, IntraCATHeter, q8h thiamine, 100 mg, Oral, Daily Continuous Infusions:dexmedeTOMIDine, 0.1-1.5 mcg/kg/hr, Last Rate: 0.2 mcg/kg/hr (12/31/24 0630) fentaNYL, 25-200 mcg/hr, Last Rate: 200 mcg/hr (12/31/24 0432) propofol, 5-50 mcg/kg/min, Last Rate: 50 mcg/kg/min (12/31/24 0211) Objective: Last Vitals: BP MAP 148/99 (12/30/24 1245) 114 (12/30/24 1245) Arterial BP MAP 162/87 (12/31/24 07) 111 mmHg (12/31/24699) Temp 37.3 C (99.1 F) (12/31/24699) Pulse 59 (12/31/24699) Resp 21 (12/31/24699) SpO2 93 % (12/31/24699) Weight 78.4 kg (172 lb 13.5 oz) (12/31/24 0500) BMI Body mass index is 27.9 kg/m . I/O: 12/30 07 - 12/31 0559 In: 4591 [I.V.:2795] Out: 4825 [Urine:4825] Ventilator: Resp Rate (Set): 12 Vt (Set, mL): 360 mL IP Set (cm H2O): 12 cm H2O FiO2 (%): 60 % PEEP/CPAP (cm H2O): 8 cm H20 Inspiratory Time (sec): 0.9 sec Oxygen Delivery: O2 Flow Rate (L/min): 60 L/min Invasive Lines / Tubes / Drains: Peripheral IV 12/24/24 Left Antecubital (Active) Number of days: 7 Peripheral IV 12/27/24 Anterior;Distal;Right;Upper Arm (Active) Number of days: 3 Peripheral IV 12/27/24 Anterior;Proximal;Right Forearm (Active) Number of days: 3 Peripheral IV 12/28/24 Anterior;Left Forearm (Active) Number of days: 2 NG/OG Tube Orogastric Center mouth (Active) Number of days: 2 Urethral Catheter Temperature probe (Active) Number of days: 7 ETT 7.5 mm (Active) Number of days: 2 Arterial Line 12/24/24 Right Radial (Active) Number of days: 6 Central Line Indication: Vesicant infusions/medications at high risk of causing extravasation Alfaro Indications: Hourly I&Os (Critical Care ONLY) Restraints: Restraints Non-Violent Or Non-Self Destructive December 28, 2024 5:35 Pm Edt Restraint order already placed. Order is valid for duration of episode. Wounds: Constitutional: General Appearance [x]WDWN []Obese []Cachectic []Thin []Ill Eyes: Inspection of Pupils/Irises Pupils round and react: [x]Yes []No Sclera: []Icteric [x]Non-Icteric Inspection of Conjunctiva/Lids Conjunctiva: []Injected [x]Non-Injected Lids: []Intact []Lesion Present ENT/Mouth: External Inspection of ears/nose [x] Normal [] Scar/Lesion/Mass Inspection of teeth/lips/gums Dentition: [x][place] Teeth []Dentures Lips/Gums: []Intact []Lesion Present Mucosa: [][place] [x]Moist []Dry Neck: External Appearance Overall Appearance: [x]Normal []Lesion/Mass/Crepitus Present Trachea midline: [x]Yes []No Thyroid [x]Normal []Enlarged []Tender []Mass []Absent Respiratory: Respiratory effort []Labored [x]Non-Labored [] Mechanically-Ventilated Auscultation []Clear [x]Crackles []Wheezes []Rhonchi Cardiovascular: Auscultation Rate: [x]Regular []Irregular []Tachycardia []Bradycardia Rhythm: [x]Regular []Irregular Murmur: []Present []Absent Extremities Peripheral Edema: []Present [x]Absent Varicosities: []Present []Absent Gastrointestinal: Abdomen Palpation: [x]Soft []Firm []Tender [x]Non-Tender []Distended [x]Non-distended Mass: []Present []Absent Bowel Sounds: []Present []Absent Hernia: []Present []Absent Liver/Spleen: []Hepatosplenomegaly []Organomegaly Absent Musculoskeletal: Inspection of Digits and Nails Cyanosis: []Present [x]Absent Clubbing: []Present []Absent Ischemia: []Present []Absent Infection: []Present []Absent Extremities MILLS Equally: Except ([]RUE []RLE []LUE []LLE) Strength/Tone: Intact and Normal ([x]RUE [x]RLE [x]LUE [x]LLE) Skin: Inspection [x]Normal []Rash []Lesion []Ulcer Palpation [x]Warm []Cool []Dry []Clammy []Nodules []Induration []Skin-tightening Cap-Refill: [x] <3 sec [] >3 seconds (delayed) Neurologic: GCS EYE: 4 - Opens spontaneously GCS MOTOR: 4 - Withdraws from pain GCS VERBAL: 1 - No response Total GCS: 9T (on sedation) [x] Sensation grossly intact Psych: Mental Status Alert: []Yes [x] No Oriented: [x]x0 []X1 []X2 []x3 Mood/Affect []Normal []Flat []Agitated []Depressed []Anxious []Calm [x]Sedated [x]NAD Select Labs within last 24 hours- BMP: Recent Labs 12/30/24 04312/30/24 0828 12/30/24 16112/30/24235412/31/24 0342 NA 153* 153* 154* 154* -- K 3.0* 2.8* 3.0* 3.2* -- CL 109* 109* 109* 110* -- CO2 33* 34* 32* 30* -- BUN 27* 27* 31* 31* -- CREATININE 1.09 1.05 1.11 1.07 -- CALCIUM 8.8 8.7 9.3 9.2 -- MG 2.4 2.5 -- -- 2.3 PHOS 1.6* 1.6* -- -- 2.8 LFTs: Recent Labs 12/29/2440012/30/2443712/31/24341 AST 193* 119* 80* ALT 145* 118* 106* PROT 6.1* 6.7 6.8 ALBUMIN 2.5* 2.5* 2.6* BILITOT 0.4 0.5 0.6 ALKPHOS 59 72 78 Glucose: Recent Labs 12/28/24 0845 12/28/24 1435 12/28/24 1438 12/28/24200912/28/24 21012/29/24 0028 12/29/24 1123 12/29/24 1552 12/29/24203712/30/24 0006 12/30/24 0438 12/30/2428 12/30/24 1005 12/30/24 1608 12/30/24 16112/30/24212412/30/24235412/31/24 0323 GLUCOSE -- < > -- < > -- < > 96 111* 72* 109* 154* 132* -- -- 214* -- 184* -- POCGLU 199* -- 138* -- 110* -- -- -- -- -- -- -- 186* 218* -- 164* -- 200* < > = values in this interval not displayed. Procal: Recent Labs 12/31/24341 PROCAL 0.95* CBC: Recent Labs 12/29/24 04012/29/24 0829 12/30/24 04312/30/24 0829 12/30/24 16112/30/24235412/31/24 0342 WBC 13.9* -- 13.8* -- -- -- 13.8* HGB 9.4 8.8* < > 10.5 9.4* < > 10.2 10.8 9.8* HCT 25.7* -- 27.3* -- -- -- 29.1* PLT 142 -- 168 -- -- -- 193 MCV 89.2 -- 90.4 -- -- -- 91.2 RDW 14.2 -- 14.6 -- -- -- 14.7 < > = values in this interval not displayed. ABGs: Recent Labs 12/30/24 0812/30/24161412/30/242354 PHART 7.524* 7.559* 7.533* [id number] 45.5* 40.3 43.4 PO2ART 89.6 56.3* 66.5* [id number] 36.7* 35.2* 35.7* [id number] Ventilator Ventilator Ventilator Lactic Acid: No results for input(s): "LACTATE" in the last 72 hours. INR: No results for input(s): "INR" in the last 72 hours. Cardiac Injury Profile: No results for input(s): "CKTOTAL", "CKMB", "TROPONINI" in the last 72 hours. Labs in Last 3 months: Lab Results Component Value Date TSH 1.89 12/24/2024 INR 1.2 (H) 12/24/2024 Microbiology- Urine Cx: Lab Results Component Value Date URINECX No growth (<1,000 CFU/mL) 12/25/2024 Blood Cx: Lab Results Component Value Date BLOODCX No growth at 5 days 12/25/2024 BLOODCX No growth at 5 days 12/25/2024 Sputum Cx: Lab Results Component Value Date RESPCULT No growth of normal respiratory samuel. 12/28/2024 Gram Stain: Lab Results Component Value Date LABGRAM 12/28/2024 Many Polymorphonuclear leukocytes per low power field LABGRAM No epithelial cells seen 12/28/2024 LABGRAM No organisms seen 12/28/2024 PNA PCR: Lab Results Component Value Date HUMANMETAPNE Not Detected 12/24/2024 HUMANMETAPNE Not Detected 12/24/2024 COVID19: No results found for: COVID19 Legionella Ag: Lab Results Component Value Date LEGIONELLAPN Not Detected 12/24/2024 Strep Ag: No results for input(s): "STREPPNEUMO" in the last 72 hours. Imaging- Devices OK, ARDS decreased though still mod-severe Assessment and Plan: Acute hypoxic respiratory failure ARDS d/t severe CAP (S pneumo, H flu) Septic shock (resolved) VFA (w/ neurologic recovery) Methadone abuse, mild alcohol withdrawal ICU delirium Hypernatremia ABRIL (including rhabdo) Transaminitis (resolving) Electrolyte dyscrasias Some forward progress w/ P/F: 93--> 111 -->extubation possible at >150, probable at >200 Rotate zosyn to ceftriax ?resist hflu? No cx results/ suscep yet... -->don't need PSA coverage -->Procal still bit elevated but decreasing -->though ABRIL -->monitor bandemia -->of note, 5/7 BAL NGTD Contraction alkalosis -->however needs ongoing diuresis -->sub diamox for lasix Continue potassium supplementation w/ Hydrocort (for severe CAP) to po -->minimizing iv meds Increase at bedtime seroquel -->qtc OK Increase enteral free H2O Repeat CK Check TG Updated family at bedside Overall, improving -->anticipate successful extubation soon -->statistically extubate by Thursday but think will edge that out Critical care time spent reviewing labs/films, examining patient, collaborating with other physicians but excluding procedures for life threatening organ failure is 33 minutes. [facility] Respiratory Care Department Progress Note Spontaneous Awakening Trial Safety Screen Spontaneous Awakening Trial (SAT - RN) : Current RASS greater than +2 (increased need of sedation) (12/30/24 0500) Wean Screen SpO2>/=88%: Yes (12/31/24330) FiO2</=50%: No (12/31/24330) PEEP </=8cmH2O: Yes (12/31/24330) HR <140 BPM: Yes (12/31/24330) RR </= 35 breaths/min: Yes (12/31/24330) MAP >/= 65mmHg: Yes (12/31/24330) Arterial pH >7.30: Yes (12/31/24330) Safety Screen Spontaneous Breathing Trial (SBT - RT) : FiO2 is greater than 50% (12/31/24330) Spontaneous Breathing Trial Weaning Start Time: 758 (12/28/24829) Weaning Tidal Volume: 470 mL (12/28/24829) Weaning Respiratory Rate: 17 (12/28/24829) Spontaneous Minute Volume (MV): 10.1 (12/28/24829) Total RSBI: 36 (12/28/24829) Weaning Tolerance: Good (12/28/24829) Weaning Stop Time: 829 (12/28/24829) Weaning Duration (min): 30 (12/28/24829) Spontaneous Breathing Trial (SBT - RT) Outcome: SBT Passed (12/28/24829) Vent Settings Vent Mode: Assist control (12/30/242299) Mandatory Type: Pressure Control (12/30/242299) Resp Rate (Set): 12 (12/30/241547) Vt (Set, mL): 360 mL (12/26/24 1625) IP Set (cm H2O): 12 cm H2O (12/30/241547) FiO2 (%): 60 % (12/30/242299) PEEP/CPAP (cm H2O): 8 cm H20 (12/30/241547) Inspiratory Time (sec): 0.9 sec (12/30/241547) Vitals MAP (mmHg): 114 (12/30/24 1245) Heart Rate: 68 (12/30/242299) Resp: 22 (12/30/242299) SpO2: (!) 89 % (12/30/242299) Suctioning/Secretions Secretion Amount: Scant (12/30/24 154) Secretion Color: Unable to assess (12/30/24 1122) Secretion Consistency: Thick (12/30/24 0246) ABG results Recent Labs 12/30/24 0829 12/30/24 1615 12/30/24 2355 PHART 7.524* 7.559* 7.533* [id number] 45.5* 40.3 43.4 PO2ART 89.6 56.3* 66.5* [id number] 36.7* 35.2* 35.7* [id number] Ventilator Ventilator Ventilator Does this patient meet criteria for termination of mechanical ventilation No - Failed Wean Screen Name of physician notified via secure chat or in person : na (NA if patient did not meet criteria) Comments: FIO2 60%. Thank you for involving Respiratory in the care of this patient, Spiritual Care Note [facility] Palliative Care Patient Name:Chelsea Cole Chief Complaint: No chief complaint on file. Reason for visit: Follow Up Services Provided To:patient Background and visit note: Follow up visit of prayer. Patient opened his eyes when I called his name but is still intubated. Prayed a prayer of comfort. Will follow up. Is there spiritual distress? NO Comment: Interventions: Prayer and spiritual support provided. Care Plan: build trust. Follow Up: PRN and when patient is able. 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 Cori Gandhi 12/30/24 Images from the original note were not included. OCCUPATIONAL THERAPY [facility] Name/MRN: Buddytj Cole ([id number]) Date: 12/30/2024 OT eval orders received. Per nursing, pt continues to be inappropriate for therapy and is heavily sedated. Will sign off at this time, please re-consult OT when pt status changes and is appropriate for therapy. Mamie Ocampo OTR/L ICU Progress Note Name: Chelsea Cole : 1990(34 y.o.) Date: 12/30/24 Team: MICU Attending: Spencer Ellis Subjective: Hospital Summary: 34 yo M presented as tx from [place] in vfib cardiac arrest. Received 12 minutes of CPR and intubated prior to tx. Initially admitted under CCU and tx to MICU as patient also with severe PNA, ARDS. Proned 12/25-12/27, stabilized, and extubated 12/28. Unfortunately re-intubated same day with ARDS and pulmonary edema. Interval Events: Able to be weaned to 50% and 10 of PEEP yesterday, but whenever he wakes up and moves, patient desaturates and derecruits. Received bolus of ketamine this morning. Increased sedation with fent 250, prop 50, dex 0.4 Reported that liquid methadone may have been on hands of someone who rolled a joint he smoked Scheduled Meds:acetaminophen, 1,000 mg, IntraVENous, q8h calcium gluconate, 2,000 mg, IntraVENous, Once chlorhexidine, , Topical, Daily folic acid, 1 mg, Per NG/OG Tube, Daily furosemide, 40 mg, IntraVENous, BID heparin, 5,000 Units, SubCUTAneous, 2 times per day Hydrocortisone Sod Suc (PF), 100 mg, IntraVENous, q8h insulin NPH, 5 Units, SubCUTAneous, q12h insulin regular, 0-12 Units, SubCUTAneous, q6h Lidocaine, 1 patch, TransDERmal, Daily pantoprazole, 40 mg, Oral, Nightly Or pantoprazole (ProtoNix) 40 mg in sodium chloride (PF) 0.9 % 10 mL injection, 40 mg, IntraVENous, Nightly phosphorus, 500 mg, Per NG/OG Tube, Once piperacillin-tazobactam, 4,500 mg, IntraVENous, q6h potassium chloride, 40 mEq, Oral, Once QUEtiapine, 25 mg, Oral, Nightly sodium chloride 0.9%, 5-40 mL, IntraCATHeter, q8h thiamine (Vitamin B1) 250 mg in sodium chloride 0.9 % 100 mL IVPB, 250 mg, IntraVENous, q24h Followed by [START ON 12/31/2024] thiamine, 100 mg, Oral, Daily Continuous Infusions:dexmedeTOMIDine, 0.1-1.5 mcg/kg/hr, Last Rate: 0.4 mcg/kg/hr (12/30/24439) fentaNYL, 25-200 mcg/hr, Last Rate: 50 mcg/hr (12/30/24448) propofol, 5-50 mcg/kg/min, Last Rate: 50 mcg/kg/min (12/30/24220) Objective: Last Vitals: BP MAP 147/88 (12/30/24499) 105 (12/30/24499) Arterial BP MAP 160/91 (12/30/24536) 113 mmHg (12/30/24536) Temp 37.6 C (99.7 F) (12/30/24536) Pulse 72 (12/30/24536) Resp 17 (12/30/24536) SpO2 91 % (12/30/24536) Weight 80.7 kg (177 lb 14.6 oz) (12/30/24614) BMI Body mass index is 28.72 kg/m . I/O: 12/29 699 - 12/30 658 In: 2742 [I.V.:1909] Out: 3850 [Urine:3850] Ventilator: Resp Rate (Set): 12 Vt (Set, mL): 360 mL IP Set (cm H2O): 15 cm H2O FiO2 (%): 60 % PEEP/CPAP (cm H2O): 10 cm H20 Inspiratory Time (sec): 0.9 sec Oxygen Delivery: O2 Flow Rate (L/min): 60 L/min Invasive Lines / Tubes / Drains: Peripheral IV 12/24/24 Left Antecubital (Active) Number of days: 6 Peripheral IV 12/27/24 Anterior;Distal;Right;Upper Arm (Active) Number of days: 2 Peripheral IV 12/27/24 Anterior;Proximal;Right Forearm (Active) Number of days: 2 Peripheral IV 12/28/24 Anterior;Left Forearm (Active) Number of days: 1 NG/OG Tube Orogastric Center mouth (Active) Number of days: 1 Urethral Catheter Temperature probe (Active) Number of days: 6 ETT 7.5 mm (Active) Number of days: 1 Arterial Line 12/24/24 Right Radial (Active) Number of days: 5 Central Line Indication: NA - patient does not have a central line Alfaro Indications: Hourly I&Os (Critical Care ONLY) Restraints: Restraints Non-Violent Or Non-Self Destructive December 28, 2024 5:35 Pm Edt Restraint order already placed. Order is valid for duration of episode. Wounds: Constitutional: General Appearance [x]WDWN []Obese []Cachectic []Thin [x]Ill Eyes: Inspection of Pupils/Irises Pupils round and react: []Yes [x]No Sclera: []Icteric [x]Non-Icteric Inspection of Conjunctiva/Lids Conjunctiva: [x]Injected []Non-Injected Lids: [x]Intact []Lesion Present ENT/Mouth: External Inspection of ears/nose [x] Normal [] Scar/Lesion/Mass Inspection of teeth/lips/gums Dentition: [x][place] Teeth []Dentures Lips/Gums: [x]Intact []Lesion Present Mucosa: [x][place] [x]Moist []Dry Neck: External Appearance Overall Appearance: [x]Normal []Lesion/Mass/Crepitus Present Trachea midline: [x]Yes []No Thyroid [x]Normal []Enlarged []Tender []Mass []Absent Respiratory: Respiratory effort []Labored [x]Non-Labored [x] Mechanically-Ventilated Auscultation []Clear [x]Crackles []Wheezes []Rhonchi Cardiovascular: Auscultation Rate: [x]Regular []Irregular []Tachycardia []Bradycardia Rhythm: []Regular []Irregular Murmur: []Present []Absent Extremities Peripheral Edema: []Present [x]Absent Varicosities: []Present [x]Absent Gastrointestinal: Abdomen Palpation: [x]Soft []Firm []Tender []Non-Tender []Distended [x]Non-distended Mass: []Present [x]Absent Bowel Sounds: []Present []Absent Hernia: []Present [x]Absent Liver/Spleen: []Hepatosplenomegaly [x]Organomegaly Absent Musculoskeletal: Inspection of Digits and Nails Cyanosis: []Present [x]Absent Clubbing: []Present [x]Absent Ischemia: []Present [x]Absent Infection: []Present [x]Absent Extremities MILLS Equally: Except ([]RUE []RLE []LUE []LLE) Strength/Tone: Intact and Normal ([]RUE []RLE []LUE []LLE) Skin: Inspection [x]Normal []Rash []Lesion []Ulcer Palpation [x]Warm []Cool [x]Dry []Clammy []Nodules []Induration []Skin-tightening Cap-Refill: [x] <3 sec [] >3 seconds (delayed) Neurologic: GCS EYE: 2 - Opens to pain GCS MOTOR: 4 - Withdraws from pain GCS VERBAL: 1 - No response Total GCS: 7 [x] Sensation grossly intact Psych: Mental Status Alert: []Yes [x] No Oriented: []x0 []X1 []X2 []x3 Mood/Affect []Normal []Flat []Agitated []Depressed []Anxious []Calm [x]Sedated []NAD Select Labs within last 24 hours- BMP: Recent Labs 12/29/24203712/30/24512/30/24 0438 NA 158* 154* 153* K 3.4* 3.3* 3.0* CL 109* 110* 109* CO2 36* 33* 33* BUN 24* 25* 27* CREATININE 1.37* 1.16 1.09 CALCIUM 9.3 8.7 8.8 MG 2.4 2.3 2.4 PHOS 2.8 2.7 1.6* LFTs: Recent Labs 12/28/24612/29/2440012/30/24 0438 AST 198* 193* 119* ALT 156* 145* 118* PROT 5.8* 6.1* 6.7 ALBUMIN 2.4* 2.5* 2.5* BILITOT 0.4 0.4 0.5 ALKPHOS 44 59 72 Glucose: Recent Labs 12/27/24 0943 12/27/24 1500 12/27/24 2111 12/28/24 0007 12/28/24 0242 12/28/24 0845 12/28/24 1435 12/28/24 1438 12/28/24200912/28/24 21012/29/24 0028 12/29/24 0401 12/29/24 0829 12/29/24 1123 12/29/24 1552 12/29/24203712/30/24 0006 12/30/24 0438 GLUCOSE -- -- -- < > -- -- < > -- < > -- 101* 97 98 96 111* 72* 109* 154* POCGLU 143* 162* 135* -- 175* 199* -- 138* -- 110* -- -- -- -- -- -- -- -- < > = values in this interval not displayed. Procal: No results for input(s): "PROCAL" in the last 72 hours. CBC: Recent Labs 12/28/24612/28/245 12/29/24 0401 12/29/24 0829 12/30/24 0006 12/30/24 0438 WBC 13.5* -- 13.9* -- -- 13.8* HGB 9.3* < > 9.4 8.8* < > 13.3 10.5 9.4* HCT 26.9* -- 25.7* -- -- 27.3* PLT 146 -- 142 -- -- 168 MCV 87.3 -- 89.2 -- -- 90.4 RDW 13.3 -- 14.2 -- -- 14.6 < > = values in this interval not displayed. ABGs: Recent Labs 12/29/24203712/30/24 0006 12/30/24437 PHART 7.499* 7.465* 7.543* [id number] 53.1* 54.4* 43.2 PO2ART 74.3* 70.5* 58.5* [id number] 40.4* 38.3* 36.4* [id number] Ventilator Ventilator Ventilator Lactic Acid: No results for input(s): "LACTATE" in the last 72 hours. INR: No results for input(s): "INR" in the last 72 hours. Cardiac Injury Profile: Recent Labs 12/28/246 CKTOTAL 4,747* Labs in Last 3 months: Lab Results Component Value Date TSH 1.89 12/24/2024 INR 1.2 (H) 12/24/2024 Microbiology- Urine Cx: Lab Results Component Value Date URINECX No growth (<1,000 CFU/mL) 12/25/2024 Blood Cx: Lab Results Component Value Date BLOODCX No growth at 5 days 12/25/2024 BLOODCX No growth at 5 days 12/25/2024 Sputum Cx: Lab Results Component Value Date RESPCULT Culture in progress 12/28/2024 Gram Stain: Lab Results Component Value Date LABGRAM 12/28/2024 Many Polymorphonuclear leukocytes per low power field LABGRAM No epithelial cells seen 12/28/2024 LABGRAM No organisms seen 12/28/2024 PNA PCR: Lab Results Component Value Date HUMANMETAPNE Not Detected 12/24/2024 HUMANMETAPNE Not Detected 12/24/2024 COVID19: No results found for: COVID19 Legionella Ag: Lab Results Component Value Date LEGIONELLAPN Not Detected 12/24/2024 Strep Ag: No results for input(s): "STREPPNEUMO" in the last 72 hours. Imaging- no significant change from prior studies Assessment and Plan: Principal Problem: Cardiac arrest (HCC) Assessment: Acute hypoxic respiratory failure requiring intubation 2/2 ARDS, Bilateral strep pneumo, H. Flu CAP, pulmonary edema Septic shock, resolved V fib arrest Potential methadone and alcohol withdrawal Tobacco abuse Delirium Hypernatremia ABRIL Rhabdomyolysis, resolved Transaminitis, improving Hyperglycemia Hypokalemia Hypophosphatemia Hypocalcemia Plan: Continue mechanical ventilation. Wean per ARDSnet for goal sats 88-95% Continue Zosyn. EOT 01/02 Continue hydrocortisone until ICU discharge Lasix BID. Scheduled potassium Replete electrolytes as needed Increase seroquel to 25 mg BID. Check Qtc this afternoon and consider increased dose at night Wean precedex, propofol, fentanyl as tolerated Haldol PRN TF at goal. NPH and SSI Folate and thiamine supplementation Follow cx, methadone GI Prophylaxis: Pantoprazole IV DVT Prophylaxis: Heparin subcutaneous Disposition: Remain in ICU Status Cosigned by Jamey Ellis MD at 12/30/2024 5:55 PM EDT Associated attestation - Jamey Ellis MD - 12/30/2024 5:55 PM EDT I have personally performed a [id number] diagnostic evaluation on this patient on date of service 12/30/24. History, labs, imaging studies, and electronic medical record have been reviewed by me. This note documented by the [x]greenhouse manager []JORGE reflects my history, exam, and medical decision making. I have reviewed and agree with the care plan. Changes were made in the orders as necessary. ROS documentation was reviewed and negative unless otherwise stated in HPI. Assessment: S/p VFA, on TTM Acute hypox resp fail d/t severe CAP, ARDS, shock ABRIL, rhabdo DM2 w/ hypergly Concern for mild ETOH +/- ?methadone w/d Likely ICU delirium Plan: Continue ARDSnet vent wean Augment KCl Augment diuresis Otw per resident note Critical care time spent reviewing labs/films, examining patient, collaborating with other physicians but excluding procedures for life threatening organ failure is 35 minutes. [facility] Respiratory Care Department Progress Note Spontaneous Awakening Trial Safety Screen Spontaneous Awakening Trial (SAT - RN) : Current RASS greater than +2 (increased need of sedation) (12/30/24 0500) Wean Screen SpO2>/=88%: Yes (12/30/24245) FiO2</=50%: No (12/30/24245) PEEP </=8cmH2O: No (12/30/24245) HR <140 BPM: Yes (12/30/24245) RR </= 35 breaths/min: Yes (12/30/24245) MAP >/= 65mmHg: Yes (12/30/24245) Arterial pH >7.30: Yes (12/30/24245) Safety Screen Spontaneous Breathing Trial (SBT - RT) : FiO2 is greater than 50% (12/30/24245) Spontaneous Breathing Trial Weaning Start Time: 0759 (12/28/24829) Weaning Tidal Volume: 470 mL (12/28/24829) Weaning Respiratory Rate: 17 (12/28/24829) Spontaneous Minute Volume (MV): 10.1 (12/28/24829) Total RSBI: 36 (12/28/24829) Weaning Tolerance: Good (12/28/24829) Weaning Stop Time: 829 (12/28/24829) Weaning Duration (min): 30 (12/28/24829) Spontaneous Breathing Trial (SBT - RT) Outcome: SBT Passed (12/28/24829) Vent Settings Vent Mode: Assist control (12/30/24537) Mandatory Type: Pressure Control (12/30/24537) Resp Rate (Set): 12 (12/30/24245) Vt (Set, mL): 360 mL (12/26/241624) IP Set (cm H2O): 15 cm H2O (12/30/24245) FiO2 (%): 60 % (12/30/24537) PEEP/CPAP (cm H2O): 10 cm H20 (12/30/24245) Inspiratory Time (sec): 0.9 sec (12/30/24245) Vitals MAP (mmHg): 105 (12/30/24 0500) Heart Rate: 72 (12/30/24536) Resp: 17 (12/30/24536) SpO2: 91 % (12/30/24536) Suctioning/Secretions Secretion Amount: Scant (12/30/24245) Secretion Color: [place] tinged (12/30/24245) Secretion Consistency: Thick (12/30/24245) ABG results Recent Labs 12/29/24203712/30/24 0006 12/30/24 0438 PHART 7.499* 7.465* 7.543* [id number] 53.1* 54.4* 43.2 PO2ART 74.3* 70.5* 58.5* [id number] 40.4* 38.3* 36.4* [id number] Ventilator Ventilator Ventilator Does this patient meet criteria for termination of mechanical ventilation No - Failed Wean Screen Name of physician notified via secure chat or in person : (NA if patient did not meet criteria) Comments: Thank you for involving Respiratory in the care of this patient, Nutrition Assessment Type and Reason for Visit: Reassess Nutrition Recommendations/Plan: Pt was extubated yesterday, however required re-intubation yesterday evening. Pt is currently sedated with fentanyl and propofol observed @ 14.9mls/hr = 393 lipid kcals. EN was resumed today- Vital HP @ 20mls/hr so far at time of RD assessment. --> current order once goal rate is achieved: Vital HP @ goal rate of 50mls/hr will provide 1200kcals + 393 lipid kcals via propofol (@14.9mls/hr), 105gm protein, 1003mL free fluid (25kcals/kg, 1.6gm/kg IBW) --> if propofol is discontinued, recommend modification in EN regimen to Vital 1.5 @ goal rate of 50mls/hr to provide 1800kcals, 81gm protein, 917mL free fluid (28kcals/kg, 1.3gm/kg IBW). 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, currently re-intubated yesterday, sedated with fent and prop @ 14.9mls/hr, NPO 12/24, Vital 1.5 @ goal rate of 20mls/hr 12/26, changed to Vital HP @ 50mls/hr 12/27, NPO 12/28, today EN resumed and Vital HP @ 20mls/hr so far) Weight Loss: Unable to assess (CBW 181# bedscale on 12/29, was 153# bedscale on 12/24 presentation, there is no recent weights in chart to assess, pt appears to be closer to ~153# not ~181#, will monitor trends) Body Fat Loss: (deferred, unknown pt baseline) Muscle Mass Loss: (deferred, unknown pt baseline) Fluid Accumulation: Mild (generalized, BLE and facial non-pitting, BUE mild) Procurement Clerk Strength: Not Performed Nutrition Assessment: pt with previously reviewed PMH significant for alcohol, tobacco and cocaine use who presented directly to [facility] from [facility] as an out of hospital arrest, pt was in VFib and defibrillated at 120 J into asystole, CPR x 12 minutes, 2 rounds or epinephrine with return of spontaneous circulation, pt was subsequently intubated, family members reported that pt was drinking alcohol and smoking marijuana the evening before, pt was noted to have vomit on his shirt and was not waking up so EMS was called, family also stated that he had complained of palpitations and chest pain the day prior, pt transferred to [facility] for further management, pt found to have bilateral pneumonia, strep pneumonia & haemophilus, due to ARDS pt was paralyzed/proned 12/25-12/27, Cardiology/EP following- noted 12/25 echo with EF 45% mild global hypokinesis, noted will likely need an ischemic eval once clinically improved, EP also consulted to determine need for ICD- plans to await neurologic recovery and clearance from infection, NCC was following- yesterday MRI brain cancelled as not needed due to improvement in neurological exam and NCC signed off 12/28, pt was successfully extubated yesterday morning however re-intubated yesterday evening for airway protection and respiratory failure, bronch completed following re-intubation which showed diffiusely irritated airways with CHARMAINE significantly worse that right side, pink, thin frotty secretions diffusely, Palliative Care remains following- Full Code remains in place at this time, wound care following- today pressure points assessed and all noted to be intact. At time of assessment today pt remains intubated/sedated (fentanyl and propofol observed @ 14.9mls/hr = 393 lipid kcals), in terms of nutrition throughout admit NPO 12/24, Vital 1.5 @ goal rate of 20mls/hr 12/26, changed to Vital HP @ 50mls/hr 12/27, NPO 12/28, today EN resumed and Vital HP @ 20mls/hr so far, pt CBW 181# bedscale on 12/29, was 153# bedscale on 12/24 presentation, there is no recent weights in chart to assess, will continue to monitor tolerance of EN as advanced back to goal and remainder of clinical course. Nutrition Related Findings: Orientation Level: Unable to Assess, Cognition: Poor judgement, Poor safety awareness, Poor attention/concentration, Impulsive, Unable to follow commands, Best Verbal Response: None, Patient Behaviors/Mood: Unable to assess Teeth: Intact Steve Scale Score: 10. Wound Type: None Net IO Since Admission: 7,207 mL [12/29/24 1350] Gastrointestinal (WDL): Exceptions to WDL (OG) Bowel Sounds (All Quadrants): Active Abdomen Inspection: Soft Last BM Date: 12/29/24, Stool Appearance: Watery, Stool Color: Brown Edema: Generalized Edema: Non-pitting, RUE Edema: Mild, LUE Edema: Mild, RLE Edema: Non-pitting, LLE Edema: Non-pitting Oxygen Therapy: Supplemental oxygen, O2 Delivery Method: Ventilator Labs and meds reviewed: Scheduled: acetaminophen, 1,000 mg, IntraVENous, q8h chlorhexidine, , Topical, Daily folic acid, 1 mg, Per NG/OG Tube, Daily furosemide, 40 mg, IntraVENous, BID heparin, 5,000 Units, SubCUTAneous, 2 times per day Hydrocortisone Sod Suc (PF), 100 mg, IntraVENous, q8h insulin NPH, 5 Units, SubCUTAneous, q12h insulin regular, 0-12 Units, SubCUTAneous, q6h Lidocaine, 1 patch, TransDERmal, Daily pantoprazole, 40 mg, Oral, Nightly Or pantoprazole (ProtoNix) 40 mg in sodium chloride (PF) 0.9 % 10 mL injection, 40 mg, IntraVENous, Nightly piperacillin-tazobactam, 4,500 mg, IntraVENous, q6h [Held by provider] potassium chloride, 40 mEq, Oral, TID sodium chloride 0.9%, 5-40 mL, IntraCATHeter, q8h thiamine (Vitamin B1) 250 mg in sodium chloride 0.9 % 100 mL IVPB, 250 mg, IntraVENous, q24h Followed by [START ON 12/31/2024] thiamine, 100 mg, Oral, Daily Continuous: fentaNYL, 25-200 mcg/hr, Last Rate: 125 mcg/hr (12/29/24 1253) propofol, 5-50 mcg/kg/min, Last Rate: 50 mcg/kg/min (12/29/24 1340) Current Nutrition Therapies: Diet, tube feeding no tray Orogastric; Vital High Protein; Continuous; Yes; 20; Q 6 Hours; 20; 50 Current Oral Intake Average Meal Intake: NPO Average Supplements Intake: NPO Additional Calorie Sources Additional Calorie Sources: Propofol at 20.9 ml/hr = 552 kcal/day Enteral Nutrition Feeding Route: Orogastric EN Formula: Vital High Protein EN Schedule: Continuous EN Feeding Regimen: 50mls/hr goal rate Additives/Modulars: None Water Flushes: 50mL q4 hours per order Current EN & Flush Order Provides: Vital HP @ 20mlshr so far, resumed today s/p re-intubation yesterday Goal EN & Flush Order Provides: Vital HP @ goal rate of 50mls/hr will provide 1200kcals + 393 lipid kcals via propofol (@14.9mls/hr), 105gm protein, 1003mL free fluid (25kcals/kg, 1.6gm/kg IBW) Anthropometric Measures: Height: 167.6 cm (5' 6") Current Body Weight: 82.1 kg (181 lb) (bedscale 5/8) Weight Source: Bed Scale Admission Body Weight: 69.4 kg (153 lb) (bedscale 5/3) Usual Body Weight: (no recent docuemnted weights) [place] Body Weight (lbs) (Calculated): 142 lbs [place] Body Weight (Kg) (Calculated): 65 kg % [place] Body Weight (Calculated): 127.5 % BMI (kg/m2) (Calculated): 29.2 Weight Adjustment For: No Adjustment BMI Categories: Overweight (BMI 25.0-29.9) Nutrition Interventions: Nutrition Education/Counseling: No recommendation at this time Coordination of Nutrition Care: Continue to monitor while inpatient Plan of Care discussed with: RN Goals: Previous Goal Met: Progressing toward Goal(s) Goals: Tolerate nutrition support at goal rate, by next RD assessment Nutrition Monitoring and Evaluation: Behavioral-Environmental Outcomes: None Identified Food/Nutrient Intake Outcomes: Enteral Nutrition Intake/Tolerance Physical Signs/Symptoms Outcomes: Biochemical Data, GI Status, Fluid Status or Edema, Weight, Skin, Nutrition Focused Physical Findings, Hemodynamic Status Discharge Planning: Too soon to determine Sherie Marte RD Contact: available via [employer] or *[id number] ICU Progress Note Name: Chelsea Cole : 1990(34 y.o.) Date: 12/29/24 Team: MICU Attending: Dr. Jamey Ellis Subjective: Hospital Summary: No significant PMH Admitted 12/24/2024 by CCU. Significant other woke up to find patient unresponsive, covered in vomit after prior night of drinking Upon EMS evaluation in cardiac arrest. In Vfib CPR x12 minutes, 2 rounds of Epi. ROSC obtained Tx from [place] to [facility] Found to have severe pneumonia,ARDS. Proned 12/25-12/27. CK elevated to 15,000, improving TTE showing EF 45% EP consulted, recommend ischemic evaluation when stabilized Successful extubation 12/28/2024, then subsequent reintubation Interval Events: Patient extubated yesterday morning and subsequently reintubated in the afternoon for persistent agitation, lack of enteral access for hypokalemia, and continued desaturations on HFNC. Bronchoscopy overnight showed pulmonary edema Bedside POCUS this morning showed small right sided pleural effusion and bilateral pulmonary edema Scheduled Meds:acetaminophen, 1,000 mg, IntraVENous, q8h chlorhexidine, , Topical, Daily folic acid, 1 mg, Per NG/OG Tube, Daily furosemide, 40 mg, IntraVENous, BID heparin, 5,000 Units, SubCUTAneous, 2 times per day Hydrocortisone Sod Suc (PF), 100 mg, IntraVENous, q8h insulin NPH, 5 Units, SubCUTAneous, q12h insulin regular, 0-12 Units, SubCUTAneous, q6h Lidocaine, 1 patch, TransDERmal, Daily pantoprazole, 40 mg, Oral, Nightly Or pantoprazole (ProtoNix) 40 mg in sodium chloride (PF) 0.9 % 10 mL injection, 40 mg, IntraVENous, Nightly piperacillin-tazobactam, 4,500 mg, IntraVENous, q6h [Held by provider] potassium chloride, 40 mEq, Oral, TID sodium chloride 0.9%, 5-40 mL, IntraCATHeter, q8h thiamine (Vitamin B1) 250 mg in sodium chloride 0.9 % 100 mL IVPB, 250 mg, IntraVENous, q24h Followed by [START ON 12/31/2024] thiamine, 100 mg, Oral, Daily Continuous Infusions:fentaNYL, 25-200 mcg/hr, Last Rate: 100 mcg/hr (12/29/24 1217) propofol, 5-50 mcg/kg/min, Last Rate: 30 mcg/kg/min (12/29/24 1252) Objective: Last Vitals: BP MAP 119/82 (12/28/24 2300) 92 (12/28/24 2300) Arterial BP MAP 159/95 (12/29/24 1200) 119 mmHg (12/29/24 1200) Temp 37.3 C (99.1 F) (12/29/24 1200) Pulse 52 (12/29/24 1200) Resp 12 (12/29/24 1200) SpO2 99 % (12/29/241199) Weight 82.3 kg (181 lb 7 oz) (12/29/24 05) BMI Body mass index is 29.28 kg/m . I/O: 12/28 699 - 12/29 658 In: 2358 [P.O.:113; I.V.:2145] Out: 4290 [Urine:4290] Ventilator: Resp Rate (Set): 12 Vt (Set, mL): 360 mL IP Set (cm H2O): 15 cm H2O FiO2 (%): 70 % PEEP/CPAP (cm H2O): 14 cm H20 Inspiratory Time (sec): 0.9 sec Oxygen Delivery: O2 Flow Rate (L/min): 60 L/min Invasive Lines / Tubes / Drains: Peripheral IV 12/24/24 Left Antecubital (Active) Number of days: 4 Peripheral IV 12/27/24 Anterior;Distal;Right;Upper Arm (Active) Number of days: 0 Peripheral IV 12/27/24 Anterior;Proximal;Right Forearm (Active) Number of days: 0 NG/OG Tube Orogastric Center mouth (Active) Number of days: 4 Urethral Catheter Temperature probe (Active) Number of days: 4 ETT 7.5 mm (Active) Number of days: 4 Arterial Line 12/24/24 Right Radial (Active) Number of days: 3 Constitutional: General Appearance []WDWN []Obese []Cachectic []Thin [x]Ill Eyes: Inspection of Pupils/Irises Pupils round and react: [x]Yes []No Sclera: []Icteric [x]Non-Icteric Inspection of Conjunctiva/Lids Conjunctiva: []Injected [x]Non-Injected Lids: [x]Intact []Lesion Present ENT/Mouth: External Inspection of ears/nose [x] Normal [] Scar/Lesion/Mass Inspection of teeth/lips/gums Dentition: [x][place] Teeth []Dentures Lips/Gums: [x]Intact []Lesion Present Mucosa: [][place] [x]Moist []Dry Neck: External Appearance Overall Appearance: [x]Normal []Lesion/Mass/Crepitus Present Trachea midline: [x]Yes []No Thyroid [x]Normal []Enlarged []Tender []Mass []Absent Respiratory: Respiratory effort []Labored [x]Non-Labored [x] Mechanically-Ventilated Auscultation []Clear [x]Crackles []Wheezes [][place] Cardiovascular: Auscultation Rate: [x]Regular []Irregular []Tachycardia []Bradycardia Rhythm: [x]Regular []Irregular Murmur: []Present [x]Absent Extremities Peripheral Edema: []Present [x]Absent Varicosities: []Present [x]Absent Gastrointestinal: Abdomen Palpation: [x]Soft []Firm []Tender [x]Non-Tender []Distended [x]Non-distended Mass: []Present [x]Absent Bowel Sounds: [x]Present []Absent Hernia: []Present [x]Absent Liver/Spleen: []Hepatosplenomegaly [x]Organomegaly Absent Musculoskeletal: Inspection of Digits and Nails Cyanosis: []Present [x]Absent Clubbing: []Present [x]Absent Ischemia: []Present [x]Absent Infection: []Present [x]Absent Skin: Inspection [x]Normal []Rash []Lesion []Ulcer Palpation [x]Warm []Cool []Dry []Clammy []Nodules []Induration []Skin-tightening Cap-Refill: [] <3 sec [] >3 seconds (delayed) Neurologic: GCS EYE: 1 - No eye opening GCS MOTOR: 1 - No motor response GCS VERBAL: 1 - No response Total GCS: 3 [] Sensation grossly intact Psych: Mental Status Alert: []Yes [x] No Mood/Affect []Normal []Flat []Agitated []Depressed []Anxious []Calm [x]Sedated []NAD [facility] within last 24 hours- BMP: Recent Labs 12/29/24 0401 12/29/24 0829 12/29/24 1123 NA 155* 156* 154* K 4.1 4.0 3.6 CL 113* 113* 109* CO2 33* 34* 36* BUN 20 21 22* CREATININE 1.16 1.16 1.20 CALCIUM 8.4 8.5 9.0 MG 2.3 2.3 2.3 PHOS 3.8 3.3 3.6 LFTs: Recent Labs 12/27/24 0320 12/28/24 0007 12/29/24 0401 AST 212* 198* 193* ALT 181* 156* 145* PROT 5.3* 5.8* 6.1* ALBUMIN 2.2* 2.4* 2.5* BILITOT 0.5 0.4 0.4 ALKPHOS 28* 44 59 Glucose: Recent Labs 12/27/24 0320 12/27/24 0322 12/27/24 0943 12/27/24 1500 12/27/24 2111 12/28/24 0007 12/28/24 0242 12/28/24 0845 12/28/24 1435 12/28/24 1438 12/28/24 2010 12/28/24 2101 12/29/24 0028 12/29/24 0401 12/29/24 0829 12/29/24 1123 GLUCOSE 153* -- -- -- -- 122* -- -- 135* -- 115* -- 101* 97 98 96 POCGLU -- 165* 143* 162* 135* -- 175* 199* -- 138* -- 110* -- -- -- -- Lab Results Component Value Date BLOODCX No growth at 4 days 12/25/2024 BLOODCX No growth at 4 days 12/25/2024 Assessment and Plan: Principal Problem: Cardiac arrest (HCC) Acute hypoxic respiratory failure requiring intubation ARDS Bilateral pneumonia, strep pneumonia & haemophilus Bilateral pulmonary opacities Pulmonary edema Septic shock, resolved S/p proning & paralyzing 12/25-12/27 Overall improving, extubated and reintubated 12/28 Continue zosyn for for 10 day course, last dose 01/02/2025 Increase hydrocortisone from to 100 Q8 Continue mechanical ventilation. Utilize ARDSnet lower PEEP for goal sats 88-95% Bedside US with small right sided effusion and bilateral pulmonary edema Follow bronchoscopy cx Lasix BID Propofol and fentanyl for sedation Daily CXR, q4h ABG Cardiac arrest/ Vfib arrest EP consulted; recommend ischemic evaluation following recovery as well as primary prevention ICD prior to discharge Palliative following Neurology s/o Tobacco abuse Alcohol use Delirium significant other Olga who reports patient has no illicit drug hx, daily Etoh use of 3 beers per day, sometimes more. Drug screen benzo, methadone, fentanyl pos Ethanol<10 On folic acid, thiamine Follow methadone confirmatory testing Consider nightly seroquel Hypernatremia Continue to monitor. May worsen with aggressive diuresis Acute kidney injury Improving Monitor I/Os NAGMA, resolved Rhabdomyolysis Transaminitis Improving CK's discontinued T2DM with hyperglycemia At goal Insulin reg in place Tobacco abuse Alcohol use Drug screen benzo, methadone, fentanyl pos Ethanol<10 On folic acid, thiamine Thrombocytopenia, resolved FEN: TF to goal DVT prophylaxis: heparin SQ GI prophylaxis: pantoprazole Cosigned by Jamey Ellis MD at 12/29/2024 5:40 PM EDT Associated attestation - Jamey Ellis MD - 12/29/2024 5:40 PM EDT I have personally performed a [id number] diagnostic evaluation on this patient on date of service 12/29/2024. History, labs, imaging studies, and electronic medical record have been reviewed by me. This note documented by the [x]greenhouse manager []JORGE reflects my history, exam, and medical decision making. I have reviewed and agree with the care plan. Changes were made in the orders as necessary. ROS documentation was reviewed and negative unless otherwise stated in HPI. Assessment: S/p VFA, risk HIE, on TTM Acute hypox resp fail d/t severe CAP, ARDS, shock ABRIL, rhabdo DM2 w/ hypergly Polysubst abuse Plan: Weaning vent per ARDSnet -->down to 50%,PEEP 10 K repleted If improves this rate -->potential for re-attempt extubation tomorrow -->no jessica however, improving quicker than anticipated Critical care time spent reviewing labs/films, examining patient, collaborating with other physicians but excluding procedures for life threatening organ failure is 34 minutes. [facility] Cardiology /Electrophysiology Progress Note HPI / Interval History: Mr. Cole is a 34 year old male with PMH of alcohol, tobacco, cocaine use. He presented from [facility] as an out of hospital arrest. He was in Vfib and defibrillated at 120 J into asystole. CPR x 12 minutes, 2 rounds or epinephrine with return of spontaneous circulation. He was intubated. Per family members, he was drinking alcohol and smoking marijuana the evening before. He was noted to have vomit on his shirt and not waking up. EMS was called. Family also stated that he had complained of palpitations and chest pain the day prior. He does not have a cardiac history and does not take any medications. 12/25/24: Echo with EF 45% mild global hypokinesis. He is now extubated, on high flow oxygen. Re-intubated 12/28 pm. 12/28- limited echo with EF 67%, normal wall motion. He is currently intubated and sedated. On propofol and fentanyl drips. Opened eyes to tactile stimuli. No family at bedside. Unable to obtain ROS. Telemetry SB 50s. Reintubated electively yesterday to protect airway with agitation. No arrhtyhmias noted Assessment/Plan HF NYHA Class [] I [] II [] III [] IV []Unable to assess [] N/A VF arrest treated with CPR, narcan - Stable. Unclear etiology/ circumstances. In SR/SB.. Repeat limited echo with normal wall motion and normal EF 67%. Will likely need an ischemic eval once clinically improved. EP also consulted to determine need for ICD. Await neurologic recovery and clearance from infection. LVEF improved. LVEF 45% on admission due to VF and arrest. Nothing to suggest ischemic event. Sepsis/ Aspiration pneumonia/ ARDS - Per critical care. Hx tobacco/ alcohol/ THC/ cocaine use - When appropriate, consult addiction medicine. Hypokalemia - Keep K+ > 4. Acute hypoxic respiratory failure - Re-intubated, per critical care. Discussed with Dr. Jones. Medications: acetaminophen, 1,000 mg, IntraVENous, q8h calcium gluconate, 2,000 mg, IntraVENous, Once chlorhexidine, , Topical, Daily folic acid, 1 mg, Per NG/OG Tube, Daily furosemide, 40 mg, IntraVENous, BID heparin, 5,000 Units, SubCUTAneous, 2 times per day Hydrocortisone Sod Suc (PF), 100 mg, IntraVENous, q8h insulin NPH, 5 Units, SubCUTAneous, q12h insulin regular, 0-12 Units, SubCUTAneous, q6h Lidocaine, 1 patch, TransDERmal, Daily mupirocin, 1 Application, Nasal, BID pantoprazole, 40 mg, Oral, Nightly Or pantoprazole (ProtoNix) 40 mg in sodium chloride (PF) 0.9 % 10 mL injection, 40 mg, IntraVENous, Nightly piperacillin-tazobactam, 4,500 mg, IntraVENous, q6h [Held by provider] potassium chloride, 40 mEq, Oral, TID sodium chloride 0.9%, 5-40 mL, IntraCATHeter, q8h thiamine (Vitamin B1) 250 mg in sodium chloride 0.9 % 100 mL IVPB, 250 mg, IntraVENous, q24h Followed by [START ON 12/31/2024] thiamine, 100 mg, Oral, Daily Infusion Medications: fentaNYL, 25-200 mcg/hr, Last Rate: 175 mcg/hr (12/29/24 0818) propofol, 5-50 mcg/kg/min, Last Rate: 40 mcg/kg/min (12/29/24 0639) Physical Examination: Vitals: 12/29/24 0600 12/29/24 0700 12/29/24 0752 12/29/24 0758 BP: BP Location: Patient Position: Pulse: 64 64 62 78 Resp: 13 12 14 Temp: 37.1 C (98.8 F) 37.1 C (98.8 F) TempSrc: SpO2: 94% 96% 95% 97% Weight: Height: Intake/Output Summary (Last 24 hours) at 12/29/2024 0834 Last data filed at 12/29/2024 0530 Gross per 24 hour Intake 2245 ml Output 4165 ml Net -1920 ml Patient Vitals for the past 168 hrs: Weight Weight Method 12/29/24 0533 181 lb 7 oz (82.3 kg) Bed scale 12/28/24 1146 183 lb (83 kg) -- 12/28/24 0115 183 lb 13.8 oz (83.4 kg) -- 12/27/24 0600 182 lb 1.6 oz (82.6 kg) -- 12/25/24 1217 153 lb (69.4 kg) -- 12/24/241953 153 lb 3.5 oz (69.5 kg) -- 12/24/24 193 153 lb 3.5 oz (69.5 kg) Bed scale Physical Exam Vitals reviewed. Constitutional: General: He is not in acute distress. Appearance: Normal appearance. He is ill-appearing. He is not diaphoretic. Interventions: He is sedated and intubated. HENT: Head: Normocephalic. Mouth/Throat: Comments: ETT/OG Cardiovascular: Rate and Rhythm: Regular rhythm. Bradycardia present. Pulses: Normal pulses. Heart sounds: Normal heart sounds. No murmur heard. No gallop. Pulmonary: Effort: Pulmonary effort is normal. No respiratory distress. He is intubated. Abdominal: General: Bowel sounds are decreased. There is no distension. Palpations: Abdomen is soft. Tenderness: There is no abdominal tenderness. Genitourinary: Comments: Alfaro with yellow urine. Musculoskeletal: General: Normal range of motion. Cervical back: Normal range of motion and neck supple. Right lower le+ Edema present. Left lower le+ Edema present. Skin: General: Skin is warm and dry. Capillary Refill: Capillary refill takes less than 2 seconds. Neurological: Comments: Sedated and intubated Psychiatric: Speech: He is noncommunicative (sedated/intubated). Laboratory Tests: TROPONIN I, CONVENTIONAL SENSITIVITY CK Date Value Ref Range Status 12/28/2024 4,747 (H) 30 - 185 U/L Final 12/27/2024 5,171 (H) 30 - 185 U/L Final 12/26/2024 7,535 (H) 30 - 185 U/L Final 12/26/2024 9,201 (H) 30 - 185 U/L Final 12/25/2024 11,279 (H) 30 - 185 U/L Final TROPONIN I, HIGH SENSITIVITY Troponin HS Serial Baseline Date Value Ref Range Status 12/24/2024 1,053 (HH) <=35 ng/L Final Comment: In individuals presenting with symptoms > 2h, a baseline troponin <= 5 ng/L suggests acute cardiac injury is unlikely and further serial testing is generally not indicated. 2h Troponin HS (Serial 2nd Troponin) Date Value Ref Range Status 12/24/2024 1,633 (HH) <=35 ng/L Final Comment: Rising or falling troponin delta greater than 15 ng/L as compared to baseline value is significant for acute cardiac injury. No results found for: TROPDELTBASE No results found for: "TROPHS3" No results found for: TROPDELTSEC Recent Labs 12/28/24 0007 12/28/24 1435 12/28/24200912/29/24 0028 12/29/24 0401 NA 149* 153* 154* 156* 155* K 3.1* 2.3* 2.5* 3.4* 4.1 CL 109* 115* 115* 115* 113* CO2 31* 31* 32* 31* 33* BUN 20 22* 22* 21 20 CREATININE 1.23 1.11 1.07 1.02 1.16 Recent Labs 12/27/24 0320 12/27/24 1401 12/28/24 0007 12/28/24 0105 12/28/24 1827 12/28/24 2209 12/29/24 0028 12/29/24 0401 WBC 10.5 -- 13.5* -- -- -- -- 13.9* HGB 9.6* < > 9.3* < > 9.4 10.3 9.1 9.4 8.8* HCT 26.4* -- 26.9* -- -- -- -- 25.7* MCV 85.7 -- 87.3 -- -- -- -- 89.2 PLT 130* -- 146 -- -- -- -- 142 < > = values in this interval not displayed. No results for input(s): "BNP" in the last 72 hours. No results for input(s): "TRIG", "HDL", "LDLCALC", "CHOL" in the last 72 hours. No results found for: LDLCHOLESTER Lab Results Component Value Date TSH 1.89 12/24/2024 EF BP Date Value Ref Range Status 12/28/2024 67 55 - 100 % Final 12/24/24 TRANSTHORACIC ECHOCARDIOGRAM (TTE) LIMITED (CONTRAST/BUBBLE/3D PRN) 12/28/2024 3:08 PM (Final) Interpretation Summary Left Ventricle: Left ventricle size is normal. Normal wall thickness. Normal left ventricular systolic function. EF by 2D Simpsons Biplane is 67%. Global longitudinal strain is normal with a value of -19.2%. Normal wall motion. Diastolic function not assessed. Right Ventricle: Right ventricle size is normal. Normal systolic function. Signed by: Willy Mtz MD on 12/28/2024 3:08 PM Chest X-ray 12/29/24: IMPRESSION: No significant interval change compared to previous exam. Represent extensive pulmonary edema or multifocal pneumonia. Other reports reviewed: Cardiac Tests: ECG: IMPRESSION: Sinus bradycardia ST elev, probable normal early repol pattern Telemetry findings reviewed: SB 50s EF BP Date Value Ref Range Status 12/28/2024 67 55 - 100 % Final Tenisha Mccloud APRN - VAIBHAV Date Of Service 12/29/2024 When patient is extubated, alert, oriented and cooperative, recommend re-calling EP consult for discussion if ICD is needed for primary prevention of VF. Most likely event was secondary to vomiting and aspiration. Good LV function and VF arrest. Recommend adding BBL when able to tolerate po's. Will sign off. Please call for any questions. I, Dr. Bebo Jones, saw and evaluated the patient on 12/29/2024. I personally obtained the pérez and critical portions of the history and physical exam. I reviewed the labs, imaging studies, and electronic medical record. I reviewed the JORGE's documentation, and discussed the patient with the JORGE. I agree with the JORGE's medical decision making and have edited the note to reflect my clinical findings and my assessment and plan. I performed a substantive portion of the care of this patient. Images from the original note were not included. OCCUPATIONAL THERAPY [facility] Name/MRN: Chelsea Cole ([id number]) Date: 12/29/2024 Pt currently on vent and sedated and unable to follow commands. Will hold and follow; re-attempt as appropriate. DANIEL Cordova/Prem Images from the original note were not included. PHYSICAL THERAPY [facility] Name/MRN: Chelsea Cole ([id number]) Date: 12/29/2024 Screen Pt on vent and sedated. Not following commands. Will hold PT, to follow with screens. Luis Geronimo PT Speech-Language Pathology Received orders for a speech evaluation and treat. Patient is currently intubated and unable to participate. "Completed" orders and await re-consult 12- 24 hours post-extubation. [facility] Respiratory Care Department Progress Note Spontaneous Awakening Trial Wean Screen SpO2>/=88%: Yes (12/29/24420) FiO2</=50%: No (12/29/24420) PEEP </=8cmH2O: No (12/29/24420) HR <140 BPM: Yes (12/29/24420) RR </= 35 breaths/min: Yes (12/29/24420) MAP >/= 65mmHg: Yes (12/29/24420) Arterial pH >7.30: Yes (12/29/24420) Safety Screen Spontaneous Breathing Trial (SBT - RT) : FiO2 is greater than 50% (12/29/24420) Spontaneous Breathing Trial Weaning Start Time: 0759 (12/28/24829) Weaning Tidal Volume: 470 mL (12/28/24829) Weaning Respiratory Rate: 17 (12/28/24829) Spontaneous Minute Volume (MV): 10.1 (12/28/24829) Total RSBI: 36 (12/28/24829) Weaning Tolerance: Good (12/28/24829) Weaning Stop Time: 829 (12/28/24829) Weaning Duration (min): 30 (12/28/24829) Spontaneous Breathing Trial (SBT - RT) Outcome: SBT Passed (12/28/24829) Vent Settings Vent Mode: Assist control (12/29/24149) Mandatory Type: Pressure Control (12/29/24149) Resp Rate (Set): 12 (12/28/242049) Vt (Set, mL): 360 mL (12/26/241624) IP Set (cm H2O): 15 cm H2O (12/28/242049) FiO2 (%): 100 % (12/29/24149) PEEP/CPAP (cm H2O): 14 cm H20 (12/28/242049) Inspiratory Time (sec): 0.9 sec (12/28/242049) Vitals MAP (mmHg): 92 (12/28/242299) Heart Rate: 62 (12/29/24149) Resp: 12 (12/29/24149) SpO2: 95 % (12/29/24149) Suctioning/Secretions Secretion Amount: None (12/28/242049) Secretion Color: White, Trevino (12/28/242049) Secretion Consistency: Thick (12/28/242049) ABG results Recent Labs 12/28/24 2209 12/29/24 0028 12/29/24 0401 PHART 7.393 7.402 7.443 [id number] 57.6* 56.8* 54.0* PO2ART 70.0* 85.2 88.7 [id number] 34.3* 34.6* 36.1* [id number] Ventilator Ventilator Ventilator Does this patient meet criteria for termination of mechanical ventilation No - Failed Wean Screen Name of physician notified via secure chat or in person : (NA if patient did not meet criteria) Comments: Thank you for involving Respiratory in the care of this patient, [facility] Respiratory Care Department Progress Note Spontaneous Awakening Trial Wean Screen SpO2>/=88%: Yes (12/28/24220) FiO2</=50%: Yes (12/28/24220) PEEP </=8cmH2O: Yes (12/28/24220) HR <140 BPM: Yes (12/28/24220) RR </= 35 breaths/min: Yes (12/28/24220) MAP >/= 65mmHg: Yes (12/28/24220) Arterial pH >7.30: Yes (12/28/24220) Safety Screen Spontaneous Breathing Trial (SBT - RT) : Proceed with SBT - No exclusion criteria met (12/28/24220) Spontaneous Breathing Trial Weaning Start Time: 758 (12/28/24829) Weaning Tidal Volume: 470 mL (12/28/24829) Weaning Respiratory Rate: 17 (12/28/24829) Spontaneous Minute Volume (MV): 10.1 (12/28/24829) Total RSBI: 36 (12/28/24829) Weaning Tolerance: Good (12/28/24829) Weaning Stop Time: 829 (12/28/24829) Weaning Duration (min): 30 (12/28/24829) Spontaneous Breathing Trial (SBT - RT) Outcome: SBT Passed (12/28/24829) Vent Settings Vent Mode: Spontaneous (12/28/24 1617) Mandatory Type: Pressure Control (12/28/24 1330) Resp Rate (Set): 18 (12/26/24 1625) Vt (Set, mL): 360 mL (12/26/24 162) FiO2 (%): 90 % (12/28/24 1648) PEEP/CPAP (cm H2O): 12 cm H20 (12/26/24 1625) Inspiratory Time (sec): 0.8 sec (12/26/24 162) Vitals MAP (mmHg): 113 (12/28/24 1600) Heart Rate: 86 (12/28/24 1650) Resp: 18 (12/28/24 1650) SpO2: 91 % (12/28/24 1650) Suctioning/Secretions Secretion Amount: None (12/28/24 1000) Secretion Color: White, Trevino (12/28/24 0800) Secretion Consistency: Thick (12/28/24 0800) ABG results Recent Labs 12/28/24 0105 12/28/24 1224 12/28/24 1435 PHART 7.478* 7.361 7.386 [id number] 47.1* 61.1* 57.9* PO2ART 95.1 53.4* 78.6* [id number] 34.1* 33.8* 33.9* [id number] Ventilator High Flow Oxygen Therapy (FiO2) Non-Invasive Ventilator Does this patient meet criteria for termination of mechanical ventilation Yes- Notified physician below Name of physician notified via secure chat or in person : Caleb (NA if patient did not meet criteria) Comments: MD at bedside ready for extubation. Thank you for involving Respiratory in the care of this patient, [facility] Cardiology /Electrophysiology Progress Note HPI / Interval History: Mr. Cole is a 34 year old male with PMH of alcohol, tobacco, cocaine use. He presented from [facility] as an out of hospital arrest. He was in Vfib and defibrillated at 120 J into asystole. CPR x 12 minutes, 2 rounds or epinephrine with return of spontaneous circulation. He was intubated. Per family members, he was drinking alcohol and smoking marijuana the evening before. He was noted to have vomit on his shirt and not waking up. EMS was called. Family also stated that he had complained of palpitations and chest pain the day prior. He does not have a cardiac history and does not take any medications. 12/25/24: Echo with EF 45% mild global hypokinesis. He is now extubated, on high flow oxygen. Today, he is agitated, restless. On precedex drip. Family members/ mother at bedside. He nods head no to pain. Limited echo today completed, final results pending, but prelim EF is 67% with normal wall motion. Chart, labs, vitals reviewed. Telemetry SR. Neurology following. Extubated. Agitated but does respond to some questions. No pain or SOB. Assessment/Plan HF NYHA Class [] I [] II [] III [] IV []Unable to assess [] N/A VF arrest treated with CPR, narcan - Stable. In SR. Final results of limited echo today pending, but preliminary read is EF 67% with normal wall motion. Will likely need an ischemic eval once clinically improved. EP also consulted to determine need for ICD. Await neurologic recovery and clearance from infection. Precipitating event is unclear. LV function improved. Initial LVEF 45% likely immediately post-arrest. Will likely need diagnostic cath and EP consult for ICD once mental status recovers. Sepsis/ Aspiration pneumonia/ ARDS - Now extubated, per critical care. Please see CCM notes. Hx tobacco/ alcohol/ THC/ cocaine use - When appropriate, consult addiction medicine. Hypokalemia - Keep K+ > 4. Acute hypoxic respiratory failure - Extubated, requiring high flow oxygen, per critical care. Will discuss with Dr. Jnoes. Medications: acetaminophen, 1,000 mg, IntraVENous, q8h chlorhexidine, , Topical, Daily folic acid, 1 mg, Per NG/OG Tube, Daily heparin, 5,000 Units, SubCUTAneous, 2 times per day Hydrocortisone Sod Suc (PF), 50 mg, IntraVENous, q8h insulin NPH, 5 Units, SubCUTAneous, q12h insulin regular, 0-12 Units, SubCUTAneous, q6h Lidocaine, 1 patch, TransDERmal, Daily mupirocin, 1 Application, Nasal, BID pantoprazole, 40 mg, Oral, Nightly Or pantoprazole (ProtoNix) 40 mg in sodium chloride (PF) 0.9 % 10 mL injection, 40 mg, IntraVENous, Nightly piperacillin-tazobactam, 4,500 mg, IntraVENous, q6h sodium chloride 0.9%, 5-40 mL, IntraCATHeter, q8h thiamine (Vitamin B1) 250 mg in sodium chloride 0.9 % 100 mL IVPB, 250 mg, IntraVENous, q24h Followed by [START ON 12/31/2024] thiamine, 100 mg, Oral, Daily Infusion Medications: dexmedeTOMIDine, 0.1-1.5 mcg/kg/hr, Last Rate: Stopped (12/28/24 1256) Physical Examination: Vitals: 12/28/24 1026 12/28/24 1030 12/28/24 1146 12/28/24 1200 BP: (!) 136/101 BP Location: Patient Position: Pulse: 68 63 59 82 Resp: 18 17 20 22 Temp: 36.8 C (98.2 F) TempSrc: Core SpO2: 90% 90% 93% 91% Weight: 183 lb (83 kg) Height: 5' 6" (1.676 m) Intake/Output Summary (Last 24 hours) at 12/28/2024 1315 Last data filed at 12/28/2024 1200 Gross per 24 hour Intake 2952 ml Output 4645 ml Net -1693 ml Patient Vitals for the past 168 hrs: Weight Weight Method 12/28/24 1146 183 lb (83 kg) -- 12/28/24 0115 183 lb 13.8 oz (83.4 kg) -- 12/27/24 0600 182 lb 1.6 oz (82.6 kg) -- 12/25/24 1217 153 lb (69.4 kg) -- 12/24/24 195 153 lb 3.5 oz (69.5 kg) -- 12/24/24 193 153 lb 3.5 oz (69.5 kg) Bed scale Physical Exam Vitals reviewed. Constitutional: General: He is not in acute distress. Appearance: Normal appearance. He is ill-appearing. He is not diaphoretic. Interventions: Nasal cannula in place. Comments: Agitated. HENT: Head: Normocephalic. Mouth/Throat: Pharynx: No oropharyngeal exudate. Eyes: General: Right eye: No discharge. Left eye: No discharge. Extraocular Movements: Extraocular movements intact. Cardiovascular: Rate and Rhythm: Normal rate and regular rhythm. Pulses: Normal pulses. Heart sounds: Normal heart sounds. No murmur heard. No gallop. Pulmonary: Effort: Pulmonary effort is normal. No respiratory distress. Breath sounds: Rhonchi present. Abdominal: General: Bowel sounds are decreased. There is no distension. Palpations: Abdomen is soft. Tenderness: There is no abdominal tenderness. Genitourinary: Comments: Alfaro with yellow urine. Musculoskeletal: General: Normal range of motion. Cervical back: Normal range of motion and neck supple. Right lower leg: No edema. Left lower leg: No edema. Skin: General: Skin is warm and dry. Capillary Refill: Capillary refill takes less than 2 seconds. Neurological: Mental Status: He is alert. He is confused. Cranial Nerves: No cranial nerve deficit. Comments: Agitated/ restless Psychiatric: Behavior: Behavior is agitated. Laboratory Tests: TROPONIN I, CONVENTIONAL SENSITIVITY CK Date Value Ref Range Status 12/28/2024 4,747 (H) 30 - 185 U/L Final 12/27/2024 5,171 (H) 30 - 185 U/L Final 12/26/2024 7,535 (H) 30 - 185 U/L Final 12/26/2024 9,201 (H) 30 - 185 U/L Final 12/25/2024 11,279 (H) 30 - 185 U/L Final TROPONIN I, HIGH SENSITIVITY Troponin HS Serial Baseline Date Value Ref Range Status 12/24/2024 1,053 (HH) <=35 ng/L Final Comment: In individuals presenting with symptoms > 2h, a baseline troponin <= 5 ng/L suggests acute cardiac injury is unlikely and further serial testing is generally not indicated. 2h Troponin HS (Serial 2nd Troponin) Date Value Ref Range Status 12/24/2024 1,633 (HH) <=35 ng/L Final Comment: Rising or falling troponin delta greater than 15 ng/L as compared to baseline value is significant for acute cardiac injury. No results found for: TROPDELTBASE No results found for: "TROPHS3" No results found for: TROPDELTSEC Recent Labs 12/26/24 0406 12/26/24 0753 12/26/24 1203 12/27/24 0320 12/28/24 0007 NA 133* 134* 133* 133* 149* K 4.3 3.9 3.7 3.0* 3.1* CL 98 96* 97* 97* 109* CO2 23 25 24 27 31* BUN 27* 26* 26* 26* 20 CREATININE 1.63* 1.49* 1.39* 1.20 1.23 Recent Labs 12/26/24 0406 12/26/24 0557 12/27/24 0320 12/27/24 1401 12/28/24 0007 12/28/24 0105 12/28/24 1224 WBC 8.8 -- 10.5 -- 13.5* -- -- HGB 11.0* < > 9.6* 9.6 9.3* 10.1 10.2 HCT 29.8* -- 26.4* -- 26.9* -- -- MCV 83.0 -- 85.7 -- 87.3 -- -- PLT 117* -- 130* -- 146 -- -- < > = values in this interval not displayed. No results for input(s): "BNP" in the last 72 hours. No results for input(s): "TRIG", "HDL", "LDLCALC", "CHOL" in the last 72 hours. No results found for: LDLCHOLESTER Lab Results Component Value Date TSH 1.89 12/24/2024 EF BP Date Value Ref Range Status 12/28/2024 67 55 - 100 % 12/24/24 TRANSTHORACIC ECHOCARDIOGRAM (TTE) COMPLETE (CONTRAST/BUBBLE/3D PRN) 12/25/2024 1:40 PM (Final) Interpretation Summary Left Ventricle: Left ventricle is smaller than normal. Normal wall thickness. Mildly reduced left ventricular systolic function. EF by 2D Simpsons Biplane is 45%. Mild global hypokinesis present. Right Ventricle: Right ventricle size is normal. Moderately reduced systolic function. No significant valvular abnormalities. Signed by: Rory Virk MD on 12/25/2024 1:40 PM Chest X-ray 12/28/24: Impression: Lines and tubes unchanged. Diffuse bilateral infiltrate or edema worse on the right. There is mildly worsening aeration within the right mid and upper lung when compared to the study from the day prior. Other reports reviewed: Cardiac Tests: ECG: not done today Tracing reviewed. Telemetry findings reviewed: SR 60-90s EF BP Date Value Ref Range Status 12/28/2024 67 55 - 100 % Tenisha Mccloud, [facility] [employer] - [employer] JUSTICE Date Of Service 12/28/2024 I, Dr. Bebo Jones, saw and evaluated the patient on 12/28/2024. I personally obtained the pérez and critical portions of the history and physical exam. I reviewed the labs, imaging studies, and electronic medical record. I reviewed the JORGE's documentation, and discussed the patient with the JORGE. I agree with the JORGE's medical decision making and have edited the note to reflect my clinical findings and my assessment and plan. I performed a substantive portion of the care of this patient. Images from the original note were not included. OCCUPATIONAL THERAPY [facility] Name/MRN: Chelsea Cole ([id number]) Date: 12/28/2024 OT eval orders received. Pt currently with active bedrest orders. Will follow and attempt as able. Mamie Ocampo OTR/L ICU Progress Note Name: Chelsea Cole : 1990(34 y.o.) Date: 12/28/24 Team: MICU Attending: Dr. Jamey Ellis Subjective: Hospital Summary: No significant PMH Admitted 12/24/2024 by CCU. Significant other woke up to find patient unresponsive, covered in vomit after prior night of drinking Upon EMS evaluation in cardiac arrest. In Vfib CPR x12 minutes, 2 rounds of Epi. ROSC obtained Tx from [facility] to [facility] Found to have severe pneumonia,ARDS. Proned 12/25-12/27. CK elevated to 15,000, improving TTE showing EF 45% EP consulted, recommend ischemic evaluation when stabilized Successful extubation 12/28/2024 Interval Events: Successfully extubated this morning Restless/ delirious following extubation. Controlled by precedex, though limited by bradycardia Spoke with significant other Olga who reports patient has no illicit drug hx, though daily Etoh use of 3 beers per day, sometimes more. Scheduled Meds:acetaminophen, 1,000 mg, Oral, q8h chlorhexidine, , Topical, Daily folic acid, 1 mg, Per NG/OG Tube, Daily heparin, 5,000 Units, SubCUTAneous, 2 times per day Hydrocortisone Sod Suc (PF), 100 mg, IntraVENous, q8h insulin NPH, 5 Units, SubCUTAneous, q12h insulin regular, 0-12 Units, SubCUTAneous, q6h mupirocin, 1 Application, Nasal, BID pantoprazole, 40 mg, Oral, Nightly Or pantoprazole (ProtoNix) 40 mg in sodium chloride (PF) 0.9 % 10 mL injection, 40 mg, IntraVENous, Nightly piperacillin-tazobactam, 4,500 mg, IntraVENous, q6h potassium chloride, 40 mEq, IntraVENous, Once sodium chloride 0.9%, 5-40 mL, IntraCATHeter, q8h sodium phosphate in D5, 20 mmol, IntraVENous, Once thiamine (Vitamin B1) 250 mg in sodium chloride 0.9 % 100 mL IVPB, 250 mg, IntraVENous, q24h Followed by [START ON 12/31/2024] thiamine, 100 mg, Oral, Daily Continuous Infusions:dexmedeTOMIDine, 0.1-1.5 mcg/kg/hr, Last Rate: 0.6 mcg/kg/hr (12/28/24 050) fentaNYL, 25-200 mcg/hr, Last Rate: 150 mcg/hr (12/28/24605) norepinephrine in sodium chloride 0.9 %, 0.01-3.3 mcg/kg/min Objective: Last Vitals: BP MAP 148/84 (12/28/24 0400) 106 (12/28/24 040) Arterial BP MAP 179/103 (12/28/2445) 130 mmHg (12/28/24644) Temp 37.2 C (99 F) (12/28/24 040) Pulse 93 (12/28/2445) Resp 13 (12/28/24644) SpO2 96 % (12/28/24644) Weight 183 lb 13.8 oz (83.4 kg) (12/28/24 0115) BMI Body mass index is 29.68 kg/m . I/O: 12/27 699 - 12/28 658 In: 2839 [I.V.:2033] Out: 4530 [Urine:4530] Ventilator: Resp Rate (Set): 8 Vt (Set, mL): 360 mL IP Set (cm H2O): 15 cm H2O FiO2 (%): 45 % PEEP/CPAP (cm H2O): 8 cm H20 Inspiratory Time (sec): 0.9 sec Oxygen Delivery: Invasive Lines / Tubes / Drains: Peripheral IV 12/24/24 Left Antecubital (Active) Number of days: 4 Peripheral IV 12/27/24 Anterior;Distal;Right;Upper Arm (Active) Number of days: 0 Peripheral IV 12/27/24 Anterior;Proximal;Right Forearm (Active) Number of days: 0 NG/OG Tube Orogastric Center mouth (Active) Number of days: 4 Urethral Catheter Temperature probe (Active) Number of days: 4 ETT 7.5 mm (Active) Number of days: 4 Arterial Line 12/24/24 Right Radial (Active) Number of days: 3 Constitutional: General Appearance []WDWN []Obese []Cachectic []Thin [x]Ill Eyes: Inspection of Pupils/Irises Pupils round and react: [x]Yes []No Sclera: []Icteric [x]Non-Icteric Inspection of Conjunctiva/Lids Conjunctiva: []Injected [x]Non-Injected Lids: [x]Intact []Lesion Present ENT/Mouth: External Inspection of ears/nose [x] Normal [] Scar/Lesion/Mass Inspection of teeth/lips/gums Dentition: [x][place] Teeth []Dentures Lips/Gums: [x]Intact []Lesion Present Mucosa: [][place] [x]Moist []Dry Neck: External Appearance Overall Appearance: [x]Normal []Lesion/Mass/Crepitus Present Trachea midline: [x]Yes []No Thyroid [x]Normal []Enlarged []Tender []Mass []Absent Respiratory: Respiratory effort []Labored [x]Non-Labored [] Mechanically-Ventilated Auscultation [x]Clear []Crackles []Wheezes []Rhonchi Cardiovascular: Auscultation Rate: [x]Regular []Irregular []Tachycardia []Bradycardia Rhythm: [x]Regular []Irregular Murmur: []Present [x]Absent Extremities Peripheral Edema: []Present [x]Absent Varicosities: []Present [x]Absent Gastrointestinal: Abdomen Palpation: [x]Soft []Firm []Tender [x]Non-Tender []Distended [x]Non-distended Mass: []Present [x]Absent Bowel Sounds: [x]Present []Absent Hernia: []Present [x]Absent Liver/Spleen: []Hepatosplenomegaly [x]Organomegaly Absent Musculoskeletal: Inspection of Digits and Nails Cyanosis: []Present [x]Absent Clubbing: []Present [x]Absent Ischemia: []Present [x]Absent Infection: []Present [x]Absent Skin: Inspection [x]Normal []Rash []Lesion []Ulcer Palpation [x]Warm []Cool []Dry []Clammy []Nodules []Induration []Skin-tightening Cap-Refill: [] <3 sec [] >3 seconds (delayed) Neurologic: GCS EYE: 4 - Opens spontaneously GCS MOTOR: 6 - Obeys commands for movement GCS VERBAL: 4 - Confused Total GCS: 14 [x] Sensation grossly intact Psych: Mental Status Alert: [x]Yes [] No Mood/Affect []Normal []Flat []Agitated []Depressed [x]Anxious []Calm []Sedated []NAD [facility] within last 24 hours- BMP: Recent Labs 12/26/24 0406 12/26/24 0753 12/26/24 1203 12/27/24 0320 12/28/24 0007 NA 133* < > 133* 133* 149* K 4.3 < > 3.7 3.0* 3.1* CL 98 < > 97* 97* 109* CO2 23 < > 24 27 31* BUN 27* < > 26* 26* 20 CREATININE 1.63* < > 1.39* 1.20 1.23 CALCIUM 8.0* < > 8.3* 8.4 9.0 MG 2.3 -- -- 2.3 2.6 PHOS 4.2 -- -- 3.2 1.2* < > = values in this interval not displayed. LFTs: Recent Labs 12/26/24 1203 12/27/24 0320 12/28/24 0007 AST 241* 212* 198* ALT 195* 181* 156* PROT 4.7* 5.3* 5.8* ALBUMIN 2.1* 2.2* 2.4* BILITOT 0.4 0.5 0.4 ALKPHOS 27* 28* 44 Glucose: Recent Labs 12/25/24 1634 12/25/24 2036 12/25/24 2352 12/26/24 0341 12/26/24 0406 12/26/24 0753 12/26/24 0848 12/26/24 1203 12/26/24 1539 12/26/24 2100 12/27/24 0320 12/27/24 0322 12/27/24 0943 12/27/24 1500 12/27/24 2111 12/28/24 0007 12/28/24 0242 GLUCOSE 271* 282* 257* -- 202* 223* -- 185* -- -- 153* -- -- -- -- 122* -- POCGLU -- -- -- < > -- -- 196* -- 174* 157* -- 165* 143* 162* 135* -- 175* BHYDRXBUT -- -- 1.8 -- -- -- -- -- -- -- -- -- -- -- -- -- -- < > = values in this interval not displayed. Lab Results Component Value Date BLOODCX No growth at 72 hours 12/25/2024 BLOODCX No growth at 72 hours 12/25/2024 Assessment and Plan: Principal Problem: Cardiac arrest (HCC) Acute hypoxic respiratory failure ARDS Bilateral pneumonia, strep pneumonia & haemophilus Bilateral pulmonary opacities Septic shock S/p proning & paralyzing 12/25-12/27 Overall improving, extubated 12/28 Continue zosyn for for 7 day course, last dose 12/30/2024 De-escalate hydrocortisone from 100 to 50 Q8 Now weaned off vasopressors Bedside US with no significant effusion, hepatization of RLL Cardiac arrest/ Vfib arrest EP consulted; recommend ischemic evaluation following recovery as well as primary prevention ICD prior to discharge Palliative following Neurology following=> MRI head canceled today Tobacco abuse Alcohol use Delirium significant other Olga who reports patient has no illicit drug hx, daily Etoh use of 3 beers per day, sometimes more. Drug screen benzo, methadone, fentanyl pos Ethanol<10 On folic acid, thiamine Plan to reach out to toxicology lab to investigate positive methadone test, per Dr. 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 Cosigned by aJmey Ellis MD at 12/28/2024 7:20 PM EDT Associated attestation - Jamey Ellis MD - 12/28/2024 7:20 PM EDT I have personally performed a qtbg-of-ucgd diagnostic evaluation on this patient on date of service 12/28/24. History, labs, imaging studies, and electronic medical record have been reviewed by me. This note documented by the [x]greenhouse manager []JORGE reflects my history, exam, and medical decision making. I have reviewed and agree with the care plan. Changes were made in the orders as necessary. ROS documentation was reviewed and negative unless otherwise stated in HPI. Assessment: S/p VFA, risk HIE, on TTM Acute hypox resp fail d/t severe CAP, ARDS, shock ABRIL, rhabdo DM2 w/ hypergly Polysubst abuse Plan: This AM, passed SBT and extubated to HFNC Alert, follows commands, moves all extremities, OK voice However, restless through day -->precedex w/ carisa -->haldol helpful Increase pulm edema prompted more lasix Challenges replacing K w/ no enteral or central access Ultimately re-LOUIS electively d/t all thee above Overall, however, prognosis good Critical care time spent reviewing labs/films, examining patient, collaborating with other physicians but excluding procedures for life threatening organ failure is 35 minutes. PROGRESS NOTE. NEUROCRITICAL CARE Patient Name:Chelsea Cole Patient : 1990 Acct: [id number] Date of Admission: 12/24/2024 Room/Bed: T1-115/T1-115 A PCP: Breanna Roman Patient location ICU Remains in the hospital due to persistent unresolved acute issues, Chief complaint: cardiac arrest New Complain: No documented events overnight. SBP have been 130-160's. Low grade temps 99. Off paralytics. Currently on fentanyl and precedex. MRI pending for today. According to nursing documentation it seems he is responding to voice and following commands. Upon seeing him this morning, he was awake and alert. Slightly delirious but following commands. Sedation:none Diet/TF:NPO Alfaro: Yes VTE prophylaxis: YES SQ heparin q8h Activity: PT/OT Disposition: TBD Current Hospital Medications: Current Facility-Administered Medications: Acetaminophen (Tylenol) 650 MG/20.3ML solution 650 mg, 650 mg, Oral, q4h PRN OR acetaminophen (Tylenol) suppository 650 mg, 650 mg, Rectal, q4h PRN, Travis Anaya MD acetaminophen (Tylenol) solution 1,000 mg, 1,000 mg, Oral, q8h, Maverick Miramontes MD, 1,000 mg at 12/28/24 0246 chlorhexidine (Hibiclens) 4 % solution, , Topical, Daily, Maverick Miramontes MD dexmedeTOMIDine in NS (Precedex) 400 mcg in 100 mL (4 mcg/mL) infusion, 0.1-1.5 mcg/kg/hr, IntraVENous, Continuous, Jamey Ellis MD, Last Rate: 12.39 mL/hr at 12/28/24 0502, 0.6 mcg/kg/hr at 12/28/24 0502 dextrose 5 % infusion, 100 mL/hr, IntraVENous, PRN, Radha Myers DO dextrose 50 % solution 12.5 g, 12.5 g, IntraVENous, PRN, Radha Myers DO fentaNYL (Sublimaze) 1000 mcg in sodium chloride 0.9 % 100 mL 10 mcg/mL infusion, 25-200 mcg/hr, IntraVENous, Continuous, Aryan Wilkinson DO, Last Rate: 15 mL/hr at 12/28/24 0606, 150 mcg/hr at 12/28/24 0606 folic acid (Folvite) tablet 1 mg, 1 mg, Per NG/OG Tube, Daily, Aryan Wilkinson DO glucagon (human recombinant) injection 1 mg, 1 mg, IntraMUSCular, PRN, Radha Myers DO glucose oral gel 15 g, 15 g, Oral, PRN, Radha Myers DO heparin injection 5,000 Units, 5,000 Units, SubCUTAneous, 2 times per day, Devi Hutson MD, 5,000 Units at 12/27/242000 Hydrocortisone Sod Suc (PF) (Solu-CORTEF) injection 100 mg, 100 mg, IntraVENous, q8h, Rex Ellis MD, 100 mg at 12/28/248 insulin NPH (Isophane) (HumuLIN N,NovoLIN N) injection 5 Units, 5 Units, SubCUTAneous, q12h, Rex Ellis MD, 5 Units at 12/28/24246 insulin regular (HumuLIN R,NovoLIN R) injection 0-12 Units, 0-12 Units, SubCUTAneous, q6h, Rex Ellis MD, 2 Units at 12/28/247 mupirocin (Bactroban) 2 % ointment 1 Application, 1 Application, Nasal, BID, Jodi Riggs DO, 1 Application at 12/27/242000 naloxone (Narcan) injection 0.4 mg, 0.4 mg, IntraVENous, q5 min PRN, Jodi Riggs DO norepinephrine (Levophed) 4 mg in 0.9% sodium chloride 250 mL infusion (weight based) (premix), 0.01-3.3 mcg/kg/min, IntraVENous, Continuous, Jamey Ellis MD ondansetron ODT (Zofran-ODT) disintegrating tablet 4 mg, 4 mg, Oral, q8h PRN OR ondansetron (Zofran) injection 4 mg, 4 mg, IntraVENous, q6h PRN, Jodi Riggs DO pantoprazole (ProtoNix) EC tablet 40 mg, 40 mg, Oral, Nightly OR pantoprazole (ProtoNix) 40 mg in sodium chloride (PF) 0.9 % 10 mL injection, 40 mg, IntraVENous, Nightly, Radha Myers DO, 40 mg at 12/27/242000 piperacillin-tazobactam (Zosyn) 4,500 mg in sodium chloride 0.9 % 100 mL IVPB Mini-Bag Plus, 4,500 mg, IntraVENous, q6h, Maverick Miramontes MD, Stopped at 12/28/24 0544 potassium chloride 40 mEq in NS 500 mL IVPB (premix), 40 mEq, IntraVENous, Once, Jamey Ellis MD sodium chloride 0.9 % infusion, 5-250 mL/hr, IntraVENous, PRN, Jodi Riggs DO sodium chloride 0.9% (NS) flush 5-40 mL, 5-40 mL, IntraCATHeter, q8h, Maverick Miramontes MD, 10 mL at 12/27/24 0924 sodium chloride 0.9% (NS) flush 5-40 mL, 5-40 mL, IntraVENous, PRN, Maverick Miramontes MD sodium phosphates 20 mmol in dextrose 5 % 250 mL IVPB, 20 mmol, IntraVENous, Once, Jamey Ellis MD, Last Rate: 83.3 mL/hr at 12/28/24 0711, 20 mmol at 12/28/24 0711 [COMPLETED] thiamine (Vitamin B1) 500 mg in sodium chloride 0.9 % 100 mL IVPB, 500 mg, IntraVENous, q8h, Stopped at 12/26/24 1445 FOLLOWED BY thiamine (Vitamin B1) 250 mg in sodium chloride 0.9 % 100 mL IVPB, 250 mg, IntraVENous, q24h, Stopped at 12/27/24 2155 FOLLOWED BY [START ON 12/31/2024] thiamine (Vitamin B1) tablet 100 mg, 100 mg, Oral, Daily, Jodi Riggs DO Continuous Infusions: dexmedeTOMIDine, 0.1-1.5 mcg/kg/hr, Last Rate: 0.6 mcg/kg/hr (12/28/24 0502) fentaNYL, 25-200 mcg/hr, Last Rate: 150 mcg/hr (12/28/24 0606) norepinephrine in sodium chloride 0.9 %, 0.01-3.3 mcg/kg/min Allergies: Patient has no allergy information on record. Review of Systems Unable to perform ROS: Acuity of condition Objective: Telemetry: Arrhythmia:No Physical Examination: Patient Vitals for the past 8 hrs: BP Temp Temp src Pulse Resp SpO2 Weight 12/28/2445 -- -- -- 93 13 96 % -- 12/28/24 0638 -- -- -- 94 12 98 % -- 12/28/2430 -- -- -- 91 (!) 10 92 % -- 12/28/2415 -- -- -- 76 17 95 % -- 12/28/24 0600 -- -- -- 60 16 97 % -- 12/28/2445 -- -- -- 51 16 99 % -- 12/28/24529 -- -- -- (!) 46 16 99 % -- 12/28/24514 -- -- -- (!) 48 16 98 % -- 12/28/2412 -- -- -- 57 16 98 % -- 12/28/24 0500 -- -- -- 55 16 97 % -- 12/28/245 -- -- -- 60 16 96 % -- 12/28/240 -- -- -- 65 16 95 % -- 12/28/245 -- -- -- 68 16 93 % -- 12/28/24 0400 148/84 37.2 C (99 F) Esophageal 71 16 94 % -- 12/28/245 -- -- -- 81 16 92 % -- 12/28/24 0330 -- -- -- 103 18 99 % -- 12/28/24 0315 -- -- -- 90 16 (!) 89 % -- 12/28/24 0300 -- -- -- 82 16 94 % -- 12/28/24 0245 -- -- -- 85 16 90 % -- 12/28/24 0230 -- -- -- 79 16 95 % -- 12/28/24 0221 -- -- -- 76 16 96 % -- 12/28/24 0215 -- -- -- 75 16 96 % -- 12/28/24 0200 -- -- -- 77 16 96 % -- 12/28/24 0145 -- -- -- 67 16 98 % -- 12/28/24 0130 -- -- -- 67 16 98 % -- 12/28/24 0115 -- -- -- 68 16 97 % 83.4 kg (183 lb 13.8 oz) 12/28/24 0100 -- -- -- 69 16 98 % -- 12/28/24 0045 -- -- -- 66 16 98 % -- 12/28/24 0030 -- -- -- 66 16 98 % -- 12/28/24 0015 -- -- -- 67 16 97 % -- 12/28/24 0000 135/80 37 C (98.6 F) Esophageal 72 16 96 % -- 12/27/24 2345 -- -- -- 74 16 98 % -- 12/27/24 2330 -- -- -- 85 15 99 % -- I/O last 3 completed shifts: In: 4707 (56.4 mL/kg) [I.V.:3676 (44.1 mL/kg); NG/GT:1031] Out: 5003 (60 mL/kg) [Urine:5003 (1.7 mL/kg/hr)] Weight: 83.4 kg General Physical Examination: General:young black male HEENT:Normocephalic, atraumaticl CV: S1+S2, RRR, no MRG. Pulm:CTA b/l, unlabored high flow O2 Abdomen: Soft NT/ND. BS + Skin: Intact without ulcers, breakdowns or discoloration Extremities: normal with no edema or cyanosis Orthopedic limitation; N/A Pulses: Intact peripherally Carotid auscultation :No bruits Neurological Examination: Higher Functions: Mental Status Exam: Level of Alertness:Awake Orientation: Limited by level of consciousness Memory: Limited by level of consciousness Fund of Knowledge: Limited by level of consciousness Language: Normal Dysarthria Slightly dysarthric sounding while on high flow Cranial Nerves: -II Visual acuity: abnormal, limited due to patient unable to perform exam -II Visualfields: poor reliability due to patient level of consciousness or structural limitation---blinking to threat bilaterally but unable to stay still to participate -III Pupils (~ 2 mm OD, 2 mm OU) equal, round, reactive to light -III-IV- Extraocular Movements: intact -Nystagmus not present -Saccades and pursuits normal -V Facial sensation: intact Corneal's Intact bilateral -VII Facial strength:intact -VIII Hearing: intact -IX-X - Gag reflex present -X Palate: intact -XI Shoulder shrug: intact -XII Tongue movement: not participant MotorExamination: Tone after evaluation of 4 limbs, the following findings applied: Normal -Bulk: normal -Muscle Stretch afterevaluation of all limbs, and axial musculature the following findings applied: Drift: absent -Reflexes: after evaluation of 4 limbs, the following findings applied ; normal all limbs -Plantar responce: Flexor bilaterally Sensory appears normal butlimited reliability, Coordination: Arms limited reliability of exam/ poor participation Legs limited reliability of exam/ poor participation Tremors not present Gait abnormal, patient unable to walk due to acute circumstances / bed rest / safety concerns ANCILLARY Last 24hrs Recent Results (from the past 24 hours) POCT glucose meter Collection Time: 12/27/24 9:43 AM Result Value Ref Range Glucose 143 (H) 70 - 100 mg/dL Blood Gas, Arterial Collection Time: 12/27/24 2:01 PM Result Value Ref Range pH, Arterial 7.450 7.350 - 7.450 pCO2, Arterial 45.3 (H) >35.0 - <45.0 mm Hg pO2, Arterial 100.9 (H) 80.0 - 100.0 mm Hg HCO3, Arterial 30.8 (H) 21.0 - 25.0 mmol/L O2 Sat, Arterial 96.4 95.0 - 100.0 % Base Excess, Arterial 6.1 (H) -3.0 - 3.0 mmol/L CO2 Total 32.2 (H) 23.0 - 27.0 mmol/L Hgb, blood gas 9.6 Screen only g/dl Source Of Oxygen Ventilator Amount Of Oxygen 35%, 8 peep POCT glucose meter Collection Time: 12/27/24 3:00 PM Result Value Ref Range Glucose 162 (H) 70 - 100 mg/dL POCT glucose meter Collection Time: 12/27/24 9:11 PM Result Value Ref Range Glucose 135 (H) 70 - 100 mg/dL CBC auto differential Collection Time: 12/28/24 12:07 AM Result Value Ref Range Auto WBC 13.5 (H) 3.6 - 10.7 10*3/uL RBC 3.08 (L) 4.40 - 5.90 10*6/uL Hemoglobin 9.3 (L) 13.0 - 18.0 g/dL Hematocrit 26.9 (L) 40.0 - 52.0 % MCV 87.3 77.0 - 99.0 fL MCH 30.2 26.0 - 34.0 pg MCHC 34.6 30.5 - 36.0 % RDW 13.3 11.5 - 15.0 % Platelets 146 140 - 440 10*3/uL MPV 10.2 9.0 - 12.7 fL Calcium, ionized Collection Time: 12/28/24 12:07 AM Result Value Ref Range Calcium, Ion 4.60 4.30 - 5.20 mg/dL PH, IONIZED CALCIUM 7.47 (H) 7.31 - 7.46 Phosphorus Collection Time: 12/28/24 12:07 AM Result Value Ref Range PHOSPHORUS 1.2 (L) 2.3 - 4.7 mg/dL Magnesium Collection Time: 12/28/24 12:07 AM Result Value Ref Range MAGNESIUM 2.6 1.6 - 2.6 mg/dL CK Collection Time: 12/28/24 12:07 AM Result Value Ref Range CK 4,747 (H) 30 - 185 U/L Comprehensive metabolic panel Collection Time: 12/28/24 12:07 AM Result Value Ref Range SODIUM 149 (H) 136 - 145 mmol/L POTASSIUM 3.1 (L) 3.5 - 5.1 mmol/L CHLORIDE 109 (H) 98 - 107 mmol/L CARBON DIOXIDE 31 (H) 22 - 29 mmol/L ANION GAP 9 3 - 13 mmol/L UREA NITROGEN 20 8 - 21 mg/dL CREATININE 1.23 0.72 - 1.25 mg/dL GLUCOSE 122 (H) 74 - 100 mg/dL CALCIUM 9.0 8.4 - 10.2 mg/dL AST (SGOT) 198 (H) <34 U/L ALT 156 (H) <40 U/L ALKALINE PHOSPHATASE 44 40 - 150 U/L ALBUMIN 2.4 (L) 3.5 - 5.0 g/dL BILIRUBIN, TOTAL 0.4 <1.2 mg/dL TOTAL PROTEIN 5.8 (L) 6.4 - 8.3 g/dL eGFR 78.5 >60.0 mL/min/1.73m*2 MANUAL DIFFERENTIAL (CELLAVISION) Collection Time: 12/28/24 12:07 AM Result Value Ref Range RBC Morphology abnormal Poikilocytes Slight (A) (none) Polychromasia Slight (A) (none) Stomatocytes Slight (A) (none) Neutrophils % 83 (H) 38 - 82 % Bands % 1 (H) <=0 % Lymphocytes % 10 (L) 15 - 45 % Monocytes % 5 5 - 13 % Myelocytes % 1 (H) <=0 % Absolute Neutrophil Count 11.3 (H) 1.8 - 7.5 10*3/uL Bands Absolute 0.1 (H) <=0.0 10*3/uL Lymphocytes Absolute 1.4 1.0 - 4.3 10*3/uL Monocytes Absolute 0.7 0.0 - 0.9 10*3/uL Myelocytes Absolute 0.1 (H) <=0.0 10*3/uL Neutrophils Manual 83 Lymphocytes Manual 10 Monocytes Manual 5 Eosinophils Manual Basophils Manual Bands Manual 1 Metamyelocytes Manual Myelocytes Manual 1 Promyelocytes Manual Blasts Manual Atypical Lymphocytes Manual Unclassified Cells, Manual Manual nRBC per 100 Cells 3 (H) 0 - 2 % Blood Gas, Arterial Collection Time: 12/28/24 1:05 AM Result Value Ref Range pH, Arterial 7.478 (H) 7.350 - 7.450 pCO2, Arterial 47.1 (H) >35.0 - <45.0 mm Hg pO2, Arterial 95.1 80.0 - 100.0 mm Hg HCO3, Arterial 34.1 (H) 21.0 - 25.0 mmol/L O2 Sat, Arterial 96.6 95.0 - 100.0 % Base Excess, Arterial 9.5 (H) -3.0 - 3.0 mmol/L CO2 Total 35.6 (H) 23.0 - 27.0 mmol/L Hgb, blood gas 10.1 Screen only g/dl Source Of Oxygen Ventilator Amount Of Oxygen 35% POCT glucose meter Collection Time: 12/28/24 2:42 AM Result Value Ref Range Glucose 175 (H) 70 - 100 mg/dL Radiology Personal review: CTH 12/27/24:1. No acute intracranial abnormality is identified. 2. Mild diffuse cortical volume loss. MRI brain 12/28/24: pending ASSESSMENT / PLAN/RECOMMENDATIONS: Concern for anoxic injury -CTH without significance -neurologically improved off sedation OSH cardiac arrest Acute hypoxic respiratory failure Pneumonia Septic shock ABRIL (resolved) Transaminites Rhabdomyolosis ETOH use Marijuana use Polysubstance abuse/Cocaine Current vape use 3 Decreased EF PLAN: -MRI brain not needed due to improvement in neurological exam -wean sedation as able -maintain euvolemic -Maintain euthermic -continue Q4H neurochecks with pupillometer -continuous EEG to be discontinued -no need for antiepileptic drugs -okay for seizure precautions Mother and Aunt updated at the bedside. No need for further neuro critical care suggestions at this time. We will sign off. Please reconsult if needed. I spent a total of 35 minutes of critical care time for this neurocritically ill patient who is at high risk for both clinical and neurological decline due to further brain injury, which can occur unpredictably and rapidly cause multi-organ dysfunction. In that time I reviewed the chart including MAR, labs, neuroimaging, other imaging studies and discussed my diagnostic impression and patient's plan of care with the consulting team and patient's family members/surrogate decision makers (in cases where the patient is incapacitated and unable to participate in their own care). [facility] Respiratory Care Department Progress Note Spontaneous Awakening Trial Wean Screen SpO2>/=88%: Yes (12/27/24303) FiO2</=50%: Yes (12/27/24303) PEEP </=8cmH2O: No (12/27/24303) HR <140 BPM: Yes (12/27/24303) RR </= 35 breaths/min: Yes (12/27/24303) MAP >/= 65mmHg: Yes (12/27/24303) Arterial pH >7.30: No (12/25/24412) Safety Screen Spontaneous Breathing Trial (SBT - RT) : Proceed with SBT - No exclusion criteria met (12/27/241638) Spontaneous Breathing Trial Weaning Start Time: 1630 (12/27/24 163) Weaning Tidal Volume: 249 mL (12/27/241638) Weaning Respiratory Rate: 4 (12/27/241638) Spontaneous Minute Volume (MV): 1.41 (12/27/24 163) Weaning Tolerance: Poor (12/27/241638) Weaning Stop Time: 1640 (12/27/241638) Weaning Duration (min): 10 (12/27/241638) Spontaneous Breathing Trial (SBT - RT) Outcome: Respiratory rate less than 8/min - SBT Failure (12/27/241638) Vent Settings Vent Mode: Assist control (12/27/241614) Mandatory Type: VC+ (12/27/241614) Resp Rate (Set): 18 (12/26/241624) Vt (Set, mL): 360 mL (12/26/241624) FiO2 (%): 35 % (12/27/241614) PEEP/CPAP (cm H2O): 12 cm H20 (12/26/241624) Inspiratory Time (sec): 0.8 sec (12/26/241624) Vitals MAP (mmHg): 81 (12/27/24 0400) Heart Rate: 77 (12/27/241614) Resp: 16 (12/27/241614) SpO2: 95 % (12/27/241614) Suctioning/Secretions Secretion Amount: Moderate (12/27/24 1600) Secretion Color: [place] tinged, Trevino (12/27/24 1600) Secretion Consistency: Thick (12/27/24 1600) ABG results Recent Labs 12/26/24 1203 12/26/24 1548 12/27/24 0319 12/27/24 1401 PHART 7.497* -- 7.521* 7.450 [id number] 38.7 -- 37.4 45.3* PO2ART 137.8* -- 144.9* 100.9* [id number] 29.3* -- 29.9* 30.8* [id number] Ventilator Ventilator Ventilator Ventilator Does this patient meet criteria for termination of mechanical ventilation No - Failed SBT Name of physician notified via secure chat or in person : Jamey Ellis (NA if patient did not meet criteria) Comments: Peep weaned to 8 this afternoon. SBT attempted but pt was still to sleepy to breath consistently on own. Attempted on PSV 8/8/35%. Pt also desats easily to 80s while on trial. Thank you for involving Respiratory in the care of this patient, Spiritual Care Note [facility] Palliative Care Patient Name:Chelsea Cole Chief Complaint: No chief complaint on file. Reason for visit: Ethics Officer Consult Services Provided To:patient and family Background and visit note: Introduced myself and pastoral care to patient's family. His mom,brother,girlfriend and grandmother were sitting in the lounge. They were doing ok. His mom shared she knows The Lord. She has prayed over him They told me he is not sabianist but grew up growing to latter-day. Prayed over patient for presence,comfort and healing. Will follow up. Is there spiritual distress? YES Comment: Interventions: Establish rapport, spiritual support provided, empathetic listening, validated feelings, partnership building, and respect for patients values. Care Plan: spiritual integration, spiritual reflection, and connect to higher power. Follow Up: PRN and when patient is able. 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 Cori Gandhi 12/28/24 [facility] [place] [facility] Cardiology /Electrophysiology Progress Note HPI / Interval History: Chelsea Cole is a 34 y.o. male with PMH of alcohol use, tobacco use, and cocaine use. Patient presented from [facility], reviewed information from chart: He was at his apartment drinking alcohol and smoking marijuana the evening of his presentation. Per family he had had some chest pain and palpitations earlier in the day. His girlfriend woke up and noted that he was sitting on the couch unresponsive with vomit on his shirt. She then called EMS who found him pulseless with rhythm VF. He was shocked with 120 J with next rhythm asystole. CPR lasted 12 minutes. They did note that he had a low blood pressure afterwards, as well as low blood sugar. They administered D10, and had intubated the patient. Normal CT head. Per EMS they gave 4 Narcan's initially on scene. Family noted he c/o CP and palpitations earlier that day. Pt has FMH CAD (maternal grandfather AL age 52 and AL in paternal grandmother). Found to have elevated creat, acute liver injury, and hyperkalemia. There was concern for possible aspiration, severe pneumonia/ARDS and CCM consulted. Bedside echo showed low normal LV function without focal WMA. Echocardiogram shows mild global biventricular systolic dysfunction. RSR prime noted on initial EKG. EP consulted who stated no evidence of Brugada and recommended ischemic eval when appropriate and possible primary prevention ICD but awaiting neuro recovery. Today, pt remains mechanically ventilated, sedated. Currently prone position. Girlfriend at bedside. Prone. Unresponsive. On vent. Chief Complaint: VF/arrest Assessment/Plan VF arrest treated with CPR, narcan - Labs on admit showed hypokalemia and then hyperkalemia. Echo showed mild global biv systolic dysfunction. Etiology possibly electrolyte abnormality vs. Aspiration pneumonia/sepsis vs. Substance use vs. Arrhythmia. Has FMH CAD and per family pt had CP/palps earlier in the day. Being treated for resp failure/ARDS/sepsis per [facility]. Remains intubated/sedated and in prone position. Recommend ischemic eval when clinically improved. EP also following and awaiting neuro recovery for possible primary prevention ICD. Repeat limited echo to see if reduced LV function (global) was brittany-arrest and if function has returned. If LVFx still depressed, will need GDMT for HFrEF. Awaiting neuro recovery prior to EP consult for ICD evaluation. Sepsis/Aspiration pneumonia/ARDS - Strep urine ag positive. PNA PCR positive for staph aureus (mec A negative), strep pneumo, H. Flu. Per CCM. Will update Dr. Jones Medications: [START ON 12/28/2024] chlorhexidine, , Topical, Daily [START ON 12/28/2024] folic acid, 1 mg, Per NG/OG Tube, Daily heparin, 5,000 Units, SubCUTAneous, 2 times per day Hydrocortisone Sod Suc (PF), 100 mg, IntraVENous, q8h insulin NPH, 5 Units, SubCUTAneous, q12h insulin regular, 0-12 Units, SubCUTAneous, q6h mupirocin, 1 Application, Nasal, BID pantoprazole, 40 mg, Oral, Nightly Or pantoprazole (ProtoNix) 40 mg in sodium chloride (PF) 0.9 % 10 mL injection, 40 mg, IntraVENous, Nightly piperacillin-tazobactam, 4,500 mg, IntraVENous, q6h sodium chloride 0.9%, 5-40 mL, IntraCATHeter, q8h thiamine (Vitamin B1) 250 mg in sodium chloride 0.9 % 100 mL IVPB, 250 mg, IntraVENous, q24h Followed by [START ON 12/31/2024] thiamine, 100 mg, Oral, Daily Infusion Medications: fentaNYL, 25-200 mcg/hr, Last Rate: 200 mcg/hr (12/27/24 0513) midazolam, 1-10 mg/hr, Last Rate: Stopped (12/27/24 1100) propofol, 5-50 mcg/kg/min, Last Rate: 50 mcg/kg/min (12/27/24 0923) vasopressin in D5W, 0.01-0.03 Units/min, Last Rate: 0.02 Units/min (12/27/24 0158) Physical Examination: Vitals: 12/27/24 0915 12/27/24 0930 12/27/24 0945 12/27/24 1000 BP: BP Location: Patient Position: Pulse: 77 76 75 72 Resp: 16 16 16 16 Temp: TempSrc: SpO2: 95% 96% 96% 97% Weight: Height: Intake/Output Summary (Last 24 hours) at 12/27/2024 1124 Last data filed at 12/27/2024 0800 Gross per 24 hour Intake 5014 ml Output 1123 ml Net 3891 ml Patient Vitals for the past 168 hrs: Weight Weight Method 12/27/24 0600 182 lb 1.6 oz (82.6 kg) -- 12/25/24 1217 153 lb (69.4 kg) -- 12/24/241953 153 lb 3.5 oz (69.5 kg) -- 12/24/241930 153 lb 3.5 oz (69.5 kg) Bed scale Physical Exam Constitutional: Appearance: He is ill-appearing. Interventions: He is sedated and intubated. Comments: Prone position HENT: Head: Normocephalic and atraumatic. Right Ear: External ear normal. Left Ear: External ear normal. Mouth/Throat: Comments: Orally intubated Cardiovascular: Rate and Rhythm: Normal rate and regular rhythm. Pulses: Normal pulses. Heart sounds: Normal heart sounds. Pulmonary: Effort: He is intubated. Breath sounds: Normal breath sounds. Abdominal: General: Bowel sounds are normal. Palpations: Abdomen is soft. Skin: General: Skin is warm and dry. Limited exam due to prone position Laboratory Tests: TROPONIN I, CONVENTIONAL SENSITIVITY CK Date Value Ref Range Status 12/27/2024 5,171 (H) 30 - 185 U/L Final 12/26/2024 7,535 (H) 30 - 185 U/L Final 12/26/2024 9,201 (H) 30 - 185 U/L Final 12/25/2024 11,279 (H) 30 - 185 U/L Final 12/25/2024 13,981 (H) 30 - 185 U/L Final TROPONIN I, HIGH SENSITIVITY Troponin HS Serial Baseline Date Value Ref Range Status 12/24/2024 1,053 (HH) <=35 ng/L Final Comment: In individuals presenting with symptoms > 2h, a baseline troponin <= 5 ng/L suggests acute cardiac injury is unlikely and further serial testing is generally not indicated. 2h Troponin HS (Serial 2nd Troponin) Date Value Ref Range Status 12/24/2024 1,633 (HH) <=35 ng/L Final Comment: Rising or falling troponin delta greater than 15 ng/L as compared to baseline value is significant for acute cardiac injury. Recent Labs 12/25/24 2352 12/26/24 0406 12/26/24 0753 12/26/24 1203 12/27/24 0320 NA 133* 133* 134* 133* 133* K 4.7 4.3 3.9 3.7 3.0* CL 98 98 96* 97* 97* CO2 21* 23 25 24 27 BUN 30* 27* 26* 26* 26* CREATININE 1.79* 1.63* 1.49* 1.39* 1.20 Recent Labs 12/24/24 2034 12/25/24 0147 12/25/24 0359 12/25/24 1120 12/26/24 0406 12/26/24 0557 12/26/24 1203 12/26/24 1548 12/27/24 0319 12/27/24 0320 WBC 2.4* -- 3.3* -- 8.8 -- -- -- -- 10.5 HGB 15.9 15.1 < > 13.2 < > 11.0* 11.6 10.2 10.1 12.0 9.6* HCT 43.9 -- 38.0* -- 29.8* -- -- -- -- 26.4* MCV 88.3 -- 86.2 -- 83.0 -- -- -- -- 85.7 PLT 229 -- 165 -- 117* -- -- -- -- 130* < > = values in this interval not displayed. Recent Labs 12/24/242033 BNP 466* Recent Labs 12/24/24 2239 TRIG 113 HDL 40* LDLCALC 103* CHOL 166 Lab Results Component Value Date TSH 1.89 12/24/2024 EF BP Date Value Ref Range Status 12/25/2024 45 (A) 55 - 100 % Final TRANSTHORACIC ECHOCARDIOGRAM (TTE) COMPLETE 12/25/2024 Left Ventricle: Left ventricle is smaller than normal. Normal wall thickness. Mildly reduced left ventricular systolic function. EF by 2D Simpsons Biplane is 45%. Mild global hypokinesis present. Right Ventricle: Right ventricle size is normal. Moderately reduced systolic function. No significant valvular abnormalities. Other reports reviewed: Lower ext duplex 12/26/24: No evidence of deep vein or superficial vein thrombosis in the right lower extremity. Vessels demonstrate normal compressibility, color filling, and phasic and spontaneous flow. No evidence of deep vein or superficial vein thrombosis in the left lower extremity. Vessels demonstrate normal compressibility, color filling, and phasic and spontaneous flow. CT Head 12/27/24: Pending Cardiac Tests: ECG: IMPRESSION: Sinus rhythm ST elev, probable normal early repol pattern Telemetry findings reviewed: SR 60-70s EF BP Date Value Ref Range Status 12/25/2024 45 (A) 55 - 100 % Final Elzbieta Vick, EJ - ADMINISTRATIVE COURT JUSTICE Date Of Service 12/27/2024 I, Dr. Bebo Jones, saw and evaluated the patient on 12/27/2024. I personally obtained the pérez and critical portions of the history and physical exam. I reviewed the labs, imaging studies, and electronic medical record. I reviewed the JORGE's documentation, and discussed the patient with the JORGE. I agree with the JORGE's medical decision making and have edited the note to reflect my clinical findings and my assessment and plan. I performed a substantive portion of the care of this patient. ICU Progress Note Name: Chelsea Cole : 1990(34 y.o.) Date: 12/27/24 Team: MICU Attending: Dr. Jamey Ellis Subjective: Hospital Summary: H knowledge deficit Admitted 12/24/2024 by CCU. Significant other woke up to find patient unresponsive, covered in vomit after night of drinking Upon EMS evaluation in cardiac arrest. In Vfib CPR x12 minutes, 2 rounds of Epi. ROSC obtained Tx from [place] to [facility] Found to have severe pneumonia,ARDS. Proning initiated CK elevated to 15,000 TTE showing EF 45% Interval Events: Patient still proned and heavily sedated at bedside. Only vaso running, now off levo. Plan for neuro/ palliative eval, as well as finishing proning and weaning sedation. Scheduled Meds:Acetaminophen, 650 mg, Per G Tube, q6h Or acetaminophen, 650 mg, Rectal, q6h folic acid 1 mg in dextrose 5 % 50 mL IVPB, 1 mg, IntraVENous, Daily heparin, 5,000 Units, SubCUTAneous, 2 times per day Hydrocortisone Sod Suc (PF), 100 mg, IntraVENous, q8h insulin NPH, 5 Units, SubCUTAneous, q12h insulin regular, 0-12 Units, SubCUTAneous, q6h mupirocin, 1 Application, Nasal, BID pantoprazole, 40 mg, Oral, Nightly Or pantoprazole (ProtoNix) 40 mg in sodium chloride (PF) 0.9 % 10 mL injection, 40 mg, IntraVENous, Nightly piperacillin-tazobactam, 4,500 mg, IntraVENous, q6h potassium chloride, 40 mEq, IntraVENous, Once thiamine (Vitamin B1) 250 mg in sodium chloride 0.9 % 100 mL IVPB, 250 mg, IntraVENous, q24h Followed by [START ON 12/31/2024] thiamine, 100 mg, Oral, Daily Continuous Infusions:fentaNYL, 25-200 mcg/hr, Last Rate: 200 mcg/hr (12/27/24512) midazolam, 1-10 mg/hr, Last Rate: 2 mg/hr (12/26/241946) norepinephrine, 0.01-3.3 mcg/kg/min, Last Rate: Stopped (12/26/242339) propofol, 5-50 mcg/kg/min, Last Rate: 50 mcg/kg/min (12/27/24329) vasopressin in D5W, 0.01-0.03 Units/min, Last Rate: 0.02 Units/min (12/27/24157) Objective: Last Vitals: BP MAP 100/69 (12/27/24399) 81 (12/27/24399) Arterial BP MAP 96/63 (12/27/24729) 72 mmHg (12/27/24729) Temp (!) 35.6 C (96.1 F) (12/27/24399) Pulse 71 (12/27/24729) Resp 16 (12/27/24729) SpO2 98 % (12/27/24729) Weight 182 lb 1.6 oz (82.6 kg) (12/27/24599) BMI Body mass index is 29.39 kg/m . Oxygen Delivery: Invasive Lines / Tubes / Drains: CVC Triple Lumen 12/25/24 Non-tunneled Left Subclavian (Active) Number of days: 2 Peripheral IV 12/24/24 Left Antecubital (Active) Number of days: 3 Peripheral IV 12/24/24 Anterior;Left;Proximal Forearm (Active) Number of days: 3 NG/OG Tube Orogastric Center mouth (Active) Number of days: 3 Urethral Catheter Temperature probe (Active) Number of days: 3 ETT 7.5 mm (Active) Number of days: 3 Arterial Line 12/24/24 Right Radial (Active) Number of days: 2 Constitutional: General Appearance []WDWN []Obese []Cachectic []Thin [x]Ill Eyes: Inspection of Pupils/Irises Pupils round and react: [x]Yes- ~3mm b/l and reactive []No Sclera: []Icteric [x]Non-Icteric Inspection of Conjunctiva/Lids Conjunctiva: []Injected [x]Non-Injected Lids: [x]Intact []Lesion Present ENT/Mouth: External Inspection of ears/nose [x] Normal [] Scar/Lesion/Mass Inspection of teeth/lips/gums Dentition: [x][place] Teeth []Dentures Lips/Gums: [x]Intact []Lesion Present Mucosa: [][place] [x]Moist []Dry Neck: External Appearance Overall Appearance: [x]Normal []Lesion/Mass/Crepitus Present Trachea midline: [x]Yes []No Thyroid [x]Normal []Enlarged []Tender []Mass []Absent Respiratory: Respiratory effort []Labored []Non-Labored [x] Mechanically-Ventilated Auscultation [x]Clear []Crackles []Wheezes []Rhonchi Cardiovascular: Auscultation Rate: [x]Regular []Irregular []Tachycardia []Bradycardia Rhythm: [x]Regular []Irregular Murmur: []Present [x]Absent Extremities Peripheral Edema: []Present [x]Absent Varicosities: []Present [x]Absent Gastrointestinal: Abdomen Palpation: [x]Soft []Firm []Tender [x]Non-Tender []Distended [x]Non-distended Mass: []Present [x]Absent Bowel Sounds: [x]Present []Absent Hernia: []Present [x]Absent Liver/Spleen: []Hepatosplenomegaly [x]Organomegaly Absent Musculoskeletal: Inspection of Digits and Nails Cyanosis: []Present [x]Absent Clubbing: []Present [x]Absent Ischemia: []Present [x]Absent Infection: []Present [x]Absent Skin: Inspection [x]Normal []Rash []Lesion []Ulcer Palpation [x]Warm []Cool []Dry []Clammy []Nodules []Induration []Skin-tightening Cap-Refill: [] <3 sec [] >3 seconds (delayed) Neurologic: Intubated & sedated [] Sensation grossly intact Psych: Mental Status Alert: [x]Yes [] No Oriented: []x0 []X1 []X2 [x]x3 Mood/Affect [x]Normal []Flat []Agitated []Depressed []Anxious []Calm []Sedated []NAD [facility] within last 24 hours- BMP: Recent Labs 12/25/24 1120 12/25/24 1634 12/26/24 0406 12/26/24 0753 12/26/24 1203 12/27/24 0320 NA 137 < > 133* 134* 133* 133* K 4.5 < > 4.3 3.9 3.7 3.0* CL 104 < > 98 96* 97* 97* CO2 22 < > 23 25 24 27 BUN 28* < > 27* 26* 26* 26* CREATININE 2.04* < > 1.63* 1.49* 1.39* 1.20 CALCIUM 7.2* < > 8.0* 7.8* 8.3* 8.4 MG 1.2* -- 2.3 -- -- 2.3 PHOS 3.8 -- 4.2 -- -- 3.2 < > = values in this interval not displayed. LFTs: Recent Labs 12/25/24 0118 12/25/24 0359 12/26/24 0753 12/26/24 1203 12/27/24 0320 AST -- < > 273* 241* 212* ALT -- < > 211* 195* 181* PROT -- < > 4.9* 4.7* 5.3* ALBUMIN -- < > 2.3* 2.1* 2.2* BILITOT -- < > 0.4 0.4 0.5 BILIRUBINU Negative -- -- -- -- ALKPHOS -- < > 25* 27* 28* < > = values in this interval not displayed. Glucose: Recent Labs 12/25/24 0110 12/25/24 0359 12/25/24 0658 12/25/24 0826 12/25/24 1026 12/25/24 1120 12/25/24 1634 12/25/24 2036 12/25/24 2352 12/26/24 0341 12/26/24 0406 12/26/24 0753 12/26/24 0848 12/26/24 1203 12/26/24 1539 12/26/24 2100 12/27/24 0320 12/27/24 0322 GLUCOSE -- < > -- < > -- 221* 271* 282* 257* -- 202* 223* -- 185* -- -- 153* -- POCGLU 87 -- 162* -- 250* -- -- -- -- 223* -- -- 196* -- 174* 157* -- 165* BHYDRXBUT -- -- -- -- -- -- -- -- 1.8 -- -- -- -- -- -- -- -- -- < > = values in this interval not displayed. Assessment and Plan: Principal Problem: Cardiac arrest (HCC) A&P: Acute hypoxic respiratory failure ARDS Bilateral pneumonia, strep pneumonia & haemophilus Bilateral pulmonary opacities Septic shock S/p proning & paralyzing 12/25-12/27 Overall improving Increasing effusions- will give one dose lasix. De-escalating drips. Avoid further IVF. Continue zosyn for now. continue hydrocortisone stress dose Continue Lung protective ventilation Fully off pressors this afternoon- if patient requires will add levophed Cardiac arrest/ Vfib arrest EP consulted; recommend ischemic evaluation following recovery as well as primary prevention ICD prior to discharge Continue targeted temperature management Hold further sedation as able and monitor neurologic recovery Palliative consulted Neurology consulted- CT head negative today [place] Criteria=> Mild ARDS, positive prognostic value Acute kidney injury Improving Will give one dose furosemide today given fluid overload state NAGMA, resolved Rhabdomyolysis Transaminitis Improving Tylenol discontinued T2DM with hyperglycemia Insulin reg in place Tobacco abuse Alcohol use Drug screen benzo, methadone, fentanyl pos Ethanol<10 On folic acid, thiamine Thrombocytopenia Maintain heparin SQ for now, low 4T score FEN: tube feeds to goal DVT prophylaxis: heparin SQ GI prophylaxis: pantoprazole Critical Care Time: Total critical care time caring for this patient with life threatening, unstable organ failure, including direct patient contact, management of life support systems, review of data including imaging and labs, discussions with other team members and physicians, excluding procedures. Cosigned by Jamey Ellis MD at 12/27/2024 2:28 PM EDT Associated attestation - Jamey Ellis MD - 12/27/2024 2:28 PM EDT I have personally performed a [id number]-[id number] diagnostic evaluation on this patient on date of service 12/27/24. History, labs, imaging studies, and electronic medical record have been reviewed by me. This note documented by the [x]greenhouse manager []JORGE reflects my history, exam, and medical decision making. I have reviewed and agree with the care plan. Changes were made in the orders as necessary. ROS documentation was reviewed and negative unless otherwise stated in HPI. Assessment: S/p VFA, risk HIE, on TTM Acute hypox resp fail d/t severe CAP, ARDS, shock ABRIL, rhabdo DM2 w/ hypergly Polysubst abuse Plan: Marked improvement -->s/p prone, vent parameters weaned aggressively -->off pressors Appreciate palliative and neuroCC input -->minimize sedation, allow awake -->euthermia If agitation leading to vent issues -->OK w/ precedex Critical care time spent reviewing labs/films, examining patient, collaborating with other physicians but excluding procedures for life threatening organ failure is 32 minutes. [facility] Respiratory Care Department Progress Note Spontaneous Awakening Trial Wean Screen SpO2>/=88%: Yes (12/27/24303) FiO2</=50%: Yes (12/27/24303) PEEP </=8cmH2O: No (12/27/24303) HR <140 BPM: Yes (12/27/24303) RR </= 35 breaths/min: Yes (12/27/24303) MAP >/= 65mmHg: Yes (12/27/24303) Arterial pH >7.30: No (12/25/24412) Safety Screen Spontaneous Breathing Trial (SBT - RT) : PEEP is greater than 8 cmH2O (PRONED) (12/27/24303) Spontaneous Breathing Trial Vent Settings Vent Mode: Assist control (12/27/24214) Mandatory Type: VC+ (12/27/24214) Resp Rate (Set): 18 (12/26/241624) Vt (Set, mL): 360 mL (12/26/241624) FiO2 (%): 40 % (12/27/24214) PEEP/CPAP (cm H2O): 12 cm H20 (12/26/241624) Inspiratory Time (sec): 0.8 sec (12/26/241624) Vitals MAP (mmHg): 79 (12/27/24 0000) Heart Rate: 66 (12/27/24214) Resp: 14 (12/27/24 0200) SpO2: 99 % (12/27/24214) Suctioning/Secretions Secretion Amount: Small (12/25/241999) ABG results Recent Labs 12/25/24 2353 12/26/24 0557 12/26/24 1203 12/26/24 1548 PHART 7.472* 7.441 7.497* -- CIF1DLW 34.5* 42.0 38.7 -- PO2ART 136.2* 90.7 137.8* -- QPB1BNA 24.7 28.0* 29.3* -- [id number] Ventilator Ventilator Ventilator Ventilator Does this patient meet criteria for termination of mechanical ventilation No - Failed Wean Screen Comments: Thank you for involving Respiratory in the care of this patient, Vancomycin therapy has been discontinued by Dr. Maverick Miramontes on 12/26/24. Thank you for the consult. Pharmacy signing off for vancomycin dosing. Maria Luisa Peralta PharmD Date: 12/26/24 Time: 5:45 PM Pt supined ICU Progress Note Name: Chelsea Cole : 12/27/1989(34 y.o.) Date: 12/26/24 Team: MICU Attending: Dr. Jamey Ellis Subjective: Hospital Summary: H knowledge deficit Admitted 12/24/2024 by CCU. Significant other woke up to find patient unresponsive, covered in vomit after night of drinking Upon EMS evaluation in cardiac arrest. In Vfib CPR x12 minutes, 2 rounds of Epi. ROSC obtained Tx from [place] to [facility] Found to have severe pneumonia,ARDS. Proning initiated CK elevated to 15,000 TTE showing EF 45% Interval Events: Patient paralyzed, proned and sedated at bedside. Vasopressin @ 0.03, levo @ 0.02 Scheduled Meds:Acetaminophen, 650 mg, Per G Tube, q6h Or acetaminophen, 650 mg, Rectal, q6h calcium gluconate, 4,000 mg, IntraVENous, Once cefepime, 2,000 mg, IntraVENous, q8h folic acid 1 mg in dextrose 5 % 50 mL IVPB, 1 mg, IntraVENous, Daily heparin, 5,000 Units, SubCUTAneous, 2 times per day Hydrocortisone Sod Suc (PF), 100 mg, IntraVENous, q8h insulin NPH, 5 Units, SubCUTAneous, q12h insulin regular, 0-12 Units, SubCUTAneous, q6h mupirocin, 1 Application, Nasal, BID pantoprazole, 40 mg, Oral, Nightly Or pantoprazole (ProtoNix) 40 mg in sodium chloride (PF) 0.9 % 10 mL injection, 40 mg, IntraVENous, Nightly thiamine (Vitamin B1) 500 mg in sodium chloride 0.9 % 100 mL IVPB, 500 mg, IntraVENous, q8h Followed by thiamine (Vitamin B1) 250 mg in sodium chloride 0.9 % 100 mL IVPB, 250 mg, IntraVENous, q24h Followed by [START ON 12/31/2024] thiamine, 100 mg, Oral, Daily vancomycin, 1,750 mg, IntraVENous, q24h Objective: Last Vitals: BP MAP 100/68 (12/26/24 0800) 79 (12/26/24 0800) Arterial BP MAP 95/64 (12/26/24 0700) 75 mmHg (12/26/24 0700) Temp (!) 35.8 C (96.4 F) (12/26/24 0400) Pulse 70 (12/26/24 0700) Resp 18 (12/26/24 07) SpO2 96 % (12/26/24699) Weight 153 lb (69.4 kg) (12/25/24 1217) BMI Body mass index is 24.69 kg/m . I/O: 12/25 699 - 12/26 658 In: 6873 [I.V.:6873] Out: 810 [Urine:810] Ventilator: Resp Rate (Set): 18 Vt (Set, mL): 360 mL FiO2 (%): 40 % PEEP/CPAP (cm H2O): 12 cm H20 Inspiratory Time (sec): 0.8 sec Oxygen Delivery: Invasive Lines / Tubes / Drains: CVC Triple Lumen 12/25/24 Non-tunneled Left Subclavian (Active) Number of days: 1 Peripheral IV 12/24/24 Left Antecubital (Active) Number of days: 2 Peripheral IV 12/24/24 Anterior;Left;Proximal Forearm (Active) Number of days: 2 NG/OG Tube Orogastric Center mouth (Active) Number of days: 2 Urethral Catheter Temperature probe (Active) Number of days: 2 ETT 7.5 mm (Active) Number of days: 2 Arterial Line 12/24/24 Right Radial (Active) Number of days: 1 Constitutional: General Appearance []WDWN []Obese []Cachectic []Thin [x]Ill ENT/Mouth: External Inspection of ears/nose [x] Normal [] Scar/Lesion/Mass Neck: External Appearance Overall Appearance: [x]Normal []Lesion/Mass/Crepitus Present Trachea midline: [x]Yes []No Thyroid [x]Normal []Enlarged []Tender []Mass []Absent Respiratory: Respiratory effort []Labored []Non-Labored [x] Mechanically-Ventilated Auscultation [x]Clear- posteriorly []Crackles []Wheezes []Rhonchi Cardiovascular: Auscultation Rate: [x]Regular []Irregular []Tachycardia []Bradycardia Rhythm: [x]Regular []Irregular Murmur: []Present [x]Absent Extremities Peripheral Edema: []Present [x]Absent Varicosities: []Present [x]Absent Gastrointestinal: Abdomen Deferred due to proned status Musculoskeletal: Inspection of Digits and Nails Cyanosis: []Present [x]Absent Clubbing: []Present [x]Absent Ischemia: []Present [x]Absent Infection: []Present [x]Absent Skin: Inspection [x]Normal []Rash []Lesion []Ulcer Palpation [x]Warm []Cool []Dry []Clammy []Nodules []Induration []Skin-tightening Cap-Refill: [] <3 sec [] >3 seconds (delayed) Neurologic: Proned, paralyzed & sedated Psych: Mood/Affect []Normal []Flat []Agitated []Depressed []Anxious []Calm [x]Sedated []NAD [facility] within last 24 hours- BMP: Recent Labs 12/24/24203312/24/24223812/25/24 1120 12/25/24 1634 12/25/24 2352 12/26/24 0406 12/26/24 0753 NA 136 < > 137 < > 133* 133* 134* K 6.5* < > 4.5 < > 4.7 4.3 3.9 CL 108* < > 104 < > 98 98 96* CO2 18* < > 22 < > 21* 23 25 BUN 23* < > 28* < > 30* 27* 26* CREATININE 2.14* < > 2.04* < > 1.79* 1.63* 1.49* CALCIUM 7.8* < > 7.2* < > 7.9* 8.0* 7.8* MG 2.1 -- 1.2* -- -- 2.3 -- PHOS 3.9 -- 3.8 -- -- 4.2 -- < > = values in this interval not displayed. Procal: Recent Labs 12/24/242033 PROCAL 3.32* Assessment and Plan: Principal Problem: Cardiac arrest (HCC) A&P: Acute hypoxic respiratory failure ARDS Bilateral pneumonia, strep pneumonia & haemophilus Bilateral pulmonary opacities Septic shock Continue proning per protocol & paralyzing. Initiated 12/25/2024 @ 1800. Will complete 36 hours 12/27 @0600 Consider narrowing abx in future, continue broad spectrum for now Agree with hydrocortisone stress dose Lung protective ventilation Will run patient fluid even for now, diuresis limited by high pressor support Wean levo as able, maintain vaso until levo is off Sepsis core measure documentation per admitting team Cardiac arrest/ Vfib arrest Cardiology following- recommend EP consult and cardiac CTA once patient is medically stable CT head 12/24 @1400 negative, will consider further imaging as clinically indiated Continue EEG continuous monitoring Continue targeted temperature management Plan to hold sedation & paralysis / Palliative consulted [place] Criteria=> Mild ARDS, positive prognostic value Acute kidney injury Stable, though poor urine output. Suspect ATN Continue to run even, close monitoring I/Os. Consider diuretics going forward NAGMA, resolved Stop bicarb gtt Rhabdomyolysis Transaminitis Perhaps daily Cks for now Has received significant in's run even for now T2DM with hyperglycemia Insulin reg in place Tobacco abuse Alcohol use Drug screen benzo, methadone, fentanyl pos Ethanol<10 On folic acid, thiamine Thrombocytopenia Maintain heparin SQ for now, low 4T score FEN: start trickle feeds goal 20cc/hr DVT prophylaxis: heparin SQ GI prophylaxis: pantoprazole Critical Care Time: Total critical care time caring for this patient with life threatening, unstable organ failure, including direct patient contact, management of life support systems, review of data including imaging and labs, discussions with other team members and physicians, excluding procedures. Cosigned by Jamey Ellis MD at 12/26/2024 7:23 PM EDT Associated attestation - Jamey Ellis MD - 12/26/2024 7:23 PM EDT I have personally performed a cuat-vp-lyir diagnostic evaluation on this patient on date of service 12/26/24. History, labs, imaging studies, and electronic medical record have been reviewed by me. This note documented by the [x]greenhouse manager []JORGE reflects my history, exam, and medical decision making. I have reviewed and agree with the care plan. Changes were made in the orders as necessary. ROS documentation was reviewed and negative unless otherwise stated in HPI. Assessment: S/p VFA, risk HIE, on TTM Acute hypox resp fail d/t severe CAP, ARDS, shock ABRIL, rhabdo DM2 w/ hypergly Polysubst abuse Plan: Likely stop prone in AM -->stop paralytic and wean sedation at that time Abx adjusted, vent adjusted Continue steroids for shock/ CAP Wean pressors Consult Palliative and NeuroCC Monitor for drug effects, ADM later if responds Updated family at bedside Critical care time spent reviewing labs/films, examining patient, collaborating with other physicians but excluding procedures for life threatening organ failure is 33 minutes. Pharmacy to Dose Vancomycin - Progress Note Lab Results Component Value Date CREATININE 1.63 (H) 12/26/2024 BUN 27 (H) 12/26/2024 WBC 8.8 12/26/2024 VANCOTROUGH 14.4 12/26/2024 Doses, serum creatinine, and vancomycin levels interfaced automatically to [employer] and data has been analyzed and interpreted. Infectious Diagnosis: pneumonia+sepsis Est CrCl: 63 mL/min (Cockcroft-Gault) Assessment: Current regimen vancomycin 1250 mg every 24 hours Predicted AUC = 402 mg/L*hr (goal 400-600 mg/L*hr) PAUC = 51% (probability that AUC is >400 mg/L*hr) Pconc = 0% (probability that Ctrough is above 20 mcg/mL (toxicity)) Plan: Renal fxn recovering. Vancomycin level drawn this AM lower than expected. Current dose at the lower end of therapeutic range, will become subtherapeutic with any further renal recover. Will increase vancomycin regimen to 1750mg q 24hr. Will check new level 12/28 and further adjust regimen as needed. DATE: 12/26/24 TIME: 7:54 AM Tremaine Montoya RPh Clinical Pharmacist Available via Secure Chat Images from the original note were not included. PHYSICAL THERAPY [facility] Name/MRN: Kate Cole ([id number]) Date: 12/26/2024 PT orders received, chart review performed. Patient currently with strict bedrest orders. Will hold PT eval and await updated activity orders. Renetta Jesus PT Images from the original note were not included. [facility] CCU PROGRESS NOTE Patient Name: Chelsea Cole : 12/27/1989 Chelsea Cole is a 34 y.o. male with PMH of alcohol use, tobacco use, and cocaine use. Per family reports, patient was with friend smoking marijuana and drinking alcohol. Friend woke up to patient with vomit on shirt, nonresponsive and called EMS. Patient presented from [facility], reviewed information from paper chart: Upon EMS arrival, bystanders stated that he had a pulse, but when they checked he was pulseless. He was found to be in ventricular fibrillation so he was defibrillated at 120 J into asystole. They performed CPR for 12 minutes and 2 rounds of epinephrine were given prior to return of spontaneous circulation. They did note that he had a low blood pressure afterwards, as well as low blood sugar. They administered D10, and had intubated the patient. Normal CT head. Per EMS they gave 4 Narcan's initially on scene. At [place], patient's UDS positive for methadone. Additionally was hypokalemic to 2.2. Patient was transferred to [facility] from [place]. Bedside echo on arrival with low normal LV function without focal WMAs. ICU consulted for vent management, concern for aspiration, possible sepsis and polysubstance use. Patient was found to have Pneumonia pcr +Staph, Strep, Haemophilus. Additionally found to have rhabdomyolysis, ABRIL, and NAGMA and is currently on bicarb gtt. Given concern for ARDS, potentially 2/2 aspiration pneumonia, patient was proned overnight. Subjective: Interval History: ICU held bicarb overnight then later continued due to elevated CK. Otherwise no acute overnight events. Patient currently proned on exam, intubated and sedated. Review of Systems: Review of Systems Unable to perform ROS: Intubated Inpatient Medications: Scheduled Meds:Acetaminophen, 650 mg, Per G Tube, q6h Or acetaminophen, 650 mg, Rectal, q6h calcium gluconate, 4,000 mg, IntraVENous, Once cefepime, 2,000 mg, IntraVENous, q12h folic acid 1 mg in dextrose 5 % 50 mL IVPB, 1 mg, IntraVENous, Daily heparin, 5,000 Units, SubCUTAneous, 2 times per day Hydrocortisone Sod Suc (PF), 100 mg, IntraVENous, q8h insulin NPH, 5 Units, SubCUTAneous, q12h insulin regular, 0-12 Units, SubCUTAneous, q6h mupirocin, 1 Application, Nasal, BID pantoprazole, 40 mg, Oral, Nightly Or pantoprazole (ProtoNix) 40 mg in sodium chloride (PF) 0.9 % 10 mL injection, 40 mg, IntraVENous, Nightly thiamine (Vitamin B1) 500 mg in sodium chloride 0.9 % 100 mL IVPB, 500 mg, IntraVENous, q8h Followed by thiamine (Vitamin B1) 250 mg in sodium chloride 0.9 % 100 mL IVPB, 250 mg, IntraVENous, q24h Followed by [START ON 12/31/2024] thiamine, 100 mg, Oral, Daily vancomycin, 1,250 mg, IntraVENous, q24h Continuous Infusions:cisatracurium (PF) (Nimbex) 200 mg in sodium chloride 0.9 % 100 mL infusion, 0.5-10 mcg/kg/min, Last Rate: 1 mcg/kg/min (12/26/24 0508) fentaNYL, 25-200 mcg/hr, Last Rate: 200 mcg/hr (12/26/24 0346) midazolam, 1-10 mg/hr, Last Rate: 2 mg/hr (12/26/24 0545) norepinephrine, 0.01-3.3 mcg/kg/min, Last Rate: 0.04 mcg/kg/min (12/26/24 0630) propofol, 5-50 mcg/kg/min, Last Rate: 50 mcg/kg/min (12/26/24 0253) sodium bicarbonate 150 mEq in sterile water 1,000 mL infusion, 100 mL/hr, Last Rate: 100 mL/hr (12/26/24 0330) vasopressin in D5W, 0.01-0.03 Units/min, Last Rate: 0.03 Units/min (12/26/24 0035) PRN Meds used in the last 24hr: Versed Objective: Physical Examination: BP (!) 87/58 Pulse 69 Temp (!) 35.8 C (96.4 F) (Esophageal) Resp 18 Ht 5' 6" (1.676 m) Wt 153 lb (69.4 kg) SpO2 100% BMI 24.69 kg/m Intake/Output Summary (Last 24 hours) at 12/26/2024 0632 Last data filed at 12/26/2024 0400 Gross per 24 hour Intake 4149 ml Output 680 ml Net 3469 ml Physical Exam Constitutional: General: He is not in acute distress. Comments: Proned, intubated and sedated on paralytic HENT: Head: Normocephalic and atraumatic. Mouth/Throat: Mouth: Mucous membranes are moist. Pulmonary: Effort: No respiratory distress. Comments: intubated Genitourinary: Comments: Alfaro intact draining yellow urine Musculoskeletal: Right lower leg: No edema. Left lower leg: No edema. Comments: All four extremities soft, no edema appreciated. Limited physical exam due to prone position. Pertinent Labs: BMP: Lab Results Component Value Date NA 133 (L) 12/26/2024 K 4.3 12/26/2024 CL 98 12/26/2024 CO2 23 12/26/2024 BUN 27 (H) 12/26/2024 CREATININE 1.63 (H) 12/26/2024 GLUCOSE 202 (H) 12/26/2024 CALCIUM 8.0 (L) 12/26/2024 MG 2.3 12/26/2024 PHOS 4.2 12/26/2024 CBC: Lab Results Component Value Date WBC 8.8 12/26/2024 HGB 11.6 12/26/2024 HCT 29.8 (L) 12/26/2024 MCV 83.0 12/26/2024 PLT 117 (L) 12/26/2024 Cardiac profile: CK Date Value Ref Range Status 12/25/2024 11,279 (H) 30 - 185 U/L Final 12/25/2024 13,981 (H) 30 - 185 U/L Final 12/25/2024 13,800 (H) 30 - 185 U/L Final 12/25/2024 15,846 (H) 30 - 185 U/L Final 12/24/2024 14,329 (H) 30 - 185 U/L Final Coagulation: Lab Results Component Value Date INR 1.2 (H) 12/24/2024 Lipid panel: Lab Results Component Value Date CHOL 166 12/24/2024 HDL 40 (L) 12/24/2024 TRIG 113 12/24/2024 Other: Lab Results Component Value Date TSH 1.89 12/24/2024 Chest Imaging: CXR: === 12/24/24 === XR CHEST 1 VIEW - Impression - 1. Endotracheal tube in satisfactory position. 2. New left subclavian line as described. The distal tip is in the SVC. 3. Bilateral infiltrates and effusions, right greater than left. 4. Prominence of the interstitium and central pulmonary vasculature consistent with moderate congestive heart failure/fluid overload. 5. The aeration of the lungs has improved. 6. No pneumothorax after line placement. Report Dictated on Electronically Signed By: Jesse Menendez MD Electronically Signed Date/Time: 12/25/2024 1:40 AM EDT Cardiac Studies: Telemetry findings reviewed: yes ECG: Encounter Date: 12/24/24 ECG 12 lead Result Value Heart Rate 92 QRSD Interval 85 QT Interval 328 QTC Interval 405 P [place] 64 QRS [place] 37 T Wave [place] 10 MI Interval 134 Impression Sinus rhythm Borderline T wave abnormalities Echo: 12/24/24 TRANSTHORACIC ECHOCARDIOGRAM (TTE) COMPLETE (CONTRAST/BUBBLE/3D PRN) 12/25/2024 1:40 PM (Final) Interpretation Summary Left Ventricle: Left ventricle is smaller than normal. Normal wall thickness. Mildly reduced left ventricular systolic function. EF by 2D Simpsons Biplane is 45%. Mild global hypokinesis present. Right Ventricle: Right ventricle size is normal. Moderately reduced systolic function. No significant valvular abnormalities. Signed by: Rory Virk MD on 12/25/2024 1:40 PM Cath Report: No results found for this or any previous visit. Assessment/Plan HF NYHA Class [] I [] II [] III [] IV []Unable to assess [] N/A Cardiac arrest V-fib arrest - troponins 1,053 to 1,633, suspect elevated 2/2 arrest rather than ACS. - TTE with EF 45%, global hypokinesis - Etiology for v fib arrest potentially 2/2 underlying arrhythmia vs electrolyte abnormality (was hypokalemic at [place], hyperkalemic here) vs substance use vs sepsis/pneumonia. Unlikely 2/2 cardiac ischemia given young age and lack of risk factors. - Patient currently hemodynamically stable. - EKG with NSR, possible ?Brugada pattern - Ethanol <10. Ethyl glucuronide positive. UDS positive for benzo, methadone, fentanyl - TSH normal - CT head w/o contrast negative at [place] Plan: - consult EP given concern for possible Brugada pattern on EKG - MICU to take over as primary and will continue to follow as consult service - Once patient is more medically stable, would recommend further evaluation with cardiac CTA to more definitively rule out ischemic cardiomyopathy (however low suspicion) and possible cardiac MRI. Acute hypoxemic respiratory failure - ventilator care per MICU, currently sedated with propofol and fentanyl - monitoring with ABG's per MICU - Consulted dietary for TF management Hypokalemia - improved Hyperkalemia - improved Hypomag - improved - per paper chart, came in with K of 2.2 at [place], Was given repletion. Has needed multiple doses of lokelma and insulin/D50 while here. - monitoring with q6 CMP, replete prn Aspiration pneumonia Septic Shock - Strep urine ag positive. PNA PCR positive for staph aureus (mec A negative), strep pneumo, H. Flu - procal 3.32 Plan: - Management per ICU team - currently on vancomycin and cefepime - blood cultures, respiratory cultures, urine cultures pending - levophed, vasopressin drips per ICU team - monitor daily CBC - TTM per MICU - Hydrocortisone per ICU team Metabolic acidosis -bicarb drip, trend with labs per ICU Transaminitis - Unknown etiology, likely 2/2 shock liver vs alcoholic hepatitis in the setting of alcohol use. - Maddrey's calculated at 15.9 - RUQ US with coarsened liver appearance suggesting cirrhosis. Decreased flow within splenic vein which may be technical and flow is noted on spectral doppler, could consider dedicated duplex liver US. - HIV and acute hepatitis panel normal Plan: - LFTs continue to downtrend today. Will continue to monitor with q6 CMP and if LFTs begin to rise, consider obtaining dedicated duplex ultrasound of liver. ABRIL Rhabdomyolysis - ABRIL likely component of prerenal plus hypotension and rhabdo - Fena 0.2% - Cr 2.14 at admission (unknown baseline), is improving with fluids. - Initial CK 14,329; is downtrending with most recent value of 9200. -abdominal ultrasound with normal appearing kidneys, no hydronephrosis Plan: - Management per MICU. Is currently on mIVF in form of bicarb gtt. - Trending CK q6h, consider additional small fluid bolus if CK increases Tobacco use Alcohol use History of drug use-cocaine - Ethanol <10. Ethyl glucuronide positive. UDS positive for benzo, methadone, fentanyl - continue high-dose thiamine and IV folic acid ordered - CIWA precautions - POCT every 6 hours - Goals of Care: Full Code - DVT Prophylaxis: HSQ q12h - GI Prophylaxis: Protonix daily - Diet: NPO, tube feeds when able - BMI Classification: Body mass index is 24.69 kg/m . - Disposition: Continue to monitor in CCU. Critical care medicine to become primary team today. Cosigned by Chante Pelayo MD at 12/26/2024 3:51 PM EDT Associated attestation - Chante Pelayo MD - 12/26/2024 3:51 PM EDT I, Dr. Chante Pelayo, saw and evaluated the patient 12/26/2024. I personally obtained the pérez and critical portions of the history and physical exam. I reviewed the chart and discussed the patient with the resident. I agree with the resident's medical decision making. In summary, 34-year-old man with tobacco and polysubstance abuse, admitted after being found unresponsive in bed by significant other. Per EMS, had ventricular fibrillation that responded to defibrillation, 2 strips not available. Echocardiogram shows mild global biventricular systolic dysfunction. RSR prime noted on initial EKG. Had significant hypokalemia on presentation, and then intermittent hyperkalemia since. Being treated for concurrent pneumonia and possible ARDS. -Management of respiratory failure, ARDS, infection per ICU team -Continue monitoring for any arrhythmias on telemetry. -Would recommend evaluation for coronary artery disease either with coronary CTA or invasive angiogram, EP consultation when clinically improved from acute respiratory illness and neurologic improvement [facility] Respiratory Care Department Progress Note Spontaneous Awakening Trial Wean Screen SpO2>/=88%: Yes (12/26/24312) FiO2</=50%: Yes (12/26/24312) PEEP </=8cmH2O: No (12/26/24312) HR <140 BPM: Yes (12/26/24312) RR </= 35 breaths/min: Yes (12/26/24312) MAP >/= 65mmHg: Yes (12/26/24312) Arterial pH >7.30: No (12/25/24412) Safety Screen Spontaneous Breathing Trial (SBT - RT) : PEEP is greater than 8 cmH2O (Patient currently prone) (12/26/24312) Spontaneous Breathing Trial Vent Settings Vent Mode: Assist control (12/26/24299) Mandatory Type: VC+ (12/26/24299) Resp Rate (Set): 26 (12/25/241539) Vt (Set, mL): 360 mL (12/25/241539) FiO2 (%): 40 % (12/26/24299) PEEP/CPAP (cm H2O): 12 cm H20 (12/25/241539) Inspiratory Time (sec): 0.8 sec (12/25/241539) Vitals MAP (mmHg): 85 (12/25/24 1622) Heart Rate: 73 (12/26/24299) Resp: 20 (12/25/24 1745) SpO2: 100 % (12/26/24299) Suctioning/Secretions Secretion Amount: Small (12/25/241999) ABG results Recent Labs 12/25/24 1635 12/25/246 12/25/24 2353 PHART 7.469* 7.565* 7.472* [id number] 31.5* 29.8* 34.5* PO2ART 206.2* 283.2* 136.2* [id number] 22.4 26.4* 24.7 [id number] Ventilator Ventilator Ventilator Does this patient meet criteria for termination of mechanical ventilation No - Failed Wean Screen Comments: Thank you for involving Respiratory in the care of this patient, Images from the original note were not included. Critical Care Reassessment Note See HPI / Daily Progress note for complete plan of care Briefly, Chelsea Cole is being treated in the ICU for aspiration PNA and VF arrest. I have assessed the patient at the bedside for ABRIL and rhabdomyolysis Brief Focused Exam: Proned and paralyzed. +Rhonchi. Improved oxygenation since proning. Creat with slow improvement. Decrease UOP. Assessment/Updated Plan of care A: Acute hypoxic respiratory failure VF arrest Aspiration pneumonia Septic shock ABRIL NAGMA/hyperchloremia Rhabdomyolysis Hyperglcemia P: Given ongoing elevated CK, favor continued bicarb gtt. Will change to free water base. Decrease set rate on vent and follow up pH. Check hemoglobin A1c. Add on BHB. Start ISS and low dose NPH. Goal glucose < 180. Follow I/O's. May benefit from lasix/de-resuscitation soon. BIS > 60 and needing versed pushes. Will start versed gtt for now. Additional Critical Care time at least 35 minutes Pt proned @ 17:45 Critical Care Progress Note Name: Chelsea Cole : 12/27/1989(34 y.o.) Admit Date: 12/24/2024 PCP: No primary care provider on file. Subjective: Chief Complaint: unresponsive, VF cardiac arrest, acute resp failure, ARDS No chief complaint on file. Interval History: Following for vent managment FIO2 80%, PEEP 12 Repeat ABG p/f ratio < 100 Sedated on propofol and fentanyl drips CXR 12/25: IMPRESSION: 1. Endotracheal tube in satisfactory position. 2. New left subclavian line as described. The distal tip is in the SVC. 3. Bilateral infiltrates and effusions, right greater than left. 4. Prominence of the interstitium and central pulmonary vasculature consistent with moderate congestive heart failure/fluid overload. 5. The aeration of the lungs has improved. 6. No pneumothorax after line placement Review of Systems Unable to perform ROS: Intubated Diet: NPO diet with enteral medications Medications: Scheduled Meds: cefepime, 2,000 mg, IntraVENous, q12h folic acid 1 mg in dextrose 5 % 50 mL IVPB, 1 mg, IntraVENous, Daily heparin, 5,000 Units, SubCUTAneous, 2 times per day Hydrocortisone Sod Suc (PF), 100 mg, IntraVENous, q8h lactated ringers, 1,000 mL, IntraVENous, Once mupirocin, 1 Application, Nasal, BID pantoprazole, 40 mg, Oral, Nightly Or pantoprazole (ProtoNix) 40 mg in sodium chloride (PF) 0.9 % 10 mL injection, 40 mg, IntraVENous, Nightly sodium zirconium cyclosilicate, 10 g, Oral, Once thiamine (Vitamin B1) 500 mg in sodium chloride 0.9 % 100 mL IVPB, 500 mg, IntraVENous, q8h Followed by [START ON 12/26/2024] thiamine (Vitamin B1) 250 mg in sodium chloride 0.9 % 100 mL IVPB, 250 mg, IntraVENous, q24h Followed by [START ON 12/31/2024] thiamine, 100 mg, Oral, Daily vancomycin, 1,250 mg, IntraVENous, q24h Continuous Infusions: fentaNYL, 25-200 mcg/hr, Last Rate: 200 mcg/hr (12/25/24 0842) norepinephrine, 0.01-3.3 mcg/kg/min, Last Rate: 0.34 mcg/kg/min (12/25/24 0250) propofol, 5-50 mcg/kg/min, Last Rate: 30 mcg/kg/min (12/25/24 0650) sodium bicarbonate 150 mEq in dextrose 5 % 1,000 mL infusion, 150 mL/hr, Last Rate: 150 mL/hr (12/25/24 0817) vasopressin in D5W, 0.01-0.03 Units/min, Last Rate: 0.03 Units/min (12/25/24 0327) Labs: CBC: Recent Labs 12/24/24203312/25/2414612/25/24358 WBC 2.4* -- 3.3* HGB 15.9 15.1 13.8 13.2 HCT 43.9 -- 38.0* PLT 229 -- 165 BMP: Recent Labs 12/24/24203312/24/24223812/25/2435812/25/24 0550 12/25/24 0826 NA 136 136 136 -- 134* K 6.5* 5.6* 4.4 -- 6.2* CL 108* 112* 109* -- 107 CO2 18* 16* 17* -- 20* BUN 23* 24* 25* -- 28* CREATININE 2.14* 1.80* 1.95* -- 2.12* GLUCOSE 73* 82 126* -- 184* CALCIUM 7.8* 7.2* 8.1* -- 7.5* CAION 3.90* -- -- 4.20* -- MG 2.1 -- -- -- -- PHOS 3.9 -- -- -- -- Ionized Calcium: Lab Results Component Value Date CAION 4.20 (L) 12/25/2024 CAION 3.90 (L) 12/24/2024 HEPATIC: Recent Labs 12/24/24223812/25/2435812/25/24 08 AST 659* 793* 696* ALT 414* 348* 325* ALBUMIN 3.3* 3.0* 3.0* BILITOT 0.3 0.3 0.3 ALKPHOS 33* 25* 23* LACTATE: Recent Labs 12/24/24203312/25/24145 LACTATE 3.6* 1.8 PROCALCITONIN: Recent Labs 12/24/242033 PROCAL 3.32* CORTISOL: No results for input(s): "CORTISOL" in the last 72 hours. TSH: Recent Labs 12/24/242033 TSH 1.89 TROPONIN: No results for input(s): "TROPONINI" in the last 72 hours. BNP: Recent Labs 12/24/242033 BNP 466* INR: Recent Labs 12/24/242238 INR 1.2* BLOOD GAS: Recent Labs 12/24/24203312/25/24 0147 PHART 7.255* 7.264* [id number] 42.7 46.3* PO2ART 57.9* 57.6* [id number] 18.5* 20.5* [id number] 87.6* 87.0* Objective: Vitals: Temp (24hrs), Av.6 C (99.7 F), Min:36.4 C (97.6 F), Max:38.5 C (101.3 F) BP MAP (!) 87/58 (12/25/24227) 64 (12/25/24227) Arterial BP MAP 91/61 (12/25/24599) 70 mmHg (12/25/24599) Temp (!) 38.5 C (101.3 F) (12/25/24515) Pulse 87 (12/25/24752) Resp 22 (12/25/24752) SpO2 100 % (12/25/24752) Weight 69.5 kg (153 lb 3.5 oz) (12/24/241953) BMI Body mass index is 27.14 kg/m . I/O: 12/24 699 - 12/25 658 In: 3771 [I.V.:3771] Out: 760 [Urine:760] Ventilator Settings: Resp Rate (Set): 25 Vt (Set, mL): 340 mL FiO2 (%): 80 % PEEP/CPAP (cm H2O): 12 cm H20 Inspiratory Time (sec): 0.8 sec PHYSICAL EXAM: General Appearance: []Non-toxic appearing []WDWN []Obese []Cachectic [x]Thin []ill Skin: Temperature [x]Warm []Cool Rash []Yes []No Tattoo(s) []Yes []No HEENT: +conjunctival edema, pupils appear symmetric Pupils round and react []Yes []No Sclera []Icteric []Non-Icteric Conjunctiva []Injected []Non-Injected Pinnae []Normal []Other Dentitian [][place]eth []Dentures []edentulous Oral Mucosa [x][place] []Moist []Dry Oral ETT [x]Present []Absent Neck: Trachea midline [x]Yes []No Thyromegaly []Yes []No Crepitus []Present []Absent Jvd []Present []Absent Lungs: []Clear [x]Crackles []Wheezes []Rhonchi Respiratory effort []Labored []Non-Labored [x]On Mechanical Vent Heart: Rate [x]Regular []Irregular []Tachycardia []Bradycardia Rhythm [x]Regular []Irregular Murmur []Present []Absent Peripheral Edema []Present []Absent Abdomen: [x]Soft Bowel Sounds [x]Present []Absent []Tender []Non-Tender []Distended [x]Non-distended Hernia []Present []Absent Organomegaly []Present []Absent []unable to assess 2/2 body habitus []Scar Extremities: Cyanosis []Present [x]Absent Moves each extremity ([]RUE []RLE []LUE []LLE) Neurologic: NUIQSUT []Yes []No Corneal reflexes []Present []Absent Plantar reflexes []Up []Down []Absent Withdraws to tactile []Yes []No Follows Commands []Yes [x]No []Unresponsive to verbal []Cranial nerves grossly intact []Sensation grossly intact Psych: Alert []yes [x]no Oriented []x0 []x1 []x2 []x3 Affect []Normal []Flat []Agitated []Anxious []Calm [x]Sedated []NAD Assessment and Plan: Acute hypoxemic resp failure, severe ARDS, aspiration pneumonia VF cardiac arrest s/p defibrillation, mildly reduced LVSF EF 45%, global hypokinesis Shock, septic with pneumonia Acute encephalopathy Pneumonia pcr +Staph, Strep, Haemophilus ABRIL non-oliguric, rhabdomyolysis, hyperkalemia Transaminitis related to shock RR 26, TV ~6 mL/kg, PEEP 12 Plan paralyze and prone, monitor ABG Since will be on paralytics, plan cEEG On abx, f/u cultures On pressors, hydrocortisone while on pressors Following alongside CCU team GI prophylaxis--PPI DVT prophylaxis--heparin sq Nutrition--per primary I have personally performed a face to face diagnostic evaluation on this patient today on 12/25/24. Labs, imaging studies, and electronic medical record notes on [employer] have been reviewed by me. This note reflects my history, exam and medical decision making. I have reviewed and agree with the care plan. Changes were made in the orders as necessary. ROS documentation was reviewed and negative unless otherwise stated in the HPI. My history, exam, assessment and plan are as above. Some elements copied from my notes, which have been updated where appropriate. All reflect current medical decision making from 12/25/24. Physical Exam listed was completed in entirely on 12/25/24 and is unchanged except where noted. Critical care time spent excluding separately billable procedures is 40 minutes. Pharmacy to Dose Vancomycin - Progress Note Lab Results Component Value Date CREATININE 1.95 (H) 12/25/2024 BUN 25 (H) 12/25/2024 WBC 3.3 (L) 12/25/2024 VANCOTROUGH 17.6 12/25/2024 Doses, serum creatinine, and vancomycin levels interfaced automatically to [employer] and data has been analyzed and interpreted. Infectious Diagnosis: Sepsis of unknown etiology Est CrCl: 51.5 mL/min (Cockcroft-Gault) Assessment: Current regimen vancomycin 1500 mg every 24 hours (21.6 mg/kg) Predicted AUC = 604 mg/L*hr (goal 400-600 mg/L*hr) PAUC = 99% (probability that AUC is >400 mg/L*hr) Pconc = 10% (probability that Ctrough is above 20 mcg/mL (toxicity)) Plan: Is the current dose therapeutic? [x] No - change current regimen to vancomycin 1250 mg every 24 hours (18 mg/kg) for predicted AUC 511 mg/L*hr, PAUC = 93% , and Pconc* = 3%. Obtain next level on 5/5 AM. Trend serum creatinine. Trend AUC using Bayesian Modeling. Orders placed. DATE: 12/25/24 TIME: 7:58 AM Anastasia Bunn RPh Clinical Pharmacist Available via Secure Chat Images from the original note were not included. [facility] CCU PROGRESS NOTE Patient Name: Chelsea Cole : 12/27/1989 Chelsea Cole is a 34 y.o. male with PMH of alcohol use, tobacco use, and cocaine use. Per family reports, patient was with friend smoking marijuana and drinking alcohol. Friend woke up to patient with vomit on shirt, nonresponsive and called EMS. Patient presented from [facility], reviewed information from paper chart: Upon EMS arrival, bystanders stated that he had a pulse, but when they checked he was pulseless. He was found to be in ventricular fibrillation so he was defibrillated at 120 J into asystole. They performed CPR for 12 minutes and 2 rounds of epinephrine were given prior to return of spontaneous circulation. They did note that he had a low blood pressure afterwards, as well as low blood sugar. They administered D10, and had intubated the patient. Normal CT head. Per EMS they gave 4 Narcan's initially on scene. Bedside echo on arrival with low normal LV function without focal WMAs. ICU consulted for vent management, concern for aspiration, possible sepsis and polysubstance use. Subjective: Interval History: Strep urine ag positive. PNA PCR positive for staph aureus (mec A negative), strep pneumo, H. Flu. CCM started cefepime and vancomycin. CCM started levophed and vasopressin for hypotension overnight. Additionally started bicarb drip. Potassium to 6.2, patient was given lokelma, insulin with D50. CK increased from 14,329 to 15,846. Ordered additional 1L fluid bolus. This AM patient seen resting in bed, intubated and sedated in no acute distress. Review of Systems: Review of Systems Unable to perform ROS: Intubated Inpatient Medications: Scheduled Meds:Acetaminophen, 650 mg, Per G Tube, q6h Or acetaminophen, 650 mg, Rectal, q6h cefepime, 2,000 mg, IntraVENous, q12h folic acid 1 mg in dextrose 5 % 50 mL IVPB, 1 mg, IntraVENous, Daily heparin, 5,000 Units, SubCUTAneous, 2 times per day Hydrocortisone Sod Suc (PF), 100 mg, IntraVENous, q8h mupirocin, 1 Application, Nasal, BID pantoprazole, 40 mg, Oral, Nightly Or pantoprazole (ProtoNix) 40 mg in sodium chloride (PF) 0.9 % 10 mL injection, 40 mg, IntraVENous, Nightly thiamine (Vitamin B1) 500 mg in sodium chloride 0.9 % 100 mL IVPB, 500 mg, IntraVENous, q8h Followed by [START ON 12/26/2024] thiamine (Vitamin B1) 250 mg in sodium chloride 0.9 % 100 mL IVPB, 250 mg, IntraVENous, q24h Followed by [START ON 12/31/2024] thiamine, 100 mg, Oral, Daily vancomycin, 1,250 mg, IntraVENous, q24h Continuous Infusions:fentaNYL, 25-200 mcg/hr, Last Rate: 200 mcg/hr (12/25/24 0842) norepinephrine, 0.01-3.3 mcg/kg/min, Last Rate: 0.2 mcg/kg/min (12/25/24 1219) propofol, 5-50 mcg/kg/min, Last Rate: 30 mcg/kg/min (12/25/24 0650) sodium bicarbonate 150 mEq in dextrose 5 % 1,000 mL infusion, 150 mL/hr, Last Rate: 150 mL/hr (12/25/24 0817) vasopressin in D5W, 0.01-0.03 Units/min, Last Rate: 0.03 Units/min (12/25/24 1219) PRN Meds used in the last 24hr: none Objective: Physical Examination: BP (!) 87/58 Pulse 75 Temp (!) 38.1 C (100.6 F) Resp (!) 0 Ht 5' 6" (1.676 m) Wt 153 lb (69.4 kg) SpO2 100% BMI 24.69 kg/m Intake/Output Summary (Last 24 hours) at 12/25/2024 1221 Last data filed at 12/25/2024 0800 Gross per 24 hour Intake 3771 ml Output 760 ml Net 3011 ml Physical Exam Constitutional: General: He is not in acute distress. Comments: Intubated and sedated HENT: Head: Normocephalic and atraumatic. Cardiovascular: Rate and Rhythm: Normal rate and regular rhythm. Heart sounds: No murmur heard. Pulmonary: Effort: Pulmonary effort is normal. Breath sounds: Normal breath sounds. Abdominal: General: Abdomen is flat. There is no distension. Palpations: Abdomen is soft. Tenderness: There is no guarding. Musculoskeletal: Cervical back: Neck supple. Right lower leg: No edema. Left lower leg: No edema. Skin: General: Skin is warm and dry. Pertinent Labs: BMP: Lab Results Component Value Date NA 137 12/25/2024 K 4.5 12/25/2024 CL 104 12/25/2024 CO2 22 12/25/2024 BUN 28 (H) 12/25/2024 CREATININE 2.04 (H) 12/25/2024 GLUCOSE 221 (H) 12/25/2024 CALCIUM 7.2 (L) 12/25/2024 MG 2.1 12/24/2024 PHOS 3.9 12/24/2024 CBC: Lab Results Component Value Date WBC 3.3 (L) 12/25/2024 HGB 12.4 12/25/2024 HCT 38.0 (L) 12/25/2024 MCV 86.2 12/25/2024 PLT 165 12/25/2024 Cardiac profile: CK Date Value Ref Range Status 12/25/2024 13,800 (H) 30 - 185 U/L Final 12/25/2024 15,846 (H) 30 - 185 U/L Final 12/24/2024 14,329 (H) 30 - 185 U/L Final Coagulation: Lab Results Component Value Date INR 1.2 (H) 12/24/2024 Lipid panel: Lab Results Component Value Date CHOL 166 12/24/2024 HDL 40 (L) 12/24/2024 TRIG 113 12/24/2024 Other: Lab Results Component Value Date TSH 1.89 12/24/2024 Chest Imaging: CXR: === 12/24/24 === XR CHEST 1 VIEW - Impression - 1. Endotracheal tube in satisfactory position. 2. New left subclavian line as described. The distal tip is in the SVC. 3. Bilateral infiltrates and effusions, right greater than left. 4. Prominence of the interstitium and central pulmonary vasculature consistent with moderate congestive heart failure/fluid overload. 5. The aeration of the lungs has improved. 6. No pneumothorax after line placement. Report Dictated on Electronically Signed By: Jesse Menendez MD Electronically Signed Date/Time: 12/25/2024 1:40 AM EDT Cardiac Studies: Telemetry findings reviewed: yes ECG: Encounter Date: 12/24/24 ECG 12 lead Result Value Heart Rate 92 QRSD Interval 85 QT Interval 328 QTC Interval 405 P [place] 64 QRS [place] 37 T Wave [place] 10 MI Interval 134 Impression Sinus rhythm Borderline T wave abnormalities Echo: No results found for this or any previous visit. Cath Report: No results found for this or any previous visit. Assessment/Plan HF NYHA Class [] I [] II [] III [] IV []Unable to assess [] N/A V-fib arrest Acute hypoxemic respiratory failure - troponins 1,053 to 1,633, suspect elevated 2/2 arrest rather than ACS. - bedside echo with low normal LV function without focal WMAs. Formal TTE pending. - Etiology for v fib arrest likely 2/2 substance use vs electrolyte abnormality vs sepsis. Unlikely 2/2 cardiac ischemia. - Patient currently hemodynamically stable. - EKG with NSR, peaked T waves likely 2/2 hyperkalemia - Ethanol <10. Ethyl glucuronide positive. UDS positive for benzo, methadone, fentanyl - TSH normal Plan: - follow TTE. If TTE unremarkable, will discuss with ICU for MICU to become primary with cardiology consult to follow given unlikely ACS etiology. Would recommend eventual ischemic workup if/when he recovers. - ventilator care per MICU, currently sedated with propofol and fentanyl - PT/OT - Consult dietary for TF management - CMP every 4 hours, daily CBC, mag, and phos Hyperkalemia -s/p insulin with D50, lokelma 5/4 -CMP every 4 hours, daily CBC, mag, and phos Septic Shock - Strep urine ag positive. PNA PCR positive for staph aureus (mec A negative), strep pneumo, H. Flu - procal 3.32 Plan: - Management per ICU team - currently on vancomycin and cefepime - blood cultures, respiratory cultures, urine cultures pending - levophed, vasopressin drips per ICU team - monitor daily CBC - TTM per MICU - Hydrocortisone started per ICU team Metabolic acidosis -bicarb drip per ICU -Trend with CMP q4hr, ABG q6h Transaminitis - Unknown etiology, likely 2/2 shock liver vs alcoholic hepatitis in the setting of alcohol use. - Maddrey's calculated at 15.9 - RUQ US with coarsened liver appearance suggesting cirrhosis. Decreased flow within splenic vein which may be technical and flow is noted on spectral doppler, could consider dedicated duplex liver US. - HIV and acute hepatitis panel normal Plan: - LFTs starting to downtrend. Will continue to monitor with q4 CMP and if LFTs begin to rise will plan to obtain dedicated duplex ultrasound of liver. ABRIL Rhabdomyolysis - ABRIL likely component of prerenal plus hypotension and rhabdo - Fena 0.2% - CK 14,329 > 15,846 > 13,800 - Patient given 2 L IV fluids overnight and additional 1 L this AM due to CK uptrending. Is currently on maintenance fluids in the form of bicarb drip 150mL/hr. -abdominal ultrasound with normal appearing kidneys, no hydronephrosis Plan: - Trend CK q6h, will consider additional fluid bolus if CK uptrends - Trend CMP every 4 hours Tobacco use Alcohol use History of drug use-cocaine - Ethanol <10. Ethyl glucuronide positive. UDS positive for benzo, methadone, fentanyl - continue high-dose thiamine and IV folic acid ordered - CIWA precautions - POCT every 6 hours - Goals of Care: Full Code - DVT Prophylaxis: HSQ q12h - GI Prophylaxis: Protonix daily - Diet: NPO, tube feeds when able - BMI Classification: Body mass index is 24.69 kg/m . - Disposition: Continue to monitor in CCU. Likely transfer to MICU later this afternoon. Cosigned by Bebo Jones MD at 12/25/2024 2:47 PM EDT [facility] Respiratory Care Department Progress Note Spontaneous Awakening Trial Wean Screen SpO2>/=88%: Yes (12/25/24412) FiO2</=50%: No (12/25/24412) PEEP </=8cmH2O: No (12/25/24412) HR <140 BPM: Yes (12/25/24412) RR </= 35 breaths/min: Yes (12/25/24412) MAP >/= 65mmHg: Yes (12/25/24412) Arterial pH >7.30: No (12/25/24412) Safety Screen Spontaneous Breathing Trial (SBT - RT) : FiO2 is greater than 50% (12/25/24412) Spontaneous Breathing Trial Vent Settings Vent Mode: Assist control (12/25/24399) Mandatory Type: VC+ (12/25/24399) FiO2 (%): 80 % (12/25/24399) Vitals MAP (mmHg): 64 (12/25/24227) Heart Rate: 91 (12/25/24399) Resp: 25 (12/25/24399) SpO2: 100 % (12/25/24399) Suctioning/Secretions ABG results Recent Labs 12/24/24203312/25/24 014 PHART 7.255* 7.264* [id number] 42.7 46.3* PO2ART 57.9* 57.6* [id number] 18.5* 20.5* [id number] Ventilator Ventilator Does this patient meet criteria for termination of mechanical ventilation No - Failed Wean Screen Name of physician notified via secure chat or in person : (NA if patient did not meet criteria) Comments: Thank you for involving Respiratory in the care of this patient, Images from the original note were not included. Pharmacy Managed Vancomycin Dosing Service Consult Note Consult Date: 12/24/24 Patient Name: Chelsea Cole Allergies: Patient has no allergy information on record. Age: 34 y.o. Sex: male Estimated body mass index is 27.14 kg/m as calculated from the following: Height as of this encounter: 1.6 m (5' 3"). Weight as of this encounter: 69.5 kg (153 lb 3.5 oz). DW: 69.5 kg Lab Results Component Value Date CREATININE 1.80 (H) 12/24/2024 CREATININE 2.14 (H) 12/24/2024 BUN 24 (H) 12/24/2024 BUN 23 (H) 12/24/2024 WBC 2.4 (L) 12/24/2024 Calculated CrCl: 55.8 mL/min (Cockcroft-Gault) Consulted By: Jodi Riggs DO Infectious Diagnosis: Sepsis of unknown etiology (AUC Goal 400-600 mg/L*hr) Random Vancomycin Level Due: 12/25 Antimicrobials: Patient recently received an antibiotic (last 12 hours) Date/Time Action Medication Dose Rate 12/24/242127 Given mupirocin (Bactroban) 2 % ointment 1 Application 1 Application 12/24/242104 New Bag vancomycin IVPB 1500 mg in 250 mL NS (premix) 1,500 mg 125 mL/hr Assessment/Plan: Doses, serum creatinine, and vancomycin levels interfaced automatically to Gu[employer] and data has been analyzed and interpreted. Start Vancomycin 1500 mg every 24 hours based on patient age, weight, renal function, and infectious diagnosis (21.6 mg/kg). Predicted AUC = 567 mg/L*hr (goal 400-600 mg/L*hr) PAUC = 87% (probability that AUC is >400 mg/L*hr) Pconc = 17% (probability that Ctrough is above 20 mcg/mL (toxicity)) Will assess level on 12/25 and adjust as appropriate. Trend serum creatinine. Orders placed. Thank you for this consult. Please secure text or call with questions. DATE: 12/24/24 TIME: 11:39 PM Chantell Carmichael PharmD Clinical Pharmacist Available via Secure Chat SEPSIS REASSESSMENT I re-examined the patient at the following date and time: 2300 Vital Signs: Most updated vital signs reassessed. Cardiac examination significant for: Regular rate and rhythm Pulmonary examination significant for: Coarse breath sounds bilaterally Capillary refill is: brisk Peripheral Pulse is: 1+ Skin is: Normal I have personally performed a lgxz-lj-hvey diagnostic evaluation on this patient on date of service 12/24/24. History, labs, imaging studies, and electronic medical record have been reviewed by me. This note documented by the [x]greenhouse manager []JORGE reflects my history, exam, and medical decision making. I have reviewed and agree with the care plan. Changes were made in the orders as necessary. ROS documentation was reviewed and negative unless otherwise stated in HPI. Additional pertinent interval history, ROS, and physical exam findings: 34yoM was found down. He was drinking/smoking yesterday evening. This morning, he was found unresponsive with vomit on his shirt. EMS was called. On arraival, the pt was noted to be in VF. ROSC was obtained after 10-15 minutes. On exam, the pt periodically is trying to sit up. No following commands. Assessment: Acute hypoxic respiratory failure VF arrest Aspiration pneumonia Septic shock ABRIL NAGMA/hyperchloremia Rhabdomyolysis Plan: Decrease Vt to 6ml/kg. Increase PEEP. Aspiration coverage. Can likely de-escalate to unasyn pending respiratory culture and if blood cultures stay negative IVF resuscitation given rhabdo. Getting 2L LR. Start bicarb gtt. Thiamine/folate Could consider stress steroids given sepsis/pressors Fever avoidance. Given current neurological behaviors, can defer cEEG for now. Oumarx dishay Family updated at bedside Critical Care Time: 45 minutes Total critical care time caring for this patient with life threatening, unstable organ failure, including direct patient contact, management of life support systems, review of data including imaging and labs, discussions with other team members and physicians, excluding procedures. documented in this encounter EndoDex 01-09-2025 Note EndoDex Sys tem [facility] 01-09-2025 Telephone encounter Note Pt appeared on Nuance search for Lung nodules after CTA chest 01/06/25; revealed the following: IMPRESSION: Limited examination due to motion artifact. Right middle lobe and left upper lobe pulmonary emboli. RV/LV ratio is 1.2, which is mildly abnormal. 3.7 cm cavitary area within the posterior aspect of the left lower lobe. Dense consolidation within the superior segment of the right lower lobe also demonstrates multiple smaller cystic or cavitary areas. Coarse reticular and groundglass infiltrates within the lungs bilaterally in a predominantly central distribution, nonspecific in appearance. Referral: pulm; cards OSF imaging: na Pt is documented as: former smoker Additional Risk Factors: cardiac arrest, ARDS, + pathogens, MSSA, strep PNA, H Flu, Pulm consulted for LLL cavitary mass. Planning extended course of Atb and Ct chest in 4-6 weeks. Lung Navigators to follow. Respiratory consult for lung nodule also received. Same as above. [facility] 01-08-2025 Consult note Associated Order (s): IP CONSULT TO PULMONOLOGY Chief Complaint: cavitary lung lesion(s) History of Present Illness: HPI Chart extensively reviewed including primary service, cardiology, and ICU service notes. Patient had cardiac arrest. Developed ARDS. Likely aspiration pneumonia. Polymicrobial pathogens identified including MSSA, strep PNA, H. Flu. Has been extubated. Coronary CT demonstrated cavitary mass like lesion in LLL. Subsequently we ordered a dedicated CTA chest. I personally reviewed/interpreted these images- demonstrates segmental RML and CHARMAINE PE. Extensive bilateral reticular and ground glass infiltrates. 3.7 cm posterior LLL cavitary mass like lesion and smaller RLL cavitary lesion. He remains on 4L supplemental oxygen and is SOB with movement. Procal is 0.19. Past Medical History: Medical History[1] Social History: Social History[2] Family History: Family History[3] ROS: Review of Systems Respiratory: Positive for cough and shortness of breath. All other systems reviewed and are negative. Medications: Current Medications[4] Allergies: Allergies[5] Physical Exam: BP Temp Pulse Resp SpO2 BP 117/82 (BP Location: Left arm, Patient Position: Lying) Pulse 99 Temp 37.1 C (98.7 F) (Temporal) Resp 18 Ht 5' 6" (1.676 m) Wt 136 lb 1.6 oz (61.7 kg) SpO2 93% BMI 21.97 kg/m Physical Exam Constitutional: General: He is not in acute distress. Appearance: He is ill-appearing. He is not toxic-appearing. HENT: Head: Normocephalic and atraumatic. Nose: Nose normal. No congestion or rhinorrhea. Mouth/Throat: Mouth: Mucous membranes are moist. Pharynx: Oropharynx is clear. No oropharyngeal exudate. Eyes: General: No scleral icterus. Conjunctiva/sclera: Conjunctivae normal. Cardiovascular: Rate and Rhythm: Normal rate and regular rhythm. Heart sounds: No murmur heard. No friction rub. No gallop. Pulmonary: Effort: No respiratory distress. Breath sounds: No stridor. Rhonchi present. No wheezing or rales. Comments: Labored with movement Musculoskeletal: General: No swelling, tenderness, deformity or signs of injury. Skin: General: Skin is warm and dry. Coloration: Skin is not pale. Findings: No erythema or rash. Neurological: General: No focal deficit present. Mental Status: He is alert and oriented to person, place, and time. Psychiatric: Mood and Affect: Mood normal. Behavior: Behavior normal. Thought Content: Thought content normal. Assessment and Plan: 1) Aspiration pneumonia, polymicrobial pneumonia with cavitary lung lesions likely representing focal lung abscesses. Strep/Staph/H.Flu positive. Recommend prolonged antibiotic course- Unasyn -->augmentin for discharge- minimum 3 additional weeks. Advised on use of probiotic. Will need repeat CT chest in 4-6 weeks and follow up with pulmonary prior to completion of antibiotic course- ideally should be seen in fellow clinic. Consult lung nodule navigator to assist with follow up imaging. 2) s/p cardiac arrest 3) Pulmonary embolism- on lovenox. Transition to Eliquis for discharge? Question whether this may have been initial etiology for arrest vs provoked in setting of acute illness. This consideration will determine length of treatment. Minimum 3 months treatment, will be ok to discuss as outpatient. 4) ARDS, acute hypoxic respiratory- anticipate will need supplemental oxygen at discharge. 5) Alcohol abuse- addiction medicine was consulted. ?contribution to aspiration? [1] No past medical history on file. [2] Social History Socioeconomic History Marital status: Single [3] No family history on file. [4] Current Facility-Administered Medications Medication Dose Route Frequency Provider Last Rate Last Admin [START ON 01/09/2025] amoxicillin-clavulanate (Augmentin) 875-125 MG per tablet 1 tablet 875 mg Oral 2 times per day Luan Wilson MD ampicillin-sulbactam (Unasyn) 3,000 mg in sodium chloride 0.9 % 100 mL IVPB (Add-[place]) 3,000 mg IntraVENous q6h Luan Wilson MD 200 mL/hr at 01/08/25 1404 3,000 mg at 01/08/25 1404 dextrose 5 % infusion 100 mL/hr IntraVENous PRN Maverick Miramontes MD dextrose 50 % solution 12.5 g 12.5 g IntraVENous PRN Maverick Miramontes MD enoxaparin (Lovenox) syringe 60 mg 1 mg/kg SubCUTAneous q12h Luan Wilson MD 60 mg at 01/08/25 0558 folic acid (Folvite) tablet 1 mg 1 mg Oral Daily Maverick Miramontes MD 1 mg at 01/08/25 0829 glucagon (human recombinant) injection 1 mg 1 mg IntraMUSCular PRN Maverick Miramontes MD glucose oral gel 15 g 15 g Oral PRN Maverick Miramontes MD haloperidol lactate (Haldol) injection 2 mg 2 mg IntraMUSCular q2h PRN Maverick Miramontes MD hydrALAZINE (Apresoline) injection 20 mg 20 mg IntraVENous q4h PRN Maverick Miramontes MD 20 mg at 12/30/24 1253 ipratropium-albuterol (Duo-Neb) 0.5-2.5 mg/3 mL nebulizer solution 3 mL 3 mL Nebulization PRN Maverick Miramontes MD 3 mL at 12/28/242036 labetalol (Normodyne,Trandate) injection 10 mg 10 mg IntraVENous q4h PRN Maverick Miramontes MD Lidocaine 4 % patch 1 patch 1 patch TransDERmal Daily Maverick Miramontes MD 1 patch at 01/02/25 0803 Lidocaine 4 % patch 1 patch 1 patch TransDERmal Daily Gallito Collado MD 1 patch at 01/07/25 0907 metoprolol tartrate (Lopressor) injection 5 mg 5 mg IntraVENous q5 min PRN Fabrizio Winkler MD 5 mg at 01/06/25 1111 naloxone (Narcan) injection 0.4 mg 0.4 mg IntraVENous q5 min PRN Maverick Miramontes MD ondansetron ODT (Zofran-ODT) disintegrating tablet 4 mg 4 mg Oral q8h PRN Maverick Miramontes MD Or ondansetron (Zofran) injection 4 mg 4 mg IntraVENous q6h PRN Maverick Miramontes MD oxyCODONE (Roxicodone) immediate release tablet 2.5 mg 2.5 mg Oral q4h PRN Luan Wilson MD Or oxyCODONE (Roxicodone) immediate release tablet 5 mg 5 mg Oral q4h PRN Luan Wilson MD 5 mg at 01/05/252055 pantoprazole (ProtoNix) EC tablet 40 mg 40 mg Oral Nightly Maverick Miramontes MD 40 mg at 01/07/252113 Or pantoprazole (ProtoNix) 40 mg in sodium chloride (PF) 0.9 % 10 mL injection 40 mg IntraVENous Nightly Maverick Miramontes MD 40 mg at 01/02/252027 polyethylene glycol (PEG) 3350 (Miralax) packet 17 g 17 g Oral Daily PRN Maverick Miramontes MD QUEtiapine (SEROquel) tablet 100 mg 100 mg Oral Nightly Maverick Miramontes MD 100 mg at 01/07/252113 QUEtiapine (SEROquel) tablet 50 mg 50 mg Oral q AM Maverick Miramontes MD simethicone (Mylicon) chewable tablet 80 mg 80 mg Oral 4x daily PRN Maverick Miramontes MD 80 mg at 01/04/25 235 sodium chloride 0.9 % infusion 5-250 mL/hr IntraVENous PRN Maverick Miramontes MD sodium chloride 3 % hypertonic nebulizer solution 4 mL 4 mL Nebulization BID PRN Marquez Melo MD thiamine (Vitamin B1) tablet 100 mg 100 mg Oral Daily Maverick Miramontes MD 100 mg at 01/08/25 0558 [5] Not on File Associated Order(s): IP CONSULT TO ADDICTION MEDICINE ADDICTION TEAM CONSULT JAN 06 2025Thursday ADMIT: December 24, 2024 following Cardiac Arrest CONSULT: "presented for cardiac arrest, Abd ultrasound with coarsened liver concerning for possible cirrhosis. Pt srinks 8 beers daily. No concern for activ WD; please provide pharm/social resources for cessation" IDENTIFYING INFO Not Seen Previously by our team. PMH: No significant acute/chronic issues Current anormal LFtS: AST 203 ALT 358 No elevation in MCVs; [place] Has been in hospital 12 days; transfer from [place] having suffered ME Per family, had been drinking alcohol/smoking THC. When I visited, lying awake in 5W bed; Alert, coherent, lucid; Clear Mentation. Euthymic mood; expressive affect; Recepitve to talking with me but appears to minimize consumption compared to family report on admission. 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 Denies problems: Denies Seizures, W/D tremors, Delerium, DUIs, legal issues Denies Cravings; "I've been in here for 2 weeks and never thought about it" Uncertain re: length of abstinence. Denies use of cocaine, methamphetamine, opiates; Admits to "occasional" marijuana use. NO treatments; NO AA Meeting attendance Says he's motivated to STOP drinking as he now knows it will worsen liver/heart issues ROS: all reviewed; he endorses fatigue re: length of time in hospital Cough; SOB Social Determinants negatively affecting health: Tobacco/alcohol/THC use, otherwise no issues Exam MS: clear cognitions;, fully oriented, coherent, lucid Alert, Euthymic mood; expressive affect. Appearing as stated age; Pleasant young man. Good hygiene; Maintain eye contact, Speech even Neuro: NO Tremors; NO fidgeting/restlessness; No twitching No hyper reflexia Skin: No diaphoresis or clamminess; NO other abnormal issues evident. Respirs: + deep/congested cough; Suppl oxy at 4L n/c Cardiac: NO tachycardia; VS within normal range; ON telemetry Abdomen: No distention seen Muscles/skelatal: No overt deformities/edema noted Cognitions: Clear mentation; coherent/lucid: Judgement/Insight: Fair Psychiatric: NO AGITATION; NO evidence of psychiatric impairment/suicidality Diagnosis: Alcohol Use Disorder Mr Cole shows insight into necessity to refrain from consuming alcoholic beverages; But seems to think cessation will be easier than not. Based on reports from family, documented on admit notes, seems to minimize his use; I discussed toxic nature of ethanol on organs; Discussed benefit of treatment & AA Meeting Attendance. Provided him with information on Acamprosate PO. OVERALL, he seems receptive to AA Meetings, but not to medication: "I think I'll be allright" Doubt he'll be able to refrain on own w/out help. Plan As a result of the above findings & factors: Withdrawal: no symptoms evident Addiction Provided him with AA Meeting Schedule Info on Acamprosate Info on [facility] Will place on Discharge f/ups RECOMMEND: primary/cardiac teams stress necessity to refrain from alcohol, cigarettes and ALL mood altering substances. Signing off; wishing him well Angeli Monge APRN [facility] Addiction Team Associated Order(s): IP CONSULT TO DIETITIAN Nutrition Assessment Type and Reason for Visit: Reassess, Consult (TF ordering and management) Nutrition Recommendations/Plan: Propofol at 20.9 ml/hr provides 552 lipid kcals per day If pt is hemodynamically stable and EN is indicated, recommend to provide Vital HP at goal rate of 50 ml/hr + 552 propofol kcals, provides a total of 1752 kcal, 105 g protein, and 1003 ml free water (25 kcal and 1.5 g protein per kg IBW) -modified TF as recommended per MNT protocol RD will monitor route, intake, and tolerance of nutrition, overall nutrition status, and will follow weekly Nutrition Assessment: Pt remains intubated with propofol at 20.9 ml/hr. New consult placed for TF ordering and management. Nutrition assessment was completed yesterday. Please see yesterday's consult note for details. Tala Campos RD, LD Contact: *[phone] or via Gate2Play chat Associated Order(s): IP CONSULT TO PALLIATIVE CARE Images from the original note were not included. Palliative Care Initial Consult Chief Complaint: Chelsea Cole is a 34 y.o. male with chief complaint of cardiac arrest. Palliative Care is actively following. 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 Central pulmonary vasculature consistent with moderate congestive heart failure/fluid overload. Cardiac Arrest Continuous EEG in place Targeted temperature management Sedation to be held today 12/27 per primary team Cardiology following, cardiology recc ischemic work-up when able. No Brugada sign visible on ECG TTE 12/25/24: EF - 45% Acute Kidney Injury Creatinine 1.20, improved from 2.14 on admission Low urine output Rhabdomyolysis Transaminitis - improving Now trending daily CK's; improving. Currently 5,171 down from +14,000 on admission AST 645 ---> 212, ALT 499 --->181 since admission Tobacco Abuse Alcohol Use ? Polysubstance Use Drug screen benzo, methadone, fentanyl positive on 12/25 (benzodiazepine and fentanyl potentially administered by squad or hospital, but this does not explain methadone) Ethanol < 10 On folic acid, thiamine Monitor for withdrawal Palliative Care Encounter -Code Status: Full Code - Ongoing counseling of patient and family regarding diagnoses of Cardiac Arrest, Determining prognosis in serious illness of Cardiac Arrest Will continue to follow Discharge planning: Not ready for discharge due to ongoing medical work-up/critical illness Patient meets criteria for general inpatient hospice care: No Palliative Care IDT members involved: Pastoral Care Discussed the plan of care with the other interdisciplinary team (IDT) members of the Palliative Care and Hospice teams and Family and Primary Attending. 60 minutes spent in initial counseling and coordination of care including exam of patient, discussion with critical care team, review of medical record and diagnostics, obtaining collateral history and documentation Subjective: Subjective/Events Chelsea Cole is a 34 y.o. male with a PMH of alcohol use, tobacco use, and cocaine use who presented to [facility] on 12/24/24 from [facility] with the complaint of cardiac arrest. Patient was at home sleeping when family found him unresponsive with emesis covering his shirt. Reportedly patient was drinking alcohol and smoking marijuana with a friend at his apartment the previous night. Patient was found to be in ventricular fibrillation by EMS; defibrillation, 2 rounds of epinephrine, and 10-15 minutes of CPR were delivered before achieving ROSC. Family reports that this patient had complained of chest pain and palpitations the day prior to admission. Patient has no cardiac history and takes no prescribed medications. 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 Is a former tobacco smoker and now occasionally vapes. Drinks 2-3 tall boys per day. Denies IVDU, endorses occasional cocaine use. Patient was admitted to ICU for medical management. Patient's hospital course has included initiation of targeted temperature management, proning protocol with chemical paralysis and sedation, vasopressor requirements, continuous EEG, and mechanical ventilation. CXR reveals bilateral pneumonia. Goals of care discussions will be ongoing pending clinical workup. Upon assessment today, patient is resting in bed with his girlfriend and aunt at the bedside. Patient is not alert or interactive during this examination. Patient recently came off of chemical paralytic this morning at 0600 and is still under sedative medications during this exam. Last documented BM 12/27/2024. Goals of Care Discussion: Introduced self and role of palliative care. Provided medical updates and answered all questions from family members at the bedside. Goals of care are to continue current medical management. Unable to obtain history or ROS from intubated/sedated patient S pneumo Ag + Pneumonia PCR + s pneumo, MSSA, H influenzae Pain Assessment Unable due to Intubated/sedated and Unresponsive Palliative Care Assessments: Goals of care: Continue Current Management, Cure, utilize all available medical therapies necessary, Live Longer, extend life as much as possible, and Improve or Maintain Function/Quality of Life Advanced Directives: No Known Advance Directive Functional Assessment: PPS 10% bedbound; can't do any work/extensive disease; total care; mouth care only; drowsy or coma Prognosis: depends upon goals of care and uncertain at this time Spiritual Assessment: No spiritual distress identified and community-based clergy invovled Bereavement and Grief: Grief Issues Not Identified PDMP/OARRS Reviewed: Yes- no Rx's filled. Social history: Marital status: single Children: 4 children, all under 18 years old. 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 [place] status: No Jain eliud: Other ROS: See palliative care ROS/ESAS below; Detail ROS unable to be obtained due to patient's mental status Murphy Symptom Assessment Score Murphy Score Pain Score (if non-verbal, add .FLACC below) 0 Tiredness Score 5 Nausea Score 0 Depression Score 0 Anxiety Score 0 Drowsiness Score 10 Anorexia Score (0= eating well, 10= not eating) 10 Wellbeing Score (10= worst sense of well-being) 0 Constipation 0 Dyspnea Score (0= no shortness of breath) 10 FLACC Scale (For Pain Assessment of the Non-Verbal Patient) Face: 0- no particular expression Legs: 0- normal position or relaxed Activity: 0-lying quietly, moves easily Cry: 0-no cry Consolability:0-content, relaxed Total Score: 0 Family Meeting: Participants: none held Family meeting was held to discuss:N/A No past medical history on file. No past surgical history on file. No family history on file. Unable to obtain family history due to patient unresponsive Not on File Objective: BP 100/69 (BP Location: Right arm, Patient Position: Lying) Pulse 78 Temp (!) 35.6 C (96.1 F) (Temporal) Resp 16 Ht 5' 6" (1.676 m) Wt 182 lb 1.6 oz (82.6 kg) SpO2 100% BMI 29.39 kg/m Physical Exam Constitutional: General: He is not in acute distress. Appearance: He is ill-appearing. HENT: Head: Normocephalic and atraumatic. Eyes: General: Right eye: No discharge. Left eye: No discharge. Cardiovascular: Rate and Rhythm: Normal rate and regular rhythm. Pulses: Normal pulses. Heart sounds: Normal heart sounds. Pulmonary: Effort: Pulmonary effort is normal. No respiratory distress. Breath sounds: Rhonchi present. Abdominal: General: Abdomen is flat. Bowel sounds are normal. There is no distension. Palpations: Abdomen is soft. Musculoskeletal: General: Swelling present. Skin: General: Skin is warm and dry. Neurological: Comments: Intubated and sedated Psychiatric: Comments: Not interactive. Attending Exam: Appearance: no acute distress Eyes: closed ENT: intubated Neck: supple Respiratory: breathing unlabored, lungs with loud rhonchi anteriorly BL Cardiovascular: heart RRR without m/g/r, pedal pulses palpable Gastrointestinal: abdomen soft, non-tender, non-distended, normoactive bowel sounds. Musculoskeletal: normal digits and nails without cyanosis or clubbing, normal muscle strength and tone, no edema of BL LE Skin: warm and dry, no rash or wounds Neurologic: sedated Psychiatric: sedated Medication information: 24-hour PRN meds received: midazolam 2 mg IV x2 Results/Verification of Data Review Objective data reviewed (must include dates reviewed for labs, imaging reports and other specialty notes): CXR 12/24 & 12/25; CMP, CBC, & CK 12/25-12/27; Medication History, Chart Review, H&P 12/24, Progress notes 12/24-12/27, TTE 12/24/24 Data in Support of Terminal Illness: Is patient hospice appropriate? TBD Transition Note Initiated: yes EJ Jimenez CNP Associated Order(s): IP CONSULT TO NEUROLOGY INITIAL CONSULT NOTE. NEUROCRITICAL CARE Patient Name: Chelsea Cole Patient : 1990 Acct: [id number] Date of Admission: 12/24/2024 Room/Bed: T1-115/T1-115 A PCP: Breanna Roman History of Present Ilness: 34 y.o. is unknown handed male with the chief Complaint of:cardiac arrest 34yo M we are consulted for post arrest encephalopathy/concern for anoxic brain injury. This patient arrived from [facility] on 12/26/24 after being found by his girlfriend covered in vomit while sitting on the couch. According to the girlfriend he was not waking up when she called 911. Upon EMS arrival they found him to be in VFIB requiring shocks and ACLS was initiated lasting 12 minutes in duration. Upon more review the girlfriend he complained of palpitations and chest pain earlier in the day but in the evening they were drinking ETOH and smoking marijuana. 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 Was found to meet sepsis criteria. He is currently on paralytics, fentanyl, propofol, and versed. Afebrile. Upon seeing him this morning he was just stopped on paralytics so exam skewed for that. Past Medical History: ETOH use Vape use Marijuana use Cocaine use Past Surgical History: @PS@ Home Medications: Prior to Admission medications Not on File Current Hospital Medications: Current Facility-Administered Medications: Acetaminophen (Tylenol) 650 MG/20.3ML solution 650 mg, 650 mg, Per G Tube, q6h, 650 mg at 12/26/24 2115 OR acetaminophen (Tylenol) suppository 650 mg, 650 mg, Rectal, q6h, Radha Myers DO cisatracurium (PF) (Nimbex) 200 mg in sodium chloride 0.9 % 100 mL infusion, 0.5-10 mcg/kg/min, IntraVENous, Continuous, Stefan Street MD, Last Rate: 2.08 mL/hr at 12/27/24 0417, 1 mcg/kg/min at 12/27/24 0417 dextrose 5 % infusion, 100 mL/hr, IntraVENous, PRN, Radha Myers DO dextrose 50 % solution 12.5 g, 12.5 g, IntraVENous, PRN, Radha Myers DO fentaNYL (Sublimaze) 1000 mcg in sodium chloride 0.9 % 100 mL 10 mcg/mL infusion, 25-200 mcg/hr, IntraVENous, Continuous, Stefan Street MD, Last Rate: 20 mL/hr at 12/27/24512, 200 mcg/hr at 12/27/24512 folic acid 1 mg in dextrose 5 % 50 mL IVPB, 1 mg, IntraVENous, Daily, Jodi Riggs DO, Stopped at 12/26/24900 glucagon (human recombinant) injection 1 mg, 1 mg, IntraMUSCular, PRN, Radha Myers DO glucose oral gel 15 g, 15 g, Oral, PRN, Radha Myers DO heparin injection 5,000 Units, 5,000 Units, SubCUTAneous, 2 times per day, Devi Hutson MD, 5,000 Units at 12/26/24 211 Hydrocortisone Sod Suc (PF) (Solu-CORTEF) injection 100 mg, 100 mg, IntraVENous, q8h, Rex Ellis MD, 100 mg at 12/27/24 0342 insulin NPH (Isophane) (HumuLIN N,NovoLIN N) injection 5 Units, 5 Units, SubCUTAneous, q12h, Rex Ellis MD, 5 Units at 12/27/24 0341 insulin regular (HumuLIN R,NovoLIN R) injection 0-12 Units, 0-12 Units, SubCUTAneous, q6h, Rex Ellis MD, 2 Units at 12/27/24 0341 LORazepam (Ativan) tablet 1 mg, 1 mg, Oral, q1h PRN OR LORazepam (Ativan) injection 1 mg, 1 mg, IntraVENous, q1h PRN OR LORazepam (Ativan) tablet 2 mg, 2 mg, Oral, q1h PRN OR LORazepam (Ativan) injection 2 mg, 2 mg, IntraVENous, q1h PRN, Jodi Riggs DO midazolam (Versed) 100 MG/100 ML infusion, 1-10 mg/hr, IntraVENous, Continuous, Rex Ellis MD, Last Rate: 2 mL/hr at 12/26/241946, 2 mg/hr at 12/26/241946 midazolam (Versed) injection 2 mg, 2 mg, IntraVENous, q1h PRN, Stefan Street MD, 2 mg at 12/26/24252 mupirocin (Bactroban) 2 % ointment 1 Application, 1 Application, Nasal, BID, Jodi Riggs DO, 1 Application at 12/26/242114 naloxone (Narcan) injection 0.4 mg, 0.4 mg, IntraVENous, q5 min PRN, Jodi Riggs DO norepinephrine (Levophed) 16 mg in 0.9% sodium chloride 250 mL infusion (weight based) (premix), 0.01-3.3 mcg/kg/min, IntraVENous, Continuous, Rex Ellis MD, Stopped at 12/26/242339 ondansetron ODT (Zofran-ODT) disintegrating tablet 4 mg, 4 mg, Oral, q8h PRN OR ondansetron (Zofran) injection 4 mg, 4 mg, IntraVENous, q6h PRN, Jodi Riggs DO pantoprazole (ProtoNix) EC tablet 40 mg, 40 mg, Oral, Nightly OR pantoprazole (ProtoNix) 40 mg in sodium chloride (PF) 0.9 % 10 mL injection, 40 mg, IntraVENous, Nightly, Radha Myers DO, 40 mg at 12/26/242114 piperacillin-tazobactam (Zosyn) 4,500 mg in sodium chloride 0.9 % 100 mL IVPB Mini-Bag Plus, 4,500 mg, IntraVENous, q6h, Maverick Miramontes MD, Stopped at 12/27/24 0642 potassium chloride 40 mEq in NS 500 mL IVPB (premix), 40 mEq, IntraVENous, Once, Travis Anaya MD, Last Rate: 125 mL/hr at 12/27/24 0548, 40 mEq at 12/27/24 0548 propofol (Diprivan) infusion, 5-50 mcg/kg/min, IntraVENous, Continuous, Stefan Street MD, Last Rate: 20.9 mL/hr at 12/27/24329, 50 mcg/kg/min at 12/27/24329 sodium chloride 0.9 % infusion, 5-250 mL/hr, IntraVENous, PRN, Jodi Riggs DO [COMPLETED] thiamine (Vitamin B1) 500 mg in sodium chloride 0.9 % 100 mL IVPB, 500 mg, IntraVENous, q8h, Stopped at 12/26/24 1445 FOLLOWED BY thiamine (Vitamin B1) 250 mg in sodium chloride 0.9 % 100 mL IVPB, 250 mg, IntraVENous, q24h, Stopped at 12/26/245 FOLLOWED BY [START ON 12/31/2024] thiamine (Vitamin B1) tablet 100 mg, 100 mg, Oral, Daily, Jodi Riggs DO vasopressin (Vasostrict) 20 units in dextrose 5% 100 mL infusion, 0.01-0.03 Units/min, IntraVENous, Continuous, Rex Ellis MD, Last Rate: 6 mL/hr at 12/27/24157, 0.02 Units/min at 12/27/24157 Continuous Infusions: cisatracurium (PF) (Nimbex) 200 mg in sodium chloride 0.9 % 100 mL infusion, 0.5-10 mcg/kg/min, Last Rate: 1 mcg/kg/min (12/27/24416) fentaNYL, 25-200 mcg/hr, Last Rate: 200 mcg/hr (12/27/24512) midazolam, 1-10 mg/hr, Last Rate: 2 mg/hr (12/26/241946) norepinephrine, 0.01-3.3 mcg/kg/min, Last Rate: Stopped (12/26/242339) propofol, 5-50 mcg/kg/min, Last Rate: 50 mcg/kg/min (12/27/24329) vasopressin in D5W, 0.01-0.03 Units/min, Last Rate: 0.02 Units/min (12/27/24157) Allergies: Patient has no allergy information on record. Social History: TOBACCO: has no history on file for tobacco use. ETOH: has no history on file for alcohol use. RECREATIONAL DRUG USE: Social History Substance and Sexual Activity Drug Use Not on file [facility] Review of Systems Unable to perform ROS: Acuity of condition Physical Examination: Patient Vitals for the past 8 hrs: BP Temp Temp src Pulse Resp SpO2 Weight 12/27/2430 -- -- -- 67 16 98 % -- 12/27/24 0615 -- -- -- 69 16 97 % -- 12/27/24 0600 -- -- -- 70 16 97 % 82.6 kg (182 lb 1.6 oz) 12/27/24 0545 -- -- -- 64 16 100 % -- 12/27/24 0530 -- -- -- 61 14 100 % -- 12/27/24 0515 -- -- -- 61 16 100 % -- 12/27/24 0500 -- -- -- 62 16 100 % -- 12/27/24 0445 -- -- -- 63 16 100 % -- 12/27/24 0430 -- -- -- 61 16 100 % -- 12/27/24 0415 -- -- -- 61 16 100 % -- 12/27/24 0400 -- -- -- 61 17 100 % -- 12/27/24 0345 -- -- -- 63 18 100 % -- 12/27/24 0330 -- -- -- 63 18 100 % -- 12/27/24 0315 -- -- -- 61 18 100 % -- 12/27/24 0304 -- -- -- 62 18 100 % -- 12/27/24 0300 -- -- -- 62 16 100 % -- 12/27/24 0245 -- -- -- 65 18 100 % -- 12/27/24 0230 -- -- -- 64 18 100 % -- 12/27/24 0215 -- -- -- 66 -- 99 % -- 12/27/24 0200 -- -- -- 62 14 98 % -- 12/27/24 0145 -- -- -- 62 14 99 % -- 12/27/24 0130 -- -- -- 61 18 99 % -- 12/27/24 0115 -- -- -- 63 18 99 % -- 12/27/24 0100 -- -- -- 64 14 99 % -- 12/27/24 0045 -- -- -- 64 12 99 % -- 12/27/24 0030 -- -- -- 63 -- 99 % -- 12/27/24 0015 -- -- -- 64 -- 99 % -- 12/27/24 0000 101/68 36 C (96.8 F) Esophageal 64 14 99 % -- 12/26/24 2345 -- -- -- 64 13 98 % -- 12/26/24 2330 -- -- -- 64 16 98 % -- 12/26/24 2315 -- -- -- 67 16 98 % -- 12/26/24 2314 -- -- -- 66 18 97 % -- I/O last 3 completed shifts: In: 7738 (93.7 mL/kg) [I.V.:7445 (90.1 mL/kg); NG/GT:293] Out: 2068 (25 mL/kg) [Urine:1568 (0.5 mL/kg/hr); Emesis/NG output:500] Weight: 82.6 kg General Physical Examination: General: young black male HEENT:Normocephalic, atraumaticl orbital edema CV: S1+S2, RRR, no MRG. Pulm: rhoncorous bilateral Abdomen: Soft NT/ND. BS + Skin: Intact without ulcers, breakdowns or discoloration Extremities: normal with no edema or cyanosis Orthopedic limitation; N/A Pulses: Intact peripherally Carotid auscultation :No bruits Neurological Examination: Higher Functions: Mental Status Exam: Level of Alertness:Sedated Orientation: intubated, can't talk Memory: intubated, can't talk Fund of Knowledge: intubated, can't talk Language: intubated, can'ttalk Dysarthria Intubated Cranial Nerves: -II Visual acuity: abnormal, limited due to patient unable to perform exam -II Visual oshea: poor reliability due to patient level ofconsciousness or structural limitation -III Pupils (~ 2 mm OD, 2 mm OU) equal, round, reactive to light -III-IV- Extraocular Movements: Not tracking -Nystagmus not tracking -Saccades and pursuits not tracking -V Facial sensation: abnormal Corneal's Intact bilateral -VII Facial strength: abnormal -VIII Hearing: abnormal -IX-X- Gag reflex Intubated -X Palate:abnormal -XI Shoulder shrug: abnormal -XII Tongue movement: intubated Funduscopic Exam: normal, no edema or exudates both eyes Motor Examination: Tone after evaluation of 4 limbs, the following findings applied: decreased all extremities -Bulk: normal -Muscle Stretchafter evaluation of all limbs, and axial musculature the following findings applied: Drift: patient is unable to move limbs due to sedation or acute medical circumstances -Reflexes: after evaluation of 4 limbs, the following findings applied ; normal all limbs -Plantar responce: Equivocal Sensory patient unable to assist with exam due toaphasia,level of consciousness, cognition or poor participation, Coordination: Arms patient unable to perform test due to sedation, paralysis or limb orthopedic circumstances Legs patient unable to perform testdue to sedation, paralysis or limb orthopedic circumstances Tremors patient unable to perform test due to sedation, paralysis or limb orthopedic circumstances Gait abnormal, patient unable to walk due to acute circumstances / bedrest / safety concerns Results Labs: Last 24hrs Recent Results (from the past 24 hours) Comprehensive metabolic panel Collection Time: 12/26/24 7:53 AM Result Value Ref Range SODIUM 134 (L) 136 - 145 mmol/L POTASSIUM 3.9 3.5 - 5.1 mmol/L CHLORIDE 96 (L) 98 - 107 mmol/L CARBON DIOXIDE 25 22 - 29 mmol/L ANION GAP 13 3 - 13 mmol/L UREA NITROGEN 26 (H) 8 - 21 mg/dL CREATININE 1.49 (H) 0.72 - 1.25 mg/dL GLUCOSE 223 (H) 74 - 100 mg/dL CALCIUM 7.8 (L) 8.4 - 10.2 mg/dL AST (SGOT) 273 (H) <34 U/L ALT 211 (H) <40 U/L ALKALINE PHOSPHATASE 25 (L) 40 - 150 U/L ALBUMIN 2.3 (L) 3.5 - 5.0 g/dL BILIRUBIN, TOTAL 0.4 <1.2 mg/dL TOTAL PROTEIN 4.9 (L) 6.4 - 8.3 g/dL eGFR 62.4 >60.0 mL/min/1.73m*2 POCT glucose meter Collection Time: 12/26/24 8:48 AM Result Value Ref Range Glucose 196 (H) 70 - 100 mg/dL ECG 12 lead Collection Time: 12/26/24 10:10 AM Result Value Ref Range Heart Rate 72 bpm QRSD Interval 106 ms QT Interval 433 ms QTC Interval 474 ms P [place] 88 degrees QRS [place] 53 degrees T Wave [place] 69 degrees [place] Interval 151 ms CK Collection Time: 12/26/24 12:03 PM Result Value Ref Range CK 7,535 (H) 30 - 185 U/L Blood Gas, Arterial Collection Time: 12/26/24 12:03 PM Result Value Ref Range pH, Arterial 7.497 (H) 7.350 - 7.450 pCO2, Arterial 38.7 >35.0 - <45.0 mm Hg pO2, Arterial 137.8 (H) 80.0 - 100.0 mm Hg HCO3, Arterial 29.3 (H) 21.0 - 25.0 mmol/L O2 Sat, Arterial 97.8 95.0 - 100.0 % Base Excess, Arterial 5.7 (H) -3.0 - 3.0 mmol/L CO2 Total 30.5 (H) 23.0 - 27.0 mmol/L Hgb, blood gas 10.2 Screen only g/dl Source Of Oxygen Ventilator Amount Of Oxygen 40% 12 peep Comprehensive metabolic panel Collection Time: 12/26/24 12:03 PM Result Value Ref Range SODIUM 133 (L) 136 - 145 mmol/L POTASSIUM 3.7 3.5 - 5.1 mmol/L CHLORIDE 97 (L) 98 - 107 mmol/L CARBON DIOXIDE 24 22 - 29 mmol/L ANION GAP 12 3 - 13 mmol/L UREA NITROGEN 26 (H) 8 - 21 mg/dL CREATININE 1.39 (H) 0.72 - 1.25 mg/dL GLUCOSE 185 (H) 74 - 100 mg/dL CALCIUM 8.3 (L) 8.4 - 10.2 mg/dL AST (SGOT) 241 (H) <34 U/L ALT 195 (H) <40 U/L ALKALINE PHOSPHATASE 27 (L) 40 - 150 U/L ALBUMIN 2.1 (L) 3.5 - 5.0 g/dL BILIRUBIN, TOTAL 0.4 <1.2 mg/dL TOTAL PROTEIN 4.7 (L) 6.4 - 8.3 g/dL eGFR 67.8 >60.0 mL/min/1.73m*2 ECG 12 lead Collection Time: 12/26/24 1:04 PM Result Value Ref Range Heart Rate 63 bpm QRSD Interval 92 ms QT Interval 456 ms QTC Interval 468 ms P [place] 58 degrees QRS [place] 55 degrees T Wave [place] 54 degrees [place] Interval 150 ms POCT glucose meter Collection Time: 12/26/24 3:39 PM Result Value Ref Range Glucose 174 (H) 70 - 100 mg/dL Blood gas, venous Collection Time: 12/26/24 3:48 PM Result Value Ref Range pH, Venous 7.461 (H) 7.330 - 7.430 pCO2, Venous 47.2 40.0 - 55.0 mm Hg pO2, Venous 33.6 mm Hg HCO3, Venous 32.9 (H) 23.0 - 27.0 mmol/L O2 Sat, Venous 58.7 % Base Excess, Venous 8.1 (H) -3.0 - 3.0 mmol/L Hgb, blood gas 10.1 Screen only g/dl TCO2, Venous 34.3 (H) 24.0 - 28.0 mmol/L Source Of Oxygen Ventilator Amount Of Oxygen POCT glucose meter Collection Time: 12/26/24 9:00 PM Result Value Ref Range Glucose 157 (H) 70 - 100 mg/dL Blood Gas, Arterial Collection Time: 12/27/24 3:19 AM Result Value Ref Range pH, Arterial 7.521 (H) 7.350 - 7.450 pCO2, Arterial 37.4 >35.0 - <45.0 mm Hg pO2, Arterial 144.9 (H) 80.0 - 100.0 mm Hg HCO3, Arterial 29.9 (H) 21.0 - 25.0 mmol/L O2 Sat, Arterial 98.1 95.0 - 100.0 % Base Excess, Arterial 6.8 (H) -3.0 - 3.0 mmol/L CO2 Total 31.1 (H) 23.0 - 27.0 mmol/L Hgb, blood gas 12.0 Screen only g/dl Source Of Oxygen Ventilator Amount Of Oxygen 40 CBC auto differential Collection Time: 12/27/24 3:20 AM Result Value Ref Range Auto WBC 10.5 3.6 - 10.7 10*3/uL RBC 3.08 (L) 4.40 - 5.90 10*6/uL Hemoglobin 9.6 (L) 13.0 - 18.0 g/dL Hematocrit 26.4 (L) 40.0 - 52.0 % MCV 85.7 77.0 - 99.0 fL MCH 31.2 26.0 - 34.0 pg MCHC 36.4 (H) 30.5 - 36.0 % RDW 13.2 11.5 - 15.0 % Platelets 130 (L) 140 - 440 10*3/uL MPV 10.1 9.0 - 12.7 fL IPF 4 Calcium, ionized Collection Time: 12/27/24 3:20 AM Result Value Ref Range Calcium, Ion 3.80 (L) 4.30 - 5.20 mg/dL PH, IONIZED CALCIUM 7.58 (H) 7.31 - 7.46 Phosphorus Collection Time: 12/27/24 3:20 AM Result Value Ref Range PHOSPHORUS 3.2 2.3 - 4.7 mg/dL Magnesium Collection Time: 12/27/24 3:20 AM Result Value Ref Range MAGNESIUM 2.3 1.6 - 2.6 mg/dL CK Collection Time: 12/27/24 3:20 AM Result Value Ref Range CK 5,171 (H) 30 - 185 U/L Comprehensive metabolic panel Collection Time: 12/27/24 3:20 AM Result Value Ref Range SODIUM 133 (L) 136 - 145 mmol/L POTASSIUM 3.0 (L) 3.5 - 5.1 mmol/L CHLORIDE 97 (L) 98 - 107 mmol/L CARBON DIOXIDE 27 22 - 29 mmol/L ANION GAP 9 3 - 13 mmol/L UREA NITROGEN 26 (H) 8 - 21 mg/dL CREATININE 1.20 0.72 - 1.25 mg/dL GLUCOSE 153 (H) 74 - 100 mg/dL CALCIUM 8.4 8.4 - 10.2 mg/dL AST (SGOT) 212 (H) <34 U/L ALT 181 (H) <40 U/L ALKALINE PHOSPHATASE 28 (L) 40 - 150 U/L ALBUMIN 2.2 (L) 3.5 - 5.0 g/dL BILIRUBIN, TOTAL 0.5 <1.2 mg/dL TOTAL PROTEIN 5.3 (L) 6.4 - 8.3 g/dL eGFR 80.9 >60.0 mL/min/1.73m*2 Man Differential Collection Time: 12/27/24 3:20 AM Result Value Ref Range Adjusted WBC 10.5 3.6 - 10.7 10*3/uL Neutrophils % 60 38 - 82 % Bands % 23 (H) <=0 % Lymphocytes % 8 (L) 15 - 45 % Monocytes % 6 5 - 13 % Eosinophils % 1 0 - 6 % Metamyelocytes % 2 (H) <=0 % Absolute Neutrophil Count 8.7 (H) 1.8 - 7.0 10*3/uL Segs Absolute 8.7 (H) 1.8 - 7.5 10*3/uL Bands Absolute 2.4 (H) <=0.0 10*3/uL Lymphocytes Absolute 0.8 (L) 1.0 - 4.3 10*3/uL Monocytes Absolute 0.6 0.0 - 0.9 10*3/uL Eosinophils Absolute 0.1 0.0 - 0.5 10*3/uL Metamyelocytes Absolute 0.2 (H) <=0.0 10*3/uL Poikilocytes Slight (A) (none) Dacryocytes Slight (A) (none) Smudge Cells Present (A) (none) per 100 WBCs PLT Morphology Normal Total Counted 100 Neutrophils Manual 60 Lymphocytes Manual 8 Monocytes Manual 6 Eosinophils Manual 1 0 - 1 Bands Manual 23 Metamyelocytes Manual 2 Differential Method Manual differential performed POCT glucose meter Collection Time: 12/27/24 3:22 AM Result Value Ref Range Glucose 165 (H) 70 - 100 mg/dL Sodium with creatinine, urine, random Collection Time: 12/27/24 6:07 AM Result Value Ref Range SODIUM, URINE 64 mmol/L CREATININE, URINE 157.1 63.0 - 166.0 mg/dL SODIUM, URINE, FRACTIONAL EXCRETION 0.4 SODIUM, URINE, TUBULAR REABSORPTION 1.0 Osmolality, urine Collection Time: 12/27/24 6:07 AM Result Value Ref Range OSMOLALITY, URINE 903 300 - 1,000 mOsm/kg Since admission: Recent Labs 12/26/24 0556 12/26/24 1203 12/27/24 0320 CKTOTAL 9,201* 7,535* 5,171* Recent Labs 12/27/24 0320 ALKPHOS 28* ALT 181* AST 212* BILITOT 0.5 Coagulation: Recent Labs 12/24/24 2239 INR 1.2* Stroke Specific: Lipids: Recent Labs 12/24/24 2239 CHOL 166 TRIG 113 HDL 40* Radiology Personal review: CT: pending ASSESSMENT / PLAN / SUGGESTIONS : Concern for anoxic brain injury/Post arrest encephalopathy OSH cardiac arrest Acute hypoxic respiratory failure Pneumonia Septic shock ABRIL (resolved) Transaminites Rhabdomyolosis ETOH use Marijuana use Polysubstance abuse/Cocaine Current vape use 3 Decreased EF PLAN: -CTH pending -possible need for MRI 72 hours from event depending on clinical improvement off sedation/paralytics -wean sedation as able -maintain euvolemic -Maintain euthermic -continuous EEG for at least 24 hours while off sedation and paralytics -no need for antiepileptic drugs -okay for seizure precautions Family and girlfriend updated at the bedside. We will continue to follow exam. I spent a total of 35 minutes of critical care time for this neurocritically ill patient who is at high risk for both clinical and neurological decline due to further brain injury, which can occur unpredictably and rapidly cause multi-organ dysfunction. In that time I reviewed the chart including MAR, labs, neuroimaging, other imaging studies and discussed my diagnostic impression and patient's plan of care with the consulting team and patient's family members/surrogate decision makers (in cases where the patient is incapacitated and unable to participate in their own care). Cosigned by Jennifer Espinosa MD at 12/27/2024 3:00 PM EDT Associated attestation - Jennifer Espinosa MD - 12/27/2024 3:00 PM EDT Neurocritical Care Attending Addendum: I have personally performed an face to face diagnostic evaluation on this patient . I have reviewed and agree with the care plan as documented below by my JORGE. My examination, personal interpretation of diagnostics, assessment/plan are as follows: 34-year-old patient in [id number] cardiac arrest, initial rhythm ventricular fibrillation, cardiac arrest occurring in the setting of acute hypoxemic respiratory failure secondary to pneumonia. Transferred from [place] to [facility] ICU, complicated by severe ARDS requiring deep sedation, paralytic infusion and proning. Respiratory status is improved, no longer proned this morning. Paralytics stopped and sedation being weaned Examination: Confounded by deep sedation and recent use of paralytics Pupils 3 mm round equal reactive to light with pupillometer Corneals present bilaterally No gag, unable to elicit a cough reflex-because we were unable to pass the suction catheter through the ET tube. Non contrast CTH 12/27/24-bifrontal cerebral atrophy out of proportion to patient's age, intact childs-white matter differentiation. Basal cisterns are patent Assessment: Postcardiac arrest, [id number]-although initial rhythm is V-fib, cardiac arrest occurred in the setting of acute respiratory illness (pneumonia), complicated by severe ARDS At this time too early for neurological prognostication, multiple confounders with recent use of paralytics still on sedative infusion. Continues EEG- with generalized slowing, no seizures-reassuring thus far Plan: -Complete 48 hours of continuous EEG monitoring and if this has been stable can discontinue -Continue neurochecks every 2 hourly with pupillometer -Wean sedatives as able, will follow neurological exam -MRI brain at 72 hours postarrest. NCC to follow. I spent a total of 15 minutes in independent critical care time for this neurocritically ill patient who is at high risk for both clinical and neurological decline due to further brain injury, which can occur unpredictably and rapidly cause multi-organ dysfunction. In that time I reviewed the chart including MAR, labs, neuroimaging, other imaging studies and discussed my diagnostic impression and patient's plan of care with my JORGE/resident, the consulting team and patient's family members/surrogate decision makers (in cases where the patient is incapacitated and unable to participate in their own care). Jennifer Espinosa MD Neurocritical Care Attending Associated Order(s): IP CONSULT TO CARDIOLOGY [facility] [place] [facility] Cardiology /Electrophysiology Consult Note Reason for Consult/Chief Complaint: Cardiac arrest Referring provider: Dr. 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 male with a history of polysubstance abuse (alcohol, tobacco, marijuana, cocaine) who presented as an ylw-rs-lmliroto cardiac arrest. History obtained from chart review and family at bedside, as patient is intubated and sedated. He was at his apartment drinking alcohol and smoking marijuana the evening of his presentation. Per family he had had some chest pain and palpitations earlier in the day. His girlfriend woke up and noted that he was sitting on the couch unresponsive with vomit on his shirt. She then called EMS who found him pulseless with rhythm VF. He was shocked with 120 J with next rhythm asystole. CPR lasted 12 minutes. He was brought to [facility] and was subsequently transferred to [facility]. Per family, his paternal grandfather unexpectedly at age 52 when on a walk. Per their report he got an autopsy which said he had a "massive heart attack". On arrival to [facility], he was intubated and sedated. Found to have an elevated Cr, acute liver injury and hyperkalemia. Assessment/Plan Cardiac arrest -Unclear circumstances and initial rhythm surrounding his PEA arrest. He was reportedly shocked from VF into asystole - he may also could have had an aspiration event based on history which caused PEA which degenerated into VF. EF 45%, however possibly cardioplegic post-arrest. There is no evidence of Brugada pattern on ECG's obtained here. Recommend ischemic evaluation when appropriate per primary team He may need a primary prevention ICD prior to discharge, however will await above and pending neurologic recovery Nonoliguric ABRIL Acute liver injury Need for mechanical ventilation -Required post-arrest. Supportive care per primary I, Dr. Enio Kemp , saw and evaluated the patient. I personally obtained the pérez and critical portions of the history and physical exam. I reviewed the chart, the fellow's documentation, and discussed the patient with the fellow. I agree with the fellow's medical decision making and have edited the note to reflect my clinical findings and my assessment and plan. 34-year-old presents with cardiac arrest, with circumstance not entirely clear. No rhythm strips are available for review of the ventricular fibrillation. The entire event could have been asystole in the first place, hard to know. Would proceed as if he had a ventricular fibrillation arrest of unclear etiology. Apparently the patient was complaining of some degree of chest pain prior. He is receiving supportive care, neurologic status is being followed, if when progresses, would recommend ischemic evaluation with cardiac catheterization. If no reversible cause identified and no rhythm strips of the event are available we will likely recommend ICD, subcutaneous system. Medications: Acetaminophen, 650 mg, Per G Tube, q6h Or acetaminophen, 650 mg, Rectal, q6h cefepime, 2,000 mg, IntraVENous, q8h folic acid 1 mg in dextrose 5 % 50 mL IVPB, 1 mg, IntraVENous, Daily heparin, 5,000 Units, SubCUTAneous, 2 times per day Hydrocortisone Sod Suc (PF), 100 mg, IntraVENous, q8h insulin NPH, 5 Units, SubCUTAneous, q12h insulin regular, 0-12 Units, SubCUTAneous, q6h mupirocin, 1 Application, Nasal, BID pantoprazole, 40 mg, Oral, Nightly Or pantoprazole (ProtoNix) 40 mg in sodium chloride (PF) 0.9 % 10 mL injection, 40 mg, IntraVENous, Nightly thiamine (Vitamin B1) 500 mg in sodium chloride 0.9 % 100 mL IVPB, 500 mg, IntraVENous, q8h Followed by thiamine (Vitamin B1) 250 mg in sodium chloride 0.9 % 100 mL IVPB, 250 mg, IntraVENous, q24h Followed by [START ON 12/31/2024] thiamine, 100 mg, Oral, Daily vancomycin, 1,750 mg, IntraVENous, q24h Infusion Medications: cisatracurium (PF) (Nimbex) 200 mg in sodium chloride 0.9 % 100 mL infusion, 0.5-10 mcg/kg/min, Last Rate: 1 mcg/kg/min (12/26/24725) fentaNYL, 25-200 mcg/hr, Last Rate: 200 mcg/hr (12/26/24725) midazolam, 1-10 mg/hr, Last Rate: 2 mg/hr (12/26/24726) norepinephrine, 0.01-3.3 mcg/kg/min, Last Rate: 0.02 mcg/kg/min (12/26/24 0800) propofol, 5-50 mcg/kg/min, Last Rate: 50 mcg/kg/min (12/26/24 0758) sodium bicarbonate 150 mEq in sterile water 1,000 mL infusion, 100 mL/hr, Last Rate: 100 mL/hr (12/26/24727) vasopressin in D5W, 0.01-0.03 Units/min, Last Rate: 0.03 Units/min (12/26/24727) Physical Examination: Vitals: 12/26/24 0700 12/26/24 0800 12/26/24 0801 12/26/24 0851 BP: 100/68 Pulse: 70 75 Resp: 18 18 Temp: TempSrc: SpO2: 96% 98% Weight: Height: 5' 6" (1.676 m) Intake/Output Summary (Last 24 hours) at 12/26/2024 1011 Last data filed at 12/26/2024 0900 Gross per 24 hour Intake 6873 ml Output 985 ml Net 5888 ml Wt Readings from Last 3 Encounters: 12/25/24 153 lb (69.4 kg) Physical Exam General: intubated Cardiovascular: RRR, no murmurs Pulmonary: ventilated Extremities: no lower extremity edema Laboratory Tests: TROPONIN I, CONVENTIONAL SENSITIVITY CK Date Value Ref Range Status 12/26/2024 9,201 (H) 30 - 185 U/L Final 12/25/2024 11,279 (H) 30 - 185 U/L Final 12/25/2024 13,981 (H) 30 - 185 U/L Final 12/25/2024 13,800 (H) 30 - 185 U/L Final 12/25/2024 15,846 (H) 30 - 185 U/L Final TROPONIN I, HIGH SENSITIVITY Troponin HS Serial Baseline Date Value Ref Range Status 12/24/2024 1,053 (HH) <=35 ng/L Final Comment: In individuals presenting with symptoms > 2h, a baseline troponin <= 5 ng/L suggests acute cardiac injury is unlikely and further serial testing is generally not indicated. 2h Troponin HS (Serial 2nd Troponin) Date Value Ref Range Status 12/24/2024 1,633 (HH) <=35 ng/L Final Comment: Rising or falling troponin delta greater than 15 ng/L as compared to baseline value is significant for acute cardiac injury. No results found for: TROPDELTBASE No results found for: "TROPHS3" No results found for: TROPDELTSEC Recent Labs 12/25/24 1634 12/25/24 2036 12/25/24 2352 12/26/24 0406 12/26/24 0753 NA 132* 132* 133* 133* 134* K 5.6* 5.1 4.7 4.3 3.9 CL 100 96* 98 98 96* CO2 21* 22 21* 23 25 BUN 29* 29* 30* 27* 26* CREATININE 1.95* 1.89* 1.79* 1.63* 1.49* EGFR 45.2* 46.9* 50.1* 56.0* 62.4 Recent Labs 12/24/24203312/25/24 0147 12/25/24 0359 12/25/24 1120 12/25/24 1635 12/25/24203512/25/24 2353 12/26/24 0406 12/26/24 0557 WBC 2.4* -- 3.3* -- -- -- -- 8.8 -- HGB 15.9 15.1 < > 13.2 < > 12.5 12.5 12.2 11.0* 11.6 HCT 43.9 -- 38.0* -- -- -- -- 29.8* -- MCV 88.3 -- 86.2 -- -- -- -- 83.0 -- PLT 229 -- 165 -- -- -- -- 117* -- < > = values in this interval not displayed. Lab Results Component Value Date HGBA1C 5.3 12/26/2024 Lab Results Component Value Date TSH 1.89 12/24/2024 Lab Results Component Value Date CHOL 166 12/24/2024 Lab Results Component Value Date HDL 40 (L) 12/24/2024 Lab Results Component Value Date LDLCALC 103 (H) 12/24/2024 Lab Results Component Value Date TRIG 113 12/24/2024 No results found for: "CHOLHDL" No results found for: LDLCHOLESTER Recent Labs 12/24/242033 BNP 466* Recent Labs 12/24/242238 INR 1.2* Results from last 7 days Lab Units 12/26/24 0753 12/26/246 12/25/24 2352 AST U/L 273* 319* 374* ALT U/L 211* 235* 253* No results found for: "IRON", "TIBC", "FERRITIN" Radiology: CXR: personally reviewed: Cardiac Tests Personally Reviewed: Last EKG 12/24/24 ECG 12-LEAD (Preliminary) This result has not been signed. Information might be incomplete. Impression Sinus rhythm ST elev, probable normal early repol pattern Borderline prolonged QT interval Telemetry findings: sinus rhythm with no events Reports reviewed: Last Echo 12/24/24 TRANSTHORACIC ECHOCARDIOGRAM (TTE) COMPLETE (CONTRAST/BUBBLE/3D PRN) 12/25/2024 1:40 PM (Final) Interpretation Summary Left Ventricle: Left ventricle is smaller than normal. Normal wall thickness. Mildly reduced left ventricular systolic function. EF by 2D Simpsons Biplane is 45%. Mild global hypokinesis present. Right Ventricle: Right ventricle size is normal. Moderately reduced systolic function. No significant valvular abnormalities. Signed by: Rory Virk MD on 12/25/2024 1:40 PM Last Cath No results found for this or any previous visit. Last Stress Test No results found for this or any previous visit. Last EP study No results found for this or any previous visit. EF BP Date Value Ref Range Status 12/25/2024 45 (A) 55 - 100 % Final Harjeet Schwab MD DATE of SERVICE: 12/26/2024 Associated Order(s): IP CONSULT TO DIETITIAN; IP CONSULT TO DIETITIAN Nutrition Assessment Type and Reason for Visit: Initial, Consult (Steve sub score, TF ordering and management) Nutrition Recommendations/Plan: Propofol at 20.9 ml/hr provides 552 lipid kcals per day If pt is hemodynamically stable and EN is indicated, recommend to provide Vital HP at goal rate of 50 ml/hr + 552 propofol kcals, provides a total of 1752 kcal, 105 g protein, and 1003 ml free water (25 kcal and 1.5 g protein per kg IBW) RD will monitor route, intake, and tolerance of nutrition, overall nutrition status, and will follow weekly Malnutrition Assessment: Malnutrition Status: Insufficient data Nutrition Assessment: Per chart, pt with PMH including alcohol use, tobacco use, and cocaine use. Per family reports, patient was with friend smoking marijuana and drinking alcohol. Friend woke up to patient with vomit on shirt, nonresponsive and called EMS. Patient presented from [facility], reviewed information from paper chart: Upon EMS arrival, bystanders stated that he had a pulse, but when they checked he was pulseless. He was found to be in ventricular fibrillation so he was defibrillated at 120 J into asystole. They performed CPR for 12 minutes and 2 rounds of epinephrine were given prior to return of spontaneous circulation. They did note that he had a low blood pressure afterwards, as well as low blood sugar. They administered D10, and had intubated the patient. Normal CT head. Per EMS they gave 4 Narcan's initially on scene. Bedside echo on arrival with low normal LV function without focal WMAs. ICU consulted for vent management, concern for aspiration, possible sepsis and polysubstance use. Patient was found to have Pneumonia pcr +Staph, Strep, Haemophilus. Given concern for ARDS, potentially 2/2 aspiration pneumonia, patient was proned overnight. Additionally found to have rhabdomyolysis, ABRIL, and NAGMA and is currently on bicarb gtt. Estimated Daily Nutrient Needs: Energy Requirements Based On: Kcal/kg Weight Used for Energy Requirements: Admission Weight for Energy Calculation (kg): 69.5 kg (25-30 kcal/kg) Total Energy Requirements (kcals/day): 4248-3036 Weight Used for Protein Requirements: Admission Weight in Kg Used for Protein Requirements: 69.5 kg (1.2-1.4 g/kg) Estimated Total Protein (g/day): 83-97 Estimated Daily Total Fluid (ml/day): per MD Additional Calorie Sources: Propofol at 20.9 ml/hr = 552 kcal/day Nutrition Related Findings: Steve Scale Score: 14. Wound Type: None Net IO Since Admission: 9,074 mL [12/26/24 0815] Edema: RUE Edema: Mild, LUE Edema: Mild, RLE Edema: Non-pitting, LLE Edema: Non-pitting Bowel Sounds (All Quadrants): Active Abdomen Inspection: Unable to assess (pt proned) O2 Delivery Method: Ventilator, FiO2 (%): 40 %, Labs and meds reviewed: Acetaminophen, 650 mg, Per G Tube, q6h Or acetaminophen, 650 mg, Rectal, q6h calcium gluconate, 4,000 mg, IntraVENous, Once cefepime, 2,000 mg, IntraVENous, q8h folic acid 1 mg in dextrose 5 % 50 mL IVPB, 1 mg, IntraVENous, Daily heparin, 5,000 Units, SubCUTAneous, 2 times per day Hydrocortisone Sod Suc (PF), 100 mg, IntraVENous, q8h insulin NPH, 5 Units, SubCUTAneous, q12h insulin regular, 0-12 Units, SubCUTAneous, q6h mupirocin, 1 Application, Nasal, BID pantoprazole, 40 mg, Oral, Nightly Or pantoprazole (ProtoNix) 40 mg in sodium chloride (PF) 0.9 % 10 mL injection, 40 mg, IntraVENous, Nightly thiamine (Vitamin B1) 500 mg in sodium chloride 0.9 % 100 mL IVPB, 500 mg, IntraVENous, q8h Followed by thiamine (Vitamin B1) 250 mg in sodium chloride 0.9 % 100 mL IVPB, 250 mg, IntraVENous, q24h Followed by [START ON 12/31/2024] thiamine, 100 mg, Oral, Daily vancomycin, 1,750 mg, IntraVENous, q24h cisatracurium (PF) (Nimbex) 200 mg in sodium chloride 0.9 % 100 mL infusion, 0.5-10 mcg/kg/min, Last Rate: 1 mcg/kg/min (12/26/24725) fentaNYL, 25-200 mcg/hr, Last Rate: 200 mcg/hr (12/26/24725) midazolam, 1-10 mg/hr, Last Rate: 2 mg/hr (12/26/24726) norepinephrine, 0.01-3.3 mcg/kg/min, Last Rate: 0.02 mcg/kg/min (12/26/24 0800) propofol, 5-50 mcg/kg/min, Last Rate: 50 mcg/kg/min (12/26/24 0758) sodium bicarbonate 150 mEq in sterile water 1,000 mL infusion, 100 mL/hr, Last Rate: 100 mL/hr (12/26/24727) vasopressin in D5W, 0.01-0.03 Units/min, Last Rate: 0.03 Units/min (12/26/24727) BMP: Recent Labs 12/24/24203312/24/24223812/25/24 1120 12/25/24 1634 12/25/24203512/25/24 2352 12/26/24 0406 NA 136 < > 137 < > 132* 133* 133* K 6.5* < > 4.5 < > 5.1 4.7 4.3 CL 108* < > 104 < > 96* 98 98 CO2 18* < > 22 < > 22 21* 23 BUN 23* < > 28* < > 29* 30* 27* CREATININE 2.14* < > 2.04* < > 1.89* 1.79* 1.63* GLUCOSE 73* < > 221* < > 282* 257* 202* CALCIUM 7.8* < > 7.2* < > 7.9* 7.9* 8.0* MG 2.1 -- 1.2* -- -- -- 2.3 PHOS 3.9 -- 3.8 -- -- -- 4.2 < > = values in this interval not displayed. Recent Labs 12/24/24 2247 12/25/24 0110 12/25/24 0658 12/25/24 1026 12/26/24 0341 POCGLU 81 87 162* 250* 223* Lab Results Component Value Date HGBA1C 5.3 12/26/2024 Lab Results Component Value Date EFBP 45 (A) 12/25/2024 Lab Results Component Value Date CHOL 166 12/24/2024 HDL 40 (L) 12/24/2024 TRIG 113 12/24/2024 Current Nutrition Therapies: NPO diet with enteral medications Current Oral Intake Average Meal Intake: NPO Average Supplements Intake: None Ordered Additional Calorie Sources Additional Calorie Sources: Propofol at 20.9 ml/hr = 552 kcal/day Anthropometric Measures: Height: 167.6 cm (5' 6") Current Body Weight: 69.4 kg (153 lb) Admission Body Weight: 69.5 kg (153 lb 3.5 oz) Usual Body Weight: (no recent docuemnted weights) [place] Body Weight (lbs) (Calculated): 142 lbs [place] Body Weight (Kg) (Calculated): 65 kg % [place] Body Weight (Calculated): 107.7 % BMI (kg/m2) (Calculated): 24.7 BMI Categories: Normal Weight (BMI 18.5-24.9) Wt Readings from Last 10 Encounters: 12/25/24 69.4 kg (153 lb) Nutrition Diagnosis: Inadequate oral intake related to impaired respiratory function as evidenced by NPO or clear liquid status due to medical condition, intubation Nutrition Interventions: Food and/or Nutrient Delivery: Continue NPO, Start Tube Feeding Nutrition Education/Counseling: No recommendation at this time Coordination of Nutrition Care: Continue to monitor while inpatient Goals: Goals: Initiate nutrition support, Meet at least 75% of estimated needs, Tolerate nutrition support at goal rate, by next RD assessment Nutrition Monitoring and Evaluation: Behavioral-Environmental Outcomes: None Identified Food/Nutrient Intake Outcomes: Enteral Nutrition Intake/Tolerance Physical Signs/Symptoms Outcomes: Biochemical Data, GI Status, Fluid Status or Edema, Hemodynamic Status, Nutrition Focused Physical Findings, Skin, Weight Discharge Planning: Too soon to determine Tala Campos RD, LD Contact: *[phone] or via Gate[employer] chat Images from the original note were not included. Internal Medicine: MICU Initial Consult Name: Chelsea Cole : 12/27/1989(34 y.o.) Date: 12/24/24 Attending: Dr. Rex Ellis Subjective: Chief Complaint: Post Arrest HPI: Per transfer report, EMS state pt was sleeping at home when family was unable to wake him. Pt reportedly initially had pulse, decompensated to Vfib arrest on EMS arrival. Defibrilated at 120J into asystole. Subsequently 12 minutes of CPR were performed with 2mg epi given IO before rosc achieved. Pt reportedly hypoglycemic and hypotensive after ROSC so D10 was administered. Pt taken to [facility] and subsequently transferred to [facility]. No past medical history on file. Per pt's brother and mother, pt does not have any known chronic health problems. No past surgical history on file. No family history on file. Per pt's brother and mother, Pt drinks 3-4 beers per day. He has never undergone alcohol withdrawal. + cannabis use, + vaping nicotine. Social History Socioeconomic History Marital status: Single Spouse name: Not on file Number of children: Not on file Years of education: Not on file Highest education level: Not on file Occupational History Not on file Tobacco Use Smoking status: Not on file Smokeless tobacco: Not on file Substance and Sexual Activity Alcohol use: Not on file Drug use: Not on file Sexual activity: Not on file Other Topics Concern Not on file Social History Narrative Not on file Social Drivers of Health Financial Resource Strain: Not on file Food Insecurity: Not on file Transportation Needs: Not on file Physical Activity: Not on file Stress: Not on file Social Connections: Not on file Intimate Partner Violence: Not on file Housing Stability: Not on file Not on File Prior to Admission medications Not on File Objective: Oxygen Delivery: VITALS: BP (!) 81/62 Pulse 99 Resp 20 SpO2 91% CURRENT PULSE OXIMETRY: SpO2: 91 % Review of Systems Constitutional: General Appearance []WDWN []Obese []Cachectic []Thin [x]Ill Sedated adult male Eyes: Inspection of Pupils/Irises Pupils round and react: [x]Yes []No Sclera: []Icteric [x]Non-Icteric Inspection of Conjunctiva/Lids Conjunctiva: []Injected [x]Non-Injected Lids: [x]Intact []Lesion Present ENT/Mouth: External Inspection of ears/nose [x] Normal [] Scar/Lesion/Mass Inspection of teeth/lips/gums Dentition: [x][place] Teeth []Dentures Lips/Gums: [x]Intact []Lesion Present Mucosa: [][place] [x]Moist []Dry Neck: External Appearance Overall Appearance: [x]Normal []Lesion/Mass/Crepitus Present Trachea midline: [x]Yes []No Respiratory: Respiratory effort []Labored []Non-Labored [x] Mechanically-Ventilated Auscultation []Clear [x]Crackles []Wheezes [][place] Cardiovascular: Auscultation Rate: [x]Regular []Irregular []Tachycardia []Bradycardia Rhythm: [x]Regular []Irregular Murmur: []Present [x]Absent Extremities Peripheral Edema: []Present [x]Absent Varicosities: []Present [x]Absent Gastrointestinal: Abdomen Palpation: [x]Soft []Firm []Tender []Non-Tender []Distended []Non-distended Mass: []Present [x]Absent Bowel Sounds: []Present []Absent Hernia: []Present []Absent Liver/Spleen: []Hepatosplenomegaly [x]Organomegaly Absent Musculoskeletal: Inspection of Digits and Nails Cyanosis: []Present [x]Absent Clubbing: []Present [x]Absent Ischemia: []Present [x]Absent Infection: []Present []Absent Extremities MILLS Equally: Except ([]RUE []RLE []LUE []LLE) Strength/Tone: Intact and Normal ([]RUE []RLE []LUE []LLE) Skin: Inspection []Normal []Rash []Lesion []Ulcer Palpation []Warm []Cool []Dry []Clammy []Nodules []Induration []Skin-tightening Cap-Refill: [] <3 sec [] >3 seconds (delayed) Neurologic: GCS EYE: 1 - No eye opening GCS MOTOR: 4 - Withdraws from pain GCS VERBAL: 1 - No response Total GCS: 6 [] Sensation grossly intact Psych: Mental Status Alert: []Yes [x] No Oriented: [x]x0 []X1 []X2 []x3 Mood/Affect []Normal []Flat []Agitated []Depressed []Anxious []Calm []Sedated []NAD [facility] within last 24 hours- BMP: No results for input(s): "NA", "K", "CL", "CO2", "BUN", "CREATININE", "CALCIUM", "MG", "PHOS" in the last 72 hours. LFTs: No results for input(s): "AST", "ALT", "PROT", "ALBUMIN", "BILITOT", "BILIRUBINU", "ALKPHOS", "LIPASE" in the last 72 hours. Glucose: No results for input(s): "GLUCOSE", "POCGLU", "BHYDRXBUT" in the last 72 hours. Procal: No results for input(s): "PROCAL" in the last 72 hours. CBC: Recent Labs 12/24/242033 HGB 15.9 ABGs: Recent Labs 12/24/242033 PHART 7.255* [id number] 42.7 PO2ART 57.9* [id number] 18.5* [id number] Ventilator Lactic Acid: No results for input(s): "LACTATE" in the last 72 hours. INR: No results for input(s): "INR" in the last 72 hours. Cardiac Injury Profile: No results for input(s): "CKTOTAL", "CKMB", "TROPONINI" in the last 72 hours. Labs in Last 3 months: No results found for: "TSH", "VITD25", "PSA", "INR", "GLUF" Microbiology- Urine Cx: No results found for: URINECX Blood Cx: No results found for: BLOODCX Sputum Cx: No results found for: RESPCULT Gram Stain: No results found for: "LABGRAM" PNA PCR: No results found for: HUMANMETAPNE COVID19: No results found for: COVID19 Legionella Ag: No results found for: "LEGIONELLAPN" Strep Ag: No results for input(s): "STREPPNEUMO" in the last 72 hours. Imaging- EKG reviewed. Per my personal interpretation: There is normal rate There is sinus rhythm There is normal axis There is no evidence of AV block There is no evidence of bundle branch block There may be T-wave morphology changes consistent with hyperkalemia There is no evidence of acute myocardial ischemia Chest x-ray reviewed. Per my personal interpretation: The mediastinum is not enlarged. There is no air under the diaphragm. The pleura appear unremarkable. There are diffuse opacities in both lungs Osseous structures appear unremarkable. The trachea is midline. ETT in place There are bilateral opacities which may indicate early inflammatory or infectious process Assessment and Plan: Principal Problem: Cardiac arrest (HCC) Assessment: S/P cardiac Arrest Hypotension Metabolic acidosis Hyperkalemia Hypoglycemia Alcohol abuse THC abuse Plan: - Unknown etiology - Management per CCU primary 2. - systolics in low 60s - peripheral levophed started 3 - Setting of post arrest - pH 7.255, HCO3- 18.5 - lactate pending 4 - K 6.5, possible peaked T waves on EKG, no P wave flattening - calcium gluconate ordered 5. - received D10 per EMS - Q1 POCT glucose checks - PRN insulin/dextrose ordered 6. - 3-4 beers daily per family, no known hx of withdrawal - thiamine, folate ordered - Lorazepam PRN ordered 7. - can discuss cessation once stabilized GI Prophylaxis: none, management per primary DVT Prophylaxis: Heparin subcutaneous management per primary BMI Classification: There is no height or weight on file to calculate BMI. normal BMI 18.5-24.9 Disposition: Remain in ICU Status Critical Care Time: 45 Total critical care time caring for this patient with life threatening, unstable organ failure, including direct patient contact, management of life support systems, review of data including imaging and labs, discussions with other team members and physicians, excluding procedures. Cosigned by Rex Ellis MD at 12/25/2024 7:03 AM EDT documented in this encounter [facility] 2025 Hospital Discharg e instructions EJ Carballo CNP - 2025 1:31 PM EDT Violetta, for the health of your heart & liver it's critical that you stop drinking alcoholic beer, stop cigarettes, stop marijuana. It may be difficult to stop w/out support and help. For help, you can schedule appointment with one of our Addiction Counselors for Our Intensive Outpatient Program: [phone] To discuss the anticraving medication, Acamprosate, schedule to see one of our Doctors or Specialized Nurses: [phone] We have locations at [facility], [facility], [facility] Closer to your home, you can call [facility] in [facility]; Dr Shea Srinivasan will be happy to see you. [email or web address] [address] [address] al documented in this encounter [facility] 01-05-2025 Note MRI screening form r eviewed with patient, patient agreeable to IV insertion tomorrow morning before procedure. Patient agreeable to metoprolol for procedure. [facility] 12-29-2024 Note Speech-Meter Inspector ology Received orders for a speech evaluation and treat. Patient is currently intubated and unable to participate. "Completed" orders and await re-consult 12- 24 hours post-extubation. [facility] 12-28-2024 Note [facility] 12-28-2024 Procedure note Associated Ord er(s): Bronchoscopy Bedside Disposable Post-Procedure Diagnose(s): Mucus plugging of bronchi Bronchoscopy Bedside Disposable Date/Time: 12/28/2024 10:14 PM Performed by: Travis Anaya MD Authorized by: Travis Anaya MD Consent: The indications, risks, benefits, alternatives to the procedure were explained to the patient/surrogate decision maker and their questions answered. Consent was obtained to proceed with the procedure. Timeout: Completed immediately prior to the start of the procedure which included verification of the correct patient, correct site and agreement on the procedure to be done. Anesthetic: Local anesthetic used: not applicable Sedation: Sedation: anxiolysis Indications: Indication: bronchial obstruction and other (see comment) Local anesthetic comment: episode of desat Procedure Details: Type: diagnostic and therapeutic Completed via: ETT Lung examined: Both Abnormalities: other (see comments) Abnormalities comments: diffiusely irritated airways with CHARMAINE significantly worse that right side. [place] , thin frotty secretions diffusely Post-procedure: Specimen sent to lab: yes Specimen source: right upper lobe Secretion description: other (see comment) Secretion description comment: pink and frotty Estimated blood loss: none Specify Complication(s): no apparent complications Assistants & Supervision: I personally performed the procedure documented as signed by this procedure note Associated Order(s): Intubation Post-Procedure Diagnose(s): Cardiac arrest (HCC) Intubation Date/Time: 12/28/2024 5:00 PM Performed by: Maverick Miramontes MD Authorized by: Maverick Miramontes MD Consent: The indications, risks, benefits, alternatives to the procedure were explained to the patient/surrogate decision maker and their questions answered. Consent was obtained to proceed with the procedure. Timeout: Completed immediately prior to the start of the procedure which included verification of the correct patient, correct site and agreement on the procedure to be done. Anesthetic: Local anesthetic used: not applicable Indications: Indications: airway protection and respiratory failure Preparation: Assessment: No concerns Mallampati score: I Neck mobility: Normal Pharmacologic strategy: rapid sequence Induction agents: Etomidate Paralytics: Rocuronium Procedure details: Preoxygenation: BiLevel Total number of attempts: 1 Successful intubation details: Intubation method: Oral Intubation technique: video-assisted Laryngoscope blade: Mac 3 Cormack-Lehane view: I Tube size (mm): 7.5 Tube type: Cuffed Placement assessment: ETT at lip (cm): 22 Tube secured with: ETT chavez Breath sounds: Equal Placement verification: CXR verification and end-tidal CO2 detector Follow-up chest x-ray: Completed Post-procedure: Estimated Blood Loss: None Specify complication(s): No apparent complications Assistants & Supervision: I personally performed the procedure documented as signed by this procedure note No supervision required The attending physician was physically present while the proceduralist performed pérez/critical components of the procedure. Attending: Dr. Spencer Ellis General Comments: ETT pulled back 1 cm after CXR taken Cosigned by Jamey Ellis MD at 12/28/2024 7:15 PM EDT Associated attestation - Jamey Ellis MD - 12/28/2024 7:15 PM EDT I have reviewed and agree with the resident/fellow/JORGE note I was physically present for pérez elements of the procedure Complications during procedure: None Images from the original note were not included. .. [facility] [address] [place] [id number] CONTINUOUS LONG-TERM VIDEO EEG MONITORING REPORT Patient Name: Chelsea Cole : 1990 Date of Study: 12/26/2024 Duration Recorded: 23:46:16 EEG#: [id number] DIRECTOR OF INCOME TAX: ELKIN Nye, R. EEG T. PROVIDER REQUESTING STUDY: Stefan Street MD REASON FOR EXAM: Evaluate for seizures DIAGNOSIS TAG: Hypoxic Ischemic Injury (HII) HISTORY: Chelsea Cole is a 34 y.o. male pt was sleeping at home when family was unable to wake him. Pt reportedly initially had pulse, decompensated to Vfib arrest on EMS arrival. Defibrilated at 120J into asystole. Subsequently 12 minutes of CPR were performed with 2mg epi given IO before rosc achieved. Pt reportedly hypoglycemic and hypotensive after ROSC so D10 was administered. Pt taken to [facility] and subsequently transferred to [facility]. MEDICATIONS: Current Facility-Administered Medications Medication Dose Route Frequency Provider Last Rate Last Admin [START ON 12/28/2024] chlorhexidine (Hibiclens) 4 % solution Topical Daily Atteh Lucio Miramontes MD dextrose 5 % infusion 100 mL/hr IntraVENous PRN Radha Myers DO dextrose 50 % solution 12.5 g 12.5 g IntraVENous PRN Radha Myers DO fentaNYL (Sublimaze) 1000 mcg in sodium chloride 0.9 % 100 mL 10 mcg/mL infusion 25-200 mcg/hr IntraVENous Continuous Stefan Street MD 20 mL/hr at 12/27/24 0513 200 mcg/hr at 12/27/24 0513 [START ON 12/28/2024] folic acid (Folvite) tablet 1 mg 1 mg Per NG/OG Tube Daily Aryan Wilkinson, glucagon (human recombinant) injection 1 mg 1 mg IntraMUSCular PRN Radha Myers, DO glucose oral gel 15 g 15 g Oral PRN Radha Myers, DO heparin injection 5,000 Units 5,000 Units SubCUTAneous 2 times per day Devi Hutson MD 5,000 Units at 12/27/24 0923 Hydrocortisone Sod Suc (PF) (Solu-CORTEF) injection 100 mg 100 mg IntraVENous q8h Rex Ellis MD 100 mg at 12/27/24 1019 insulin NPH (Isophane) (HumuLIN N,NovoLIN N) injection 5 Units 5 Units SubCUTAneous q12h Rex Ellis MD 5 Units at 12/27/24 0341 insulin regular (HumuLIN R,NovoLIN R) injection 0-12 Units 0-12 Units SubCUTAneous q6h Rex Ellis MD 2 Units at 12/27/24 0341 midazolam (Versed) 100 MG/100 ML infusion 1-10 mg/hr IntraVENous Continuous Rex Ellis MD Stopped at 12/27/24 1100 mupirocin (Bactroban) 2 % ointment 1 Application 1 Application Nasal BID Jodi Riggs DO 1 Application at 12/27/24 0923 naloxone (Narcan) injection 0.4 mg 0.4 mg IntraVENous q5 min PRN Jodi Riggs DO ondansetron ODT (Zofran-ODT) disintegrating tablet 4 mg 4 mg Oral q8h PRN Jodi Riggs DO Or ondansetron (Zofran) injection 4 mg 4 mg IntraVENous q6h PRN Jodi Riggs DO pantoprazole (ProtoNix) EC tablet 40 mg 40 mg Oral Nightly Radhaivan Myers DO Or pantoprazole (ProtoNix) 40 mg in sodium chloride (PF) 0.9 % 10 mL injection 40 mg IntraVENous Nightly Radha Myers DO 40 mg at 12/26/242114 piperacillin-tazobactam (Zosyn) 4,500 mg in sodium chloride 0.9 % 100 mL IVPB Mini-Bag Plus 4,500 mg IntraVENous q6h Maverick Miramontes MD 33.3 mL/hr at 12/27/24 0926 4,500 mg at 12/27/24 0926 propofol (Diprivan) infusion 5-50 mcg/kg/min IntraVENous Continuous Stefan Street MD 20.9 mL/hr at 12/27/24 0923 50 mcg/kg/min at 12/27/24 0923 sodium chloride 0.9 % infusion 5-250 mL/hr IntraVENous PRN Jodi Riggs DO sodium chloride 0.9% (NS) flush 5-40 mL 5-40 mL IntraCATHeter q8h Maverick Miramontes MD 10 mL at 12/27/24 0924 sodium chloride 0.9% (NS) flush 5-40 mL 5-40 mL IntraVENous PRN Maverick Miramontes MD thiamine (Vitamin B1) 250 mg in sodium chloride 0.9 % 100 mL IVPB 250 mg IntraVENous q24h Jodi Riggs DO Stopped at 12/26/242144 Followed by [START ON 12/31/2024] thiamine (Vitamin B1) tablet 100 mg 100 mg Oral Daily Jodi Riggs DO vasopressin (Vasostrict) 20 units in dextrose 5% 100 mL infusion 0.01-0.03 Units/min IntraVENous Continuous Rex Ellis MD 6 mL/hr at 12/27/24 0158 0.02 Units/min at 12/27/24 0158 TECHNICAL ASPECTS: This continuous scalp EEG study with video was carried out at [facility]. Scalp electrodes were positioned in person by an seating and mobility technologist, following patient education, according to the 10-20 International system of electrode placement and maintained for integrity and quality of the recording. EEG data with video was recorded continuously and digitally stored. The seating and mobility technologist reviewed all automated detections and manual events and prepared the data for archiving and provider review. Referential and bipolar montages were used for review. TECHNOLOGIST NOTES: No skull or scalp defects were observed. Patient is prone and can only be moved at scheduled times, was not able to move patient to do right bridger. This video-EEG monitoring was continuously monitored, 4 patients per technologist. BACKGROUND ACTIVITY: Posterior background activity: No observable posterior dominant rhythm was seen. Beta range: Diffuse alpha-beta range activity (11-25 Hz, 10-20 uV) was seen. Sleep: No sleep architecture was observed. Normal Variants: No normal variants were identified. SLOWING: Continuous (greater than 90% of the recording) diffuse delta range (0.5-2 Hz, 20-30 uV) slowing is seen with diffuse alpha-beta range (11-25 Hz, 10-15 uV) activity. These features were non-responsive to stimulation. 04:16:35 -Continuous slowing, generalized + intermixed fast activity, generalized (AP Bipolar, LFF=1Hz, HFF=70Hz, Sens=5 uV/mm) INTERICTAL EPILEPTIFORM ACTIVITY: No epileptiform activity was seen. ICTAL ACTIVITY: No ictal activity was seen. NON-EPILEPTIC EVENTS: None. ACTIVATION PROCEDURES: Photic stimulation was not performed. Hyperventilation was not performed. IMPRESSION AND ACTIONS TAKEN: This continuous EEG with video is abnormal. Continuous diffuse marked slowing is seen with intermixed diffuse fast activity. These features are non-responsive to stimulation. No interictal epileptiform activity or seizures are observed. The findings are supportive of a severe global encephalopathy which is confounded by sedation. Compared with the previous day of recording, no significant changes are observed. Will continue video-EEG monitoring to evaluate the evolution of this encephalopathy. Mauro Cid, PhD Clinical Neurophysiologist Jori Barillas MD PhD Epilepsy Attending Associated Order(s): EEG CONTINUOUS MONITORING Images from the original note were not included. .. [facility] [address], [place] [id number] CONTINUOUS LONG-TERM VIDEO EEG MONITORING REPORT Patient Name: Chelsea Cole : 12/27/1989 Date of Study: 12/25/2024 Duration Recorded: 02:51:44 EEG#: [id number] DIRECTOR OF INCOME TAX: ELKIN Nye, R. EEG T. PROVIDER REQUESTING STUDY: Stefan Street MD REASON FOR EXAM: Evaluate for seizures DIAGNOSIS TAG: Hypoxic Ischemic Injury (HII) HISTORY: Chelsea Cole is a 34 y.o. male pt was sleeping at home when family was unable to wake him. Pt reportedly initially had pulse, decompensated to Vfib arrest on EMS arrival. Defibrilated at 120J into asystole. Subsequently 12 minutes of CPR were performed with 2mg epi given IO before rosc achieved. Pt reportedly hypoglycemic and hypotensive after ROSC so D10 was administered. Pt taken to [facility] and subsequently transferred to [facility]. MEDICATIONS: Current Facility-Administered Medications Medication Dose Route Frequency Provider Last Rate Last Admin Acetaminophen (Tylenol) 650 MG/20.3ML solution 650 mg 650 mg Per G Tube q6h Radha Myers, DO 650 mg at 12/25/24 2115 Or acetaminophen (Tylenol) suppository 650 mg 650 mg Rectal q6h Radha Myers, DO cefepime (Maxipime) 2,000 mg in sodium chloride 0.9 % 50 mL IVPB Mini-Bag Plus 2,000 mg IntraVENous q12h Jodi Riggs DO Stopped at 12/25/24 1457 cisatracurium (PF) (Nimbex) 200 mg in sodium chloride 0.9 % 100 mL infusion 0.5-10 mcg/kg/min IntraVENous Continuous Stefan Street MD 3.12 mL/hr at 12/25/242129 1.5 mcg/kg/min at 12/25/242129 dextrose 5 % infusion 100 mL/hr IntraVENous PRN Antonio Morel MD dextrose 5 % infusion 100 mL/hr IntraVENous PRN Radha Myers DO dextrose 50 % solution 12.5 g 12.5 g IntraVENous PRN Antonio Morel MD dextrose 50 % solution 12.5 g 12.5 g IntraVENous PRN Radha Myers DO fentaNYL (Sublimaze) 1000 mcg in sodium chloride 0.9 % 100 mL 10 mcg/mL infusion 25-200 mcg/hr IntraVENous Continuous Stefan Street MD 20 mL/hr at 12/25/242103 200 mcg/hr at 12/25/242103 folic acid 1 mg in dextrose 5 % 50 mL IVPB 1 mg IntraVENous Daily Jodi Riggs DO Stopped at 12/25/24 0853 glucagon (human recombinant) injection 1 mg 1 mg IntraMUSCular PRN Antonio Morel MD glucagon (human recombinant) injection 1 mg 1 mg IntraMUSCular PRN Radha Myers DO glucose oral gel 15 g 15 g Oral PRN Antonio Morel MD glucose oral gel 15 g 15 g Oral PRN Radha Myers DO heparin injection 5,000 Units 5,000 Units SubCUTAneous 2 times per day Devi Hutson MD 5,000 Units at 12/25/242030 Hydrocortisone Sod Suc (PF) (Solu-CORTEF) injection 100 mg 100 mg IntraVENous q8h Rex Ellis MD 100 mg at 12/25/241830 LORazepam (Ativan) tablet 1 mg 1 mg Oral q1h PRN Jodi Riggs DO Or LORazepam (Ativan) injection 1 mg 1 mg IntraVENous q1h PRN Jodi Riggs DO Or LORazepam (Ativan) tablet 2 mg 2 mg Oral q1h PRN Jodi Riggs DO Or LORazepam (Ativan) injection 2 mg 2 mg IntraVENous q1h PRN Jodi Riggs DO midazolam (Versed) injection 2 mg 2 mg IntraVENous q1h PRN Stefan Street MD 2 mg at 12/25/241632 mupirocin (Bactroban) 2 % ointment 1 Application 1 Application Nasal BID Jodi Riggs DO 1 Application at 12/25/242033 naloxone (Narcan) injection 0.4 mg 0.4 mg IntraVENous q5 min PRN Jodi Riggs DO norepinephrine (Levophed) 16 mg in 0.9% sodium chloride 250 mL infusion (weight based) (premix) 0.01-3.3 mcg/kg/min IntraVENous Continuous Rex Ellis MD 6.52 mL/hr at 12/25/24 1622 0.1 mcg/kg/min at 12/25/24 162 ondansetron ODT (Zofran-ODT) disintegrating tablet 4 mg 4 mg Oral q8h PRN Jodi Riggs DO Or ondansetron (Zofran) injection 4 mg 4 mg IntraVENous q6h PRN Jodi Riggs DO pantoprazole (ProtoNix) EC tablet 40 mg 40 mg Oral Nightly Radhaherson Myers DO Or pantoprazole (ProtoNix) 40 mg in sodium chloride (PF) 0.9 % 10 mL injection 40 mg IntraVENous Nightly Radha Myers DO 40 mg at 12/25/242030 Phenylephrine HCl (Pressors) 1 MG/10ML injection - Pyxis ADS Override Pull propofol (Diprivan) infusion 5-50 mcg/kg/min IntraVENous Continuous Stefan Street MD 20.9 mL/hr at 12/25/24 1920 50 mcg/kg/min at 12/25/24 192 sodium bicarbonate 150 mEq in dextrose 5 % 1,000 mL infusion 150 mL/hr IntraVENous Continuous Rex Ellis MD 150 mL/hr at 12/25/24 1511 150 mL/hr at 12/25/24 1511 sodium chloride 0.9 % infusion 5-250 mL/hr IntraVENous PRN Jodi Riggs DO thiamine (Vitamin B1) 500 mg in sodium chloride 0.9 % 100 mL IVPB 500 mg IntraVENous q8h Jodi Riggs DO Stopped at 12/25/24 1437 Followed by [START ON 12/26/2024] thiamine (Vitamin B1) 250 mg in sodium chloride 0.9 % 100 mL IVPB 250 mg IntraVENous q24h Jodi Riggs DO Followed by [START ON 12/31/2024] thiamine (Vitamin B1) tablet 100 mg 100 mg Oral Daily Jodi Riggs DO vancomycin IVPB 1250 mg in 250 mL NS (premix) 1,250 mg IntraVENous q24h Jodi Riggs DO 166.7 mL/hr at 12/25/242103 1,250 mg at 12/25/242103 vasopressin (Vasostrict) 20 units in dextrose 5% 100 mL infusion 0.01-0.03 Units/min IntraVENous Continuous Rex Ellis MD 9 mL/hr at 12/25/24 1219 0.03 Units/min at 12/25/24 1219 TECHNICAL ASPECTS: This continuous scalp EEG study with video was carried out at [facility]. Scalp electrodes were positioned in person by an seating and mobility technologist, following patient education, according to the 10-20 International system of electrode placement and maintained for integrity and quality of the recording. EEG data with video was recorded continuously and digitally stored. The seating and mobility technologist reviewed all automated detections and manual events and prepared the data for archiving and provider review. Referential and bipolar montages were used for review. TECHNOLOGIST NOTES: No skull or scalp defects were observed. Patient is prone and can only be moved at scheduled times, was not able to move patient to do right bridger. This video-EEG monitoring was continuously monitored, 4 patients per technologist. BACKGROUND ACTIVITY: Posterior background activity: No observable posterior dominant rhythm was seen. Beta range: Diffuse alpha-beta range activity (8-25 Hz, 10-20 uV) was seen. Sleep: No sleep architecture was observed. Normal Variants: No normal variants were identified. SLOWING: Continuous (greater than 90% of the recording) diffuse delta range (0.5-2 Hz, 20-30 uV) slowing is seen with diffuse alpha-beta range (8-25 Hz, 10-15 uV) activity. These features were non-responsive to stimulation. 00:06:35 -Continuous slowing, generalized + intermixed fast activity, generalized (AP Bipolar, LFF=1Hz, HFF=70Hz, Sens=5 uV/mm) INTERICTAL EPILEPTIFORM ACTIVITY: No epileptiform activity was seen. ICTAL ACTIVITY: No ictal activity was seen. NON-EPILEPTIC EVENTS: None. ACTIVATION PROCEDURES: Photic stimulation was not performed. Hyperventilation was not performed. IMPRESSION AND ACTIONS TAKEN: This continuous EEG with video is abnormal. Continuous diffuse marked slowing is seen with intermixed diffuse fast activity. These features are non-responsive to stimulation. No interictal epileptiform activity or seizures are observed. The findings are supportive of a severe global encephalopathy which is confounded by sedation. Compared with the previous day of recording, no significant changes are observed. Will continue video-EEG monitoring to evaluate the evolution of this encephalopathy. Mauro Cid, PhD Clinical Neurophysiologist Jori Barillas MD PhD Epilepsy Attending Associated Order(s): Central Line Insertion Post-Procedure Diagnose(s): Cardiac arrest (HCC) Central Line Insertion Date/Time: 12/25/2024 12:06 AM Performed by: Jenifer Fernandez MD Authorized by: Jenifer Fernandez MD Consent: The indications, risks, benefits, alternatives to the procedure were explained to the patient/surrogate decision maker and their questions answered. Consent was obtained to proceed with the procedure. Timeout: Completed immediately prior to the start of the procedure which included verification of the correct patient, correct site and agreement on the procedure to be done. Indication: Infusion(s) with high risk of extravasation injury Anesthetic: Local anesthetic used: lidocaine with epinephrine Procedure Details: Preparation: skin prepped with chlorhexidine Skin prep agent dried: skin prep agent completely dried prior to procedure Sterile barriers: all five maximum sterile barriers used - cap, mask, sterile gown, sterile gloves, and large sterile sheet Hand hygiene: hand hygiene performed prior to central venous catheter insertion Sterile technique: Sterile technique maintained throughout procedure. Central Line Type: central venous catheter Orientation: left Location details: subclavian Patient position: reverse Trendelenburg Catheter type: triple lumen Pre-procedure: landmarks identified Number of attempts: 1 Ultrasound guidance: no Post-Procedure: Post-procedure: line sutured, dressing applied and antimicrobial dressing applied Description/Findings: dark, non-pulsatile blood return obtained from all lumens Estimated blood loss: < 10 mL Complications: No apparent complications Follow-up chest x-ray: ordered Assistants & Supervision: I personally performed the procedure documented as signed by this procedure note Home Health Care Social Worker: Dr. Ellis The attending physician was physically present while the proceduralist performed pérez/critical components of the procedure. Attending: Dr. Ellis Cosigned by Rex Ellis MD at 12/25/2024 7:04 AM EDT Associated attfabricioation - Rex Ellis MD - 12/25/2024 7:04 AM EDT I was present throughout procedure. Electronically signed by Rex Ellis MD Associated Order(s): Arterial Line Insertion Post-Procedure Diagnose(s): Cardiac arrest (HCC) Arterial Line Insertion Date/Time: 12/24/2024 10:17 PM Performed by: Javi Waldrop DO Authorized by: Javi Waldrop DO Consent: The indications, risks, benefits, alternatives to the procedure were explained to the patient/surrogate decision maker and their questions answered. Consent was obtained to proceed with the procedure. Timeout: Completed immediately prior to the start of the procedure which included verification of the correct patient, correct site and agreement on the procedure to be done. Indications: Indications: hemodynamic monitoring Anesthetic: Local anesthetic used: lidocaine without epinephrine Preparation: Patient was prepped and draped in usual sterile fashion. Skin prepped: skin prepped with chlorhexidine Procedure Details: Orientation: right Location: radial Number of attempts: 1 Post-Procedure: Post-procedure: line sutured, dressing applied and antimicrobial dressing applied Description/Findings: Bright red pulsatile blood return noted and Waveform confirmed Estimated blood loss: < 5 mL Complications: No apparent complications Assistants & Supervision: Food Processing Chemist(s): Dr. Fernandez Home Health Care Social Worker: Dr. Caleb Lund The attending physician was physically present while the proceduralist performed pérez/critical components of the procedure. Attending: Dr. Ellis Cosigned by Rex Ellis MD at 12/25/2024 7:06 AM EDT Associated attfabricioation - Rex Ellis MD - 12/25/2024 7:06 AM EDT I was present for procedure. Electronically signed by Rex Ellis MD documented in this encounter [facility] 12-28-2024 Note [facility] 12-28-2024 Note [facility] 12-27-2024 Note [facility] 12-25-2024 Note [facility] 12-25-2024 Note Acceptable Specimen? Acceptable Specimen(Evaluation not needed) Gram Stain 1+ Yeast Like Organisms 1+ Gram positive cocci No Epithelial cells Rare White Blood Cells [facility] Comment on above: Performed By: #### M 100.2400, M100.2000 #### [facility] [address] [place], [place], [id number] 12-25-2024 Note [facility] 12-24-2024 Note [facility] 12-24-2024 Note [facility] 12-24-2024 History and physical note [facility] [place] [facility] Cardiology History and Physical Reason for Consult/Chief Complaint: Cardiac Arrest History of Present Illness: [facility] is a 34 y.o. male with PMH of alcohol use, tobacco use, and cocaine use. Patient presented from [facility], reviewed information from paper chart: Upon EMS arrival, bystanders stated that he had a pulse, but when they checked he was pulseless. He was found to be in ventricular fibrillation so he was defibrillated at 120 J into asystole. They performed CPR for 12 minutes and 2 rounds of epinephrine were given prior to return of spontaneous circulation. They did note that he had a low blood pressure afterwards, as well as low blood sugar. They administered D10, and had intubated the patient. Normal CT head. Per EMS they gave 4 Narcan's initially on scene. Spoke with family, patient's mother, longtime girlfriend, brother, and his best friend. Per family, patient was at his apartment with a friend. They were drinking alcohol and smoking marijuana yesterday evening. When the friend woke up she had noted that the patient was sitting on the couch with vomit on his shirt and was not waking up. She then called the long-term girlfriend who arrived at the apartment and called EMS. Family had noted that yesterday morning patient was complaining of palpitations and chest pain. Denies any personal cardiac history for the patient and does not take any medications. States he previously smoked tobacco however quit and now occasionally vapes. Drinks 2-3 regular sized/tall boys per day. Denies history of IV drug use. Admits to intermittent cocaine use. Friend reported they did not use any drugs other than smoking marijuana yesterday evening. Family history significant for maternal grandfather AL age 52 and AL in paternal grandmother. On bedside evaluation, patient responds to pain. Moves all extremities independently and opens eyes to sternal rub. Patient is off all sedation on arrival. Remains mechanically ventilated with OG tube in place. Gag reflex intact. 34. CRF + Cig PMH: EtOH, cocaine, THC abuse. HPI: Conflicting stories from family. Apparently was using alcohol and THC. Azul t to sleep w Girl Friend. She awoke to find him unresponsive w vomit on chest. Called EMS who found patient to be in VF. ROSC 12 minutes after ACLS protocol started. Intubated. Trasfered to [facility] from [place] [facility]. POCUS Echo w low normal LV function without focal WMAs. [facility] consulted for vent managent, aspiration, possible sepsis and polysubstance abuse. Past Medical History: No past medical history on file. Past Surgical History: No past surgical history on file. Family History: No family history on file. Social History: Medications: calcium gluconate, 4,000 mg, IntraVENous, Once folic acid 1 mg in dextrose 5 % 50 mL IVPB, 1 mg, IntraVENous, Daily heparin, 5,000 Units, SubCUTAneous, 2 times per day lactated ringers, 1,000 mL, IntraVENous, Once mupirocin, 1 Application, Nasal, BID thiamine (Vitamin B1) 500 mg in sodium chloride 0.9 % 100 mL IVPB, 500 mg, IntraVENous, q8h Followed by [START ON 12/26/2024] thiamine (Vitamin B1) 250 mg in sodium chloride 0.9 % 100 mL IVPB, 250 mg, IntraVENous, q24h Followed by [START ON 12/31/2024] thiamine, 100 mg, Oral, Daily vancomycin, 1,500 mg, IntraVENous, Once Allergies: Patient has no allergy information on record. Reviewed Review of Systems: All other systems were reviewed and are negative other than as noted in the HPI. Physical Examination: Vitals: Vitals: 12/24/24195312/24/242013 BP: (!) 81/62 Pulse: 97 99 Resp: 20 20 SpO2: 94% 91% No intake or output data in the 24 hours ending 12/24/242058 Wt Readings from Last 3 Encounters: No data found for Wt Constitutional: Mechanical ventilation Psychiatric: A &O x 0. Eyes: Pupils are equal and round; Conjunctiva are injected; Sclera are non-icteric. ENMT: Ears/nose without external abnormalities. Oral mucosa is pink and dry Neck: No JVD. No carotid bruits; No thyromegaly. Respiratory: Lungs are coarse bilaterally. No rales or wheezes. Mechanically ventilated Heart: Normal S1 and S2. No murmur; No rub; No gallop. Abdomen: Normal BS, soft, non-tender, non-distended; no hepatomegaly. Extremities/Skin: No LE edema; Skin warm to touch and well perfused Musculoskeletal: Head - normocephalic. Neck - supple Laboratory Tests: No results for input(s): "CKTOTAL", "CKMB", "CKMBINDEX", "TROPONINI" in the last 72 hours. No results found for: TROPHSBASE No results found for: "TROPHS2" No results found for: TROPDELTBASE No results found for: "TROPHS3" No results found for: TROPDELTSEC No results for input(s): "NA", "K", "CL", "CO2", "BUN", "CREATININE", "GLU" in the last 72 hours. Recent Labs 12/24/242033 HGB 15.9 No results found for: "HGBA1C" No results found for: "TSH" No results found for: "CHOL" No results found for: "HDL" No results found for: "LDLCALC" No results found for: "TRIG" No results found for: "CHOLHDL" No results found for: LDLCHOLESTER No lab exists for component: NTPROBNP No components found for: "LVEF", LVEFMODE Radiology: CXR (image reviewed): Cardiac Tests Personally Reviewed: Last EKG 12/24/24 ECG 12-LEAD (Preliminary) This result has not been signed. Information might be incomplete. Impression Sinus rhythm Borderline T wave abnormalities Tracing reviewed. Telemetry findings: N/A Reports reviewed: Last Echo No results found for this or any previous visit. Last Cath No results found for this or any previous visit. Last Stress Test No results found for this or any previous visit. Last EP study No results found for this or any previous visit. * No results found for: "EFBP", "PLVEF", "LVEFPHYS", "LVEF2D", EF CHANTE SCORE: 105 points CHANTE Score Link CORE MEASURE DATA SIRS Criteria Sepsis Criteria Severe Sepsis Criteria Septic Shock Criteria Must meet 2: [] Temperature > 100.4 F (38 C) or < 96.8 F (36 C) [] HR > 90 [] RR > 20 [x] WBC > 12 or < 4 or 10% bands Must be confirmed or suspected to move forward with diagnosis of sepsis. Must select at least one: [x] Bacterial Infection Confirmed or Suspected. [] Viral Infection Confirmed or Suspected. [] No infection present. Patient does not meet criteria for Sepsis. Must meet 1: [x] Lactate > 2 or [x] Signs of Organ Dysfunction: - SBP < 90 or MAP < 65 - Altered mental status - Creatinine > 2 or increased from baseline - Urine Output < 0.5 ml/kg/hr - Bilirubin > 2 - INR > 1.5 - Platelets < 100,000 - Acute Respiratory Failure as evidenced by new need for NIPPV or mechanical ventilation [] No criteria met for Severe Sepsis. Must meet 1: [] Lactate = or > 4 or [x] SBP < 90 or MAP < 65 for at least two readings in the first hour after fluid bolus administration [] No criteria met for Septic Shock. No data found. Recent Labs 12/24/242033 WBC 2.4* LACTATE 3.6* PLT 229 Sepsis Identified at 1950 hours. Fluid Resuscitation Rational: Due to concern for fluid overload, ordered less than 30cc/kg actual body weight. Actual fluid amount given: 2000 mL Infection Source: Unknown Reassessment Exam: see follow up note Jodi Riggs, DO Assessment/Plan The patient presented in NYHA Class [] I [] II [] III [] IV Cardiac arrest V-fib arrest Acute hypoxemic respiratory failure - Unknown etiology, check EKG and trend troponin - MICU consulted, appreciate recommendations - TTE - UDS, CK, ethanol level, ethyl glucuronide - ABG ordered -CMP every 4 hours, daily CBC, mag, and phos -Check TSH -PT/OT -Consult dietary for TF management Currently hemodynamically stable. Unresponsive but does make some spontaneous movements. HST elevated but could be secondary to arrest ad not ACS. Formal echo pending. Would recommedn eventual ischemic work up if/when he recovers. Septic Shock - Unknown source; 2L IVF ordered - Start broad-spectrum antibiotics with vancomycin and cefepime (patient has allergy listed to penicillins and paper chart for history-unknown reaction) - Obtain blood cultures and lactic acid - Check Pro-Taurus - Concern for aspiration, check infectious respiratory workup - Stat chest x-ray -May need to start Levophed, ordered per MICU and placed A. Line for closer BP monitoring [facility] consulted for vent mgt and work up of sepsis and possible aspiration. On broad spectrum empiric Abx. Cx pending. Transfer to [facility] service w cardiology to follow. Transaminitis -Unknown etiology in the setting of alcohol use vs ?Shock liver -Obtain PT/INR to calculate Maddrey score for possible need for steroids, platelets wnl. -Order RUQ US -Check HIV and acute hepatitis panel ABRIL Hyperkalemia - Likely component of prerenal plus hypotension - Patient given 1 L IV fluids - Obtain UA, urine creatinine, urine sodium, urine osm and serum osm - Obtain renal ultrasound - Check CK level -Trend CMP every 4 hours -Calcium gluconate, Insulin and Lokelma ordered Tobacco use Alcohol use History of drug use-cocaine - Check UDS - High-dose thiamine and IV folic acid ordered - CIWA precautions - Ethanol and ethyl oh glucuronide ordered -POCT every 6 hours Jodi Riggs DO DATE of SERVICE: 12/24/2024 I, Dr. Bebo Jones, saw and evaluated the patient on 12/25/2024. I personally obtained the pérez and critical portions of the history and physical exam. I reviewed the labs, imaging studies, and electronic medical record. I reviewed the resident's documentation, and discussed the patient with the resident. I agree with the resident's medical decision making and have edited the note to reflect my clinical findings and my assessment and plan. documented in this encounter [facility] Health Evaluation note Diagnosis Cardiac arrest (HCC)- Primary Cardiac arrest Cardiac arrest (HCC) Cardiac arrest Lower extremity edema Edema Mucus plugging of bronchi Transaminitis Nonspecific elevation of levels of transaminase or lactic acid dehydrogenase (LDH) Abnormal liver ultrasound Alcohol use disorder documented in this encounter [facility] HealthEvaluation noteNo assessment information availableWCleveland Clinic [facility] Work Phone: Evaluation note* Diagnosis Abscess of lower lobe of left lung with pneumonia (HCC)- Primary 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 Other acute pulmonary embolism without acute cor pulmonale (HCC) documented in this encounter [facility] HealthEvaluation note* Diagnosis Abscess of lower lobe of left lung with pneumonia (HCC) documented in this encounter [facility]* Diagnosis Abscess of lower lobe of left lung with pneumonia (HCC) documented in this encounter [facility]* Diagnosis Lung nodule seen on imaging study- Primary 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 Cardiac arrest (HCC) Cardiac arrest Other pulmonary embolism without acute cor pulmonale, unspecified chronicity (HCC) Other acute pulmonary embolism without acute cor pulmonale (HCC) [facility] (narrative)No reason for referral information availableWCleveland Clinic Mer[facility] Work Phone: Reason for visit Narrative* Auth/Cert (Routine) Specialty Diagnoses / Procedures Referred By Contac t Referred To Contact Diagnoses Cardiac arrest (HCC) Cardiac Arrest Procedures 0 Bebo Jones MD [address] [place] [id number] Phone: tel: fax: [facility] Cardiac Thoracic Vascular Intensive Care Unit CTV ICU T[address] [place] [phone] Phone: tel: Referral ID Status Reason Start Date Expiration Date Visits Re quested Visits Authorized [id number] 1 1 [facility] for visit Narrative* Hospital - Outpatient (Routine) - Closed Specialty Diagnoses / Procedures [facility] Referred To Contact Diagnoses Abscess of lower lobe of left lung with pneumonia (HCC) Procedures Complete PFT pre and post bronchodilator Ry Altamirano MD [address] [place] [address] Phone: tel: fax: [address] [phone] Phone: tel: Referral ID Status Reason Start Date Expiration Date Visits Re quested Visits Authorized [id number] Closed 02/03/2025 01/29/2026 1 1 [facility] for visit Narrative* Imaging (Routine) - Closed Specialty Diagnoses / Procedures Referred By Allison ortez Referred To Contact Radiology Diagnoses Abscess of lower lobe of left lung with pneumonia (HCC) Procedures CT chest wo IV contrast Ry Altamirano MD [address] [place] [address] Phone: tel: fax: Referral ID Status Reason Start Date Expiration Date Visits Re quested Visits Authorized [id number] Closed 02/03/2025 02/03/2026 1 1 [facility] Summary Purpose Family History Unknown Family Member Name Dates Details Maternal Grandmother Comments:high bp Status:Active Mother Comments:anxiety, high blood pressure Status:Active Unknown Family Member Name Dates Details Maternal Grandmother Comments:high bp Status:Active Mother Comments:anxiety, high blood pressure Status:Active Advance Directives Date Activated Date Inactivated Comments 12/24/2024 7:58 PM 01/09/2025 4:40 PM Advance Directive Response Recorded Date/ Time Do you have a Healthcare Power of Overweaver? No December 24, 2024 6:38pm Date Activated Date Inactivated Comments 12/24/2024 7:58 PM 01/09/2025 4:40 PM Instructions Name Dates Details How to access health informa tion online Indication:Current smoker Start:17-Nov-2018 Instruction Type:Patient Education How to access health informa tion online - Detail Indication:Current smoker Start:17-Nov-2018 Instruction Type:Patient Education Patient Instructions Indication:Current smoker Start:17-Nov-2018 Instruction Type:Provider Instructions for Treatment Name Dates Details Current smoker : How to acce ss health information online Indication:Current smoker Current smoker : How to acce ss health information online - Detail Indication:Current smoker Current smoker : Patient Ins tructions Indication:Current smoker Chief Complaint and Reason for Visit Chief Complaint Admit Date Overdose December 24, 2024 2:32pm Additional Source Comments (unrecognized sect ion and content) No Status Records FoundNo Status Records FoundNo Status Records Found INFORMATION SOURCE (unrecogn ized section and content) DATE CREATED AUTHOR 11/21/2018 [facility] DATE CREATED AUTHOR AUTHOR'S ORGANIZ ATION 03/05/[address] [facility] DATE CREATED AUTHOR AUTHOR'S ORGANIZ ATION 04/22/2025 [facility] Scheduled Active and Recently Administ ered Medications (unrecognized section and content) Medication Order 01/07/2025 01/08/2025 01/09/2025 amoxicillin-clavulanate (Augmentin) 875-125 MG per tablet 1 tablet 1 tablet (875 mg), Oral, Every 12 hours scheduled (2 times per day), First dose on 01/08/25 at 2100, For 22 days, Suspected Indication (Select all that apply): Other, Other Abx Indication: focal lung abscess 2125 (Given - Provider: Shiv Torres RN) 0848 (Given - Provider: Jazlyn Rogers RN) ampicillin-sulbactam (Unasyn) 3,000 mg in sodium chloride 0.9 % 100 mL IVPB (Add-Loveland) (CANCELED) 3,000 mg, IntraVENous, at 200 mL/hr, Administer over 30 Minutes, Every 6 hours, First dose on 01/07/25 at 1530, For 52 hours, ADD-Loveland bag, Suspected Indication (Select all that apply): Pneumonia (HAP) 1609 (New Bag - Provider: Yoel Najera RN)1648 (Stopped - Provider: Yoel Najera RN)2114 (New Bag - Provider: Mary Jane Juan RN)2147 (Stopped - Provider: Mary Jane Juan, MIRANDA) 0232 (New Bag - Provider: Mary Jane Juan RN)0309 (Stopped - Provider: Mary Jane Juan RN)0830 (New Bag - Provider: Yoel Najera RN)0903 (Stopped - Provider: Yoel Najera RN)1404 (New Bag - Provider: Yoel Najera RN)1435 (Stopped - Provider: Yoel Najera RN) apixaban (Eliquis) tablet 10 mg(Linked Group 1) 10 mg, Oral, 2 times daily, First dose on Thu01/08/25 at 2100, For 7 days, Anticoagulant 2126 (Given - Provider: Shiv Torres RN) 0848 (Given - Provider: Jazlyn Rogers RN) apixaban (Eliquis) tablet 5 mg(Linked Group 1) 5 mg, Oral, 2 times daily, First dose on Thu01/15/25 at 2100, Anticoagulant enoxaparin (Lovenox) syringe 60 mg (CANCELED) 60 mg (rounded from 62.8 mg = 1 mg/kg 62.8 kg), SubCUTAneous, Every 12 hours, First dose on Thu01/06/25 at 1800, Indication of Use: Treatment-DVT/PE 0600 (Given - Provider: Sarah Pereira RN)1702 (Given - Provider: Yoel Najera RN) 0558 (Given - Provider: Mary Jane Juan RN)1703 (Given - Provider: Yoel Najera RN) folic acid (Folvite) tablet 1 mg 1 mg, Oral, Daily, First dose (after last modification) on Thu01/03/25 at 0900 0907 (Given - Provider: Yoel Najera RN) 0829 (Given - Provider: Yoel Najera RN) 0848 (Given - Provider: Jazlyn Rogers RN) furosemide (Lasix) injection 20 mg (COMPLETED) 20 mg, IntraVENous, Once, On Thu01/08/25 at 0945, For 1 dose 1015 (Given - Provider: Yoel Najera RN) Lactobacillus 0.05-0.05 MG 4 tablet 4 tablet, Oral, Daily, First dose (after last reorder) on Thu01/09/25 at 1000, For 30 days 1214 (Given - Provider: Jazlyn Rogers, MIRANDA - Comment: pt off floor for testing) Lidocaine 4 % patch 1 patch 1 patch, TransDERmal, Administer over 12 Hours, Daily, First dose on Thu12/28/24 at 0900, Apply patch to chest. Patch may remain in place for up to 12 hours in any 24 hour period. 09 (Not Given - Provider: Yoel Najera RN - Reason: Patient/family refused) 08 (Not Given - Provider: Yoel Najera RN - Reason: Patient/family refused) 0846 (Not Given - Provider: Jazlyn Rogers, MIRANDA - Reason: Patient/family refused) Lidocaine 4 % patch 1 patch 1 patch, TransDERmal, Administer over 12 Hours, Daily, First dose (after last modification) on Thu01/05/25 at 0000, Apply patch to L Lower back. Patch may remain in place for up to 12 hours in any 24 hour period. 906 (Medication Applied - Provider: Yoel Najera RN)2123 (Medication Removed - Provider: Mary Jane Juan RN) 827 (Not Given - Provider: Yoel Najera RN - Reason: Patient/family refused) 0845 (Not Given - Provider: Jazlyn Rogers RN - Reason: Patient/family refused) pantoprazole (ProtoNix) 40 mg in sodium chloride (PF) 0.9 % 10 mL injection(Linked Group 2) 40 mg, IntraVENous, Administer over 2 Minutes, Nightly, First dose on Thu12/25/24 at 2100, Give only if unable to tolerate po. 2113 (See Alternative - Provider: Mary Jane Juan RN) 2137 (See Alternative - Provider: Shiv Torres, RN) pantoprazole (ProtoNix) EC tablet 40 mg(Linked Group 2) 40 mg, Oral, Nightly, First dose on Thu12/25/24 at 2100, Do not crush, chew, or split. 2113 (Given - Provider: Mary Jane Juan, RN) 2137 (Given - Provider: Shiv Torres, RN) QUEtiapine (SEROquel) tablet 100 mg (CANCELED) 100 mg, Oral, Nightly, First dose (after last modification) on Thu01/03/25 at 2100 2113 (Given - Provider: Mary Jane Juan, RN) 2125 (Given - Provider: Shiv Torres, RN) thiamine (Vitamin B1) tablet 100 mg(Linked Group 3) 100 mg, Oral, Daily, First dose on Thu12/31/24 at 2200 0600 (Given - Provider: Sarah Pereira, MIRANDA) 0558 (Given - Provider: Mary Jane Juan, RN) 0523 (Given - Provider: Shiv Torres, RN) PRN Medication Order 01/07/2025 01/08/2025 01/09/2025 dextrose 5 % infusion 100 mL/hr, IntraVENous, PRN, Low Blood Sugar, Starting on Thu12/25/24 at 0909, Blood glucose less than 70 mg/dL and patient NOT ALERT or NPO and does not have IV access., After administration, attempt intravenous access and start D5W at 100 mL/hr. Repeat blood glucose in 15 minutes x2 and notify provider. dextrose 50 % solution 12.5 g 12.5 g, IntraVENous, PRN, low blood sugar, Starting on Thu12/25/24 at 0909, Blood glucose less than 70 mg/dL and patient NOT ALERT or NPO., If patient does not respond within 5 minutes, repeat dose x1. Start D5W at 100 mL/hour until ordering provider can be reached. Repeat blood glucose in 15 minutes. If blood glucose is less than 70 mg/dL, repeat treatment and recheck blood glucose in 15 minutes x2. If using Glucostabilizer, dose as instructed per system. glucagon (human recombinant) injection 1 mg 1 mg, IntraMUSCular, PRN, low blood sugar, Blood glucose less than 70 mg/dL and patient NOT ALERT or NPO and does not have IV access., Starting on Thu12/25/24 at 0909, After administration, attempt intravenous access and start D5W at 100 mL/hr. Repeat blood glucose in 15 minutes x2 and notify provider. glucose oral gel 15 g 15 g, Oral, As needed, low blood sugar, Starting on Thu12/25/24 at 0909, If blood glucose less than 50 mg/dL and patient ALERT and NOT NPO, give 2 tubes glucose gel. If blood glucose less than 70 mg/dL and patient ALERT and NOT NPO, give 1 tube glucose gel. Repeat blood glucose in 15 minutes. If blood glucose is less than 70 mg/dL, repeat treatment and recheck blood glucose in 15 minutes x2 and notify provider. haloperidol lactate (Haldol) injection 2 mg 2 mg, IntraMUSCular, Every 2 hour PRN, agitation, first line, Starting on Thu12/30/24 at 0737, IM route of administration preferred. Because of the risk of TdP and QT prolongation, ECG monitoring is recommended if haloperidol is given IV hydrALAZINE (Apresoline) injection 20 mg 20 mg, IntraVENous, Every 4 hours PRN, high blood pressure, SBP >180, Starting on Thu12/30/24 at 0238 ipratropium-albuterol (Duo-Neb) 0.5-2.5 mg/3 mL nebulizer solution 3 mL 3 mL, Nebulization, As needed, wheezing, shortness of breath, Starting on Thu12/28/24 at 2022 labetalol (Normodyne,Trandate) injection 10 mg 10 mg, IntraVENous, Every 4 hours PRN, high blood pressure, 1st line, SBP >180. Hold for HR <60, Starting on Thu12/30/24 at 0925 metoprolol tartrate (Lopressor) injection 5 mg 5 mg, IntraVENous, Every 5 min PRN, see admin instructions, Starting on Thu01/06/25 at 1109, For 4 doses, +++CT Angiogram medication: pre-scan+++ Administer if HR 61-65 BPM. Repeat every 5 minutes for 3 additional doses if HR remains greater than 65 BPM naloxone (Narcan) injection 0.4 mg 0.4 mg, IntraVENous, Every 5 min PRN, opioid reversal, respiratory depression, over sedation, RR <10, pinpoint pupils, Starting on 12/24/24 at 1956, +++notify control systems engineer provider if used+++ ondansetron (Zofran) injection 4 mg(Linked Group 4) 4 mg, IntraVENous, Every 6 hours PRN, nausea, vomiting, Starting on 12/24/24 at 1956, 1st Line. Give IV if patient is unable to take orally. If inadequate response within 60 minutes, proceed to next-line agent or contact provider if no further options ordered. ondansetron ODT (Zofran-ODT) disintegrating tablet 4 mg(Linked Group 4) 4 mg, Oral, Every 8 hours PRN, nausea, vomiting, Starting on 12/24/24 at 1956, 1st Line. If inadequate response within 60 minutes, proceed to next-line agent or contact provider if no further options ordered. Patient should allow tablet to dissolve on tongue. Do not remove from blister pack until just before administering. oxyCODONE (Roxicodone) immediate release tablet 2.5 mg(Linked Group 5) 2.5 mg, Oral, Every 4 hours PRN, moderate pain (4-6), Starting on Leticia 01/05/25 at 1943 0523 (See Alternativ e - Provider: Shiv Torers RN) oxyCODONE (Roxicodone) immediate release tablet 5 mg(Linked Group 5) 5 mg, Oral, Every 4 hours PRN, severe pain (7-10), Starting on Leticia 01/05/25 at 1943 0523 (Given - Provid er: Shiv Torres RN - Comment: throat pain from intubation) polyethylene glycol (PEG) 3350 (Miralax) packet 17 g 17 g, Oral, Daily PRN, constipation, Starting on Thu12/28/24 at 0837, 1st line for treatment of constipation - give scheduled if no bowel movement in past 24 hours. simethicone (Mylicon) chewable tablet 80 mg 80 mg, Oral, 4 times daily PRN, flatulence, Starting on Thu01/03/25 at 1721 sodium chloride 0.9 % infusion 5-250 mL/hr, IntraVENous, PRN, if patient receiving piggyback infusions and maintenance fluids are not ordered OR KVO fluids to protect IV site / prevent frequent line interruptions / long duration, Starting on 12/24/24 at 1956, For piggyback infusion, administer at same rate as piggyback for a total of 25 mL. Enter 25 mL into dose field and piggyback rate into rate field of order. If piggyback is infusing at a rate less than 100 mL/hr, enter 25 mL into dose field and 100 mL/hr into rate field of order. For KVO fluids, enter rate of 20 mL/hr or less into rate field of order. sodium chloride 3 % hypertonic nebulizer solution 4 mL 4 mL, Nebulization, 2 times daily PRN, cough, Starting on Thu01/04/25 at 1100 Linked Groups Order Group 1: apixaban (Eliquis) tablet 10 mgJump to med 10 mg, Oral, 2 times daily, First dose on Thu01/08/25 at 2100, For 7 days, Anticoagulant Followed by apixaban (Eliquis) tablet 5 mgJump to med 5 mg, Oral, 2 times daily, First dose on Thu01/15/25 at 2100, Anticoagulant Group 2: pantoprazole (ProtoNix) EC tablet 40 mgJump to med 40 mg, Oral, Nightly, First dose on 12/25/24 at 2100, Do not crush, chew, or split. Or pantoprazole (ProtoNix) 40 mg in sodium chloride (PF) 0.9 % 10 mL injectionJump to med 40 mg, IntraVENous, Administer over 2 Minutes, Nightly, First dose on 12/25/24 at 2100, Give only if unable to tolerate po. Group 3: thiamine (Vitamin B1) 500 mg in sodium chloride 0.9 % 100 mL IVPB (COMPLETED) 500 mg, IntraVENous, at 200 mL/hr, Administer over 30 Minutes, Every 8 hours, First dose on 12/24/24 at 2200, For 2 days, Protect from light. Followed by thiamine (Vitamin B1) 250 mg in sodium chloride 0.9 % 100 mL IVPB (COMPLETED) 250 mg, IntraVENous, at 200 mL/hr, Administer over 30 Minutes, Every 24 hours, First dose on 12/26/24 at 2200, For 5 days, Protect from light. Followed by thiamine (Vitamin B1) tablet 100 mgJump to med 100 mg, Oral, Daily, First dose on 12/31/24 at 2200 Group 4: ondansetron ODT (Zofran-ODT) disintegrating tablet 4 mgJump to med 4 mg, Oral, Every 8 hours PRN, nausea, vomiting, Starting on 12/24/24 at 1956, 1st Line. If inadequate response within 60 minutes, proceed to next-line agent or contact provider if no further options ordered. Patient should allow tablet to dissolve on tongue. Do not remove from blister pack until just before administering. Or ondansetron (Zofran) injection 4 mgJump to med 4 mg, IntraVENous, Every 6 hours PRN, nausea, vomiting, Starting on 12/24/24 at 1956, 1st Line. Give IV if patient is unable to take orally. If inadequate response within 60 minutes, proceed to next-line agent or contact provider if no further options ordered. Group 5: oxyCODONE (Roxicodone) immediate release tablet 2.5 mgJump to med 2.5 mg, Oral, Every 4 hours PRN, moderate pain (4-6), Starting on Leticia 5/15/25 at 1943 Or oxyCODONE (Roxicodone) immediate release tablet 5 mgJump to med 5 mg, Oral, Every 4 hours PRN, severe pain (7-10), Starting on Leticia 01/05/25 at 1943 Care Teams (unrecognized sec tion and content) Cpr Instructor Relationship Specialty Start Date End Date Breanna Roman [address] [facility] [address] [place] [phone] PCP - General Family Medicine 12/26/24 Team Status: Active Member Role Status Dates Dr. Roman Rubio MD Primary Care Provider Active Team Status: Inactive Member Role Status Dates No Primary Care Physician Primary Care Provider Active Start: December 24, 2024 End: December 24, 2024 Hector Amaral MD Attending Provider Active Star t: December 24, 2024 End: December 24, 2024 Hector Amaral MD Emergency Provider Active Star t: December 24, 2024 End: December 24, 2024 Team Status: Inactive Member Role Status Dates Dr. Roman Rubio MD Primary Care Provider Active Start: January 23, 2025 End: January 23, 2025 Dr. Roman Rubio MD Attending Provider Active Start: January 23, 2025 End: January 23, 2025 Dr. Roman Rubio MD Referring Provider Active Start: January 23, 2025 End: January 23, 2025 Cpr Instructor Relationship Specialty Start Date End Date Breanna Roman [address] [facility] [address] [place] [phone] PCP - General Family Medicine 12/26/24 Cpr Instructor Relationship Specialty Start Date End Date Breanna Roman [address] [facility] [address] [place] [phone] PCP - General Family Medicine 12/26/24 Cpr Instructor Relationship Specialty Start Date End Date Breanna Roman [address] [facility] [address] [place] [phone] PCP - General Family Medicine 12/26/24 Cpr Instructor Relationship Specialty Start Date End Date Breanna Roman [address] [place] [phone] PCP - General Family Medicine 12/26/24 Cpr Instructor Relationship Specialty Start Date End Date Breanna Roman [address] [place] [phone] PCP - General Family Medicine 12/26/24 Cpr Instructor Relationship Specialty Start Date End Date Breanna Roman [address] [place] [phone] PCP - General Family Medicine 12/26/24 Goals (unrecognized section and content) Goals may be documented in a n alternate section Reason for Visit (unrecogniz ed section and content) Reason Comments New Patient Follow-Up Reason Onset Date Comments Care Coordination 01/09/2025 Nuance Search for Lung Nodule Reason Onset Date Comments Reschedule 04/20/2025 Reason Comments Follow-up FOR RECORDS PERTAINING TO PATIENTS WHO ARE OR HAVE BEEN ENROLLED IN A CHEMICAL DEPENDENCY/SUBSTANCEABUSE PROGRAM, SOME INFORMATION MAY BE OMITTED. This clinical summary was aggregated from multiple sources. Caution should be exercised in using it in the provision of clinical care. This summary normalizes information from multiple sources, and as a consequence, information in this document may materially change the coding, format and clinical context of patient data. In addition, data may be omitted in some cases. CLINICAL DECISIONS SHOULD BE BASED ON THE PRIMARY CLINICAL RECORDS. [employer] provides no warranty or guarantee of the accuracy or completeness of information in this document.
--- NOTE | 2025-07-12 22:50 | RAD_ITS ---
PROCEDURE: LEFT KNEE 4 OR MORE VIEWS 07/12/2025 REASON FOR EXAM: INJURY TECHNIQUE: Procedure Code: RADKN Modality: DX Procedure: KNEE 4 OR MORE VIEWS Laterality: Left COMPARISON: None. FINDINGS: No acute fracture or dislocation. Anatomic alignment. Preserved joint spaces. No significant joint effusion. Soft tissue swelling overlying the patella. No radiopaque foreign body. RAD/Knee 4 or More Views IMPRESSION: No acute fracture or dislocation. Prepatellar soft tissue swelling. Reading Location: [id number]
--- NOTE | 2025-07-12 23:00 | EDS_ITS ---
HPI History of Present Illness Chief Complaint: Lower Extremity Injury Informant: patient Narrative Narrative: Patient is a 35-year-old male with past medical history of pulmonary embolism currently on Eliquis. He states roughly 2 hours prior to arrival he was moving a refrigerator with a friend. He states the refrigerator slipped and slid down his left thigh and struck his left knee. He reports he had pain when this occurred however he was still able to ambulate. He noted that after the injury his knee became warm and swollen and he had difficulty moving it and therefore with concern for underlying trauma he presents for evaluation. He denies any numbness tingling or other injury. [facility] Medical History (Updated 07/13/25 @ 05:[address] Herbert Pasrtana DO) Pulmonary embolism Home Medications Medication Instructions Recorded Last Taken Type apixaban 5 mg tablet (Eliquis) 5 mg PO BID 07/12/25 Un known History oxycodone-acetaminophen 5 mg-325 1 tab PO Q6H PRN pain 3 days #12 07/12/25 Unknown Rx mg tablet (Percocet) tabs Allergy/AdvReac Type Severity Reaction Status Date / Time barium sulfate Allergy Unknown Unknown Verified 07/12/25 22:18 Penicillins Allergy Unknown unknown Verified 07/12/25 22:18 Social History Smoking Status: Current every day smoker tobacco type: cigarettes ROS ROS ED Constitutional Constitutional ED: Denies chills or fever(s) Cardiovascular Cardiovascular: Denies chest pain Respiratory/Chest Respiratory/Chest: Denies cough or dyspnea Gastrointestinal Gastrointestinal: Denies abdominal pain, diarrhea, nausea or vomiting Musculoskeletal Musculoskeletal: Reports other Details: Positive left knee pain ; Denies back pain Integumentary Reports other Details: Positive swelling and warmth anterior aspect left knee ; Denies Abrasions Neurologic Neurologic: Denies paresthesias or weakness Hematologic/Lymphatic Hematologic/Lymphatic: Reports easy bleeding and easy bruising EXAM Physical Exam Const Vital Signs: 07/12/25 22:18 07/12/25 23:55 Temperature 98.1 F 97.9 F Temperature Source Oral Pulse Rate 88 78 Respiratory Rate 18 18 Blood Pressure 130/99 H 134/93 H Blood Pressure Mean 109 106 Pulse Ox 99 98 Oxygen Delivery Method Room Air Positive well nourished and well developed General Appearance ED: well developed HEENT HEENT Narrative: Normocephalic atraumatic Eyes PERRL and EOMs intact bilaterally Neck supple Resp normal respiratory effort and clear to auscultation bilaterally Cardio regular rate and regular rhythm Extremity Extremity Narrative: Left lower extremity is neurovascularly intact. Patellar tendon is intact and knee ligaments are stable. Patient has soft tissue swelling with asymmetric warmth to the anterior aspect of the left knee over top the patella. No obvious bony deformity noted. Compartments are soft and compressible going against compartment syndrome Remainder the exam is normal No open wound noted Neuro oriented x3, CN's II-XII intact bilaterally and no sensory deficits noted Sensorium / Orientation: alert Psych mental status grossly normal Skin Skin Narrative: Soft tissue swelling with overlying warmth to the anterior aspect of the left knee over top of the patella Otherwise normal MDM MDM MDM Narrative Medical decision making narrative: Patient arrived to ER mildly hypertensive but overall stable vitals. He reported a direct trauma to his left knee. Physical exam does not display changes concerning for patellar tendon rupture or stabilizing ligamentous injury such as damage to the ACL PCL MCL or LCL. There is also no open wound to suggest laceration. There is soft tissue swelling over top the patella and this is most consistent with a traumatic prepatellar hematoma. An x-ray was obtained to rule out true joint effusion or potential fracture. X-ray was negative. Therefore the patient did not have compartment syndrome or ligamentous or tendon injury and therefore there is no need for emergent orthopedic consultation. The patient be placed in an Luis wrap to compress the hematoma but is otherwise safe for discharge. History & Record Review Discussion w/independent historian: Patient Radiography Diagnostic Testing: Clinical Impression(s) from Imaging Studies Knee X-Ray 07/12/25 22:50 IMPRESSION: No acute fracture or dislocation. Prepatellar soft tissue swelling. 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 Your physical exam indicates there is no damage or injury to your patellar tendon or stabilizing the ligament. Ice to the area to reduce swelling and pain and wear your Luis wrap for compression and over the next 1 to 2 weeks your body should reabsorb the blood on the top of the knee. Return to the ER should you have any further concerns Print Language: Thai Disposition Disposition: Home, Self Care Discharge Date/Time: 07/12/25 23:55
[2025-07-12 23:55] VITALS: BP 134/93; PULSE 78; RESP 18; TEMP 36.6; O2SAT 98
== END 2025-07-12 23:55 | disposition home or self-care (01) ==
PROVIDERS: Emergency Provider Emergency Medicine; PCP Family Medicine; Visit Provider Emergency Medicine
DX: S80.02XA Contusion of left knee, initial encounter (principal); Z86.711 Personal history of pulmonary embolism; Z79.01 Long term (current) use of anticoagulants; W22.8XXA Striking against or struck by other objects, initial encounter; Y93.89 Activity, other specified; F17.210 Nicotine dependence, cigarettes, uncomplicated
CPT/HCPCS: 73564; 99282